=== PATIENT | male | born 1985 | race Caucasian/White ===

== ENCOUNTER 2021-04-09 11:08 | Day surgery (SDC) | payer MEDICAID, SELFPAY ==
[2021-04-09] VITALS (11 sets, daily range): BP systolic 118–173; BP diastolic 43–90; PULSE 56–132; RESP 12–22; TEMP 36.1–37.6; O2SAT 90–99; BMI 23.0
--- NOTE | 2021-04-09 12:19 | PC.NURSE ---
This nurse spoke with [facility] dialysis nurse auto fleet maintenance manager [place] and clarified blood transfusion. Stated that blood could be ran in over two hours or normally since patient had had a recent dialysis treatment.
--- NOTE | 2021-04-09 15:31 | PC.NURSE ---
1510 - REPORT CALLED TO NURSE AND PT TRANSFERRED VIA WC TO CSU ROOM 104. ANTIBODYS WERE FOUND WHEN MATCHING BLOOD IN BLOOD BANK. BLOOD WILL NEED TO BE BROUGHT IN FROM [place] PT NOW OUT PATIENT IN A BED.
--- NOTE | 2021-04-10 00:07 | PC.NURSE ---
Transport company states they will not be able to pick patient up until morning.
[2021-04-10 09:37] VITALS: BP 124/62; PULSE 86; RESP 16; TEMP 36.2
--- NOTE | 2021-04-10 10:05 | PC.CHAP ---
Pastoral Care Encounter/Spiritual Assessment Type of Contact [] Declined cotton presser visit [] Patient/Family/Request visit [] Outpatient visit [] Follow-up visit [] Physician referral [] Code/Alert [x] Routine visit [] Staff referral [] Actively dying [] Patient sleeping [] Family support [] [] Out of room [] Palliative care [] [x] Receiving care in room [] Pre-surgical visit [] Trauma [] Long length of stay [] ICU visit [] Other: Relational/Emotional Strength [] Patient feels connected with others/family/visitors/staff [] Distress [] Loneliness/isolation [] Abandonment Spirituality of Patient [x] Person of Ilda [] Attends Restorationism of their Ilda [] Believes in Prayer [] Reads Bible or Zoroastrianism materials [] There are Spiritual issues to be addressed Adjunct Physics Instructor Interventions [x] Prayer [x] Active listening [x] Non-anxious presence [x] Spiritual/emotional support [] Crisis/trauma care [x] Spiritual counseling [] Bereavement support [] Provided bereavement packet [] Provided Bible/devotional materials [] Provided toy/stuffed animal, coloring book to patient or family member [] Provided Communion [] Anointing/[place] [] Salvation [x] Completed spiritual assessment [] Other: Impact on Illness or Injury [] Angry [] Fearful [] Anxious [] Often cries [] Exhaustion [] Unable to work [] Unable to attend zoroastrianism [] Unable to walk/stand [] Unable to read [] Unable to drive [] Unable to eat/drink [] Unable to sleep [] Unable to be with family [] Patient intubated [] Other: Summary short term had blood transfusion postive has a good attitude going home to day Time spent with patient 10 mins
--- NOTE | 2021-04-10 10:15 | PC.NURSE ---
Patient discharged home with family. Taken to ER entrance in a wheelchair.
== END 2021-04-10 10:15 | disposition home or self-care (01) ==
LOC: GILAB 11:12 → OPS 11:13 → CSU 17:44
PROVIDERS: PCP Emergency Medicine; Visit Provider Internal Medicine
DX: D64.9 Anemia, unspecified (principal)
CPT/HCPCS: 36415; 36430; 80500; 86850; 86870; 86900; 86902; 86920; P9016

== ENCOUNTER 2021-06-07 12:57 | Inpatient (IN) | payer MEDICARE, MEDICAID, SELFPAY ==
[2021-06-07] VITALS (34 sets, daily range): BP systolic 116–202; BP diastolic 77–137; PULSE 76–136; RESP 14–32; TEMP 36.4–37.3; O2SAT 78–98; BMI 27.1; BMI 28.6
--- NOTE | 2021-06-07 13:08 | USR_ITS ---
PROCEDURE INFORMATION: Exam: US Duplex Right Lower Extremity Veins, Limited Exam date and time: 06/07/2021 1:08 PM Age: 35 years old Clinical indication: Swelling (edema) of limb; Lower extremity, right; Additional info: Swelling to right arm TECHNIQUE: Imaging protocol: Real-time Duplex ultrasound of the Right Lower Extremity with 2-D lucero scale, color Doppler flow and spectral waveform analysis with image documentation. Limited exam was focused on the right lower extremity veins. COMPARISON: CT abdomen pelvis wo con [id number] 06/07/2021 1:29 PM FINDINGS: Right deep veins: Unremarkable. The common femoral, femoral, proximal profunda femoral and popliteal veins are patent without thrombus. Normal Doppler waveforms. Normal compressibility and/or augmentation response. Right superficial veins: Unremarkable. Saphenofemoral junction is patent without thrombus. Soft tissues: Unremarkable. US/[place] [id number] IMPRESSION: No evidence of deep vein thrombosis.
--- NOTE | 2021-06-07 13:13 | ECG_ITS ---
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 Measurements Intervals [place] Rate: 90 P: 30 OK: 230 QRS: 139 QRSD: 139 T: 69 QT: 406 QTc: 498 Interpretive Statements Atrial flutter with a fixed AV block INTRAVENTRICULAR CONDUCTION DELAY [130+ ms QRS DURATION] POSSIBLE RIGHT VENTRICULAR HYPERTROPHY [SOME/ALL OF: PROMINENT R IN V1, LATE TRANSITION, RAD, CAROLE, SSS] LATERAL MYOCARDIAL INFARCTION , PROBABLY OLD [40+ ms Q WAVE AND/OR ST/T ABNORMALITY IN I/aVL/V5/V6] INTERPRETATION BASED ON A DEFAULT AGE OF 40 YEARS No previous ECG available for comparison Electronically Signed On 06-08-2021 20:00:05 MACHINE OPERATOR HAY STACKER by Nathanael Yoder M.D. [id number]
--- NOTE | 2021-06-07 13:15 | CTR_ITS ---
PROCEDURE INFORMATION: Exam: CT Abdomen And Pelvis Without Contrast Exam date and time: 06/07/2021 1:15 PM Age: 35 years old Clinical indication: Abdominal pain; Generalized; Abdominal distension and pain TECHNIQUE: Imaging protocol: Computed tomography of the abdomen and pelvis without contrast. Radiation optimization: All CT scans at this facility use at least one of these dose optimization techniques: automated exposure control; mA and/or kV adjustment per patient size (includes targeted exams where dose is matched to clinical indication); or iterative reconstruction. COMPARISON: No relevant prior studies available. RADIATION DOSE METRICS: Total DLP (mGy-cm): 1757.82 FINDINGS: Heart: Cardiomegaly. Liver: Normal. No mass. Gallbladder and bile ducts: Normal. No calcified stones. No ductal dilation. Pancreas: Normal. No ductal dilation. Spleen: Normal. No splenomegaly. Adrenal glands: Normal. No mass. Kidneys and ureters: Bilateral atrophic kidneys. Stomach and bowel: Unremarkable. No obstruction. No mucosal thickening. Appendix: No evidence of appendicitis. Intraperitoneal space: There is a large amount of intraperitoneal fluid/ascites in the abdomen/pelvis. Vasculature: Unremarkable. No abdominal aortic aneurysm. Lymph nodes: Unremarkable. No enlarged lymph nodes. Urinary bladder: Unremarkable as visualized. Reproductive: Unremarkable as visualized. Bones/joints: Unremarkable. No acute fracture. Soft tissues: Soft tissue anasarca. CT/CT abdomen pelvis con [id number] IMPRESSION: 1. Cardiomegaly. 2. Bilateral atrophic kidneys. 3. There is a large amount of ascites and soft tissue anasarca. This can be seen with congestive heart failure or renal failure.
--- NOTE | 2021-06-07 13:15 | XRR_ITS ---
PROCEDURE INFORMATION: Exam: XR Chest Exam date and time: 06/07/2021 1:15 PM Age: 35 years old Clinical indication: Shortness of breath TECHNIQUE: Imaging protocol: XR of the chest. Views: 1 view. COMPARISON: CT abdomen pelvis wo con [id number] 06/07/2021 1:29 PM FINDINGS: Tubes, catheters and devices: Wide bore central venous catheter tip projects over the right atrium. Lungs: There is a ill-defined density in the mid to lower left lung field. Pleural spaces: Unremarkable. No pleural effusion. No pneumothorax. Heart/Mediastinum: Cardiomegaly. Bones/joints: Unremarkable. XR/XR chest 1V portable [id number] IMPRESSION: 1. Cardiomegaly. 2. Ill-defined density overlying the mid to lower left lung field is nonspecific and may represent overlying structures.
[2021-06-07 13:26] LABS: Basophils # 0.1 10^3/uL (0.0-0.1); Basophils % 0.4 %; Hematocrit 25.3 % (42.0-52.0); Lymphocytes # 0.3 10^3/uL (0.8-4.8); Lymphocytes % 1.6 %; Mean Corpuscular HGB Conc 31.6 g/dL (30.0-36.0); Mean Corpuscular Hemoglobin 27.5 pg (28.0-34.0); Mean Corpuscular Volume 86.9 fl (80-94); Monocytes # 0.7 10^3/uL (0.2-0.9); Neutrophils # 15.59 10^3/uL (1.8-7.7); Nucleated Red Blood Cells % 0 %; Platelet Count 190 10^3/cmm (130-400); Red Blood Count 2.91 10^6/uL (4.1-5.3); Red Cell Distribution Width 18.6 % (12.1-15.1); White Blood Count 17.1 10^3/uL (4.0-10.0)
--- NOTE | 2021-06-07 13:30 | W.ED.ABDPA2 ---
HPI - Abdominal Pain General: Chief Complaint: Abdominal Pain Stated Complaint: ABD PAIN Time Seen by Provider: 06/07/21 13:01 Source: patient and EMS History of Present Illness: HPI narrative: 35-year-old male presents emergency department chief complaint of abdominal pain fever reports that his he believes that his PICC site is infected. Patient reports he has missed the last 2 dialysis treatments reports last dialysis was this last Wednesday reports he missed Wednesday and Wednesday due to issues with his family not driving him to dialysis. Patient reports having a low-grade fever generalized malaise fatigue unwell he does not recall any known history of underlying cirrhosis or hepatitis. Patient reports malaise and fatigue mild shortness of breath reporting no other associated symptoms. MD elicited complaint: abdominal pain Associated Symptoms: Reports chills, fever(s) and nausea; Denies vomiting Review of Systems General: Reports: 10 or more systems reviewed and unremarkable except in HPI and below Const: Reports: fever(s), chills, body aches, change in appetite, fatigue and malaise Eyes: Denies: change in vision or blurry vision Card: Reports: edema and swelling of feet/ankles; Denies: chest pain or palpitations Resp: Reports: dyspnea; Denies: productive cough GI: Reports: abdominal pain and nausea; Denies: vomiting : Denies: flank pain Musc: Denies: extremity pain or extremity swelling Skin/Breast: Denies: rash or pruritus Neuro: Denies: headache(s) Psych: Denies: anxiety or depression Murphy/Lymph: Denies: easy bleeding All/Imm: Denies: urticaria, throat swelling or facial swelling [facility] ED PFSH: Medical History Alport syndrome HTN (hypertension) Physical Exam Narrative: EXAM NARRATIVE: Patient appears chronically unwell multiple healing scabs noted to his face. However is nontoxic in appearance afebrile. Patient appears to be quite unwell questionable appearance of being under the influence of drugs or alcohol due to his delayed response and drifting off with difficulty to follow commands. However no focal neurodeficits appreciated Const: COMMON NORMALS: no acute distress and patient oriented x3 GENERAL APPEARANCE: disheveled and appears older than stated age HENMT: COMMON NORMALS: normocephalic and atraumatic HEAD & SCALP: normocephalic and atraumatic Eye: COMMON NORMALS: Equal, round and reactive pupils present and EOMs intact bilaterally PUPIL: Yes Equal, round and reactive pupils present Neck/C-Spine: COMMON NORMALS: full ROM, supple and no JVD Lymph: LYMPHATIC: no lymphadenopathy noted Chest: COMMONS NORMALS: normal inspection of the chest and normal palpation of entire chest wall Resp: COMMON NORMALS: normal respiratory effort, No retractions and clear to auscultation bilaterally EFFORT & INSPECTION: Yes able to speak in complete sentences and Yes symmetric chest movement AUSCULTATION: clear to auscultation bilaterally Cardio: COMMON NORMALS: no JVD, regular rate and regular rhythm RATE: regular rate RHYTHM: regular rhythm GI: COMMON NORMALS: Normal to inspection, nondistended, normoactive bowel sounds present INSPECTION: Yes normal to inspection and Yes abdominal distension (Obvious abdominal wall distention and concerns of cirrhotic liver diseas no) AUSCULTATION: Yes Hypoactive bowel sounds present PALPATION: Yes Firmness to palpation present (GI), Yes Hepatosplenomegaly present and Yes Ascites present PERCUSSION: dullness to percussion : COMMON NORMALS: Yes no CVA tenderness BLADDER/KIDNEY EXAM: Yes no CVA tenderness Back/Pelvis: COMMON NORMALS: no CVA tenderness Extremity: COMMON NORMALS: normal to inspection and full ROM Neuro: COMMON NORMALS: patient oriented x3, CN's II-XII intact bilaterally, moves all extremities and no focal motor deficits Psych: COMMON NORMALS: mental status grossly normal, Normal thought process present, cooperative and normal affect THOUGHT PROCESS: Normal thought process present Skin: COMMON NORMALS: no rashes or lesions noted NARRATIVE SKIN EXAM: Multiple scabs and apparent mostly noted to the head and neck did not appear to be picked on multiple times GENERAL SKIN EXAM: no rashes or lesions noted Course ED course: Patient reports concerns of his PICC line being septic and being bad patient reports that his mother was cleaning off it which noted some greenish discharge from it advised the patient that if the discharge is from coming from the lens it should not be an issue however it was noted that the PICC line had suture has been removed at one point in time or cut from the skin in which it is totally floating at this time. Patient appears to be quite unwell in appearance underlying concerns of potential drugs and alcohol by staff or Based upon his current behavior. Advised the patient that as he is concerned his right extremity is inflamed and swollen he could have upper extremity DVT we will be obtaining a ultrasound to further rule that out he is neurovascular intact distally. Will continue to follow. Patient was started on Zosyn as well as Vanco mycin. He was found have a white blood cell count elevation in which he is also in need of emergent dialysis current potassium 7.6. The patient was started on calcium gluconate did contact our on-call nephrology that suggest 10 units of insulin and 1 amp of dextrose IVP I additionally talked to Dr. Regan ICU physician that will be excepting the patient's case to the ICU. Vital Signs: Vital signs: Vital Signs Temperature 98.7 F 06/07/21 13:06 Pulse Rate 102 H 06/07/21 13:06 Respiratory Rate 22 H 06/07/21 13:06 Blood Pressure 176/113 06/07/21 13:06 MDM - Abdominal Pain Lab Data: Labs: Lab Results 06/07/21 06/07/21 06/07/21 12:45 12:45 12:45 WBC 17.1 10^3/uL H 10 ^3/uL (4.0-10.0) RBC 2.91 10^6/uL L 10 ^6/uL (4.1-5.3) Hgb 8.0 g/dL L g/dL (11.7-16.6) Hct 25.3 % L % (42.0-52.0) MCV 86.9 fl fl (80-94) MCH 27.5 pg L pg (28.0-34.0) MCHC 31.6 g/dL g/dL (30.0-36.0) RDW 18.6 % H % (12.1-15.1) Plt Count 190 10^3/cmm 10^3 /cmm (130-400) MPV 12.0 fL H fL (7.4-10.4) Neut % (Auto) 91.0 % % Lymph % (Auto) 1.6 % % Ashley % (Auto) 4.0 % % Eos % (Auto) 0.0 % % Baso % (Auto) 0.4 % % Neut # (Auto) 15.59 10^3/uL H 1 0^3/uL (1.8-7.7) Lymph # (Auto) 0.3 10^3/uL L 10^ 3/uL (0.8-4.8) Ashley # (Auto) 0.7 10^3/uL 10^3/ uL (0.2-0.9) Eos # (Auto) 0.0 10^3/uL 10^3/ uL (0.0-0.8) Baso # (Auto) 0.1 10^3/uL 10^3/ uL (0.0-0.1) Nucleated RBC % (a uto) 0 % % Nucleated RBCs # 0.0 /100WBC /100W BC PT INR APTT Sodium 134 mmol/L L mmol /L (136-145) Potassium 7.6 mmol/L H* mmo l/L (3.5-5.1) Chloride 93 mmol/L L mmol/ L (98-107) Carbon Dioxide 14 mmol/L L mmol/ L (22-29) Anion Gap 34.6 H (5-19) BUN 106 mg/dL H* mg/d L (6-20) Creatinine 19.8 mg/dL H* mg/ dL (0.7-1.2) GFR Calculation 2.7 mL/min L mL/m in (90-130) Glucose 80 mg/dL mg/dL (65-115) Calculated Osmolal ity 310 mOsm/kg H mOs m/kg (285-295) Lactate Calcium 9.6 mg/dL mg/dL (8.5-10.5) Total Bilirubin 0.7 mg/dL mg/dL (0.15-1.2) AST 13 U/L U/L (0-40) ALT < 5 U/L U/L (0-41) Alkaline Phosphata se 66 IU/L IU/L (40-130) Troponin T Baselin e 114 ng/L H* ng/L (0-15) NT-Pro-B Natriuret Pep > 87597 pg/mL H p g/mL (0-125) Total Protein 6.7 g/dL g/dL (6.6-8.7) Albumin 3.9 g/dL g/dL (3.5-5.2) Globulin 2.8 g/dL g/dL (1.3-4.6) Lipase 10 U/L L U/L (13-60) Ethyl Alcohol < 10 mg/dL mg/dL (0-10) 06/07/21 06/07/21 13:38 13:38 WBC RBC Hgb Hct MCV MCH MCHC RDW Plt Count MPV Neut % (Auto) Lymph % (Auto) Ashley % (Auto) Eos % (Auto) Baso % (Auto) Neut # (Auto) Lymph # (Auto) Ashley # (Auto) Eos # (Auto) Baso # (Auto) Nucleated RBC % (a uto) Nucleated RBCs # PT 21.10 SECONDS H S ECONDS (12.1-14.9) INR 1.78 H (0.8-1.2) APTT 40.8 SECONDS H SE CONDS (23.9-36.7) Sodium Potassium Chloride Carbon Dioxide Anion Gap BUN Creatinine GFR Calculation Glucose Calculated Osmolal ity Lactate 1.0 mmol/L mmol/L (0.5-2.2) Calcium Total Bilirubin AST ALT Alkaline Phosphata se Troponin T Baselin e NT-Pro-B Natriuret Pep Total Protein Albumin Globulin Lipase Ethyl Alcohol Discharge Plan Discharge Patient Disposition: Admitted As Inpatient Clinical Impression: Acute hyperkalemia, Dialysis patient, noncompliant, Leukocytosis Condition: Stable Coding Level of Care Code ED Leather Drier for Glendy Fwd Exam Comprehensive
[2021-06-07] MEDS: sodium chloride 0.9% 500 ML 999 ML IV (13:49)
--- NOTE | 2021-06-07 13:54 | PC.NURSE ---
pt placed on continuous spo2, nibp, and cm.
[2021-06-07 14:01] LABS: INR 1.78 (0.8-1.2)
[2021-06-07 14:01] LABS: Troponin(5th) Baseline 114 ng/L (0-15)
[2021-06-07 14:02] LABS: Partial Thromboplastin Time 40.8 SECONDS (23.9-36.7)
--- NOTE | 2021-06-07 14:02 | PC.NURSE ---
Critical lab Troponin 114
[2021-06-07 14:07] LABS: Alanine Aminotransferase < 5 U/L (0-41); Albumin Level 3.9 g/dL (3.5-5.2); Alkaline Phosphatase 66 IU/L (40-130); Anion Gap 34.6 (5-19); Aspartate Amino Transferase 13 U/L (0-40); Calcium 9.6 mg/dL (8.5-10.5); Carbon Dioxide 14 mmol/L (22-29); Chloride 93 mmol/L (98-107); Globulin 2.8 g/dL (1.3-4.6); Glomerular Filtration Rate 2.7 mL/min (90-130); Glucose 80 mg/dL (65-115); Lipase 10 U/L (13-60); Osmolality Calculated 310 mOsm/kg (285-295); Sodium 134 mmol/L (136-145); Total Bilirubin 0.7 mg/dL (0.15-1.2); Total Protein 6.7 g/dL (6.6-8.7)
[2021-06-07 14:08] LABS: Alcohol Level < 10 mg/dL (0-10)
[2021-06-07 14:10] LABS: Blood Urea Nitrogen 106 mg/dL (6-20); Potassium 7.6 mmol/L (3.5-5.1)
--- NOTE | 2021-06-07 14:39 | PM.CONSULT ---
Providers/Reason For Consult Consulting Physician/Specialty*: Maricruz Heath DO, telenephrology Reason for Consult*: ESRD, hyperkalemia Primary Care Provider: Kumar Carvajal MD History of Present Illness History of Present Illness Link Ann is a 35 year old male presents to ER for evaluation after missing at least 2 dialysis sessions. Patient states he missed 2, transitional nurse reports last HD treatment was May 28. Patient states he did not have transportation. Reports drainage from dialysis catheter exit site. 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 + failed AVF Medications/Allergies Home Medications Medication Instructions Recorded Confirmed Last Taken Type furosemide 80 mg PO BID 04/09/21 06/07/21 Unknown History hydralazine 100 mg PO TID 04/09/21 06/07/21 Unknown History minoxidil 5 mg PO DAILY 04/09/21 06/07/21 Unknown History pantoprazole 40 mg PO DAILY 04/09/21 06/07/21 Unknown History vit B,W-EX-ecpz-selen-vit D3-E 1 tab PO DAILY 04/09/21 06/07/21 Unknown History [RenaPlex-D] carvedilol 25 mg PO BID 06/07/21 06/07/21 Unknown History lactulose [Generlac] 30 ml PO DAILY PRN 06/07/21 06/07/21 Unknown History nifedipine 90 mg PO DAILY 06/07/21 06/07/21 Unknown History Allergies Allergy/AdvReac Type Severity Reaction Status Date / Time strawberry Allergy Mild ALGY-Rash Unverified 06/07/21 16:24 PFSH Acute PFSH: Medical History Alport syndrome Dialysis AV fistula malfunction HTN (hypertension) Surgical History Fistula Left forearm Status post dialysis Family History Other ESRD (end stage renal disease) Social History Smoking and tobacco status: never smoked Alcohol intake: never Substance/Drug Use: former Other details last substance use: Marijuana. Denies any other. Denies IVDU. Lives independently: Yes Household members: spouse Marital status: Current occupational status: unemployed Vitals/I&O/Wt Last Vital Signs Temp 98.7 F 06/07/21 13:06 Pulse 102 H 06/07/21 13:06 Resp 22 H 06/07/21 13:06 BP 176/113 06/07/21 13:06 Weight last 48 hrs Weight 90.718 kg Physical Exam Const: COMMON NORMALS: no acute distress GENERAL APPEARANCE: cooperative Neck/C-Spine: OTHER: Tunneled right IJ catheter - no apparent drainage or redness at this time Extremity: GENERAL: Yes edema Data Micro: Micro: Microbiology 06/07/21 13:40 Blood Culture - Pr eliminary Blood SPECIMEN [facility] 06/07/21 13:38 Blood Culture - Pr eliminary Blood SPECIMEN [facility] Imaging^: CT Abd/Pel: Radiologist's impression: 1. Cardiomegaly. 2. Bilateral atrophic kidneys. 3. There is a large amount of ascites and soft tissue anasarca. This can be seen with congestive heart failure or renal failure. CXR: Radiologist's impression: 1. Cardiomegaly. 2. Ill-defined density overlying the mid to lower left lung field is nonspecific and may represent overlying structures. A&P Additional A&P Information seen via telehealth with assistance of RN at bedside 1. ESRD 2. Hyperkalemia, metabolic acidosis due to missed dialysis 3. Volume overload 4. R/O line infection 5. Anemia 6. Hypertension Plan: medical treatment of hyperkalemia while awaiting initiation of dialysis today. panculture, broad spectrum antibiotics. HD today 3.5h, 2K 2L UF. HD again tomorrow. Remove HD catheter tomorrow after dialysis if BC positive, or global climate change researcher wire and move exit site on Wednesday if BC neg. Consult Attestations Medical Necessity Statement: see above Time Spent in Patient Care: 16 - 35 minutes Coding Level of Care Code Acute Silk Screen Repairer for Glendy Sanchez
[2021-06-07 14:41] LABS: NT Pro B Type Natriuretic Pept > 70000 pg/mL (0-125)
[2021-06-07] MEDS: calcium gluconate 0.9% NaCL 1 GM/50 ML PREMIX IV (15:00)
[2021-06-07] MEDS: insulin regular-human 100 units/1 mL 10 UNIT IVP (15:01)
[2021-06-07] MEDS: dextrose 50% syringe 50 mL 25 ML IVP (15:01)
--- NOTE | 2021-06-07 15:13 | ECG_ITS ---
[facility] Test Date: 2021-06-07 Pat Name: Link Ann Department: Room: ICU12 Gender: Male Vb Developer: : 1985 Requested By: Chester Schulz Order Number: [id number] Maite MD: Nathanael Yoder M.D. Measurements Intervals [place] Rate: 99 P: 36 VT: 176 QRS: 67 QRSD: 95 T: 93 QT: 361 QTc: 465 Interpretive Statements SINUS RHYTHM MINIMAL ST DEPRESSION [0.025+ mV ST DEPRESSION] Compared to ECG 06/07/2021 13:44:14 ST (T wave) deviation now present First degree AV block no longer present Intraventricular conduction delay no longer present Atrial abnormality no longer present Myocardial infarct finding no longer present Electronically Signed On 06-08-2021 20:12:45 DIETARY AID by Nathanael Yoder M.D. [id number]
[2021-06-07] MEDS: piperacillin-tazobactam 4.5 GM in sodium chloride 0.9% (plus) 50 ML IV (15:14)
--- NOTE | 2021-06-07 15:21 | PC.NURSE ---
PT BED CHANGED FOR INCONTINENCE OF STOOL.
[2021-06-07 15:26] LABS: Hepatitis B Surface AB 129.8 (11.5-1000); Hepatitis B Surface Antigen Non-Reactive (Nonreactive); Hepatitis C Virus Antibody Non-Reactive (Nonreactive)
[2021-06-07] MEDS: vancomycin 1,000 MG in sodium chloride 0.9% 250 ML 250 MG IV (15:41)
[2021-06-07 15:59] LABS: Adenovirus Not Detected (NOT DETECT); Chlamydia Pneumoniae Not Detected (NOT DETECT); Coronavirus 229E,HKU1,NL63,OC4 Not Detected (NOT DETECT); Human Metapneumovirus Not Detected (NOT DETECT); Human Rhinovirus/Enterovirus Not Detected (NOT DETECT); Influenza A Not Detected (NOT DETECT); Influenza A H1 Not Detected (NOT DETECT); Influenza A H1-2009 Not Detected (NOT DETECT); Influenza A H3 Not Detected (NOT DETECT); Influenza B Not Detected (NOT DETECT); Mycoplasma Pneumoniae Not Detected (NOT DETECT); Parainfluenza Virus Type 1 Not Detected (NOT DETECT); Parainfluenza Virus Type 2 Not Detected (NOT DETECT); Parainfluenza Virus Type 3 Not Detected (NOT DETECT); Parainfluenza Virus Type 4 Not Detected (NOT DETECT); Respiratory Syncytial Virus A Not Detected (NOT DETECT); Respiratory Syncytial Virus B Not Detected (NOT DETECT); SARS-COV-2 Not Detected (NOT DETECT)
--- NOTE | 2021-06-07 16:02 | P.HP_ITS ---
Providers/Chief Complaint Admitting Physician: Rodolfo Regan Primary Care Provider: Kumar Carvajal MD Chief Complaint: ABD PAIN History of Present Illness Pleasant 35-year-old gentleman with ESRD, HTN, Alport syndrome with hearing loss, missed several dialysis sessions as he did not have a ride, also states had had redness, swelling around right chest tunneled HD catheter in the past week with some greenish discharge at the insertion site although that had resolved. The catheter was originally inserted in [place] possibly a year ago. He has an AV fistula in the left forearm for which she had an appointment with vascular surgery in [place] this week, but has not been able to attend the appointment. Review of Systems Const: Reports: fever(s), fatigue and malaise Eyes: Denies: change in vision or blurry vision Card: Reports: edema and swelling of feet/ankles; Denies: chest pain or palpitations Resp: Reports: dyspnea and non-productive cough; Denies: productive cough GI: Reports: abdominal pain and nausea; Denies: vomiting or diarrhea : Denies: flank pain or hematuria Musc: Denies: extremity pain or extremity swelling Skin/Breast: Reports: rash and pruritus Neuro: Denies: headache(s) Psych: Denies: anxiety or depression Murphy/Lymph: Denies: easy bleeding All/Imm: Denies: urticaria, throat swelling or facial swelling Medications/Allergies Home Medications Medication Instructions Recorded Confirmed Last Taken Type furosemide 80 mg PO BID 04/09/21 06/07/21 Unknown History hydralazine 100 mg PO TID 04/09/21 06/07/21 Unknown History minoxidil 5 mg PO DAILY 04/09/21 06/07/21 Unknown History pantoprazole 40 mg PO DAILY 04/09/21 06/07/21 Unknown History vit B,Y-EM-uqdl-selen-vit D3-E 1 tab PO DAILY 04/09/21 06/07/21 Unknown History [RenaPlex-D] carvedilol 25 mg PO BID 06/07/21 06/07/21 Unknown History lactulose [Generlac] 30 ml PO DAILY PRN 06/07/21 06/07/21 Unknown History nifedipine 90 mg PO DAILY 06/07/21 06/07/21 Unknown History Allergies Allergy/AdvReac Type Severity Reaction Status Date / Time strawberry Allergy Mild ALGY-Rash Unverified 06/07/21 16:24 PFSH Acute PFSH: Medical History Alport syndrome Dialysis AV fistula malfunction HTN (hypertension) Surgical History Fistula Left forearm Status post dialysis Family History Other ESRD (end stage renal disease) Social History Smoking and tobacco status: never smoked Alcohol intake: never Substance/Drug Use: former Other details last substance use: Marijuana. Denies any other. Denies IVDU. Lives independently: Yes Household members: spouse Marital status: Current occupational status: unemployed Vitals/I&O/Wt Last Vital Signs Temp 98.7 F 06/07/21 13:06 Pulse 76 06/07/21 15:18 Resp 15 06/07/21 15:18 BP 163/109 06/07/21 15:18 Pulse Ox 94 06/07/21 15:18 Weight last 48 hrs Weight 90.718 kg Physical Exam Const: COMMON NORMALS: no acute distress and patient oriented x3 ORIENTATION/CONSCIOUSNESS: Yes lethargic OTHER: Very [place]. Awakens to voice. HENMT: COMMON NORMALS: oropharynx normal Neck/C-Spine: COMMON NORMALS: no JVD Chest: OTHER: R chest tunneled catheter, currently do not appreciate erythema or drainage from the access site or significant swelling around the PICC, minimal swelling if any Resp: COMMON NORMALS: normal respiratory effort and clear to auscultation bilaterally AUSCULTATION: clear to auscultation bilaterally Cardio: COMMON NORMALS: no JVD, regular rhythm, S1 normal heart sound present, S2 normal heart sound present and No murmurs present (Cardio) RHYTHM: regular rhythm HEART SOUNDS: S1 normal heart sound present and S2 normal heart sound present GI: COMMON NORMALS: Normal to inspection, nondistended, normoactive bowel sounds present and Soft to palpation INSPECTION: Yes abdominal distension PALPATION: Yes Soft to palpation and Yes Tenderness to palpation present (GI) (Mild-moderate nonlocalized, reports chronic) Extremity: COMMON NORMALS: no joint enlargement and no pedal edema OTHER: Left forearm fistula Neuro: COMMON NORMALS: patient oriented x3 and moves all extremities Skin: COMMON NORMALS: no rashes or lesions noted GENERAL SKIN EXAM: no rashes or lesions noted OTHER: Diffuse excoriated lesions on face, LE, he states started after strawberry allergy Data : 06/07/21 12:45 06/07/21 12:45 Micro: Microbiology 06/07/21 13:40 Blood Culture - Preliminary Blood SPECIMEN COLLECTED 06/07/21 13:38 Blood Culture - Preliminary Blood SPECIMEN COLLECTED A&P Assessment and plan (1) Acute hyperkalemia: After missed hemodialysis sessions. Potassium 7.6. Urgent/emergent hemodialysis today and likely again tomorrow. Appreciate nephrology consultation. Status: Acute (2) Uremia: Urgent dialysis as above. Possibly additional dialysis tomorrow. Status: Acute (3) Dialysis patient, noncompliant: Status: Acute (4) Infection of central venous catheter insertion site: Blood cultures collected, discussing with microbiology cultures from periphery. Requested additional cultures from tunneled catheter. Currently requiring urgent/emergent hemodialysis as above. Subsequently consider replacement of the catheter as per reports it may have been in place for close to a year. Originally placed in [facility]. Empiric antibiotic coverage with vancomycin, Zosyn. Status: Acute (5) Cardiomegaly: Incidentally noted on CT abdomen pelvis. With ascites. Possible CHF. Assess TTE. Status: Acute (6) Cough: Pending COVID-19 PCR. Ill-defined left lower lobe opacity, repeat chest x-ray in the morning. Currently empiric antibiotic coverage with vancomycin, Zosyn. Status: Acute (7) Ascites: Urgent dialysis. Assess TTE. Monitor symptoms, condition, consider paracentesis. Status: Acute (8) Troponin level elevated: Suspected demand ischemia secondary to uremia, fluid overload with missed dialysis, ESRD. Does have cardiomegaly. No chest pain. Assess TTE. Complete troponin EKG series. Monitor on telemetry. Would at some point benefit from risk stratification with stress testing. Status: Acute (9) Leukocytosis: Unclear source of infection, possible pneumonia, possibly catheter site infection. COVID-19 PCR pending. Empiric antibiotics as above. Follow-up blood cultures. Status: Acute Additional A&P Information HTN Attestations Medical Necessity Statement*: Admission of over 2 midnights is anticipated for assessment of management of severe hyperkalemia, uremia, fluid overload, hemodialysis catheter site infection, assessment of cardiomegaly, ascites, possible CHF. Coding Level of Care Code Acute Materials Director for [facility] Fwd Diagnoses Acute hyperkalemia E87.5 Uremia N19 Dialysis patient, noncompliant Z91.15 Infection of central venous catheter insertion site T80.212A Cardiomegaly I51.7 Cough R05.9 Ascites R18.8 Troponin level elevated R77.8 Leukocytosis D72.829
[2021-06-07 16:04] LABS: Troponin 5 2HR 101.4 ng/L (0-15); Troponin 5 2HR Delta -12.6 ABS# (0-10)
[2021-06-07] MEDS: ondansetron 2 mg/ML SDV 2 mL 4 MG IVP (18:28)
[2021-06-07] MEDS: acetaminophen 325 mg Tablet 650 MG PO (19:20)
--- NOTE | 2021-06-07 19:22 | PC.NURSE ---
Heparin scanned was given by Dialysis nurse, Lenard Benitez RN, duiring dialysis treatment
[2021-06-07 19:33] LABS: Troponin 5 6HR Delta -4.5 ng/L (0-12)
[2021-06-07 19:35] LABS: Troponin 5 6HR 109.5 ng/L (0-15)
[2021-06-07 20:13] LABS: Amphetamines Screen Urine Negative (Negative); Barbiturates Screen Urine Negative (Negative); Benzodiazepines Screen Urine Negative (Negative); Cocaine Screen Urine Negative (Negative); Opiate Screen Urine Negative (Negative); PCP Screen Urine Negative (Negative); THC Screen Urine Negative (Negative)
[2021-06-07] MEDS: enoxaparin 40 mg/0.4 mL Syringe SUBCUT (20:17)
[2021-06-07] MEDS: hyDRALAzine 50 mg Tablet 100 MG PO (20:27)
[2021-06-07] MEDS: carvedilol 25 mg Tablet PO (20:27)
[2021-06-07] MEDS: minoxidil 10 mg Tablet 5 MG PO (21:02)
[2021-06-07] MEDS: heparin, porcine 1,000 unit/mL INJ 10 mL 1800 UNIT HE ×2 (21:41→21:42)
[2021-06-08] VITALS (33 sets, daily range): BP systolic 104–156; BP diastolic 54–123; PULSE 73–96; RESP 10–34; TEMP 36.6–37.7; O2SAT 78–98
[2021-06-08] MEDS: acetaminophen 325 mg Tablet 650 MG PO ×2 (01:09→19:51)
[2021-06-08] MEDS: piperacillin-tazobactam 3.375 GM in sodium chloride 0.9% (plus) 50 ML IV ×2 (01:09→15:57)
[2021-06-08 05:26] LABS: Basophils # 0.1 10^3/uL (0.0-0.1); Basophils % 0.6 %; Eosinophils % 0.3 %; Hematocrit 23.8 % (42.0-52.0); Hemoglobin 7.3 g/dL (11.7-16.6); Lymphocytes # 0.5 10^3/uL (0.8-4.8); Lymphocytes % 4.4 %; Mean Corpuscular HGB Conc 30.7 g/dL (30.0-36.0); Mean Corpuscular Hemoglobin 26.7 pg (28.0-34.0); Mean Corpuscular Volume 87.2 fl (80-94); Mean Platelet Volume 11.9 fL (7.4-10.4); Monocytes # 0.7 10^3/uL (0.2-0.9); Monocytes % 6.1 %; Neutrophils # 10.26 10^3/uL (1.8-7.7); Neutrophils % 87.4 %; Nucleated Red Blood Cells % 0 %; Platelet Count 184 10^3/cmm (130-400); Red Blood Count 2.73 10^6/uL (4.1-5.3); Red Cell Distribution Width 18.5 % (12.1-15.1); White Blood Count 11.7 10^3/uL (4.0-10.0)
[2021-06-08 05:43] LABS: Alanine Aminotransferase 7 U/L (0-41); Albumin Level 3.4 g/dL (3.5-5.2); Alkaline Phosphatase 80 IU/L (40-130); Anion Gap 24.4 (5-19); Aspartate Amino Transferase 14 U/L (0-40); Blood Urea Nitrogen 76 mg/dL (6-20); Calcium 8.2 mg/dL (8.5-10.5); Carbon Dioxide 23 mmol/L (22-29); Chloride 94 mmol/L (98-107); Globulin 2.6 g/dL (1.3-4.6); Glomerular Filtration Rate 3.8 mL/min (90-130); Glucose 102 mg/dL (65-115); Osmolality Calculated 303 mOsm/kg (285-295); Potassium 6.4 mmol/L (3.5-5.1); Sodium 135 mmol/L (136-145); Total Bilirubin 0.6 mg/dL (0.15-1.2)
--- NOTE | 2021-06-08 07:45 | P.PN_ITS ---
Subjective Subjective: Interval history: Reports right arm pain - has had for weeks. AVF surgery was left forearm RN reports observed apnea with associated hypoxia overnight denies dyspnea Medications: Reviewed: Yes Vitals/I&O/Wt Last Vital Signs Temp 99.5 F 06/08/21 04:00 Pulse 81 06/08/21 05:51 Resp 15 06/08/21 04:15 BP 128/80 06/08/21 04:15 Pulse Ox 83 L 06/08/21 04:15 06/07/21 06/08/21 06/08/21 22:59 06:59 14:59 Intake Total 1220 / 1220 288 / 1508 Output Total Balance 1200 / 1200 288 / 1488 Weight last 48 hrs Weight 89.993 kg Weight 98.432 kg Weight 90.718 kg Physical Exam Const: COMMON NORMALS: no acute distress GENERAL APPEARANCE: cooperative Data : 06/08/21 04:51 06/08/21 04:51 Micro: Microbiology 06/07/21 13:38 Blood Culture - Preliminary Blood 06/07/21 17:22 Blood Culture - Preliminary Blood SPECIMEN COLLECTED 06/07/21 17:22 Blood Culture - Preliminary Blood SPECIMEN COLLECTED 06/07/21 13:40 Blood Culture - Preliminary Blood SPECIMEN COLLECTED A&P Additional A&P Information Seen via telehealth with assistance of RN at bedside 1. ESRD 2. Hyperkalemia due to missed dialysis 3. Volume overload 4. R/O line infection. BC pending, on broad spectrum antibiotics. 5. Anemia, Hb lower. Check iron studies, epogen at dialysis 6. Hypertension 7. History of sleep apnea with observed episodes associated with desaturation overnight per RN Plan: HD today. . HD today 4h, 2K 3L UF. HD again tomorrow. Remove HD catheter tomorrow after dialysis if BC positive, or tar heat exchanger cleaner wire and move exit site on Wednesday if BC neg. Resp evaluation for sleep apnea. Attestations Medical Necessity Statement*: see above Time Spent in Patient Care: 16 - 35 minutes Coding Level of Care Code Acute Licensed Real Estate Broker for Glendy Sanchez Exam Problem Focused
--- NOTE | 2021-06-08 08:11 | CTR_ITS ---
PROCEDURE INFORMATION: Exam: CT Chest Without Contrast; Diagnostic Exam date and time: 06/08/2021 8:11 AM Age: 35 years old Clinical indication: Shortness of breath; Additional info: Hypoxia TECHNIQUE: Imaging protocol: Diagnostic computed tomography of the chest without contrast. Radiation optimization: All CT scans at this facility use at least one of these dose optimization techniques: automated exposure control; mA and/or kV adjustment per patient size (includes targeted exams where dose is matched to clinical indication); or iterative reconstruction. COMPARISON: CR (CHEST, ) 06/07/2021 1:30 PM RADIATION DOSE METRICS: Total DLP (mGy-cm): 817.88 FINDINGS: Tubes, catheters and devices: Central venous catheter tip is positioned in the right atrium. Lungs: There are bilateral pulmonary ground-glass opacities. Dependent atelectatic changes are present in the lungs. Pleural spaces: Unremarkable. No pneumothorax. No pleural effusion. Heart: Cardiomegaly. Aorta: Unremarkable. No aortic aneurysm. Lymph nodes: Unremarkable. No enlarged lymph nodes. Intraperitoneal space: There is ascites in the upper abdomen. Bones/joints: Unremarkable. No acute fracture. Soft tissues: Soft tissue anasarca. CT/CT chest con [id number] IMPRESSION: 1. Cardiomegaly. Bilateral pulmonary ground-glass opacities in this patient may represent pulmonary edema and/or pneumonia. 2. There is soft tissue anasarca and ascites in the upper abdomen.
[2021-06-08] MEDS: NIFEdipine ER (24 hr) 30 mg Tablet 90 MG PO (09:27)
[2021-06-08] MEDS: hyDRALAzine 50 mg Tablet 100 MG PO ×3 (09:27→20:04)
[2021-06-08] MEDS: pantoprazole DR 40 mg Tablet PO (09:27)
[2021-06-08] MEDS: carvedilol 25 mg Tablet PO ×2 (09:27→18:08)
[2021-06-08] MEDS: FUROsemide 40 mg Tablet 80 MG PO ×2 (09:27→18:08)
[2021-06-08] MEDS: minoxidil 10 mg Tablet 5 MG PO (09:29)
[2021-06-08 11:24] LABS: Bacillus cereus group Not Detected (NOT DETECT); Bacillus subtillis group Not Detected (NOT DETECT); Corynebacterium Not Detected (NOT DETECT); Cutibacterium acnes (P.acnes) Not Detected (NOT DETECT); Enterococcus Not Detected (NOT DETECT); Enterococcus faecalis Not Detected (NOT DETECT); Enterococcus faecium Not Detected (NOT DETECT); Lactobacillus species Not Detected (NOT DETECT); Listeria Not Detected (NOT DETECT); Listeria monocytogenes Not Detected (NOT DETECT); Micrococcus Not Detected (NOT DETECT); Pan Candida Not Detected (NOT DETECT); Pan Gram-Negative Not Detected (NOT DETECT); Staphylococcus epidermidis Not Detected (NOT DETECT); Staphylococcus lugdunensis Not Detected (NOT DETECT); Staphylococcus species Detected (NOT DETECT); Streptococcus agalactiae Not Detected (NOT DETECT); Streptococcus anginosus group Not Detected (NOT DETECT); Streptococcus pneumoniae Not Detected (NOT DETECT); Streptococcus pyogenes Not Detected (NOT DETECT); Streptococcus species Not Detected (NOT DETECT); mecC Not Detected (NOT DETECT)
[2021-06-08 11:27] LABS: mecA Detected (NOT DETECT)
--- NOTE | 2021-06-08 13:07 | PM.PN ---
Subjective Subjective: Interval history: He is feeling better today. Overall less malaise. Less abdominal distention/discomfort. Complains of pain in the right forearm which is swollen causing weakness in the artificial flower maker of the right hand. He is able to move his thumb without problems. Denies [id number] or loss of sensation. Hand is warm and perfused. Discussed with him results of duplex which was negative for DVT. He states he hit it with a range try to fix his girlfriend's car. Vitals/I&O/Wt Last Vital Signs Temp 99.5 F 06/08/21 04:00 Pulse 81 06/08/21 05:51 Resp 15 06/08/21 04:15 BP 128/80 06/08/21 04:15 Pulse Ox 83 L 06/08/21 04:15 06/07/21 06/08/21 06/08/21 22:59 06:59 14:59 Intake Total 1220 / 1220 288 / 1508 Output Total 20 / 20 Balance 1200 / 1200 288 / 1488 Weight last 48 hrs Weight 89.993 kg Weight 98.432 kg Weight 90.718 kg Physical Exam Const: COMMON NORMALS: no acute distress, patient oriented x3 and alert GENERAL APPEARANCE: cooperative ORIENTATION/CONSCIOUSNESS: Yes awake OTHER: Very [place]. HENMT: COMMON NORMALS: oropharynx normal Neck/C-Spine: COMMON NORMALS: no JVD Chest: OTHER: R chest tunneled catheter, currently do not appreciate erythema or drainage from the access site or significant swelling around the PICC, minimal swelling if any Resp: COMMON NORMALS: normal respiratory effort and clear to auscultation bilaterally AUSCULTATION: clear to auscultation bilaterally Cardio: COMMON NORMALS: no JVD, regular rhythm, S1 normal heart sound present, S2 normal heart sound present and No murmurs present (Cardio) RHYTHM: regular rhythm HEART SOUNDS: S1 normal heart sound present and S2 normal heart sound present GI: COMMON NORMALS: Normal to inspection, nondistended, normoactive bowel sounds present and Soft to palpation INSPECTION: Yes abdominal distension PALPATION: Yes Soft to palpation and Yes Tenderness to palpation present (GI) (Mild-moderate nonlocalized, reports chronic) Extremity: COMMON NORMALS: no joint enlargement and no pedal edema OTHER: Left forearm fistula R forearm mildly swollen compared to L. Moving fingers, but difficulty with artificial flower maker apart from adducting thumb. No loss of sensation or paresthesia. Warm and perfused. Neuro: COMMON NORMALS: patient oriented x3 and moves all extremities SENSORIUM/ORIENTATION: Yes alert Skin: COMMON NORMALS: no rashes or lesions noted GENERAL SKIN EXAM: no rashes or lesions noted OTHER: Diffuse excoriated lesions on face, LE, he states started after strawberry allergy Data : 06/08/21 04:51 06/08/21 04:51 Micro: Microbiology 06/07/21 13:40 Blood Culture - Preliminary Blood Staphylococcus aureus 06/07/21 13:38 Blood Culture - Preliminary Blood Staphylococcus aureus 06/07/21 17:22 Blood Culture - Preliminary Blood SPECIMEN COLLECTED 06/07/21 17:22 Blood Culture - Preliminary Blood SPECIMEN COLLECTED A&P Assessment and plan (1) Acute hyperkalemia: Underwent urgent dialysis on 06/07. Additional dialysis today, and tomorrow morning. Subsequently dialysis catheter to be removed due to bacteremia. May need Kayexalate while dialysis catheter is out for line holiday. Status: Acute (2) Uremia: Additional dialysis tomorrow. Status: Acute (3) Infection of central venous catheter insertion site: Underwent urgent dialysis on 06/07. Additional dialysis today, and again tomorrow morning prior to removal of the dialysis catheter after HD tomorrow for line holiday. Sent tip for culture. Continue vancomycin given Staph aureus 4/4 bottles on culture. Repeat blood culture tomorrow or day after. Originally placed in [facility] he reports 8-9 months ago. Empiric antibiotic coverage with vancomycin, Zosyn. Status: Acute (4) Dialysis patient, noncompliant: Status: Acute (5) Cardiomegaly: Incidentally noted on CT abdomen pelvis. With ascites. Ascites improving with dialysis. Likely diastolic CHF. Noted LVH. Noted moderate MR. Probably severe TR. In light of Staph aureus bacteremia would pursue BALTAZAR -discussed with cardiology, will assess for BALTAZAR possibly tomorrow. In light of troponin elevation, CHF, would at some point nonurgently also pursue risk stratification with stress testing. Dialysis for CHF, fluid overload. Status: Acute (6) Ascites: Improving with dialysis. Abdominal discomfort improving. Additional dialysis today and tomorrow. If persistent discomfort, consider paracentesis. Status: Acute (7) Troponin level elevated: Suspected demand ischemia secondary to uremia, fluid overload with missed dialysis, ESRD. Does have cardiomegaly. No chest pain. Troponin with elevation. Risk factors for CAD. No sign of acute LA, likely demand ischemia type II LA, would pursue additional stress testing once able to. Status: Acute (8) Leukocytosis: Staph aureus bacteremia. Possible sepsis on presentation with leukocytosis 17.1, sinus tachycardia. 90-100. Status: Acute (9) Right forearm pain: Right forearm pain. Yesterday managed with venous duplex, no DVT. Persistent pain on the ulnar side. Reports injury with a range trying to fix his girlfriend's car. Pain makes it difficult for him to artificial flower maker/make a fist. Able to abduct his thumb. Denies loss of sensation or paresthesia. Hand appears perfused. Will further image with x-ray, if no fracture, now given with blood cultures coming back with Staph aureus consider additionally pursuing a contrasted MRI study. Status: Acute (10) LVH (left ventricular hypertrophy): With history of hypertension. Not adherent with hemodialysis. I am not not certain that he is adherent with his medications at home. Continue HTN medicines. Aspirin, beta-lucas. Stress test when able. Unclear benefit of statin in setting of ESRD on dialysis. Status: Acute (11) Moderate mitral regurgitation: This appears to be new finding without on history. In the setting of Staph aureus bacteremia arrangements for BALTAZAR. Discussed with cardiology, tentatively possibly tomorrow. Status: Acute (12) Severe tricuspid regurgitation: Status: Acute (13) Staphylococcus aureus bacteremia: Likely secondary to hemodialysis catheter infection. After additional dialysis tomorrow morning due to fluid overload, CHF, hyperkalemia, uremia, dialysis catheter to be removed for line holiday. Continue vancomycin. Empirically for now with Zosyn as well. Right forearm pain, after injury with range, will assess for fracture, but in case x-rays without fracture consider pursuit of MRI to exclude soft tissue infection. CT chest does not appear to show embolic disease. Monitor for symptoms that may suggest sites of seeding. Status: Acute (14) Hypoxia: Negative COVID-[address] chest obtained due to ill-defined left lower lobe opacity, repeat chest x-ray in the morning. No sign of septic embolic disease. Groundglass opacities, suggestive of edema or pneumonitis. Suspect edema given moderate-severe mitral regurgitation. Noted severe tricuspid regurgitation. New diastolic CHF, fluid overload with missed sessions of dialysis. Continue hemodialysis to remove extra volume. Currently empiric antibiotic coverage with vancomycin, Zosyn. Status: Acute (15) Cough: Status: Acute Additional A&P Information HTN Attestations Medical Necessity Statement*: Continue admission for assessment management of uremia, hyperkalemia, acute diastolic CHF in a gentleman with ESRD with missed dialysis sessions, extra sessions of dialysis, assessment and management of Staph aureus bacteremia, removal of dialysis catheter, assessment for evidence of endocarditis with new valvular abnormalities Critical Care Time: The high probability of a clinically significant, sudden or life threatening deterioration of the patient's renal with uremia, hyperkalemia, cardiovascular system(s), staphylococcal bacteremia and possible endocarditis required my full and direct attention, intervention and personal management. The critical care time is as shown. This time is in addition to time spent performing any reported procedures but includes the following: x Data and vital sign review and interpretation x Patient assessment, examination and intervention x Documentation x Medication orders and management Critical Care Time (min): 75 Coding Level of Care Code Acute Boat Rental Clerk for [facility] Fwd Diagnoses Acute hyperkalemia E87.5 Uremia N19 Infection of central venous catheter insertion site T80.212A Dialysis patient, noncompliant Z91.15 Cardiomegaly I51.7 Ascites R18.8 Troponin level elevated R77.8 Leukocytosis D72.829 Right forearm pain M79.631 LVH (left ventricular hypertrophy) I51.7 Moderate mitral regurgitation I34.0 Severe tricuspid regurgitation I07.1 Staphylococcus aureus bacteremia R78.81; B95.61 Hypoxia R09.02 Cough R05.9
--- NOTE | 2021-06-08 13:10 | XRR_ITS ---
PROCEDURE INFORMATION: Exam: XR Right Forearm Exam date and time: 06/08/2021 1:10 PM Age: 35 years old Clinical indication: Pain; Lower or forearm; Right; Additional info: Pain, injured, assess for fracture TECHNIQUE: Imaging protocol: XR Right forearm. Views: 2 views. COMPARISON: No relevant prior studies available. FINDINGS: Bones/joints: Normal. Soft tissues: Normal. XR/XR forearm RT 2V [id number] IMPRESSION: No acute findings.
--- NOTE | 2021-06-08 14:05 | PM.CONSULT ---
Providers/Reason For Consult Consulting Physician/Specialty*: General Surgery Dr. Worthington Reason for Consult*: Infected hemodialysis catheter Attending Physician: Rodolfo Regan Primary Care Provider: Kumar Carvajal MD History of Present Illness History of Present Illness Link Ann is a 35 year old male with ESRD who has a nonfunctioning AV fistula and has had multiple hemodialysis catheters placed in the past. He states that his current hemodialysis catheter was placed in [place] about 8 to 9 months ago. Patient presented to the ER with lethargy after he missed his last 2 dialysis appointments. There was concern about possible catheter infection and therefore blood cultures were drawn which were positive for staph aureus. Patient is currently receiving dialysis and is due for another round tomorrow. Review of Systems General: Reports: 10 or more systems reviewed and unremarkable except in HPI and below Medications/Allergies Home Medications Medication Instructions Recorded Confirmed Last Taken Type furosemide 80 mg PO BID 04/09/21 06/07/21 Unknown History hydralazine 100 mg PO TID 04/09/21 06/07/21 Unknown History minoxidil 5 mg PO DAILY 04/09/21 06/07/21 Unknown History pantoprazole 40 mg PO DAILY 04/09/21 06/07/21 Unknown History vit B,H-IW-mwmb-selen-vit D3-E 1 tab PO DAILY 04/09/21 06/07/21 Unknown History [RenaPlex-D] carvedilol 25 mg PO BID 06/07/21 06/07/21 Unknown History lactulose [Generlac] 30 ml PO DAILY PRN 06/07/21 06/07/21 Unknown History nifedipine 90 mg PO DAILY 06/07/21 06/07/21 Unknown History Allergies Allergy/AdvReac Type Severity Reaction Status Date / Time strawberry Allergy Mild ALGY-Rash Unverified 06/07/21 16:24 Current Medications Generic Name Dose Route Start Last Admin Trade Name Freq PRN Reason Stop Dose Admin Acetaminophen 650 mg 06/07/21 16:38 06/08/21 01:09 Acetaminophen 325 Mg Tablet PO 650 mg Q6H PRN Administration Mild/Mod Pain Or Temp >/= 101 Carvedilol 25 mg 06/07/21 21:00 06/08/21 09:27 Carvedilol 25 Mg Tablet PO 25 mg BID VASHTI Administration Furosemide 80 mg 06/08/21 09:00 06/08/21 09:27 Furosemide 40 Mg Tablet PO 80 mg BID VASHTI Administration Hydralazine HCl 100 mg 06/07/21 21:00 06/08/21 09:27 Hydralazine 50 Mg Tablet PO 100 mg TID VASHTI Administration calcium gluconate 0.9% NaCL 1 gm in 50 mls @ 100 mls/hr 06/07/21 14:15 06/07/21 15:30 Calcium Gluconate 0.9% Nacl IV 06/08/21 14:44 Infused Q30MIN VASHTI Infusion Piperacillin Sod/Tazobactam 50 mls @ 12.5 mls/hr 06/08/21 02:00 06/08/21 05:10 Sod 3.375 gm/ Sodium Chloride IV Infused Q12H VASHTI Infusion Protocol Minoxidil 5 mg 06/07/21 21:00 06/08/21 09:29 Minoxidil 10 Mg Tablet PO 5 mg DAILY VASHTI Administration Nifedipine 90 mg 06/08/21 09:00 06/08/21 09:27 Nifedipine Er (24 Hr) 30 Mg Tablet PO 90 mg DAILY VASHTI Administration Ondansetron HCl 4 mg 06/07/21 16:38 06/07/21 18:28 Ondansetron 2 Mg/Ml Sdv 2 Ml IVP 4 mg Q8H PRN Administration vomiting, or N/V if npo Pantoprazole Sodium 40 mg 06/08/21 09:00 06/08/21 09:[address] 40 Mg Tablet PO 40 mg DAILY VASHTI Administration PFSH Acute PFSH: Medical History Alport syndrome Dialysis AV fistula malfunction HTN (hypertension) Surgical History Fistula Left forearm S/P hemodialysis catheter insertion Status post dialysis Family History Other ESRD (end stage renal disease) Social History Smoking and tobacco status: never smoked Alcohol intake: never Substance/Drug Use: former Other details last substance use: Marijuana. Denies any other. Denies IVDU. Lives independently: Yes Household members: spouse Marital status: Current occupational status: unemployed Vitals/I&O/Wt Last Vital Signs Temp 99.5 F 06/08/21 04:00 Pulse 81 06/08/21 05:51 Resp 15 06/08/21 04:15 BP 128/80 06/08/21 04:15 Pulse Ox 83 L 06/08/21 04:15 06/07/21 06/08/21 06/08/21 22:59 06:59 14:59 Intake Total 1220 / 1508 288 / 1508 Output Total Balance 1200 / 1488 288 / 1488 Weight last 48 hrs Weight 198 lb 6.4 oz Weight 217 lb 0.1 oz Weight 200 lb Physical Exam Narrative: EXAM NARRATIVE: HEENT: Normocephalic Eye: Sclera /conjunctiva normal Respiratory and chest: Bilateral clear breath sounds on auscultation Cardiovascular: Normal S1 and S2 heart sounds Abdomen: Soft to palpation Neurological: Oriented to place person and time Skin: Intact, no lesions appreciated on gross exam Data Micro: Micro: Microbiology 06/07/21 13:40 Blood Culture - Pr eliminary Blood Staphylococcus aureus 06/07/21 13:38 Blood Culture - Pr eliminary Blood Staphylococcus aureus 06/07/21 17:22 Blood Culture - Pr eliminary Blood SPECIMEN COLLEC VERA 06/07/21 17:22 Blood Culture - Pr eliminary Blood SPECIMEN COLLEC VERA A&P Assessment and plan (1) Hemodialysis catheter infection: 35-year-old male with positive blood cultures drawn from the dialysis catheter. Patient is currently hemodynamically stable and the catheter itself is functioning well and he is currently being dialyzed. He is due for another dialysis tomorrow. We will plan for removal of hemodialysis catheter under local anesthesia at the bedside tomorrow and then give him a line holiday for a few days prior to placement of a new catheter. Status: Acute Consult Attestations Medical Necessity Statement: As per attending physician Coding Level of Care Code Acute Automotive Engineering Technician for Glendy Sanchez Diagnoses Hemodialysis catheter infection T82.7XXA
[2021-06-08] MEDS: heparin, porcine 1,000 unit/mL INJ 10 mL 1000 UNIT IV (15:09)
[2021-06-08] MEDS: epoetin alfa (ESRD) 5,000 UNIT in SYRINGE 1 EACH 1 UNIT IVP (15:55)
--- NOTE | 2021-06-08 16:26 | USCV_ITS ---
Ann Link Age: 35 Gender: M : 1985 Exam Date: 06/08/2021 06:34 Ordering Phys: Rodolfo Regan MD Technologist: TREVON [place] [facility] [place]: Cardiomegaly, ascities BP: 128 / 80 HR: 83 Rhythm: Sinus Technical Quality: Adequate MEASUREMENTS (Male / Female) Normal Values 2D ECHO LV Diastolic Diameter PLAX 4.9 cm 4.2 - 5.9 / 3.9 - 5.3 cm LV Systolic Diameter PLAX 2.9 cm IVS Diastolic Thickness 1.6 cm 0.6 - 1.0 / 0.6 - 0.9 cm IVS Systolic Thickness 2.4 cm LVPW Diastolic Thickness 1.5 cm 0.6 - 1.0 / 0.6 - 0.9 cm LVPW Systolic Thickness 2.4 cm RV Chamber Size 5.7 cm LVOT Diameter 2.2 cm LV Ejection Fraction 2D Teich 70.8 % LV Ejection Fraction MOD 2C 53.4 % LV Ejection Fraction 2C AL 55.3 % LA Diameter 4.3 cm LA Width 4.3 cm LA Height 6.1 cm RA Width 5.0 cm RA Height 7.3 cm Aorta at Sinotubular Diameter 3.1 cm M-MODE Aortic Annulus Diameter 3.9 cm LA Ao Ratio MM 1.2 MV E Point Septal Separation 0.6 cm DOPPLER AV Peak Velocity 113.0 cm/s LVOT Peak Velocity 102.0 cm/s AV Area Cont Eq vti 3.5 cm squared AV Area Cont Eq pk 3.4 cm squared MV Area PHT 4.6 cm squared Mitral E to A Ratio 1.3 MV E' Velocity 45.5 cm/s Mitral E to MV E' Ratio 9.0 Mitral E to LV E' Lateral Ratio 8.1 Mitral E to LV E' Septal Ratio 10.1 TR Peak Velocity 282.4 cm/s TR Peak Gradient 31.9 mmHg TR Mean Velocity 219.0 cm/s TR Mean Gradient 21.0 mmHg TR Velocity Time Integral 93.1 cm TV Peak E Velocity 69.0 cm/s Right Atrial Pressure 8.0 mmHg Pulmonary Artery Systolic Pressu 39.9 mmHg PV Peak Velocity 38.0 cm/s RV Acceleration Time 0.1 s RV Ejection Time 0.2 s RV AcT/ET 0.4 FINDINGS Left Ventricle Normal left ventricular size and systolic function, EF 55 %. Moderate concentric left ventricular hypertrophy. Right Ventricle Mildly dilated right ventricle with a slightly diminished ejection fraction Right Atrium Moderately increased right atrial size. Left Atrium Mildly increased left atrial size. Mitral Valve Moderately severe eccentric mitral regurgitation Aortic Valve No gross abnormalities noted Tricuspid Valve Possibly severe eccentric tricuspid valve regurgitation. Pulmonic Valve Trace pulmonary valve regurgitation. Pericardium No pericardial effusion. Aorta Normal aortic annulus size. CONCLUSIONS Normal left ventricular size and systolic function, EF 55 %. Moderate concentric left ventricular hypertrophy. Mildly dilated right ventricle with a slightly diminished ejection fraction. Moderately increased right atrial size. Mildly increased left atrial size. Moderately severe eccentric mitral regurgitation. Possibly severe eccentric tricuspid valve regurgitation. Estimated pulmonary artery peak systolic pressure of 40 mmHg Trace pulmonary valve regurgitation. There are no intracardiac masses. There is no pericardial effusion. Findings are discussed with Dr. Tanner. Consider BALTAZAR to better evaluate the valves, if clinically indicated Dr Nathanael Yoder MD FACC (Electronically Signed) Final Date: 08 June 2021 10:12 S
[2021-06-08 17:52] LABS: Bacillus cereus group Not Detected (NOT DETECT); Bacillus subtillis group Not Detected (NOT DETECT); Corynebacterium Not Detected (NOT DETECT); Cutibacterium acnes (P.acnes) Not Detected (NOT DETECT); Enterococcus Not Detected (NOT DETECT); Enterococcus faecalis Not Detected (NOT DETECT); Enterococcus faecium Not Detected (NOT DETECT); Lactobacillus species Not Detected (NOT DETECT); Listeria Not Detected (NOT DETECT); Listeria monocytogenes Not Detected (NOT DETECT); Micrococcus Not Detected (NOT DETECT); Pan Candida Not Detected (NOT DETECT); Pan Gram-Negative Not Detected (NOT DETECT); Staphylococcus epidermidis Not Detected (NOT DETECT); Staphylococcus lugdunensis Not Detected (NOT DETECT); Staphylococcus species Detected (NOT DETECT); Streptococcus agalactiae Not Detected (NOT DETECT); Streptococcus anginosus group Not Detected (NOT DETECT); Streptococcus pneumoniae Not Detected (NOT DETECT); Streptococcus pyogenes Not Detected (NOT DETECT); Streptococcus species Not Detected (NOT DETECT); mecA Detected (NOT DETECT); mecC Not Detected (NOT DETECT)
--- NOTE | 2021-06-08 19:12 | PM.CONSULT ---
Providers/Reason For Consult Consulting Physician/Specialty*: Alex Yoder MD/cardiology Reason for Consult*: Patient with severe tricuspid rotation and moderately severe mitral regurgitation. Staph bacteremia. Consider BALTAZAR to rule out endocarditis Attending Physician: Rodolfo Regan Primary Care Provider: Kumar Carvajal MD History of Present Illness History of Present Illness Link Ann is a 35 year old male, with end-stage renal disease from Alport syndrome, on hemodialysis, is admitted to hospital with complaints of low-grade fever, abdominal pain, malaise and shortness of breath. He apparently missed 2 of his last dialysis sessions because of some family issues. He was found to have Staphylococcus bacteremia with the staff aureus growing in all the blood culture bottles. Also has features of dialysis catheter infection. BALTAZAR is requested for ruling out endocarditis and also evaluate the mitral and tricuspid regurgitation which was noticed by echocardiogram. Patient denies any history of endocarditis or any congenital heart disease. Never been told about any heart murmur in the past. Denies any nausea or vomiting. No hematemesis or melena. No history for gastric ulcers. No difficulty in swallowing. He continues to have abdominal discomfort. Currently afebrile. Had 2 sessions of hemodialysis since hospital admission. He is scheduled to have another dialysis in the morning. Also scheduled to have the dialysis catheter removed tomorrow. Patient had AV fistula placed in the past in the left hand before but apparently it stopped working. Review of Systems Narrative: CONSTITUTIONAL: Low-grade fever and malaise as discussed above EYES: No blurring of vision or other visual disturbances lately. ENT: No hoarseness of voice, auditory disturbances or sore throat. CARDIOVASCULAR: As mentioned above. RESPIRATORY: No significant cough. GASTROINTESTINAL: Abdominal pain/discomfort as mentioned above GENITOURINARY: No dysuria or hematuria. INTEGUMENTARY: No skin rashes or history of skin cancer. NEURO: No transient ischemic attacks or amaurosis. PSYCHIATRIC: No history of psychosis or major depression. HEMATOLOGIC: No bleeding disorders or significant anemia. ENDOCRINE: No history of polyuria or polydipsia. MUSCULOSKELETAL: No recent joint pain or swelling. ALLERGY/IMMUNOLOGY: As mentioned above. Medications/Allergies Home Medications Medication Instructions Recorded Confirmed Last Taken Type furosemide 80 mg PO BID 04/09/21 06/07/21 Unknown History hydralazine 100 mg PO TID 04/09/21 06/07/21 Unknown History minoxidil 5 mg PO DAILY 04/09/21 06/07/21 Unknown History pantoprazole 40 mg PO DAILY 04/09/21 06/07/21 Unknown History vit B,D-VI-naog-selen-vit D3-E 1 tab PO DAILY 04/09/21 06/07/21 Unknown History [RenaPlex-D] carvedilol 25 mg PO BID 06/07/21 06/07/21 Unknown History lactulose [Generlac] 30 ml PO DAILY PRN 06/07/21 06/07/21 Unknown History nifedipine 90 mg PO DAILY 06/07/21 06/07/21 Unknown History Allergies Allergy/AdvReac Type Severity Reaction Status Date / Time strawberry Allergy Mild ALGY-Rash Unverified 06/07/21 16:24 Current Medications Generic Name Dose Route Start Last Admin Trade Name Freq PRN Reason Stop Dose Admin Acetaminophen 650 mg 06/07/21 16:38 06/08/21 01:09 Acetaminophen 325 Mg Tablet PO 650 mg Q6H PRN Administration Mild/Mod Pain Or Temp >/= 101 Carvedilol 25 mg 06/07/21 21:00 06/08/21 18:08 Carvedilol 25 Mg Tablet PO 25 mg BID VASHTI Administration Furosemide 80 mg 06/08/21 09:00 06/08/21 18:08 Furosemide 40 Mg Tablet PO 80 mg BID VASHTI Administration Heparin Sodium (Porcine) 1,000 unit 06/09/21 08:10 06/08/21 15:09 Heparin, Porcine 1,000 Unit/Ml Inj 10 Ml IV 06/09/21 08:11 1,000 unit ONCE ONE Administration Hydralazine HCl 100 mg 06/07/21 21:00 06/08/21 15:57 Hydralazine 50 Mg Tablet PO 100 mg TID VASHTI Administration Piperacillin Sod/Tazobactam 50 mls @ 12.5 mls/hr 06/08/21 02:00 06/08/21 15:57 Sod 3.375 gm/ Sodium Chloride IV 12.5 mls/hr Q12H VASHTI Administration Protocol Epoetin Avila 5,000 unit/ N/A 0.25 mls @ 0 mls/hr 06/09/21 11:45 06/08/21 16:18 IVP Infused ONCE VASHTI Infusion As Directed Minoxidil 5 mg 06/07/21 21:00 06/08/21 09:29 Minoxidil 10 Mg Tablet PO 5 mg DAILY VASHTI Administration Nifedipine 90 mg 06/08/21 09:00 06/08/21 09:27 Nifedipine Er (24 Hr) 30 Mg Tablet PO 90 mg DAILY VASHTI Administration Ondansetron HCl 4 mg 06/07/21 16:38 06/07/21 18:28 Ondansetron 2 Mg/Ml Sdv 2 Ml IVP 4 mg Q8H PRN Administration vomiting, or N/V if npo Pantoprazole Sodium 40 mg 06/08/21 09:00 06/08/21 09:[address] 40 Mg Tablet PO 40 mg DAILY VASHTI Administration PFSH Acute PFSH: Medical History Alport syndrome Dialysis AV fistula malfunction HTN (hypertension) Surgical History Fistula Left forearm S/P hemodialysis catheter insertion Status post dialysis Family History Other ESRD (end stage renal disease) Social History Smoking and tobacco status: never smoked Alcohol intake: never Substance/Drug Use: former Other details last substance use: Marijuana. Denies any other. Denies IVDU. Lives independently: Yes Household members: spouse Marital status: Current occupational status: unemployed Vitals/I&O/Wt Last Vital Signs Temp 98.3 F 06/08/21 16:00 Pulse 81 06/08/21 16:00 Resp 10 L 06/08/21 16:00 BP 131/60 06/08/21 16:00 Pulse Ox 90 06/08/21 16:00 06/08/21 06/08/21 06/08/21 06:59 14:59 22:59 Intake Total 288 / 1508 360 / 360 240.25 / 600.25 Balance 288 / 1488 360 / 360 240.25 / 600.25 Weight last 48 hrs Weight 198 lb 6.4 oz Weight 217 lb 0.1 oz Weight 200 lb Physical Exam Narrative: EXAM NARRATIVE: GENERAL: The patient is alert and oriented times three. Not in any acute distress. HEENT: No significant pallor, icterus or lymphadenopathy. The pupils are symmetrical t. Oral cavity: There are no mucous membrane lesions. Funduscopic examination: The fundus is not visualized NECK: Trachea appears to be central. No masses noted. No JVD or thyromegaly appreciated. No carotid bruit. RESPIRATORY: Chest is symmetrical. No intercostals muscle retraction or any accessory muscle activation. There is no chest wall tenderness. Breath sounds are heard bilaterally. No rales or rhonchi heard. No evidence of any consolidation. BREASTS: Deferred. HEART: The PMI is in the 5th left intercostals space just inside the midclavicular line. No palpable precordial events. S1 and S2 are normal. No S3 or S4 heard. Systolic murmur of grade 4/6 on the left sternal border. No diastolic murmurs. ABDOMEN: Abdomen is diffusely tender with minimal guarding. Bowel sounds are heard but somewhat sluggish. : Deferred. RECTAL: Deferred. LYMPHATIC: No lymphadenopathy noted in the neck . EXTREMITIES: No edema or cyanosis. No clubbing. The peripheral pulses are palpable and fairly good volume and amplitude. He has a thrill in the left radial artery MUSCULOSKELETAL: No acute joint deformities or swelling. SKIN: Extensive tattoo markings in the extremities and also on the chest NEUROPSYCHIATRIC: The patient is alert and oriented x3. Appears to be in a good mood. He is hard of hearing Data Labs: Other Labs: Laboratory Last Values WBC 11.7 10^3/uL (4.0 -10.0) H 06/08/21 04:51 RBC 2.73 10^6/uL (4.1 -5.3) L 06/08/21 04:51 Hgb 7.3 g/dL (11.7-16 .6) L 06/08/21 04:51 Hct 23.8 % (42.0-52.0 ) L 06/08/21 04:51 MCV 87.2 fl (80-94) 06/08/21 04:51 MCH 26.7 pg (28.0-34. 0) L 06/08/21 04:51 MCHC 30.7 g/dL (30.0-3 6.0) 06/08/21 04:51 RDW 18.5 % (12.1-15.1 ) H 06/08/21 04:51 Plt Count 184 10^3/cmm (130 -400) 06/08/21 04:51 MPV 11.9 fL (7.4-10.4 ) H 06/08/21 04:51 Neut % (Auto) 87.4 % 06/08/21 04:51 Lymph % (Auto) 4.4 % 06/08/21 04:51 Saunders % (Auto) 6.1 % 06/08/21 04:51 Eos % (Auto) 0.3 % 06/08/21 04:51 Baso % (Auto) 0.6 % 06/08/21 04:51 Neut # (Auto) 10.26 10^3/uL (1. 8-7.7) H 06/08/21 04:51 Lymph # (Auto) 0.5 10^3/uL (0.8- 4.8) L 06/08/21 04:51 Saunders # (Auto) 0.7 10^3/uL (0.2- 0.9) 06/08/21 04:51 Eos # (Auto) 0.0 10^3/uL (0.0- 0.8) 06/08/21 04:51 Baso # (Auto) 0.1 10^3/uL (0.0- 0.1) 06/08/21 04:51 Nucleated RBC % (a uto) 0 % 06/08/21 04:51 Nucleated RBCs # 0.0 /100WBC 06/08/21 04:51 PT 21.10 SECONDS (12 .1-14.9) H 06/07/21 13:38 INR 1.78 (0.8-1.2) H 06/07/21 13:38 APTT 40.8 SECONDS (23. 9-36.7) H 06/07/21 13:38 Sodium 135 mmol/L (136-1 45) L 06/08/21 04:51 Potassium 6.4 mmol/L (3.5-5 .1) H 06/08/21 04:51 Chloride 94 mmol/L (98-107 ) L 06/08/21 04:51 Carbon Dioxide 23 mmol/L (22-29) 06/08/21 04:51 Anion Gap 24.4 (5-19) H 06/08/21 04:51 BUN 76 mg/dL (6-20) H 06/08/21 04:51 Creatinine 14.9 mg/dL (0.7-1 .2) H* 06/08/21 04:51 GFR Calculation 3.8 mL/min (90-13 0) L 06/08/21 04:51 Glucose 102 mg/dL (65-115 ) 06/08/21 04:51 Calculated Osmolal ity 303 mOsm/kg (285- 295) H 06/08/21 04:51 Lactate 1.0 mmol/L (0.5-2 .2) 06/07/21 13:38 Calcium 8.2 mg/dL (8.5-10 .5) L 06/08/21 04:51 Total Bilirubin 0.6 mg/dL (0.15-1 .2) 06/08/21 04:51 AST 14 U/L (0-40) 06/08/21 04:51 ALT 7 U/L (0-41) 06/08/21 04:51 Alkaline Phosphata se 80 IU/L (40-130) 06/08/21 04:51 Troponin T Baselin e 114 ng/L (0-15) H* 06/07/21 12:45 Troponin T 120 Min barb 101.4 ng/L (0-15) H 06/07/21 15:30 Delta Troponin T -12.6 ABS# (0-10) L 06/07/21 15:30 Troponin T Hi Sens 6Hr 109.5 ng/L (0-15) H 06/07/21 18:50 Troponin T Hi Sens 6Hr Delta -4.5 ng/L (0-12) L 06/07/21 18:50 NT-Pro-B Natriuret Pep > 38661 pg/mL (0- 125) H 06/07/21 12:45 Total Protein 6.0 g/dL (6.6-8.7 ) L 06/08/21 04:51 Albumin 3.4 g/dL (3.5-5.2 ) L 06/08/21 04:51 Globulin 2.6 g/dL (1.3-4.6 ) 06/08/21 04:51 Lipase 10 U/L (13-60) L 06/07/21 12:45 Urine Opiates Scre en Negative ng/mL (N egative) 06/07/21 19:25 Ur Barbiturates Sc reen Negative ng/mL (N egative) 06/07/21 19:25 Ur Phencyclidine S crn Negative ng/mL (N egative) 06/07/21 19:25 Ur Amphetamines Sc reen Negative ng/mL (N egative) 06/07/21 19:25 U Benzodiazepines Scrn Negative ng/mL (N egative) 06/07/21 19:25 Urine Cocaine Scre en Negative ng/mL (N egative) 06/07/21 19:25 U Marijuana (THC) Screen Negative ng/mL (N egative) 06/07/21 19:25 Ethyl Alcohol < 10 mg/dL (0-10) 06/07/21 12:45 Coronavirus 229E ( PCR) Not detected (NO T DETECT) 06/07/21 13:52 Hep Bs Antigen Non-reactive (No nreactive) 06/07/21 12:45 Hep Bs Antibody 129.8 (11.5-1000 ) 06/07/21 12:45 Hepatitis C Antibo dy Non-reactive (No nreactive) 06/07/21 12:45 SARS-CoV-2 (PCR) Not detected (NO T DETECT) 06/07/21 13:52 Micro: Micro: Microbiology 06/07/21 17:22 Blood Culture - Pr eliminary Blood NEGATIVE TO JESUS E 06/07/21 17:22 Blood Culture - Pr eliminary Blood Gram positive c occi 06/07/21 13:40 Blood Culture - Pr eliminary Blood Staphylococcus aureus 06/07/21 13:38 Blood Culture - Pr eliminary Blood Staphylococcus aureus Imaging^: Echo: My impression: Echocardiogram from today 06/08/2021 Normal left ventricular size and systolic function, EF 55 %. Moderate concentric left ventricular hypertrophy. Mildly dilated right ventricle with a slightly diminished ejection fraction. Moderately increased right atrial size. Mildly increased left atrial size. Moderately severe eccentric mitral regurgitation. Possibly severe eccentric tricuspid valve regurgitation. Estimated pulmonary artery peak systolic pressure of 40 mmHg Trace pulmonary valve regurgitation. There are no intracardiac masses. There is no pericardial effusion. Findings are discussed with Dr. Tanner. Consider BALTAZAR to better evaluate the valves, if clinically indicated A&P Assessment and plan (1) Staphylococcus aureus bacteremia: Most likely from the dialysis catheter infection. In view of the valvular lesions, possibility of endocarditis also is a strong consideration. This needs to be further evaluated. Status: Acute (2) Severe tricuspid regurgitation: Patient appears to have a severe eccentric tricuspid regurgitation. A primary valvular pathology is a consideration. This needs to be further evaluated Status: Acute (3) Moderate to severe mitral regurgitation: Patient has eccentric mitral regurgitation. A primary valvular pathology is a consideration. This needs to be further evaluated Status: Acute (4) Hemodialysis catheter infection: Status: Acute Qualifiers: Encounter type: subsequent encounter Qualified Code(s): T82.7XXD - Infection and inflammatory reaction due to other cardiac and vascular devices, implants and grafts, subsequent encounter (5) Dialysis patient, noncompliant: Patient is currently getting hemodialysis. Status: Acute Additional A&P Information To further evaluate the mitral and tricuspid regurgitation and also to rule out endocarditis, a transesophageal echocardiogram would be appropriate. This was discussed with the patient in detail with risk and benefits. Patient understood this well and consented to proceed. We may go ahead and schedule this procedure sometime tomorrow. Coding Level of Care Code Acute Wildlife Conservation Officer for g Fwd History Detailed Exam Detailed Medical Decision Making Moderate Complexity Diagnoses Staphylococcus aureus bacteremia R78.81; B95.61 Severe tricuspid regurgitation I07.1 Moderate to severe mitral regurgitation I34.0 Hemodialysis catheter infection T82.7XXD Encounter type: subsequent encounter Dialysis patient, noncompliant Z91.15
--- NOTE | 2021-06-08 19:13 | PC.HD ---
Pt rec'd with tunnelled cath open to air, no dressing. No obvious redness or drainage though pt said there was green drainage at home. Pt has not been to outpatient dialysis since 05/28/21. Pt developed chills and fever during treatment (reported having fever at home ASSEMBLER TUBING) which responded well to Tylenol given by TYPO MACHINE OPERATOR, Dr Heath aware of hypertension, tachycardia, and fever.
[2021-06-08] MEDS: heparin 5,000 unit/mL INJ 1 mL 5000 UNIT SUBCUT (19:51)
--- NOTE | 2021-06-08 20:08 | PC.NURSE ---
Bedside rounding with Dr. Yoder. Stated plan to perform BALTAZAR on 06/09/21 and will have time between 12:30-14:00 or after 16.:30 attempts to work around HD treatment and Dr. Worthington consult for dialysis catheter. This was passed onto to charge nurse, Sweta Marie RN.
[2021-06-08] MEDS: ondansetron 2 mg/ML SDV 2 mL 4 MG IVP (20:32)
[2021-06-08] MEDS: oxyCODONE-APAP 5-325 mg Tablet 1 TAB PO (22:22)
[2021-06-09] VITALS (91 sets, daily range): BP systolic 93–214; BP diastolic 47–114; PULSE 56–103; RESP 8–32; TEMP 36.9–37.1; O2SAT 76–100
[2021-06-09] MEDS: piperacillin-tazobactam 3.375 GM in sodium chloride 0.9% (plus) 50 ML IV (01:08)
[2021-06-09 03:53] LABS: Basophils % 0.5 %; Eosinophils # 0.1 10^3/uL (0.0-0.8); Eosinophils % 1.4 %; Hematocrit 24.6 % (42.0-52.0); Hemoglobin 7.3 g/dL (11.7-16.6); Lymphocytes # 0.6 10^3/uL (0.8-4.8); Lymphocytes % 7.5 %; Mean Corpuscular HGB Conc 29.7 g/dL (30.0-36.0); Mean Corpuscular Hemoglobin 26.6 pg (28.0-34.0); Mean Corpuscular Volume 89.8 fl (80-94); Mean Platelet Volume 11.9 fL (7.4-10.4); Monocytes # 0.7 10^3/uL (0.2-0.9); Monocytes % 8.6 %; Neutrophils % 81.4 %; Nucleated Red Blood Cells % 0 %; Platelet Count 194 10^3/cmm (130-400); Red Blood Count 2.74 10^6/uL (4.1-5.3); Red Cell Distribution Width 18.6 % (12.1-15.1); White Blood Count 7.9 10^3/uL (4.0-10.0)
[2021-06-09 04:23] LABS: Alanine Aminotransferase 8 U/L (0-41); Albumin Level 3.3 g/dL (3.5-5.2); Alkaline Phosphatase 76 IU/L (40-130); Anion Gap 22.1 (5-19); Aspartate Amino Transferase 14 U/L (0-40); Blood Urea Nitrogen 58 mg/dL (6-20); Calcium 8.1 mg/dL (8.5-10.5); Carbon Dioxide 24 mmol/L (22-29); Chloride 94 mmol/L (98-107); Globulin 2.4 g/dL (1.3-4.6); Glomerular Filtration Rate 5.7 mL/min (90-130); Glucose 120 mg/dL (65-115); Osmolality Calculated 297 mOsm/kg (285-295); Potassium 5.1 mmol/L (3.5-5.1); Sodium 135 mmol/L (136-145); Total Bilirubin 0.4 mg/dL (0.15-1.2); Total Protein 5.7 g/dL (6.6-8.7)
[2021-06-09] MEDS: sodium chloride 0.9% 500 ML 100 ML IV (08:20)
[2021-06-09 08:57] LABS: Ferritin 810 ng/mL (30-400); Iron 19 ug/dL (59-158); Percent Saturation 12.8 % (20-50); Total Iron Binding Capacity 148 mcg/dl; Unsaturated Iron Binding 129 ug/dL (112-347)
--- NOTE | 2021-06-09 09:30 | P.PN_ITS ---
Subjective Subjective: Interval history: states he is feeling better. still weak, less sob. nausea. no dunaway, cp, vomiting. c/o rt arm edema Medications: Reviewed: Yes Medication Review Details: Current Medications Acetaminophen (Acetaminophen 325 Mg Tablet) 650 mg PO Q6H PRN PRN Reason: Mild/Mod Pain Or Temp >/= 101 Last Admin: 06/08/21 19:51 Dose: 650 mg Documented by: Carvedilol (Carvedilol 25 Mg Tablet) 25 mg PO BID [facility] Last Admin: 06/08/21 18:08 Dose: 25 mg Documented by: Furosemide (Furosemide 40 Mg Tablet) 80 mg PO BID [facility] Last Admin: 06/08/21 18:08 Dose: 80 mg Documented by: Heparin Sodium (Porcine) (Heparin 5,000 Unit/Ml Inj 1 Ml) 5,000 unit SUBCUT Q12H [facility] Last Admin: 06/08/21 19:51 Dose: 5,000 unit Documented by: Hydralazine HCl (Hydralazine 50 Mg Tablet) 100 mg PO TID [facility] Last Admin: 06/08/21 20:04 Dose: 100 mg Documented by: Sodium Chloride (Sodium Chloride 0.9%) 1,000 mls @ 0 mls/hr IV .Q0M PRN PRN Reason: hypotension or symptomatic Piperacillin Sod/Tazobactam (Sod 3.375 gm/ Sodium Chloride) 50 mls @ 12.5 mls/hr IV Q12H [facility]; Protocol Last Infusion: 06/09/21 05:25 Dose: Infused Documented by: Vancomycin HCl 1,000 mg/ (Sodium Chloride) 250 mls @ 250 mls/hr IV Q48H [facility] Epoetin Avila 5,000 unit/ N/A 0.25 mls @ 0 mls/hr IVP ONCE [facility] Last Infusion: 06/08/21 16:18 Dose: Infused Documented by: Minoxidil (Minoxidil 10 Mg Tablet) 5 mg PO DAILY [facility] Last Admin: 06/08/21 09:29 Dose: 5 mg Documented by: Nifedipine (Nifedipine Er (24 Hr) 30 Mg Tablet) 90 mg PO DAILY [facility] Last Admin: 06/08/21 09:27 Dose: 90 mg Documented by: Ondansetron HCl (Ondansetron 2 Mg/Ml Sdv 2 Ml) 4 mg IVP Q8H PRN PRN Reason: vomiting, or N/V if npo Last Admin: 06/08/21 20:32 Dose: 4 mg Documented by: Oxycodone/Acetaminophen (Oxycodone-Apap 5-325 Mg Tablet) 1 tab PO Q4H PRN PRN Reason: MODERATE PAIN Last Admin: 06/08/21 22:22 Dose: 1 tab Documented by: Pantoprazole Sodium (Pantoprazole Dr 40 Mg Tablet) 40 mg PO DAILY [facility] Last Admin: 06/08/21 09:27 Dose: 40 mg Documented by: Vitals/I&O/Wt Last Vital Signs Temp 98.5 F 06/09/21 04:00 Pulse 82 06/09/21 05:48 Resp 15 06/09/21 04:15 BP 124/67 06/09/21 05:30 Pulse Ox 85 L 06/09/21 05:30 06/08/21 06/09/21 06/09/21 22:59 06:59 14:59 Intake Total 790.25 / 1150.25 50 / 1200.25 Output Total 3589 / 3589 0 / 3589 Balance -2798.75 / -2438.75 50 / -2388.75 Weight last 48 hrs Weight 90.492 kg Weight 87.7 kg Weight 89.993 kg Weight 89.7 kg Weight 98.432 kg Weight 90.718 kg Physical Exam Narrative: EXAM NARRATIVE: in bed in icu, vs noted heent- nc/at, eomi, anicteric neck supple lung cta b/l heart reg, +XIMENA abd soft, nt, nd, + bs ext RUE edema LUE AVF neuro- a,a, o x 3 Data : 06/09/21 03:25 06/09/21 03:25 Micro: Microbiology 06/07/21 17:22 Blood Culture - Preliminary Blood Gram positive cocci 06/07/21 17:22 Blood Culture - Preliminary Blood NEGATIVE TO DATE 06/07/21 13:40 Blood Culture - Preliminary Blood Staphylococcus aureus 06/07/21 13:38 Blood Culture - Preliminary Blood Staphylococcus aureus A&P Additional A&P Information Seen via telehealth with assistance of RN at bedside 1. ESRD - repeat HD today- 2 k bth -phos binders 2. staph aureus bacteremia- renal dose abx -keep vanco trough under 20 -will remove dialysis catheter todat BALTAZAR this am 3. Anemia, Hb lower. epogen at dialysis -no iv iron w/ bacteremia 4. MR/ TR per cardiology 5. Hypertension 6. BASSAM per medicine seen and examined w/ RN- telehealth visit time spent . 30 min discussed w/ cardiology, AS400 ANALYST and HD RN Attestations Medical Necessity Statement*: bacteremia Time Spent in Patient Care: 16 - 35 minutes (>than 50% of time spent in counselling and/or direct pt care on unit) . Coding Level of Care Code Acute Compactor Driver for Glend[facility] Sanchez
--- NOTE | 2021-06-09 09:34 | W.PM.OPSUD ---
Surgery/Procedure H&P Update DATE OF PROCEDURE: June 09, 2021 DATE H&P PERFORMED: 06/08/21 H&P UPDATE INFORMATION: I have reviewed H&P completed within last 30 days, I have examined patient prior to procedure and No changes to prior documentation PREOP DIAGNOSIS: ModeratelySevere eccentric MR and severe eccentric TR PRIMARY INDICATION FOR PROCEDURE: Gram-positive cocci in all the blood culture bottles. Eccentric mitral and tricuspid regurgitations. Rule out endocarditis PLANNED PROCEDURE: BALTAZAR
--- NOTE | 2021-06-09 09:39 | PM.PN ---
Subjective Subjective: Interval history: Patient denies any chest pain or chest tightness. No unusual shortness of breath. The vital signs are stable. He remains afebrile. He is on IV Vanco and Zosyn. No new symptoms. Underwent a BALTAZAR today. Was found to have small vegetations both on the mitral and tricuspid leaflets. For the details, please see the separate report Medications: Reviewed: Yes Medication Review Details: Current Medications Acetaminophen (Acetaminophen 325 Mg Tablet) 650 mg PO Q6H PRN PRN Reason: Mild/Mod Pain Or Temp >/= 101 Last Admin: 06/08/21 19:51 Dose: 650 mg Documented by: Carvedilol (Carvedilol 25 Mg Tablet) 25 mg PO BID [facility] Last Admin: 06/08/21 18:08 Dose: 25 mg Documented by: Furosemide (Furosemide 40 Mg Tablet) 80 mg PO BID [facility] Last Admin: 06/08/21 18:08 Dose: 80 mg Documented by: Heparin Sodium (Porcine) (Heparin 5,000 Unit/Ml Inj 1 Ml) 5,000 unit SUBCUT Q12H [facility] Last Admin: 06/08/21 19:51 Dose: 5,000 unit Documented by: Hydralazine HCl (Hydralazine 50 Mg Tablet) 100 mg PO TID [facility] Last Admin: 06/08/21 20:04 Dose: 100 mg Documented by: Sodium Chloride (Sodium Chloride 0.9%) 1,000 mls @ 0 mls/hr IV .Q0M PRN PRN Reason: hypotension or symptomatic Piperacillin Sod/Tazobactam (Sod 3.375 gm/ Sodium Chloride) 50 mls @ 12.5 mls/hr IV Q12H [facility]; Protocol Last Infusion: 06/09/21 05:25 Dose: Infused Documented by: Vancomycin HCl 1,000 mg/ (Sodium Chloride) 250 mls @ 250 mls/hr IV Q48H [facility] Epoetin Avila 5,000 unit/ N/A 0.25 mls @ 0 mls/hr IVP ONCE [facility] Last Infusion: 06/08/21 16:18 Dose: Infused Documented by: Minoxidil (Minoxidil 10 Mg Tablet) 5 mg PO DAILY [facility] Last Admin: 06/08/21 09:29 Dose: 5 mg Documented by: Nifedipine (Nifedipine Er (24 Hr) 30 Mg Tablet) 90 mg PO DAILY [facility] Last Admin: 06/08/21 09:27 Dose: 90 mg Documented by: Ondansetron HCl (Ondansetron 2 Mg/Ml Sdv 2 Ml) 4 mg IVP Q8H PRN PRN Reason: vomiting, or N/V if npo Last Admin: 06/08/21 20:32 Dose: 4 mg Documented by: Oxycodone/Acetaminophen (Oxycodone-Apap 5-325 Mg Tablet) 1 tab PO Q4H PRN PRN Reason: MODERATE PAIN Last Admin: 06/08/21 22:22 Dose: 1 tab Documented by: Pantoprazole Sodium (Pantoprazole Dr 40 Mg Tablet) 40 mg PO DAILY [facility] Last Admin: 06/08/21 09:27 Dose: 40 mg Documented by: Vitals/I&O/Wt Last Vital Signs Temp 98.5 F 06/09/21 04:00 Pulse 82 06/09/21 05:48 Resp 15 06/09/21 04:15 BP 124/67 06/09/21 05:30 Pulse Ox 85 L 06/09/21 05:30 06/08/21 06/09/21 06/09/21 22:59 06:59 14:59 Intake Total 790.25 / 1150.25 50 / 1200.25 Output Total 3589 / 3589 0 / 3589 Balance -2798.75 / -2438.75 50 / -2388.75 Weight last 48 hrs Weight 199 lb 8 oz Weight 193 lb 5.526 oz Weight 198 lb 6.4 oz Weight 197 lb 12.074 oz Weight 217 lb 0.1 oz Weight 200 lb Physical Exam Narrative: EXAM NARRATIVE: GENERAL: The patient is alert and oriented times three. Not in any acute distress. HEENT: No significant pallor, icterus or lymphadenopathy. The pupils are symmetrical t. Oral cavity: There are no mucous membrane lesions. NECK: Trachea appears to be central. No masses noted. No JVD or thyromegaly appreciated. No carotid bruit. RESPIRATORY: Chest is symmetrical. No intercostals muscle retraction or any accessory muscle activation. There is no chest wall tenderness. Breath sounds are heard bilaterally. No rales or rhonchi heard. No evidence of any consolidation. BREASTS: Deferred. HEART: The PMI is in the 5th left intercostals space just inside the midclavicular line. No palpable precordial events. S1 and S2 are normal. No S3 or S4 heard. Systolic murmur of grade 4/6 on the left sternal border. No diastolic murmurs. ABDOMEN: Abdomen is diffusely tender with minimal guarding. Bowel sounds are heard but somewhat sluggish. : Deferred. RECTAL: Deferred. LYMPHATIC: No lymphadenopathy noted in the neck . EXTREMITIES: No edema or cyanosis. No clubbing. The peripheral pulses are palpable and fairly good volume and amplitude. He has a thrill in the left radial artery MUSCULOSKELETAL: No acute joint deformities or swelling. SKIN: Extensive tattoo markings in the extremities and also on the chest NEUROPSYCHIATRIC: The patient is alert and oriented x3. Appears to be in a good mood. He is hard of hearing Data : 06/09/21 03:25 06/09/21 03:25 Micro: Microbiology 06/07/21 17:22 Blood Culture - Preliminary Blood Gram positive cocci 06/07/21 17:22 Blood Culture - Preliminary Blood NEGATIVE TO DATE 06/07/21 13:40 Blood Culture - Preliminary Blood Staphylococcus aureus 06/07/21 13:38 Blood Culture - Preliminary Blood Staphylococcus aureus A&P Assessment and plan (1) Staphylococcus aureus bacteremia: Patient has dialysis catheter infection. The lesions on the mitral and tricuspid valves appears to be vegetations. Status: Acute (2) Severe tricuspid regurgitation: The BALTAZAR revealed moderate to moderately severe tricuspid regurgitation. Status: Acute (3) Moderate to severe mitral regurgitation: Patient has eccentric mitral regurgitation. Appears to be severe from the BALTAZAR. The regurgitant fraction needs to be calculated. Status: Acute (4) Hemodialysis catheter infection: Patient is planning to have the catheter removal today Status: Acute Qualifiers: Encounter type: subsequent encounter Qualified Code(s): T82.7XXD - Infection and inflammatory reaction due to other cardiac and vascular devices, implants and grafts, subsequent encounter (5) Dialysis patient, noncompliant: Patient is currently getting hemodialysis. Status: Acute Additional A&P Information Other problems are #1. Anemia of chronic illness. #2. Hyperkalemia 3. History of IV drug abuse Continue on the current antibiotics. The antibiotic sensitivities pending. Patient requires 6 weeks of antibiotic treatment Attestations Medical Necessity Statement*: Disposition as per the primary care. Coding Level of Care Code Acute Certification Engineer for [facility] Fwd History Detailed Exam Detailed Medical Decision Making Moderate Complexity Diagnoses Staphylococcus aureus bacteremia R78.81; B95.61 Severe tricuspid regurgitation I07.1 Moderate to severe mitral regurgitation I34.0 Hemodialysis catheter infection T82.7XXD Encounter type: subsequent encounter Dialysis patient, noncompliant Z91.15
--- NOTE | 2021-06-09 09:44 | USR_ITS ---
PROCEDURE INFORMATION: Exam: US Duplex Lower Extremity Veins, Bilateral Exam date and time: 06/09/2021 9:44 AM Age: 35 years old Clinical indication: Edema, localized; Lower extremity, right and lower extremity, left; Patient HX: Patient was admitted to the icu for cardiogenic shock with elevated k+ >7.0; Additional info: Bilateral lower extremity edema TECHNIQUE: Imaging protocol: Real-time duplex ultrasound of the extremities with 2-D lucero scale, color Doppler flow and spectral waveform analysis with image documentation. Complete exam focused on the bilateral lower extremity veins. COMPARISON: CT abdomen pelvis wo con [id number] 06/07/2021 1:29 PM FINDINGS: Right deep veins: Unremarkable. The common femoral, femoral, proximal profunda femoral and popliteal veins are patent without thrombus. Normal Doppler waveforms. Normal compressibility and/or augmentation response. Right superficial veins: Saphenofemoral junction is patent without thrombus. Left deep veins: Unremarkable. The common femoral, femoral, proximal profunda femoral and popliteal veins are patent without thrombus. Normal Doppler waveforms. Normal compressibility and/or augmentation response. Left superficial veins: Saphenofemoral junction is patent without thrombus. Soft tissues: 1.6 x 0.8 x 3.6 cm left popliteal fossa cyst. US/[place] [id number] IMPRESSION: 1. No evidence for deep vein thrombosis in the right or left lower extremities.
--- NOTE | 2021-06-09 10:07 | PC.CHAP ---
Pastoral Care Encounter/Spiritual Assessment Type of Contact [] Declined industrial technology teacher visit [] Patient/Family/Request visit [] Outpatient visit [] Follow-up visit [] Physician referral [] Code/Alert [x] Routine visit [] Staff referral [] Actively dying [] Patient sleeping [] Family support [] [] Out of room [] Palliative care [] [x] Receiving care in room [] Pre-surgical visit [] Trauma [] Long length of stay [x] ICU visit [] Other: Relational/Emotional Strength [] Patient feels connected with others/family/visitors/staff [] Distress [] Loneliness/isolation [] Abandonment Spirituality of Patient [] Person of Ilda [] Attends Baptism of their Ilda [] Believes in Prayer [] Reads Bible or Yarsanism materials [] There are Spiritual issues to be addressed Programmer Or Analyst Interventions [x] Prayer [] Active listening [] Non-anxious presence [] Spiritual/emotional support [] Crisis/trauma care [] Spiritual counseling [] Bereavement support [] Provided bereavement packet [] Provided Bible/devotional materials [] Provided toy/stuffed animal, coloring book to patient or family member [] Provided Communion [] Anointing/[place] [] Salvation [x] Completed spiritual assessment [] Other: Impact on Illness or Injury [] Angry [] Fearful [] Anxious [] Often cries [] Exhaustion [] Unable to work [] Unable to attend mandaen [] Unable to walk/stand [] Unable to read [] Unable to drive [] Unable to eat/drink [] Unable to sleep [] Unable to be with family [] Patient intubated [] Other: Summary Time spent with patient
[2021-06-09] MEDS: FUROsemide 10 mg/mL SDV 10mL 60 MG IVP ×2 (10:21→21:00)
[2021-06-09] MEDS: hyDRALAzine 50 mg Tablet 100 MG PO ×3 (10:22→20:54)
[2021-06-09] MEDS: heparin 5,000 unit/mL INJ 1 mL 5000 UNIT SUBCUT ×2 (10:22→20:54)
[2021-06-09] MEDS: carvedilol 12.5 mg Tablet PO ×2 (10:24→20:54)
[2021-06-09] MEDS: pantoprazole DR 40 mg Tablet PO (10:24)
[2021-06-09] MEDS: minoxidil 10 mg Tablet 5 MG PO (10:29)
--- NOTE | 2021-06-09 10:47 | P.ANESASSM_ITS ---
Pre-Anesthetic Assessment Pre-Anesthetic Assessment: Height/Weight: Height 1.85 m Weight 90.492 kg Temp Pulse Resp BP Pulse Ox 98.5 F 82 15 124/67 85 L 06/09/21 04:00 06/09/21 05:48 06/09/21 04:15 06/09/21 05:30 06/09/21 05:30 Preop Diagnosis: ModeratelySevere eccentric MR and severe eccentric TR Was Beta Rupali taken within 24 hours: N/A Was Clonidine taken within 24 hours: N/A Social: Social History: Tobacco and No alcohol Exam: Pre-Anes Outpt Exam: alert, oriented x 3, clear to auscultation bilaterally and regular rate & rhythm Airway: Submandibular: WNL Cervical ROM: WNL MP: 2 Dentition: Chipped Pulmonary: Pulmonary: COPD CV/HEM: CV/HEM: HTN and Murmur Comments: : : Chronic renal failure Anesthetic Plan: ASA status: 3 Anesthesia: MAC Risk of > 500 ml blood loss (7ml/kg in children): No Medications/Allergies Current Medications: Current Medications Generic Name Dose Route Start Last Admin Trade Name Freq PRN Reason Stop Dose Admin Acetaminophen 650 mg 06/07/21 16:38 06/08/21 19:51 Acetaminophen 32 5 Mg Tablet PO 650 mg Q6H PRN Administration Mild/Mod Pain Or Temp >/= 101 Carvedilol 12.5 mg 06/09/21 10:00 06/09/21 10:24 Carvedilol 12.5 Mg Tablet PO 12.5 mg BID@0900,2100 VASHTI Administration Furosemide 60 mg 06/09/21 10:00 06/09/21 10:21 Furosemide 10 Mg /Ml Sdv 10ml IVP 60 mg Q12H VASHTI Administration Heparin Sodium (Po rcine) 5,000 unit 06/08/21 20:00 06/09/21 10:22 Heparin 5,000 Un it/Ml Inj 1 Ml SUBCUT 5,000 unit Q12H VASHTI Administration Hydralazine HCl 100 mg 06/07/21 21:00 06/09/21 10:22 Hydralazine 50 M g Tablet PO 100 mg TID VASHTI Administration Piperacillin Sod/T azobactam 50 mls @ 12.5 mls /hr 06/08/21 02:00 06/09/21 05:25 Sod 3.375 gm/ So dium Chloride IV Infused Q12H VASHTI Infusion Protocol Epoetin Avila 5,000 unit/ N/A 0.25 mls @ 0 mls/ hr 06/09/21 11:45 06/08/21 16:18 IVP Infused ONCE VASHTI Infusion As Directed Minoxidil 5 mg 06/07/21 21:00 06/09/21 10:29 Minoxidil 10 Mg Tablet PO 5 mg DAILY VASHTI Administration Nifedipine 90 mg 06/08/21 09:00 06/08/21 09:27 Nifedipine Er (2 4 Hr) 30 Mg Tablet PO 90 mg DAILY VASHTI Administration Ondansetron HCl 4 mg 06/07/21 16:38 06/08/21 20:32 Ondansetron 2 Mg /Ml Sdv 2 Ml IVP 4 mg Q8H PRN Administration vomiting, or N/V if npo Oxycodone/Acetamin ophen 1 tab 06/08/21 21:08 06/08/21 22:22 Oxycodone-Apap 5 -325 Mg Tablet PO 1 tab Q4H PRN Administration MODERATE PAIN Pantoprazole Sodiu m 40 mg 06/08/21 09:00 06/09/21 10:[address] 40 Mg Tablet PO 40 mg DAILY VASHTI Administration PFSH Anesthesia PFSH: Medical History Alport syndrome Dialysis AV fistula malfunction HTN (hypertension) Surgical History Fistula Left forearm S/P hemodialysis catheter insertion Status post dialysis Family History Other ESRD (end stage renal disease) Social History Smoking and tobacco status: never smoked Alcohol intake: never Substance/Drug Use: former Other details last substance use: Marijuana. Denies any other. Denies IVDU. Lives independently: Yes Household members: spouse Marital status: Current occupational status: unemployed Data Anesthesia CBC & Chem 7: 06/09/21 03:25 06/09/21 03:25 Other Labs: Laboratory Results - last 48 hr 06/07/21 06/07/21 06/07/21 12:45 12:45 12:45 WBC 17.1 H RBC 2.91 L Hgb 8.0 L Hct 25.3 L MCV 86.9 MCH 27.5 L MCHC 31.6 RDW 18.6 H Plt Count 190 MPV 12.0 H Neut % (Auto) 91.0 Lymph % (Auto) 1.6 Reeves % (Auto) 4.0 Eos % (Auto) 0.0 Baso % (Auto) 0.4 Neut # (Auto) 15.59 H Lymph # (Auto) 0.3 L Reeves # (Auto) 0.7 Eos # (Auto) 0.0 Baso # (Auto) 0.1 Nucleated RBC % (auto) 0 Nucleated RBCs # 0.0 PT INR APTT Sodium 134 L Potassium 7.6 H* Chloride 93 L Carbon Dioxide 14 L Anion Gap 34.6 H BUN 106 H* Creatinine 19.8 H* GFR Calculation 2.7 L Glucose 80 Calculated Osmolality 310 H Lactate Calcium 9.6 Phosphorus Iron TIBC % Saturation Unsat Iron Binding Ferritin Total Bilirubin 0.7 AST 13 ALT < 5 Alkaline Phosphatase 66 Troponin T Baseline 114 H* Troponin T 120 Minute Delta Troponin T Troponin T Hi Sens 6Hr Troponin T Hi Sens 6Hr Delta NT-Pro-B Natriuret Pep > 02838 H Total Protein 6.7 Albumin 3.9 Globulin 2.8 Lipase 10 L Urine Opiates Screen Ur Barbiturates Screen Ur Phencyclidine Scrn Ur Amphetamines Screen U Benzodiazepines Scrn Urine Cocaine Screen U Marijuana (THC) Screen Ethyl Alcohol < 10 Coronavirus 229E (PCR) Hep Bs Antigen Hep Bs Antibody Hepatitis C Antibody SARS-CoV-2 (PCR) 06/07/21 06/07/21 06/07/21 12:45 13:38 13:38 WBC RBC Hgb Hct MCV MCH MCHC RDW Plt Count MPV Neut % (Auto) Lymph % (Auto) Reeves % (Auto) Eos % (Auto) Baso % (Auto) Neut # (Auto) Lymph # (Auto) Reeves # (Auto) Eos # (Auto) Baso # (Auto) Nucleated RBC % (auto) Nucleated RBCs # PT 21.10 H INR 1.78 H APTT 40.8 H Sodium Potassium Chloride Carbon Dioxide Anion Gap BUN Creatinine GFR Calculation Glucose Calculated Osmolality Lactate 1.0 Calcium Phosphorus Iron TIBC % Saturation Unsat Iron Binding Ferritin Total Bilirubin AST ALT Alkaline Phosphatase Troponin T Baseline Troponin T 120 Minute Delta Troponin T Troponin T Hi Sens 6Hr Troponin T Hi Sens 6Hr Delta NT-Pro-B Natriuret Pep Total Protein Albumin Globulin Lipase Urine Opiates Screen Ur Barbiturates Screen Ur Phencyclidine Scrn Ur Amphetamines Screen U Benzodiazepines Scrn Urine Cocaine Screen U Marijuana (THC) Screen Ethyl Alcohol Coronavirus 229E (PCR) Hep Bs Antigen Non-reactive Hep Bs Antibody 129.8 Hepatitis C Antibody Non-reactive SARS-CoV-2 (PCR) 06/07/21 06/07/21 06/07/21 13:52 15:30 18:50 WBC RBC Hgb Hct MCV MCH MCHC RDW Plt Count MPV Neut % (Auto) Lymph % (Auto) Reeves % (Auto) Eos % (Auto) Baso % (Auto) Neut # (Auto) Lymph # (Auto) Reeves # (Auto) Eos # (Auto) Baso # (Auto) Nucleated RBC % (auto) Nucleated RBCs # PT INR APTT Sodium Potassium Chloride Carbon Dioxide Anion Gap BUN Creatinine GFR Calculation Glucose Calculated Osmolality Lactate Calcium Phosphorus Iron TIBC % Saturation Unsat Iron Binding Ferritin Total Bilirubin AST ALT Alkaline Phosphatase Troponin T Baseline Troponin T 120 Minute 101.4 H Delta Troponin T -12.6 L Troponin T Hi Sens 6Hr 109.5 H Troponin T Hi Sens 6Hr Delta -4.5 L NT-Pro-B Natriuret Pep Total Protein Albumin Globulin Lipase Urine Opiates Screen Ur Barbiturates Screen Ur Phencyclidine Scrn Ur Amphetamines Screen U Benzodiazepines Scrn Urine Cocaine Screen U Marijuana (THC) Screen Ethyl Alcohol Coronavirus 229E (PCR) Not detected Hep Bs Antigen Hep Bs Antibody Hepatitis C Antibody SARS-CoV-2 (PCR) Not detected 06/07/21 06/08/21 06/08/21 19:25 04:51 04:51 WBC 11.7 H RBC 2.73 L Hgb 7.3 L Hct 23.8 L MCV 87.2 MCH 26.7 L MCHC 30.7 RDW 18.5 H Plt Count 184 MPV 11.9 H Neut % (Auto) 87.4 Lymph % (Auto) 4.4 Reeves % (Auto) 6.1 Eos % (Auto) 0.3 Baso % (Auto) 0.6 Neut # (Auto) 10.26 H Lymph # (Auto) 0.5 L Reeves # (Auto) 0.7 Eos # (Auto) 0.0 Baso # (Auto) 0.1 Nucleated RBC % (auto) 0 Nucleated RBCs # 0.0 PT INR APTT Sodium 135 L Potassium 6.4 H Chloride 94 L Carbon Dioxide 23 Anion Gap 24.4 H BUN 76 H Creatinine 14.9 H* GFR Calculation 3.8 L Glucose 102 Calculated Osmolality 303 H Lactate Calcium 8.2 L Phosphorus Iron TIBC % Saturation Unsat Iron Binding Ferritin Total Bilirubin 0.6 AST 14 ALT 7 Alkaline Phosphatase 80 Troponin T Baseline Troponin T 120 Minute Delta Troponin T Troponin T Hi Sens 6Hr Troponin T Hi Sens 6Hr Delta NT-Pro-B Natriuret Pep Total Protein 6.0 L Albumin 3.4 L Globulin 2.6 Lipase Urine Opiates Screen Negative Ur Barbiturates Screen Negative Ur Phencyclidine Scrn Negative Ur Amphetamines Screen Negative U Benzodiazepines Scrn Negative Urine Cocaine Screen Negative U Marijuana (THC) Screen Negative Ethyl Alcohol Coronavirus 229E (PCR) Hep Bs Antigen Hep Bs Antibody Hepatitis C Antibody SARS-CoV-2 (PCR) 06/09/21 06/09/21 06/09/21 03:25 03:25 08:24 WBC 7.9 RBC 2.74 L Hgb 7.3 L Hct 24.6 L MCV 89.8 MCH 26.6 L MCHC 29.7 L RDW 18.6 H Plt Count 194 MPV 11.9 H Neut % (Auto) 81.4 Lymph % (Auto) 7.5 Reeves % (Auto) 8.6 Eos % (Auto) 1.4 Baso % (Auto) 0.5 Neut # (Auto) 6.40 Lymph # (Auto) 0.6 L Reeves # (Auto) 0.7 Eos # (Auto) 0.1 Baso # (Auto) 0.0 Nucleated RBC % (auto) 0 Nucleated RBCs # 0.0 PT INR APTT Sodium 135 L Potassium 5.1 Chloride 94 L Carbon Dioxide 24 Anion Gap 22.1 H BUN 58 H Creatinine 10.4 H* GFR Calculation 5.7 L Glucose 120 H Calculated Osmolality 297 H Lactate Calcium 8.1 L Phosphorus 6.0 H Iron 19 L TIBC 148 % Saturation 12.8 L Unsat Iron Binding 129 Ferritin 810 H Total Bilirubin 0.4 AST 14 ALT 8 Alkaline Phosphatase 76 Troponin T Baseline Troponin T 120 Minute Delta Troponin T Troponin T Hi Sens 6Hr Troponin T Hi Sens 6Hr Delta NT-Pro-B Natriuret Pep Total Protein 5.7 L Albumin 3.3 L Globulin 2.4 Lipase Urine Opiates Screen Ur Barbiturates Screen Ur Phencyclidine Scrn Ur Amphetamines Screen U Benzodiazepines Scrn Urine Cocaine Screen U Marijuana (THC) Screen Ethyl Alcohol Coronavirus 229E (PCR) Hep Bs Antigen Hep Bs Antibody Hepatitis C Antibody SARS-CoV-2 (PCR) 06/09/21 08:24 WBC RBC Hgb Hct MCV MCH MCHC RDW Plt Count MPV Neut % (Auto) Lymph % (Auto) Reeves % (Auto) Eos % (Auto) Baso % (Auto) Neut # (Auto) Lymph # (Auto) Reeves # (Auto) Eos # (Auto) Baso # (Auto) Nucleated RBC % (auto) Nucleated RBCs # PT INR APTT Sodium Potassium Chloride Carbon Dioxide Anion Gap BUN Creatinine GFR Calculation Glucose Calculated Osmolality Lactate Calcium Phosphorus Iron Cancelled TIBC % Saturation Unsat Iron Binding Ferritin Total Bilirubin AST ALT Alkaline Phosphatase Troponin T Baseline Troponin T 120 Minute Delta Troponin T Troponin T Hi Sens 6Hr Troponin T Hi Sens 6Hr Delta NT-Pro-B Natriuret Pep Total Protein Albumin Globulin Lipase Urine Opiates Screen Ur Barbiturates Screen Ur Phencyclidine Scrn Ur Amphetamines Screen U Benzodiazepines Scrn Urine Cocaine Screen U Marijuana (THC) Screen Ethyl Alcohol Coronavirus 229E (PCR) Hep Bs Antigen Hep Bs Antibody Hepatitis C Antibody SARS-CoV-2 (PCR) Micro: Microbiology 06/09/21 10:25 Blood Culture - Preliminary Blood SPECIMEN COLLECTED 06/09/21 10:28 Blood Culture - Preliminary Blood SPECIMEN COLLECTED 06/07/21 17:22 Blood Culture - Preliminary Blood Gram positive cocci 06/07/21 17:22 Blood Culture - Preliminary Blood NEGATIVE TO DATE 06/07/21 13:40 Blood Culture - Preliminary Blood Staphylococcus aureus 06/07/21 13:38 Blood Culture - Preliminary Blood Staphylococcus aureus Cardiac Studies: Echocardiogram 06/08/21
--- NOTE | 2021-06-09 10:48 | ANE.PACU2 ---
Inpatient post-anesthesia follow up: Airway intact: Yes Vital signs: Temperature 98.5 F Pulse Rate 82 Respiratory Rate 15 Blood Pressure 124/67 Pulse Oximetry 85 Oxygen Delivery Me thod Nasal Cannula Oxygen Flow Rate 5 Fraction of Inspir ed Oxygen Hydration adequate: Yes Nausea and vomiting: No Pain level: 1 Mental status: Baseline
--- NOTE | 2021-06-09 10:53 | USR_ITS ---
PROCEDURE INFORMATION: Exam: US Duplex Left Upper Extremity Veins, Limited Exam date and time: 06/09/2021 10:53 AM Age: 35 years old Clinical indication: Other: Patient has a thrill and throbing lump at the left wrist, laterally. He has been on dialysis for aout 1 yr, and a left radial artery to left radial vein a-v fistula dialysis graft was created at that time. According to the patient's nurse, this reported a-v fistula has been used int he past for dialysis, but recently, the dialysis team has stopped using it, and is using a right upper chest port, instead. We are asked to evaluate the reported a-v fistula for patency. ; Prior surgery; Surgery date: 6+ months; Surgery type: Patient has a thrill and throbing lump at the left wrist, laterally. He has been on dialysis for aout 1 yr, and a left radial artery to left radial vein a-v fistula dialysis graft was created at that time. According to the patient's nurse, this reported a-v fistula has been used in the past for dialysis, but recently, the dialysis team has stopped using it, and is using a right upper chest port, instead. We are asked to evaluated the reported a-v fistula for patency. ; Additional info: This patient was difficult to examine, due to his inability to understand and cooperate. I initially mislabeleld the artery in question as ulnar artery, but that is incorrect. I corrected the labelling at the end of the study. It is the left radial artery, and there is a pseudoaneurysm of the left radial artery, with no evidence of a connection to either of the left radial veins. At the time of this exam, an a-v fistula does not exist. The left radial veins easily compress and show no evidence of arterialization of the venous signal. The left radial pseudoaneurysm measures 1.18 x 0.60 x 0.90 cm. TECHNIQUE: Imaging protocol: Real-time Duplex ultrasound of the Left Upper Extremity with 2-D lucero scale, color Doppler flow and spectral waveform analysis with image documentation. Limited exam focused on the left upper extremity veins. COMPARISON: CT chest wo con [id number] 06/08/2021 11:40 AM FINDINGS: Left deep veins: Unremarkable. Axillary and brachial veins are patent throughout without thrombus. Normal Doppler waveforms. Normal compressibility and/or augmentation response. Visualized internal jugular and subclavian veins are patent. Left superficial veins: Unremarkable. Visualized cephalic and basilic veins are patent without thrombus. Soft tissues: Unremarkable. US/[place] [id number] IMPRESSION: 1. No evidence of deep vein thrombosis. 2. There is no arterialized flow in any of the veins visualized in the left upper extremity. This suggests that the previous AV fistula is occluded.
--- NOTE | 2021-06-09 10:56 | USR_ITS ---
PROCEDURE INFORMATION: Exam: US Unlisted Ultrasound Procedure Exam date and time: 06/09/2021 10:56 AM Age: 35 years old Clinical indication: Symptoms: Patient has a thrill and throbing lump at the left wrist, laterally. He has been on dialysis for aout 1 yr, and a left radial artery to left radial vein a-v fistula dialysis graft was created at that time. According to the patient's nurse, this reported a-v fistula has been used int he past for dialysis, but recently, the dialysis team has stopped using it, and is using a right upper chest port, instead. We are asked to evaluated the reported a-v fistula for patency. ; Prior surgery; Surgery date: 6+ months; Additional info: Patient has a thrill and throbing lump at the left wrist, laterally. He has been on dialysis for aout 1 yr, and a left radial artery to left radial vein a-v fistula dialysis graft was created at that time. According to the patient's nurse, this reported a-v fistula has been used in the past for dialysis, but recently, the dialysis team has stopped using it, and is using a right upper chest port, instead. We are asked to evaluated the reported a-v fistula for patency. TECHNIQUE: Imaging protocol: Unlisted ultrasound procedure (eg, diagnostic, interventional). COMPARISON: No relevant prior studies available. FINDINGS: Imaging in the patient's area of concern in the distal left wrist demonstrates a 1.2 x 0.9 x 0.6 cm pseudoaneurysm arising from the anterior radial artery. There is no visible arteriovenous communication or patent fistula. Normal triphasic waveform and peak systolic velocity in the radial artery. US/US soft tissue/extremity [id number] IMPRESSION: 1. 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 This likely accounts for the patient's pulsatile palpable abnormality. 2. No patent arteriovenous fistula identified.
[2021-06-09 11:00] LABS: D Dimer 19.94 ug/mIFEU (0-0.59)
[2021-06-09 11:08] LABS: C Reactive Protein 116.6 mg/L (0.0-4.9); Creatine Phosphokinase 46 U/L (39-308); Thyroid Stimulating Hormone 4.96 uIU/mL (0.27-4.20)
[2021-06-09 11:15] LABS: Vitamin B12 487 pg/mL (232-1245)
[2021-06-09 11:26] LABS: Folate Level 5.1 ng/mL (4.5-32.2)
[2021-06-09 11:45] LABS: HIV 1 & 2 Antibody Non-Reactive (Non-Reactiv); HIV 1 & 2 Antigen Non-Reactive (Non-Reactiv)
[2021-06-09 11:46] LABS: NT Pro B Type Natriuretic Pept > 70000 pg/mL (0-125); Procalcitonin > 100.00 ng/mL (0-0.5)
[2021-06-09 12:30] LABS: Vancomycin Trough 4.1 ug/mL (10-15)
--- NOTE | 2021-06-09 13:23 | NM_ITS ---
WS: [id number] NUCLEAR MEDICINE VENTILATION/PERFUSION LUNG SCAN HISTORY: hypoxia COMPARISON: Chest radiograph 06/07/2021 TECHNIQUE: Ventilation: 32.3 mCi of Technetium 99 DTPA aerosol inhaled. Perfusion: 5.3 mCi of technetium 99m MAA IV. Mild deposition of radionuclide centrally in the ventilatory portion. Otherwise good ventilation bila terally. Perfusion is normal. The cardiac silhouette is slightly enlarged but this is a matched defec t. NM/NM pul vent and perfus* [id number] IMPRESSION: Low probability pulmonary embolism.
[2021-06-09] MEDS: linezolid 600 mg Tablet PO (14:07)
--- NOTE | 2021-06-09 15:37 | P.PN_ITS ---
Subjective Subjective: Interval history: Hospital course noted. Today morning seen post BALTAZAR. Verbally reported to have possible vegetation on mitral and tricuspid valve. Official report awaited. On examination patient sedated on oxygen mask saturating 97%. Has remained hemodynamically stable and afebrile. Noted to have multiple track mota. Medications: Reviewed: Yes Vitals/I&O/Wt Last Vital Signs Temp 98.5 F 06/09/21 04:00 Pulse 87 06/09/21 14:07 Resp 15 06/09/21 12:30 BP 131/60 06/09/21 12:30 Pulse Ox 95 06/09/21 14:07 06/09/21 06/09/21 06/09/21 06:59 14:59 22:59 Intake Total 50 / 1200.25 841.667 / 841.667 Output Total 0 / 3589 Balance 50 / -2388.75 841.667 / 841.667 Weight last 48 hrs Weight 90.492 kg Weight 87.7 kg Weight 89.993 kg Weight 89.7 kg Weight 98.432 kg Physical Exam Const: COMMON NORMALS: no acute distress, patient oriented x3 and alert GENERAL APPEARANCE: cooperative ORIENTATION/CONSCIOUSNESS: Yes awake OTHER: Very CAMPO. HENMT: COMMON NORMALS: oropharynx normal Neck/C-Spine: COMMON NORMALS: no JVD Chest: OTHER: R chest tunneled catheter, currently do not appreciate erythema or drainage from the access site or significant swelling Resp: COMMON NORMALS: normal respiratory effort and clear to auscultation bilaterally AUSCULTATION: clear to auscultation bilaterally Cardio: COMMON NORMALS: no JVD, regular rhythm, S1 normal heart sound present, S2 normal heart sound present and No murmurs present (Cardio) RHYTHM: regular rhythm HEART SOUNDS: S1 normal heart sound present and S2 normal heart sound present GI: COMMON NORMALS: Normal to inspection, nondistended, normoactive bowel sounds present and Soft to palpation INSPECTION: Yes abdominal distension PALPATION: Yes Soft to palpation and Yes Tenderness to palpation present (GI) (Mild-moderate nonlocalized, reports chronic) Extremity: COMMON NORMALS: no joint enlargement and no pedal edema OTHER: Left forearm fistula, without any thrill, R forearm mildly swollen compared to L. 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 No loss of sensation or paresthesia. Warm and perfused. Neuro: COMMON NORMALS: patient oriented x3 and moves all extremities SENSORIUM/ORIENTATION: Yes alert Skin: COMMON NORMALS: no rashes or lesions noted GENERAL SKIN EXAM: no rashes or lesions noted OTHER: Diffuse excoriated lesions on face, LE, he states started after strawberry allergy Data : 06/09/21 03:25 06/09/21 03:25 Micro: Microbiology 06/07/21 17:22 Blood Culture - Preliminary Blood Methicillin Resis Staph Aureus 06/07/21 17:22 Blood Culture - Preliminary Blood Methicillin Resis Staph Aureus 06/07/21 13:40 Blood Culture - Preliminary Blood Methicillin Resis Staph Aureus 06/07/21 13:38 Blood Culture - Preliminary Blood Methicillin Resis Staph Aureus 06/09/21 10:25 Blood Culture - Preliminary Blood SPECIMEN COLLECTED 06/09/21 10:28 Blood Culture - Preliminary Blood SPECIMEN COLLECTED A&P Assessment and plan (1) MRSA bacteremia: Status: Acute (2) Hemodialysis catheter infection: Status: Acute Qualifiers: Encounter type: subsequent encounter Qualified Code(s): T82.7XXD - Infection and inflammatory reaction due to other cardiac and vascular devices, implants and grafts, subsequent encounter (3) Dialysis patient, noncompliant: Status: Acute (4) HTN (hypertension): Status: Acute (5) Cardiomegaly: Status: Acute (6) LVH (left ventricular hypertrophy): With history of hypertension. Not adherent with hemodialysis. I am not not certain that he is adherent with his medications at home. Continue HTN medicines. Aspirin, beta-lucas. Stress test when able. Unclear benefit of statin in setting of ESRD on dialysis. Status: Acute (7) Moderate mitral regurgitation: New finding. Most likely secondary to infective endocarditis. Status: Acute (8) Severe tricuspid regurgitation: Status: Acute (9) Diastolic heart failure: Status: Acute (10) Hypoxia: Status: Acute (11) Uremia: Status: Acute (12) Acute hyperkalemia: Resolved. On hemodialysis. Check daily BMP. Status: Acute (13) Ascites: Most likely from diastolic heart failure. Seems to be improving with regular dialysis. Check hepatitis panel, HIV. Status: Acute (14) Right forearm pain: Right forearm pain. Yesterday managed with venous duplex, no DVT. Persistent pain on the ulnar side. Reports injury with a range trying to fix h is girlfriend's car. Cannot rule out pyomyositis secondary to MRSA bacteremia/infective endocarditis. MRI already ordered. Status: Acute Additional A&P Information MRSA bacteremia: Most likely secondary to infection of hemodialysis catheter versus infected AV fistula. Most likely secondary to IV drug abuse. BALTAZAR results awaited. Repeat blood cultures. Blood cultures from admission and subsequent blood cultures positive for MRSA. Sensitivities awaited. We will consult ID for further recommendations. For now we will continue with HD catheter given need of continuous hemodialysis. Will plan for removal of HD catheter and insertion of tunneled catheter once patient clears up for at least 2 weeks. For now continue with vancomycin and Zosyn. We will try to time doses as per hemodialysis schedule. Check soft tissue ultrasound for AV fistula to rule out abscess or blood clot. MRI ordered for right arm swelling. Cannot rule out pyomyositis. Awaiting MRI. CKD on hemodialysis: Noncompliant. Appreciate nephrology recommendations. Monitor BMP daily. Hyperkalemia seems to be resolved. Check urinalysis. Hypoxia: COVID-19 PCR negative. Most likely secondary to congestive diastolic heart failure. Perfusion study low probability for PE. Hemodialysis with negative fluid balance. Change Lasix to 60 mg IV every 12 hourly. Monitor strict input output charting. Hypertension: Goal blood pressure less than 140/90 mmHg. Continue with home dose of hydralazine, nifedipine. For now decrease dose of Coreg to 12.5 mg twice daily. If remains stable can plan to transfer out of ICU within next 24 hours. Full code. Dialysis regular diet. Protonix for PUD prophylaxis. Heparin for DVT prophylaxis. Guarded prognosis. Attestations Medical Necessity Statement*: Requires further hospitalization further evaluation and management of MRSA bacteremia, hemodialysis catheter infection, CKD on hemodialysis, hypoxia secondary to congestive heart failure Time Spent in Patient Care: Greater than 35 minutes (>than 50% of time spent in counselling and/or direct pt care on unit) . 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
[2021-06-09 16:27] LABS: Free T4 Free Thyroxine 0.93 ng/dL (0.82-1.77); T3 Free 1.4 PG/ML (2.0-4.4)
--- NOTE | 2021-06-09 16:30 | USCV_ITS ---
Link Ann Age: 35 Gender: M : 1985 Exam Date: 06/09/2021 08:26 Ordering Phys: Nathanael Yoder MD ([email or web address]) Technologist: Manish Pal Exam Location: [facility] [place] Indication: MR/TR GRAM-POSITIVE ANEMIA, RULE OUT ENDOCARDITIS BP: / HR: Rhythm: Sinus Technical Quality: Good MEASUREMENTS (Male / Female) Normal Values Medications IV propofol was administered by anesthesia service Complications None Proc. Components The BALTAZAR probe was passed into the posterior pharynx , mid- esophagus, distal esophagus, and gastric fundus. BALTAZAR was performed at multiple levels. The patient tolerated the procedure well and there were no complications. FINDINGS Left Ventricle Normal left ventricular size, systolic function and wall thickness, with no regional wall motion abnormalities. Normal left ventricular wall thickness. Normal diastolic filling pattern. Right Ventricle Normal right ventricular size and systolic function. Right Atrium Moderately increased right atrial size. Left Atrium Mildly dilated LA Appendage Appendage is normal size and contractility. IA Septum Few bubbles were found to be crossing the atrial septum during saline contrast injection Mitral Valve Appears to have severe eccentric mitral regurgitation, encircling the left atrium. There is a 1.0 x 0.7 cm echogenic, circumscribed lesion at the atrial side of the anterior mitral annulus. Small echogenic lesions measuring less than 0.5 cm also been noted in the posterior mitral leaflet as well. Prolapse of the P2 scallop was seen. The mitral regurgitant fraction was calculated to be 69.6% Aortic Valve No gross abnormalities noted Tricuspid Valve Moderately severe tricuspid regurgitation was noted. The region that was directed. Small 0.8 x 0.9 cm echogenic fluffy mass was noted on the posterior tricuspid leaflet, on the atrial side Pulmonic Valve Structurally normal pulmonic valve. Pericardium Normal pericardium without effusion. Aorta Normal ascending aorta dimension. CONCLUSIONS Echogenic lesions on the anterior mitral annulus ,posterior mitral leaflet and posterior tricuspid valve, measuring anywhere from 1.0 to 0.5 cm in size. Suggestive of endocarditis. Features of severe mitral regurgitation with a regurgitant fraction of 69.6% Moderately severe tricuspid regurgitation Normal LV size ejection fraction. Biatrial enlargement, right worse than the left. No pericardial effusion. Possible small patent foramen ovale. No similar previous studies available for comparison Dr Nathanael Yoder MD FACC (Electronically Signed) Final Date: 11 June 2021 05:22 S
[2021-06-09] MEDS: vancomycin 1,000 MG in sodium chloride 0.9% 250 ML 250 MG IV (16:44)
[2021-06-10] VITALS (103 sets, daily range): BP systolic 126–209; BP diastolic 49–135; PULSE 0–108; RESP 7–30; TEMP 36.6–37.2; O2SAT 71–99
[2021-06-10] MEDS: piperacillin-tazobactam 3.375 GM in sodium chloride 0.9% (plus) 50 ML IV ×2 (02:48→14:40)
[2021-06-10] MEDS: vancomycin 1,000 MG in sodium chloride 0.9% 250 ML 250 MG IV (02:49)
[2021-06-10 05:34] LABS: Alanine Aminotransferase 12 U/L (0-41); Albumin Level 3.6 g/dL (3.5-5.2); Alkaline Phosphatase 111 IU/L (40-130); Anion Gap 22.9 (5-19); Aspartate Amino Transferase 18 U/L (0-40); Blood Urea Nitrogen 34 mg/dL (6-20); Calcium 8.9 mg/dL (8.5-10.5); Carbon Dioxide 23 mmol/L (22-29); Chloride 96 mmol/L (98-107); Chol HDL Ratio 4.28 mg/dL (1.0-5.00); Cholesterol 107 mg/dL (0-200); Glomerular Filtration Rate 9.7 mL/min (90-130); Glucose 110 mg/dL (65-115); HDL Cholesterol 25 mg/dL (60-100); LDL Cholesterol Calculated 53 mg/dL (50-129); Osmolality Calculated 294 mOsm/kg (285-295); Potassium 3.9 mmol/L (3.5-5.1); Sodium 138 mmol/L (136-145); Total Bilirubin 0.4 mg/dL (0.15-1.2); Total Protein 6.6 g/dL (6.6-8.7); Triglycerides 146 mg/dL (0-150); VLDL Cholestrol Calculation 29 mg/dL (0-30)
[2021-06-10 05:40] LABS: Basophils % 0.6 %; Eosinophils # 0.2 10^3/uL (0.0-0.8); Eosinophils % 2.7 %; Hematocrit 26.9 % (42.0-52.0); Hemoglobin 8.2 g/dL (11.7-16.6); Lymphocytes # 0.7 10^3/uL (0.8-4.8); Lymphocytes % 10.3 %; Mean Corpuscular HGB Conc 30.5 g/dL (30.0-36.0); Mean Corpuscular Hemoglobin 27.1 pg (28.0-34.0); Mean Corpuscular Volume 88.8 fl (80-94); Mean Platelet Volume 11.5 fL (7.4-10.4); Monocytes # 0.7 10^3/uL (0.2-0.9); Monocytes % 10.9 %; Neutrophils # 4.79 10^3/uL (1.8-7.7); Neutrophils % 74.9 %; Nucleated Red Blood Cells % 0 %; Platelet Count 215 10^3/cmm (130-400); Red Blood Count 3.03 10^6/uL (4.1-5.3); Red Cell Distribution Width 18.4 % (12.1-15.1); White Blood Count 6.4 10^3/uL (4.0-10.0)
[2021-06-10 05:45] LABS: Estmated Average Glucose 85; Hemoglobin A1C 4.6 % (4.0-6.0)
[2021-06-10] MEDS: minoxidil 10 mg Tablet 5 MG PO (08:28)
[2021-06-10] MEDS: carvedilol 12.5 mg Tablet PO (08:29)
[2021-06-10] MEDS: hyDRALAzine 50 mg Tablet 100 MG PO ×3 (08:29→20:01)
[2021-06-10] MEDS: heparin 5,000 unit/mL INJ 1 mL 5000 UNIT SUBCUT ×2 (08:30→20:04)
[2021-06-10] MEDS: pantoprazole DR 40 mg Tablet PO (08:30)
[2021-06-10] MEDS: NIFEdipine ER (24 hr) 30 mg Tablet 90 MG PO (08:30)
--- NOTE | 2021-06-10 08:54 | P.PN_ITS ---
Subjective Subjective: Interval history: wrist pain. no n/v/f/c/dunaway/d Medications: Reviewed: Yes Medication Review Details: Current Medications Acetaminophen (Acetaminophen 325 Mg Tablet) 650 mg PO Q6H PRN PRN Reason: Mild/Mod Pain Or Temp >/= 101 Last Admin: 06/08/21 19:51 Dose: 650 mg Documented by: Carvedilol (Carvedilol 12.5 Mg Tablet) 12.5 mg PO BID@0900,2100 [facility] Last Admin: 06/10/21 08:29 Dose: 12.5 mg Documented by: Furosemide (Furosemide 10 Mg/Ml Sdv 10ml) 60 mg IVP Q12H [facility] Last Admin: 06/09/21 21:00 Dose: 60 mg Documented by: Heparin Sodium (Porcine) (Heparin 5,000 Unit/Ml Inj 1 Ml) 5,000 unit SUBCUT Q12H [facility] Last Admin: 06/10/21 08:30 Dose: 5,000 unit Documented by: Heparin Sodium (Porcine) (Heparin, Porcine 1,000 Unit/Ml Inj 10 Ml) 10,000 unit HE ONCE PRN PRN Reason: Dialysis Hydralazine HCl (Hydralazine 50 Mg Tablet) 100 mg PO TID [facility] Last Admin: 06/10/21 08:29 Dose: 100 mg Documented by: Sodium Chloride (Sodium Chloride 0.9%) 1,000 mls @ 0 mls/hr IV .Q0M PRN PRN Reason: hypotension or symptomatic Piperacillin Sod/Tazobactam (Sod 3.375 gm/ Sodium Chloride) 50 mls @ 12.5 mls/hr IV Q12H [facility]; Protocol Last Admin: 06/10/21 02:48 Dose: 12.5 mls/hr Documented by: Vancomycin HCl 1,000 mg/ (Sodium Chloride) 250 mls @ 250 mls/hr IV Q48H [facility] Last Infusion: 06/10/21 06:20 Dose: Infused Documented by: Epoetin Avila 5,000 unit/ N/A 0.25 mls @ 0 mls/hr IVP ONCE [facility] Last Infusion: 06/08/21 16:18 Dose: Infused Documented by: Minoxidil (Minoxidil 10 Mg Tablet) 5 mg PO DAILY [facility] Last Admin: 06/10/21 08:28 Dose: 5 mg Documented by: Nifedipine (Nifedipine Er (24 Hr) 30 Mg Tablet) 90 mg PO DAILY [facility] Last Admin: 06/10/21 08:30 Dose: 90 mg Documented by: Ondansetron HCl (Ondansetron 2 Mg/Ml Sdv 2 Ml) 4 mg IVP Q8H PRN PRN Reason: vomiting, or N/V if npo Last Admin: 06/08/21 20:32 Dose: 4 mg Documented by: Oxycodone/Acetaminophen (Oxycodone-Apap 5-325 Mg Tablet) 1 tab PO Q6H PRN PRN Reason: MODERATE PAIN Pantoprazole Sodium (Pantoprazole Dr 40 Mg Tablet) 40 mg PO DAILY [facility] Last Admin: 06/10/21 08:30 Dose: 40 mg Documented by: Vitals/I&O/Wt Last Vital Signs Temp 97.8 F 06/10/21 05:15 Pulse 104 H 06/10/21 05:37 Resp 8 L 06/10/21 05:15 BP 180/76 06/10/21 05:15 Pulse Ox 91 06/10/21 05:15 06/09/21 06/10/21 06/10/21 22:59 06:59 14:59 Intake Total 200 / 1041.667 250 / 1291.667 Balance 200 / 1041.667 250 / 1291.667 Weight last 48 hrs Weight 94.801 kg Weight 90.492 kg Weight 87.7 kg Physical Exam Narrative: EXAM NARRATIVE: in bed in icu, vs noted - bp elevated heent- nc/at, eomi, anicteric neck supple lung cta b/l heart reg, +XIMENA abd soft, nt, nd, + bs ext RUE edema LUE AVF neuro- a,a, o x 3 permacath remains Data : 06/10/21 04:04 06/10/21 04:04 Micro: Microbiology 06/07/21 17:22 Blood Culture - Preliminary Blood Methicillin Resis Staph Aureus 06/07/21 17:22 Blood Culture - Preliminary Blood Methicillin Resis Staph Aureus 06/07/21 13:40 Blood Culture - Preliminary Blood Methicillin Resis Staph Aureus 06/07/21 13:38 Blood Culture - Preliminary Blood Methicillin Resis Staph Aureus 06/09/21 10:25 Blood Culture - Preliminary Blood SPECIMEN COLLECTED 06/09/21 10:28 Blood Culture - Preliminary Blood SPECIMEN COLLECTED A&P Assessment and plan (1) ESRD (end stage renal disease) on dialysis: Seen via telehealth with assistance of RN at bedside 1. ESRD - s/p HD yesterday- 2. staph aureus bacteremia- renal dose abx -keep vanco trough under 20 -discuss w/ ID - remove dialysis catheter -line hol- fem carl wednesday -plan permacath on BALTAZAR f/u official result- -would consider PD 3. Anemia, Hb lower. epogen mwf -no iv iron w/ bacteremia 4. MR/ TR per cardiology 5. Hypertension- monitor 6. BASSAM per medicine lasix seen and examined w/ RN- telehealth visit time spent . 30 min discussed w/ cardiology, [employer]ER and Dr. 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
--- NOTE | 2021-06-10 09:32 | PM.PN ---
Subjective Subjective: Interval history: Hospital course noted. Today morning seen post BALTAZAR. Verbally reported to have possible vegetation on mitral and tricuspid valve. Official report awaited. On examination patient sedated on oxygen mask saturating 97%. Has remained hemodynamically stable and afebrile. Noted to have multiple track mota. Medications: Reviewed: Yes Vitals/I&O/Wt Last Vital Signs Temp 97.8 F 06/10/21 05:15 Pulse 104 H 06/10/21 05:37 Resp 8 L 06/10/21 05:15 BP 180/76 06/10/21 05:15 Pulse Ox 91 06/10/21 05:15 06/09/21 06/10/21 06/10/21 22:59 06:59 14:59 Intake Total 200 / 1041.667 250 / 1291.667 240 / 240 Balance 200 / 1041.667 250 / 1291.667 240 / 240 Weight last 48 hrs Weight 94.801 kg Weight 90.492 kg Weight 87.7 kg Physical Exam Const: COMMON NORMALS: no acute distress, patient oriented x3 and alert GENERAL APPEARANCE: cooperative ORIENTATION/CONSCIOUSNESS: Yes awake OTHER: Very [place] [employer]. HENMT: COMMON NORMALS: oropharynx normal Neck/C-Spine: COMMON NORMALS: no JVD Chest: OTHER: R chest tunneled catheter, currently do not appreciate erythema or drainage from the access site or significant swelling Resp: COMMON NORMALS: normal respiratory effort and clear to auscultation bilaterally AUSCULTATION: clear to auscultation bilaterally Cardio: COMMON NORMALS: no JVD, regular rhythm, S1 normal heart sound present, S2 normal heart sound present and No murmurs present (Cardio) RHYTHM: regular rhythm HEART SOUNDS: S1 normal heart sound present and S2 normal heart sound present GI: COMMON NORMALS: Normal to inspection, nondistended, normoactive bowel sounds present and Soft to palpation INSPECTION: Yes abdominal distension PALPATION: Yes Soft to palpation and Yes Tenderness to palpation present (GI) (Mild-moderate nonlocalized, reports chronic) Extremity: COMMON NORMALS: no joint enlargement and no pedal edema OTHER: Left forearm fistula, without any thrill, R forearm mildly swollen compared to L. 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 No loss of sensation or paresthesia. Warm and perfused. Neuro: COMMON NORMALS: patient oriented x3 and moves all extremities SENSORIUM/ORIENTATION: Yes alert Skin: COMMON NORMALS: no rashes or lesions noted GENERAL SKIN EXAM: no rashes or lesions noted OTHER: Diffuse excoriated lesions on face, LE, he states started after strawberry allergy Data : 06/10/21 04:04 06/10/21 04:04 Micro: Microbiology 06/07/21 17:22 Blood Culture - Preliminary Blood Methicillin Resis Staph Aureus 06/07/21 17:22 Blood Culture - Preliminary Blood Methicillin Resis Staph Aureus 06/07/21 13:40 Blood Culture - Preliminary Blood Methicillin Resis Staph Aureus 06/07/21 13:38 Blood Culture - Preliminary Blood Methicillin Resis Staph Aureus 06/09/21 10:25 Blood Culture - Preliminary Blood SPECIMEN COLLECTED 06/09/21 10:28 Blood Culture - Preliminary Blood SPECIMEN COLLECTED A&P Assessment and plan (1) MRSA bacteremia: Status: Acute (2) Hemodialysis catheter infection: Status: Acute Qualifiers: Encounter type: subsequent encounter Qualified Code(s): T82.7XXD - Infection and inflammatory reaction due to other cardiac and vascular devices, implants and grafts, subsequent encounter (3) Dialysis patient, noncompliant: Status: Acute (4) HTN (hypertension): Status: Acute (5) Cardiomegaly: Status: Acute (6) LVH (left ventricular hypertrophy): With history of hypertension. Not adherent with hemodialysis. I am not not certain that he is adherent with his medications at home. Continue HTN medicines. Aspirin, beta-lucas. Stress test when able. Unclear benefit of statin in setting of ESRD on dialysis. Status: Acute (7) Moderate mitral regurgitation: New finding. Most likely secondary to infective endocarditis. Status: Acute (8) Severe tricuspid regurgitation: Status: Acute (9) Diastolic heart failure: Status: Acute (10) Hypoxia: Status: Acute (11) Uremia: Status: Acute (12) Acute hyperkalemia: Resolved. On hemodialysis. Check daily BMP. Status: Acute (13) Ascites: Most likely from diastolic heart failure. Seems to be improving with regular dialysis. Check hepatitis panel, HIV. Status: Acute (14) Right forearm pain: Right forearm pain. Yesterday managed with venous duplex, no DVT. Persistent pain on the ulnar side. Reports injury with a range trying to fix his girlfriend's car. Cannot rule out pyomyositis secondary to MRSA bacteremia/infective endocarditis. MRI could not be done yesterday because patient had full tolerated. We will do CT to rule out any collection. Status: Acute Plan MRSA bacteremia: Most likely secondary to infection of hemodialysis catheter versus infected AV fistula. Most likely secondary to IV drug abuse. BALTAZAR results awaited. Verbally told to have infective endocarditis. Repeat blood cultures. Blood cultures from admission and subsequent blood cultures positive for MRSA.? Sensitivities awaited. We will consult ID for further recommendations.? Case discussed with ID and nephrology. No plan for dialysis hopefully till . Plan to give line holiday. We will consult remediation bioanalytics consultant for removal of HD catheter. Plan for Shiley femoral placement on for hemodialysis and then removal of the catheter hopefully on Wednesday with long-term plan for peritoneal dialysis catheter which hopefully can be placed early next week. For now continue with vancomycin and Zosyn.? We will try to time doses as per hemodialysis schedule. Target vancomycin trough levels 15-20. Repeat Vanco random level every morning for now. Check soft tissue ultrasound for AV fistula ruled out abscess or blood clot. AV fistula not working anymore. Right arm swelling. Cannot rule out pyomyositis. Will do CT as patient not able to tolerate MRI yesterday. CKD on hemodialysis: Noncompliant. Appreciate nephrology recommendations. Plan for line holiday. Removal of HD catheter. Long-term peritoneal dialysis. Peritoneal dialysis catheter hopeful to be placed early next week if blood cultures cleared up by then. Monitor BMP daily. Hyperkalemia seems to be resolved. Check urinalysis. Hypoxia: COVID-19 PCR negative.? Most likely secondary to congestive diastolic heart failure. Perfusion study low probability for PE. Hemodialysis with negative fluid balance. Continue with Lasix to 60 mg IV every 12 hourly. Monitor strict input output charting. Hypertension: Goal blood pressure less than 140/90 mmHg. Blood pressure is elevated. Continue with home dose of hydralazine, nifedipine. Increase Coreg to 25 mg daily. Add clonidine 0.1 mg patch. Will uptitrate accordingly. Can transfer out of ICU to [facility]. Full code. Dialysis regular diet. Protonix for PUD prophylaxis. Heparin for DVT prophylaxis. Guarded prognosis. Discharge planning: Will most likely need IV antibiotics for 6 weeks once blood cultures clear up. Most likely will need placement for IV antibiotics given history of drug abuse will be difficult to send patient out with a PICC line. Will consult case management. Patient will also need new peritoneal dialysis catheter teaching before discharge and also set up as an outpatient. Attestations Medical Necessity Statement*: Requires further hospitalization for management of MRSA infective endocarditis, CKD on hemodialysis, accelerated hypertension Critical Care Time: The high probability of a clinically significant, sudden or life threatening deterioration of the patient's [nephro, cardiac, ID system(s) required my full and direct attention, intervention and personal management. The critical care time is as shown. This time is in addition to time spent performing any reported procedures but includes the following: [x] Data and vital sign review and interpretation [x] Patient assessment, examination and intervention [x] Documentation [x] Medication orders and management Critical Care Time (min): 70 Coding Level of Care Code Acute Chief Mechanical Engineer for Chg Fwd History Comprehensive Exam Comprehensive Medical Decision Making High Complexity Diagnoses MRSA bacteremia R78.81; B95.62 Hemodialysis catheter infection T82.7XXD Encounter type: subsequent encounter Dialysis patient, noncompliant Z91.15 HTN (hypertension) I10 Cardiomegaly I51.7 LVH (left ventricular hypertrophy) I51.7 Moderate mitral regurgitation I34.0 Severe tricuspid regurgitation I07.1 Diastolic heart failure I50.30 Hypoxia R09.02 Uremia N19 Acute hyperkalemia E87.5 Ascites R18.8 Right forearm pain M79.631
[2021-06-10] MEDS: HYDROmorphone 1 mg/mL INJ 1 mL 0.5 MG IVP (09:49)
[2021-06-10] MEDS: cloNIDine 0.1 mg/24 hr Patch 1 PATCH TRANSDERMA (11:44)
[2021-06-10] MEDS: FUROsemide 10 mg/mL SDV 10mL 60 MG IVP ×2 (11:44→21:16)
--- NOTE | 2021-06-10 12:00 | P.CONIM_ITS ---
Providers/Reason For Consult Consulting Physician/Specialty*: General Surgery Pablito Sams MD Reason for Consult*: Requesting removal of hemodialysis catheter. Attending Physician: Krishan Ryan MD Primary Care Provider: Kumra Carvajal MD History of Present Illness History of Present Illness Link Ann is a 35 year old male who has had a hemodialysis catheter in place for approximately 9 months. The catheter was inserted in [place] to the patient's recollection. He now has been diagnosed with MRSA bacteremia and a recent echocardiogram showed possible vegetations in his heart. I have been asked to remove the patient's hemodialysis catheter. Review of Systems Const: Reports: fever(s) (Occasional low-grade) GI: Reports: abdominal pain Medications/Allergies Home Medications Medication Instructions Recorded Confirmed Last Taken Type furosemide 80 mg tablet 80 mg PO BID 04/09/21 06/07/21 Unknown History hydralazine 100 mg tablet 100 mg PO TID 04/09/21 06/07/21 Unknown History minoxidil 10 mg tablet 5 mg PO DAILY 04/09/21 06/07/21 Unknown History pantoprazole 40 mg tablet,delayed 40 mg PO DAILY 04/09/21 06/07/21 Unknown History release vit B,C-folic ac 800 mcg-zinc 12.5 1 tab PO DAILY 04/09/21 06/07/21 Unknown History mg-selen-D3 2,000 unit-vit E tablet (RenaPlex-D) carvedilol 25 mg tablet 25 mg PO BID 06/07/21 06/07/21 Unknown History lactulose 10 gram/15 mL oral 30 ml PO DAILY PRN 06/07/21 06/07/21 Unknown History solution (Generlac) nifedipine 90 mg tablet,extended 90 mg PO DAILY 06/07/21 06/07/21 Unknown History release Allergies Allergy/AdvReac Type Severity Reaction Status Date / Time strawberry Allergy Mild ALGY-Rash Unverified 06/07/21 16:24 Current Medications Generic Name Dose Route Start Last Admin Trade Name Freq PRN Reason Stop Dose Admin Acetaminophen 650 mg 06/07/21 16:38 06/08/21 19:51 Acetaminophen 325 Mg Tablet PO 650 mg Q6H PRN Administration Mild/Mod Pain Or Temp >/= 101 Clonidine HCl 1 patch 06/10/21 10:00 06/10/21 11:44 Clonidine 0.1 Mg/24 Hr Patch TRANSDERMA 1 patch Q7D VASHTI Administration Furosemide 60 mg 06/09/21 10:00 06/10/21 11:44 Furosemide 10 Mg/Ml Sdv 10ml IVP 60 mg Q12H [facility]ASHTI Administration Heparin Sodium (Porcine) 5,000 unit 06/08/21 20:00 06/10/21 08:30 Heparin 5,000 Unit/Ml Inj 1 Ml SUBCUT 5,000 unit Q12H [facility]ASHTI Administration Hydralazine HCl 100 mg 06/07/21 21:00 06/10/21 08:29 Hydralazine 50 Mg Tablet PO 100 mg TID VASHTI Administration Piperacillin Sod/Tazobactam 50 mls @ 12.5 mls/hr 06/08/21 02:00 06/10/21 02:48 Sod 3.375 gm/ Sodium Chloride IV 12.5 mls/hr Q12H [facility]ASHTI Administration Protocol Vancomycin HCl 1,000 mg/ 250 mls @ 250 mls/hr 06/09/21 17:00 06/10/21 06:20 Sodium Chloride IV Infused Q48H [facility]I Infusion Minoxidil 5 mg 06/07/21 21:00 06/10/21 08:28 Minoxidil 10 Mg Tablet PO 5 mg DAILY [facility] Administration Nifedipine 90 mg 06/08/21 09:00 06/10/21 08:30 Nifedipine Er (24 Hr) 30 Mg Tablet PO 90 mg DAILY AVSHTI Administration Ondansetron HCl 4 mg 06/07/21 16:38 06/08/21 20:32 Ondansetron 2 Mg/Ml Sdv 2 Ml IVP 4 mg Q8H PRN Administration vomiting, or N/V if npo Pantoprazole Sodium 40 mg 06/08/21 09:00 06/10/21 08:[address] 40 Mg Tablet PO 40 mg DAILY [facility]I Administration PFSH Acute PFSH: Medical History Alport syndrome Dialysis AV fistula malfunction Diastolic heart failure HTN (hypertension) Surgical History (Updated 06/10/21 @ 12:06 by Pablito Sams MD) Fistula Left forearm S/P hemodialysis catheter insertion Multiple Status post dialysis Family History Other ESRD (end stage renal disease) Social History Smoking and tobacco status: never smoked Alcohol intake: never Substance/Drug Use: former Other details last substance use: Marijuana. Denies any other. Denies IVDU. Lives independently: Yes Household members: spouse Marital status: Current occupational status: unemployed Vitals/I&O/Wt Last Vital Signs Temp 99 F 06/10/21 09:30 Pulse 103 H 06/10/21 09:30 Resp 16 06/10/21 09:49 BP 149/62 06/10/21 11:44 Pulse Ox 93 06/10/21 09:49 06/09/21 06/10/21 06/10/21 22:59 06:59 14:59 Intake Total 200 / 1291.667 250 / 1291.667 240 / 240 Balance 200 / 1291.667 250 / 1291.667 240 / 240 Weight last 48 hrs Weight 209 lb Weight 199 lb 8 oz Weight 193 lb 5.526 oz Physical Exam Narrative: EXAM NARRATIVE: The patient was encountered in his room in the intensive care unit. He does not appear to be in any distress. The pupils are equal. The lungs are clear anteriorly. The heart is regular. The patient has a tunneled hemodialysis catheter on the right side of the chest which seems to enter the right internal jugular vein subcutaneously. The site itself is fairly unremarkable. The abdomen reveals bowel sounds and is soft but he has some scattered tenderness about the abdomen. No obvious masses are palpated. The extremities reveal no edema. Neurologically the patient appears to be grossly intact. Data : 06/10/21 04:04 06/10/21 04:04 Micro: Microbiology 06/09/21 10:25 Blood Culture - Preliminary Blood NEGATIVE TO DATE 06/09/21 10:28 Blood Culture - Preliminary Blood NEGATIVE TO DATE 06/07/21 17:22 Blood Culture - Preliminary Blood Methicillin Resis Staph Aureus 06/07/21 17:22 Blood Culture - Preliminary Blood Methicillin Resis Staph Aureus 06/07/21 13:40 Blood Culture - Preliminary Blood Methicillin Resis Staph Aureus 06/07/21 13:38 Blood Culture - Preliminary Blood Methicillin Resis Staph Aureus A&P Assessment and plan (1) MRSA bacteremia: I have been asked to remove the patient's hemodialysis catheter. Given the fact that it is a tunneled catheter I told the patient I would prefer to go to the operating room to do this as we can do it under more of a controlled circumstance and probably make him more comfortable. I made him aware that I would probably not let him eat lunch if we go remove this later today so that we could give him some sedation. He says he would prefer to eat lunch and have no sedation for the procedure and just have the procedure done under local anesthesia alone. I will make arrangements for removal of the patient's tunneled hemodialysis catheter later today. Plan as above. Status: Acute (2) Hemodialysis catheter infection: Status: Acute Qualifiers: Encounter type: subsequent encounter Qualified Code(s): T82.7XXD - Infection and inflammatory reaction due to other cardiac and vascular devices, i mplants and grafts, subsequent encounter Coding Level of Care Code Acute Incident Coordinator for [facility] Diagnoses MRSA bacteremia R78.81; B95.62 Hemodialysis catheter infection T82.7XXD Encounter type: subsequent encounter
--- NOTE | 2021-06-10 16:23 | PM.OP ---
Operative Report Date of procedure: June 10, 2021 Pre-op diagnosis: Preop Diagnosis: MRSA bacteremia, suspected hemodialysis catheter infection. Post-op diagnosis: Same. Procedure done: Removal of tunneled hemodialysis catheter. Specimens removed/disposition: Catheter tip sent for culture. Surgeon: General Surgery Pablito Sams MD Estimated blood loss: Less than 5 mL. Complications: None. Procedure: The patient was brought to the operating room and was left in a supine position on his ICU bed. The catheter site on the right side of the chest was prepped and draped in a sterile fashion. A combination of 1% lidocaine with 1:100,000 parts epinephrine and 0.5% bupivacaine was used for local anesthesia throughout the procedure. The insertion point of the catheter was slightly enlarged with a scalpel along the axis of the catheter. A hemostat was used to free the subcutaneous cuff from the surrounding tissue and the catheter was removed intact with traction. The tip was removed and was sent for culture. A sterile pressure dressing was placed over the surgical site. The patient was returned to the ICU in stable condition.
--- NOTE | 2021-06-10 17:02 | CTR_ITS ---
PROCEDURE INFORMATION: Exam: CT Right Upper Extremity With Contrast, Forearm Exam date and time: 06/10/2021 5:02 PM Age: 35 years old Clinical indication: Arm, lower; Right; Patient HX: Swelling with redness to RT mid to distal forearm. ; Additional info: MRSA endocarditis, swelling right wrist, supected abscess vs pyomyositis vs septic wrist in patient TECHNIQUE: Imaging protocol: CT of the Right upper extremity with intravenous contrast was performed. Exam focused on the forearm. Radiation optimization: All CT scans at this facility use at least one of these dose optimization techniques: automated exposure control; mA and/or kV adjustment per patient size (includes targeted exams where dose is matched to clinical indication); or iterative reconstruction. Contrast material: VISI 320; Contrast volume: 75 ml; Contrast route: INTRAVENOUS (IV); COMPARISON: CR ([facility], ) 06/08/2021 4:17 PM RADIATION DOSE METRICS: Total DLP (mGy-cm): 741.33 FINDINGS: Bones/joints: Bones are unremarkable. Soft tissues: There is a fluid collection measuring 4.1 x 1.6 cm axial dimension and 5.6 cm in length located in the extensor musculature along the dorsal lateral margin of the distal radius. See axial series 4, image 61, sagittal series 200, image 37, and coronal series [address]/CT forearm RT w con [id number] IMPRESSION: Intramuscular fluid collection along the dorsal lateral margin of the distal radius consistent with abscess.
[2021-06-10] MEDS: ferrous gluconate 324 mg Tablet PO (17:37)
--- NOTE | 2021-06-10 17:39 | P.PN_ITS ---
Subjective Subjective: Interval history: Patient is feeling okay with no chest pain or shortness of breath. No fever or chills. Vital signs remained stable. No new symptoms. Planning to have the infected dialysis catheter removed tomorrow. Medications: Medication Review Details: Current Medications Acetaminophen (Acetaminophen 325 Mg Tablet) 650 mg PO Q6H PRN PRN Reason: Mild/Mod Pain Or Temp >/= 101 Last Admin: 06/08/21 19:51 Dose: 650 mg Documented by: Carvedilol (Carvedilol 25 Mg Tablet) 25 mg PO BID@0900,2100 [facility] Clonidine HCl (Clonidine 0.1 Mg/24 Hr Patch) 1 patch TRANSDERMA Q7D [facility] Last Admin: 06/10/21 11:44 Dose: 1 patch Documented by: Ferrous Gluconate (Ferrous Gluconate 324 Mg Tablet) 324 mg PO BIDWM [facility] Last Admin: 06/10/21 17:37 Dose: 324 mg Documented by: Furosemide (Furosemide 10 Mg/Ml Sdv 10ml) 60 mg IVP Q12H [facility] Last Admin: 06/10/21 11:44 Dose: 60 mg Documented by: Heparin Sodium (Porcine) (Heparin 5,000 Unit/Ml Inj 1 Ml) 5,000 unit SUBCUT Q12H [facility] Last Admin: 06/10/21 08:30 Dose: 5,000 unit Documented by: Heparin Sodium (Porcine) (Heparin, Porcine 1,000 Unit/Ml Inj 10 Ml) 10,000 unit HE ONCE PRN PRN Reason: Dialysis Hydralazine HCl (Hydralazine 50 Mg Tablet) 100 mg PO TID [facility] Last Admin: 06/10/21 14:37 Dose: 100 mg Documented by: Sodium Chloride (Sodium Chloride 0.9%) 1,000 mls @ 0 mls/hr IV .Q0M PRN PRN Reason: hypotension or symptomatic Piperacillin Sod/Tazobactam (Sod 3.375 gm/ Sodium Chloride) 50 mls @ 12.5 mls/hr IV Q12H [facility]; Protocol Last Admin: 06/10/21 14:40 Dose: 12.5 mls/hr Documented by: Vancomycin HCl 1,000 mg/ (Sodium Chloride) 250 mls @ 250 mls/hr IV Q48H [facility] Last Infusion: 06/10/21 06:20 Dose: Infused Documented by: Epoetin Avila 5,000 unit/ N/A 0.25 mls @ 0 mls/hr IVP QMWF [facility] Minoxidil (Minoxidil 10 Mg Tablet) 5 mg PO DAILY [facility] Last Admin: 06/10/21 08:28 Dose: 5 mg Documented by: Nifedipine (Nifedipine Er (24 Hr) 30 Mg Tablet) 90 mg PO DAILY [facility] Last Admin: 06/10/21 08:30 Dose: 90 mg Documented by: Ondansetron HCl (Ondansetron 2 Mg/Ml Sdv 2 Ml) 4 mg IVP Q8H PRN PRN Reason: vomiting, or N/V if npo Last Admin: 06/08/21 20:32 Dose: 4 mg Documented by: Oxycodone/Acetaminophen (Oxycodone-Apap 5-325 Mg Tablet) 1 tab PO Q6H PRN PRN Reason: MODERATE PAIN Pantoprazole Sodium (Pantoprazole Dr 40 Mg Tablet) 40 mg PO DAILY [facility] Last Admin: 06/10/21 08:30 Dose: 40 mg Documented by: Vitals/I&O/Wt Last Vital Signs Temp 98.3 F 06/10/21 12:30 Pulse 100 06/10/21 16:20 Resp 20 H 06/10/21 16:20 BP 137/65 06/10/21 16:20 Pulse Ox 97 06/10/21 16:20 06/10/21 06/10/21 06/10/21 06:59 14:59 22:59 Intake Total 300 / 1341.667 702 / 702 Balance 300 / 1341.667 702 / 702 Weight last 48 hrs Weight 209 lb Weight 199 lb 8 oz Physical Exam Narrative: EXAM NARRATIVE: GENERAL: The patient is alert and oriented times three. Not in any acute distress. HEENT: No significant pallor, icterus or lymphadenopathy. The pupils are symmetrical t. Oral cavity: There are no mucous membrane lesions. NECK: Trachea appears to be central. No masses noted. No JVD or thyromegaly appreciated. No carotid bruit. RESPIRATORY: Chest is symmetrical. No intercostals muscle retraction or any accessory muscle activation. There is no chest wall tenderness. Breath sounds are heard bilaterally. No rales or rhonchi heard. No evidence of any consolidation. BREASTS: Deferred. HEART: The PMI is in the 5th left intercostals space just inside the midclavicular line. No palpable precordial events. S1 and S2 are normal. No S3 or S4 heard. Systolic murmur of grade 4/6 on the left sternal border. No diastolic murmurs. ABDOMEN: Abdomen is diffusely tender with minimal guarding. Bowel sounds are heard but somewhat sluggish. : Deferred. RECTAL: Deferred. LYMPHATIC: No lymphadenopathy noted in the neck . EXTREMITIES: No edema or cyanosis. No clubbing. The peripheral pulses are pa lpable and fairly good volume and amplitude. He has a thrill in the left radial artery MUSCULOSKELETAL: No acute joint deformities or swelling. SKIN: Extensive tattoo markings in the extremities and also on the chest NEUROPSYCHIATRIC: The patient is alert and oriented x3. Appears to be in a good mood. He is hard of hearing Data : 06/10/21 04:04 06/10/21 04:04 Other Labs: Laboratory Last Values WBC 6.4 10^3/uL (4.0-10.0) 06/10/21 04:04 RBC 3.03 10^6/uL (4.1-5.3) L 06/10/21 04:04 Hgb 8.2 g/dL (11.7-16.6) L 06/10/21 04:04 Hct 26.9 % (42.0-52.0) L 06/10/21 04:04 MCV 88.8 fl (80-94) 06/10/21 04:04 MCH 27.1 pg (28.0-34.0) L 06/10/21 04:04 MCHC 30.5 g/dL (30.0-36.0) 06/10/21 04:04 RDW 18.4 % (12.1-15.1) H 06/10/21 04:04 Plt Count 215 10^3/cmm (130-400) 06/10/21 04:04 MPV 11.5 fL (7.4-10.4) H 06/10/21 04:04 Neut % (Auto) 74.9 % 06/10/21 04:04 Lymph % (Auto) 10.3 % 06/10/21 04:04 Pickett % (Auto) 10.9 % 06/10/21 04:04 Eos % (Auto) 2.7 % 06/10/21 04:04 Baso % (Auto) 0.6 % 06/10/21 04:04 Neut # (Auto) 4.79 10^3/uL (1.8-7.7) 06/10/21 04:04 Lymph # (Auto) 0.7 10^3/uL (0.8-4.8) L 06/10/21 04:04 Pickett # (Auto) 0.7 10^3/uL (0.2-0.9) 06/10/21 04:04 Eos # (Auto) 0.2 10^3/uL (0.0-0.8) 06/10/21 04:04 Baso # (Auto) 0.0 10^3/uL (0.0-0.1) 06/10/21 04:04 Nucleated RBC % (auto) 0 % 06/10/21 04:04 Nucleated RBCs # 0.0 /100WBC 06/10/21 04:04 PT 21.10 SECONDS (12.1-14.9) H 06/07/21 13:38 INR 1.78 (0.8-1.2) H 06/07/21 13:38 APTT 40.8 SECONDS (23.9-36.7) H 06/07/21 13:38 D-Dimer 19.94 ug/mIFEU (0-0.59) H 06/09/21 10:28 Sodium 138 mmol/L (136-145) 06/10/21 04:04 Potassium 3.9 mmol/L (3.5-5.1) 06/10/21 04:04 Chloride 96 mmol/L (98-107) L 06/10/21 04:04 Carbon Dioxide 23 mmol/L (22-29) 06/10/21 04:04 Anion Gap 22.9 (5-19) H 06/10/21 04:04 BUN 34 mg/dL (6-20) H 06/10/21 04:04 Creatinine 6.6 mg/dL (0.7-1.2) H* 06/10/21 04:04 GFR Calculation 9.7 mL/min (90-130) L 06/10/21 04:04 Glucose 110 mg/dL (65-115) 06/10/21 04:04 Estimat Average Glucose 85 06/10/21 04:04 Hemoglobin A1c 4.6 % (4.0-6.0) 06/10/21 04:04 Calculated Osmolality 294 mOsm/kg (285-295) 06/10/21 04:04 Lactate 1.0 mmol/L (0.5-2.2) 06/07/21 13:38 Calcium 8.9 mg/dL (8.5-10.5) 06/10/21 04:04 Phosphorus 6.0 mg/dL (2.5-4.5) H 06/09/21 08:24 Iron 19 ug/dL (59-158) L 06/09/21 08:24 Iron Cancelled 06/09/21 08:24 TIBC 148 mcg/dl 06/09/21 08:24 % Saturation 12.8 % (20-50) L 06/09/21 08:24 Unsat Iron Binding 129 ug/dL (112-347) 06/09/21 08:24 Ferritin 810 ng/mL (30-400) H 06/09/21 08:24 Total Bilirubin 0.4 mg/dL (0.15-1.2) 06/10/21 04:04 AST 18 U/L (0-40) 06/10/21 04:04 ALT 12 U/L (0-41) 06/10/21 04:04 Alkaline Phosphatase 111 IU/L (40-130) 06/10/21 04:04 Creatine Kinase 46 U/L (39-308) 06/09/21 10:28 Troponin T Baseline 114 ng/L (0-15) H* 06/07/21 12:45 Troponin T 120 Minute 101.4 ng/L (0-15) H 06/07/21 15:30 Delta Troponin T -12.6 ABS# (0-10) L 06/07/21 15:30 Troponin T Hi Sens 6Hr 109.5 ng/L (0-15) H 06/07/21 18:50 Troponin T Hi Sens 6Hr Delta -4.5 ng/L (0-12) L 06/07/21 18:50 C-Reactive Protein 116.6 mg/L (0.0-4.9) H 06/09/21 10:28 NT-Pro-B Natriuret Pep > 58301 pg/mL (0-125) H 06/09/21 10:28 Total Protein 6.6 g/dL (6.6-8.7) 06/10/21 04:04 Albumin 3.6 g/dL (3.5-5.2) 06/10/21 04:04 Globulin 3.0 g/dL (1.3-4.6) 06/10/21 04:04 Triglycerides 146 mg/dL (0-150) 06/10/21 04:04 Cholesterol 107 mg/dL (0-200) 06/10/21 04:04 LDL Cholesterol, Calc 53 mg/dL (50-129) 06/10/21 04:04 Total VLDL Cholesterol 29 mg/dL (0-30) 06/10/21 04:04 HDL Cholesterol 25 mg/dL (60-100) L 06/10/21 04:04 Cholesterol/HDL Ratio 4.28 mg/dL (1.0-5.00) 06/10/21 04:04 Lipase 10 U/L (13-60) L 06/07/21 12:45 Vitamin B12 487 pg/mL (232-1245) 06/09/21 10:28 Folate 5.1 ng/mL (4.5-32.2) 06/09/21 10:28 Procalcitonin > 100.00 ng/mL (0-0.5) H 06/09/21 10:28 TSH 4.96 uIU/mL (0.27-4.20) H 06/09/21 10:28 Free T4 0.93 ng/dL (0.82-1.77) 06/09/21 10:28 Free T3 1.4 PG/ML (2.0-4.4) L 06/09/21 10:28 Vancomycin Trough 4.1 ug/mL (10-15) L 06/09/21 10:55 Urine Opiates Screen Negative ng/mL (Negative) 06/07/21 19:25 Ur Barbiturates Screen Negative ng/mL (Negative) 06/07/21 19:25 Ur Phencyclidine Scrn Negative ng/mL (Negative) 06/07/21 19:25 Ur Amphetamines Screen Negative ng/mL (Negative) 06/07/21 19:25 U Benzodiazepines Scrn Negative ng/mL (Negative) 06/07/21 19:25 Urine Cocaine Screen Negative ng/mL (Negative) 06/07/21 19:25 U Marijuana (THC) Screen Negative ng/mL (Negative) 06/07/21 19:25 Ethyl Alcohol < 10 mg/dL (0-10) 06/07/21 12:45 Coronavirus 229E (PCR) Not detected (NOT DETECT) 06/07/21 13:52 Hep Bs Antigen Non-reactive (Nonreactive) 06/07/21 12:45 Hep Bs Antibody 129.8 (11.5-1000) 06/07/21 12:45 Hepatitis C Antibody Non-reactive (Nonreactive) 06/07/21 12:45 HIV 1&2 Ab & HIV 1 Ag Non-reactive (Non-Reactiv) 06/09/21 10:28 HIV 1&2 Antibody Non-reactive (Non-Reactiv) 06/09/21 10:28 SARS-CoV-2 (PCR) Not detected (NOT DETECT) 06/07/21 13:52 Micro: Microbiology 06/09/21 10:28 Blood Culture - Preliminary Blood 06/09/21 10:25 Blood Culture - Preliminary Blood 06/07/21 13:40 Blood Culture - Final Blood Methicillin Resis Staph Aureus 06/07/21 13:38 Blood Culture - Final Blood Methicillin Resis Staph Aureus 06/07/21 17:22 Blood Culture - Preliminary Blood Methicillin Resis Staph Aureus 06/07/21 17:22 Blood Culture - Preliminary Blood Methicillin Resis Staph Aureus A&P Assessment and plan (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 May continue on the current management. Medication adjustments as per the infectious disease service Status: Acute (2) Staphylococcus aureus bacteremia: Patient has dialysis catheter infection. The lesions on the mitral and tricuspid valves appears to be vegetations. Status: Deleted (3) Severe mitral regurgitation: Patient has severe eccentric mitral regurgitation. Hemodynamically seems to be stable. He may benefit from surgical intervention, once infection is appropriately treated. Surgical consult would be appropriate. Status: Acute (4) Tricuspid regurgitation: Tricuspid irritation appears to be moderate to moderately severe. This also seems eccentric, most likely from the previous endocarditis Status: Acute (5) Hemodialysis catheter infection: Patient is planning to have the catheter removal tomorrow Status: Acute Qualifiers: Encounter type: subsequent encounter Qualified Code(s): T82.7XXD - Infection and inflammatory reaction due to other cardiac and vascular devices, implants and grafts, subsequent encounter (6) ESRD (end stage renal disease) on dialysis: Management as per the nephrology service Status: Acute Attestations Medical Necessity Statement*: Patient requires continued hospital stay for close monitoring and further management Coding Level of Care Code Acute Executive Associate for Glendy Fwsami History Detailed Exam Detailed Medical Decision Making Moderate Complexity Diagnoses Staphylococcus aureus bacteremia R78.81; B95.61 Hemodialysis catheter infection T82.7XXD Encounter type: subsequent encounter Severe mitral regurgitation I34.0 Tricuspid regurgitation I07.1 ESRD (end stage renal disease) on dialysis N18.6; Z99.2 Endocarditis due to Staphylococcus I33.0; B95.8
--- NOTE | 2021-06-10 17:40 | P.CONIM_ITS ---
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 Most recently he was admitted 6 to 7 months ago at an outside hospital for the same, HD catheter was removed and replaced, he completed 6 weeks of IV antibiotics, possibly vancomycin per his de scription which she received along side of dialysis. States he was told he has MRSA. Currently presented at [facility] on June 07 with chief complaints of having missed dialysis, being short of breath and having redness and swelling around the site of tunneled HD catheter insertion. He has an AV fistula in the left forearm but it appears this has not been functional in a long time. During course of evaluation he was found to have MRSA bacteremia with positive blood cultures on June 07. Thus far blood culture from June 09 is also showing gram-positive cocci in clusters. Additionally he has a swelling over his right wrist and forearm. He denies any IV drug use currently, states he last used IV drugs 10 years ago, however he does have some track mota at this present time. Uncertain if he may have injected into the site onto his right wrist prior to onset of his symptoms. Echocardiogram TTE performed on June 08, 2021 showed LVEF of 55%, concentric LVH, dilated right ventricle and moderately severe eccentric mitral regurgitation. A follow-up BALTAZAR was perfo rmed, final read is still awaited but per preliminary it appears he has a possible vegetation on both mitral and tricuspid valves. Denies any indwelling orthopedic hardware. Denies any past history of endocarditis or valve replacement. Tunneled HD catheter is planned to be removed today by general surgery. T-max 99.9 Fahrenheit since admission. Leukocytosis improving from 17-6.4 today. Current antibiotics include vancomycin , started 06/07, last trough 4.1 on 06/09 Medications/Allergies Home Medications Medication Instructions Recorded Confirmed Last Taken Type furosemide 80 mg tablet 80 mg PO BID 04/09/21 06/07/21 Unknown History hydralazine 100 mg tablet 100 mg PO TID 04/09/21 06/07/21 Unknown History minoxidil 10 mg tablet 5 mg PO DAILY 04/09/21 06/07/21 Unknown History pantoprazole 40 mg tablet,delayed 40 mg PO DAILY 04/09/21 06/07/21 Unknown History release vit B,C-folic ac 800 mcg-zinc 12.5 1 tab PO DAILY 04/09/21 06/07/21 Unknown History mg-selen-D3 2,000 unit-vit E tablet (RenaPlex-D) carvedilol 25 mg tablet 25 mg PO BID 06/07/21 06/07/21 Unknown History lactulose 10 gram/15 mL oral 30 ml PO DAILY PRN 06/07/21 06/07/21 Unknown History solution (Generlac) nifedipine 90 mg tablet,extended 90 mg PO DAILY 06/07/21 06/07/21 Unknown History release Allergies Allergy/AdvReac Type Severity Reaction Status Date / Time strawberry Allergy Mild ALGY-Rash Unverified 06/07/21 16:24 Current Medications Generic Name Dose Route Start Last Admin Trade Name Bess PRN Reason Stop Dose Admin Acetaminophen 650 mg 06/07/21 16:38 06/08/21 19:51 Acetaminophen 325 Mg Tablet PO 650 mg Q6H PRN Administration Mild/Mod Pain Or Temp >/= 101 Clonidine HCl 1 patch 06/10/21 10:00 06/10/21 11:44 Clonidine 0.1 Mg/24 Hr Patch TRANSDERMA 1 patch Q7D VASHTI Administration Ferrous Gluconate 324 mg 06/10/21 18:00 06/10/21 17:37 Ferrous Gluconate 324 Mg Tablet PO 324 mg BIDWM VASHTI Administration Furosemide 60 mg 06/09/21 10:00 06/10/21 11:44 Furosemide 10 Mg/Ml Sdv 10ml IVP 60 mg Q12H VASHTI Administration Heparin Sodium (Porcine) 5,000 unit 06/08/21 20:00 06/10/21 08:30 Heparin 5,000 Unit/Ml Inj 1 Ml SUBCUT 5,000 unit Q12H VASHTI Administration Hydralazine HCl 100 mg 06/07/21 21:00 06/10/21 14:37 Hydralazine 50 Mg Tablet PO 100 mg TID VASHTI Administration Piperacillin Sod/Tazobactam 50 mls @ 12.5 mls/hr 06/08/21 02:00 06/10/21 14:40 Sod 3.375 gm/ Sodium Chloride IV 12.5 mls/hr Q12H VASHTI Administration Protocol Vancomycin HCl 1,000 mg/ 250 mls @ 250 mls/hr 06/09/21 17:00 06/10/21 06:20 Sodium Chloride IV Infused Q48H VASHTI Infusion Minoxidil 5 mg 06/07/21 21:00 06/10/21 08:28 Minoxidil 10 Mg Tablet PO 5 mg DAILY VASHTI Administration Nifedipine 90 mg 06/08/21 09:00 06/10/21 08:30 Nifedipine Er (24 Hr) 30 Mg Tablet PO 90 mg DAILY VASHTI Administration Ondansetron HCl 4 mg 06/07/21 16:38 06/08/21 20:32 Ondansetron 2 Mg/Ml Sdv 2 Ml IVP 4 mg Q8H PRN Administration vomiting, or N/V if npo Pantoprazole Sodium 40 mg 06/08/21 09:00 06/10/21 08:[address] 40 Mg Tablet PO 40 mg DAILY VASHTI Administration PFSH Acute PFSH: Medical History (Updated 06/10/21 @ 17:54 by Alvina Anderson MD) Alport syndrome Dialysis AV fistula malfunction Diastolic heart failure Hemodialysis catheter infection HTN (hypertension) MRSA bacteremia Surgical History Fistula Left forearm S/P hemodialysis catheter insertion Multiple Status post dialysis Family History Other ESRD (end stage renal disease) Social History Smoking and tobacco status: never smoked Alcohol intake: never Substance/Drug Use: former Other details last substance use: Marijuana. Denies any other. Denies IVDU. 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 Data : 06/10/21 04:04 06/10/21 04:04 Micro: Microbiology 06/09/21 10:28 Blood Culture - Preliminary Blood 06/09/21 10:25 Blood Culture - Preliminary Blood 06/07/21 13:40 Blood Culture - Final Blood Methicillin Resis Staph Aureus 06/07/21 13:38 Blood Culture - Final Blood Methicillin Resis Staph Aureus 06/07/21 17:22 Blood Culture - Preliminary Blood Methicillin Resis Staph Aureus 06/07/21 17:22 Blood Culture - Preliminary Blood Methicillin Resis Staph Aureus M.I.C. RX --------- ------ * Ampicillin >8 R * Ciprofloxacin 2 I * Clindamycin <=0.5 S * Erythromycin >4 R * Gentamicin <=4 S * Levofloxacin <=1 S * Linezolid 4 S * Oxacillin >2 R * Penicillin >8 R * Rifampin <=1 S * Tetracycline <=4 S * Trimethoprim/Sulfamethoxazole <=0.5/9.5 S Vancomycin 2 S Daptomycin 1 S Other data: Radiology Impressions Abdomen/Pelvis CT 06/07/21 13:15 IMPRESSION: 1. Cardiomegaly. 2. Bilateral atrophic kidneys. 3. There is a large amount of ascites and soft tissue anasarca. This can be seen with congestive heart failure or renal failure. Chest X-Ray 06/07/21 13:15 IMPRESSION: 1. Cardiomegaly. 2. Ill-defined density overlying the mid to lower left lung field is nonspecific and may represent overlying structures. Chest CT 06/08/21 08:11 IMPRESSION: 1. Cardiomegaly. Bilateral pulmonary ground-glass opacities in this patient may represent pulmonary edema and/or pneumonia. 2. There is soft tissue anasarca and ascites in the upper abdomen. Forearm X-Ray 06/08/21 13:10 IMPRESSION: No acute findings. Venous Duplex 06/09/21 10:53 IMPRESSION: 1. No evidence of deep vein thrombosis. 2. There is no arterialized flow in any of the veins visualized in the left upper extremity. This suggests that the previous AV fistula is occluded. Soft Tissue Ultrasound 06/09/21 10:56 IMPRESSION: 1. 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 This likely accounts for the patient's pulsatile palpable abnormality. 2. No patent arteriovenous fistula identified. Pulmonary Perfusion Imaging 06/09/21 13:23 IMPRESSION: Low probability pulmonary embolism. Laboratory Results WBC 6.4 10^3/uL (4.0-10.0) 06/10/21 04:04 RBC 3.03 10^6/uL (4.1-5.3) L 06/10/21 04:04 Hgb 8.2 g/dL (11.7-16.6) L 06/10/21 04:04 Hct 26.9 % (42.0-52.0) L 06/10/21 04:04 MCV 88.8 fl (80-94) 06/10/21 04:04 MCH 27.1 pg (28.0-34.0) L 06/10/21 04:04 MCHC 30.5 g/dL (30.0-36.0) 06/10/21 04:04 RDW 18.4 % (12.1-15.1) H 06/10/21 04:04 Plt Count 215 10^3/cmm (130-400) 06/10/21 04:04 MPV 11.5 fL (7.4-10.4) H 06/10/21 04:04 Neut % (Auto) 74.9 % 06/10/21 04:04 Lymph % (Auto) 10.3 % 06/10/21 04:04 Bond % (Auto) 10.9 % 06/10/21 04:04 Eos % (Auto) 2.7 % 06/10/21 04:04 Baso % (Auto) 0.6 % 06/10/21 04:04 Neut # (Auto) 4.79 10^3/uL (1.8-7.7) 06/10/21 04:04 Lymph # (Auto) 0.7 10^3/uL (0.8-4.8) L 06/10/21 04:04 Bond # (Auto) 0.7 10^3/uL (0.2-0.9) 06/10/21 04:04 Eos # (Auto) 0.2 10^3/uL (0.0-0.8) 06/10/21 04:04 Baso # (Auto) 0.0 10^3/uL (0.0-0.1) 06/10/21 04:04 Nucleated RBC % (auto) 0 % 06/10/21 04:04 Nucleated RBCs # 0.0 /100WBC 06/10/21 04:04 PT 21.10 SECONDS (12.1-14.9) H 06/07/21 13:38 INR 1.78 (0.8-1.2) H 06/07/21 13:38 APTT 40.8 SECONDS (23.9-36.7) H 06/07/21 13:38 D-Dimer 19.94 ug/mIFEU (0-0.59) H 06/09/21 10:28 Sodium 138 mmol/L (136-145) 06/10/21 04:04 Potassium 3.9 mmol/L (3.5-5.1) 06/10/21 04:04 Chloride 96 mmol/L (98-107) L 06/10/21 04:04 Carbon Dioxide 23 mmol/L (22-29) 06/10/21 04:04 Anion Gap 22.9 (5-19) H 06/10/21 04:04 BUN 34 mg/dL (6-20) H 06/10/21 04:04 Creatinine 6.6 mg/dL (0.7-1.2) H* 06/10/21 04:04 GFR Calculation 9.7 mL/min (90-130) L 06/10/21 04:04 Glucose 110 mg/dL (65-115) 06/10/21 04:04 Estimat Average Glucose 85 06/10/21 04:04 Hemoglobin A1c 4.6 % (4.0-6.0) 06/10/21 04:04 Calculated Osmolality 294 mOsm/kg (285-295) 06/10/21 04:04 Lactate 1.0 mmol/L (0.5-2.2) 06/07/21 13:38 Calcium 8.9 mg/dL (8.5-10.5) 06/10/21 04:04 Phosphorus 6.0 mg/dL (2.5-4.5) H 06/09/21 08:24 Iron 19 ug/dL (59-158) L 06/09/21 08:24 Iron Cancelled 06/09/21 08:24 TIBC 148 mcg/dl 06/09/21 08:24 % Saturation 12.8 % (20-50) L 06/09/21 08:24 Unsat Iron Binding 129 ug/dL (112-347) 06/09/21 08:24 Ferritin 810 ng/mL (30-400) H 06/09/21 08:24 Total Bilirubin 0.4 mg/dL (0.15-1.2) 06/10/21 04:04 AST 18 U/L (0-40) 06/10/21 04:04 ALT 12 U/L (0-41) 06/10/21 04:04 Alkaline Phosphatase 111 IU/L (40-130) 06/10/21 04:04 Creatine Kinase 46 U/L (39-308) 06/09/21 10:28 Troponin T Baseline 114 ng/L (0-15) H* 06/07/21 12:45 Troponin T 120 Minute 101.4 ng/L (0-15) H 06/07/21 15:30 Delta Troponin T -12.6 ABS# (0-10) L 06/07/21 15:30 Troponin T Hi Sens 6Hr 109.5 ng/L (0-15) H 06/07/21 18:50 Troponin T Hi Sens 6Hr Delta -4.5 ng/L (0-12) L 06/07/21 18:50 C-Reactive Protein 116.6 mg/L (0.0-4.9) H 06/09/21 10:28 NT-Pro-B Natriuret Pep > 17402 pg/mL (0-125) H 06/09/21 10:28 Total Protein 6.6 g/dL (6.6-8.7) 06/10/21 04:04 Albumin 3.6 g/dL (3.5-5.2) 06/10/21 04:04 Globulin 3.0 g/dL (1.3-4.6) 06/10/21 04:04 Triglycerides 146 mg/dL (0-150) 06/10/21 04:04 Cholesterol 107 mg/dL (0-200) 06/10/21 04:04 LDL Cholesterol, Calc 53 mg/dL (50-129) 06/10/21 04:04 Total VLDL Cholesterol 29 mg/dL (0-30) 06/10/21 04:04 HDL Cholesterol 25 mg/dL (60-100) L 06/10/21 04:04 Cholesterol/HDL Ratio 4.28 mg/dL (1.0-5.00) 06/10/21 04:04 Lipase 10 U/L (13-60) L 06/07/21 12:45 Vitamin B12 487 pg/mL (232-1245) 06/09/21 10:28 Folate 5.1 ng/mL (4.5-32.2) 06/09/21 10:28 Procalcitonin > 100.00 ng/mL (0-0.5) H 06/09/21 10:28 TSH 4.96 uIU/mL (0.27-4.20) H 06/09/21 10:28 Free T4 0.93 ng/dL (0.82-1.77) 06/09/21 10:28 Free T3 1.4 PG/ML (2.0-4.4) L 06/09/21 10:28 Vancomycin Trough 4.1 ug/mL (10-15) L 06/09/21 10:55 Urine Opiates Screen Negative ng/mL (Negative) 06/07/21 19:25 Ur Barbiturates Screen Negative ng/mL (Negative) 06/07/21 19:25 Ur Phencyclidine Scrn Negative ng/mL (Negative) 06/07/21 19:25 Ur Amphetamines Screen Negative ng/mL (Negative) 06/07/21 19:25 U Benzodiazepines Scrn Negative ng/mL (Negative) 06/07/21 19:25 Urine Cocaine Screen Negative ng/mL (Negative) 06/07/21 19:25 U Marijuana (THC) Screen Negative ng/mL (Negative) 06/07/21 19:25 Ethyl Alcohol < 10 mg/dL (0-10) 06/07/21 12:45 Coronavirus 229E (PCR) Not detected (NOT DETECT) 06/07/21 13:52 Hep Bs Antigen Non-reactive (Nonreactive) 06/07/21 12:45 Hep Bs Antibody 129.8 (11.5-1000) 06/07/21 12:45 Hepatitis C Antibody Non-reactive (Nonreactive) 06/07/21 12:45 HIV 1&2 Ab & HIV 1 Ag Non-reactive (Non-Reactiv) 06/09/21 10:28 HIV 1&2 Antibody Non-reactive (Non-Reactiv) 06/09/21 10:28 SARS-CoV-2 (PCR) Not detected (NOT DETECT) 06/07/21 13:52 A&P Assessment and plan (1) 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 (2) Moderate to severe mitral regurgitation: Status: Acute (3) Right forearm pain: Status: Acute (4) Hemodialysis catheter infection: Status: Acute Qualifiers: Encounter type: subsequent encounter Qualified Code(s): T82.7XXD - Infection and inflammatory reaction due to other cardiac and vascular devices, implants and grafts, subsequent encounter Plan 35-year-old male with end-stage renal disease currently on hemodialysis presenting with missed dialysis, pulmonary edema, discharge from tunneled HD sit e, found to have MRSA bacteremia and preliminary TTE and BALTAZAR results with possibility of endocarditis. #Positive blood cultures thus far on 122, prelim from 124 additionally reported as positive for GPC's. Repeat blood culture with a.m. labs. Discontinue piperacillin tazobactam as chest findings appear more likely to be pulmonary edema rather than pneumonia. Patient is saturating well, 97% on room air, denies any complains of cough or expectoration. Continue vancomycin, thus far was dosed with dialysis, however now with removal of HD catheter planned will dose for creatinine clearance less than 15. Check random vancomycin level in the morning. Agree will removal of tunneled HD catheter. Will need a temporary HD access in the interim with long-term plan switch to likely peritoneal dialysis. Patient also reports a past history of recurrent HD catheter associated infections, most recently taken out 8 to 9 months ago at outside hospital. Patient states that he was originally planned for 5 to 6 months of antibiotic course, however then later it was discontinued at 6-week nino. I am uncertain if he had endocarditis diagnosed at that time and if there there were plans to continue p.o. antibiotics after a course of IV or not. We will try to obtain records. Currently BALTAZAR with suspicious vegetations on mitral and tricuspid valves, awaiting final results. Significant mitral regurgitation is noted. Concern additionally for noted right arm and wrist swelling. Concern for underlying abscess versus pyomyositis versus septic wrist joint at the site. Soft tissue ultrasound performed earlier during course of admission had revealed a pseudoaneurysm, however with area looking red warm erythematous and and with exquisite tenderness I am concerned for underlying infection at this site. MRI was attempted but patient was unable to complete the study due to inability to lie still. Will obtain CT with contrast today. 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
[2021-06-10] MEDS: oxyCODONE-APAP 5-325 mg Tablet 1 TAB PO (18:23)
[2021-06-10] MEDS: carvedilol 25 mg Tablet PO (20:03)
--- NOTE | 2021-06-10 21:31 | PC.NURSE ---
Late note: at 1200, patient had not yet urinated. Patient states that he still produces urine and urinates at home in addition to dialysis. Nurse bladder scanned patient and it shows 999+ retained. However, patient has ascites and this may give falsely high bladder scan readings. Nurse alerted Dr weeks to this. REceived an order for vyas catheter. Nurse inserted vyas. only had 15 mL of return.
--- NOTE | 2021-06-10 21:35 | PC.NURSE ---
Shift Summary: uneventful shift. Patient rested in bed for most of the day, but was occasionally walking in room. Patient was taken to surgery for his hemodialysis catheter removal. Surgery was uneventful. 100 mL of urine output during shift.
--- NOTE | 2021-06-10 21:40 | PC.NURSE ---
Taking patient to CT per wheel chair
[2021-06-10] MEDS: iohexol 300 mg/mL 100 mL Btl IV (21:53)
--- NOTE | 2021-06-10 22:04 | PC.NURSE ---
Pt. returned to room. Tolerated CT well. No needs identified at this time.
[2021-06-11] VITALS (86 sets, daily range): BP systolic 118–188; BP diastolic 70–112; PULSE 66–105; RESP 14–24; TEMP 36.3–37.2; O2SAT 87–98
[2021-06-11 03:48] LABS: Basophils # 0.1 10^3/uL (0.0-0.1); Basophils % 0.8 %; Eosinophils # 0.2 10^3/uL (0.0-0.8); Eosinophils % 2.7 %; Hematocrit 27.2 % (42.0-52.0); Hemoglobin 8.5 g/dL (11.7-16.6); Mean Corpuscular HGB Conc 31.3 g/dL (30.0-36.0); Mean Corpuscular Hemoglobin 26.6 pg (28.0-34.0); Mean Platelet Volume 11.1 fL (7.4-10.4); Monocytes % 12.4 %; Neutrophils # 5.52 10^3/uL (1.8-7.7); Neutrophils % 70.5 %; Nucleated Red Blood Cells % 0 %; Platelet Count 220 10^3/cmm (130-400); Red Cell Distribution Width 18.3 % (12.1-15.1); White Blood Count 7.8 10^3/uL (4.0-10.0)
[2021-06-11 04:13] LABS: Alanine Aminotransferase 11 U/L (0-41); Albumin Level 3.4 g/dL (3.5-5.2); Alkaline Phosphatase 119 IU/L (40-130); Anion Gap 22.6 (5-19); Aspartate Amino Transferase 13 U/L (0-40); Blood Urea Nitrogen 45 mg/dL (6-20); Carbon Dioxide 21 mmol/L (22-29); Chloride 96 mmol/L (98-107); Globulin 2.9 g/dL (1.3-4.6); Glomerular Filtration Rate 7.2 mL/min (90-130); Glucose 94 mg/dL (65-115); Magnesium 1.8 mg/dL (1.7-2.3); Osmolality Calculated 291 mOsm/kg (285-295); Phosphorus 3.9 mg/dL (2.5-4.5); Potassium 4.6 mmol/L (3.5-5.1); Sodium 135 mmol/L (136-145); Total Bilirubin 0.4 mg/dL (0.15-1.2); Total Protein 6.3 g/dL (6.6-8.7)
[2021-06-11 04:19] LABS: Vancomycin Random 23.5 ug/mL (20.0-40.0)
[2021-06-11 04:51] LABS: Parathyroid Hormone 169.9 pg/mL (15-65)
[2021-06-11] MEDS: oxyCODONE-APAP 5-325 mg Tablet 1 TAB PO ×2 (06:00→20:07)
--- NOTE | 2021-06-11 09:10 | P.PN_ITS ---
Subjective Subjective: Interval history: feels better. has leg edema. no n/v/f/c/dunaway/d Vitals/I&O/Wt Last Vital Signs Temp 97.6 F 06/11/21 05:00 Pulse 82 06/11/21 06:00 Resp 20 H 06/11/21 06:00 BP 165/83 06/11/21 05:00 Pulse Ox 95 06/10/21 22:05 06/10/21 06/11/21 06/11/21 22:59 06:59 14:59 Intake Total 560 / 1262 Output Total 100 / 100 Balance 460 / 1162 Weight last 48 hrs Weight 69.4 kg Weight 94.801 kg Physical Exam Narrative: EXAM NARRATIVE: in bed in icu, vs noted - bp elevated heent- nc/at, eomi, anicteric neck supple lung cta b/l heart reg, +XIMENA abd soft, nt, nd, + bs ext leg edema LUE AVF neuro- a,a, o x 3 permacath removed Urinary Catheter Management: Blue: Cath Placed During This Visit: yes Reason for Continuing Indwelling Catheter: Accurate Measurement of Urinary Output in Critically Ill Patients Urinary Catheter Date of Insertion: 06/10/21 Urinary Catheter Time of Insertion: 16:10 Data : 06/11/21 03:05 06/11/21 03:05 Micro: Microbiology 06/11/21 03:05 Blood Culture - Preliminary Blood SPECIMEN COLLECTED 06/11/21 03:05 Blood Culture - Preliminary Blood SPECIMEN COLLECTED 06/09/21 10:28 Blood Culture - Preliminary Blood 06/09/21 10:25 Blood Culture - Preliminary Blood 06/07/21 13:40 Blood Culture - Final Blood Methicillin Resis Staph Aureus 06/07/21 13:38 Blood Culture - Final Blood Methicillin Resis Staph Aureus 06/07/21 17:22 Blood Culture - Preliminary Blood Methicillin Resis Staph Aureus 06/07/21 17:22 Blood Culture - Preliminary Blood Methicillin Resis Staph Aureus A&P Assessment and plan (1) ESRD (end stage renal disease) on dialysis: Seen via telehealth with assistance of RN at bedside 1. ESRD - permacath removed. carl tomorrow or wednesday 2. staph aureus bacteremia- renal dose abx -keep vanco trough under 20 -+ endocarditis Mitral and tricuspod valves -would consider PD for long term acute care registered nurse 3. Anemia, Hb 8.5-. epogen mwf -no iv iron w/ bacteremia 4. MR/ TR per cardiology 5. Hypertension- wean down meds 6. BASSAM per medicine seen and examined w/ RN- telehealth visit time spent . 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
[2021-06-11] MEDS: minoxidil 10 mg Tablet 5 MG PO (10:04)
[2021-06-11] MEDS: ferrous gluconate 324 mg Tablet PO (10:04)
[2021-06-11] MEDS: NIFEdipine ER (24 hr) 30 mg Tablet 90 MG PO (10:05)
[2021-06-11] MEDS: carvedilol 25 mg Tablet PO ×2 (10:05→21:46)
[2021-06-11] MEDS: hyDRALAzine 50 mg Tablet 100 MG PO ×2 (10:05→21:46)
--- NOTE | 2021-06-11 10:06 | PM.PN ---
Subjective Subjective: Interval history: No acute events overnight. Blood pressure better controlled. On examination patient lying comfortably in bed, sleeping. Wakes up to physical and verbal cue. Able to have complete conversation. Denies any nausea, vomiting, headache. Has remained calm without any agitation overnight. Urine output not documented. CT scan result of the forearm discussed in detail. Discussed in detail regarding need of possible drainage. Patient verbalized understanding. Medications: Reviewed: Yes Vitals/I&O/Wt Last Vital Signs Temp 97.6 F 06/11/21 05:00 Pulse 82 06/11/21 06:00 Resp 20 H 06/11/21 06:00 BP 165/83 06/11/21 05:00 Pulse Ox 95 06/10/21 22:05 06/10/21 06/11/21 06/11/21 22:59 06:59 14:59 Intake Total 560 / 1262 Output Total 100 / 100 Balance 460 / 1162 Weight last 48 hrs Weight 69.4 kg Weight 94.801 kg Physical Exam Const: COMMON NORMALS: no acute distress, patient oriented x3 and alert GENERAL APPEARANCE: cooperative ORIENTATION/CONSCIOUSNESS: Yes awake OTHER: Very FOND [place] LAC. HENMT: COMMON NORMALS: oropharynx normal Neck/C-Spine: COMMON NORMALS: no JVD Chest: OTHER: R chest tunneled catheter, currently do not appreciate erythema or drainage from the access site or significant swelling Resp: COMMON NORMALS: normal respiratory effort and clear to auscultation bilaterally AUSCULTATION: clear to auscultation bilaterally Cardio: COMMON NORMALS: no JVD, regular rhythm, S1 normal heart sound present, S2 normal heart sound present and No murmurs present (Cardio) RHYTHM: regular rhythm HEART SOUNDS: S1 normal heart sound present and S2 normal heart sound present GI: COMMON NORMALS: Normal to inspection, nondistended, normoactive bowel sounds present and Soft to palpation INSPECTION: Yes abdominal distension PALPATION: Yes Soft to palpation and Yes Tenderness to palpation present (GI) (Mild-moderate nonlocalized, reports chronic) Extremity: COMMON NORMALS: no joint enlargement and no pedal edema OTHER: Left forearm fistula, without any thrill, R forearm mildly swollen compared to L. Moving fingers, but difficulty with product assembler apart from adducting thumb. No loss of sensation or paresthesia. Warm and perfused. Neuro: COMMON NORMALS: patient oriented x3 and moves all extremities SENSORIUM/ORIENTATION: Yes alert Skin: COMMON NORMALS: no rashes or lesions noted GENERAL SKIN EXAM: no rashes or lesions noted OTHER: Diffuse excoriated lesions on face, LE, he states started after strawberry allergy Urinary Catheter Management: Blue: Cath Placed During This Visit: yes Reason for Continuing Indwelling Catheter: Accurate Measurement of Urinary Output in Critically Ill Patients Urinary Catheter Date of Insertion: 06/10/21 Urinary Catheter Time of Insertion: 16:10 Data : 06/11/21 03:05 06/11/21 03:05 Micro: Microbiology 06/11/21 03:05 Blood Culture - Preliminary Blood SPECIMEN COLLECTED 06/11/21 03:05 Blood Culture - Preliminary Blood SPECIMEN COLLECTED 06/09/21 10:28 Blood Culture - Preliminary Blood 06/09/21 10:25 Blood Culture - Preliminary Blood 06/07/21 13:40 Blood Culture - Final Blood Methicillin Resis Staph Aureus 06/07/21 13:38 Blood Culture - Final Blood Methicillin Resis Staph Aureus 06/07/21 17:22 Blood Culture - Preliminary Blood Methicillin Resis Staph Aureus 06/07/21 17:22 Blood Culture - Preliminary Blood Methicillin Resis Staph Aureus A&P Assessment and plan (1) 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 Most likely secondary to infective endocarditis. Given extensive mitral regurgitation patient will most likely need a mitral clipping versus mitral valve replacement going forward once infective endocarditis clears up or sooner if he continues to remain persistently bacteremic. Status: Acute (6) Hypoxia: Status: Acute (7) Diastolic heart failure: Status: Acute (8) Dialysis patient, noncompliant: Status: Acute (9) HTN (hypertension): Status: Acute (10) Cardiomegaly: Status: Acute (11) LVH (left ventricular hypertrophy): With history of hypertension. Not adherent with hemodialysis. I am not not certain that he is adherent with his medications at home. Continue HTN medicines. Aspirin, beta-lucas. Stress test when able. Unclear benefit of statin in setting of ESRD on dialysis. Status: Acute (12) Severe tricuspid regurgitation: Status: Acute (13) Ascites: Most likely from diastolic heart failure. Seems to be improving with regular dialysis. Check hepatitis panel, HIV. Status: Acute (14) Right forearm pain: Secondary to right forearm abscess as seen on CT scan. Status: Acute (15) Acute hyperkalemia: Resolved. On hemodialysis. Check daily BMP. 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 Most likely secondary to IV drug abuse. ED results consistent with echogenic density seen on posterior mitral leaflet, posterior tricuspid valve measuring 1 to 0.5 cm in size suggestive of endocarditis. Blood cultures from 06/09 also positive. Repeat blood cultures sent today Appreciate ID, surgical and nephrology recommendations. HD catheter removed 06/10. Trying to give line holiday. We will place [facility] when hemodialysis needed. If blood cultures remain negative can go for peritoneal dialysis early next week. For now continue with vancomycin. Continue to check vancomycin random level daily for now. Target levels 15-20. Dose vancomycin accordingly. We will consult orthopedics for I&D versus drain for right forearm abscess. CKD: Appreciate nephrology recommendations. Plan for line holiday. Removal of HD catheter. Long-term peritoneal dialysis. Peritoneal dialysis catheter hopeful to be placed early next week if blood cultures cleared up by then. Monitor BMP daily. Hyperkalemia seems to be resolved. Hypoxia: COVID-19 PCR negative.? Most likely secondary to congestive diastolic heart failure. Perfusion study low probability for PE. Hemodialysis with negative fluid balance. Continue with Lasix to 60 mg IV every 12 hourly. Monitor strict input output charting. Hypertension: Goal blood pressure less than 140/90 mmHg. Blood pressure better controlled. Continue with home dose of hydralazine, nifedipine. Continue with Coreg 25 mg twice daily and clonidine 0.1 mg patch. Full code. Dialysis regular diet. Protonix for PUD prophylaxis. Heparin for DVT prophylaxis. Guarded prognosis. Discharge planning: Will most likely need IV antibiotics for 6 weeks once blood cultures clear up. Most likely will need placement for IV antibiotics given history of drug abuse will be difficult to send patient out with a PICC line. Will consult case management. Patient will also need new peritoneal dialysis catheter teaching before discharge and also set up as an outpatient. Attestations Medical Necessity Statement*: Requires further hospitalization for MRSA endocarditis, right forearm abscess, persistent MRSA bacteremia, CKD requiring hemodialysis Critical Care Time: The high probability of a clinically significant, sudden or life threatening deterioration of the patient's [ID, renal system(s) required my full and direct attention, intervention and personal management. The critical care time is as shown. 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
[2021-06-11] MEDS: pantoprazole DR 40 mg Tablet PO (10:07)
[2021-06-11] MEDS: FUROsemide 10 mg/mL SDV 10mL 60 MG IVP ×2 (10:08→21:46)
[2021-06-11] MEDS: acetaminophen 325 mg Tablet 650 MG PO (10:10)
[2021-06-11] MEDS: heparin 5,000 unit/mL INJ 1 mL 5000 UNIT SUBCUT ×2 (10:12→20:08)
--- NOTE | 2021-06-11 10:39 | PC.CHAP ---
Pastoral Care Encounter/Spiritual Assessment Type of Contact [] Declined lapping machine operator visit [] Patient/Family/Request visit [] Outpatient visit [] Follow-up visit [] Physician referral [] Code/Alert [x] Routine visit [] Staff referral [] Actively dying [] Patient sleeping [] Family support [] [] Out of room [] Palliative care [] [x] Receiving care in room [] Pre-surgical visit [] Trauma [] Long length of stay [x] ICU visit [x] Other: staff states best patient ever!!!! Relational/Emotional Strength [] Patient feels connected with others/family/visitors/staff [] Distress [] Loneliness/isolation [] Abandonment Spirituality of Patient [] Person of Ilda [] Attends Evangelical of their Ilda [] Believes in Prayer [] Reads Bible or Bahai materials [] There are Spiritual issues to be addressed Ion Exchange Operator Interventions [x] Prayer [] Active listening [] Non-anxious presence [] Spiritual/emotional support [] Crisis/trauma care [] Spiritual counseling [] Bereavement support [] Provided bereavement packet [] Provided Bible/devotional materials [] Provided toy/stuffed animal, coloring book to patient or family member [] Provided Communion [] Anointing/[place] [] Salvation [x] Completed spiritual assessment [] Other: Impact on Illness or Injury [] Angry [] Fearful [] Anxious [] Often cries [] Exhaustion [] Unable to work [] Unable to attend jew [] Unable to walk/stand [] Unable to read [] Unable to drive [] Unable to eat/drink [] Unable to sleep [] Unable to be with family [] Patient intubated [] Other: Summary Time spent with patient
--- NOTE | 2021-06-11 12:54 | PM.CONSULT ---
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 Most recently he was admitted 6 to 7 months ago at an outside hospital for the same, HD catheter was removed and replaced, he completed 6 weeks of IV antibiotics, possibly vancomycin per his description which she received along side of dialysis.? States he was told he has MRSA.? Currently presented at [facility] on June 07 with chief complaints of having missed dialysis, being short of breath and having redness and swelling around the site of tunneled HD catheter insertion.? He has an AV fistula in the left forearm but it appears this has not been functional in a long time.? During course of evaluation he was found to have MRSA bacteremia with positive blood cultures on June 07.? Thus far blood culture from June 09 is also showing gram-positive cocci in clusters.? Additionally he has a swelling over his right wrist and forearm.? He denies any IV drug use currently, states he last used IV drugs 10 years ago, however he does have some track mota at this present time.? Uncertain if he may have injected into the site onto his right wrist prior to onset of his symptoms.? Echocardiogram TTE performed on June 08, 2021 showed LVEF of 55%, concentric LVH, dilated right ventricle and moderately severe eccentric mitral regurgitation.? A follow-up BALTAZAR was performed, final read is still awaited but per preliminary it appears he has a possible vegetation on both mitral and tricuspid valves.? Denies any indwelling orthopedic hardware.? Denies any past history of endocarditis or valve replacement.?? Review of Systems Const: Reports: fever(s) (Occasional low-grade) GI: Reports: abdominal pain Medications/Allergies Home Medications Medication Instructions Recorded Confirmed Last Taken Type furosemide 80 mg tablet 80 mg PO BID 04/09/21 06/07/21 Unknown History hydralazine 100 mg tablet 100 mg PO TID 04/09/21 06/07/21 Unknown History minoxidil 10 mg tablet 5 mg PO DAILY 04/09/21 06/07/21 Unknown History pantoprazole 40 mg tablet,delayed 40 mg PO DAILY 04/09/21 06/07/21 Unknown History release vit B,C-folic ac 800 mcg-zinc 12.5 1 tab PO DAILY 04/09/21 06/07/21 Unknown History mg-selen-D3 2,000 unit-vit E tablet (RenaPlex-D) carvedilol 25 mg tablet 25 mg PO BID 06/07/21 06/07/21 Unknown History lactulose 10 gram/15 mL oral 30 ml PO DAILY PRN 06/07/21 06/07/21 Unknown History solution (Generlac) nifedipine 90 mg tablet,extended 90 mg PO DAILY 06/07/21 06/07/21 Unknown History release Allergies Allergy/AdvReac Type Severity Reaction Status Date / Time strawberry Allergy Mild ALGY-Rash Unverified 06/07/21 16:24 Current Medications Generic Name Dose Route Start Last Admin Trade Name Freq PRN Reason Stop Dose Admin Acetaminophen 650 mg 06/07/21 16:38 06/11/21 10:10 Acetaminophen 325 Mg Tablet PO 650 mg Q6H PRN Administration Mild/Mod Pain Or Temp >/= 101 Carvedilol 25 mg 06/10/21 21:00 06/11/21 10:05 Carvedilol 25 Mg Tablet PO 25 mg BID@0900,2100 VASHTI Administration Clonidine HCl 1 patch 06/10/21 10:00 06/10/21 11:44 Clonidine 0.1 Mg/24 Hr Patch TRANSDERMA 1 patch Q7D VASHTI Administration Ferrous Gluconate 324 mg 06/10/21 18:00 06/11/21 10:04 Ferrous Gluconate 324 Mg Tablet PO 324 mg BIDWM VASHTI Administration Furosemide 60 mg 06/09/21 10:00 06/11/21 10:08 Furosemide 10 Mg/Ml Sdv 10ml IVP 60 mg Q12H VASHTI Administration Heparin Sodium (Porcine) 5,000 unit 06/08/21 20:00 06/11/21 10:12 Heparin 5,000 Unit/Ml Inj 1 Ml SUBCUT 5,000 unit Q12H VASHTI Administration Hydralazine HCl 100 mg 06/07/21 21:00 06/11/21 10:05 Hydralazine 50 Mg Tablet PO 100 mg TID VASHTI Administration Vancomycin HCl 1,000 mg/ 250 mls @ 250 mls/hr 06/09/21 17:00 06/10/21 06:20 Sodium Chloride IV Infused Q48H VASHTI Infusion Minoxidil 5 mg 06/07/21 21:00 06/11/21 10:04 Minoxidil 10 Mg Tablet PO 5 mg DAILY VASHTI Administration Nifedipine 90 mg 06/08/21 09:00 06/11/21 10:05 Nifedipine Er (24 Hr) 30 Mg Tablet PO 90 mg DAILY VASHTI Administration Ondansetron HCl 4 mg 06/07/21 16:38 06/08/21 20:32 Ondansetron 2 Mg/Ml Sdv 2 Ml IVP 4 mg Q8H PRN Administration vomiting, or N/V if npo Oxycodone/Acetaminophen 1 tab 06/09/21 16:07 06/11/21 06:00 Oxycodone-Apap 5-325 Mg Tablet PO 1 tab Q6H PRN Administration MODERATE PAIN Pantoprazole Sodium 40 mg 06/08/21 09:00 06/11/21 10:[address] 40 Mg Tablet PO 40 mg DAILY VASHTI Administration PFSH Acute PFSH: Medical History (Updated 06/11/21 @ 13:00 by Jasbir Coelho DO) Alport syndrome Dialysis AV fistula malfunction Diastolic heart failure Hemodialysis catheter infection HTN (hypertension) MRSA bacteremia Surgical History Fistula Left forearm S/P hemodialysis catheter insertion Multiple Status post dialysis Family History Other ESRD (end stage renal disease) Social History Smoking and tobacco status: never smoked Alcohol intake: never Substance/Drug Use: former Other details last substance use: Marijuana. Denies any other. Denies IVDU. Lives independently: Yes Household members: spouse Marital status: Current occupational status: unemployed Vitals/I&O/Wt Last Vital Signs Temp 98.9 F 06/11/21 09:00 Pulse 91 06/11/21 10:45 Resp 20 H 06/11/21 09:00 BP 137/94 06/11/21 10:45 Pulse Ox 93 06/11/21 09:00 01/25/22 01/26/22 01/26/22 22:59 06:59 14:59 Intake Total 560 / 1262 400 / 400 Output Total 100 / 100 Balance 460 / 1162 400 / 400 Weight last 48 hrs Weight 153 lb Weight 209 lb Physical Exam Narrative: EXAM NARRATIVE: Physical Exam Const COMMON NORMALS:?no acute distress, patient oriented x3 and alert GENERAL APPEARANCE:?cooperative ORIENTATION/CONSCIOUSNESS:?Yes awake OTHER: Very BLACKFEET.? HENMT COMMON NORMALS:?oropharynx normal Neck/C-Spine COMMON NORMALS:?no JVD Chest OTHER: R chest tunneled catheter, currently do not appreciate erythema or drainage from the access site or significant swelling Resp COMMON NORMALS:?normal respiratory effort and clear to auscultation bilaterally AUSCULTATION:?clear to auscultation bilaterally Cardio COMMON NORMALS:?no JVD, regular rhythm, S1 normal heart sound present, S2 normal heart sound present and No murmurs present (Cardio) RHYTHM:?regular rhythm HEART SOUNDS:?S1 normal heart sound present and S2 normal heart sound present GI COMMON NORMALS:?Normal to inspection, nondistended, normoactive bowel sounds present and Soft to palpation INSPECTION:?Yes abdominal distension PALPATION:?Yes Soft to palpation and Yes Tenderness to palpation present (GI) (Mild-moderate nonlocalized, reports chronic) Extremity COMMON NORMALS:?no joint enlargement and no pedal edema OTHER: Left forearm fistula, without any thrill, R forearm mildly swollen compared to L. Moving fingers, but difficulty with breastfeeding educator apart from adducting thumb. No loss of sensation or paresthesia. Warm and perfused. Neuro COMMON NORMALS:?patient oriented x3 and moves all extremities SENSORIUM/ORIENTATION:?Yes alert Skin COMMON NORMALS:?no rashes or lesions noted GENERAL SKIN EXAM:?no rashes or lesions noted Extremity: NARRATIVE EXTREMITY EXAM: right forearm painful to palpation dorasal aspect of forearm Urinary Catheter Management: Blue: Cath Placed During This Visit: yes Reason for Continuing Indwelling Catheter: Accurate Measurement of Urinary Output in Critically Ill Patients Urinary Catheter Date of Insertion: 06/10/21 Urinary Catheter Time of Insertion: 16:10 Data : 06/11/21 03:05 06/11/21 03:05 Micro: Microbiology 06/11/21 03:05 Blood Culture - Preliminary Blood SPECIMEN COLLECTED 06/11/21 03:05 Blood Culture - Preliminary Blood SPECIMEN COLLECTED 06/09/21 10:28 Blood Culture - Preliminary Blood 06/09/21 10:25 Blood Culture - Preliminary Blood 06/07/21 13:40 Blood Culture - Final Blood Methicillin Resis Staph Aureus 06/07/21 13:38 Blood Culture - Final Blood Methicillin Resis Staph Aureus 06/07/21 17:22 Blood Culture - Preliminary Blood Methicillin Resis Staph Aureus 06/07/21 17:22 Blood Culture - Preliminary Blood Methicillin Resis Staph Aureus A&P Assessment and plan (1) Abscess of right forearm: I+D Right forearm Status: Acute Coding Level of Care Code Acute 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
--- NOTE | 2021-06-11 15:05 | P.ANESASSM_ITS ---
Pre-Anesthetic Assessment Height/Weight: Height 1.85 m Weight 69.4 kg Temp Pulse Resp BP Pulse Ox 98.1 F 92 24 H 150/103 94 06/11/21 14:15 06/11/21 14:15 06/11/21 14:15 06/11/21 14:15 06/11/21 14:15 Preop Diagnosis: crf Operation Date: 06/10/21 17:25 Proposed Procedures p Dialysis Catheter Removal Hemodialysis Catheter Removal(Not Applicable) - Pablito Sams MD Operation Date: 06/11/21 17:55 Proposed Procedures p Irrigation debridement right forearm(Right) - Jasbir Coelho DO Familial anesthetic complications: None Was Beta Rupali taken within 24 hours: Yes Was Clonidine taken within 24 hours: Yes Social No alcohol and No tobacco Exam alert, oriented x 3, clear to auscultation bilaterally and regular rate & rhythm Pulmonary Shortness of Breath CV/HEM Anemia, Congestive Heart Failure, Hypertension and Murmur Endocarditis TR PI Able to climb flight of stairs without difficulty, 3 flights with SOB BALTAZAR CONCLUSIONS ?Echogenic lesions on the anterior mitral annulus ,posterior ?mitral leaflet and posterior tricuspid valve, measuring anywhere ?from 1.0 to 0.5 cm in size.? Suggestive of endocarditis. ?Features of severe mitral regurgitation with a regurgitant ?fraction of 69.6% ?Moderately severe tricuspid regurgitation ?Normal LV size ejection fraction. ?Biatrial enlargement, right worse than the left. ?No pericardial effusion. ?Possible small patent foramen ovale. ?No similar previous studies available for comparison TTE CONCLUSIONS ?Normal left ventricular size and systolic function, EF 55 %. ?Moderate concentric left ventricular hypertrophy. ?Mildly dilated right ventricle with a slightly diminished ?ejection fraction. ?Moderately increased right atrial size. ?Mildly increased left atrial size. ?Moderately severe eccentric mitral regurgitation. ?Possibly severe eccentric tricuspid valve regurgitation. ?Estimated pulmonary artery peak systolic pressure of 40 mmHg ?Trace pulmonary valve regurgitation. ?There are no intracardiac masses. ?There is no pericardial effusion.? ?Findings are discussed with Dr. Tanner. ?Consider BALTAZAR to better evaluate the valves, if clinically ?indicated Chronic Renal Failure Alport syndrome Hepatic None reported GI None reported Metabolic None reported Musc/skel None reported Neuropsych None reported Anesthetic Plan ASA status: 4 (35 year old male with renal disease on HD, Alport syndrome, now with infective endocarditis. ) Anesthesia: General Risk of > 500 ml blood loss (7ml/kg in children): No Medications/Allergies Home Medications Medication Instructions Recorded Confirmed Last Taken Type furosemide 80 mg tablet 80 mg PO BID 04/09/21 06/07/21 Unknown History hydralazine 100 mg tablet 100 mg PO TID 04/09/21 06/07/21 Unknown History minoxidil 10 mg tablet 5 mg PO DAILY 04/09/21 06/07/21 Unknown History pantoprazole 40 mg tablet,delayed 40 mg PO DAILY 04/09/21 06/07/21 Unknown History release vit B,C-folic ac 800 mcg-zinc 12.5 1 tab PO DAILY 04/09/21 06/07/21 Unknown History mg-selen-D3 2,000 unit-vit E tablet (RenaPlex-D) carvedilol 25 mg tablet 25 mg PO BID 06/07/21 06/07/21 Unknown History lactulose 10 gram/15 mL oral 30 ml PO DAILY PRN 06/07/21 06/07/21 Unknown History solution (Generlac) nifedipine 90 mg tablet,extended 90 mg PO DAILY 06/07/21 06/07/21 Unknown History release Allergies Allergy/AdvReac Type Severity Reaction Status Date / Time strawberry Allergy Mild ALGY-Rash Unverified 06/07/21 16:24 Current Medications Generic Name Dose Route Start Last Admin Trade Name Bess PRN Reason Stop Dose Admin Acetaminophen 650 mg 06/07/21 16:38 06/11/21 10:10 Acetaminophen 325 Mg Tablet PO 650 mg Q6H PRN Administration Mild/Mod Pain Or Temp >/= 101 Carvedilol 25 mg 06/10/21 21:00 06/11/21 10:05 Carvedilol 25 Mg Tablet PO 25 mg BID@0900,2100 VASHTI Administration Clonidine HCl 1 patch 06/10/21 10:00 06/10/21 11:44 Clonidine 0.1 Mg/24 Hr Patch TRANSDERMA 1 patch Q7D VASHTI Administration Ferrous Gluconate 324 mg 06/10/21 18:00 06/11/21 10:04 Ferrous Gluconate 324 Mg Tablet PO 324 mg BIDWM VASHTI Administration Furosemide 60 mg 06/09/21 10:00 06/11/21 10:08 Furosemide 10 Mg/Ml Sdv 10ml IVP 60 mg Q12H VASHTI Administration Heparin Sodium (Porcine) 5,000 unit 06/08/21 20:00 06/11/21 10:12 Heparin 5,000 Unit/Ml Inj 1 Ml SUBCUT 5,000 unit Q12H [facility] Administration Hydralazine HCl 100 mg 06/07/21 21:00 06/11/21 10:05 Hydralazine 50 Mg Tablet PO 100 mg TID [facility] Administration Vancomycin HCl 1,000 mg/ 250 mls @ 250 mls/hr 06/09/21 17:00 06/10/21 06:20 Sodium Chloride IV Infused Q48H [facility] Infusion Minoxidil 5 mg 06/07/21 21:00 06/11/21 10:04 Minoxidil 10 Mg Tablet PO 5 mg DAILY [facility] Administration Nifedipine 90 mg 06/08/21 09:00 06/11/21 10:05 Nifedipine Er (24 Hr) 30 Mg Tablet PO 90 mg DAILY [facility] Administration Ondansetron HCl 4 mg 06/07/21 16:38 06/08/21 20:32 Ondansetron 2 Mg/Ml Sdv 2 Ml IVP 4 mg Q8H PRN Administration vomiting, or N/V if npo Oxycodone/Acetaminophen 1 tab 06/09/21 16:07 06/11/21 06:00 Oxycodone-Apap 5-325 Mg Tablet PO 1 tab Q6H PRN Administration MODERATE PAIN Pantoprazole Sodium 40 mg 06/08/21 09:00 06/11/21 10:[address] 40 Mg Tablet PO 40 mg DAILY [facility] Administration Additional Medication Information Current Medications Acetaminophen (Acetaminophen 325 Mg Tablet) 650 mg PO Q6H PRN PRN Reason: Mild/Mod Pain Or Temp >/= 101 Last Admin: 06/08/21 19:51 Dose: 650 mg Documented by: Carvedilol (Carvedilol 25 Mg Tablet) 25 mg PO BID@0900,2100 [facility] Clonidine HCl (Clonidine 0.1 Mg/24 Hr Patch) 1 patch TRANSDERMA Q7D [facility] Last Admin: 06/10/21 11:44 Dose: 1 patch Documented by: Ferrous Gluconate (Ferrous Gluconate 324 Mg Tablet) 324 mg PO BIDWM [facility] Last Admin: 06/10/21 17:37 Dose: 324 mg Documented by: Furosemide (Furosemide 10 Mg/Ml Sdv 10ml) 60 mg IVP Q12H [facility] Last Admin: 06/10/21 11:44 Dose: 60 mg Documented by: Heparin Sodium (Porcine) (Heparin 5,000 Unit/Ml Inj 1 Ml) 5,000 unit SUBCUT Q1 2H [facility] Last Admin: 06/10/21 08:30 Dose: 5,000 unit Documented by: Heparin Sodium (Porcine) (Heparin, Porcine 1,000 Unit/Ml Inj 10 Ml) 10,000 unit HE ONCE PRN PRN Reason: Dialysis Hydralazine HCl (Hydralazine 50 Mg Tablet) 100 mg PO TID [facility] Last Admin: 06/10/21 14:37 Dose: 100 mg Documented by: Sodium Chloride (Sodium Chloride 0.9%) 1,000 mls @ 0 mls/hr IV .Q0M PRN PRN Reason: hypotension or symptomatic Piperacillin Sod/Tazobactam (Sod 3.375 gm/ Sodium Chloride) 50 mls @ 12.5 mls/hr IV Q12H [facility]; Protocol Last Admin: 06/10/21 14:40 Dose: 12.5 mls/hr Documented by: Vancomycin HCl 1,000 mg/ (Sodium Chloride) 250 mls @ 250 mls/hr IV Q48H [facility] Last Infusion: 06/10/21 06:20 Dose: Infused Documented by: Epoetin Avila 5,000 unit/ N/A 0.25 mls @ 0 mls/hr IVP QMWF [facility] Minoxidil (Minoxidil 10 Mg Tablet) 5 mg PO DAILY [facility] Last Admin: 06/10/21 08:28 Dose: 5 mg Documented by: Nifedipine (Nifedipine Er (24 Hr) 30 Mg Tablet) 90 mg PO DAILY [facility] Last Admin: 06/10/21 08:30 Dose: 90 mg Documented by: Ondansetron HCl (Ondansetron 2 Mg/Ml Sdv 2 Ml) 4 mg IVP Q8H PRN PRN Reason: vomiting, or N/V if npo Last Admin: 06/08/21 20:32 Dose: 4 mg Documented by: Oxycodone/Acetaminophen (Oxycodone-Apap 5-325 Mg Tablet) 1 tab PO Q6H PRN PRN Reason: MODERATE PAIN Pantoprazole Sodium (Pantoprazole Dr 40 Mg Tablet) 40 mg PO DAILY [facility] Last Admin: 06/10/21 08:30 Dose: 40 mg Documented by: [facility] Anesthesia Medical History Alport syndrome Dialysis AV fistula malfunction Diastolic heart failure Hemodialysis catheter infection HTN (hypertension) MRSA bacteremia Surgical History Fistula Left forearm S/P hemodialysis catheter insertion Multiple Status post dialysis Family History Other ESRD (end stage renal disease) Social History Smoking and tobacco status: never smoked Alcohol intake: never Substance/Drug Use: former Other details last substance use: Marijuana. Denies any other. Denies IVDU. Lives independently: Yes Household members: spouse Marital status: Current occupational status: unemployed Data Anesthesia : 06/11/21 03:05 06/11/21 03:05 Short CBC 06/10/21 06/11/21 Range/Units 04:04 03:05 WBC 6.4 7.8 (4.0-10.0) 10^3/uL Hgb 8.2 L 8.5 L (11.7-16.6) g/dL Hct 26.9 L 27.2 L (42.0-52.0) % MCV 88.8 85.0 (80-94) fl Plt Count 215 220 (130-400) 10^3/cmm Neut % (Auto) 74.9 70.5 % Neut # (Auto) 4.79 5.52 (1.8-7.7) 10^3/uL BMP 06/10/21 06/11/21 04:04 03:05 Sodium 138 135 L Potassium 3.9 4.6 Chloride 96 L 96 L Carbon Dioxide 23 21 L BUN 34 H 45 H Creatinine 6.6 H* 8.5 H* Glucose 110 94 Calcium 8.9 9.0 Liver Function 06/10/21 06/11/21 Range/Units 04:04 03:05 Total Bilirubin 0.4 0.4 (0.15-1.2) mg/dL AST 18 13 (0-40) U/L ALT 12 11 (0-41) U/L Alkaline Phosphatase 111 119 (40-130) IU/L Albumin 3.6 3.4 L (3.5-5.2) g/dL Microbiology 06/09/21 10:28 Blood Culture - Preliminary Blood Methicillin Resis Staph Aureus 06/09/21 10:25 Blood Culture - Preliminary Blood Methicillin Resis Staph Aureus 06/07/21 17:22 Blood Culture - Final Blood Methicillin Resis Staph Aureus 06/07/21 17:22 Blood Culture - Final Blood Methicillin Resis Staph Aureus 06/10/21 16:20 Catheter Tip Culture - Preliminary Other Source Staphylococcus aureus 06/11/21 03:05 Blood Culture - Preliminary Blood SPECIMEN COLLECTED 06/11/21 03:05 Blood Culture - Preliminary Blood SPECIMEN COLLECTED 06/07/21 13:40 Blood Culture - Final Blood Methicillin Resis Staph Aureus 06/07/21 13:38 Blood Culture - Final Blood Methicillin Resis Staph Aureus
--- NOTE | 2021-06-11 15:56 | P.PN_ITS ---
Subjective Subjective: Interval history: Infectious disease progress note: afberile, hemodynamics stable c.o pain over right arm CT forearm showed abscess along the extensor musculature 4 x 5.6 cm vanc random at 23.5 cath tip cx 06/10: staph aureus Medications: Reviewed: Yes Medication Review Details: Current Medications Acetaminophen (Acetaminophen 325 Mg Tablet) 650 mg PO Q6H PRN PRN Reason: Mild/Mod Pain Or Temp >/= 101 Last Admin: 06/08/21 19:51 Dose: 650 mg Documented by: Carvedilol (Carvedilol 25 Mg Tablet) 25 mg PO BID@0900,2100 [facility] Clonidine HCl (Clonidine 0.1 Mg/24 Hr Patch) 1 patch TRANSDERMA Q7D [facility] Last Admin: 06/10/21 11:44 Dose: 1 patch Documented by: Ferrous Gluconate (Ferrous Gluconate 324 Mg Tablet) 324 mg PO BIDWM [facility] Last Admin: 06/10/21 17:37 Dose: 324 mg Documented by: Furosemide (Furosemide 10 Mg/Ml Sdv 10ml) 60 mg IVP Q12H [facility] Last Admin: 06/10/21 11:44 Dose: 60 mg Documented by: Heparin Sodium (Porcine) (Heparin 5,000 Unit/Ml Inj 1 Ml) 5,000 unit SUBCUT Q12H [facility] Last Admin: 06/10/21 08:30 Dose: 5,000 unit Documented by: Heparin Sodium (Porcine) (Heparin, Porcine 1,000 Unit/Ml Inj 10 Ml) 10,000 unit HE ONCE PRN PRN Reason: Dialysis Hydralazine HCl (Hydralazine 50 Mg Tablet) 100 mg PO TID [facility] Last Admin: 06/10/21 14:37 Dose: 100 mg Documented by: Sodium Chloride (Sodium Chloride 0.9%) 1,000 mls @ 0 mls/hr IV .Q0M PRN PRN Reason: hypotension or symptomatic Piperacillin Sod/Tazobactam (Sod 3.375 gm/ Sodium Chloride) 50 mls @ 12.5 mls/hr IV Q12H [facility]; Protocol Last Admin: 06/10/21 14:40 Dose: 12.5 mls/hr Documented by: Vancomycin HCl 1,000 mg/ (Sodium Chloride) 250 mls @ 250 mls/hr IV Q48H [facility] Last Infusion: 06/10/21 06:20 Dose: Infused Documented by: Epoetin Avila 5,000 unit/ N/A 0.25 mls @ 0 mls/hr IVP QMWF [facility] Minoxidil (Minoxidil 10 Mg Tablet) 5 mg PO DAILY [facility] Last Admin: 06/10/21 08:28 Dose: 5 mg Documented by: Nifedipine (Nifedipine Er (24 Hr) 30 Mg Tablet) 90 mg PO DAILY [facility] Last Admin: 06/10/21 08:30 Dose: 90 mg Documented by: Ondansetron HCl (Ondansetron 2 Mg/Ml Sdv 2 Ml) 4 mg IVP Q8H PRN PRN Reason: vomiting, or N/V if npo Last Admin: 06/08/21 20:32 Dose: 4 mg Documented by: Oxycodone/Acetaminophen (Oxycodone-Apap 5-325 Mg Tablet) 1 tab PO Q6H PRN PRN Reason: MODERATE PAIN Pantoprazole Sodium (Pantoprazole Dr 40 Mg Tablet) 40 mg PO DAILY [facility] Last Admin: 06/10/21 08:30 Dose: 40 mg Documented by: Vitals/I&O/Wt Last Vital Signs Temp 98.1 F 06/11/21 14:15 Pulse 92 06/11/21 14:15 Resp 24 H 06/11/21 14:15 BP 150/103 06/11/21 14:15 Pulse Ox 94 06/11/21 14:15 06/11/21 06/11/21 06/11/21 06:59 14:59 22:59 Intake Total 400 / 400 Balance 400 / 400 Weight last 48 hrs Weight 69.4 kg Weight 94.801 kg Physical Exam Narrative: EXAM NARRATIVE: GEN: Awake, alert and oriented, no acute distress CVS: S1S2 N RS: CTA B/L Abd: Soft, nt/nd , bs+ 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 Urinary Catheter Management: Blue: Cath Placed During This Visit: yes Reason for Continuing Indwelling Catheter: Accurate Measurement of Urinary Output in Critically Ill Patients Urinary Catheter Date of Insertion: 06/10/21 Urinary Catheter Time of Insertion: 16:10 Data : 06/11/21 03:05 06/11/21 03:05 Micro: Microbiology 06/09/21 10:28 Blood Culture - Preliminary Blood Methicillin Resis Staph Aureus 06/09/21 10:25 Blood Culture - Preliminary Blood Methicillin Resis Staph Aureus 06/07/21 17:22 Blood Culture - Final Blood Methicillin Resis Staph Aureus 06/07/21 17:22 Blood Culture - Final Blood Methicillin Resis Staph Aureus 06/10/21 16:20 Catheter Tip Culture - Preliminary Other Source Staphylococcus aureus 06/11/21 03:05 Blood Culture - Preliminary Blood SPECIMEN COLLECTED 06/11/21 03:05 Blood Culture - Preliminary Blood SPECIMEN COLLECTED 06/07/21 13:40 Blood Culture - Final Blood Methicillin Resis Staph Aureus 06/07/21 13:38 Blood Culture - Final Blood Methicillin Resis Staph Aureus Other data: Ordering Provider/Ordering MD: Glenn Anderson MD Date of Service: 06/10/21 Procedure(s): CT forearm RT w con Accession Number(s): [id number] Report Number: [id number] PROCEDURE INFORMATION: Exam: CT Right Upper Extremity With Contrast, Forearm Exam date and time: 06/10/2021 5:02 PM Age: 35 years old Clinical indication: Arm, lower; Right; Patient HX: Swelling with redness to RT mid to distal forearm. ; Additional info: MRSA endocarditis, swelling right wrist, supected abscess vs pyomyositis vs septic wrist in patient TECHNIQUE: Imaging protocol: CT of the Right upper extremity with intravenous contrast was performed. Exam focused on the forearm. Radiation optimization: All CT scans at this facility use at least one of these dose optimization techniques: automated exposure control; mA and/or kV adjustment per patient size (includes targeted exams where dose is matched to clinical indication); or iterative reconstruction. Contrast material: VISI 320; Contrast volume: 75 ml; Contrast route: INTRAVENOUS (IV);? COMPARISON: CR (UP EX, ) 06/08/2021 4:17 PM RADIATION DOSE METRICS: Total DLP (mGy-cm): 741.33 FINDINGS: Bones/joints: Bones are unremarkable. Soft tissues: There is a fluid collection measuring 4.1 x 1.6 cm axial dimension and 5.6 cm in length located in the extensor musculature along the dorsal lateral margin of the distal radius. See axial series 4, image 61, sagittal series 200, image 37, and coronal series [address]/CT forearm RT w con [id number] IMPRESSION: Intramuscular fluid collection along the dorsal lateral margin of the distal radius consistent with abscess. ? A&P Assessment and plan (1) 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 (2) Moderate to severe mitral regurgitation: Status: Acute (3) Right forearm pain: Status: Acute (4) Hemodialysis catheter infection: Status: Acute Qualifiers: Encounter type: subsequent encounter Qualified Code(s): T82.7XXD - Infection and inflammatory reaction due to other cardiac and vascular devices, implants and grafts, subsequent encounter Plan 35-year-old male with end-stage renal disease currently on hemodialysis presenting with MRSA septicemia, right forearm abscess, evidence of endocarditis on BALTAZAR and line infection. #Positive blood cultures thus far on 06/07, 06/09. Pending from 06/11 Continue vancomycin, last level at 23. Difficult to say if primary source if positive blood cx currently is endocarditis from recent line infection 6-7 months ago vs if current infection is precipitated by infected line leading to endocarditis. Additionally patient has a right forearm abscess on CT imaging with surrounding cellulitis. Overall, current IV drug use, however does have some track mota which make us suspicious for the same. Secondary seeding and pyomyositis and abscesscannot be excluded. Agree will removal of tunneled HD catheter. Will need a temporary HD access in the interim with long-term plan switch to likely peritoneal dialysis. Plan for Shiley placement tomorrow. PD catheter hopefully next week. Would wait for culture clearance in the interim. Recommend orthopedics consult for drainage of forearm abscess BALTAZAR with echogenic lesions on the anterior mitral annulus, posterior mitral leaflet and posterior tricuspid valve measuring between 1 to 0.5 cm in size suggestive of endocarditis. Features of severe MR with a regurgitant fraction of 69%. Moderately severe tricuspid regurgitation. And a possible small patent ramos ovale. 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
--- NOTE | 2021-06-11 19:02 | ANE.PACU2 ---
Inpatient post-anesthesia follow up: Vital signs: Temperature 98.1 F Pulse Rate 94 Respiratory Rate 18 Blood Pressure 132/80 Pulse Oximetry 97 Oxygen Delivery Me thod [ Nasal Cannula Current Rate & Del salbador] Oxygen Delivery Me thod Room Air Oxygen Flow Rate [ Current Rate 4 & Delivery] Oxygen Flow Rate 5 Fraction of Inspir ed Oxygen 2
[2021-06-11] MEDS: vancomycin 1,000 MG SDV 1000 MG XX (19:12)
--- NOTE | 2021-06-11 19:15 | P.OP_ITS ---
Operative Report Date of procedure: June 11, 2021 Pre-op diagnosis: Preop Diagnosis abscess right forearm 4cm x 5.6cm x 1.6 cm in size Preop Diagnosis: MRSA bacteremia, suspected hemodialysis catheter infection. Post-op diagnosis: same Procedure done: Irrigation and debridement of muscle and fascia Specimens removed/disposition: cultures sent Surgeon: Jasbir Coelho Ac/Dc Rewinder: Chris Leach Ac/Dc Rewinder: The salesperson surgical appliances, Chris Leach, PAC was needed for his expertise of the anatomy of the arm. He was important and necessary throughout the procedure to complete in a safe and timely manner. He assisted with patient positioning prepping and draping tissue retraction suctioning of the operative field protection of the dural sac and tissue closure Findings: gross pus was present Procedure: Patient was brought to the operative suite after undergoing anesthesia all areas impingement well-padded. Patient was prepped and draped in normal sterile fashion. There was a area of fluctuance over the dorsal lateral wrist that measured approximately 6 cm long. This area was incised with a knife. Once the fascia was breached and the tendon of the extensors was identified the deep compartment deep to this was then opened and there was a large amount of pus that came out this was the spot of the abscess. His entire area was opened it was approximately 6 cm long and 4 cm wide and the height was about 1.6 cm in height. Once all the pus was irrigated out this was done with saline. A rongeur was used to debride the muscle to bleeding tissue and there was phlegmon that was present this was all removed once all this was irrigated and a deep drain was placed and the wound was closed with the skin being closed with 2-0 Vicryl and nylon suture. A deep drain again was placed and sewed in position. Sterile dressings were applied patient was transferred to the PACU in stable condition.
--- NOTE | 2021-06-11 19:45 | PC.NURSE ---
shift summary: Patient went for debridement of right forearm abscess. Was NPO preceding the surgery and patient was very irritable because of it. DId not allow regular vital monitoring, but did allow spot checks throughout the day. Patient rested in bed or paced room throughout shift while waiting on surgery. otherwise, uneventful.
--- NOTE | 2021-06-11 20:06 | P.PN_ITS ---
Subjective Subjective: Interval history: Patient continues to do okay with no chest pain or palpitation. No fever or chills. No cough. No unusual shortness of breath. Medications: Medication Review Details: Current Medications Acetaminophen (Acetaminophen 325 Mg Tablet) 650 mg PO Q6H PRN PRN Reason: Mild/Mod Pain Or Temp >/= 101 Last Admin: 06/11/21 10:10 Dose: 650 mg Documented by: Carvedilol (Carvedilol 25 Mg Tablet) 25 mg PO BID@0900,2100 [facility] Last Admin: 06/11/21 10:05 Dose: 25 mg Documented by: Clonidine HCl (Clonidine 0.1 Mg/24 Hr Patch) 1 patch TRANSDERMA Q7D [facility] Last Admin: 06/10/21 11:44 Dose: 1 patch Documented by: Ferrous Gluconate (Ferrous Gluconate 324 Mg Tablet) 324 mg PO BIDWM [facility] Last Admin: 06/11/21 17:53 Dose: Not Given Documented by: Furosemide (Furosemide 10 Mg/Ml Sdv 10ml) 60 mg IVP Q12H [facility] Last Admin: 06/11/21 10:08 Dose: 60 mg Documented by: Heparin Sodium (Porcine) (Heparin 5,000 Unit/Ml Inj 1 Ml) 5,000 unit SUBCUT Q12H [facility] Last Admin: 06/11/21 10:12 Dose: 5,000 unit Documented by: Heparin Sodium (Porcine) (Heparin, Porcine 1,000 Unit/Ml Inj 10 Ml) 10,000 unit HE ONCE PRN PRN Reason: Dialysis Hydralazine HCl (Hydralazine 50 Mg Tablet) 100 mg PO TID [facility] Last Admin: 06/11/21 17:53 Dose: Not Given Documented by: Sodium Chloride (Sodium Chloride 0.9%) 1,000 mls @ 0 mls/hr IV .Q0M PRN PRN Reason: hypotension or symptomatic Vancomycin HCl 1,000 mg/ (Sodium Chloride) 250 mls @ 250 mls/hr IV Q48H [facility] Last Infusion: 06/10/21 06:20 Dose: Infused Documented by: Epoetin Avila 5,000 unit/ N/A 0.25 mls @ 0 mls/hr IVP QMWF [facility] Minoxidil (Minoxidil 10 Mg Tablet) 5 mg PO DAILY [facility] Last Admin: 06/11/21 10:04 Dose: 5 mg Documented by: Nifedipine (Nifedipine Er (24 Hr) 30 Mg Tablet) 90 mg PO DAILY [facility] Last Admin: 06/11/21 10:05 Dose: 90 mg Documented by: Ondansetron HCl (Ondansetron 2 Mg/Ml Sdv 2 Ml) 4 mg IVP Q8H PRN PRN Reason: vomiting, or N/V if npo Last Admin: 06/08/21 20:32 Dose: 4 mg Documented by: Oxycodone/Acetaminophen (Oxycodone-Apap 5-325 Mg Tablet) 1 tab PO Q6H PRN PRN Reason: MODERATE PAIN Last Admin: 06/11/21 06:00 Dose: 1 tab Documented by: Pantoprazole Sodium (Pantoprazole Dr 40 Mg Tablet) 40 mg PO DAILY [facility] Last Admin: 06/11/21 10:07 Dose: 40 mg Documented by: Vitals/I&O/Wt Last Vital Signs Temp 98.1 F 06/11/21 17:45 Pulse 94 06/11/21 17:45 Resp 18 06/11/21 17:45 BP 132/80 06/11/21 17:45 Pulse Ox 97 06/11/21 17:45 06/11/21 06/11/21 06/11/21 06:59 14:59 22:59 Intake Total 400 / 400 60 / 460 Output Total 175 / 175 Balance 400 / 400 -115 / 285 Weight last 48 hrs Weight 153 lb Weight 209 lb Physical Exam Narrative: EXAM NARRATIVE: EXAM NARRATIVE: GENERAL: The patient is alert and oriented times three. Not in any acute distress. HEENT: No significant pallor, icterus or lymphadenopathy. The pupils are symmetrical t. Oral cavity: There are no mucous membrane lesions. NECK: Trachea appears to be central. No masses noted. No JVD or thyromegaly appreciated. No carotid bruit. RESPIRATORY: Breath sounds are bilaterally with no rales or rhonchi BREASTS: Deferred. HEART: The PMI is in the 5th left intercostals space just inside the midclavicular line. No palpable precordial events. S1 and S2 are normal. No S3 or S4 heard.? Systolic murmur of grade 4/6 on the left sternal border.? No diastolic murmurs. ABDOMEN: Abdomen is diffusely tender with minimal guarding.? Bowel sounds are heard but somewhat sluggish. : Deferred. RECTAL: Deferred. LYMPHATIC: No lymphadenopathy noted in the neck . EXTREMITIES: No edema or cyanosis. No clubbing.? The peripheral pulses are palpable and fairly good volume and amplitude.? He has a? thrill in the left radial artery MUSCULOSKELETAL: No acute joint deformities or swelling. SKIN: Extensive tattoo markings in the extremities and also on the chest NEUROPSYCHIATRIC: The patient is alert and oriented x3. Appears to be in a good mood.? He is hard of hearing Urinary Catheter Management: Blue: Cath Placed During This Visit: yes Reason for Continuing Indwelling Catheter: Accurate Measurement of Urinary Output in Critically Ill Patients Urinary Catheter Date of Insertion: 06/10/21 Urinary Catheter Time of Insertion: 16:10 Data : 06/11/21 03:05 06/11/21 03:05 Micro: Microbiology 06/09/21 10:28 Blood Culture - Preliminary Blood Methicillin Resis Staph Aureus 06/09/21 10:25 Blood Culture - Preliminary Blood Methicillin Resis Staph Aureus 06/07/21 17:22 Blood Culture - Final Blood Methicillin Resis Staph Aureus 06/07/21 17:22 Blood Culture - Final Blood Methicillin Resis Staph Aureus 06/10/21 16:20 Catheter Tip Culture - Preliminary Other Source Staphylococcus aureus 06/11/21 03:05 Blood Culture - Preliminary Blood SPECIMEN COLLECTED 06/11/21 03:05 Blood Culture - Preliminary Blood SPECIMEN COLLECTED A&P Assessment and plan (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 May continue on the current management. Medication adjustments as per the infectious disease service Status: Acute (2) Staphylococcus aureus bacteremia: Patient has dialysis catheter infection. The lesions on the mitral and tricuspid valves appears to be vegetations. Status: Deleted (3) Severe mitral regurgitation: Patient has severe eccentric mitral regurgitation. Hemodynamically seems to be stable. He may benefit from surgical intervention, once infection is appropriately treated. Surgical consult would be appropriate. Status: Acute (4) Tricuspid regurgitation: Tricuspid irritation appears to be moderate to moderately severe. This also seems eccentric, most likely from the previous endocarditis Status: Acute (5) Hemodialysis catheter infection: Patient is planning to have the catheter removal today Status: Acute Qualifiers: Encounter type: subsequent encounter Qualified Code(s): T82.7XXD - Infection and inflammatory reaction due to other cardiac and vascular devices, i mplants and grafts, subsequent encounter (6) ESRD (end stage renal disease) on dialysis: Management as per the nephrology service Status: Acute Plan Other problems are Hypertension Multiple substance abuse In view of his severe mitral regurgitation, surgical consult would be appropriate for further management. Attestations Medical Necessity Statement*: Disposition as per the primary Coding Level of Care Code Acute Shade Maker for Glendy Fwsami History Detailed Exam Detailed Medical Decision Making Moderate Complexity Diagnoses Endocarditis due to Staphylococcus I33.0; B95.8 Staphylococcus aureus bacteremia R78.81; B95.61 Severe mitral regurgitation I34.0 Tricuspid regurgitation I07.1 Hemodialysis catheter infection T82.7XXD Encounter type: subsequent encounter ESRD (end stage renal disease) on dialysis N18.6; Z99.2
[2021-06-12] VITALS (43 sets, daily range): BP systolic 135–182; BP diastolic 71–93; PULSE 72–102; RESP 11–27; TEMP 36.6–37; O2SAT 88–99
[2021-06-12] MEDS: oxyCODONE-APAP 5-325 mg Tablet 1 TAB PO ×4 (02:17→22:17)
[2021-06-12 03:13] LABS: Bilirubin Urine Neg (Negative); Blood Urine 3+ (Negative); Glucose Urine UA 1+ (Normal); Ketones Urine Negative (Negative); Nitrate Urine Negative (Negative); Protein Urine 3+ (Negative); Specific Gravity, Urine 1.015 (1.005-1.030); Urine Appearance Cloudy (CLEAR); Urine Color Yellow (Yellow); Urobilinogen Urine Norm (Negative); pH Urine 9 (5-7)
[2021-06-12 03:14] LABS: Add Urine Culture? Yes; Add Urine Microscopic? YES; Bacteria Urine 1+ /hpf; Leukocyte Esterase Urine 2+ (Negative); RBC Urine 25-40 /hpf (0-2); Squamous Epithelial Cell Urine 0-4 /hpf (0-5); Sulfosalicylic Acid Urine Positive (Negative)
[2021-06-12 03:50] LABS: Basophils % 0.2 %; Hematocrit 32.5 % (42.0-52.0); Hemoglobin 10.1 g/dL (11.7-16.6); Lymphocytes # 0.6 10^3/uL (0.8-4.8); Mean Corpuscular HGB Conc 31.1 g/dL (30.0-36.0); Mean Corpuscular Hemoglobin 26.9 pg (28.0-34.0); Mean Corpuscular Volume 86.4 fl (80-94); Mean Platelet Volume 11.3 fL (7.4-10.4); Monocytes # 0.2 10^3/uL (0.2-0.9); Neutrophils # 11.09 10^3/uL (1.8-7.7); Neutrophils % 91.8 %; Nucleated Red Blood Cells % 0 %; Platelet Count 286 10^3/cmm (130-400); Red Blood Count 3.76 10^6/uL (4.1-5.3); Red Cell Distribution Width 18.3 % (12.1-15.1); White Blood Count 12.1 10^3/uL (4.0-10.0)
[2021-06-12 04:29] LABS: Alanine Aminotransferase 10 U/L (0-41); Albumin Level 3.6 g/dL (3.5-5.2); Alkaline Phosphatase 130 IU/L (40-130); Anion Gap 26.2 (5-19); Aspartate Amino Transferase 11 U/L (0-40); Blood Urea Nitrogen 55 mg/dL (6-20); Calcium 9.7 mg/dL (8.5-10.5); Carbon Dioxide 19 mmol/L (22-29); Chloride 91 mmol/L (98-107); Creatinine Clr Calc Pharmacy 11.6091; Globulin 3.5 g/dL (1.3-4.6); Glomerular Filtration Rate 6.3 mL/min (90-130); Glucose 136 mg/dL (65-115); Osmolality Calculated 289 mOsm/kg (285-295); Phosphorus 5.8 mg/dL (2.5-4.5); Potassium 5.2 mmol/L (3.5-5.1); Sodium 131 mmol/L (136-145); Total Bilirubin 0.3 mg/dL (0.15-1.2); Total Protein 7.1 g/dL (6.6-8.7)
[2021-06-12 04:31] LABS: Vancomycin Random 19.7 ug/mL (20.0-40.0)
--- NOTE | 2021-06-12 06:14 | PC.NURSE ---
Shift Note Frequent safety and comfort rounds continue. Orders and/or nursing care completed as indicated. Patient monitored for response to intervention and treatment(s). Education provided includes infection prevent, medications with side effects, fall precautions. Patient verbalized understanding of education. Lines and tubes patent. Patient alert and orient. Pt returned from OR at approx 19:45, debridement and AJITH drain place to right FA, gauze with juanita bandage in place, clean and dry. Will continue to monitor.
--- NOTE | 2021-06-12 07:51 | PM.PN ---
Subjective Subjective: Interval history: feels better. s/p rt forearm abscess I and D. no n/v/vp patient/dunaway/d. afebrile Medications: Reviewed: Yes Medication Review Details: Current Medications Acetaminophen (Acetaminophen 325 Mg Tablet) 650 mg PO Q6H PRN PRN Reason: Mild/Mod Pain Or Temp >/= 101 Last Admin: 06/11/21 10:10 Dose: 650 mg Documented by: Carvedilol (Carvedilol 25 Mg Tablet) 25 mg PO BID@0900,2100 [facility] Last Admin: 06/11/21 21:46 Dose: 25 mg Documented by: Clonidine HCl (Clonidine 0.1 Mg/24 Hr Patch) 1 patch TRANSDERMA Q7D [facility] Last Admin: 06/10/21 11:44 Dose: 1 patch Documented by: Ferrous Gluconate (Ferrous Gluconate 324 Mg Tablet) 324 mg PO BIDWM [facility] Last Admin: 06/11/21 17:53 Dose: Not Given Documented by: Furosemide (Furosemide 10 Mg/Ml Sdv 10ml) 60 mg IVP Q12H [facility] Last Admin: 06/11/21 21:46 Dose: 60 mg Documented by: Heparin Sodium (Porcine) (Heparin 5,000 Unit/Ml Inj 1 Ml) 5,000 unit SUBCUT Q12H [facility] Last Admin: 06/11/21 20:08 Dose: 5,000 unit Documented by: Heparin Sodium (Porcine) (Heparin, Porcine 1,000 Unit/Ml Inj 10 Ml) 10,000 unit HE ONCE PRN PRN Reason: Dialysis Hydralazine HCl (Hydralazine 50 Mg Tablet) 100 mg PO TID [facility] Last Admin: 06/11/21 21:46 Dose: 100 mg Documented by: Sodium Chloride (Sodium Chloride 0.9%) 1,000 mls @ 0 mls/hr IV .Q0M PRN PRN Reason: hypotension or symptomatic Vancomycin HCl 1,000 mg/ (Sodium Chloride) 250 mls @ 250 mls/hr IV Q48H [facility] Last Infusion: 06/10/21 06:20 Dose: Infused Documented by: Epoetin Avila 5,000 unit/ N/A 0.25 mls @ 0 mls/hr IVP QMWF [facility] Last Admin: 06/11/21 21:39 Dose: Not Given Documented by: Minoxidil (Minoxidil 10 Mg Tablet) 5 mg PO DAILY [facility] Last Admin: 06/11/21 10:04 Dose: 5 mg Documented by: Nifedipine (Nifedipine Er (24 Hr) 30 Mg Tablet) 90 mg PO DAILY [facility] Last Admin: 06/11/21 10:05 Dose: 90 mg Documented by: Ondansetron HCl (Ondansetron 2 Mg/Ml Sdv 2 Ml) 4 mg IVP Q8H PRN PRN Reason: vomiting, or N/V if npo Last Admin: 06/08/21 20:32 Dose: 4 mg Documented by: Oxycodone/Acetaminophen (Oxycodone-Apap 5-325 Mg Tablet) 1 tab PO Q6H PRN PRN Reason: MODERATE PAIN Last Admin: 06/12/21 02:17 Dose: 1 tab Documented by: Pantoprazole Sodium (Pantoprazole Dr 40 Mg Tablet) 40 mg PO DAILY [facility] Last Admin: 06/11/21 10:07 Dose: 40 mg Documented by: Vitals/I&O/Wt Last Vital Signs Temp 97.9 F 06/12/21 05:31 Pulse 84 06/12/21 06:00 Resp 14 06/12/21 02:17 BP 143/74 06/12/21 05:31 Pulse Ox 92 06/12/21 05:31 06/11/21 06/12/21 06/12/21 22:59 06:59 14:59 Intake Total 410 / 810 Output Total 175 / 175 135 / 310 Balance 235 / 635 -135 / 500 Weight last 48 hrs Weight 98.974 kg Weight 69.4 kg Physical Exam Narrative: EXAM NARRATIVE: in bed in icu, vs noted - bp improved heent- nc/at, eomi, anicteric neck supple lung cta b/l heart reg, +XIMENA abd soft, nt, nd, + bs ext leg edema, rt arm bandaged LUE AVF neuro- a,a, o x 3 permacath removed Urinary Catheter Management: Blue: Cath Placed During This Visit: yes Reason for Continuing Indwelling Catheter: Accurate Measurement of Urinary Output in Critically Ill Patients Urinary Catheter Date of Insertion: 06/10/21 Urinary Catheter Time of Insertion: 16:10 Data : 06/12/21 03:26 06/12/21 03:26 Micro: Microbiology 06/11/21 03:05 Blood Culture - Preliminary Blood NEGATIVE TO DATE 06/11/21 03:05 Blood Culture - Preliminary Blood NEGATIVE TO DATE 06/09/21 10:28 Blood Culture - Preliminary Blood Methicillin Resis Staph Aureus 06/09/21 10:25 Blood Culture - Preliminary Blood Methicillin Resis Staph Aureus 06/07/21 17:22 Blood Culture - Final Blood Methicillin Resis Staph Aureus 06/07/21 17:22 Blood Culture - Final Blood Methicillin Resis Staph Aureus 06/10/21 16:20 Catheter Tip Culture - Preliminary Other Source Staphylococcus aureus A&P Assessment and plan (1) ESRD (end stage renal disease) on dialysis: Seen via telehealth with assistance of RN at bedside 1. ESRD - permacath removed. carl tomorrow morning- HD FRi and Sat- then remove dialysis catheter- discussed w/ Dr. Sams -kayexalate today -phos binder 2. staph aureus bacteremia- renal dose abx -keep vanco trough under 20 -+ endocarditis Mitral and tricuspod valves -Per Dr. Yoder of cardiology- he has severe eccentric mitral regurgitation.? He may benefit from surgical intervention, once infection is appropriately treated.? Surgical consult would be appropriate. -would consider PD for detention 3. Anemia, Hb 10.1-dec epogen mwf -no iv iron w/ bacteremia 4. Hypertension- improved 5. BASSAM per medicine seen and examined w/ RN- telehealth visit time spent . 30 min discussed w/ CUT OUT OPERATOR and Dr. Sams Status: Acute Plan as above Attestations Medical Necessity Statement*: endocarditis, esrd Time Spent in Patient Care: 16 - 35 minutes (>than 50% of time spent in counselling and/or direct pt care on unit). Coding Level of Care Code Acute Foam Cutting Supervisor for g Fwd Diagnoses ESRD (end stage renal disease) on dialysis N18.6; Z99.2
--- NOTE | 2021-06-12 08:19 | PM.PN ---
Subjective Subjective: Interval history: Patient doing much better this morning pain better controlled. Vitals/I&O/Wt Last Vital Signs Temp 97.9 F 06/12/21 05:31 Pulse 84 06/12/21 06:00 Resp 14 06/12/21 02:17 BP 143/74 06/12/21 05:31 Pulse Ox 92 06/12/21 05:31 06/11/21 06/12/21 06/12/21 22:59 06:59 14:59 Intake Total 410 / 810 Output Total 175 / 175 135 / 310 Balance 235 / 635 -135 / 500 Weight last 48 hrs Weight 218 lb 3.2 oz Weight 153 lb Physical Exam Narrative: EXAM NARRATIVE: Dressing dressing clean dry and intact patient is able to move his fingers. Urinary Catheter Management: Blue: Cath Placed During This Visit: yes Reason for Continuing Indwelling Catheter: Accurate Measurement of Urinary Output in Critically Ill Patients Urinary Catheter Date of Insertion: 06/10/21 Urinary Catheter Time of Insertion: 16:10 Data : 06/12/21 03:26 06/12/21 03:26 Micro: Microbiology 06/11/21 03:05 Blood Culture - Preliminary Blood NEGATIVE TO DATE 06/11/21 03:05 Blood Culture - Preliminary Blood NEGATIVE TO DATE 06/09/21 10:28 Blood Culture - Preliminary Blood Methicillin Resis Staph Aureus 06/09/21 10:25 Blood Culture - Preliminary Blood Methicillin Resis Staph Aureus 06/07/21 17:22 Blood Culture - Final Blood Methicillin Resis Staph Aureus 06/07/21 17:22 Blood Culture - Final Blood Methicillin Resis Staph Aureus 06/10/21 16:20 Catheter Tip Culture - Preliminary Other Source Staphylococcus aureus A&P Assessment and plan (1) Abscess of right forearm: Postop day #1 I&D right forearm abscess. Dc drain change dressing daily Status: Acute Attestations Medical Necessity Statement*: per primary service Coding Level of Care Code Acute College Admissions Counselor for Glendy Sanchez Diagnoses Abscess of right forearm L02.413
[2021-06-12] MEDS: sodium polystyrene sulfonate 15 gm/60 mL Btl 30 GM PO (09:27)
[2021-06-12] MEDS: heparin 5,000 unit/mL INJ 1 mL 5000 UNIT SUBCUT ×2 (09:28→20:33)
[2021-06-12] MEDS: minoxidil 10 mg Tablet 5 MG PO (09:29)
[2021-06-12] MEDS: sevelamer 800 mg Tablet 1600 MG PO ×3 (09:29→20:34)
[2021-06-12] MEDS: pantoprazole DR 40 mg Tablet PO (09:29)
[2021-06-12] MEDS: ferrous gluconate 324 mg Tablet PO ×2 (09:29→17:43)
[2021-06-12] MEDS: NIFEdipine ER (24 hr) 30 mg Tablet 90 MG PO (09:30)
[2021-06-12] MEDS: carvedilol 25 mg Tablet PO ×2 (09:32→20:36)
[2021-06-12] MEDS: FUROsemide 10 mg/mL SDV 10mL 60 MG IVP ×2 (09:34→21:08)
--- NOTE | 2021-06-12 10:01 | PM.PN ---
Subjective Subjective: Interval history: I had a discussion with the pearl glue drier this morning. He would like us to place a temporary femoral hemodialysis catheter for the patient tomorrow morning with probable plans to get rid of this the following day if no longer needed, and then plans for peritoneal dialysis catheter placement next week by Dr. Worthington. Vitals/I&O/Wt Last Vital Signs Temp 97.9 F 06/12/21 05:31 Pulse 84 06/12/21 06:00 Resp 14 06/12/21 09:28 BP 143/74 06/12/21 05:31 Pulse Ox 93 06/12/21 09:28 06/11/21 06/12/21 06/12/21 22:59 06:59 14:59 Intake Total 410 / 810 Output Total 175 / 310 135 / 310 Balance 235 / 500 -135 / 500 Weight last 48 hrs Weight 218 lb 3.2 oz Weight 153 lb Physical Exam Urinary Catheter Management: Blue: Cath Placed During This Visit: yes Reason for Continuing Indwelling Catheter: Accurate Measurement of Urinary Output in Critically Ill Patients Urinary Catheter Date of Insertion: 06/10/21 Urinary Catheter Time of Insertion: 16:10 Data : 06/12/21 03:26 06/12/21 03:26 Micro: Microbiology 06/11/21 19:10 Gram Stain - Final Arm - #2 06/11/21 03:05 Blood Culture - Preliminary Blood NEGATIVE TO DATE 06/11/21 03:05 Blood Culture - Preliminary Blood NEGATIVE TO DATE 06/09/21 10:28 Blood Culture - Preliminary Blood Methicillin Resis Staph Aureus 06/09/21 10:25 Blood Culture - Preliminary Blood Methicillin Resis Staph Aureus 06/07/21 17:22 Blood Culture - Final Blood Methicillin Resis Staph Aureus 06/07/21 17:22 Blood Culture - Final Blood Methicillin Resis Staph Aureus 06/10/21 16:20 Catheter Tip Culture - Preliminary Other Source Staphylococcus aureus A&P Assessment and plan (1) ESRD (end stage renal disease) on dialysis: I discussed temporary dialysis catheter placements with the patient. He has been through this multiple times and is agreeable to proceeding. He already knew most of the details of the procedure. I will make the patient n.p.o. after midnight tonight. We will plan on temporary dialysis catheter placement first thing in the morning tomorrow. Status: Acute Attestations Medical Necessity Statement*: See admitting service's notation. Coding Level of Care Code Acute Customer Relations Advisor for g Fwd Diagnoses ESRD (end stage renal disease) on dialysis N18.6; Z99.2
[2021-06-12] MEDS: hyDRALAzine 50 mg Tablet 100 MG PO ×3 (11:33→20:36)
--- NOTE | 2021-06-12 12:00 | PC.NURSE ---
Heart rate briefly dropped to approx. 60 beats per minute. Pt asymptomatic. Lasted approx 3 minutes. Strips placed in chart.
--- NOTE | 2021-06-12 13:25 | PC.OT ---
OT EVALUATION ORDERS RECIEVED. PATIENT DEMONSTRATED INDEPENDENT BED MOBILITY AND TRANSFER TO [facility] [place] REPORTS THAT HE IS MOVING ABOUT HIS ROOM, AND MAKING HIS BED INDEPENDENTLY. PATIENT 'S RIGHT FOREARM IN [place]. PATIENT ABLE TO DEMONSTRATE WRIST FLEXION/EXTENSION, SUPINATION/PRONATION, MAKE FIST AND OPPOSE FINGERS INDEPENDENTLY ALTHOUGH SLOWLY. PATIENT ENCOURAGED TO PERFORM THESE ROM EXERCISES. NO FURTHER SKILLED OT REQUIRED AT THIS TIME.
--- NOTE | 2021-06-12 15:18 | P.PN_ITS ---
Subjective Subjective: Interval history: No acute events overnight. Patient has remained hemodynamically stable. Blood pressure better controlled. Repeat blood cultures sent from so far [facility]. Underwent I&D drainage of right forearm abscess with orthopedics yesterday. Tolerated procedure well. Cultures have been sent. Afebrile last 24 hours. Medications: Reviewed: Yes Vitals/I&O/Wt Last Vital Signs Temp 97.8 F 06/12/21 08:00 Pulse 80 06/12/21 11:00 Resp 16 06/12/21 11:00 BP 154/91 06/12/21 11:00 Pulse Ox 95 06/12/21 11:00 06/12/21 06/12/21 06/12/21 06:59 14:59 22:59 Intake Total 900 / 900 Output Total 135 / 310 Balance -135 / 500 900 / 900 Weight last 48 hrs Weight 98.974 kg Weight 69.4 kg Physical Exam Const: COMMON NORMALS: no acute distress, patient oriented x3 and alert GENERAL APPEARANCE: cooperative ORIENTATION/CONSCIOUSNESS: Yes awake OTHER: Very [place]. HENMT: COMMON NORMALS: oropharynx normal Neck/C-Spine: COMMON NORMALS: no JVD Chest: OTHER: R chest tunneled catheter, currently do not appreciate erythema or drainage from the access site or significant swelling Resp: COMMON NORMALS: normal respiratory effort and clear to auscultation bilaterally AUSCULTATION: clear to auscultation bilaterally Cardio: COMMON NORMALS: no JVD, regular rhythm, S1 normal heart sound present, S2 normal heart sound present and No murmurs present (Cardio) RHYTHM: regular rhythm HEART SOUNDS: S1 normal heart sound present and S2 normal heart sound present GI: COMMON NORMALS: Normal to inspection, nondistended, normoactive bowel sounds present and Soft to palpation INSPECTION: Yes abdominal distension PALPATION: Yes Soft to palpation and Yes Tenderness to palpation present (GI) (Mild-moderate nonlocalized, reports chronic) Extremity: COMMON NORMALS: no joint enlargement and no pedal edema OTHER: Left forearm fistula, without any thrill, R forearm mildly swollen compared to L. 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 No loss of sensation or paresthesia. Warm and perfused. Neuro: COMMON NORMALS: patient oriented x3 and moves all extremities SENSORIUM/ORIENTATION: Yes alert Skin: COMMON NORMALS: no rashes or lesions noted GENERAL SKIN EXAM: no rashes or lesions noted OTHER: Diffuse excoriated lesions on face, LE, he states started after strawberry allergy Urinary Catheter Management: Blue: Cath Placed During This Visit: yes Reason for Continuing Indwelling Catheter: Accurate Measurement of Urinary Output in Critically Ill Patients Urinary Catheter Date of Insertion: 06/10/21 Urinary Catheter Time of Insertion: 16:10 Data : 06/12/21 03:26 06/12/21 03:26 Micro: Microbiology 06/09/21 10:28 Blood Culture - Final Blood Methicillin Resis Staph Aureus 06/09/21 10:25 Blood Culture - Final Blood Methicillin Resis Staph Aureus 06/12/21 01:20 MRSA Culture - Final Nose 06/10/21 16:20 Catheter Tip Culture - Final Other Source Methicillin Resis Staph Aureus 06/11/21 19:10 Gram Stain - Final Arm - #2 06/11/21 03:05 Blood Culture - Preliminary Blood NEGATIVE TO DATE 06/11/21 03:05 Blood Culture - Preliminary Blood NEGATIVE TO DATE 06/07/21 17:22 Blood Culture - Final Blood Methicillin Resis Staph Aureus 06/07/21 17:22 Blood Culture - Final Blood Methicillin Resis Staph Aureus A&P Assessment and plan (1) 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 Status: Acute (4) Hemodialysis catheter infection: Status: Acute Qualifiers: Encounter type: subsequent encounter Qualified Code(s): T82.7XXD - Infection and inflammatory reaction due to other cardiac and vascular devices, implants and grafts, subsequent encounter (5) Abscess of right forearm: Status: Acute (6) MRSA bacteremia: Status: Acute (7) Moderate mitral regurgitation: New finding. Most likely secondary to infective endocarditis. Given extensive mitral regurgitation patient will most likely need a mitral clipping versus mitral valve replacement going forward once infective endocarditis clears up or sooner if he continues to remain persistently bacteremic. Status: Acute (8) Hypoxia: Status: Acute (9) Diastolic heart failure: Status: Acute (10) Dialysis patient, noncompliant: Status: Acute (11) HTN (hypertension): Status: Acute (12) Cardiomegaly: Status: Acute (13) LVH (left ventricular hypertrophy): With history of hypertension. Not adherent with hemodialysis. I am not not certain that he is adherent with his medications at home. Continue HTN medicines. Aspirin, beta-lucas. Stress test when able. Unclear benefit of statin in setting of ESRD on dialysis. Status: Acute (14) Severe tricuspid regurgitation: Status: Acute (15) Ascites: Most likely from diastolic heart failure. Seems to be improving with regular dialysis. Check hepatitis panel, HIV. Status: Acute (16) Acute hyperkalemia: Resolved. On hemodialysis. Check daily BMP. 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 Most likely secondary to IV drug abuse. BALTAZAR results consistent with echogenic density seen on posterior mitral leaflet, posterior tricuspid valve measuring 1 to 0.5 cm in size suggestive of endocarditis. Blood cultures from 06/09 also positive. Repeat blood cultures sent 06/11 Appreciate ID, surgical and nephrology recommendations. HD catheter removed 06/10. Trying to give line holiday. Plan for Shiley/temporary dialysis catheter placement tomorrow morning for dialysis tomorrow and day after. If blood cultures remain negative can go for peritoneal dialysis early next week. For now continue with vancomycin. Vancomycin random level 19.7 today. Continue to check vancomycin random level daily for now. Target levels 15-20. Dose vancomycin accordingly. We will consult orthopedics for I&D versus drain for right forearm abscess. CKD: Appreciate nephrology recommendations. Plan for line holiday. Removal of HD catheter on 06/10. Long-term peritoneal dialysis. Peritoneal dialysis catheter hopeful to be placed early next week if blood cultures cleared up by then. Monitor BMP daily. Hyperkalemia seems to be resolved. Hypoxia: COVID-19 PCR negative.? Most likely secondary to congestive diastolic heart failure. Perfusion study low probability for PE. Hemodialysis with negative fluid balance. Continue with Lasix to 60 mg IV every 12 hourly. Monitor strict input output charting. Hypertension: Goal blood pressure less than 140/90 mmHg. Blood pressure better controlled. Continue with home dose of hydralazine, nifedipine. Continue with Coreg 25 mg twice daily and clonidine 0.1 mg patch. Full code. Dialysis regular diet. Protonix for PUD prophylaxis. Heparin for DVT prophylaxis. Guarded prognosis. Discharge planning: Will most likely need IV antibiotics for 6 weeks once blood cultures clear up. Most likely will need placement for IV antibiotics given history of drug abuse will be difficult to send patient out with a PICC line. Will consult case management. Patient will also need new peritoneal dialysis catheter teaching before discharge and also set up as an outpatient. Plan for today: Continue with antihypertensives, monitor blood cultures and hemodynamics. Plan for temporary dialysis catheter tomorrow and dialysis. Can transfer out of ICU. Attestations Medical Necessity Statement*: Requires further hospitalization for management of MRSA endocarditis, right forearm abscess in setting of IV drug abuse, CKD on maintenance hemodialysis Time Spent in Patient Care: Greater than 35 minutes Coding Level of Care Code Acute Director Of Clinical Services for [facility] Fwd Diagnoses Endocarditis due to Staphylococcus I33.0; B95.8 Moderate to severe mitral regurgitation I34.0 Right forearm pain M79.631 Hemodialysis catheter infection T82.7XXD Encounter type: subsequent encounter Abscess of right forearm L02.413 MRSA bacteremia R78.81; B95.62 Moderate mitral regurgitation I34.0 Hypoxia R09.02 Diastolic heart failure I50.30 Dialysis patient, noncompliant Z91.15 HTN (hypertension) I10 Cardiomegaly I51.7 LVH (left ventricular hypertrophy) I51.7 Severe tricuspid regurgitation I07.1 Ascites R18.8 Acute hyperkalemia E87.5 Uremia N19
--- NOTE | 2021-06-12 15:30 | PC.NURSE ---
Pt up in his room. Monitoring wires off. HE stated he just needed to mve around and straighten up his room then he will put the monitoring wires back on.
--- NOTE | 2021-06-12 19:11 | PC.NURSE ---
Shift Note Pt pleasant. He is antsy at times. He just has to get up move around, removing his monitoring wires because he needs to not be tied down for a while He keeps his duffel bag near the bed at all times, he took out his director merit system at one point, he was instructed to put it back it could not be out. He complied. He had one kyler down episode this shift were his heart rate went to 60, no distress noted. His roght arm is well-approximated, drain removed today. He had a massive loose dark BM today. URine output minimal at 100 ml. Frequent safety and comfort rounds continue. Orders and/or nursing care completed as indicated. Patient monitored for response to intervention and treatment(s). Education provided includes oxycodone, hydralazine, coreg, Fluid restriction and kidney disease. Patient verbalized understanding of medications, progress and continuing plan of care. Will continue to monitor.
--- NOTE | 2021-06-12 20:14 | PM.PN ---
Subjective Subjective: Interval history: Patient seems to be doing okay with no chest pain, shortness of breath, fever or chills. Vital signs remained stable. Telemetry shows sinus rhythm with no significant arrhythmias. Patient is getting hemodialysis catheter today Medications: Medication Review Details: Current Medications Acetaminophen (Acetaminophen 325 Mg Tablet) 650 mg PO Q6H PRN PRN Reason: Mild/Mod Pain Or Temp >/= 101 Last Admin: 06/11/21 10:10 Dose: 650 mg Documented by: Carvedilol (Carvedilol 25 Mg Tablet) 25 mg PO BID@0900,2100 [facility] Last Admin: 06/12/21 09:32 Dose: 25 mg Documented by: Clonidine HCl (Clonidine 0.1 Mg/24 Hr Patch) 1 patch TRANSDERMA Q7D [facility] Last Admin: 06/10/21 11:44 Dose: 1 patch Documented by: Ferrous Gluconate (Ferrous Gluconate 324 Mg Tablet) 324 mg PO BIDWM [facility] Last Admin: 06/12/21 17:43 Dose: 324 mg Documented by: Furosemide (Furosemide 10 Mg/Ml Sdv 10ml) 60 mg IVP Q12H [facility] Last Admin: 06/12/21 09:34 Dose: 60 mg Documented by: Heparin Sodium (Porcine) (Heparin 5,000 Unit/Ml Inj 1 Ml) 5,000 unit SUBCUT Q12H [facility] Last Admin: 06/12/21 09:28 Dose: 5,000 unit Documented by: Heparin Sodium (Porcine) (Heparin, Porcine 1,000 Unit/Ml Inj 10 Ml) 10,000 unit HE ONCE PRN PRN Reason: Dialysis Hydralazine HCl (Hydralazine 50 Mg Tablet) 100 mg PO TID [facility] Last Admin: 06/12/21 15:58 Dose: 100 mg Documented by: Sodium Chloride (Sodium Chloride 0.9%) 1,000 mls @ 0 mls/hr IV .Q0M PRN PRN Reason: hypotension or symptomatic Vancomycin HCl 1,000 mg/ (Sodium Chloride) 250 mls @ 250 mls/hr IV Q48H [facility] Last Infusion: 06/10/21 06:20 Dose: Infused Documented by: Epoetin Avila 3,000 unit/ N/A 0.15 mls @ 0 mls/hr IVP QMWF [facility] Cefazolin Sodium 2,000 mg/ (Sodium Chloride) 60 mls @ 100 mls/hr IV ONCE ONE Stop: 06/13/21 07:35 Minoxidil (Minoxidil 10 Mg Tablet) 5 mg PO DAILY [facility] Last Admin: 06/12/21 09:29 Dose: 5 mg Documented by: Nifedipine (Nifedipine Er (24 Hr) 30 Mg Tablet) 90 mg PO DAILY [facility] Last Admin: 06/12/21 09:30 Dose: 90 mg Documented by: Ondansetron HCl (Ondansetron 2 Mg/Ml Sdv 2 Ml) 4 mg IVP Q8H PRN PRN Reason: vomiting, or N/V if npo Last Admin: 06/08/21 20:32 Dose: 4 mg Documented by: Oxycodone/Acetaminophen (Oxycodone-Apap 5-325 Mg Tablet) 1 tab PO Q6H PRN PRN Reason: MODERATE PAIN Last Admin: 06/12/21 16:00 Dose: 1 tab Documented by: Pantoprazole Sodium (Pantoprazole Dr 40 Mg Tablet) 40 mg PO DAILY [facility] Last Admin: 06/12/21 09:29 Dose: 40 mg Documented by: Sevelamer Carbonate (Sevelamer 800 Mg Tablet) 1,600 mg PO TID [facility] Last Admin: 06/12/21 15:58 Dose: 1,600 mg Documented by: Vitals/I&O/Wt Last Vital Signs Temp 97.9 F 06/12/21 14:50 Pulse 87 06/12/21 17:00 Resp 11 L 06/12/21 17:00 BP 143/85 06/12/21 17:00 Pulse Ox 95 06/12/21 17:00 06/12/21 06/12/21 06/12/21 06:59 14:59 22:59 Intake Total 1050 / 1050 200 / 1250 Output Total 135 / 310 100 / 100 Balance -135 / 500 1050 / 1050 100 / 1150 Weight last 48 hrs Weight 218 lb 3.2 oz Weight 153 lb Physical Exam Narrative: EXAM NARRATIVE: GENERAL: The patient is alert and oriented times three. Not in any acute distress. HEENT: No significant pallor, icterus or lymphadenopathy. The pupils are symmetrical t. Oral cavity: There are no mucous membrane lesions. NECK: Trachea appears to be central. No masses noted. No JVD or thyromegaly appreciated. No carotid bruit. RESPIRATORY: Breath sounds are bilaterally with no rales or rhonchi BREASTS: Deferred. HEART: The PMI is in the 5th left intercostals space just inside the midclavicular line. No palpable precordial events. S1 and S2 are normal. No S3 or S4 heard.? Systolic murmur of grade 4/6 on the left sternal border.? No diastolic murmurs. ABDOMEN: The abdominal tenderness is improving. Bowel sounds are heard but somewhat sluggish. : Deferred. RECTAL: Deferred. LYMPHATIC: No lymphadenopathy noted in the neck . EXTREMITIES: No edema or cyanosis. No clubbing.? The peripheral pulses are palpable and fairly good volume and amplitude.? He has a? thrill in the left radial artery MUSCULOSKELETAL: No acute joint deformities or swelling. SKIN: Extensive tattoo markings in the extremities and also on the chest NEUROPSYCHIATRIC: The patient is alert and oriented x3. Appears to be in a good mood.? He is hard of hearing Urinary Catheter Management: Blue: Cath Placed During This Visit: yes Reason for Continuing Indwelling Catheter: Accurate Measurement of Urinary Output in Critically Ill Patients Urinary Catheter Date of Insertion: 06/10/21 Urinary Catheter Time of Insertion: 16:10 Data : 06/12/21 03:26 06/12/21 03:26 Other Labs: Laboratory Last Values WBC 12.1 10^3/uL (4.0-10.0) H 06/12/21 03:26 RBC 3.76 10^6/uL (4.1-5.3) L 06/12/21 03:26 Hgb 10.1 g/dL (11.7-16.6) L 06/12/21 03:26 Hct 32.5 % (42.0-52.0) L 06/12/21 03:26 MCV 86.4 fl (80-94) 06/12/21 03:26 MCH 26.9 pg (28.0-34.0) L 06/12/21 03:26 MCHC 31.1 g/dL (30.0-36.0) 06/12/21 03:26 RDW 18.3 % (12.1-15.1) H 06/12/21 03:26 Plt Count 286 10^3/cmm (130-400) 06/12/21 03:26 MPV 11.3 fL (7.4-10.4) H 06/12/21 03:26 Neut % (Auto) 91.8 % 06/12/21 03:26 Lymph % (Auto) 5.0 % 06/12/21 03:26 [place] % (Auto) 2.0 % 06/12/21 03:26 Eos % (Auto) 0.0 % 06/12/21 03:26 Baso % (Auto) 0.2 % 06/12/21 03:26 Neut # (Auto) 11.09 10^3/uL (1.8-7.7) H 06/12/21 03:26 Lymph # (Auto) 0.6 10^3/uL (0.8-4.8) L 06/12/21 03:26 [place] # (Auto) 0.2 10^3/uL (0.2-0.9) 06/12/21 03:26 Eos # (Auto) 0.0 10^3/uL (0.0-0.8) 06/12/21 03:26 Baso # (Auto) 0.0 10^3/uL (0.0-0.1) 06/12/21 03:26 Nucleated RBC % (auto) 0 % 06/12/21 03:26 Nucleated RBCs # 0.0 /100WBC 06/12/21 03:26 PT 21.10 SECONDS (12.1-14.9) H 06/07/21 13:38 INR 1.78 (0.8-1.2) H 06/07/21 13:38 APTT 40.8 SECONDS (23.9-36.7) H 06/07/21 13:38 D-Dimer 19.94 ug/mIFEU (0-0.59) H 06/09/21 10:28 Sodium 131 mmol/L (136-145) L 06/12/21 03:26 Potassium 5.2 mmol/L (3.5-5.1) H 06/12/21 03:26 Chloride 91 mmol/L (98-107) L 06/12/21 03:26 Carbon Dioxide 19 mmol/L (22-29) L 06/12/21 03:26 Anion Gap 26.2 (5-19) H 06/12/21 03:26 BUN 55 mg/dL (6-20) H 06/12/21 03:26 Creatinine 9.6 mg/dL (0.7-1.2) H* 06/12/21 03:26 GFR Calculation 6.3 mL/min (90-130) L 06/12/21 03:26 Glucose 136 mg/dL (65-115) H 06/12/21 03:26 Estimat Average Glucose 85 06/10/21 04:04 Hemoglobin A1c 4.6 % (4.0-6.0) 06/10/21 04:04 Calculated Osmolality 289 mOsm/kg (285-295) 06/12/21 03:26 Lactate 1.0 mmol/L (0.5-2.2) 06/07/21 13:38 Calcium 9.7 mg/dL (8.5-10.5) 06/12/21 03:26 Phosphorus 5.8 mg/dL (2.5-4.5) H 06/12/21 03:26 Magnesium 2.0 mg/dL (1.7-2.3) 06/12/21 03:26 Iron 19 ug/dL (59-158) L 06/09/21 08:24 Iron Cancelled 06/09/21 08:24 TIBC 148 mcg/dl 06/09/21 08:24 % Saturation 12.8 % (20-50) L 06/09/21 08:24 Unsat Iron Binding 129 ug/dL (112-347) 06/09/21 08:24 Ferritin 810 ng/mL (30-400) H 06/09/21 08:24 Total Bilirubin 0.3 mg/dL (0.15-1.2) 06/12/21 03:26 AST 11 U/L (0-40) 06/12/21 03:26 ALT 10 U/L (0-41) 06/12/21 03:26 Alkaline Phosphatase 130 IU/L (40-130) 06/12/21 03:26 Creatine Kinase 46 U/L (39-308) 06/09/21 10:28 Troponin T Baseline 114 ng/L (0-15) H* 06/07/21 12:45 Troponin T 120 Minute 101.4 ng/L (0-15) H 06/07/21 15:30 Delta Troponin T -12.6 ABS# (0-10) L 06/07/21 15:30 Troponin T Hi Sens 6Hr 109.5 ng/L (0-15) H 06/07/21 18:50 Troponin T Hi Sens 6Hr Delta -4.5 ng/L (0-12) L 06/07/21 18:50 C-Reactive Protein 116.6 mg/L (0.0-4.9) H 06/09/21 10:28 NT-Pro-B Natriuret Pep > 09686 pg/mL (0-125) H 06/09/21 10:28 Total Protein 7.1 g/dL (6.6-8.7) 06/12/21 03:26 Albumin 3.6 g/dL (3.5-5.2) 06/12/21 03:26 Globulin 3.5 g/dL (1.3-4.6) 06/12/21 03:26 Triglycerides 146 mg/dL (0-150) 06/10/21 04:04 Cholesterol 107 mg/dL (0-200) 06/10/21 04:04 LDL Cholesterol, Calc 53 mg/dL (50-129) 06/10/21 04:04 Total VLDL Cholesterol 29 mg/dL (0-30) 06/10/21 04:04 HDL Cholesterol 25 mg/dL (60-100) L 06/10/21 04:04 Cholesterol/HDL Ratio 4.28 mg/dL (1.0-5.00) 06/10/21 04:04 Lipase 10 U/L (13-60) L 06/07/21 12:45 Vitamin B12 487 pg/mL (232-1245) 06/09/21 10:28 Folate 5.1 ng/mL (4.5-32.2) 06/09/21 10:28 Procalcitonin > 100.00 ng/mL (0-0.5) H 06/09/21 10:28 TSH 4.96 uIU/mL (0.27-4.20) H 06/09/21 10:28 Free T4 0.93 ng/dL (0.82-1.77) 06/09/21 10:28 Free T3 1.4 PG/ML (2.0-4.4) L 06/09/21 10:28 PTH Intact 169.9 pg/mL (15-65) H 06/11/21 03:05 Calcium (PTH Intact) 8.0 mg/dL (8.5-10.5) L 06/11/21 03:05 Urine Color Yellow (Yellow) 06/12/21 02:05 Urine Appearance Cloudy (CLEAR) 06/12/21 02:05 Urine pH 9 (5-7) H 06/12/21 02:05 Ur Specific [place] 1.015 (1.005-1.030) 06/12/21 02:05 Urine Protein 3+ (Negative) H 06/12/21 02:05 Urine Glucose (UA) 1+ (Normal) H 06/12/21 02:05 Urine Ketones Negative (Negative) 06/12/21 02:05 Urine Blood 3+ (Negative) H 06/12/21 02:05 Urine Nitrate Negative (Negative) 06/12/21 02:05 Urine Bilirubin Neg (Negative) 06/12/21 02:05 Prot Sulfosalicylic Acd Positive (Negative) 06/12/21 02:05 Urine Urobilinogen Norm mg/dL (Negative) 06/12/21 02:05 Ur Leukocyte Esterase 2+ (Negative) H 06/12/21 02:05 Urine RBC 25-40 /hpf (0-2) H 06/12/21 02:05 Urine WBC 10-15 /hpf (0-5) H 06/12/21 02:05 Ur Squamous Epith Cells 0-4 /hpf (0-5) H 06/12/21 02:05 Amorphous Sediment Not Reportable 06/12/21 02:05 Urine Bacteria 1+ /hpf (NONE) H 06/12/21 02:05 Vancomycin Trough 4.1 ug/mL (10-15) L 06/09/21 10:55 Random Vancomycin 19.7 ug/mL (20.0-40.0) L 06/12/21 03:26 Urine Opiates Screen Negative ng/mL (Negative) 06/07/21 19:25 Ur Barbiturates Screen Negative ng/mL (Negative) 06/07/21 19:25 Ur Phencyclidine Scrn Negative ng/mL (Negative) 06/07/21 19:25 Ur Amphetamines Screen Negative ng/mL (Negative) 06/07/21 19:25 U Benzodiazepines Scrn Negative ng/mL (Negative) 06/07/21 19:25 Urine Cocaine Screen Negative ng/mL (Negative) 06/07/21 19:25 U Marijuana (THC) Screen Negative ng/mL (Negative) 06/07/21 19:25 Ethyl Alcohol < 10 mg/dL (0-10) 06/07/21 12:45 Coronavirus 229E (PCR) Not detected (NOT DETECT) 06/07/21 13:52 Hep Bs Antigen Non-reactive (Nonreactive) 06/07/21 12:45 Hep Bs Antibody 129.8 (11.5-1000) 06/07/21 12:45 Hepatitis C Antibody Non-reactive (Nonreactive) 06/07/21 12:45 HIV 1&2 Ab & HIV 1 Ag Non-reactive (Non-Reactiv) 06/09/21 10:28 HIV 1&2 Antibody Non-reactive (Non-Reactiv) 06/09/21 10:28 SARS-CoV-2 (PCR) Not detected (NOT DETECT) 06/07/21 13:52 Micro: Microbiology 06/09/21 10:28 Blood Culture - Final Blood Methicillin Resis Staph Aureus 06/09/21 10:25 Blood Culture - Final Blood Methicillin Resis Staph Aureus 06/12/21 01:20 MRSA Culture - Final Nose 06/10/21 16:20 Catheter Tip Culture - Final Other Source Methicillin Resis Staph Aureus 06/11/21 19:10 Gram Stain - Final Arm - #2 06/11/21 03:05 Blood Culture - Preliminary Blood NEGATIVE TO DATE 06/11/21 03:05 Blood Culture - Preliminary Blood NEGATIVE TO DATE 06/07/21 17:22 Blood Culture - Final Blood Methicillin Resis Staph Aureus 06/07/21 17:22 Blood Culture - Final Blood Methicillin Resis Staph Aureus A&P Assessment and plan (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 May continue on the current management. Medication adjustments as per the infectious disease service Status: Acute (2) Staphylococcus aureus bacteremia: Patient has dialysis catheter infection. The lesions on the mitral and tricuspid valves appears to be vegetations. Status: Deleted (3) Severe mitral regurgitation: Patient has severe eccentric mitral regurgitation. Hemodynamically seems to be stable. He may benefit from surgical intervention, once infection is appropriately treated. Surgical consult would be appropriate. Status: Acute (4) Tricuspid regurgitation: Tricuspid irritation appears to be moderate to moderately severe. This also seems eccentric, most likely from the previous endocarditis Status: Acute (5) Hemodialysis catheter infection: Patient is planning to have the dialysis catheter placement today Status: Acute Qualifiers: Encounter type: subsequent encounter Qualified Code(s): T82.7XXD - Infection and inflammatory reaction due to other cardiac and vascular devices, implants and grafts, subsequent encounter (6) ESRD (end stage renal disease) on dialysis: Management as per the nephrology service Status: Acute Plan Other problems are Hypertension Multiple substance abuse Continue on the current treatment pressures Attestations Medical Necessity Statement*: Disposition as per the primary Coding Level of Care Code Acute [employer] Stewardess for [facility] History Detailed Exam Detailed Medical Decision Making Moderate Complexity Diagnoses Endocarditis due to Staphylococcus I33.0; B95.8 Staphylococcus aureus bacteremia R78.81; B95.61 Severe mitral regurgitation I34.0 Tricuspid regurgitation I07.1 Hemodialysis catheter infection T82.7XXD Encounter type: subsequent encounter ESRD (end stage renal disease) on dialysis N18.6; Z99.2
[2021-06-13] VITALS (43 sets, daily range): BP systolic 104–170; BP diastolic 57–110; PULSE 70–108; RESP 5–34; TEMP 36.4–36.9; O2SAT 86–98
--- NOTE | 2021-06-13 04:37 | PC.NURSE ---
Shift Note Frequent safety and comfort rounds continue. Orders and/or nursing care completed as indicated. Patient monitored for response to intervention and treatment(s). Education provided includes fall precautions, medications with side effects, S/S to report. Patient verbalized understanding of education. Lines and tubes patent. Incision clean and dry. NPO after MN. Bilateral fem groins clipped and prepped for AM procedure. Pt approx between 00:00 and 00:20 Pt became bradycardic with low HR 46 and recovered back to 80-90 bpm, with BP WNL. Patient placed on 2.5L per NC for episodes of sleep apnea. Will continue to monitor.
[2021-06-13 05:34] LABS: Basophils # 0.1 10^3/uL (0.0-0.1); Basophils % 0.7 %; Eosinophils # 0.2 10^3/uL (0.0-0.8); Eosinophils % 1.7 %; Hematocrit 26.8 % (42.0-52.0); Hemoglobin 8.3 g/dL (11.7-16.6); Lymphocytes # 1.4 10^3/uL (0.8-4.8); Lymphocytes % 13.3 %; Mean Corpuscular Hemoglobin 26.8 pg (28.0-34.0); Mean Corpuscular Volume 86.5 fl (80-94); Mean Platelet Volume 10.3 fL (7.4-10.4); Monocytes # 1.1 10^3/uL (0.2-0.9); Monocytes % 9.8 %; Neutrophils # 7.95 10^3/uL (1.8-7.7); Neutrophils % 73.2 %; Nucleated Red Blood Cells % 0 %; Platelet Count 286 10^3/cmm (130-400); Red Cell Distribution Width 18.6 % (12.1-15.1); White Blood Count 10.9 10^3/uL (4.0-10.0)
[2021-06-13 06:04] LABS: Alanine Aminotransferase < 5 U/L (0-41); Albumin Level 3.5 g/dL (3.5-5.2); Alkaline Phosphatase 133 IU/L (40-130); Anion Gap 23.6 (5-19); Aspartate Amino Transferase 13 U/L (0-40); Blood Urea Nitrogen 67 mg/dL (6-20); Calcium 8.4 mg/dL (8.5-10.5); Carbon Dioxide 22 mmol/L (22-29); Chloride 93 mmol/L (98-107); Globulin 2.9 g/dL (1.3-4.6); Glomerular Filtration Rate 5.1 mL/min (90-130); Glucose 99 mg/dL (65-115); Magnesium 2.3 mg/dL (1.7-2.3); Osmolality Calculated 297 mOsm/kg (285-295); Phosphorus 6.5 mg/dL (2.5-4.5); Potassium 4.6 mmol/L (3.5-5.1); Sodium 134 mmol/L (136-145); Total Bilirubin 0.3 mg/dL (0.15-1.2); Total Protein 6.4 g/dL (6.6-8.7)
--- NOTE | 2021-06-13 06:31 | PM.PN ---
Subjective Subjective: Interval history: The patient says he is ready to proceed with his dialysis catheter placement. He says he has no questions. He is hoping we can get done soon so he can eat breakfast. Vitals/I&O/Wt Last Vital Signs Temp 97.8 F 06/13/21 04:01 Pulse 83 06/13/21 05:49 Resp 13 06/13/21 04:01 BP 138/82 06/13/21 04:01 Pulse Ox 94 06/13/21 04:01 06/12/21 06/12/21 06/13/21 14:59 22:59 06:59 Intake Total 1050 / 1500 450 / 1500 0 / 1500 Output Total 100 / 225 125 / 225 Balance 1050 / 1275 350 / 1275 -125 / 1275 Weight last 48 hrs Weight 229 lb 11.2 oz Weight 218 lb 3.2 oz Physical Exam Urinary Catheter Management: Blue: Cath Placed During This Visit: yes Reason for Continuing Indwelling Catheter: Accurate Measurement of Urinary Output in Critically Ill Patients Urinary Catheter Date of Insertion: 06/10/21 Urinary Catheter Time of Insertion: 16:10 Data : 06/13/21 05:13 06/13/21 05:13 Micro: Microbiology 06/09/21 10:28 Blood Culture - Final Blood Methicillin Resis Staph Aureus 06/09/21 10:25 Blood Culture - Final Blood Methicillin Resis Staph Aureus 06/12/21 01:20 MRSA Culture - Final Nose 06/10/21 16:20 Catheter Tip Culture - Final Other Source Methicillin Resis Staph Aureus 06/11/21 19:10 Gram Stain - Final Arm - #2 06/11/21 03:05 Blood Culture - Preliminary Blood NEGATIVE TO DATE 06/11/21 03:05 Blood Culture - Preliminary Blood NEGATIVE TO DATE A&P Assessment and plan (1) ESRD (end stage renal disease) on dialysis: Temporary dialysis catheter placement planned for this morning. Status: Acute Attestations Medical Necessity Statement*: See admitting service's notation. Coding Level of Care Code Acute Electrical Design Technician for Glendy Sanchez Diagnoses ESRD (end stage renal disease) on dialysis N18.6; Z99.2
--- NOTE | 2021-06-13 06:50 | ANE.PACU2 ---
Inpatient post-anesthesia follow up: Airway intact: Yes Vital signs: Temperature 97.8 F Pulse Rate 83 Respiratory Rate 13 Blood Pressure 138/82 Pulse Oximetry 94 Oxygen Delivery Me thod [ Nasal Cannula Current Rate & Del salbador] Oxygen Delivery Me thod Nasal Cannula Oxygen Flow Rate [ Current Rate 4 & Delivery] Oxygen Flow Rate 2 Fraction of Inspir ed Oxygen 2 Hydration adequate: Yes Nausea and vomiting: No
--- NOTE | 2021-06-13 07:27 | P.OP_ITS ---
Operative Report Date of procedure: June 13, 2021 Pre-op diagnosis: Preop Diagnosis End-stage renal disease, in need of dialysis catheter. Preop Diagnosis Preop Diagnosis: MRSA bacteremia, suspected hemodialysis catheter infection. Post-op diagnosis: Same. Procedure done: Placement of a right femoral 12 [place] Arrow[place] hemodialysis catheter. Specimens removed/disposition: None. Surgeon: General Surgery Pablito Sams MD Anesthesia: Other (MAC converted to general anesthesia by LMA.) Estimated blood loss: Less than 10 mL. Complications: None. Procedure: The patient was brought to the operating room and was placed in a supine positio n on the operating room table. A monitored anesthetic was induced. Despite multiple medications, the patient remained somewhat restless and so he was eventually converted to general anesthesia by means of a laryngeal mask airway. The femoral regions were prepped and draped in a sterile fashion. The right femoral vein was accessed with a needle and syringe as evidenced by the return of dark nonpulsatile blood. The J-wire was easily passed down the needle and the needle was removed. A small incision was made at the skin at the entrance point of the wire and then the tract was sequentially dilated with the dilators that came in the hemodialysis kit. The 12 [place] dual-lumen hemodialysis catheter was then placed over the wire into the vein and the wire was removed. The ports aspirated and flushed easily. The catheter was sewn in place with sutures of 3-0 silk. Heparin solution was left in the lumens at the close of the procedure and the site was dressed. The patient was taken to the recovery area in stable condition postoperatively.
--- NOTE | 2021-06-13 08:09 | ANES.PREANE2 ---
Pre-Anesthetic Assessment Height/Weight: Height 1.85 m Weight 104.19 kg Temp Pulse Resp BP Pulse Ox 98.3 F 88 16 151/89 95 06/13/21 07:52 06/13/21 07:52 06/13/21 07:52 06/13/21 07:52 06/13/21 07:52 Preop Diagnosis: crf Operation Date: 06/10/21 17:25 Proposed Procedures p Dialysis Catheter Removal Hemodialysis Catheter Removal(Not Applicable) - Pablito Sams MD Operation Date: 06/11/21 17:55 Proposed Procedures p Irrigation debridement right forearm(Right) - Jasbir Coelho DO Operation Date: 06/13/21 07:00 Proposed Procedures p Femoral dialysis catheter insertion(Not Applicable) - Pablito Sams MD Familial anesthetic complications: None Was Beta Rupali taken within 24 hours: N/A Was Clonidine taken within 24 hours: N/A Social Tobacco and No alcohol Exam alert, oriented x 3 and regular rate & rhythm Airway Submandibular: within normal limits Cervical ROM: within normal limits Mallampati: Class II Dentition: chipped CV/HEM Congestive Heart Failure, Hypertension and Murmur (MR) Chronic Renal Failure GI Gastroesophageal Reflux Disease Anesthetic Plan ASA status: 3 Anesthesia: Choice Risk of > 500 ml blood loss (7ml/kg in children): No Medications/Allergies Home Medications Medication Instructions Recorded Confirmed Last Taken Type furosemide 80 mg tablet 80 mg PO BID 04/09/21 06/07/21 Unknown History hydralazine 100 mg tablet 100 mg PO TID 04/09/21 06/07/21 Unknown History minoxidil 10 mg tablet 5 mg PO DAILY 04/09/21 06/07/21 Unknown History pantoprazole 40 mg tablet,delayed 40 mg PO DAILY 04/09/21 06/07/21 Unknown History release vit B,C-folic ac 800 mcg-zinc 12.5 1 tab PO DAILY 04/09/21 06/07/21 Unknown History mg-selen-D3 2,000 unit-vit E tablet (RenaPlex-D) carvedilol 25 mg tablet 25 mg PO BID 06/07/21 06/07/21 Unknown History lactulose 10 gram/15 mL oral 30 ml PO DAILY PRN 06/07/21 06/07/21 Unknown History solution (Generlac) nifedipine 90 mg tablet,extended 90 mg PO DAILY 06/07/21 06/07/21 Unknown History release Allergies Allergy/AdvReac Type Severity Reaction Status Date / Time strawberry Allergy Mild ALGY-Rash Unverified 06/07/21 16:24 Current Medications Generic Name Dose Route Start Last Admin Trade Name Rodríguezq PRN Reason Stop Dose Admin Acetaminophen 650 mg 06/07/21 16:38 06/11/21 10:10 Acetaminophen 325 Mg Tablet PO 650 mg Q6H PRN Administration Mild/Mod Pain Or Temp >/= 101 Carvedilol 25 mg 06/10/21 21:00 06/12/21 20:36 Carvedilol 25 Mg Tablet PO 25 mg BID@0900,2100 VASHTI Administration Clonidine HCl 1 patch 06/10/21 10:00 06/10/21 11:44 Clonidine 0.1 Mg/24 Hr Patch TRANSDERMA 1 patch Q7D VASHTI Administration Ferrous Gluconate 324 mg 06/10/21 18:00 06/12/21 17:43 Ferrous Gluconate 324 Mg Tablet PO 324 mg BIDWM VASHTI Administration Furosemide 60 mg 06/09/21 10:00 06/12/21 21:08 Furosemide 10 Mg/Ml Sdv 10ml IVP 60 mg Q12H VASHTI Administration Heparin Sodium (Porcine) 5,000 unit 06/08/21 20:00 06/12/21 20:33 Heparin 5,000 Unit/Ml Inj 1 Ml SUBCUT 5,000 unit Q12H VASHTI Administration Hydralazine HCl 100 mg 06/07/21 21:00 06/12/21 20:36 Hydralazine 50 Mg Tablet PO 100 mg TID VASHTI Administration Vancomycin HCl 1,000 mg/ 250 mls @ 250 mls/hr 06/09/21 17:00 06/10/21 06:20 Sodium Chloride IV Infused Q48H VASHTI Infusion Minoxidil 5 mg 06/07/21 21:00 06/12/21 09:29 Minoxidil 10 Mg Tablet PO 5 mg DAILY VASHTI Administration Nifedipine 90 mg 06/08/21 09:00 06/12/21 09:30 Nifedipine Er (24 Hr) 30 Mg Tablet PO 90 mg DAILY VASHTI Administration Ondansetron HCl 4 mg 06/07/21 16:38 06/08/21 20:32 Ondansetron 2 Mg/Ml Sdv 2 Ml IVP 4 mg Q8H PRN Administration vomiting, or N/V if npo Oxycodone/Acetaminophen 1 tab 06/09/21 16:07 06/12/21 22:17 Oxycodone-Apap 5-325 Mg Tablet PO 1 tab Q6H PRN Administration MODERATE PAIN Pantoprazole Sodium 40 mg 06/08/21 09:00 06/12/21 09:[address] 40 Mg Tablet PO 40 mg DAILY VASHTI Administration Sevelamer Carbonate 1,600 mg 06/12/21 09:00 06/12/21 20:34 Sevelamer 800 Mg Tablet PO 1,600 mg TID VASHTI Administration PFSH Anesthesia Medical History Alport syndrome Dialysis AV fistula malfunction Diastolic heart failure Hemodialysis catheter infection HTN (hypertension) MRSA bacteremia Surgical History Fistula Left forearm S/P hemodialysis catheter insertion Multiple Status post dialysis Family History Other ESRD (end stage renal disease) Social History Smoking and tobacco status: never smoked Alcohol intake: never Substance/Drug Use: former Other details last substance use: Marijuana. Denies any other. Denies IVDU. Lives independently: Yes Household members: spouse Marital status: Current occupational status: unemployed Data Anesthesia : 06/13/21 05:13 06/13/21 05:13 Short CBC 06/12/21 06/13/21 Range/Units 03:26 05:13 WBC 12.1 H 10.9 H (4.0-10.0) 10^3/uL Hgb 10.1 L 8.3 L (11.7-16.6) g/dL Hct 32.5 L 26.8 L (42.0-52.0) % MCV 86.4 86.5 (80-94) fl Plt Count 286 286 (130-400) 10^3/cmm Neut % (Auto) 91.8 73.2 % Neut # (Auto) 11.09 H 7.95 H (1.8-7.7) 10^3/uL BMP 06/12/21 06/13/21 03:26 05:13 Sodium 131 L 134 L Potassium 5.2 H 4.6 Chloride 91 L 93 L Carbon Dioxide 19 L 22 BUN 55 H 67 H Creatinine 9.6 H* 11.5 H* Glucose 136 H 99 Calcium 9.7 8.4 L Liver Function 06/12/21 06/13/21 Range/Units 03:26 05:13 Total Bilirubin 0.3 0.3 (0.15-1.2) mg/dL AST 11 13 (0-40) U/L ALT 10 < 5 (0-41) U/L Alkaline Phosphatase 130 133 H (40-130) IU/L Albumin 3.6 3.5 (3.5-5.2) g/dL Urine 06/12/21 Range/Units 02:05 Urine Color Yellow (Yellow) Urine Appearance Cloudy (CLEAR) Urine pH 9 H (5-7) Ur Specific [place] 1.015 (1.005-1.030) Urine Protein 3+ H (Negative) Urine Glucose (UA) 1+ H (Normal) Urine Ketones Negative (Negative) Urine Nitrate Negative (Negative) Urine Bilirubin Neg (Negative) Ur Leukocyte Esterase 2+ H (Negative) Urine RBC 25-40 H (0-2) /hpf Urine WBC 10-15 H (0-5) /hpf Microbiology 06/09/21 10:28 Blood Culture - Final Blood Methicillin Resis Staph Aureus 06/09/21 10:25 Blood Culture - Final Blood Methicillin Resis Staph Aureus 06/12/21 01:20 MRSA Culture - Final Nose 06/10/21 16:20 Catheter Tip Culture - Final Other Source Methicillin Resis Staph Aureus 06/11/21 19:10 Gram Stain - Final Arm - #2 06/11/21 03:05 Blood Culture - Preliminary Blood NEGATIVE TO DATE 06/11/21 03:05 Blood Culture - Preliminary Blood NEGATIVE TO DATE Cardiac Studies: Echocardiogram 06/08/21 Transesophageal Echocardiogram 06/09/21
--- NOTE | 2021-06-13 08:11 | ANE.PACU2 ---
Inpatient post-anesthesia follow up: Airway intact: Yes Vital signs: Temperature 98.3 F Pulse Rate 88 Respiratory Rate 16 Blood Pressure 151/89 Pulse Oximetry 95 Oxygen Delivery Me thod [ Nasal Cannula Current Rate & Del salbador] Oxygen Delivery Me thod Room Air Oxygen Flow Rate [ Current Rate 4 & Delivery] Oxygen Flow Rate 4 Fraction of Inspir ed Oxygen 2 Hydration adequate: Yes Nausea and vomiting: No Pain level: 1 Mental status: Baseline
[2021-06-13] MEDS: oxyCODONE-APAP 5-325 mg Tablet 1 TAB PO (08:34)
[2021-06-13] MEDS: hyDRALAzine 50 mg Tablet 100 MG PO ×3 (08:35→20:26)
[2021-06-13] MEDS: heparin 5,000 unit/mL INJ 1 mL 5000 UNIT SUBCUT (08:35)
[2021-06-13] MEDS: pantoprazole DR 40 mg Tablet PO (08:36)
[2021-06-13] MEDS: sevelamer 800 mg Tablet 1600 MG PO ×3 (08:36→20:26)
[2021-06-13] MEDS: ferrous gluconate 324 mg Tablet PO ×2 (08:36→17:58)
[2021-06-13] MEDS: carvedilol 25 mg Tablet PO ×2 (08:36→20:26)
[2021-06-13] MEDS: NIFEdipine ER (24 hr) 30 mg Tablet 90 MG PO (08:36)
[2021-06-13] MEDS: minoxidil 10 mg Tablet 5 MG PO (08:37)
[2021-06-13] MEDS: FUROsemide 10 mg/mL SDV 10mL 60 MG IVP ×2 (10:21→23:04)
--- NOTE | 2021-06-13 10:50 | PC.NURSE ---
HD cath just inserted this am. Pt just asked when he could get the catheter out. Reminded pt that the plan was to get dialysis for 2 days then they will discuss removing it, Wednesday or Wednesday. Also reminded pt that he was to stay in the bed for most of the weekend due to that catheter. Pt replied I will just take it out myself. I need my oxygen. This nurse discussed with pt his O2 sats (99%) and he really is not in need of oxygen.
--- NOTE | 2021-06-13 10:59 | PC.NURSE ---
Pt agitated demanding his oxygen . Respirations are 16, O2 sats are 97% , while he is on room air. Discussed with pt no medical indcatio for the nasal cannula. He replied, What ever ma'am, I will just get it my sef. I do need it.
--- NOTE | 2021-06-13 11:59 | P.PN_ITS ---
Subjective Subjective: Interval history: Mr. Ann feels much better today. Denies any fevers, chills, pain. Blood cultures from 06/11 remain negative, 06/10 with MRSA. No acute uremic symptoms. Dialysis catheter now in the groin. Hemodynamics reviewed, remained stable. Vitals/I&O/Wt Last Vital Signs Temp 98.3 F 06/13/21 07:52 Pulse 88 06/13/21 07:52 Resp 20 H 06/13/21 08:34 BP 151/89 06/13/21 07:52 Pulse Ox 91 06/13/21 08:34 06/12/21 06/13/21 06/13/21 22:59 06:59 14:59 Intake Total 450 / 1500 0 / 1500 60 / 60 Output Total 100 / 100 125 / 225 0 / 0 Balance 350 / 1400 -125 / 1275 60 / 60 Weight last 48 hrs Weight 104.19 kg Weight 98.974 kg Physical Exam Narrative: EXAM NARRATIVE: Constitutional: Awake, comfortable HEENT: Wet mucosa, no jvp, non icteric Lungs: Bilaterally clear without discernible wheeze, rales in all lung zones CVS: S1 S2, no murmurs Abdo: Soft, BS ok Ext 4: Minimal edema, peripheral perfusion with no cyanosis Neurological: Grossly non-focal Urinary Catheter Management: Blue: Cath Placed During This Visit: yes Reason for Continuing Indwelling Catheter: Accurate Measurement of Urinary Output in Critically Ill Patients Urinary Catheter Date of Insertion: 06/10/21 Urinary Catheter Time of Insertion: 16:10 Data : 06/13/21 05:13 06/13/21 05:13 Micro: Microbiology 06/11/21 19:10 Gram Stain - Final Arm - #2 Abscess Culture - Preliminary Methicillin Resis Staph Aureus 06/12/21 02:05 Urine Culture - Preliminary Urine,Clean Catch 06/09/21 10:28 Blood Culture - Final Blood Methicillin Resis Staph Aureus 06/09/21 10:25 Blood Culture - Final Blood Methicillin Resis Staph Aureus 06/12/21 01:20 MRSA Culture - Final Nose 06/10/21 16:20 Catheter Tip Culture - Final Other Source Methicillin Resis Staph Aureus A&P Assessment and plan (1) ESRD (end stage renal disease) on dialysis: Status: Acute Plan 1. ESRD Dialysis is planned for today, next treatment tomorrow morning, will consider taking out the temp dialysis catheter after this with a plan for a permacath on Wednesday or Wednesday if cultures remain negative 2. Sepsis MRSA bacteremia, infective endocarditis, with BALTAZAR consistent with echogenic density seen on the posterior mitral leaflet measuring 1 cm. On combination antibiotic therapy, lines out, permacath next week. 3. Hemodynamics Remain nicely stable 4. Anemia Hemoglobin dropped from 10.1 down to 8.3. Continue to monitor closely, would consider transfusion if less than 7. Will consider EPO as well if he becomes recalcitrant Possible downgrade to medical floor when bed available. Maco Chang MD Nephrology [phone] Patient seen and examined via telemedicine, with the assistance of the bedside RN > 25 min spent in evaluation and mgmt of patient Attestations Medical Necessity Statement*: esrd mgmt Coding Level of Care Code Acute Correctional Therapy Director for Yonig Fwd Diagnoses ESRD (end stage renal disease) on dialysis N18.6; Z99.2
--- NOTE | 2021-06-13 15:11 | P.PN_ITS ---
Subjective Subjective: Interval history: No acute events overnight. Has remained hemodynamically stable. Patient received a temporary dialysis catheter in his groin today by surgery. Plan for dialysis today. Blood cultures from 06/11 remain negative. Blood pressure is better. Discussed in detail with patient about not to try to stand up given HD catheter line in his groin. For now he is verbalized understanding Medications: Reviewed: Yes Vitals/I&O/Wt Last Vital Signs Temp 97.7 F 06/13/21 13:05 Pulse 79 06/13/21 14:00 Resp 18 06/13/21 13:05 BP 170/110 06/13/21 13:05 Pulse Ox 91 06/13/21 08:34 06/13/21 06/13/21 06/13/21 06:59 14:59 22:59 Intake Total 0 / 1500 60.15 / 60.15 Output Total 125 / 225 0 / 0 Balance -125 / 1275 60.15 / 60.15 Weight last 48 hrs Weight 104.19 kg Weight 98.974 kg Physical Exam Const: COMMON NORMALS: no acute distress, patient oriented x3 and alert GENERAL APPEARANCE: cooperative ORIENTATION/CONSCIOUSNESS: Yes awake OTHER: Very [place]. HENMT: COMMON NORMALS: oropharynx normal Neck/C-Spine: COMMON NORMALS: no JVD Chest: OTHER: R chest tunneled catheter, currently do not appreciate erythema or drainage from the access site or significant swelling Resp: COMMON NORMALS: normal respiratory effort and clear to auscultation bilaterally AUSCULTATION: clear to auscultation bilaterally Cardio: COMMON NORMALS: no JVD, regular rhythm, S1 normal heart sound present, S2 normal heart sound present and No murmurs present (Cardio) RHYTHM: regular rhythm HEART SOUNDS: S1 normal heart sound present and S2 normal heart sound present GI: COMMON NORMALS: Normal to inspection, nondistended, normoactive bowel sounds present and Soft to palpation INSPECTION: Yes abdominal distension PALPATION: Yes Soft to palpation and Yes Tenderness to palpation present (GI) (Mild-moderate nonlocalized, reports chronic) Extremity: COMMON NORMALS: no joint enlargement and no pedal edema OTHER: Left forearm fistula, without any thrill, R forearm mildly swollen compared to L. Moving fingers, but difficulty with clinical specialty rep apart from adducting thumb. No loss of sensation or paresthesia. Warm and perfused. Neuro: COMMON NORMALS: patient oriented x3 and moves all extremities SENSORIUM/ORIENTATION: Yes alert Skin: COMMON NORMALS: no rashes or lesions noted GENERAL SKIN EXAM: no rashes or lesions noted OTHER: Diffuse excoriated lesions on face, LE, he states started after strawberry allergy Urinary Catheter Management: Blue: Cath Placed During This Visit: yes Reason for Continuing Indwelling Catheter: Accurate Measurement of Urinary Output in Critically Ill Patients Urinary Catheter Date of Insertion: 06/10/21 Urinary Catheter Time of Insertion: 16:10 Data : 06/13/21 05:13 06/13/21 05:13 Micro: Microbiology 06/11/21 19:10 Anaerobic Culture - Preliminary Arm - #1 06/11/21 19:10 Gram Stain - Final Arm - #2 Abscess Culture - Preliminary Methicillin Resis Staph Aureus 06/12/21 02:05 Urine Culture - Preliminary Urine,Clean Catch 06/09/21 10:28 Blood Culture - Final Blood Methicillin Resis Staph Aureus 06/09/21 10:25 Blood Culture - Final Blood Methicillin Resis Staph Aureus 06/12/21 01:20 MRSA Culture - Final Nose 06/10/21 16:20 Catheter Tip Culture - Final Other Source Methicillin Resis Staph Aureus A&P Assessment and plan (1) 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 Status: Acute (4) Hemodialysis catheter infection: Status: Acute Qualifiers: Encounter type: subsequent encounter Qualified Code(s): T82.7XXD - Infection and inflammatory reaction due to other cardiac and vascular devices, implants and grafts, subsequent encounter (5) Abscess of right forearm: Status: Acute (6) MRSA bacteremia: Status: Acute (7) Moderate mitral regurgitation: New finding. Most likely secondary to infective endocarditis. Given extensive mitral regurgitation patient will most likely need a mitral clipping versus mitral valve replacement going forward once infective endocarditis clears up or sooner if he continues to remain persistently bacteremic. Status: Acute (8) Hypoxia: Status: Acute (9) Diastolic heart failure: Status: Acute (10) Dialysis patient, noncompliant: Status: Acute (11) HTN (hypertension): Status: Acute (12) Cardiomegaly: Status: Acute (13) LVH (left ventricular hypertrophy): With history of hypertension. Not adherent with hemodialysis. I am not not certain that he is adherent with his medications at home. Continue HTN medicines. Aspirin, beta-lucas. Stress test when able. Unclear benefit of statin in setting of ESRD on dialysis. Status: Acute (14) Severe tricuspid regurgitation: Status: Acute (15) Ascites: Most likely from diastolic heart failure. Seems to be improving with regular dialysis. Check hepatitis panel, HIV. Status: Acute (16) Acute hyperkalemia: Resolved. On hemodialysis. Check daily BMP. 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 BALTAZAR results consistent with echogenic density seen on posterior mitral leaflet, posterior tricuspid valve measuring 1 to 0.5 cm in size suggestive of endocarditis. Post I&D of forearm abscess on 06/11. HD catheter removed 06/10 Blood cultures from 06/09 also positive. Repeat blood cultures sent 06/11 so far negative Trying to give line holiday. Temporal dialysis catheter placed on 06/13 For now continue with vancomycin. Repeat dose of vancomycin postdialysis today. Continue to check vancomycin random level daily for now. Target levels 15-20. Dose vancomycin accordingly. We will consult orthopedics for I&D versus drain for right forearm abscess. CKD: Appreciate nephrology recommendations. Plan for line holiday. Removal of HD catheter on 06/10. Long-term peritoneal dialysis. Peritoneal dialysis catheter hopeful to be placed early next week if blood cultures cleared up by then. Monitor BMP daily. Hyperkalemia seems to be resolved. Hypoxia: COVID-19 PCR negative.? Most likely secondary to congestive diastolic heart failure. Perfusion study low probability for PE. Hemodialysis with negative fluid balance. Continue with Lasix to 60 mg IV every 12 hourly. Monitor strict input output charting. Hypertension: Goal blood pressure less than 140/90 mmHg. Blood pressure better controlled. Continue with home dose of hydralazine, nifedipine. Continue with Coreg 25 mg twice daily and clonidine 0.1 mg patch. Full code. Dialysis regular diet. Protonix for PUD prophylaxis. Heparin for DVT prophylaxis. Guarded prognosis. Discharge planning: Will most likely need IV antibiotics for 6 weeks once blood cultures clear up. Most likely will need placement for IV antibiotics given history of drug abuse will be difficult to send patient out with a PICC line. Will consult case management. Patient will also need new peritoneal dialysis catheter teaching before discharge and also set up as an outpatient. Plan for today: Continue with current antihypertensives. Continue to monitor blood pressures. Temporary dialysis catheter to be placed in groin. One session of dialysis today. Most likely repeat dialysis tomorrow. Continue to monitor blood cultures. 1 dose of vancomycin postdialysis. Repeat vancomycin random level tomorrow morning. Attestations Medical Necessity Statement*: Requires further hospitalization for management of MRSA endocarditis in setting of CKD on maintenance hemodialysis, catheter in fection secondary to IV drug abuse. Time Spent in Patient Care: Greater than 35 minutes Coding Level of Care Code Acute Terrazzo Grinder for [facility] Fwd Diagnoses Endocarditis due to Staphylococcus I33.0; B95.8 Moderate to severe mitral regurgitation I34.0 Right forearm pain M79.631 Hemodialysis catheter infection T82.7XXD Encounter type: subsequent encounter Abscess of right forearm L02.413 MRSA bacteremia R78.81; B95.62 Moderate mitral regurgitation I34.0 Hypoxia R09.02 Diastolic heart failure I50.30 Dialysis patient, noncompliant Z91.15 HTN (hypertension) I10 Cardiomegaly I51.7 LVH (left ventricular hypertrophy) I51.7 Severe tricuspid regurgitation I07.1 Ascites R18.8 Acute hyperkalemia E87.5 Uremia N19
--- NOTE | 2021-06-13 16:40 | PC.NURSE ---
MAR delays related to pt finishing dialysis.
[2021-06-13] MEDS: vancomycin 1,000 MG in sodium chloride 0.9% 250 ML 250 MG IV (17:01)
[2021-06-13] MEDS: acetaminophen 325 mg Tablet 650 MG PO ×2 (17:57→20:31)
--- NOTE | 2021-06-13 18:00 | PM.PN ---
Subjective Subjective: Interval history: Infectious disease progress note: Shiley placed to initiate temporary HD. No new complaints, receiving HD, no acute issues. Drain removed from right hand. Reports improved pain and mobility thereafter. Blood cultures remain negative from 126 thus far. Repeat blood culture sent this morning. Vitals/I&O/Wt Last Vital Signs Temp 97.7 F 06/13/21 13:05 Pulse 79 06/13/21 14:00 Resp 18 06/13/21 13:05 BP 170/110 06/13/21 13:05 Pulse Ox 91 06/13/21 08:34 06/13/21 06/13/21 06/13/21 06:59 14:59 22:59 Intake Total 0 / 1500 60.15 / 60.15 Output Total 125 / 225 0 / 0 Balance -125 / 1275 60.15 / 60.15 Weight last 48 hrs Weight 104.19 kg Weight 98.974 kg Physical Exam Narrative: EXAM NARRATIVE: GEN: Awake, alert and oriented, no acute distress CVS: S1S2 N RS: CTA B/L Abd: Soft, nt/nd , bs+ MACHINE SHORTHAND REPORTER: no focal neuro deficits EXT: right extensor forearm and wrist tender, warm and eryhthematous. Urinary Catheter Management: Blue: Cath Placed During This Visit: yes Reason for Continuing Indwelling Catheter: Accurate Measurement of Urinary Output in Critically Ill Patients Urinary Catheter Date of Insertion: 06/10/21 Urinary Catheter Time of Insertion: 16:10 Data : 06/14/21 04:10 06/14/21 04:10 Micro: Microbiology 06/11/21 19:10 Anaerobic Culture - Preliminary Arm - #1 06/11/21 19:10 Gram Stain - Final Arm - #2 Abscess Culture - Preliminary Methicillin Resis Staph Aureus 06/12/21 02:05 Urine Culture - Preliminary Urine,Clean Catch 06/09/21 10:28 Blood Culture - Final Blood Methicillin Resis Staph Aureus 06/09/21 10:25 Blood Culture - Final Blood Methicillin Resis Staph Aureus 06/12/21 01:20 MRSA Culture - Final Nose 06/10/21 16:20 Catheter Tip Culture - Final Other Source Methicillin Resis Staph Aureus A&P Assessment and plan (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 #Positive blood cultures thus far on 06/07, 06/09. Thus far negative from 126. Continue vancomycin, with target trough of 15-20. Difficult to say if primary source if positive blood cx currently is endocarditis from recent line infection 6-7 months ago vs if current infection is precipitated by infected line leading to endocarditis. Additionally patient has a right forearm abscess on CT imaging with surrounding cellulitis which is now status post drainage on 06/11. Culture from this abscess additionally with MRSA. Status post removal of tunneled HD catheter on 06/10. Currently has temporary HD access through which dialysis will continue until a tunneled HD cath is placed again. Recommend to ensure negative cultures for at least 72 hours prior to placement of new tunneled HD cath. 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 BALTAZAR with echogenic lesions on the anterior mitral annulus, posterior mitral leaflet and posterior tricuspid valve measuring between 1 to 0.5 cm in size suggestive of endocarditis. Features of severe MR with a regurgitant fraction of 69%. Moderately severe tricuspid regurgitation. And a possible small patent ramos ovale. For now recommend to continue IV vancomycin for at least 6 weeks course from clearance of blood culture. Thereafter we will follow patient in infectious disease clinic and switch to oral antibiotics for suppression until valvular surgery can be performed given recurrence of bacteremia. Attestations Medical Necessity Statement*: Continue need for IV antibiotics, per primary team. Coding Level of Care Code Acute Business Continuity Manager for Glendy Sanchez Diagnoses Endocarditis due to Staphylococcus I33.0; B95.8 Moderate to severe mitral regurgitation I34.0 Right forearm pain M79.631 Hemodialysis catheter infection T82.7XXD Encounter type: subsequent encounter Abscess of right forearm L02.413
--- NOTE | 2021-06-13 19:05 | PM.PN ---
Subjective Subjective: Interval history: overall appear to be stable vital tabares. Patient is getting dialysis. Medications: Reviewed: Yes Medication Review Details: Current Medications Acetaminophen (Acetaminophen 325 Mg Tablet) 650 mg PO Q6H PRN PRN Reason: Mild/Mod Pain Or Temp >/= 101 Last Admin: 06/11/21 10:10 Dose: 650 mg Documented by: Carvedilol (Carvedilol 25 Mg Tablet) 25 mg PO BID@0900,2100 [facility] Last Admin: 06/12/21 09:32 Dose: 25 mg Documented by: Clonidine HCl (Clonidine 0.1 Mg/24 Hr Patch) 1 patch TRANSDERMA Q7D [facility] Last Admin: 06/10/21 11:44 Dose: 1 patch Documented by: Ferrous Gluconate (Ferrous Gluconate 324 Mg Tablet) 324 mg PO BIDWM [facility] Last Admin: 06/12/21 17:43 Dose: 324 mg Documented by: Furosemide (Furosemide 10 Mg/Ml Sdv 10ml) 60 mg IVP Q12H [facility] Last Admin: 06/12/21 09:34 Dose: 60 mg Documented by: Heparin Sodium (Porcine) (Heparin 5,000 Unit/Ml Inj 1 Ml) 5,000 unit SUBCUT Q12H [facility] Last Admin: 06/12/21 09:28 Dose: 5,000 unit Documented by: Heparin Sodium (Porcine) (Heparin, Porcine 1,000 Unit/Ml Inj 10 Ml) 10,000 unit HE ONCE PRN PRN Reason: Dialysis Hydralazine HCl (Hydralazine 50 Mg Tablet) 100 mg PO TID [facility] Last Admin: 06/12/21 15:58 Dose: 100 mg Documented by: Sodium Chloride (Sodium Chloride 0.9%) 1,000 mls @ 0 mls/hr IV .Q0M PRN PRN Reason: hypotension or symptomatic Vancomycin HCl 1,000 mg/ (Sodium Chloride) 250 mls @ 250 mls/hr IV Q48H [facility] Last Infusion: 06/10/21 06:20 Dose: Infused Documented by: Epoetin Avila 3,000 unit/ N/A 0.15 mls @ 0 mls/hr IVP QMWF [facility] Cefazolin Sodium 2,000 mg/ (Sodium Chloride) 60 mls @ 100 mls/hr IV ONCE ONE Stop: 06/13/21 07:35 Minoxidil (Minoxidil 10 Mg Tablet) 5 mg PO DAILY [facility] Last Admin: 06/12/21 09:29 Dose: 5 mg Documented by: Nifedipine (Nifedipine Er (24 Hr) 30 Mg Tablet) 90 mg PO DAILY [facility] Last Admin: 06/12/21 09:30 Dose: 90 mg Documented by: Ondansetron HCl (Ondansetron 2 Mg/Ml Sdv 2 Ml) 4 mg IVP Q8H PRN PRN Reason: vomiting, or N/V if npo Last Admin: 06/08/21 20:32 Dose: 4 mg Documented by: Oxycodone/Acetaminophen (Oxycodone-Apap 5-325 Mg Tablet) 1 tab PO Q6H PRN PRN Reason: MODERATE PAIN Last Admin: 06/12/21 16:00 Dose: 1 tab Documented by: Pantoprazole Sodium (Pantoprazole Dr 40 Mg Tablet) 40 mg PO DAILY [facility] Last Admin: 06/12/21 09:29 Dose: 40 mg Documented by: Sevelamer Carbonate (Sevelamer 800 Mg Tablet) 1,600 mg PO TID [facility] Last Admin: 06/12/21 15:58 Dose: 1,600 mg Documented by: Vitals/I&O/Wt Last Vital Signs Temp 97.7 F 06/13/21 13:05 Pulse 79 06/13/21 14:00 Resp 18 06/13/21 13:05 BP 170/110 06/13/21 13:05 Pulse Ox 91 06/13/21 08:34 06/13/21 06/13/21 06/13/21 06:59 14:59 22:59 Intake Total 0 / 1500 990.15 / 990.15 300 / 1290.15 Output Total 125 / 225 0 / 0 2650 / 2650 Balance -125 / 1275 990.15 / 990.15 -2350 / -1359.85 Weight last 48 hrs Weight 229 lb 11.2 oz Weight 218 lb 3.2 oz Physical Exam Chest: OTHER: GENERAL: Patient is alert, awake and oriented x3. NECK: No jugular vein distension. HEENT: No cyanosis. No icterus. No pallor. HEART: Regular S1 and S2. No murmur, rub or gallop. LUNGS: Clear to auscultate bilaterally. ABDOMEN: Soft, nontender and nondistended. Positive bowel sounds. No guarding, rebound or tenderness. CENTRAL NERVOUS SYSTEM: Grossly nonfocal. EXTREMITIES: Lower extremities without edema bilaterally. Urinary Catheter Management: Blue: Cath Placed During This Visit: yes Reason for Continuing Indwelling Catheter: Accurate Measurement of Urinary Output in Critically Ill Patients Urinary Catheter Date of Insertion: 06/10/21 Urinary Catheter Time of Insertion: 16:10 Data : 06/13/21 05:13 06/13/21 05:13 Micro: Microbiology 06/11/21 19:10 Anaerobic Culture - Preliminary Arm - #1 06/11/21 19:10 Gram Stain - Final Arm - #2 Abscess Culture - Preliminary Methicillin Resis Staph Aureus 06/12/21 02:05 Urine Culture - Preliminary Urine,Clean Catch 06/09/21 10:28 Blood Culture - Final Blood Methicillin Resis Staph Aureus 06/09/21 10:25 Blood Culture - Final Blood Methicillin Resis Staph Aureus 06/12/21 01:20 MRSA Culture - Final Nose 06/10/21 16:20 Catheter Tip Culture - Final Other Source Methicillin Resis Staph Aureus A&P Assessment and plan (1) Endocarditis due to Staphylococcus: Continue antibiotics appear to be stable Status: Acute (2) Staphylococcus aureus bacteremia: Status: Deleted (3) Severe mitral regurgitation: Patient may require surgical intervention months clear infection, patient is appear to be stable Status: Acute (4) Tricuspid regurgitation: Continue IV antibiotic Status: Acute (5) Hemodialysis catheter infection: Patient is planning to have the dialysis catheter placement today Status: Acute Qualifiers: Encounter type: subsequent encounter Qualified Code(s): T82.7XXD - Infection and inflammatory reaction due to other cardiac and vascular devices, implants and grafts, subsequent encounter (6) ESRD (end stage renal disease) on dialysis: Management as per the nephrology service Status: Acute Plan Other problems are Hypertension Multiple substance abuse Continue on the current treatment pressures Attestations Medical Necessity Statement*: Patient require continuation hospitalization for above defined care Coding Level of Care Code Established Pt Acute Supply Chain Assistant for Glendy Sanchez Patient Type Established History Detailed Exam Detailed Medical Decision Making Moderate Complexity Diagnoses Endocarditis due to Staphylococcus I33.0; B95.8 Staphylococcus aureus bacteremia R78.81; B95.61 Severe mitral regurgitation I34.0 Tricuspid regurgitation I07.1 Hemodialysis catheter infection T82.7XXD Encounter type: subsequent encounter ESRD (end stage renal disease) on dialysis N18.6; Z99.2
--- NOTE | 2021-06-13 20:14 | PC.NURSE ---
Pt non-compliant with bed restrictions due to new HD cath placed in right groin. Received report from Talia, she provided extensive education on complete bedrest, that includes not disconnecting himself from the monitor and ambulating self around room. Patient verbalized understanding of this education. During my bedside round patient had disconnected self from monitors and out of bed, strengthening his room. Assisted patient lewis into bed, upon assessment of catheter, both lumens were filled with blood. Notified Dr. Chapin who came to beside to reenforce activity restrictions. Per Dr. Chapin called dialysis nurse Kelsey Bond, who stated to pulled back 2.5ml of blood from catheter to assure no clots and than flush lumens with saline flushes. Confirmed this with Dr. Chapin and also received order to hold heparin SQ due to heparin that was mixed into the lumens and possibly into the patients system.
[2021-06-14] VITALS (33 sets, daily range): BP systolic 125–185; BP diastolic 66–114; PULSE 48–106; RESP 9–24; TEMP 36.4–37.1; O2SAT 88–99
[2021-06-14] MEDS: ondansetron 2 mg/ML SDV 2 mL 4 MG IVP (04:14)
[2021-06-14 05:58] LABS: Basophils # 0.1 10^3/uL (0.0-0.1); Basophils % 0.8 %; Eosinophils # 0.3 10^3/uL (0.0-0.8); Eosinophils % 2.7 %; Hematocrit 27.7 % (42.0-52.0); Hemoglobin 8.6 g/dL (11.7-16.6); Lymphocytes # 1.1 10^3/uL (0.8-4.8); Lymphocytes % 10.4 %; Mean Corpuscular Volume 86.8 fl (80-94); Mean Platelet Volume 10.5 fL (7.4-10.4); Monocytes # 1.1 10^3/uL (0.2-0.9); Monocytes % 10.4 %; Neutrophils # 7.89 10^3/uL (1.8-7.7); Neutrophils % 73.4 %; Nucleated Red Blood Cells % 0 %; Platelet Count 336 10^3/cmm (130-400); Red Blood Count 3.19 10^6/uL (4.1-5.3); Red Cell Distribution Width 18.8 % (12.1-15.1); White Blood Count 10.8 10^3/uL (4.0-10.0)
--- NOTE | 2021-06-14 06:15 | PC.NURSE ---
Shift Note Frequent safety and comfort rounds continue. Orders and/or nursing care completed as indicated. Patient monitored for response to intervention and treatment(s). Education provided includes bed rest while HD cath in fem groin, incision care, S/S of infection, medications with side effects, fall precautions. Patient verbalized understanding of education and became compliant with care. He agreed to leave vyas catheter in place but strongly requests to have it removed as well as using the bedside commode. Lines and tubes in patent. Patient with event of N/V in AM, prn medication given. Will continue to monitor.
[2021-06-14 06:26] LABS: Vancomycin Random 26.1 ug/mL (20.0-40.0)
[2021-06-14 06:28] LABS: Alanine Aminotransferase < 5 U/L (0-41); Albumin Level 3.5 g/dL (3.5-5.2); Alkaline Phosphatase 103 IU/L (40-130); Anion Gap 20.3 (5-19); Aspartate Amino Transferase 11 U/L (0-40); Blood Urea Nitrogen 44 mg/dL (6-20); Calcium 8.7 mg/dL (8.5-10.5); Carbon Dioxide 26 mmol/L (22-29); Chloride 94 mmol/L (98-107); Glomerular Filtration Rate 7.4 mL/min (90-130); Glucose 84 mg/dL (65-115); Osmolality Calculated 292 mOsm/kg (285-295); Potassium 4.3 mmol/L (3.5-5.1); Sodium 136 mmol/L (136-145); Total Bilirubin 0.3 mg/dL (0.15-1.2); Total Protein 6.5 g/dL (6.6-8.7)
--- NOTE | 2021-06-14 08:07 | P.PN_ITS ---
Subjective Subjective: Interval history: No new issues. Dialysis about to commence. Vitals remain stable. No fever, chills, no chest pain. Keen to have vyas removed. Medications: Reviewed: Yes Medication Review Details: Current Medications Acetaminophen (Acetaminophen 325 Mg Tablet) 650 mg PO Q6H PRN PRN Reason: Mild/Mod Pain Or Temp >/= 101 Last Admin: 06/11/21 10:10 Dose: 650 mg Documented by: Carvedilol (Carvedilol 25 Mg Tablet) 25 mg PO BID@0900,2100 [facility] Last Admin: 06/12/21 09:32 Dose: 25 mg Documented by: Clonidine HCl (Clonidine 0.1 Mg/24 Hr Patch) 1 patch TRANSDERMA Q7D [facility] Last Admin: 06/10/21 11:44 Dose: 1 patch Documented by: Ferrous Gluconate (Ferrous Gluconate 324 Mg Tablet) 324 mg PO BIDWM [facility] Last Admin: 06/12/21 17:43 Dose: 324 mg Documented by: Furosemide (Furosemide 10 Mg/Ml Sdv 10ml) 60 mg IVP Q12H [facility] Last Admin: 06/12/21 09:34 Dose: 60 mg Documented by: Heparin Sodium (Porcine) (Heparin 5,000 Unit/Ml Inj 1 Ml) 5,000 unit SUBCUT Q12H [facility] Last Admin: 06/12/21 09:28 Dose: 5,000 unit Documented by: Heparin Sodium (Porcine) (Heparin, Porcine 1,000 Unit/Ml Inj 10 Ml) 10,000 unit HE ONCE PRN PRN Reason: Dialysis Hydralazine HCl (Hydralazine 50 Mg Tablet) 100 mg PO TID [facility] Last Admin: 06/12/21 15:58 Dose: 100 mg Documented by: Sodium Chloride (Sodium Chloride 0.9%) 1,000 mls @ 0 mls/hr IV .Q0M PRN PRN Reason: hypotension or symptomatic Vancomycin HCl 1,000 mg/ (Sodium Chloride) 250 mls @ 250 mls/hr IV Q48H [facility] Last Infusion: 06/10/21 06:20 Dose: Infused Documented by: Epoetin Avila 3,000 unit/ N/A 0.15 mls @ 0 mls/hr IVP QMWF [facility] Cefazolin Sodium 2,000 mg/ (Sodium Chloride) 60 mls @ 100 mls/hr IV ONCE ONE Stop: 06/13/21 07:35 Minoxidil (Minoxidil 10 Mg Tablet) 5 mg PO DAILY [facility] Last Admin: 06/12/21 09:29 Dose: 5 mg Documented by: Nifedipine (Nifedipine Er (24 Hr) 30 Mg Tablet) 90 mg PO DAILY [facility] Last Admin: 06/12/21 09:30 Dose: 90 mg Documented by: Ondansetron HCl (Ondansetron 2 Mg/Ml Sdv 2 Ml) 4 mg IVP Q8H PRN PRN Reason: vomiting, or N/V if npo Last Admin: 06/08/21 20:32 Dose: 4 mg Documented by: Oxycodone/Acetaminophen (Oxycodone-Apap 5-325 Mg Tablet) 1 tab PO Q6H PRN PRN Reason: MODERATE PAIN Last Admin: 06/12/21 16:00 Dose: 1 tab Documented by: Pantoprazole Sodium (Pantoprazole Dr 40 Mg Tablet) 40 mg PO DAILY [facility] Last Admin: 06/12/21 09:29 Dose: 40 mg Documented by: Sevelamer Carbonate (Sevelamer 800 Mg Tablet) 1,600 mg PO TID [facility] Last Admin: 06/12/21 15:58 Dose: 1,600 mg Documented by: Vitals/I&O/Wt Last Vital Signs Temp 98.8 F 06/14/21 07:57 Pulse 96 06/14/21 07:57 Resp 18 06/14/21 07:57 BP 148/88 06/14/21 07:57 Pulse Ox 91 06/14/21 05:00 06/13/21 06/14/21 06/14/21 22:59 06:59 14:59 Intake Total 788 / 1778.15 300 / 300 Output Total 2650 / 2650 175 / 2825 2800 / 2800 Balance -1862 / -871.85 -175 / -1046.85 -2500 / -2500 Weight last 48 hrs Weight 102.421 kg Weight 104.19 kg Physical Exam Narrative: EXAM NARRATIVE: Constitutional: Awake, comfortable HEENT: Wet mucosa, no jvp, non icteric Lungs: Bilaterally clear without discernible wheeze, rales in all lung zones CVS: S1 S2, no murmurs Abdo: Soft, BS ok Ext 4: Minimal edema, peripheral perfusion with no cyanosis Neurological: Grossly non-focal Urinary Catheter Management: Vyas: Cath Placed During This Visit: yes Reason for Continuing Indwelling Catheter: Acute Urinary Retention or Obstruction Urinary Catheter Date of Insertion: 06/10/21 Urinary Catheter Time of Insertion: 16:10 Data : 06/14/21 04:10 06/14/21 04:10 Micro: Microbiology 06/14/21 04:15 Blood Culture - Preliminary Blood SPECIMEN COLLECTED 06/14/21 04:10 Blood Culture - Preliminary Blood SPECIMEN COLLECTED 06/11/21 19:10 Anaerobic Culture - Preliminary Arm - #1 06/11/21 19:10 Gram Stain - Final Arm - #2 Abscess Culture - Preliminary Methicillin Resis Staph Aureus 06/12/21 02:05 Urine Culture - Preliminary Urine,Clean Catch A&P Assessment and plan (1) ESRD (end stage renal disease) on dialysis: Status: Acute Plan 1. ESRD Dialysis is planned for today Permacath on Wednesday/Wednesday if cultures remain negative Next dialysis on Wednesday DC vyas OK to DC fluid restriction; I'll dialyze it off 2. Sepsis MRSA bacteremia, infective endocarditis, with BALTAZAR consistent with echogenic density seen on the posterior mitral leaflet measuring 1 cm. On combination antibiotic therapy, lines out, permacath next week. 3. Hemodynamics Remain nicely stable 4. Anemia Hemoglobin 8.6. Continue to monitor closely, would consider transfusion if less than 7. Will consider EPO as well if he becomes recalcitrant Maco Chang MD Nephrology [phone] Patient seen and examined via telemedicine, with the assistance of the bedside RN > 25 min spent in evaluation and mgmt of patient Attestations Medical Necessity Statement*: eval for ESRD mgmt Coding Level of Care Code Acute Senior Business Manager for Chg [employer] Diagnoses ESRD (end stage renal disease) on dialysis N18.6; Z99.2
--- NOTE | 2021-06-14 09:24 | PC.NURSE ---
Pt receiving dialysis at this time. AM PO medications will be administered at 1000 as dialysis due to be done at approx 1100.
[2021-06-14] MEDS: carvedilol 25 mg Tablet PO ×2 (10:54→20:33)
[2021-06-14] MEDS: NIFEdipine ER (24 hr) 30 mg Tablet 90 MG PO (10:54)
[2021-06-14] MEDS: ferrous gluconate 324 mg Tablet PO ×2 (10:54→17:33)
[2021-06-14] MEDS: pantoprazole DR 40 mg Tablet PO (10:54)
[2021-06-14] MEDS: sevelamer 800 mg Tablet 1600 MG PO ×3 (10:54→20:32)
[2021-06-14] MEDS: hyDRALAzine 50 mg Tablet 100 MG PO ×3 (10:54→20:33)
[2021-06-14] MEDS: minoxidil 10 mg Tablet 5 MG PO (10:55)
[2021-06-14] MEDS: mupirocin oint 22 gm 1 APPLIC NOSTRIL-B ×2 (10:55→17:33)
[2021-06-14] MEDS: FUROsemide 10 mg/mL SDV 10mL 60 MG IVP ×2 (10:55→22:52)
[2021-06-14] MEDS: heparin 5,000 unit/mL INJ 1 mL 5000 UNIT SUBCUT ×2 (10:55→20:32)
--- NOTE | 2021-06-14 11:19 | PC.NURSE ---
MAR delay related to dialysis in progress and pt nauseated slight before time previously stated ( 1000) that meds would be given . Awaiting clarification on Betasept orders.
--- NOTE | 2021-06-14 11:45 | PC.NURSE ---
Pt in urgent of need of BSC, yelling at nurse after he just said he did not need to go, flopped around in bed and bed covers, IV pulled out. Pt to BSC, copious loose Bm noted. Discussed with pt the HD catheter in his groin, cannot be treated that way or he could bleed to . Pt agreed and verbalized that he needed to be more careful and pay attention in the future. based on his past actions, reinforcement will be needed. removal of vyas catheter was completed after pt asked nurse to wait a minute and huffed and puffed while squeezing nurse's arm. Pt clearly anxious. Pt finally agreeed to release this nurse's arm . Catheter removed without further incident . Pt stated oh that wasn't as bad as I though it would be.
--- NOTE | 2021-06-14 13:12 | P.PN_ITS ---
Subjective Subjective: Interval history: No acute events overnight. Has remained hemodynamically stable. Patient received a temporary dialysis catheter in his groin today by surgery. Plan for dialysis today. Blood cultures from 06/11 remain negative. Blood pressure is better. Discussed in detail with patient about not to try to stand up given HD catheter line in his groin. For now he is verbalized understanding Medications: Reviewed: Yes Vitals/I&O/Wt Last Vital Signs Temp 98.8 F 06/14/21 07:57 Pulse 99 06/14/21 09:30 Resp 18 06/14/21 09:30 BP 164/85 06/14/21 09:30 Pulse Ox 92 06/14/21 09:30 06/13/21 06/14/21 06/14/21 22:59 06:59 14:59 Intake Total 788 / 1778.15 800 / 800 Output Total 2650 / 2650 175 / 2825 2800 / 2800 Balance -1862 / -871.85 -175 / -1046.85 -2000 / -2000 Weight last 48 hrs Weight 102.421 kg Weight 104.19 kg Physical Exam Const: COMMON NORMALS: no acute distress, patient oriented x3 and alert GENERAL APPEARANCE: cooperative ORIENTATION/CONSCIOUSNESS: Yes awake OTHER: Very [place]. HENMT: COMMON NORMALS: oropharynx normal Neck/C-Spine: COMMON NORMALS: no JVD Chest: OTHER: R chest tunneled catheter, currently do not appreciate erythema or drainage from the access site or significant swelling Resp: COMMON NORMALS: normal respiratory effort and clear to auscultation bilaterally AUSCULTATION: clear to auscultation bilaterally Cardio: COMMON NORMALS: no JVD, regular rhythm, S1 normal heart sound present, S2 normal heart sound present and No murmurs present (Cardio) RHYTHM: regular rhythm HEART SOUNDS: S1 normal heart sound present and S2 normal heart sound present GI: COMMON NORMALS: Normal to inspection, nondistended, normoactive bowel soun ds present and Soft to palpation INSPECTION: Yes abdominal distension PALPATION: Yes Soft to palpation and Yes Tenderness to palpation present (GI) (Mild-moderate nonlocalized, reports chronic) Extremity: COMMON NORMALS: no joint enlargement and no pedal edema OTHER: Left forearm fistula, without any thrill, R forearm mildly swollen compared to L. 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 No loss of sensation or paresthesia. Warm and perfused. Neuro: COMMON NORMALS: patient oriented x3 and moves all extremities SENSORIUM/ORIENTATION: Yes alert Skin: COMMON NORMALS: no rashes or lesions noted GENERAL SKIN EXAM: no rashes or lesions noted OTHER: Diffuse excoriated lesions on face, LE, he states started after strawberry allergy Urinary Catheter Management: Blue: Cath Placed During This Visit: yes Reason for Continuing Indwelling Catheter: Acute Urinary Retention or Obstruction Urinary Catheter Date of Insertion: 06/10/21 Urinary Catheter Time of Insertion: 16:10 Data : 06/14/21 04:10 06/14/21 04:10 Micro: Microbiology 06/12/21 02:05 Urine Culture - Final Urine,Clean Catch 06/14/21 04:15 Blood Culture - Preliminary Blood SPECIMEN COLLECTED 06/14/21 04:10 Blood Culture - Preliminary Blood SPECIMEN COLLECTED 06/11/21 19:10 Anaerobic Culture - Preliminary Arm - #1 06/11/21 19:10 Gram Stain - Final Arm - #2 Abscess Culture - Preliminary Methicillin Resis Staph Aureus A&P Assessment and plan (1) 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 Status: Acute (4) Hemodialysis catheter infection: Status: Acute Qualifiers: Encounter type: subsequent encounter Qualified Code(s): T82.7XXD - Infection and inflammatory reaction due to other cardiac and vascular devices, implants and grafts, subsequent encounter (5) Abscess of right forearm: Status: Acute (6) MRSA bacteremia: Status: Acute (7) Moderate mitral regurgitation: New finding. Most likely secondary to infective endocarditis. Given extensive mitral regurgitation patient will most likely need a mitral clipping versus mitral valve replacement going forward once infective endocard itis clears up or sooner if he continues to remain persistently bacteremic. Status: Acute (8) Hypoxia: Status: Acute (9) Diastolic heart failure: Status: Acute (10) Dialysis patient, noncompliant: Status: Acute (11) HTN (hypertension): Status: Acute (12) Cardiomegaly: Status: Acute (13) LVH (left ventricular hypertrophy): With history of hypertension. Not adherent with hemodialysis. I am not not certain that he is adherent with his medications at home. Continue HTN medicines. Aspirin, beta-lucas. Stress test when able. Unclear benefit of statin in setting of ESRD on dialysis. Status: Acute (14) Severe tricuspid regurgitation: Status: Acute (15) Ascites: Most likely from diastolic heart failure. Seems to be improving with regular dialysis. Check hepatitis panel, HIV. Status: Acute (16) Acute hyperkalemia: Resolved. On hemodialysis. Check daily BMP. 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 BALTAZAR results consistent with echogenic density seen on posterior mitral leaflet, posterior tricuspid valve measuring 1 to 0.5 cm in size suggestive of endocarditis. Post I&D of forearm abscess on 06/11. HD catheter removed 06/10 Blood cultures from 06/09 also positive. Repeat blood cultures sent 06/11 so far negative Trying to give line holiday. Temporal dialysis catheter placed on 06/13 For now continue with vancomycin. Repeat dose of vancomycin postdialysis today. Continue to check vancomycin random level daily for now. Target levels 15-20. Dose vancomycin accordingly. Decolonization as per ID. CKD: Appreciate nephrology recommendations. Plan for line holiday. Removal of HD catheter on 06/10. Case discussed again with nephrology. 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 Possible plan for HD catheter on Wednesday/Wednesday Monitor BMP daily. Hyperkalemia seems to be resolved. Hypoxia: COVID-19 PCR negative.? Most likely secondary to congestive diastolic heart failure. Resolved. Perfusion study low probability for PE. Hemodialysis with negative fluid balance. Continue with Lasix to 60 mg IV every 12 hourly. Monitor strict input output charting. Hypertension: Goal blood pressure less than 140/90 mmHg. Blood pressure better controlled. Continue with home dose of hydralazine, nifedipine. Continue with Coreg 25 mg twice daily and clonidine 0.1 mg patch. Full code. Dialysis regular diet. Protonix for PUD prophylaxis. Heparin for DVT prophylaxis. Guarded prognosis. Discharge planning: Will most likely need IV antibiotics for 6 weeks once blood cultures clear up. Most likely will need placement for IV antibiotics given history of drug abuse will be difficult to send patient out with a PICC line. Will consult case management. Patient will also need new peritoneal dialysis catheter teaching before discharge and also set up as an outpatient. Plan for today: Continue 1 more session of dialysis. Vancomycin postdialysis. Continue with antihypertensives. Continue to follow blood cultures. 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
[2021-06-14] MEDS: vancomycin 500 MG in sodium chloride 0.9% (plus) 100 ML 200 MG IV (14:29)
--- NOTE | 2021-06-14 14:40 | PC.NURSE ---
Dr Kauffman notified of bradycardic/pause/asystole episodes, x 3. each were very brief, less than 2 minutes. . Pt had pulse when checked. No nausea, dizziness or chest pains just periodic snoring respirations and pauses noted.
--- NOTE | 2021-06-14 16:31 | PM.PN ---
Subjective Subjective: Interval history: Denies any complaint. Heart rate is settling down as well Medications: Reviewed: Yes Medication Review Details: Current Medications Acetaminophen (Acetaminophen 325 Mg Tablet) 650 mg PO Q6H PRN PRN Reason: Mild/Mod Pain Or Temp >/= 101 Last Admin: 06/11/21 10:10 Dose: 650 mg Documented by: Carvedilol (Carvedilol 25 Mg Tablet) 25 mg PO BID@0900,2100 [facility] Last Admin: 06/12/21 09:32 Dose: 25 mg Documented by: Clonidine HCl (Clonidine 0.1 Mg/24 Hr Patch) 1 patch TRANSDERMA Q7D [facility] Last Admin: 06/10/21 11:44 Dose: 1 patch Documented by: Ferrous Gluconate (Ferrous Gluconate 324 Mg Tablet) 324 mg PO BIDWM [facility] Last Admin: 06/12/21 17:43 Dose: 324 mg Documented by: Furosemide (Furosemide 10 Mg/Ml Sdv 10ml) 60 mg IVP Q12H [facility] Last Admin: 06/12/21 09:34 Dose: 60 mg Documented by: Heparin Sodium (Porcine) (Heparin 5,000 Unit/Ml Inj 1 Ml) 5,000 unit SUBCUT Q12H [facility] Last Admin: 06/12/21 09:28 Dose: 5,000 unit Documented by: Heparin Sodium (Porcine) (Heparin, Porcine 1,000 Unit/Ml Inj 10 Ml) 10,000 unit HE ONCE PRN PRN Reason: Dialysis Hydralazine HCl (Hydralazine 50 Mg Tablet) 100 mg PO TID [facility] Last Admin: 06/12/21 15:58 Dose: 100 mg Documented by: Sodium Chloride (Sodium Chloride 0.9%) 1,000 mls @ 0 mls/hr IV .Q0M PRN PRN Reason: hypotension or symptomatic Vancomycin HCl 1,000 mg/ (Sodium Chloride) 250 mls @ 250 mls/hr IV Q48H [facility] Last Infusion: 06/10/21 06:20 Dose: Infused Documented by: Epoetin Avila 3,000 unit/ N/A 0.15 mls @ 0 mls/hr IVP QMWF [facility] Cefazolin Sodium 2,000 mg/ (Sodium Chloride) 60 mls @ 100 mls/hr IV ONCE ONE Stop: 06/13/21 07:35 Minoxidil (Minoxidil 10 Mg Tablet) 5 mg PO DAILY [facility] Last Admin: 06/12/21 09:29 Dose: 5 mg Documented by: Nifedipine (Nifedipine Er (24 Hr) 30 Mg Tablet) 90 mg PO DAILY [facility] Last Admin: 06/12/21 09:30 Dose: 90 mg Documented by: Ondansetron HCl (Ondansetron 2 Mg/Ml Sdv 2 Ml) 4 mg IVP Q8H PRN PRN Reason: vomiting, or N/V if npo Last Admin: 06/08/21 20:32 Dose: 4 mg Documented by: Oxycodone/Acetaminophen (Oxycodone-Apap 5-325 Mg Tablet) 1 tab PO Q6H PRN PRN Reason: MODERATE PAIN Last Admin: 06/12/21 16:00 Dose: 1 tab Documented by: Pantoprazole Sodium (Pantoprazole Dr 40 Mg Tablet) 40 mg PO DAILY [facility] Last Admin: 06/12/21 09:29 Dose: 40 mg Documented by: Sevelamer Carbonate (Sevelamer 800 Mg Tablet) 1,600 mg PO TID [facility] Last Admin: 06/12/21 15:58 Dose: 1,600 mg Documented by: Vitals/I&O/Wt Last Vital Signs Temp 98.8 F 06/14/21 07:57 Pulse 99 06/14/21 09:30 Resp 18 06/14/21 09:30 BP 164/85 06/14/21 09:30 Pulse Ox 92 06/14/21 09:30 06/14/21 06/14/21 06/14/21 06:59 14:59 22:59 Intake Total 800 / 800 Output Total 175 / 2825 2800 / 2800 Balance -175 / -1046.85 -2000 / -2000 Weight last 48 hrs Weight 225 lb 12.8 oz Weight 229 lb 11.2 oz Physical Exam Chest: OTHER: GENERAL: Patient is alert, awake and oriented x3. NECK: No jugular vein distension. HEENT: No cyanosis. No icterus. No pallor. HEART: Regular S1 and S2. No murmur, rub or gallop. LUNGS: Clear to auscultate bilaterally. ABDOMEN: Soft, nontender and nondistended. Positive bowel sounds. No guarding, rebound or tenderness. CENTRAL NERVOUS SYSTEM: Grossly nonfocal. EXTREMITIES: Lower extremities without edema bilaterally. Urinary Catheter Management: Blue: Cath Placed During This Visit: yes Reason for Continuing Indwelling Catheter: Acute Urinary Retention or Obstruction Urinary Catheter Date of Insertion: 06/10/21 Urinary Catheter Time of Insertion: 16:10 Data : 06/14/21 04:10 06/14/21 04:10 Micro: Microbiology 06/11/21 19:10 Anaerobic Culture - Preliminary Arm - #1 06/11/21 19:10 Gram Stain - Final Arm - #2 Abscess Culture - Preliminary Methicillin Resis Staph Aureus 06/12/21 02:05 Urine Culture - Final Urine,Clean Catch 06/14/21 04:15 Blood Culture - Preliminary Blood SPECIMEN COLLECTED 06/14/21 04:10 Blood Culture - Preliminary Blood SPECIMEN COLLECTED A&P Assessment and plan (1) Endocarditis due to Staphylococcus: No change in medicine continue antibiotics Status: Acute (2) Staphylococcus aureus bacteremia: Status: Deleted (3) Severe mitral regurgitation: Patient may require surgical intervention months clear infection, patient is appear to be stable Status: Acute (4) Tricuspid regurgitation: Continue IV antibiotic Status: Acute (5) Hemodialysis catheter infection: Patient is planning to have the dialysis catheter placement today Status: Acute Qualifiers: Encounter type: subsequent encounter Qualified Code(s): T82.7XXD - Infection and inflammatory reaction due to other cardiac and vascular devices, implants and grafts, subsequent encounter (6) ESRD (end stage renal disease) on dialysis: Management as per the nephrology service Status: Acute Plan Other problems are Hypertension Multiple substance abuse Continue on the current treatment pressures Attestations Medical Necessity Statement*: Patient require continuation hospitalization for above defined care Coding Level of Care Code 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
[2021-06-14] MEDS: chlorhexidine gluconate 4% Btl 118 mL 1 APPLIC TOPICAL (16:58)
--- NOTE | 2021-06-14 17:17 | PC.NURSE ---
Report faxed to [facility]. Further report called to [facility] and given FLOYD Jain.
--- NOTE | 2021-06-14 17:25 | PC.NURSE ---
Shift Note Pt rested in bed most of the shift in ICu .He received dialysis this am, tolerated it well. Frequent safety and comfort rounds continue. Orders and/or nursing care completed as indicated. Patient monitored for response to intervention and treatment(s). Education provided includes dialysis cath care, Vancomycin, and betasept. Patient verbalized understanding and agreement with plan of careand medications. Will continue to monitor.
--- NOTE | 2021-06-14 17:30 | PC.NURSE ---
Pt transferred to [facility] room 269 via W/C. with all of his belongings Pt packed all of his belongings up after bathing with minimal assist with Betasept.
--- NOTE | 2021-06-14 20:37 | PC.NURSE ---
Shift report received from Rowena CORDERO. Patient in bed/watching TV. HD access R groin. Dressing R FA C/D/I. Rates pain at a 910. No other needs voiced at this time.
[2021-06-14] MEDS: acetaminophen 325 mg Tablet 650 MG PO (20:54)
[2021-06-15] VITALS (13 sets, daily range): BP systolic 139–176; BP diastolic 81–100; PULSE 72–102; RESP 16–20; TEMP 36.3–37.1; O2SAT 96–99
--- NOTE | 2021-06-15 06:26 | PC.NURSE ---
Patient non compliant with using urinal to accurately measure urine output. Tech stated patient had gotten up to bathroom several times this shift. Education was provided earlier in shift and reinforced.
[2021-06-15 07:03] LABS: Basophils # 0.1 10^3/uL (0.0-0.1); Eosinophils # 0.5 10^3/uL (0.0-0.8); Eosinophils % 4.4 %; Hematocrit 26.6 % (42.0-52.0); Lymphocytes # 1.2 10^3/uL (0.8-4.8); Lymphocytes % 11.5 %; Mean Corpuscular HGB Conc 30.1 g/dL (30.0-36.0); Mean Corpuscular Hemoglobin 26.6 pg (28.0-34.0); Mean Corpuscular Volume 88.4 fl (80-94); Mean Platelet Volume 10.3 fL (7.4-10.4); Monocytes # 1.2 10^3/uL (0.2-0.9); Monocytes % 11.5 %; Neutrophils # 7.05 10^3/uL (1.8-7.7); Neutrophils % 69.2 %; Nucleated Red Blood Cells % 0 %; Platelet Count 353 10^3/cmm (130-400); Red Blood Count 3.01 10^6/uL (4.1-5.3); Red Cell Distribution Width 19.1 % (12.1-15.1); White Blood Count 10.2 10^3/uL (4.0-10.0)
[2021-06-15 07:07] LABS: Alanine Aminotransferase < 5 U/L (0-41); Albumin Level 3.5 g/dL (3.5-5.2); Alkaline Phosphatase 128 IU/L (40-130); Anion Gap 18.3 (5-19); Aspartate Amino Transferase 17 U/L (0-40); Blood Urea Nitrogen 40 mg/dL (6-20); Carbon Dioxide 21 mmol/L (22-29); Chloride 104 mmol/L (98-107); Glomerular Filtration Rate 8.9 mL/min (90-130); Glucose 86 mg/dL (65-115); Osmolality Calculated 295 mOsm/kg (285-295); Potassium 5.3 mmol/L (3.5-5.1); Sodium 138 mmol/L (136-145); Total Bilirubin 0.3 mg/dL (0.15-1.2); Total Protein 6.5 g/dL (6.6-8.7)
--- NOTE | 2021-06-15 08:37 | P.PN_ITS ---
Subjective Subjective: Interval history: No new issues with him today. No fevers or chills. Feels good, keen to go home. Blue catheter removed yesterday, passing urine without any obstructive sym ptoms. Minimal extremity edema. Medications: Reviewed: Yes Medication Review Details: Current Medications Acetaminophen (Acetaminophen 325 Mg Tablet) 650 mg PO Q6H PRN PRN Reason: Mild/Mod Pain Or Temp >/= 101 Last Admin: 06/11/21 10:10 Dose: 650 mg Documented by: Carvedilol (Carvedilol 25 Mg Tablet) 25 mg PO BID@0900,2100 [facility] Last Admin: 06/12/21 09:32 Dose: 25 mg Documented by: Clonidine HCl (Clonidine 0.1 Mg/24 Hr Patch) 1 patch TRANSDERMA Q7D [facility] Last Admin: 06/10/21 11:44 Dose: 1 patch Documented by: Ferrous Gluconate (Ferrous Gluconate 324 Mg Tablet) 324 mg PO BIDWM [facility] Last Admin: 06/12/21 17:43 Dose: 324 mg Documented by: Furosemide (Furosemide 10 Mg/Ml Sdv 10ml) 60 mg IVP Q12H [facility] Last Admin: 06/12/21 09:34 Dose: 60 mg Documented by: Heparin Sodium (Porcine) (Heparin 5,000 Unit/Ml Inj 1 Ml) 5,000 unit SUBCUT Q12H [facility] Last Admin: 06/12/21 09:28 Dose: 5,000 unit Documented by: Heparin Sodium (Porcine) (Heparin, Porcine 1,000 Unit/Ml Inj 10 Ml) 10,000 unit HE ONCE PRN PRN Reason: Dialysis Hydralazine HCl (Hydralazine 50 Mg Tablet) 100 mg PO TID [facility] Last Admin: 06/12/21 15:58 Dose: 100 mg Documented by: Sodium Chloride (Sodium Chloride 0.9%) 1,000 mls @ 0 mls/hr IV .Q0M PRN PRN Reason: hypotension or symptomatic Vancomycin HCl 1,000 mg/ (Sodium Chloride) 250 mls @ 250 mls/hr IV Q48H [facility] Last Infusion: 06/10/21 06:20 Dose: Infused Documented by: Epoetin Avila 3,000 unit/ N/A 0.15 mls @ 0 mls/hr IVP QMWF [facility] Cefazolin Sodium 2,000 mg/ (Sodium Chloride) 60 mls @ 100 mls/hr IV ONCE ONE Stop: 06/13/21 07:35 Minoxidil (Minoxidil 10 Mg Tablet) 5 mg PO DAILY [facility] Last Admin: 06/12/21 09:29 Dose: 5 mg Documented by: Nifedipine (Nifedipine Er (24 Hr) 30 Mg Tablet) 90 mg PO DAILY [facility] Last Admin: 06/12/21 09:30 Dose: 90 mg Documented by: Ondansetron HCl (Ondansetron 2 Mg/Ml Sdv 2 Ml) 4 mg IVP Q8H PRN PRN Reason: vomiting, or N/V if npo Last Admin: 06/08/21 20:32 Dose: 4 mg Documented by: Oxycodone/Acetaminophen (Oxycodone-Apap 5-325 Mg Tablet) 1 tab PO Q6H PRN PRN Reason: MODERATE PAIN Last Admin: 06/12/21 16:00 Dose: 1 tab Documented by: Pantoprazole Sodium (Pantoprazole Dr 40 Mg Tablet) 40 mg PO DAILY [facility] Last Admin: 06/12/21 09:29 Dose: 40 mg Documented by: Sevelamer Carbonate (Sevelamer 800 Mg Tablet) 1,600 mg PO TID [facility] Last Admin: 06/12/21 15:58 Dose: 1,600 mg Documented by: Vitals/I&O/Wt Last Vital Signs Temp 98.0 F 06/15/21 08:10 Pulse 99 06/15/21 08:10 Resp 16 06/15/21 08:10 BP 176/100 06/15/21 08:10 Pulse Ox 96 06/15/21 08:10 06/14/21 06/15/21 06/15/21 22:59 06:59 14:59 Intake Total 580 / 1880 300 / 300 Output Total 50 / 5925 Balance 530 / -4045 300 / 300 Weight last 48 hrs Weight 93.259 kg Weight 102.421 kg Physical Exam Narrative: EXAM NARRATIVE: Constitutional: Awake, comfortable HEENT: Wet mucosa, no jvp, non icteric Lungs: Bilaterally clear without discernible wheeze, rales in all lung zones CVS: S1 S2, no murmurs Abdo: Soft, BS ok Ext 4: Minimal edema, peripheral perfusion with no cyanosis Neurological: Grossly non-focal Urinary Catheter Management: Blue: Cath Placed During This Visit: yes, but has since been removed by the nurse Reason for Continuing Indwelling Catheter: Acute Urinary Retention or Obstructi on Urinary Catheter Date of Insertion: 06/10/21 Urinary Catheter Time of Insertion: 16:10 Date Urinary Catheter Removed: 06/14/21 Time Urinary Catheter Discontinued: 11:50 Data : 06/15/21 05:54 06/15/21 05:54 Micro: Microbiology 06/14/21 04:15 Blood Culture - Preliminary Blood NEGATIVE TO DATE 06/14/21 04:10 Blood Culture - Preliminary Blood NEGATIVE TO DATE 06/11/21 19:10 Anaerobic Culture - Preliminary Arm - #1 06/11/21 19:10 Gram Stain - Final Arm - #2 Abscess Culture - Preliminary Methicillin Resis Staph Aureus 06/12/21 02:05 Urine Culture - Final Urine,Clean Catch A&P Assessment and plan (1) ESRD (end stage renal disease) on dialysis: Status: Acute Plan 1. ESRD Dialysis is planned for tomorrow; 2K, UF 3L Permacath on Wednesday/Wednesday if cultures remain negative dose meds for eGFR < 15 2. Sepsis MRSA bacteremia, infective endocarditis, with BALTAZAR consistent with echogenic density seen on the posterior mitral leaflet measuring 1 cm. On combination antibiotic therapy, lines out, permacath next week. 3. Hemodynamics Remain nicely stable 4. Anemia Hemoglobin 8. Continue to monitor closely, would consider transfusion if less than 7. 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
[2021-06-15] MEDS: sevelamer 800 mg Tablet 1600 MG PO ×3 (09:15→20:58)
[2021-06-15] MEDS: NIFEdipine ER (24 hr) 30 mg Tablet 90 MG PO (09:15)
[2021-06-15] MEDS: ferrous gluconate 324 mg Tablet PO ×2 (09:16→16:28)
[2021-06-15] MEDS: pantoprazole DR 40 mg Tablet PO (09:16)
[2021-06-15] MEDS: heparin 5,000 unit/mL INJ 1 mL 5000 UNIT SUBCUT ×2 (09:16→20:58)
[2021-06-15] MEDS: carvedilol 25 mg Tablet PO ×2 (09:16→21:01)
[2021-06-15] MEDS: hyDRALAzine 50 mg Tablet 100 MG PO ×3 (09:16→20:59)
[2021-06-15] MEDS: FUROsemide 10 mg/mL SDV 10mL 60 MG IVP ×2 (09:17→22:31)
[2021-06-15] MEDS: minoxidil 10 mg Tablet 5 MG PO (09:17)
[2021-06-15] MEDS: chlorhexidine gluconate 4% Btl 118 mL 1 APPLIC TOPICAL (09:18)
[2021-06-15] MEDS: mupirocin oint 22 gm 1 APPLIC NOSTRIL-B (09:18)
[2021-06-15 10:43] LABS: Vancomycin Random 24.9 ug/mL (20.0-40.0)
[2021-06-15] MEDS: cloNIDine 0.1 mg Tablet 0.2 MG PO ×3 (11:55→20:59)
--- NOTE | 2021-06-15 13:15 | PM.PN ---
Subjective Subjective: Interval history: No acute events overnight. Patient has remained hemodynamically stable and afebrile. Denies any nausea, vomiting, headache. Sleeping comfortably in bed. Wakes up to physical stimulus. Able to have complete conversation. Blood pressure is mildly elevated. Blood cultures so far has remained negative. Afebrile last 24 hours. Medications: Reviewed: Yes Vitals/I&O/Wt Last Vital Signs Temp 97.5 F L 06/15/21 11:51 Pulse 97 06/15/21 11:51 Resp 18 06/15/21 11:51 BP 172/93 06/15/21 11:55 Pulse Ox 96 06/15/21 11:51 06/14/21 06/15/21 06/15/21 22:59 06:59 14:59 Intake Total 580 / 1880 540 / 540 Output Total 50 / 5925 Balance 530 / -4045 540 / 540 Weight last 48 hrs Weight 93.259 kg Weight 102.421 kg Physical Exam Const: COMMON NORMALS: no acute distress, patient oriented x3 and alert GENERAL APPEARANCE: cooperative ORIENTATION/CONSCIOUSNESS: Yes awake OTHER: Very [place]. HENMT: COMMON NORMALS: oropharynx normal Neck/C-Spine: COMMON NORMALS: no JVD Chest: OTHER: R chest tunneled catheter, currently do not appreciate erythema or drainage from the access site or significant swelling Resp: COMMON NORMALS: normal respiratory effort and clear to auscultation bilaterally AUSCULTATION: clear to auscultation bilaterally Cardio: COMMON NORMALS: no JVD, regular rhythm, S1 normal heart sound present, S2 normal heart sound present and No murmurs present (Cardio) RHYTHM: regular rhythm HEART SOUNDS: S1 normal heart sound present, S2 normal heart sound present and Murmur heart sound present systolic Location: apex Radiation: to the left axilla Intensity: II/ Timing: holo GI: COMMON NORMALS: Normal to inspection, nondistended, normoactive bowel sounds present and Soft to palpation INSPECTION: Yes abdominal distension PALPATION: Yes Soft to palpation and Yes Tenderness to palpation present (GI) (Mild-moderate nonlocalized, reports chronic) Extremity: COMMON NORMALS: no joint enlargement and no pedal edema OTHER: Left forearm fistula, without any thrill, R forearm mildly swollen compared to L. Moving fingers, but difficulty with pot sander apart from adducting thumb. No loss of sensation or paresthesia. Warm and perfused. Neuro: COMMON NORMALS: patient oriented x3 and moves all extremities SENSORIUM/ORIENTATION: Yes alert Skin: COMMON NORMALS: no rashes or lesions noted GENERAL SKIN EXAM: no rashes or lesions noted OTHER: Diffuse excoriated lesions on face, LE, he states started after strawberry allergy Urinary Catheter Management: Blue: Cath Placed During This Visit: yes, but has since been removed by the nurse Reason for Continuing Indwelling Catheter: Acute Urinary Retention or Obstruction Urinary Catheter Date of Insertion: 06/10/21 Urinary Catheter Time of Insertion: 16:10 Date Urinary Catheter Removed: 06/14/21 Time Urinary Catheter Discontinued: 11:50 Data : 06/15/21 05:54 06/15/21 05:54 Micro: Microbiology 06/11/21 19:10 Gram Stain - Final Arm - #2 Abscess Culture - Final Methicillin Resis Staph Aureus 06/11/21 19:10 Anaerobic Culture - Preliminary Arm - #1 06/14/21 04:15 Blood Culture - Preliminary Blood NEGATIVE TO DATE 06/14/21 04:10 Blood Culture - Preliminary Blood NEGATIVE TO DATE 06/12/21 02:05 Urine Culture - Final Urine,Clean Catch A&P Assessment and plan (1) 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 Status: Acute (4) Hemodialysis catheter infection: Status: Acute Qualifiers: Encounter type: subsequent encounter Qualified Code(s): T82.7XXD - Infection and inflammatory reaction due to other cardiac and vascular devices, implants and grafts, subsequent encounter (5) Abscess of right forearm: Status: Acute (6) MRSA bacteremia: Status: Acute (7) Moderate mitral regurgitation: New finding. Most likely secondary to infective endocarditis. Given extensive mitral regurgitation patient will most likely need a mitral clipping versus mitral valve replacement going forward once infective endocarditis clears up or sooner if he continues to remain persistently bacteremic. Status: Acute (8) Hypoxia: Status: Acute (9) Diastolic heart failure: Status: Acute (10) Dialysis patient, noncompliant: Status: Acute (11) HTN (hypertension): Status: Acute (12) Cardiomegaly: Status: Acute (13) LVH (left ventricular hypertrophy): With history of hypertension. Not adherent with hemodialysis. I am not not certain that he is adherent with his medications at home. Continue HTN medicines. Aspirin, beta-lucas. Stress test when able. Unclear benefit of statin in setting of ESRD on dialysis. Status: Acute (14) Severe tricuspid regurgitation: Status: Acute (15) Ascites: Most likely from diastolic heart failure. Seems to be improving with regular dialysis. Check hepatitis panel, HIV. Status: Acute (16) Acute hyperkalemia: Resolved. On hemodialysis. Check daily BMP. 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 BALTAZAR results consistent with echogenic density seen on posterior mitral leaflet, posterior tricuspid valve measuring 1 to 0.5 cm in size suggestive of endocarditis. Post I&D of forearm abscess on 06/11. HD catheter removed 06/10 Blood cultures from 06/09 also positive. Repeat blood cultures sent 06/11 so far negative Trying to give line holiday. Temporal dialysis catheter placed on 06/13 For now continue with vancomycin. Repeat dose of vancomycin postdialysis today. Continue to check vancomycin random level daily for now. Target levels 15-20. Dose vancomycin accordingly. Decolonization as per ID. CKD: Appreciate nephrology recommendations. Plan for line holiday. Removal of HD catheter on 06/10. Case discussed again with nephrology. Plan now is for a possible tunneled HD catheter to be placed once blood cultures are cleared up as no contact made through with patient's outpatient dialysis or industrial engineering intern and it might not be safe for patient to go out on peritoneal dialysis currently. Possible plan for HD catheter on Wednesday/Wednesday Monitor BMP daily. Hyperkalemia seems to be resolved. Hypoxia: COVID-19 PCR negative.? Most likely secondary to congestive diastolic heart failure. Resolved. Perfusion study low probability for PE. Hemodialysis with negative fluid balance. Continue with Lasix to 60 mg IV every 12 hourly. Monitor strict input output charting. Hypertension: Goal blood pressure less than 140/90 mmHg. Blood pressure better controlled. Continue with home dose of hydralazine, nifedipine. Continue with Coreg 25 mg twice daily and clonidine 0.1 mg patch. Full code. Dialysis regular diet. Protonix for PUD prophylaxis. Heparin for DVT prophylaxis. Discharge planning: Will need 6 weeks of antibiotics. Plan for tunneled catheter placement once blood cultures remain negative. Plan for possible vancomycin post dialysis for next 6 weeks. Can plan to discharge home with tunneled catheter and IV antibiotics. Plan for today: Blood cultures so far negative from . Plan for dialysis tomorrow. If blood cultures remain negative for next 48 hours can plan for tunneled catheter. Follow-up Vanco random level. Will dose vancomycin as per random level daily. Increase clonidine to 0.2 mg 3 times daily. Remove clonidine 0.1 mg patch. Attestations Medical Necessity Statement*: Requires further hospitalization for management of MRSA endocarditis in setting of CKD on maintenance hemodialysis Time Spent in Patient Care: Greater than 35 minutes Coding Level of Care Code Acute Stock Parts Fabricator for [facility] Fwd Diagnoses Endocarditis due to Staphylococcus I33.0; B95.8 Moderate to severe mitral regurgitation I34.0 Right forearm pain M79.631 Hemodialysis catheter infection T82.7XXD Encounter type: subsequent encounter Abscess of right forearm L02.413 MRSA bacteremia R78.81; B95.62 Moderate mitral regurgitation I34.0 Hypoxia R09.02 Diastolic heart failure I50.30 Dialysis patient, noncompliant Z91.15 HTN (hypertension) I10 Cardiomegaly I51.7 LVH (left ventricular hypertrophy) I51.7 Severe tricuspid regurgitation I07.1 Ascites R18.8 Acute hyperkalemia E87.5 Uremia N19
[2021-06-15] MEDS: sodium chloride 0.9% (100 ml) 100 ML 125 ML (17:41)
--- NOTE | 2021-06-15 18:18 | P.PN_ITS ---
Subjective Subjective: Interval history: Feeling much better being active today moving around in the room. Medications: Reviewed: Yes Medication Review Details: Current Medications Acetaminophen (Acetaminophen 325 Mg Tablet) 650 mg PO Q6H PRN PRN Reason: Mild/Mod Pain Or Temp >/= 101 Last Admin: 06/11/21 10:10 Dose: 650 mg Documented by: Carvedilol (Carvedilol 25 Mg Tablet) 25 mg PO BID@0900,2100 [facility] Last Admin: 06/12/21 09:32 Dose: 25 mg Documented by: Clonidine HCl (Clonidine 0.1 Mg/24 Hr Patch) 1 patch TRANSDERMA Q7D [facility] Last Admin: 06/10/21 11:44 Dose: 1 patch Documented by: Ferrous Gluconate (Ferrous Gluconate 324 Mg Tablet) 324 mg PO BIDWM [facility] Last Admin: 06/12/21 17:43 Dose: 324 mg Documented by: Furosemide (Furosemide 10 Mg/Ml Sdv 10ml) 60 mg IVP Q12H [facility] Last Admin: 06/12/21 09:34 Dose: 60 mg Documented by: Heparin Sodium (Porcine) (Heparin 5,000 Unit/Ml Inj 1 Ml) 5,000 unit SUBCUT Q12H [facility] Last Admin: 06/12/21 09:28 Dose: 5,000 unit Documented by: Heparin Sodium (Porcine) (Heparin, Porcine 1,000 Unit/Ml Inj 10 Ml) 10,000 unit HE ONCE PRN PRN Reason: Dialysis Hydralazine HCl (Hydralazine 50 Mg Tablet) 100 mg PO TID [facility] Last Admin: 06/12/21 15:58 Dose: 100 mg Documented by: Sodium Chloride (Sodium Chloride 0.9%) 1,000 mls @ 0 mls/hr IV .Q0M PRN PRN Reason: hypotension or symptomatic Vancomycin HCl 1,000 mg/ (Sodium Chloride) 250 mls @ 250 mls/hr IV Q48H [facility] Last Infusion: 06/10/21 06:20 Dose: Infused Documented by: Epoetin Avila 3,000 unit/ N/A 0.15 mls @ 0 mls/hr IVP QMWF [facility] Cefazolin Sodium 2,000 mg/ (Sodium Chloride) 60 mls @ 100 mls/hr IV ONCE ONE Stop: 06/13/21 07:35 Minoxidil (Minoxidil 10 Mg Tablet) 5 mg PO DAILY [facility] Last Admin: 06/12/21 09:29 Dose: 5 mg Documented by: Nifedipine (Nifedipine Er (24 Hr) 30 Mg Tablet) 90 mg PO DAILY [facility] Last Admin: 06/12/21 09:30 Dose: 90 mg Documented by: Ondansetron HCl (Ondansetron 2 Mg/Ml Sdv 2 Ml) 4 mg IVP Q8H PRN PRN Reason: vomiting, or N/V if npo Last Admin: 06/08/21 20:32 Dose: 4 mg Documented by: Oxycodone/Acetaminophen (Oxycodone-Apap 5-325 Mg Tablet) 1 tab PO Q6H PRN PRN Reason: MODERATE PAIN Last Admin: 06/12/21 16:00 Dose: 1 tab Documented by: Pantoprazole Sodium (Pantoprazole Dr 40 Mg Tablet) 40 mg PO DAILY [facility] Last Admin: 06/12/21 09:29 Dose: 40 mg Documented by: Sevelamer Carbonate (Sevelamer 800 Mg Tablet) 1,600 mg PO TID [facility] Last Admin: 06/12/21 15:58 Dose: 1,600 mg Documented by: Vitals/I&O/Wt Last Vital Signs Temp 97.4 F L 06/15/21 17:41 Pulse 97 06/15/21 17:41 Resp 17 06/15/21 17:41 BP 165/82 06/15/21 17:41 Pulse Ox 98 06/15/21 17:41 06/15/21 06/15/21 06/15/21 06:59 14:59 22:59 Intake Total 540 / 540 360 / 900 Balance 540 / 540 360 / 900 Weight last 48 hrs Weight 205 lb 9.6 oz Weight 225 lb 12.8 oz Physical Exam Chest: OTHER: GENERAL: Patient is alert, awake and oriented x3. NECK: No jugular vein distension. HEENT: No cyanosis. No icterus. No pallor. HEART: Regular S1 and S2. No murmur, rub or gallop. LUNGS: Clear to auscultate bilaterally. ABDOMEN: Soft, nontender and nondistended. Positive bowel sounds. No guarding, rebound or tenderness. CENTRAL NERVOUS SYSTEM: Grossly nonfocal. EXTREMITIES: Lower extremities without edema bilaterally. Urinary Catheter Management: Blue: Cath Placed During This Visit: yes, but has since been removed by the nurse Reason for Continuing Indwelling Catheter: Acute Urinary Retention or Obstruction Urinary Catheter Date of Insertion: 06/10/21 Urinary Catheter Time of Insertion: 16:10 Date Urinary Catheter Removed: 06/14/21 Time Urinary Catheter Discontinued: 11:50 Data : 06/15/21 05:54 06/15/21 05:54 Micro: Microbiology 06/11/21 19:10 Gram Stain - Final Arm - #2 Abscess Culture - Final Methicillin Resis Staph Aureus 06/11/21 19:10 Anaerobic Culture - Preliminary Arm - #1 06/14/21 04:15 Blood Culture - Preliminary Blood NEGATIVE TO DATE 06/14/21 04:10 Blood Culture - Preliminary Blood NEGATIVE TO DATE A&P Assessment and plan (1) Endocarditis due to Staphylococcus: Continue IV antibiotic appear to be stable and afebrile Status: Acute (2) Staphylococcus aureus bacteremia: Status: Deleted (3) Severe mitral regurgitation: Patient may require surgical intervention months clear infection, patient is appear to be stable Status: Acute (4) Tricuspid regurgitation: Continue IV antibiotic Status: Acute (5) Hemodialysis catheter infection: Patient is planning to have the dialysis catheter placement today Status: Acute Qualifiers: Encounter type: subsequent encounter Qualified Code(s): T82.7XXD - Infection and inflammatory reaction due to other cardiac and vascular devices, implants and grafts, subsequent encounter (6) ESRD (end stage renal disease) on dialysis: Management as per the nephrology service Status: Acute Plan Other problems are Hypertension Multiple substance abuse Continue on the current treatment pressures Attestations Medical Necessity Statement*: Patient require continuation hospitalization for above defined care Coding Level of Care Code Established Pt Acute Interventionist for Glendy Fwsami Patient Type Established History Detailed Exam Detailed Medical Decision Making Moderate Complexity Diagnoses Endocarditis due to Staphylococcus I33.0; B95.8 Staphylococcus aureus bacteremia R78.81; B95.61 Severe mitral regurgitation I34.0 Tricuspid regurgitation I07.1 Hemodialysis catheter infection T82.7XXD Encounter type: subsequent encounter ESRD (end stage renal disease) on dialysis N18.6; Z99.2
--- NOTE | 2021-06-15 18:37 | PM.PN ---
Subjective Subjective: Interval history: Infectious disease progress note: No new complaints, wishes to return home soon Blood cx remains negative thus far from 06/11 Plan now for tunneled HD next week Medications: Reviewed: Yes Medication Review Details: Current Medications Acetaminophen (Acetaminophen 325 Mg Tablet) 650 mg PO Q6H PRN PRN Reason: Mild/Mod Pain Or Temp >/= 101 Last Admin: 06/18/21 17:02 Dose: 650 mg Documented by: Carvedilol (Carvedilol 25 Mg Tablet) 25 mg PO BID@0900,2100 [facility] Last Admin: 06/18/21 20:18 Dose: 25 mg Documented by: Clonidine HCl (Clonidine 0.1 Mg Tablet) 0.1 mg PO TID [facility] Last Admin: 06/18/21 20:17 Dose: 0.1 mg Documented by: Ferrous Gluconate (Ferrous Gluconate 324 Mg Tablet) 324 mg PO BIDWM [facility] Last Admin: 06/18/21 16:55 Dose: 324 mg Documented by: Furosemide (Furosemide 10 Mg/Ml Sdv 10ml) 60 mg IVP DAILY [facility] Last Admin: 06/18/21 08:23 Dose: 60 mg Documented by: Heparin Sodium (Porcine) (Heparin 5,000 Unit/Ml Inj 1 Ml) 5,000 unit SUBCUT Q12H [facility] Last Admin: 06/18/21 20:18 Dose: 5,000 unit Documented by: Hydralazine HCl (Hydralazine 50 Mg Tablet) 50 mg PO TID [facility] Last Admin: 06/18/21 20:18 Dose: 50 mg Documented by: Sodium Chloride (Sodium Chloride 0.9%) 1,000 mls @ 0 mls/hr IV .Q0M PRN PRN Reason: hypotension or symptomatic Vancomycin HCl 1,000 mg/ (Sodium Chloride) 250 mls @ 250 mls/hr IV DIALYSIS [facility]; Protocol Last Admin: 06/18/21 10:37 Dose: Not Given Documented by: Epoetin Avial 10,000 unit/ N/A 0.5 mls @ 0 mls/hr IVP QMWF [facility] Sodium Chloride (Sodium Chloride 0.9%) 1,000 mls @ 30 mls/hr IV .Q24H [facility] Last Admin: 06/18/21 12:31 Dose: 30 mls/hr Documented by: Minoxidil (Minoxidil 10 Mg Tablet) 5 mg PO DAILY [facility] Last Admin: 06/18/21 08:21 Dose: 5 mg Documented by: Nifedipine (Nifedipine Er (24 Hr) 30 Mg Tablet) 90 mg PO DAILY [facility] Last Admin: 06/18/21 08:22 Dose: 90 mg Documented by: Ondansetron HCl (Ondansetron 2 Mg/Ml Sdv 2 Ml) 4 mg IVP Q8H PRN PRN Reason: vomiting, or N/V if npo Last Admin: 06/14/21 04:14 Dose: 4 mg Documented by: Pantoprazole Sodium (Pantoprazole Dr 40 Mg Tablet) 40 mg PO DAILY [facility] Last Admin: 06/18/21 10:43 Dose: 40 mg Documented by: Sevelamer Carbonate (Sevelamer 800 Mg Tablet) 1,600 mg PO TID [facility] Last Admin: 06/18/21 20:18 Dose: 1,600 mg Documented by: Vitals/I&O/Wt Last Vital Signs Temp 97.4 F L 06/15/21 17:41 Pulse 97 06/15/21 17:41 Resp 17 06/15/21 17:41 BP 165/82 06/15/21 17:41 Pulse Ox 98 06/15/21 17:41 06/15/21 06/15/21 06/15/21 06:59 14:59 22:59 Intake Total 540 / 540 360 / 900 Balance 540 / 540 360 / 900 Weight last 48 hrs Weight 93.259 kg Weight 102.421 kg Physical Exam Narrative: EXAM NARRATIVE: GEN: Awake, alert and oriented, no acute distress CVS: S1S2 N RS: CTA B/L Abd: Soft, nt/nd , bs+ BRIDGE BUILDER: no focal neuro deficits EXT: right extensor forearm and wrist tender, warm and eryhthematous. Urinary Catheter Management: Blue: Cath Placed During This Visit: yes, but has since been removed by the nurse Reason for Continuing Indwelling Catheter: Acute Urinary Retention or Obstruction Urinary Catheter Date of Insertion: 06/10/21 Urinary Catheter Time of Insertion: 16:10 Date Urinary Catheter Removed: 06/14/21 Time Urinary Catheter Discontinued: 11:50 Data : 06/19/21 04:10 06/19/21 04:10 Micro: Microbiology 06/11/21 19:10 Gram Stain - Final Arm - #2 Abscess Culture - Final Methicillin Resis Staph Aureus 06/11/21 19:10 Anaerobic Culture - Preliminary Arm - #1 06/14/21 04:15 Blood Culture - Preliminary Blood NEGATIVE TO DATE 06/14/21 04:10 Blood Culture - Preliminary Blood NEGATIVE TO DATE A&P Assessment and plan (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 #Positive blood cultures on 06/07, 06/09. Thus far negative from 06/11 and 06/14. Continue vancomycin, with target trough of 15-20. BALTAZAR with echogenic lesions on the anterior mitral annulus, posterior mitral leaflet and posterior tricuspid valve measuring between 1 to 0.5 cm in size suggestive of endocarditis. Features of severe MR with a regurgitant fraction of 69%. Moderately severe tricuspid regurgitation. And a possible small patent ramos ovale. Additionally also with right forearm abscess, cx consistent with MRSA. S/p removal of HD tunneled cath on 06/10, also with h/o prior HD cath infection with septicemia 6 months ago. Uncertain if valvular vegetations were additionally seen at that time, with residual changes visible now. Discussed with nephrology- plan for halfway PD deferred to outpatient as at this time, okay from ID standpoint to place tunneled HD cath next week once blood cx definituve negative for at least 72 hrs. recommend to continue IV vancomycin for at least 6 weeks course from clearance of blood culture. Thereafter we will follow patient in infectious disease clinic and switch to oral antibiotics for suppression until valvular surgery can be performed given recurrence of bacteremia. will follow Attestations Medical Necessity Statement*: see admitting note Coding Level of Care Code Acute Collaborating Supervising Physician for [employer] Fwd Diagnoses Endocarditis due to Staphylococcus I33.0; B95.8 Moderate to severe mitral regurgitation I34.0 Right forearm pain M79.631 Hemodialysis catheter infection T82.7XXD Encounter type: subsequent encounter Abscess of right forearm L02.413
--- NOTE | 2021-06-15 19:36 | PC.NURSE ---
Shift report received from Windy BARRIENTOS. Patient sitting up in bed watching TV. IV patent infusing blood at this time. Telemetry monitoring present. Denies pain. No needs voiced at this time.
[2021-06-15 22:48] LABS: Hematocrit 27.9 % (42.0-52.0); Hemoglobin 8.7 g/dL (11.7-16.6)
[2021-06-16] VITALS (11 sets, daily range): BP systolic 124–161; BP diastolic 77–87; PULSE 87–98; RESP 16–20; TEMP 36.6–37.2; O2SAT 91–98
[2021-06-16 04:50] LABS: Basophils # 0.1 10^3/uL (0.0-0.1); Eosinophils # 0.5 10^3/uL (0.0-0.8); Eosinophils % 5.2 %; Hematocrit 26.5 % (42.0-52.0); Hemoglobin 8.1 g/dL (11.7-16.6); Lymphocytes # 1.3 10^3/uL (0.8-4.8); Lymphocytes % 13.2 %; Mean Corpuscular HGB Conc 30.6 g/dL (30.0-36.0); Mean Corpuscular Hemoglobin 26.6 pg (28.0-34.0); Mean Corpuscular Volume 87.2 fl (80-94); Monocytes % 9.9 %; Neutrophils # 6.69 10^3/uL (1.8-7.7); Nucleated Red Blood Cells % 0 %; Platelet Count 344 10^3/cmm (130-400); Red Blood Count 3.04 10^6/uL (4.1-5.3); Red Cell Distribution Width 19.5 % (12.1-15.1); White Blood Count 9.9 10^3/uL (4.0-10.0)
[2021-06-16 05:16] LABS: Vancomycin Random 19.7 ug/mL (20.0-40.0)
[2021-06-16 05:18] LABS: Alanine Aminotransferase < 5 U/L (0-41); Albumin Level 3.4 g/dL (3.5-5.2); Alkaline Phosphatase 86 IU/L (40-130); Anion Gap 21.4 (5-19); Aspartate Amino Transferase 18 U/L (0-40); Blood Urea Nitrogen 55 mg/dL (6-20); Calcium 9.7 mg/dL (8.5-10.5); Carbon Dioxide 18 mmol/L (22-29); Chloride 104 mmol/L (98-107); Globulin 2.9 g/dL (1.3-4.6); Glomerular Filtration Rate 7.4 mL/min (90-130); Glucose 105 mg/dL (65-115); Osmolality Calculated 301 mOsm/kg (285-295); Potassium 5.4 mmol/L (3.5-5.1); Sodium 138 mmol/L (136-145); Total Bilirubin 0.3 mg/dL (0.15-1.2); Total Protein 6.3 g/dL (6.6-8.7)
--- NOTE | 2021-06-16 09:00 | P.PN_ITS ---
Subjective Subjective: Interval history: feels better. wants to get new permacath and go home. denies n/v/f/c/dunaway/d Medications: Reviewed: Yes Medication Review Details: Current Medications Acetaminophen (Acetaminophen 325 Mg Tablet) 650 mg PO Q6H PRN PRN Reason: Mild/Mod Pain Or Temp >/= 101 Last Admin: 06/14/21 20:54 Dose: 650 mg Documented by: Carvedilol (Carvedilol 25 Mg Tablet) 25 mg PO BID@0900,2100 [facility] Last Admin: 06/15/21 21:01 Dose: 25 mg Documented by: Chlorhexidine Gluconate (Chlorhexidine Gluconate 4% Btl 118 Ml) 1 applic TOPICAL DAILY [facility] Stop: 06/19/21 08:59 Last Admin: 06/15/21 09:18 Dose: 1 applic Documented by: Clonidine HCl (Clonidine 0.1 Mg Tablet) 0.2 mg PO TID [facility] Last Admin: 06/15/21 20:59 Dose: 0.2 mg Documented by: Ferrous Gluconate (Ferrous Gluconate 324 Mg Tablet) 324 mg PO BIDWM [facility] Last Admin: 06/15/21 16:28 Dose: 324 mg Documented by: Furosemide (Furosemide 10 Mg/Ml Sdv 10ml) 60 mg IVP Q12H [facility] Last Admin: 06/15/21 22:31 Dose: 60 mg Documented by: Heparin Sodium (Porcine) (Heparin 5,000 Unit/Ml Inj 1 Ml) 5,000 unit SUBCUT Q12H [facility] Last Admin: 06/15/21 20:58 Dose: 5,000 unit Documented by: Hydralazine HCl (Hydralazine 50 Mg Tablet) 100 mg PO TID [facility] Last Admin: 06/15/21 20:59 Dose: 100 mg Documented by: Sodium Chloride (Sodium Chloride 0.9%) 1,000 mls @ 0 mls/hr IV .Q0M PRN PRN Reason: hypotension or symptomatic Epoetin Avila 3,000 unit/ N/A 0.15 mls @ 0 mls/hr IVP QMWF [facility] Last Infusion: 06/13/21 14:05 Dose: Infused Documented by: Minoxidil (Minoxidil 10 Mg Tablet) 5 mg PO DAILY [facility] Last Admin: 06/15/21 09:17 Dose: 5 mg Documented by: Mupirocin (Mupirocin Oint Gm) 1 applic NOSTRIL-B BID [facility] Stop: 06/19/21 08:59 Last Admin: 06/15/21 16:29 Dose: Not Given Documented by: Nifedipine (Nifedipine Er (24 Hr) 30 Mg Tablet) 90 mg PO DAILY [facility] Last Admin: 06/15/21 09:15 Dose: 90 mg Documented by: Ondansetron HCl (Ondansetron 2 Mg/Ml Sdv 2 Ml) 4 mg IVP Q8H PRN PRN Reason: vomiting, or N/V if npo Last Admin: 06/14/21 04:14 Dose: 4 mg Documented by: Pantoprazole Sodium (Pantoprazole Dr 40 Mg Tablet) 40 mg PO DAILY [facility] Last Admin: 06/15/21 09:16 Dose: 40 mg Documented by: Sevelamer Carbonate (Sevelamer 800 Mg Tablet) 1,600 mg PO TID [facility] Last Admin: 06/15/21 20:58 Dose: 1,600 mg Documented by: Vitals/I&O/Wt Last Vital Signs Temp 98.2 F 06/16/21 04:00 Pulse 87 06/16/21 04:00 Resp 16 06/16/21 04:00 BP 131/78 06/16/21 04:00 Pulse Ox 96 06/16/21 04:00 06/15/21 06/16/21 06/16/21 22:59 06:59 14:59 Intake Total 460 / 1000 240 / 1240 Output Total 100 / 100 100 / 200 Balance 360 / 900 140 / 1040 Weight last 48 hrs Weight 93.259 kg Physical Exam Narrative: EXAM NARRATIVE: in bed, NARD, VSS heent- nc/at, eomi, anicteric neck supple lung crackles b/l heart reg, +XIMENA abd soft, nt, nd, + bs ext LLE BKA, 1+ RLE edema LUE AVF neuro- a,a, o x 3 femoral shiley Urinary Catheter Management: Blue: Cath Placed During This Visit: yes, but has since been removed by the nurse Reason for Continuing Indwelling Catheter: Acute Urinary Retention or Obstruction Urinary Catheter Date of Insertion: 06/10/21 Urinary Catheter Time of Insertion: 16:10 Date Urinary Catheter Removed: 06/14/21 Time Urinary Catheter Discontinued: 11:50 Data : 06/16/21 03:50 06/16/21 03:50 Micro: Microbiology 06/11/21 03:05 Blood Culture - Final Blood NO GROWTH AFTER 5 DAYS 06/11/21 03:05 Blood Culture - Final Blood NO GROWTH AFTER 5 DAYS 06/11/21 19:10 Gram Stain - Final Arm - #2 Abscess Culture - Final Methicillin Resis Staph Aureus 06/11/21 19:10 Anaerobic Culture - Preliminary Arm - #1 06/14/21 04:15 Blood Culture - Preliminary Blood NEGATIVE TO DATE 06/14/21 04:10 Blood Culture - Preliminary Blood NEGATIVE TO DATE A&P Assessment and plan (1) ESRD (end stage renal disease) on dialysis: Seen via telehealth with assistance of RN at bedside 1. ESRD - HD today -phos binder -new permacath hopefully today 2. staph aureus bacteremia, wrist abscess, eendocarditis- - renal dose abx -keep vanco trough under 20 - can give vanco 500 mgm iv today or 1 gm in am -Per Dr. Yoder of cardiology- he has severe eccentric mitral regurgitation.? He may benefit from surgical intervention, once infection is appropriately treated.? Surgical consult would be appropriate. -would consider PD for retirement 3. Anemia, Hb 8.1- epogen mwf -no iv iron w/ bacteremia 4. hyperkalemia- low k diet 5. Hypertension- improved - remove fluids on hd. dec meds 6. hyperphosphatemia- binders 7. BASSAM per medicine seen and examined w/ RN- telehealth visit time spent . 30 min Status: Acute Plan as above Attestations Medical Necessity Statement*: esrd, mrsa bacteremia Time Spent in Patient Care: 16 - 35 minutes (>than 50% of time spent in counselling and/or direct pt care on unit) . Coding Level of Care Code Acute [employer] for [employer] Diagnoses ESRD (end stage renal disease) on dialysis N18.6; Z99.2
[2021-06-16] MEDS: carvedilol 25 mg Tablet PO ×2 (09:25→22:59)
[2021-06-16] MEDS: sevelamer 800 mg Tablet 1600 MG PO ×3 (09:25→22:46)
[2021-06-16] MEDS: NIFEdipine ER (24 hr) 30 mg Tablet 90 MG PO (09:25)
[2021-06-16] MEDS: FUROsemide 10 mg/mL SDV 10mL 60 MG IVP ×2 (09:25→22:47)
[2021-06-16] MEDS: pantoprazole DR 40 mg Tablet PO (09:25)
[2021-06-16] MEDS: ferrous gluconate 324 mg Tablet PO ×2 (09:26→16:40)
[2021-06-16] MEDS: heparin 5,000 unit/mL INJ 1 mL 5000 UNIT SUBCUT ×2 (09:26→22:46)
[2021-06-16] MEDS: cloNIDine 0.1 mg Tablet 0.2 MG PO (09:26)
[2021-06-16] MEDS: chlorhexidine gluconate 4% Btl 118 mL 1 APPLIC TOPICAL (09:27)
[2021-06-16] MEDS: hyDRALAzine 50 mg Tablet 100 MG PO (09:27)
[2021-06-16] MEDS: mupirocin oint 22 gm 1 APPLIC NOSTRIL-B (09:28)
[2021-06-16] MEDS: minoxidil 10 mg Tablet 5 MG PO (10:56)
--- NOTE | 2021-06-16 13:28 | PM.PN ---
Subjective Subjective: Interval history: No acute events overnight. Denies any nausea, vomiting, headache. Laying comfortably in bed. Plan for dialysis today. Has remained hemodynamically stable. Medications: Reviewed: Yes Medication Review Details: Acetaminophen (Acetaminophen 325 Mg Tablet) 650 mg PO Q6H PRN PRN Reason: Mild/Mod Pain Or Temp >/= 101 Last Admin: 06/08/21 19:51 Dose: 650 mg Documented by: Carvedilol (Carvedilol 25 Mg Tablet) 25 mg PO BID@0900,2100 [facility] Clonidine HCl (Clonidine 0.1 Mg/24 Hr Patch) 1 patch TRANSDERMA Q7D [facility] Last Admin: 06/10/21 11:44 Dose: 1 patch Documented by: Ferrous Gluconate (Ferrous Gluconate 324 Mg Tablet) 324 mg PO BIDWM [facility] Last Admin: 06/10/21 17:37 Dose: 324 mg Documented by: Furosemide (Furosemide 10 Mg/Ml Sdv 10ml) 60 mg IVP Q12H [facility] Last Admin: 06/10/21 11:44 Dose: 60 mg Documented by: Heparin Sodium (Porcine) (Heparin 5,000 Unit/Ml Inj 1 Ml) 5,000 unit SUBCUT Q12H [facility] Last Admin: 06/10/21 08:30 Dose: 5,000 unit Documented by: Heparin Sodium (Porcine) (Heparin, Porcine 1,000 Unit/Ml Inj 10 Ml) 10,000 unit HE ONCE PRN PRN Reason: Dialysis Hydralazine HCl (Hydralazine 50 Mg Tablet) 100 mg PO TID [facility] Last Admin: 06/10/21 14:37 Dose: 100 mg Documented by: Sodium Chloride (Sodium Chloride 0.9%) 1,000 mls @ 0 mls/hr IV .Q0M PRN PRN Reason: hypotension or symptomatic Piperacillin Sod/Tazobactam (Sod 3.375 gm/ Sodium Chloride) 50 mls @ 12.5 mls/hr IV Q12H [facility]; Protocol Last Admin: 06/10/21 14:40 Dose: 12.5 mls/hr Documented by: Vancomycin HCl 1,000 mg/ (Sodium Chloride) 250 mls @ 250 mls/hr IV Q48H [facility] Last Infusion: 06/10/21 06:20 Dose: Infused Documented by: Epoetin Avila 5,000 unit/ N/A 0.25 mls @ 0 mls/hr IVP QMWF [facility] Minoxidil (Minoxidil 10 Mg Tablet) 5 mg PO DAILY [facility] Last Admin: 06/10/21 08:28 Dose: 5 mg Documented by: Nifedipine (Nifedipine Er (24 Hr) 30 Mg Tablet) 90 mg PO DAILY [facility] Last Admin: 06/10/21 08:30 Dose: 90 mg Documented by: Ondansetron HCl (Ondansetron 2 Mg/Ml Sdv 2 Ml) 4 mg IVP Q8H PRN PRN Reason: vomiting, or N/V if npo Last Admin: 06/08/21 20:32 Dose: 4 mg Documented by: Oxycodone/Acetaminophen (Oxycodone-Apap 5-325 Mg Tablet) 1 tab PO Q6H PRN PRN Reason: MODERATE PAIN Pantoprazole Sodium (Pantoprazole Dr 40 Mg Tablet) 40 mg PO DAILY [facility] Last Admin: 06/10/21 08:30 Dose: 40 mg Documented by: Vitals/I&O/Wt Last Vital Signs Temp 98.0 F 06/16/21 12:00 Pulse 94 06/16/21 12:00 Resp 18 06/16/21 12:00 BP 130/87 06/16/21 12:00 Pulse Ox 96 06/16/21 12:00 06/15/21 06/16/21 06/16/21 22:59 06:59 14:59 Intake Total 460 / 1000 240 / 1240 Output Total 100 / 100 100 / 200 Balance 360 / 900 140 / 1040 Weight last 48 hrs Weight 93.259 kg Physical Exam Const: COMMON NORMALS: no acute distress, patient oriented x3 and alert GENERAL APPEARANCE: cooperative ORIENTATION/CONSCIOUSNESS: Yes awake OTHER: Very [place] HENMT: COMMON NORMALS: oropharynx normal Neck/C-Spine: COMMON NORMALS: no JVD Chest: OTHER: R chest tunneled catheter, currently do not appreciate erythema or drainage from the access site or significant swelling Resp: COMMON NORMALS: normal respiratory effort and clear to auscultation bilaterally AUSCULTATION: clear to auscultation bilaterally Cardio: COMMON NORMALS: no JVD, regular rhythm, S1 normal heart sound present, S2 normal heart sound present and No murmurs present (Cardio) RHYTHM: regular rhythm HEART SOUNDS: S1 normal heart sound present, S2 normal heart sound present and Murmur heart sound present systolic Location: apex Intensity: II/ Timing: holo GI: COMMON NORMALS: Normal to inspection, nondistended, normoactive bowel sounds present and Soft to palpation INSPECTION: Yes abdominal distension PALPATION: Yes Soft to palpation and Yes Tenderness to palpation present (GI) (Mild-moderate nonlocalized, reports chronic) Extremity: COMMON NORMALS: no joint enlargement and no pedal edema OTHER: Left forearm fistula, without any thrill, R forearm postoperative dressings present. Once removal of dressing surgical sutures present. No drain, mildly erythematous and swollen. Not warm to touch. Neuro: COMMON NORMALS: patient oriented x3 and moves all extremities SENSORIUM/ORIENTATION: Yes alert Skin: COMMON NORMALS: no rashes or lesions noted GENERAL SKIN EXAM: no rashes or lesions noted OTHER: Diffuse excoriated lesions on face, LE, he states started after strawberry allergy Urinary Catheter Management: Blue: Cath Placed During This Visit: yes, but has since been removed by the nurse Reason for Continuing Indwelling Catheter: Acute Urinary Retention or Obstruction Urinary Catheter Date of Insertion: 06/10/21 Urinary Catheter Time of Insertion: 16:10 Date Urinary Catheter Removed: 06/14/21 Time Urinary Catheter Discontinued: 11:50 Data : 06/16/21 03:50 06/16/21 03:50 Micro: Microbiology 06/11/21 03:05 Blood Culture - Final Blood NO GROWTH AFTER 5 DAYS 06/11/21 03:05 Blood Culture - Final Blood NO GROWTH AFTER 5 DAYS 06/11/21 19:10 Gram Stain - Final Arm - #2 Abscess Culture - Final Methicillin Resis Staph Aureus 06/11/21 19:10 Anaerobic Culture - Preliminary Arm - #1 A&P Assessment and plan (1) 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 Status: Acute (4) Hemodialysis catheter infection: Status: Acute Qualifiers: Encounter type: subsequent encounter Qualified Code(s): T82.7XXD - Infection and inflammatory reaction due to other cardiac and vascular devices, implants and grafts, subsequent encounter (5) Abscess of right forearm: Status: Acute (6) MRSA bacteremia: Status: Acute (7) Moderate mitral regurgitation: New finding. Most likely secondary to infective endocarditis. Given extensive mitral regurgitation patient will most likely need a mitral clipping versus mitral valve replacement going forward once infective endocarditis clears up or sooner if he continues to remain persistently bacteremic. Status: Acute (8) Hypoxia: Status: Acute (9) Diastolic heart failure: Status: Acute (10) Dialysis patient, noncompliant: Status: Acute (11) HTN (hypertension): Status: Acute (12) Cardiomegaly: Status: Acute (13) LVH (left ventricular hypertrophy): With history of hypertension. Not adherent with hemodialysis. I am not not certain that he is adherent with his medications at home. Continue HTN medicines. Aspirin, beta-lucas. Stress test when able. Unclear benefit of statin in setting of ESRD on dialysis. Status: Acute (14) Severe tricuspid regurgitation: Status: Acute (15) Ascites: Most likely from diastolic heart failure. Seems to be improving with regular dialysis. Check hepatitis panel, HIV. Status: Acute (16) Acute hyperkalemia: Resolved. On hemodialysis. Check daily BMP. 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 BALTAZAR results consistent with echogenic density seen on posterior mitral leaflet, posterior tricuspid valve measuring 1 to 0.5 cm in size suggestive of endocarditis. Post I&D of forearm abscess on 06/11. HD catheter removed 06/10 Blood cultures from 06/09 also positive. Repeat blood cultures sent 06/11 so far negative Trying to give line holiday. Temporal dialysis catheter placed on 06/13 For now continue with vancomycin. Repeat dose of vancomycin postdialysis today. Continue to check vancomycin random level daily for now. Target levels 15-20. Dose vancomycin accordingly. Decolonization as per ID. Right forearm abscess: Post I&D with orthopedics on 06/11. Slightly swollen on examination today discussed with orthopedics. After examination for now they are not concerned. Continue with wound care. CKD: Appreciate nephrology recommendations. Plan for line holiday. Removal of HD catheter on 06/10. Case discussed again with nephrology. Plan now is for a possible tunneled HD catheter to be placed once blood cultures are cleared up as no contact made through with patient's outpatient dialysis or mental health professional and it might not be safe for patient to go out on peritoneal dialysis currently. Possible plan for HD catheter on Wednesday/Wednesday Monitor BMP daily. Hyperkalemia seems to be resolved. Hypoxia: Resolved. COVID-19 PCR negative.? Most likely secondary to congestive diastolic heart failure. Perfusion study low probability for PE. Hemodialysis with negative fluid balance. Continue with Lasix to 60 mg IV every 12 hourly. Monitor strict input output charting. Hypertension: Goal blood pressure less than 140/90 mmHg. Blood pressure better controlled. Continue with home dose of hydralazine, nifedipine. Continue with Coreg 25 mg twice daily and clonidine 0.1 milligrams 3 times a day. Full code. Dialysis regular diet. Protonix for PUD prophylaxis. Heparin for DVT prophylaxis. Discharge planning: Will need 6 weeks of antibiotics. Plan for tunneled catheter placement once blood cultures remain negative. Plan for possible vancomycin post dialysis for next 6 weeks. Can plan to discharge home with tunneled catheter and IV antibiotics. Plan for today: Blood cultures so far negative from . Plan for dialysis day. Tunnel cath to be placed on redness today with Dr. Worthington. Follow-up daily Vanco random levels. Clonidine 0.1 mg 3 times a day. Postop arm swelling discussed in detail with Dr. Coelho. Follow-up wants to continue the dressings as before. Attestations Medical Necessity Statement*: Requires further hospitalization for MRSA endocarditis needing tunneled catheter placement once blood cultures are negative in setting of CKD on maintenance hemodialysis Time Spent in Patient Care: Greater than 35 minutes Coding Level of Care Code Acute Title I Director for [facility] Fwd History Comprehensive Exam Comprehensive Medical Decision Making High Complexity Diagnoses Endocarditis due to Staphylococcus I33.0; B95.8 Moderate to severe mitral regurgitation I34.0 Right forearm pain M79.631 Hemodialysis catheter infection T82.7XXD Encounter type: subsequent encounter Abscess of right forearm L02.413 MRSA bacteremia R78.81; B95.62 Moderate mitral regurgitation I34.0 Hypoxia R09.02 Diastolic heart failure I50.30 Dialysis patient, noncompliant Z91.15 HTN (hypertension) I10 Cardiomegaly I51.7 LVH (left ventricular hypertrophy) I51.7 Severe tricuspid regurgitation I07.1 Ascites R18.8 Acute hyperkalemia E87.5 Uremia N19
[2021-06-16] MEDS: heparin, porcine 1,000 unit/mL INJ 10 mL 10000 UNIT HE (16:33)
[2021-06-16] MEDS: hyDRALAzine 50 mg Tablet PO ×2 (16:40→22:47)
[2021-06-16] MEDS: cloNIDine 0.1 mg Tablet PO ×2 (16:40→22:58)
--- NOTE | 2021-06-16 19:34 | CTR_ITS ---
PROCEDURE INFORMATION: Exam: CT Right Upper Extremity With Contrast, Forearm Exam date and time: 06/16/2021 7:34 PM Age: 35 years old Clinical indication: Pain; Lower or forearm; Right; Additional info: Abscess, post op day 5 bogginess TECHNIQUE: Imaging protocol: CT of the Right upper extremity with intravenous contrast was performed. Exam focused on the forearm. Radiation optimization: All CT scans at this facility use at least one of these dose optimization techniques: automated exposure control; mA and/or kV adjustment per patient size (includes targeted exams where dose is matched to clinical indication); or iterative reconstruction. Contrast material: VISI; Contrast volume: 95 ml; Contrast route: INTRAVENOUS (IV); COMPARISON: CT forearm RT w con 06/10/2021 9:55 PM RADIATION DOSE METRICS: Total DLP (mGy-cm): 974.66 FINDINGS: Bones/joints: No bone destruction or fracture. Soft tissues: Since the recent prior study a slightly rim enhancing intramuscular fluid collection in the distal forearm near the radius has slightly decreased in size. Currently this fluid measures 1.6 x 1.3 x 3.5 cm and previously measured 3.5 x 1.6 x 3.7 cm. No gas in the fluid. Overlying cutaneous disruption is likely postoperative. No new abscess. Persisting generalized subcutaneous edema in the forearm and wrist. CT/CT forearm RT w con IMPRESSION: Decreased distal forearm abscess.
[2021-06-16] MEDS: iodixanol 320 mg/mL 100mL Btl IV (22:22)
[2021-06-17] VITALS (10 sets, daily range): BP systolic 132–154; BP diastolic 74–96; PULSE 68–103; RESP 16–18; TEMP 36.6–37; O2SAT 94–97
--- NOTE | 2021-06-17 02:57 | PC.NURSE ---
Patient educated that he is not supposed to get up and walk with the groin hemodialysis catheter. Patient states understanding but continues to get up and go to the bathroom regardless. Will continue to monitor.
[2021-06-17 04:43] LABS: Basophils # 0.1 10^3/uL (0.0-0.1); Basophils % 0.7 %; Eosinophils # 0.4 10^3/uL (0.0-0.8); Eosinophils % 3.9 %; Hematocrit 26.7 % (42.0-52.0); Hemoglobin 8.3 g/dL (11.7-16.6); Lymphocytes # 1.1 10^3/uL (0.8-4.8); Lymphocytes % 10.9 %; Mean Corpuscular HGB Conc 31.1 g/dL (30.0-36.0); Mean Corpuscular Hemoglobin 27.3 pg (28.0-34.0); Mean Corpuscular Volume 87.8 fl (80-94); Mean Platelet Volume 9.7 fL (7.4-10.4); Monocytes % 9.4 %; Neutrophils % 71.9 %; Nucleated Red Blood Cells % 0 %; Platelet Count 391 10^3/cmm (130-400); Red Blood Count 3.04 10^6/uL (4.1-5.3); White Blood Count 10.3 10^3/uL (4.0-10.0)
[2021-06-17 05:08] LABS: Alanine Aminotransferase < 5 U/L (0-41); Albumin Level 3.5 g/dL (3.5-5.2); Alkaline Phosphatase 102 IU/L (40-130); Anion Gap 15.8 (5-19); Aspartate Amino Transferase 17 U/L (0-40); Blood Urea Nitrogen 44 mg/dL (6-20); Calcium 8.6 mg/dL (8.5-10.5); Carbon Dioxide 23 mmol/L (22-29); Chloride 102 mmol/L (98-107); Globulin 2.9 g/dL (1.3-4.6); Glomerular Filtration Rate 9.4 mL/min (90-130); Glucose 91 mg/dL (65-115); Magnesium 1.9 mg/dL (1.7-2.3); Osmolality Calculated 293 mOsm/kg (285-295); Phosphorus 3.1 mg/dL (2.5-4.5); Potassium 4.8 mmol/L (3.5-5.1); Sodium 136 mmol/L (136-145); Total Bilirubin 0.3 mg/dL (0.15-1.2); Total Protein 6.4 g/dL (6.6-8.7)
--- NOTE | 2021-06-17 05:16 | PC.NURSE ---
Frequent safety and comfort rounds continue. Orders and/or nursing care completed as indicated. Patient monitored for response to intervention and treatment(s). Education provided includes not getting up with groin catheter and using urinal when needed. Patient and/or field representatives director states understanding however continues to get up ad magnolia. Will continue to monitor.
[2021-06-17 05:19] LABS: Creatinine Clr Calc Pharmacy 18.5655
--- NOTE | 2021-06-17 07:52 | PC.NURSE ---
notified Brennan Draper from Pharmacy called me and said patient didn't get Procrit yesterday. I didn't have this patient yesterday so I don't know if it was given in dialysis yesterday or not.
--- NOTE | 2021-06-17 07:53 | PC.NURSE ---
notified Dr Worthington, Dr Lucero said he wanted to know when the perm dialysis cath will be placed today and if not he would like a call
--- NOTE | 2021-06-17 08:08 | PC.NURSE ---
Notified Dr Chapin, patient did get his Procrit per dialysis nurse.
[2021-06-17] MEDS: minoxidil 10 mg Tablet 5 MG PO (08:09)
[2021-06-17] MEDS: ferrous gluconate 324 mg Tablet PO ×2 (08:10→17:34)
[2021-06-17] MEDS: sevelamer 800 mg Tablet 1600 MG PO ×3 (08:10→20:15)
[2021-06-17] MEDS: hyDRALAzine 50 mg Tablet PO ×3 (08:10→20:15)
[2021-06-17] MEDS: heparin 5,000 unit/mL INJ 1 mL 5000 UNIT SUBCUT ×2 (08:10→20:14)
[2021-06-17] MEDS: cloNIDine 0.1 mg Tablet PO ×3 (08:10→20:15)
[2021-06-17] MEDS: FUROsemide 10 mg/mL SDV 10mL 60 MG IVP (08:10)
[2021-06-17] MEDS: carvedilol 25 mg Tablet PO ×2 (08:10→20:14)
[2021-06-17] MEDS: pantoprazole DR 40 mg Tablet PO (08:10)
[2021-06-17] MEDS: NIFEdipine ER (24 hr) 30 mg Tablet 90 MG PO (08:10)
[2021-06-17] MEDS: mupirocin oint 22 gm 1 APPLIC NOSTRIL-B ×2 (08:11→17:34)
[2021-06-17] MEDS: chlorhexidine gluconate 4% Btl 118 mL 1 APPLIC TOPICAL (08:13)
--- NOTE | 2021-06-17 08:34 | PM.PN ---
Subjective Subjective: Interval history: feels better. wants to go home. no n/v/f/c/dunaway/d Medications: Reviewed: Yes Medication Review Details: Current Medications Acetaminophen (Acetaminophen 325 Mg Tablet) 650 mg PO Q6H PRN PRN Reason: Mild/Mod Pain Or Temp >/= 101 Last Admin: 06/14/21 20:54 Dose: 650 mg Documented by: Carvedilol (Carvedilol 25 Mg Tablet) 25 mg PO BID@0900,2100 [facility] Last Admin: 06/17/21 08:10 Dose: 25 mg Documented by: Chlorhexidine Gluconate (Chlorhexidine Gluconate 4% Btl 118 Ml) 1 applic TOPICAL DAILY [facility] Stop: 06/19/21 08:59 Last Admin: 06/17/21 08:13 Dose: 1 applic Documented by: Clonidine HCl (Clonidine 0.1 Mg Tablet) 0.1 mg PO TID [facility] Last Admin: 06/17/21 08:10 Dose: 0.1 mg Documented by: Ferrous Gluconate (Ferrous Gluconate 324 Mg Tablet) 324 mg PO BIDWM [facility] Last Admin: 06/17/21 08:10 Dose: 324 mg Documented by: Furosemide (Furosemide 10 Mg/Ml Sdv 10ml) 60 mg IVP Q12H [facility] Last Admin: 06/17/21 08:10 Dose: 60 mg Documented by: Heparin Sodium (Porcine) (Heparin 5,000 Unit/Ml Inj 1 Ml) 5,000 unit SUBCUT Q12H [facility] Last Admin: 06/17/21 08:10 Dose: 5,000 unit Documented by: Hydralazine HCl (Hydralazine 50 Mg Tablet) 50 mg PO TID [facility] Last Admin: 06/17/21 08:10 Dose: 50 mg Documented by: Sodium Chloride (Sodium Chloride 0.9%) 1,000 mls @ 0 mls/hr IV .Q0M PRN PRN Reason: hypotension or symptomatic Epoetin Avila 6,000 unit/ N/A 0.3 mls @ 0 mls/hr IVP QMWF [facility] Last Admin: 06/16/21 16:33 Dose: Not Given Documented by: Minoxidil (Minoxidil 10 Mg Tablet) 5 mg PO DAILY [facility] Last Admin: 06/17/21 08:09 Dose: 5 mg Documented by: Mupirocin (Mupirocin Oint 22 Gm) 1 applic NOSTRIL-B BID [facility] Stop: 06/19/21 08:59 Last Admin: 06/17/21 08:11 Dose: 1 applic Documented by: Nifedipine (Nifedipine Er (24 Hr) 30 Mg Tablet) 90 mg PO DAILY [facility] Last Admin: 06/17/21 08:10 Dose: 90 mg Documented by: Ondansetron HCl (Ondansetron 2 Mg/Ml Sdv 2 Ml) 4 mg IVP Q8H PRN PRN Reason: vomiting, or N/V if npo Last Admin: 06/14/21 04:14 Dose: 4 mg Documented by: Pantoprazole Sodium (Pantoprazole Dr 40 Mg Tablet) 40 mg PO DAILY [facility] Last Admin: 06/17/21 08:10 Dose: 40 mg Documented by: Sevelamer Carbonate (Sevelamer 800 Mg Tablet) 1,600 mg PO TID [facility] Last Admin: 06/17/21 08:10 Dose: 1,600 mg Documented by: Vitals/I&O/Wt Last Vital Signs Temp 97.9 F 06/17/21 07:35 Pulse 96 06/17/21 07:35 Resp 16 06/17/21 07:35 BP 152/96 06/17/21 08:10 Pulse Ox 94 06/17/21 07:35 06/16/21 06/17/21 06/17/21 22:59 06:59 14:59 Intake Total 300 / 300 480 / 780 Output Total 3300 / 3300 Balance -3000 / -3000 480 / -2520 Weight last 48 hrs Weight 94.529 kg Weight 94.347 kg Weight 95.4 kg Physical Exam Narrative: EXAM NARRATIVE: in bed, NARD, VSS heent- nc/at, eomi, anicteric neck supple lung clear b/l heart reg, +XIMENA abd soft, nt, nd, + bs ext LLE BKA, trace RLE edema LUE AVF neuro- a,a, o x 3 femoral shiley Urinary Catheter Management: Blue: Cath Placed During This Visit: yes, but has since been removed by the nurse Reason for Continuing Indwelling Catheter: Acute Urinary Retention or Obstruction Urinary Catheter Date of Insertion: 06/10/21 Urinary Catheter Time of Insertion: 16:10 Date Urinary Catheter Removed: 06/14/21 Time Urinary Catheter Discontinued: 11:50 Data : 06/17/21 04:08 02/01/22 04:08 Micro: Microbiology 06/11/21 19:10 Anaerobic Culture - Preliminary Arm - #1 06/11/21 03:05 Blood Culture - Final Blood NO GROWTH AFTER 5 DAYS 06/11/21 03:05 Blood Culture - Final Blood NO GROWTH AFTER 5 DAYS A&P Assessment and plan (1) ESRD (end stage renal disease) on dialysis: Seen via telehealth with assistance of RN at bedside 1. ESRD - HD in am- via new permacath -phos binder -remove shiley catheter -new permacath hopefully in am 2. staph aureus bacteremia, wrist abscess, eendocarditis- - renal dose abx -keep vanco trough under 20 - can give vanco 500 mgm iv today or 1 gm in am -Per Dr. Yoder of cardiology- he has severe eccentric mitral regurgitation.? He may benefit from surgical intervention, once infection is appropriately treated.? Surgical consult would be appropriate. last cx + 1- 3. Anemia, Hb 8.3- epogen mwf -no iv iron w/ bacteremia 4. Hypertension- improved - remove fluids on hd. dec meds 5. hyperphosphatemia- improved w/ HD and binders discussed w/ Dr. Cohen seen and examined w/ RN- telehealth visit time spent 25 min Status: Acute Plan as above Attestations Medical Necessity Statement*: endocarditis, esrd, bacteremia- awaits permanent dialysis access Time Spent in Patient Care: 16 - 35 minutes (>than 50% of time spent in counselling and/or direct pt care on unit). Coding Level of Care Code Acute Engine Turner for Glendy Sanchez Diagnoses ESRD (end stage renal disease) on dialysis N18.6; Z99.2
[2021-06-17] MEDS: sodium polystyrene sulfonate 15 gm/60 mL Btl 30 GM PO (12:10)
[2021-06-17] MEDS: vancomycin 1,000 MG in sodium chloride 0.9% 250 ML 250 MG IV (12:11)
--- NOTE | 2021-06-17 16:03 | P.PN_ITS ---
Subjective Subjective: Interval history: Patient was seen this morning, is ambulating around his room, complaining about a catheter in his current right groin, he wonders when he is going to have his dialysis catheter placed, no fevers, no chills, no nausea, no vomiting, does not complain of right arm pain, Vitals/I&O/Wt Last Vital Signs Temp 97.9 F 06/17/21 07:35 Pulse 68 06/17/21 11:37 Resp 16 06/17/21 11:37 BP 154/89 06/17/21 14:27 Pulse Ox 97 06/17/21 11:37 06/17/21 06/17/21 06/17/21 06:59 14:59 22:59 Intake Total 480 / 780 490 / 490 Balance 480 / -2520 490 / 490 Weight last 48 hrs Weight 94.529 kg Weight 94.347 kg Weight 95.4 kg Physical Exam Const: COMMON NORMALS: no acute distress and patient oriented x3 Resp: COMMON NORMALS: normal respiratory effort, No retractions, No use of accessory muscles and clear to auscultation bilaterally AUSCULTATION: clear to auscultation bilaterally Cardio: COMMON NORMALS: regular rate, regular rhythm, S1 normal heart sound present and S2 normal heart sound present RATE: regular rate RHYTHM: regular rhythm HEART SOUNDS: S1 normal heart sound present and S2 normal heart sound present GI: COMMON NORMALS: Normal to inspection, nondistended, normoactive bowel sounds present, Soft to palpation, non-tender and No hepatosplenomegaly present PALPATION: Yes Soft to palpation and Yes No hepatosplenomegaly present Extremity: COMMON NORMALS: no pedal edema Neuro: COMMON NORMALS: patient oriented x3 Skin: NARRATIVE SKIN EXAM: Right forearm wrapped and bandaged Right groin, femoral line in place Urinary Catheter Management: Blue: Cath Placed During This Visit: yes, but has since been removed by the nurse Reason for Continuing Indwelling Catheter: Acute Urinary Retention or Obstruction Urinary Catheter Date of Insertion: 06/10/21 Urinary Catheter Time of Insertion: 16:10 Date Urinary Catheter Removed: 06/14/21 Time Urinary Catheter Discontinued: 11:50 Data : 06/17/21 04:08 06/17/21 04:08 Micro: Microbiology 06/11/21 19:10 Anaerobic Culture - Preliminary Arm - #1 A&P Assessment and plan (1) 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 Status: Acute (4) Hemodialysis catheter infection: Status: Acute Qualifiers: Encounter type: subsequent encounter Qualified Code(s): T82.7XXD - Infection and inflammatory reaction due to other cardiac and vascular devices, implants and grafts, subsequent encounter (5) Abscess of right forearm: Status: Acute (6) MRSA bacteremia: Status: Acute (7) Moderate mitral regurgitation: New finding. Most likely secondary to infective endocarditis. Given extensive mitral regurgitation patient will most likely need a mitral clipping versus mitral valve replacement going forward once infective endocarditis clears up or sooner if he continues to remain persistently bacteremic. Status: Acute (8) Hypoxia: Status: Acute (9) Diastolic heart failure: Status: Acute (10) Dialysis patient, noncompliant: Status: Acute (11) HTN (hypertension): Status: Acute (12) Cardiomegaly: Status: Acute (13) LVH (left ventricular hypertrophy): With history of hypertension. Not adherent with hemodialysis. I am not not certain that he is adherent with his medications at home. Continue HTN medicines. Aspirin, beta-lucas. Stress test when able. Unclear benefit of statin in setting of ESRD on dialysis. Status: Acute (14) Severe tricuspid regurgitation: Status: Acute (15) Ascites: Most likely from diastolic heart failure. Seems to be improving with regular dialysis. Check hepatitis panel, HIV. Status: Acute (16) Acute hyperkalemia: Resolved. On hemodialysis. Check daily BMP. 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 BALTAZAR results consistent with echogenic density seen on posterior mitral leaflet, posterior tricuspid valve measuring 1 to 0.5 cm in size suggestive of endocarditis. Post I&D of forearm abscess on 06/11. HD catheter removed 06/10 Right groin HD catheter in place, 128 Blood cultures from 06/09 also positive. Repeat blood cultures sent 06/11 so far negative For now continue with vancomycin. Repeat dose of vancomycin postdialysis today, 1 g Likely discharge on vancomycin 1 g after dialysis Continue to check vancomycin random level daily for now. Target levels 15-20. Dose vancomycin accordingly. Decolonization as per ID. Right forearm abscess: Post I&D with orthopedics on 06/11. Repeat CT scan of distal forearm Bones/joints: No bone destruction or fracture. Soft tissues: Since the recent prior study a slightly rim enhancing intramuscular fluid collection in the distal forearm near the radius has slightly decreased in size. Currently this fluid measures 1.6 x 1.3 x 3.5 cm and previously measured 3.5 x 1.6 x 3.7 cm. No gas in the fluid. Overlying cutaneous disruption is likely postoperative. No new abscess. Persisting generalized subcutaneous edema in the forearm and wrist. Currently wrapped and bandaged Continue gentle wound care Continue antibiotics Orthopedics on consult CKD: Appreciate nephrology recommendations. Plan for line holiday. Removal of HD catheter on 06/10. Case discussed again with nephrology. Plan now is for a possible tunneled HD catheter to be placed once blood cultures are cleared up as no contact made through with patient's outpatient dialysis or agricultural service technician and it might not be safe for patient to go out on peritoneal dialysis currently. Possible plan for HD catheter on Wednesday Monitor BMP daily. Hyperkalemia seems to be resolved. Hypoxia: Resolved. COVID-19 PCR negative.? Most likely secondary to congestive diastolic heart failure. Perfusion study low probability for PE. Hemodialysis with negative fluid balance. Continue with Lasix to 60 mg IV every 12 hourly. Monitor strict input output charting. Hypertension: Goal blood pressure less than 140/90 mmHg. Blood pressure better controlled. Continue with home dose of hydralazine, n ifedipine. Continue with Coreg 25 mg twice daily and clonidine 0.1 milligrams 3 times a day. Full code. Dialysis regular diet. Protonix for PUD prophylaxis. Heparin for DVT prophylaxis. Discharge planning: Will need 6 weeks of antibiotics. Plan for tunneled catheter placement once blood cultures remain negative. Plan for possible vancomycin post dialysis for next 6 weeks. Can plan to discharge home with tunneled catheter and IV antibiotics. Attestations Medical Necessity Statement*: Patient requires hospitalization for MRSA endocarditis Coding Level of Care Code Acute Outside Sales Professional for [facility] Fwd Diagnoses Endocarditis due to Staphylococcus I33.0; B95.8 Moderate to severe mitral regurgitation I34.0 Right forearm pain M79.631 Hemodialysis catheter infection T82.7XXD Encounter type: subsequent encounter Abscess of right forearm L02.413 MRSA bacteremia R78.81; B95.62 Moderate mitral regurgitation I34.0 Hypoxia R09.02 Diastolic heart failure I50.30 Dialysis patient, noncompliant Z91.15 HTN (hypertension) I10 Cardiomegaly I51.7 LVH (left ventricular hypertrophy) I51.7 Severe tricuspid regurgitation I07.1 Ascites R18.8 Acute hyperkalemia E87.5 Uremia N19
--- NOTE | 2021-06-17 16:38 | PC.NURSE ---
pulled patient's temp dialysis catheter. held pressure until bleeding stopped and covered with 4x4 and opsite.
--- NOTE | 2021-06-17 16:49 | PM.PN ---
Subjective Subjective: Interval history: Patient is doing well, no nausea or vomiting, received dialysis yesterday. Blood cultures have been negative so far Medications: Reviewed: Yes Vitals/I&O/Wt Last Vital Signs Temp 98.1 F 06/17/21 16:00 Pulse 84 06/17/21 16:00 Resp 16 06/17/21 16:00 BP 142/75 06/17/21 16:00 Pulse Ox 94 06/17/21 16:00 06/17/21 06/17/21 06/17/21 06:59 14:59 22:59 Intake Total 480 / 780 490 / 490 Balance 480 / -2520 490 / 490 Weight last 48 hrs Weight 208 lb 6.4 oz Weight 208 lb Weight 210 lb 5.136 oz Physical Exam Narrative: EXAM NARRATIVE: HEENT: Wound is well-healed Shiley catheter femoral vein Urinary Catheter Management: Blue: Cath Placed During This Visit: yes, but has since been removed by the nurse Reason for Continuing Indwelling Catheter: Acute Urinary Retention or Obstruction Urinary Catheter Date of Insertion: 06/10/21 Urinary Catheter Time of Insertion: 16:10 Date Urinary Catheter Removed: 06/14/21 Time Urinary Catheter Discontinued: 11:50 Data : 06/17/21 04:08 06/17/21 04:08 Micro: Microbiology 06/11/21 19:10 Anaerobic Culture - Preliminary Arm - #1 A&P Assessment and plan (1) ESRD (end stage renal disease) on dialysis: 35-year-old female status post post removal of tunneled hemodialysis catheter. He received dialysis yesterday. DC femoral temporary catheter today. N.p.o. after midnight Blood cultures have been negative so far Plan for placement of tunneled hemodialysis catheter under MAC tomorrow Procedure, risks, benefits and alternatives have been discussed with the patient who wishes to proceed with surgery. Status: Acute Attestations Medical Necessity Statement*: As per primary Coding Level of Care Code Acute Automatic Beam Warper Tender for [facility] Diagnoses ESRD (end stage renal disease) on dialysis N18.6; Z99.2
[2021-06-18] VITALS (13 sets, daily range): BP systolic 120–167; BP diastolic 69–92; PULSE 77–96; RESP 11–24; TEMP 36.1–37.8; O2SAT 90–96
--- NOTE | 2021-06-18 | SCC_ITS ---
Procedure done: 1. Placement of 31 cm long 16 [place]bourgish tunneled hemodialysis catheter in the left internal jugular vein 2. Fluoroscopic guidance and interpretation for placement of catheter 3. Ultrasound guidance and interpretation to access the left internal jugular vein 147.0 seconds of fluoroscopic guidance, for a cumulative dose of 14.16 mGy, was provided to Dr. Worthington by the radiology department. C-arm images of the chest were saved for the patient's permanent record. NIRAV
[2021-06-18 06:05] LABS: Basophils # 0.1 10^3/uL (0.0-0.1); Basophils % 0.7 %; Eosinophils # 0.4 10^3/uL (0.0-0.8); Eosinophils % 3.5 %; Hematocrit 26.1 % (42.0-52.0); Hemoglobin 7.9 g/dL (11.7-16.6); Lymphocytes # 1.3 10^3/uL (0.8-4.8); Lymphocytes % 11.4 %; Mean Corpuscular HGB Conc 30.3 g/dL (30.0-36.0); Mean Corpuscular Hemoglobin 26.8 pg (28.0-34.0); Mean Corpuscular Volume 88.5 fl (80-94); Mean Platelet Volume 9.8 fL (7.4-10.4); Monocytes # 1.1 10^3/uL (0.2-0.9); Monocytes % 9.8 %; Neutrophils # 8.33 10^3/uL (1.8-7.7); Neutrophils % 72.7 %; Nucleated Red Blood Cells % 0 %; Platelet Count 382 10^3/cmm (130-400); Red Blood Count 2.95 10^6/uL (4.1-5.3); Red Cell Distribution Width 20.4 % (12.1-15.1); White Blood Count 11.5 10^3/uL (4.0-10.0)
[2021-06-18 06:26] LABS: Alanine Aminotransferase < 5 U/L (0-41); Albumin Level 3.6 g/dL (3.5-5.2); Alkaline Phosphatase 108 IU/L (40-130); Anion Gap 19.6 (5-19); Aspartate Amino Transferase 14 U/L (0-40); Blood Urea Nitrogen 51 mg/dL (6-20); Calcium 8.7 mg/dL (8.5-10.5); Carbon Dioxide 23 mmol/L (22-29); Chloride 101 mmol/L (98-107); Globulin 2.7 g/dL (1.3-4.6); Glomerular Filtration Rate 7.1 mL/min (90-130); Glucose 84 mg/dL (65-115); Magnesium 1.9 mg/dL (1.7-2.3); Osmolality Calculated 301 mOsm/kg (285-295); Phosphorus 3.6 mg/dL (2.5-4.5); Potassium 4.6 mmol/L (3.5-5.1); Sodium 139 mmol/L (136-145); Total Bilirubin 0.3 mg/dL (0.15-1.2); Total Protein 6.3 g/dL (6.6-8.7)
[2021-06-18 06:47] LABS: Vancomycin Trough 20.7 ug/mL (10-15)
[2021-06-18] MEDS: minoxidil 10 mg Tablet 5 MG PO (08:21)
[2021-06-18] MEDS: hyDRALAzine 50 mg Tablet PO ×3 (08:21→20:18)
[2021-06-18] MEDS: ferrous gluconate 324 mg Tablet PO ×2 (08:21→16:55)
[2021-06-18] MEDS: cloNIDine 0.1 mg Tablet PO ×3 (08:21→20:17)
[2021-06-18] MEDS: sevelamer 800 mg Tablet 1600 MG PO ×3 (08:22→20:18)
[2021-06-18] MEDS: NIFEdipine ER (24 hr) 30 mg Tablet 90 MG PO (08:22)
[2021-06-18] MEDS: carvedilol 25 mg Tablet PO ×2 (08:22→20:18)
[2021-06-18] MEDS: FUROsemide 10 mg/mL SDV 10mL 60 MG IVP (08:23)
[2021-06-18] MEDS: heparin 5,000 unit/mL INJ 1 mL 5000 UNIT SUBCUT ×2 (08:23→20:18)
--- NOTE | 2021-06-18 09:29 | P.PN_ITS ---
Subjective Subjective: Interval history: feels well. had shiley removed. awaits permacath. no complaints Medications: Reviewed: Yes Medication Review Details: Current Medications Acetaminophen (Acetaminophen 325 Mg Tablet) 650 mg PO Q6H PRN PRN Reason: Mild/Mod Pain Or Temp >/= 101 Last Admin: 06/14/21 20:54 Dose: 650 mg Documented by: Carvedilol (Carvedilol 25 Mg Tablet) 25 mg PO BID@0900,2100 [facility] Last Admin: 06/18/21 08:22 Dose: 25 mg Documented by: Chlorhexidine Gluconate (Chlorhexidine Gluconate 4% Btl 118 Ml) 1 applic TOPICAL DAILY [facility] Stop: 06/19/21 08:59 Last Admin: 06/17/21 08:13 Dose: 1 applic Documented by: Clonidine HCl (Clonidine 0.1 Mg Tablet) 0.1 mg PO TID [facility] Last Admin: 06/18/21 08:21 Dose: 0.1 mg Documented by: Ferrous Gluconate (Ferrous Gluconate 324 Mg Tablet) 324 mg PO BIDWM [facility] Last Admin: 06/18/21 08:21 Dose: 324 mg Documented by: Furosemide (Furosemide 10 Mg/Ml Sdv 10ml) 60 mg IVP DAILY [facility] Last Admin: 06/18/21 08:23 Dose: 60 mg Documented by: Heparin Sodium (Porcine) (Heparin 5,000 Unit/Ml Inj 1 Ml) 5,000 unit SUBCUT Q12H [facility] Last Admin: 06/18/21 08:23 Dose: 5,000 unit Documented by: Hydralazine HCl (Hydralazine 50 Mg Tablet) 50 mg PO TID [facility] Last Admin: 06/18/21 08:21 Dose: 50 mg Documented by: Sodium Chloride (Sodium Chloride 0.9%) 1,000 mls @ 0 mls/hr IV .Q0M PRN PRN Reason: hypotension or symptomatic Epoetin Avila 6,000 unit/ N/A 0.3 mls @ 0 mls/hr IVP QMWF [facility] Last Admin: 06/16/21 16:33 Dose: Not Given Documented by: Vancomycin HCl 1,000 mg/ (Sodium Chloride) 250 mls @ 250 mls/hr IV DIALYSIS [facility]; Protocol Last Infusion: 06/17/21 13:43 Dose: Infused Documented by: Minoxidil (Minoxidil 10 Mg Tablet) 5 mg PO DAILY [facility] Last Admin: 06/18/21 08:21 Dose: 5 mg Documented by: Mupirocin (Mupirocin Oint 22 Gm) 1 applic NOSTRIL-B BID [facility] Stop: 06/19/21 08:59 Last Admin: 06/17/21 17:34 Dose: 1 applic Documented by: Nifedipine (Nifedipine Er (24 Hr) 30 Mg Tablet) 90 mg PO DAILY [facility] Last Admin: 06/18/21 08:22 Dose: 90 mg Documented by: Ondansetron HCl (Ondansetron 2 Mg/Ml Sdv 2 Ml) 4 mg IVP Q8H PRN PRN Reason: vomiting, or N/V if npo Last Admin: 06/14/21 04:14 Dose: 4 mg Documented by: Pantoprazole Sodium (Pantoprazole Dr 40 Mg Tablet) 40 mg PO DAILY [facility] Last Admin: 06/17/21 08:10 Dose: 40 mg Documented by: Sevelamer Carbonate (Sevelamer 800 Mg Tablet) 1,600 mg PO TID [facility] Last Admin: 06/18/21 08:22 Dose: 1,600 mg Documented by: Vitals/I&O/Wt Last Vital Signs Temp 98.9 F 06/18/21 08:00 Pulse 88 06/18/21 08:00 Resp 17 06/18/21 08:00 BP 134/78 06/18/21 08:21 Pulse Ox 96 06/18/21 08:00 06/17/21 06/18/21 06/18/21 22:59 06:59 14:59 Intake Total 100 / 830 Output Total 260 / 260 980 / 1240 Balance -160 / 570 -980 / -410 Weight last 48 hrs Weight 95.481 kg Weight 94.529 kg Weight 94.347 kg Weight 95.4 kg Physical Exam Narrative: EXAM NARRATIVE: sitting up,, NARD, VSS heent- nc/at, eomi, anicteric neck supple lung clear b/l heart reg, +XIMENA abd soft, nt, nd, + bs ext LLE BKA, trace RLE edema LUE AVF neuro- a,a, o x 3 Urinary Catheter Management: Blue: Cath Placed During This Visit: yes, but has since been removed by the nurse Reason for Continuing Indwelling Catheter: Acute Urinary Retention or Obstruction Urinary Catheter Date of Insertion: 06/10/21 Urinary Catheter Time of Insertion: 16:10 Date Urinary Catheter Removed: 06/14/21 Time Urinary Catheter Discontinued: 11:50 Data : 06/18/21 05:04 06/18/21 05:04 Micro: Microbiology 06/11/21 19:10 Anaerobic Culture - Preliminary Arm - #1 A&P Assessment and plan (1) ESRD (end stage renal disease) on dialysis: Seen via telehealth with assistance of RN at bedside 1. ESRD - for tunneled HD catheter -HD today or tomorrow 2. staph aureus bacteremia, wrist abscess, eendocarditis- - renal dose abx -keep vanco trough under 20 - can give vanco 500 mgm iv today or 1 gm in am -Per Dr. Yoder of cardiology- he has severe eccentric mitral regurgitation.? He may benefit from surgical intervention, once infection is appropriately treated.? Surgical consult would be appropriate. last cx + - 3. Anemia, Hb 7.9- epogen mwf -no iv iron w/ bacteremia 4. Hypertension- improved - remove fluids on hd. dec meds 5. hyperphosphatemia- improved w/ HD and binders discussed w/ pt seen and examined w/ RN- telehealth visit time spent 25 min Status: Acute Plan as above Attestations Medical Necessity Statement*: d/c once abx arranged and new dialysis catheter placed Time Spent in Patient Care: 16 - 35 minutes (>than 50% of time spent in counselling and/or direct pt care on unit) . Coding Level of Care Code Acute Cut Off Saw Set Up Operator for [facility] Sanchez Diagnoses ESRD (end stage renal disease) on dialysis N18.6; Z99.2
--- NOTE | 2021-06-18 09:52 | P.PN_ITS ---
Subjective Subjective: Interval history: No issues overnight Medications: Reviewed: Yes Vitals/I&O/Wt Last Vital Signs Temp 98.9 F 06/18/21 08:00 Pulse 88 06/18/21 08:00 Resp 17 06/18/21 08:00 BP 134/78 06/18/21 08:21 Pulse Ox 96 06/18/21 08:00 06/17/21 06/18/21 06/18/21 22:59 06:59 14:59 Intake Total 100 / 830 Output Total 260 / 1240 980 / 1240 Balance -160 / -410 -980 / -410 Weight last 48 hrs Weight 210 lb 8 oz Weight 208 lb 6.4 oz Weight 208 lb Weight 210 lb 5.136 oz Physical Exam Narrative: EXAM NARRATIVE: HEENT: Prior catheter site is healed Urinary Catheter Management: Blue: Cath Placed During This Visit: yes, but has since been removed by the nurse Reason for Continuing Indwelling Catheter: Acute Urinary Retention or Obstruction Urinary Catheter Date of Insertion: 06/10/21 Urinary Catheter Time of Insertion: 16:10 Date Urinary Catheter Removed: 06/14/21 Time Urinary Catheter Discontinued: 11:50 Data : 06/18/21 05:04 06/18/21 05:04 Micro: Microbiology 06/11/21 19:10 Anaerobic Culture - Preliminary Arm - #1 A&P Assessment and plan (1) ESRD (end stage renal disease) on dialysis: 35-year-old male status post post removal of tunneled hemodialysis catheter. N.p.o. after midnight Blood cultures have been negative so far Plan for placement of tunneled hemodialysis catheter under MAC Procedure, risks, benefits and alternatives have been discussed with the patient who wishes to proceed with surgery. Status: Acute Attestations Medical Necessity Statement*: As per primary Coding Level of Care Code Acute Watch Inspector for [facility] Fwd Diagnoses ESRD (end stage renal disease) on dialysis N18.6; Z99.2
--- NOTE | 2021-06-18 10:35 | PC.NURSE ---
Rcvd call from Ead in pharmacy stating to hold Vancomycin and do not administer until after patient had dialysis.
[2021-06-18] MEDS: pantoprazole DR 40 mg Tablet PO (10:43)
[2021-06-18] MEDS: chlorhexidine gluconate 4% Btl 118 mL 1 APPLIC TOPICAL (10:45)
[2021-06-18] MEDS: mupirocin oint 22 gm 1 APPLIC NOSTRIL-B ×2 (10:46→18:38)
[2021-06-18] MEDS: sodium chloride 0.9% 1,000 ML 30 ML IV (12:31)
--- NOTE | 2021-06-18 12:33 | ANES.PREANE2 ---
Pre-Anesthetic Assessment Height/Weight: Height 1.85 m Weight 95.481 kg Temp Pulse Resp BP Pulse Ox 97.6 F 77 16 144/88 95 06/18/21 12:08 06/18/21 12:08 06/18/21 12:08 06/18/21 12:08 06/18/21 12:08 Preop Diagnosis: crf Operation Date: 06/10/21 17:25 Proposed Procedures p Dialysis Catheter Removal Hemodialysis Catheter Removal(Not Applicable) - Pablito Sams MD Operation Date: 06/11/21 17:55 Proposed Procedures p Irrigation debridement right forearm(Right) - Jasbir Coelho DO Operation Date: 06/13/21 07:00 Proposed Procedures p Femoral dialysis catheter insertion(Not Applicable) - Pablito Sams MD Operation Date: 06/16/21 20:00 Proposed Procedures p Laparoscopic Peritoneal Cath Insertion(Not Applicable) - Luis Worthington MD Operation Date: 06/17/21 12:30 Proposed Procedures p Exploratory Laparotomy(Not Applicable) - Luis Worthington MD Operation Date: 06/18/21 13:10 Proposed Procedures p Dialysis Catheter Insertion(Not Applicable) - Luis Worthington MD Familial anesthetic complications: none Last intake: Intake Last Liquid Date 06/18/21 Last Liquid Time 00:00 Last Solid Date 06/17/21 Last Solid Time 20:00 Social No alcohol and No tobacco Exam alert, oriented x 3, clear to auscultation bilaterally and regular rate & rhythm Airway Mallampati: Class II Dentition: chipped CV/HEM Deep Vein Thrombosis Severe Mitral regurge chronic renal failure GI Gastroesophageal Reflux Disease Anesthetic Plan ASA status: 4 Anesthesia: MAC Medications/Allergies Home Medications Medication Instructions Recorded Confirmed Last Taken Type furosemide 80 mg tablet 80 mg PO BID 04/09/21 06/07/21 Unknown History hydralazine 100 mg tablet 100 mg PO TID 04/09/21 06/07/21 Unknown History minoxidil 10 mg tablet 5 mg PO DAILY 04/09/21 06/07/21 Unknown History pantoprazole 40 mg tablet,delayed 40 mg PO DAILY 04/09/21 06/07/21 Unknown History release vit B,C-folic ac 800 mcg-zinc 12.5 1 tab PO DAILY 04/09/21 06/07/21 Unknown History mg-selen-D3 2,000 unit-vit E tablet (RenaPlex-D) carvedilol 25 mg tablet 25 mg PO BID 06/07/21 06/07/21 Unknown History lactulose 10 gram/15 mL oral 30 ml PO DAILY PRN 06/07/21 06/07/21 Unknown History solution (Generlac) nifedipine 90 mg tablet,extended 90 mg PO DAILY 06/07/21 06/07/21 Unknown History release Allergies Allergy/AdvReac Type Severity Reaction Status Date / Time strawberry Allergy Mild ALGY-Rash Unverified 06/07/21 16:24 Current Medications Generic Name Dose Route Start Last Admin Trade Name Bess PRN Reason Stop Dose Admin Acetaminophen 650 mg 06/07/21 16:38 06/14/21 20:54 Acetaminophen 325 Mg Tablet PO 650 mg Q6H PRN Administration Mild/Mod Pain Or Temp >/= 101 Carvedilol 25 mg 06/10/21 21:00 06/18/21 08:22 Carvedilol 25 Mg Tablet PO 25 mg BID@0900,2100 VAS[facility]I Administration Chlorhexidine Gluconate 1 applic 06/14/21 09:00 06/18/21 10:45 Chlorhexidine Gluconate 4% Btl 118 Ml TOPICAL 06/19/21 08:59 1 applic DAILY [facility]AS[facility] Administration Clonidine HCl 0.1 mg 06/16/21 15:00 06/18/21 08:21 Clonidine 0.1 Mg Tablet PO 0.1 mg TID VASHTI Administration Ferrous Gluconate 324 mg 06/10/21 18:00 06/18/21 08:21 Ferrous Gluconate 324 Mg Tablet PO 324 mg BIDWM VASHTI Administration Furosemide 60 mg 06/18/21 09:00 06/18/21 08:23 Furosemide 10 Mg/Ml Sdv 10ml IVP 60 mg DAILY [facility] Administration Heparin Sodium (Porcine) 5,000 unit 06/08/21 20:00 06/18/21 08:23 Heparin 5,000 Unit/Ml Inj 1 Ml SUBCUT 5,000 unit Q12H [facility] Administration Hydralazine HCl 50 mg 06/16/21 15:00 06/18/21 08:21 Hydralazine 50 Mg Tablet PO 50 mg TID VASHTI Administration Vancomycin HCl 1,000 mg/ 250 mls @ 250 mls/hr 06/17/21 10:30 06/18/21 10:37 Sodium Chloride IV Not Given DIALYSIS [facility] Protocol Minoxidil 5 mg 06/07/21 21:00 06/18/21 08:21 Minoxidil 10 Mg Tablet PO 5 mg DAILY [facility] Administration Mupirocin 1 applic 06/14/21 09:00 06/18/21 10:46 Mupirocin Oint 22 Gm NOSTRIL-B 06/19/21 08:59 1 applic BID [facility]ASHTI Administration Nifedipine 90 mg 06/08/21 09:00 06/18/21 08:22 Nifedipine Er (24 Hr) 30 Mg Tablet PO 90 mg DAILY [facility] Administration Ondansetron HCl 4 mg 06/07/21 16:38 06/14/21 04:14 Ondansetron 2 Mg/Ml Sdv 2 Ml IVP 4 mg Q8H PRN Administration vomiting, or N/V if npo Pantoprazole Sodium 40 mg 06/08/21 09:00 06/18/21 10:[address] 40 Mg Tablet PO 40 mg DAILY [facility] Administration Sevelamer Carbonate 1,600 mg 06/12/21 09:00 06/18/21 08:22 Sevelamer 800 Mg Tablet PO 1,600 mg TID [facility]ASHTI Administration Additional Medication Information Current Medications Acetaminophen (Acetaminophen 325 Mg Tablet) 650 mg PO Q6H PRN PRN Reason: Mild/Mod Pain Or Temp >/= 101 Last Admin: 06/14/21 20:54 Dose: 650 mg Documented by: Carvedilol (Carvedilol 25 Mg Tablet) 25 mg PO BID@0900,2100 [facility] Last Admin: 06/18/21 08:22 Dose: 25 mg Documented by: Chlorhexidine Gluconate (Chlorhexidine Gluconate 4% Btl 118 Ml) 1 applic TOPICAL DAILY [facility] Stop: 06/19/21 08:59 Last Admin: 06/17/21 08:13 Dose: 1 applic Documented by: Clonidine HCl (Clonidine 0.1 Mg Tablet) 0.1 mg PO TID [facility] Last Admin: 06/18/21 08:21 Dose: 0.1 mg Documented by: Ferrous Gluconate (Ferrous Gluconate 324 Mg Tablet) 324 mg PO BIDWM [facility] Last Admin: 06/18/21 08:21 Dose: 324 mg Documented by: Furosemide (Furosemide 10 Mg/Ml Sdv 10ml) 60 mg IVP DAILY [facility] Last Admin: 06/18/21 08:23 Dose: 60 mg Documented by: Heparin Sodium (Porcine) (Heparin 5,000 Unit/Ml Inj 1 Ml) 5,000 unit SUBCUT Q12H [facility] Last Admin: 06/18/21 08:23 Dose: 5,000 unit Documented by: Hydralazine HCl (Hydralazine 50 Mg Tablet) 50 mg PO TID [facility] Last Admin: 06/18/21 08:21 Dose: 50 mg Documented by: Sodium Chloride (Sodium Chloride 0.9%) 1,000 mls @ 0 mls/hr IV .Q0M PRN PRN Reason: hypotension or symptomatic Epoetin Avila 6,000 unit/ N/A 0.3 mls @ 0 mls/hr IVP QMWF [facility] Last Admin: 06/16/21 16:33 Dose: Not Given Documented by: Vancomycin HCl 1,000 mg/ (Sodium Chloride) 250 mls @ 250 mls/hr IV DIALYSIS [facility]; Protocol Last Infusion: 06/17/21 13:43 Dose: Infused Documented by: Minoxidil (Minoxidil 10 Mg Tablet) 5 mg PO DAILY [facility] Last Admin: 06/18/21 08:21 Dose: 5 mg Documented by: Mupirocin (Mupirocin Oint 22 Gm) 1 applic NOSTRIL-B BID [facility] Stop: 06/19/21 08:59 Last Admin: 06/17/21 17:34 Dose: 1 applic Documented by: Nifedipine (Nifedipine Er (24 Hr) 30 Mg Tablet) 90 mg PO DAILY [facility] Last Admin: 06/18/21 08:22 Dose: 90 mg Documented by: Ondansetron HCl (Ondansetron 2 Mg/Ml Sdv 2 Ml) 4 mg IVP Q8H PRN PRN Reason: vomiting, or N/V if npo Last Admin: 06/14/21 04:14 Dose: 4 mg Documented by: Pantoprazole Sodium (Pantoprazole Dr 40 Mg Tablet) 40 mg PO DAILY [facility] Last Admin: 06/17/21 08:10 Dose: 40 mg Documented by: Sevelamer Carbonate (Sevelamer 800 Mg Tablet) 1,600 mg PO TID [facility] Last Admin: 06/18/21 08:22 Dose: 1,600 mg Documented by: [facility] Anesthesia Medical History Alport syndrome Dialysis AV fistula malfunction Diastolic heart failure Hemodialysis catheter infection HTN (hypertension) MRSA bacteremia Surgical History Fistula Left forearm S/P hemodialysis catheter insertion Multiple Status post dialysis Family History Other ESRD (end stage renal disease) Social History Smoking and tobacco status: never smoked Alcohol intake: never Substance/Drug Use: former Other details last substance use: Marijuana. Denies any other. Denies IVDU. Lives independently: Yes Household members: spouse Marital status: Current occupational status: unemployed Data Anesthesia : 06/18/21 05:04 06/18/21 05:04 Short CBC 06/17/21 06/18/21 Range/Units 04:08 05:04 WBC 10.3 H 11.5 H (4.0-10.0) 10^3/uL Hgb 8.3 L 7.9 L (11.7-16.6) g/dL Hct 26.7 L 26.1 L (42.0-52.0) % MCV 87.8 88.5 (80-94) fl Plt Count 391 382 (130-400) 10^3/cmm Neut % (Auto) 71.9 72.7 % Neut # (Auto) 7.40 8.33 H (1.8-7.7) 10^3/uL BMP 06/17/21 06/18/21 04:08 05:04 Sodium 136 139 Potassium 4.8 4.6 Chloride 102 101 Carbon Dioxide 23 23 BUN 44 H 51 H Creatinine 6.8 H* 8.6 H* Glucose 91 84 Calcium 8.6 8.7 Liver Function 06/17/21 06/18/21 Range/Units 04:08 05:04 Total Bilirubin 0.3 0.3 (0.15-1.2) mg/dL AST 17 14 (0-40) U/L ALT < 5 < 5 (0-41) U/L Alkaline Phosphatase 102 108 (40-130) IU/L Albumin 3.5 3.6 (3.5-5.2) g/dL Microbiology 06/11/21 19:10 Anaerobic Culture - Preliminary Arm - #1 Cardiac Studies: Echocardiogram 06/08/21 Transesophageal Echocardiogram 06/09/21
--- NOTE | 2021-06-18 12:42 | SC_ITS ---
WS: [id number] C-arm [place] for CVA [id number] REASON FOR EXAM: dialysis cath FINDINGS: Single image demonstrates the distal end of a dialysis catheter extending through the right atrium to the inferior vena cava. SC/C-arm FL for CVA [id number] IMPRESSION: Dialysis catheter position as above.
[2021-06-18] MEDS: lidocaine 1% INJ 20 mL INJECTION (13:38)
[2021-06-18] MEDS: heparin, porcine 1,000 unit/mL INJ 10 mL 10000 UNIT IRRIGATION (14:00)
--- NOTE | 2021-06-18 14:13 | PM.OP ---
Operative Report Date of procedure: June 18, 2021 Pre-op diagnosis: ESRD on dialysis Post-op diagnosis: Occluded right internal jugular vein Patent left jugular vein Procedure done: 1. Placement of 31 cm long 16 Icelandic tunneled hemodialysis catheter in the left internal jugular vein 2. Fluoroscopic guidance and interpretation for placement of catheter 3. Ultrasound guidance and interpretation to access the left internal jugular vein Pathology: none sent Surgeon: Luis Worthington Anesthesia: MAC Estimated blood loss (mL): 25 Condition: stable Disposition: PACU Procedure: The patient was taken to the operating room and placed under MAC, he is already on therapeutic IV antibiotics. The chest and neck were prepped and draped in a sterile manner bilaterally. An ultrasound of the right internal jugular vein revealed patent flow, no thrombus identified. Using introducer needle the internal jugular vein on the right side was accessed and guidewire passed but could not be advanced. Multiple attempts were made which were all unsuccessful. I therefore decided to attempt the left internal jugular vein. Ultrasound of the left internal jugular vein showed no evidence of thrombus. The introducer needle was used to access the left internal jugular vein and a guidewire was passed into the right atrium under fluoroscopy and the introducer needle was removed. Under fluoroscopy the location for the dialysis catheter was marked. Using 11 blade a skin incision was extended at the vein access site as well as the previously marked location on the left chest wall. The dialysis catheter was attached to the tunneler and passed subcutaneously, exiting at the venous access site. Serial dilators were passed over the guidewire under fluoroscopy. Finally the dilator peel-away sheath was passed over the guidewire and the inner dilator and guidewire was removed and the dialysis catheter was introduced into the right internal jugular vein as the peel-away sheath was removed. The tip of the catheter was noted to be in the right atrium. Both ports of the catheter sophy blood and flushed easily. The catheter was sutured to the skin using 2-0 Prolene and the venous access site was closed with 4-0 Monocryl and Dermabond. A total of 5 mL of 1:10,000 heparin was injected into the 2 ports of the dialysis catheter. Fluoroscopic guidance and interpretation for passage of guidewire and dilator and placement of catheter in the right atrium.
--- NOTE | 2021-06-18 14:47 | PC.NURSE ---
patient arrived on unit from PACU
--- NOTE | 2021-06-18 15:34 | PC.NURSE ---
Yulissa with Dialysis said she is going to do patient's dialysis tomorrow.
[2021-06-18] MEDS: acetaminophen 325 mg Tablet 650 MG PO (17:02)
--- NOTE | 2021-06-18 17:32 | P.PN_ITS ---
Subjective Subjective: Interval history: Patient was seen this morning, sitting at the side of bed, no events overnight, no fevers, no chills, no nausea, no vomiting Vitals/I&O/Wt Last Vital Signs Temp 98.6 F 06/18/21 16:00 Pulse 83 06/18/21 16:00 Resp 17 06/18/21 16:00 BP 136/92 06/18/21 16:56 Pulse Ox 96 06/18/21 16:00 06/18/21 06/18/21 06/18/21 06:59 14:59 22:59 Intake Total 0 / 0 Output Total 980 / 1240 400 / 420 Balance -980 / -410 -20 / -20 -400 / -420 Weight last 48 hrs Weight 95.481 kg Weight 94.529 kg Weight 94.347 kg Physical Exam Const: COMMON NORMALS: no acute distress and patient oriented x3 Resp: COMMON NORMALS: normal respiratory effort, No retractions, No use of accessory muscles and clear to auscultation bilaterally AUSCULTATION: clear to auscultation bilaterally Cardio: COMMON NORMALS: regular rate, regular rhythm, S1 normal heart sound present and S2 normal heart sound present RATE: regular rate RHYTHM: regular rhythm HEART SOUNDS: S1 normal heart sound present and S2 normal heart sound present GI: COMMON NORMALS: Normal to inspection, nondistended, normoactive bowel sounds present, Soft to palpation, non-tender and No hepatosplenomegaly present PALPATION: Yes Soft to palpation and Yes No hepatosplenomegaly present Extremity: COMMON NORMALS: no pedal edema Neuro: COMMON NORMALS: patient oriented x3 Psych: COMMON NORMALS: mental status grossly normal Urinary Catheter Management: Blue: Cath Placed During This Visit: yes, but has since been removed by the nurse Reason for Continuing Indwelling Catheter: Acute Urinary Retention or Obstruction Urinary Catheter Date of Insertion: 06/10/21 Urinary Catheter Time of Insertion: 16:10 Date Urinary Catheter Removed: 06/14/21 Time Urinary Catheter Discontinued: 11:50 Data : 06/18/21 05:04 06/18/21 05:04 Micro: Microbiology 06/11/21 19:10 Anaerobic Culture - Preliminary Arm - #1 A&P Assessment and plan (1) 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 Status: Acute (4) Hemodialysis catheter infection: Status: Acute Qualifiers: Encounter type: subsequent encounter Qualified Code(s): T82.7XXD - Infection and inflammatory reaction due to other cardiac and vascular devices, implants and grafts, subsequent encounter (5) Abscess of right forearm: Status: Acute (6) MRSA bacteremia: Status: Acute (7) Moderate mitral regurgitation: New finding. Most likely secondary to infective endocarditis. Given extensive mitral regurgitation patient will most likely need a mitral clipping versus mitral valve replacement going forward once infective endocarditis clears up or sooner if he continues to remain persistently bacteremic. Status: Acute (8) Hypoxia: Status: Acute (9) Diastolic heart failure: Status: Acute (10) Dialysis patient, noncompliant: Status: Acute (11) HTN (hypertension): Status: Acute (12) Cardiomegaly: Status: Acute (13) LVH (left ventricular hypertrophy): With history of hypertension. Not adherent with hemodialysis. I am not not cer tain that he is adherent with his medications at home. Continue HTN medicines. Aspirin, beta-lucas. Stress test when able. Unclear benefit of statin in setting of ESRD on dialysis. Status: Acute (14) Severe tricuspid regurgitation: Status: Acute (15) Ascites: Most likely from diastolic heart failure. Seems to be improving with regular dialysis. Check hepatitis panel, HIV. Status: Acute (16) Acute hyperkalemia: Resolved. On hemodialysis. Check daily BMP. 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 BALTAZAR results consistent with echogenic density seen on posterior mitral leaflet, posterior tricuspid valve measuring 1 to 0.5 cm in size suggestive of endocarditis. Post I&D of forearm abscess on 06/11. HD catheter removed 06/10 Right groin HD catheter in place, 128 Blood cultures from 06/09 also positive. Repeat blood cultures sent 06/11 so far negative For now continue with vancomycin. Repeat dose of vancomycin postdialysis today 1 g Likely discharge on vancomycin 1 g after dialysis Continue to check vancomycin random level daily for now. Target levels 15-20. Dose vancomycin accordingly. Decolonization as per ID. Will have dialysis catheter placed today, likely receive 1 vancomycin dose after dialysis tomorrow, discharge tomorrow Right forearm abscess: Post I&D with orthopedics on 06/11. Repeat CT scan of distal forearm Bones/joints: No bone destruction or fracture. Soft tissues: Since the recent prior study a slightly rim enhancing intramuscular fluid collection in the distal forearm near the radius has slightly decreased in size. Currently this fluid measures 1.6 x 1.3 x 3.5 cm and previously measured 3.5 x 1.6 x 3.7 cm. No gas in the fluid. Overlying cutaneous disruption is likely postoperative. No new abscess. Persisting generalized subcutaneous edema in the forearm and wrist. Currently wrapped and bandaged Continue gentle wound care Continue antibiotics Orthopedics on consult CKD: Appreciate nephrology recommendations. Plan for line holiday. Removal of HD catheter on 06/10. Case discussed again with nephrology. Plan now is for a possible tunneled HD catheter to be placed once blood cultures are cleared up as no contact made through with patient's outpatient dialysis or fly worker and it might not be safe for patient to go out on peritoneal dialysis currently. Possible plan for HD catheter today Monitor BMP daily. Hyperkalemia seems to be resolved. Hypoxia: Resolved. COVID-19 PCR negative.? Most likely secondary to congestive diastolic heart failure. Perfusion study low probability for PE. Hemodialysis with negative fluid balance. Continue with Lasix to 60 mg IV every 12 hourly. Monitor strict input output charting. Hypertension: Goal blood pressure less than 140/90 mmHg. Blood pressure better controlled. Continue with home dose of hydralazine, nifedipine. Continue with Coreg 25 mg twice daily and clonidine 0.1 milligrams 3 times a day. Full code. Dialysis regular diet. Protonix for PUD prophylaxis. Heparin for DVT prophylaxis. Discharge planning: Will need 6 weeks of antibiotics. Plan for tunneled catheter placement once blood cultures remain negative. Plan for possible vancomycin post dialysis for next 6 weeks. Can plan to discharge home with tunneled catheter and IV antibiotics. Attestations Medical Necessity Statement*: Patient requires hospitalization for bacteremia, endocarditis, requiring antibiotic, requiring dialysis catheter placement Coding Level of Care Code Acute [employer] for [facility] Fwd Diagnoses Endocarditis due to Staphylococcus I33.0; B95.8 Moderate to severe mitral regurgitation I34.0 Right forearm pain M79.631 Hemodialysis catheter infection T82.7XXD Encounter type: subsequent encounter Abscess of right forearm L02.413 MRSA bacteremia R78.81; B95.62 Moderate mitral regurgitation I34.0 Hypoxia R09.02 Diastolic heart failure I50.30 Dialysis patient, noncompliant Z91.15 HTN (hypertension) I10 Cardiomegaly I51.7 LVH (left ventricular hypertrophy) I51.7 Severe tricuspid regurgitation I07.1 Ascites R18.8 Acute hyperkalemia E87.5 Uremia N19
--- NOTE | 2021-06-18 18:10 | PM.PN ---
Subjective Subjective: Interval history: Infectious disease progress note: s/p placement of tunneled HD cath, tolerated well Has had some recurrence of R arm swelling which was reevaluted by ortho No new complaints Blood cx negative since 06/11 Medications: Reviewed: Yes Medication Review Details: Current Medications Acetaminophen (Acetaminophen 325 Mg Tablet) 650 mg PO Q6H PRN PRN Reason: Mild/Mod Pain Or Temp >/= 101 Last Admin: 06/08/21 19:51 Dose: 650 mg Documented by: Carvedilol (Carvedilol 25 Mg Tablet) 25 mg PO BID@0900,2100 ON LICENSE OF [facility] Clonidine HCl (Clonidine 0.1 Mg/24 Hr Patch) 1 patch TRANSDERMA Q7D ON LICENSE OF [facility] Last Admin: 06/10/21 11:44 Dose: 1 patch Documented by: Ferrous Gluconate (Ferrous Gluconate 324 Mg Tablet) 324 mg PO BIDWM ON LICENSE OF [facility] Last Admin: 06/10/21 17:37 Dose: 324 mg Documented by: Furosemide (Furosemide 10 Mg/Ml Sdv 10ml) 60 mg IVP Q12H ON LICENSE OF [facility] Last Admin: 06/10/21 11:44 Dose: 60 mg Documented by: Heparin Sodium (Porcine) (Heparin 5,000 Unit/Ml Inj 1 Ml) 5,000 unit SUBCUT Q12H ON LICENSE OF [facility] Last Admin: 06/10/21 08:30 Dose: 5,000 unit Documented by: Heparin Sodium (Porcine) (Heparin, Porcine 1,000 Unit/Ml Inj 10 Ml) 10,000 unit HE ONCE PRN PRN Reason: Dialysis Hydralazine HCl (Hydralazine 50 Mg Tablet) 100 mg PO TID ON LICENSE OF [facility] Last Admin: 06/10/21 14:37 Dose: 100 mg Documented by: Sodium Chloride (Sodium Chloride 0.9%) 1,000 mls @ 0 mls/hr IV .Q0M PRN PRN Reason: hypotension or symptomatic Piperacillin Sod/Tazobactam (Sod 3.375 gm/ Sodium Chloride) 50 mls @ 12.5 mls/hr IV Q12H ON LICENSE OF [facility]; Protocol Last Admin: 06/10/21 14:40 Dose: 12.5 mls/hr Documented by: Vancomycin HCl 1,000 mg/ (Sodium Chloride) 250 mls @ 250 mls/hr IV Q48H ON LICENSE OF [facility] Last Infusion: 06/10/21 06:20 Dose: Infused Documented by: Epoetin Avila 5,000 unit/ N/A 0.25 mls @ 0 mls/hr IVP QMWF ON LICENSE OF [facility] Minoxidil (Minoxidil 10 Mg Tablet) 5 mg PO DAILY ON LICENSE OF [facility] Last Admin: 06/10/21 08:28 Dose: 5 mg Documented by: Nifedipine (Nifedipine Er (24 Hr) 30 Mg Tablet) 90 mg PO DAILY ON LICENSE OF [facility] Last Admin: 06/10/21 08:30 Dose: 90 mg Documented by: Ondansetron HCl (Ondansetron 2 Mg/Ml Sdv 2 Ml) 4 mg IVP Q8H PRN PRN Reason: vomiting, or N/V if npo Last Admin: 06/08/21 20:32 Dose: 4 mg Documented by: Oxycodone/Acetaminophen (Oxycodone-Apap 5-325 Mg Tablet) 1 tab PO Q6H PRN PRN Reason: MODERATE PAIN Pantoprazole Sodium (Pantoprazole Dr 40 Mg Tablet) 40 mg PO DAILY ON LICENSE OF [facility] Last Admin: 06/10/21 08:30 Dose: 40 mg Documented by: Vitals/I&O/Wt Last Vital Signs Temp 98.6 F 06/18/21 16:00 Pulse 83 06/18/21 16:00 Resp 17 06/18/21 16:00 BP 136/92 06/18/21 16:56 Pulse Ox 96 06/18/21 16:00 06/18/21 06/18/21 06/18/21 06:59 14:59 22:59 Intake Total 0 / 0 Output Total 980 / 1240 400 / 420 Balance -980 / -410 -20 / -20 -400 / -420 Weight last 48 hrs Weight 95.481 kg Weight 94.529 kg Weight 94.347 kg Physical Exam Narrative: EXAM NARRATIVE: GEN: Awake, alert and oriented, no acute distress CVS: S1S2 N RS: CTA B/L Abd: Soft, nt/nd , bs+ Neuro: no focal deficits Urinary Catheter Management: Blue: Cath Placed During This Visit: yes, but has since been removed by the nurse Reason for Continuing Indwelling Catheter: Acute Urinary Retention or Obstruction Urinary Catheter Date of Insertion: 06/10/21 Urinary Catheter Time of Insertion: 16:10 Date Urinary Catheter Removed: 06/14/21 Time Urinary Catheter Discontinued: 11:50 Data : 06/19/21 04:10 02/03/22 04:10 Micro: Microbiology 06/11/21 19:10 Anaerobic Culture - Preliminary Arm - #1 A&P Assessment and plan (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 #Positive blood cultures 06/07, 06/09. Thus far negative from 06/11 and 06/14. Continue vancomycin, with target trough of 15-20. Recent BSI with MRSA 6 months ago, unclear if endocarditis also diagnosed at that time. BALTAZAR currently with echogenic lesions on the anterior mitral annulus, posterior mitral leaflet and posterior tricuspid valve measuring between 1 to 0.5 cm in size suggestive of endocarditis. Features of severe MR with a regurgitant fraction of 69%. Moderately severe tricuspid regurgitation. And a possible small patent ramos ovale. Other potential source vs secondary seeding at right forearm abscess, s/p I&D on 06/11. Tunneled HD cath removed 06/10, replaced 06/18 recommend to continue IV vancomycin for at least 6 weeks course from clearance of blood culture (06/11-07/23)- vancomycin can be administered post HD on dialysis days as outpatient with goal trough of 15-20. Thereafter we will follow patient in infectious disease clinic and likely switch to oral antibiotics suppression until valvular surgery can be performed given recurrence of bacteremia. Thank you for this consult, please call with any further questions or concerns Attestations Medical Necessity Statement*: per admitting Coding Level of Care Code Acute Payable Representative for [facility] Fwd Diagnoses Endocarditis due to Staphylococcus I33.0; B95.8 Moderate to severe mitral regurgitation I34.0 Right forearm pain M79.631 Hemodialysis catheter infection T82.7XXD Encounter type: subsequent encounter Abscess of right forearm L02.413
[2021-06-19 02:00] VITALS: BP 150/87; PULSE 94; RESP 20; TEMP 36.7; O2SAT 98
[2021-06-19 04:00] VITALS: BP 144/87; PULSE 89; RESP 20; TEMP 36.7; O2SAT 93
[2021-06-19 04:26] LABS: Basophils # 0.1 10^3/uL (0.0-0.1); Basophils % 0.8 %; Eosinophils # 0.3 10^3/uL (0.0-0.8); Eosinophils % 2.2 %; Hemoglobin 7.6 g/dL (11.7-16.6); Lymphocytes # 1.2 10^3/uL (0.8-4.8); Lymphocytes % 9.3 %; Mean Corpuscular HGB Conc 30.4 g/dL (30.0-36.0); Mean Platelet Volume 9.7 fL (7.4-10.4); Monocytes # 0.9 10^3/uL (0.2-0.9); Neutrophils # 10.23 10^3/uL (1.8-7.7); Neutrophils % 79.5 %; Nucleated Red Blood Cells % 0 %; Platelet Count 369 10^3/cmm (130-400); Red Blood Count 2.81 10^6/uL (4.1-5.3); Red Cell Distribution Width 20.4 % (12.1-15.1); White Blood Count 12.9 10^3/uL (4.0-10.0)
[2021-06-19 04:50] LABS: Vancomycin Trough 18.4 ug/mL (10-15)
[2021-06-19 04:55] LABS: Alanine Aminotransferase < 5 U/L (0-41); Albumin Level 3.4 g/dL (3.5-5.2); Alkaline Phosphatase 102 IU/L (40-130); Anion Gap 22.3 (5-19); Aspartate Amino Transferase 12 U/L (0-40); Blood Urea Nitrogen 57 mg/dL (6-20); Calcium 9.4 mg/dL (8.5-10.5); Carbon Dioxide 19 mmol/L (22-29); Chloride 100 mmol/L (98-107); Globulin 3.1 g/dL (1.3-4.6); Glomerular Filtration Rate 6.4 mL/min (90-130); Glucose 90 mg/dL (65-115); Magnesium 2.1 mg/dL (1.7-2.3); Osmolality Calculated 297 mOsm/kg (285-295); Phosphorus 4.2 mg/dL (2.5-4.5); Potassium 5.3 mmol/L (3.5-5.1); Sodium 136 mmol/L (136-145); Total Bilirubin 0.4 mg/dL (0.15-1.2); Total Protein 6.5 g/dL (6.6-8.7)
[2021-06-19 08:55] VITALS: BP 152/99; PULSE 92; RESP 18; TEMP 36.4
--- NOTE | 2021-06-19 09:33 | P.PN_ITS ---
Subjective Subjective: Interval history: seen on dialysis- feels well. no n/v/f/c/dunaway/d Medications: Reviewed: Yes Medication Review Details: Current Medications Acetaminophen (Acetaminophen 325 Mg Tablet) 650 mg PO Q6H PRN PRN Reason: Mild/Mod Pain Or Temp >/= 101 Last Admin: 06/18/21 17:02 Dose: 650 mg Documented by: Carvedilol (Carvedilol 25 Mg Tablet) 25 mg PO BID@0900,2100 [facility] Last Admin: 06/18/21 20:18 Dose: 25 mg Documented by: Clonidine HCl (Clonidine 0.1 Mg Tablet) 0.1 mg PO TID [facility] Last Admin: 06/18/21 20:17 Dose: 0.1 mg Documented by: Ferrous Gluconate (Ferrous Gluconate 324 Mg Tablet) 324 mg PO BIDWM [facility] Last Admin: 06/18/21 16:55 Dose: 324 mg Documented by: Furosemide (Furosemide 10 Mg/Ml Sdv 10ml) 60 mg IVP DAILY [facility] Last Admin: 06/18/21 08:23 Dose: 60 mg Documented by: Heparin Sodium (Porcine) (Heparin 5,000 Unit/Ml Inj 1 Ml) 5,000 unit SUBCUT Q12H [facility] Last Admin: 06/18/21 20:18 Dose: 5,000 unit Documented by: Hydralazine HCl (Hydralazine 50 Mg Tablet) 50 mg PO TID [facility] Last Admin: 06/18/21 20:18 Dose: 50 mg Documented by: Sodium Chloride (Sodium Chloride 0.9%) 1,000 mls @ 0 mls/hr IV .Q0M PRN PRN Reason: hypotension or symptomatic Vancomycin HCl 1,000 mg/ (Sodium Chloride) 250 mls @ 250 mls/hr IV DIALYSIS [facility]; Protocol Last Admin: 06/18/21 10:37 Dose: Not Given Documented by: Epoetin Avila 10,000 unit/ N/A 0.5 mls @ 0 mls/hr IVP QMWF [facility] Sodium Chloride (Sodium Chloride 0.9%) 1,000 mls @ 30 mls/hr IV .Q24H [facility] Last Admin: 06/18/21 12:31 Dose: 30 mls/hr Documented by: Minoxidil (Minoxidil 10 Mg Tablet) 5 mg PO DAILY [facility] Last Admin: 06/18/21 08:21 Dose: 5 mg Documented by: Nifedipine (Nifedipine Er (24 Hr) 30 Mg Tablet) 90 mg PO DAILY [facility] Last Admin: 06/18/21 08:22 Dose: 90 mg Documented by: Ondansetron HCl (Ondansetron 2 Mg/Ml Sdv 2 Ml) 4 mg IVP Q8H PRN PRN Reason: vomiting, or N/V if npo Last Admin: 06/14/21 04:14 Dose: 4 mg Documented by: Pantoprazole Sodium (Pantoprazole Dr 40 Mg Tablet) 40 mg PO DAILY [facility] Last Admin: 06/18/21 10:43 Dose: 40 mg Documented by: Sevelamer Carbonate (Sevelamer 800 Mg Tablet) 1,600 mg PO TID [facility] Last Admin: 06/18/21 20:18 Dose: 1,600 mg Documented by: Vitals/I&O/Wt Last Vital Signs Temp 97.5 F L 06/19/21 08:55 Pulse 92 06/19/21 08:55 Resp 18 06/19/21 08:55 BP 152/99 06/19/21 08:55 Pulse Ox 93 06/19/21 04:00 06/18/21 06/19/21 06/19/21 22:59 06:59 14:59 Intake Total 300 / 300 350 / 650 Output Total 400 / 420 100 / 520 Balance -100 / -120 250 / 130 Weight last 48 hrs Weight 100.414 kg Weight 95.481 kg Physical Exam Narrative: EXAM NARRATIVE: sitting up,, NARD, VS noted- BP high -seen on dialysis- tolerating well heent- nc/at, eomi, anicteric neck supple left ij tunnelled dialysis catheter lung clear b/l heart reg, +XIMENA abd soft, nt, nd, + bs ext LLE BKA, trace RLE edema LUE AVF neuro- a,a, o x 3 Urinary Catheter Management: Blue: Cath Placed During This Visit: yes, but has since been removed by the nurse Reason for Continuing Indwelling Catheter: Acute Urinary Retention or Obstruction Urinary Catheter Date of Insertion: 06/10/21 Urinary Catheter Time of Insertion: 16:10 Date Urinary Catheter Removed: 06/14/21 Time Urinary Catheter Discontinued: 11:50 Data : 06/19/21 04:10 06/19/21 04:10 Micro: Microbiology 06/14/21 04:15 Blood Culture - Final Blood NO GROWTH AFTER 5 DAYS 06/14/21 04:10 Blood Culture - Final Blood NO GROWTH AFTER 5 DAYS A&P Assessment and plan (1) ESRD (end stage renal disease) on dialysis: Seen via telehealth with assistance of RN at bedside 1. ESRD - s/p tunneled HD catheter -HD today or tomorrow 2. staph aureus bacteremia, wrist abscess, eendocarditis- - renal dose abx -keep vanco trough under 20 - per ID, for 6 weeks from neg blood cx day 1 is 06/13 -Per Dr. Yoder of cardiology- he has severe eccentric mitral regurgitation.? He may benefit from surgical intervention, once infection is appropriately treated.? Surgical consult would be appropriate. last cx + 1- 3. Anemia, Hb 7.6- epogen mwf -no iv iron w/ bacteremia 4. Hypertension- improved - remove fluids on hd. may need more meds 5. hyperphosphatemia- improved w/ HD and binders discussed w/ pt seen and examined w/ RN- telehealth visit time spent 25 min Status: Acute Plan as above Attestations Medical Necessity Statement*: bacteremia/ endocarditis Time Spent in Patient Care: 16 - 35 minutes (>than 50% of time spent in counselling and/or direct pt care on unit) . Coding Level of Care Code Acute Compensation Consulting Manager for [facility] Diagnoses ESRD (end stage renal disease) on dialysis N18.6; Z99.2
[2021-06-19] MEDS: sevelamer 800 mg Tablet 1600 MG PO (10:14)
[2021-06-19] MEDS: NIFEdipine ER (24 hr) 30 mg Tablet 90 MG PO (10:14)
[2021-06-19] MEDS: minoxidil 10 mg Tablet 5 MG PO (10:14)
[2021-06-19] MEDS: carvedilol 25 mg Tablet PO (10:15)
[2021-06-19] MEDS: pantoprazole DR 40 mg Tablet PO (10:15)
[2021-06-19] MEDS: cloNIDine 0.1 mg Tablet PO (10:15)
[2021-06-19] MEDS: hyDRALAzine 50 mg Tablet PO (10:15)
[2021-06-19] MEDS: ferrous gluconate 324 mg Tablet PO (10:15)
[2021-06-19] MEDS: vancomycin 1,000 MG in sodium chloride 0.9% 250 ML 250 MG IV (10:16)
--- NOTE | 2021-06-19 10:41 | PM.PN ---
Subjective Subjective: Interval history: Patient is doing well receiving dialysis. The catheter is functioning well Medications: Reviewed: Yes Vitals/I&O/Wt Last Vital Signs Temp 97.5 F L 06/19/21 08:55 Pulse 92 06/19/21 08:55 Resp 18 06/19/21 08:55 BP 152/99 06/19/21 08:55 Pulse Ox 93 06/19/21 04:00 06/18/21 06/19/21 06/19/21 22:59 06:59 14:59 Intake Total 300 / 650 350 / 650 655 / 655 Output Total 400 / 520 100 / 520 Balance -100 / 130 250 / 130 655 / 655 Weight last 48 hrs Weight 221 lb 6 oz Weight 210 lb 8 oz Physical Exam Narrative: EXAM NARRATIVE: HEENT: Tunneled hemodialysis catheter in place, no cellulitis or hematoma Urinary Catheter Management: Blue: Cath Placed During This Visit: yes, but has since been removed by the nurse Reason for Continuing Indwelling Catheter: Acute Urinary Retention or Obstruction Urinary Catheter Date of Insertion: 06/10/21 Urinary Catheter Time of Insertion: 16:10 Date Urinary Catheter Removed: 06/14/21 Time Urinary Catheter Discontinued: 11:50 Data : 06/19/21 04:10 06/19/21 04:10 Micro: Microbiology 06/14/21 04:15 Blood Culture - Final Blood NO GROWTH AFTER 5 DAYS 06/14/21 04:10 Blood Culture - Final Blood NO GROWTH AFTER 5 DAYS A&P Assessment and plan (1) S/P hemodialysis catheter insertion: 35-year-old male status placement of tunneled hemodialysis catheter in the left internal jugular vein. The catheter is functioning well and he is currently being dialyzed. No hematoma or cellulitis. 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
[2021-06-19 12:00] VITALS: BP 162/100; PULSE 93; RESP 16; TEMP 37; O2SAT 94
--- NOTE | 2021-06-19 12:07 | P.DS_ITS ---
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 He underwent IND of forearm abscess, removal of HD catheter, placement of right groin HD catheter received broad-spectrum antibiotic therapy, hemodialysis Clinically improved, had placement of right chest dialysis catheter, will be discharged on vancomycin 1 g Wednesday after dialysis, for 6 weeks, with recheck vancomycin trough on Mondays before di alysis. He will follow-up with infectious disease in 6 weeks, follow-up with cardiothoracic surgery in 1 month. For his right forearm abscess follow-up with orthopedic service as outpatient. 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 BALTAZAR results consistent with echogenic density seen on posterior mitral leaflet, posterior tricuspid valve measuring 1 to 0.5 cm in size suggestive of endocarditis. Post I&D of forearm abscess on 06/11.? HD catheter removed 06/10 Right groin HD catheter removed, June 18, 2021 Blood cultures from 06/09 also positive. Repeat blood cultures sent 06/11 so far negative For now continue with vancomycin.? discharge on vancomycin 1 g after dialysis pulmonology headache on for 6 weeks Last vancomycin trough 18.4, check every Wednesday before dialysis target levels 15-20.? Dose vancomycin accordingly. Decolonization as per ID. Right forearm abscess: Post I&D with orthopedics on 06/11. Repeat CT scan of distal forearm Bones/joints: No bone destruction or fracture. Soft tissues: Since the recent prior study a slightly rim enhancing intramuscular fluid collection in the distal forearm near the radius has slightly decreased in size. Currently this fluid measures 1.6 x 1.3 x 3.5 cm and previously measured 3.5 x 1.6 x 3.7 cm. No gas in the fluid. Overlying cutaneous disruption is likely postoperative. No new abscess. Persisting generalized subcutaneous edema in the forearm and wrist. Currently wrapped and bandaged Continue gentle wound care Continue antibiotics Follow-up orthopedics as outpatient CKD: Removal of HD catheter on 06/10. Status post left tunnel dialysis catheter placement Hypoxia: Resolved. COVID-19 PCR negative.? Most likely secondary to congestive diastolic heart failure. Perfusion study low probability for PE. Hemodialysis with negative fluid balance. Monitor strict input output charting. Hypertension: Goal blood pressure less than 140/90 mmHg. Blood pressure better controlled.? Continue with home dose of hydralazine, nifedipine.? Continue with Coreg 25 mg twice daily and clonidine 0.1 milligrams 3 times a day. Physical Exam Urinary Catheter Management: Blue: Cath Placed During This Visit: yes, but has since been removed by the nurse Reason for Continuing Indwelling Catheter: Acute Urinary Retention or Obstructi on Urinary Catheter Date of Insertion: 06/10/21 Urinary Catheter Time of Insertion: 16:10 Date Urinary Catheter Removed: 06/14/21 Time Urinary Catheter Discontinued: 11:50 Discharge Data Studies Completed and Pending Completed Studies During Hospitalization Category Date Time Status CT abdomen pelvis wo con [id number] Urgent Cat Scan 06/07/21 13:[address] chest wo con [id number] Routine Cat Scan 06/08/21 08:[address] forearm RT w con [id number] Routine Cat Scan 06/10/21 17:[address] forearm RT w con [id number] Routine Cat Scan 06/16/21 19:34 Completed XR chest 1V portable [id number] Stat Exams 06/07/21 13:15 Completed XR forearm RT 2V [id number] Routine Exams 06/08/21 13:10 Completed NM pul vent and perfus* [id number] Routine Nuc Med 06/09/21 13:23 Completed CV unlisted vascular [id number] Routine Ultrasound 06/09/21 10:56 [place] [id number] Routine Ultrasound 06/09/21 09:44 [place] [id number] Urgent Ultrasound 06/07/21 13:08 Completed CV. echo complete* [id number] Routine Ultrasound 06/08/21 16:26 Completed CV. echo transesophageal [id number] Routine Ultrasound 06/09/21 16:30 Completed US venous duplex upper extremity LT [CV venous duplex Ultrasound 06/09/21 10:53 [place] [id number]] Routine Pending at discharge Category Date Time Status Anaerobic Culture Routine Lab 06/11/21 19:10 Results Vancomycin Trough AM LABS Lab 06/20/21 04:00 Ordered Radiology Impressions Abdomen/Pelvis CT 06/07/21 13:15 IMPRESSION: 1. Cardiomegaly. 2. Bilateral atrophic kidneys. 3. There is a large amount of ascites and soft tissue anasarca. This can be seen with congestive heart failure or renal failure. Chest X-Ray 06/07/21 13:15 IMPRESSION: 1. Cardiomegaly. 2. Ill-defined density overlying the mid to lower left lung field is nonspecific and may represent overlying structures. Chest CT 06/08/21 08:11 IMPRESSION: 1. Cardiomegaly. Bilateral pulmonary ground-glass opacities in this patient may represent pulmonary edema and/or pneumonia. 2. There is soft tissue anasarca and ascites in the upper abdomen. Forearm X-Ray 06/08/21 13:10 IMPRESSION: No acute findings. Venous Duplex 06/09/21 10:53 IMPRESSION: 1. No evidence of deep vein thrombosis. 2. There is no arterialized flow in any of the veins visualized in the left upper extremity. This suggests that the previous AV fistula is occluded. Vascular Ultrasound 06/09/21 10:56 IMPRESSION: 1. 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 This likely accounts for the patient's pulsatile palpable abnormality. 2. No patent arteriovenous fistula identified. Pulmonary Perfusion Imaging 06/09/21 13:23 IMPRESSION: Low probability pulmonary embolism. Forearm CT 06/16/21 19:34 IMPRESSION: Decreased distal forearm abscess. C-Arm Fluoroscopy 06/18/21 12:42 IMPRESSION: Dialysis catheter position as above. Laboratory Results WBC 12.9 10^3/uL (4.0-10.0) H 06/19/21 04:10 RBC 2.81 10^6/uL (4.1-5.3) L 06/19/21 04:10 Hgb 7.6 g/dL (11.7-16.6) L 06/19/21 04:10 Hct 25.0 % (42.0-52.0) L 06/19/21 04:10 MCV 89.0 fl (80-94) 06/19/21 04:10 MCH 27.0 pg (28.0-34.0) L 06/19/21 04:10 MCHC 30.4 g/dL (30.0-36.0) 06/19/21 04:10 RDW 20.4 % (12.1-15.1) H 06/19/21 04:10 Plt Count 369 10^3/cmm (130-400) 06/19/21 04:10 MPV 9.7 fL (7.4-10.4) 06/19/21 04:10 Neut % (Auto) 79.5 % 06/19/21 04:10 Lymph % (Auto) 9.3 % 06/19/21 04:10 [place] % (Auto) 7.0 % 06/19/21 04:10 Eos % (Auto) 2.2 % 06/19/21 04:10 Baso % (Auto) 0.8 % 06/19/21 04:10 Neut # (Auto) 10.23 10^3/uL (1.8-7.7) H 06/19/21 04:10 Lymph # (Auto) 1.2 10^3/uL (0.8-4.8) 06/19/21 04:10 [place]orte # (Auto) 0.9 10^3/uL (0.2-0.9) 06/19/21 04:10 Eos # (Auto) 0.3 10^3/uL (0.0-0.8) 06/19/21 04:10 Baso # (Auto) 0.1 10^3/uL (0.0-0.1) 06/19/21 04:10 Nucleated RBC % (auto) 0 % 06/19/21 04:10 Nucleated RBCs # 0.0 /100WBC 06/19/21 04:10 PT 21.10 SECONDS (12.1-14.9) H 06/07/21 13:38 INR 1.78 (0.8-1.2) H 06/07/21 13:38 APTT 40.8 SECONDS (23.9-36.7) H 06/07/21 13:38 D-Dimer 19.94 ug/mIFEU (0-0.59) H 06/09/21 10:28 Sodium 136 mmol/L (136-145) 06/19/21 04:10 Potassium 5.3 mmol/L (3.5-5.1) H 06/19/21 04:10 Chloride 100 mmol/L (98-107) 06/19/21 04:10 Carbon Dioxide 19 mmol/L (22-29) L 06/19/21 04:10 Anion Gap 22.3 (5-19) H 06/19/21 04:10 BUN 57 mg/dL (6-20) H 06/19/21 04:10 Creatinine 9.4 mg/dL (0.7-1.2) H* 06/19/21 04:10 GFR Calculation 6.4 mL/min (90-130) L 06/19/21 04:10 Glucose 90 mg/dL (65-115) 06/19/21 04:10 Estimat Average Glucose 85 06/10/21 04:04 Hemoglobin A1c 4.6 % (4.0-6.0) 06/10/21 04:04 Calculated Osmolality 297 mOsm/kg (285-295) H 06/19/21 04:10 Lactate 1.0 mmol/L (0.5-2.2) 06/07/21 13:38 Calcium 9.4 mg/dL (8.5-10.5) 06/19/21 04:10 Phosphorus 4.2 mg/dL (2.5-4.5) 06/19/21 04:10 Magnesium 2.1 mg/dL (1.7-2.3) 06/19/21 04:10 Iron 19 ug/dL (59-158) L 06/09/21 08:24 Iron Cancelled 06/09/21 08:24 TIBC 148 mcg/dl 06/09/21 08:24 % Saturation 12.8 % (20-50) L 06/09/21 08:24 Unsat Iron Binding 129 ug/dL (112-347) 06/09/21 08:24 Ferritin 810 ng/mL (30-400) H 06/09/21 08:24 Total Bilirubin 0.4 mg/dL (0.15-1.2) 06/19/21 04:10 AST 12 U/L (0-40) 06/19/21 04:10 ALT < 5 U/L (0-41) 06/19/21 04:10 Alkaline Phosphatase 102 IU/L (40-130) 06/19/21 04:10 Creatine Kinase 46 U/L (39-308) 06/09/21 10:28 Troponin T Baseline 114 ng/L (0-15) H* 06/07/21 12:45 Troponin T 120 Minute 101.4 ng/L (0-15) H 06/07/21 15:30 Delta Troponin T -12.6 ABS# (0-10) L 06/07/21 15:30 Troponin T Hi Sens 6Hr 109.5 ng/L (0-15) H 06/07/21 18:50 Troponin T Hi Sens 6Hr Delta -4.5 ng/L (0-12) L 06/07/21 18:50 C-Reactive Protein 116.6 mg/L (0.0-4.9) H 06/09/21 10:28 NT-Pro-B Natriuret Pep > 80488 pg/mL (0-125) H 06/09/21 10:28 Total Protein 6.5 g/dL (6.6-8.7) L 06/19/21 04:10 Albumin 3.4 g/dL (3.5-5.2) L 06/19/21 04:10 Globulin 3.1 g/dL (1.3-4.6) 06/19/21 04:10 Triglycerides 146 mg/dL (0-150) 06/10/21 04:04 Cholesterol 107 mg/dL (0-200) 06/10/21 04:04 LDL Cholesterol, Calc 53 mg/dL (50-129) 06/10/21 04:04 Total VLDL Cholesterol 29 mg/dL (0-30) 06/10/21 04:04 HDL Cholesterol 25 mg/dL (60-100) L 06/10/21 04:04 Cholesterol/HDL Ratio 4.28 mg/dL (1.0-5.00) 06/10/21 04:04 Lipase 10 U/L (13-60) L 06/07/21 12:45 Vitamin B12 487 pg/mL (232-1245) 06/09/21 10:28 Folate 5.1 ng/mL (4.5-32.2) 06/09/21 10:28 Procalcitonin > 100.00 ng/mL (0-0.5) H 06/09/21 10:28 TSH 4.96 uIU/mL (0.27-4.20) H 06/09/21 10:28 Free T4 0.93 ng/dL (0.82-1.77) 06/09/21 10: Free T3 1.4 PG/ML (2.0-4.4) L 06/09/21 10:28 PTH Intact 169.9 pg/mL (15-65) H 06/11/21 03:05 Calcium (PTH Intact) 8.0 mg/dL (8.5-10.5) L 06/11/21 03:05 Urine Color Yellow (Yellow) 06/12/21 02:05 Urine Appearance Cloudy (CLEAR) 06/12/21 02:05 Urine pH 9 (5-7) H 06/12/21 02:05 Ur Specific Homer 1.015 (1.005-1.030) 06/12/21 02:05 Urine Protein 3+ (Negative) H 06/12/21 02:05 Urine Glucose (UA) 1+ (Normal) H 06/12/21 02:05 Urine Ketones Negative (Negative) 06/12/21 02:05 Urine Blood 3+ (Negative) H 06/12/21 02:05 Urine Nitrate Negative (Negative) 06/12/21 02:05 Urine Bilirubin Neg (Negative) 06/12/21 02:05 Prot Sulfosalicylic Acd Positive (Negative) 06/12/21 02:05 Urine Urobilinogen Norm mg/dL (Negative) 06/12/21 02:05 Ur Leukocyte Esterase 2+ (Negative) H 06/12/21 02:05 Urine RBC 25-40 /hpf (0-2) H 06/12/21 02:05 Urine WBC 10-15 /hpf (0-5) H 06/12/21 02:05 Ur Squamous Epith Cells 0-4 /hpf (0-5) H 06/12/21 02:05 Amorphous Sediment Not Reportable 06/12/21 02:05 Urine Bacteria 1+ /hpf (NONE) H 06/12/21 02:05 Vancomycin Trough 18.4 ug/mL (10-15) H 06/19/21 04:10 Random Vancomycin 19.7 ug/mL (20.0-40.0) L 06/16/21 03:50 Urine Opiates Screen Negative ng/mL (Negative) 06/07/21 19:25 Ur Barbiturates Screen Negative ng/mL (Negative) 06/07/21 19:25 Ur Phencyclidine Scrn Negative ng/mL (Negative) 06/07/21 19:25 Ur Amphetamines Screen Negative ng/mL (Negative) 06/07/21 19:25 U Benzodiazepines Scrn Negative ng/mL (Negative) 06/07/21 19:25 Urine Cocaine Screen Negative ng/mL (Negative) 06/07/21 19:25 U Marijuana (THC) Screen Negative ng/mL (Negative) 06/07/21 19:25 Ethyl Alcohol < 10 mg/dL (0-10) 06/07/21 12:45 Coronavirus 229E (PCR) Not detected (NOT DETECT) 06/07/21 13:52 Hep Bs Antigen Non-reactive (Nonreactive) 06/07/21 12:45 Hep Bs Antibody 129.8 (11.5-1000) 06/07/21 12:45 Hepatitis C Antibody Non-reactive (Nonreactive) 06/07/21 12:45 HIV 1&2 Ab & HIV 1 Ag Non-reactive (Non-Reactiv) 06/09/21 10:28 HIV 1&2 Antibody Non-reactive (Non-Reactiv) 06/09/21 10:28 SARS-CoV-2 (PCR) Not detected (NOT DETECT) 06/07/21 13:52 Blood Type A Positive 06/15/21 11:15 Rho(D) Type Positive 06/15/21 11:15 Antibody Screen Negative 06/15/21 11:15 Crossmatch See Detail 06/15/21 11:15 Vitals Last Vital Signs Temp 97.5 F L 06/19/21 08:55 Pulse 92 06/19/21 08:55 Resp 18 06/19/21 08:55 BP 152/99 06/19/21 08:55 Pulse Ox 93 06/19/21 04:00 Discharge Plan Discharge Patient Disposition: Home Condition: Stable Prescriptions: New hydralazine 50 mg Tablet 50 mg PO TID 30 Days Qty: 90 0RF ferrous gluconate 324 mg (37.5 mg iron) Tablet 324 mg PO BIDWM 30 Days Qty: 60 0RF sevelamer carbonate 800 mg Tablet 1,600 mg PO TID 30 Days Qty: 180 0RF clonidine HCl 0.1 mg Tablet 0.1 mg PO TID 30 Days Qty: 90 0RF vancomycin 1,000 mg recon soln See Rx Instructions .ROUTE .COMPLEX Qty: 10 0RF Rx Instructions: 1000mg after dialysis, on dialysis days, for 6 total weeks Continued pantoprazole 40 mg tablet,delayed release (DR/EC) 40 mg PO DAILY 0RF minoxidil 10 mg tablet 5 mg PO DAILY 0RF carvedilol 25 mg Tablet 25 mg PO BID 0RF nifedipine 90 mg Tablet Extended Release 90 mg PO DAILY 0RF Discontinued furosemide 80 mg tablet 80 mg PO BID 0RF hydralazine 100 mg tablet 100 mg PO TID 0RF RenaPlex-D 800 mcg-12.5 mg -2,000 unit tablet 1 tab PO DAILY 0RF Generlac 10 gram/15 mL solution 30 ml PO DAILY PRN (Reason: Constipation) 0RF Discharge Orders: Discharge Order (Routine); Ordered 06/19/21 Ordered By: Raciel Chapin Other Ambulatory Orders: Vancomycin Trough (WEEKLY) Timeframe: [id number] Facility: [facility] - Location: Lab - Main Lab Ordered By: Raciel Chapin Vancomycin Trough (WEEKLY) Timeframe: [id number] Facility: [facility] - Location: Lab - Main Lab Ordered By: Raciel Chapin Vancomycin Trough (WEEKLY) Timeframe: [id number] Facility: [facility] - Location: Lab - Main Lab Ordered By: Raciel Chapin Vancomycin Trough (WEEKLY) Timeframe: [id number] Facility: [facility] - Location: Lab - Main Lab Ordered By: Raciel Chapin Vancomycin Trough (WEEKLY) Timeframe: [id number] Facility: [facility] - Location: Lab - Main Lab Ordered By: Raciel Chapin Vancomycin Trough (WEEKLY) Timeframe: [id number] Facility: [facility] - Location: Lab - Main Lab Ordered By: Raciel Chapin Referrals: Jasbir Sarkar DO [Physician] - (PLEASE CALL FOR APPOINTMENT WITH DR SARKAR FOR 2 WEEK APPOINTMENT TO GET STITCHES OUT) Kumar Carvajal MD [Primary Care Provider] - (PLEASE CALL FOR APPOINTMENT WITH YOUR PCP FOR 1 WEEK.) Alvina Anderson MD [Hospitalist] - 1 month (endocarditis) Raciel Chapin MD [Hospitalist] - 1 week Vicente Almeida MD [Physician] - 1 month (endocarditis ) Discharge Diet: Cardiac Discharge Activity: Resume usual activity Patient Instructions: Hemodialysis, Perma-cath Placement (DC), Opioid Safety Activity Restrictions/Additional Instructions: f/u orthopedic clinic in 2 weeks to get stitches out with Dr Sarkar for right forearm keep wound cleand and dry change dressing daily as needed Continue dialysis- -Next dialysis session on Wednesday, vancomycin thereafter -Dialysis days Wednesday, check vancomycin trough weekly, before dialysis, preferably on Wednesday -Vancomycin trough between 15-20 -Follow-up with me in 1 week -Please abstain from drug use Discharge Attestations Time Spent in Discharge Care*: greater than 30 min Quality Metrics Clinical Quality Measures [ No reported AMI, CVA or VTE this stay] Coding Level of Care Code Acute Chg FW DC note Diagnoses S/P hemodialysis catheter insertion Z99.2
[2021-06-19 15:13] VITALS: BP 162/100; PULSE 93; RESP 16; TEMP 37; O2SAT 94
== END 2021-06-19 15:14 | disposition home or self-care (01) | DRG 981 ==
LOC: ER 14:59 → ICU 15:22 → MEDSURG 06-14 17:46
PROVIDERS: Internal Medicine; Internal Medicine Nephrology; Orthopaedic Surgery; Student in an Organized Health Care Education/Training Program; Surgery; Admitting Provider Internal Medicine; Emergency Provider Emergency Medicine; PCP Emergency Medicine; Visit Provider Family Medicine
PROC: 02PA33Z Removal of Infusion Device from Heart, Percutaneous Approach (ICD-10-PCS; principal; 2021-06-10 17:15)
PROC: 0KB90ZZ Excision of Right Lower Arm and Wrist Muscle, Open Approach (ICD-10-PCS; principal; 2021-06-11 17:45)
PROC: 06HM33Z Insertion of Infusion Device into Right Femoral Vein, Percutaneous Approach (ICD-10-PCS; principal; 2021-06-13 07:00)
PROC: 0JH63XZ Insertion of Tunneled Vascular Access Device into Chest Subcutaneous Tissue and Fascia, Percutaneous Approach (ICD-10-PCS; principal; 2021-06-18 13:10)
DX: T82.7XXA Infection and inflammatory reaction due to other cardiac and vascular devices, implants and grafts, initial encounter (principal); I50.31 Acute diastolic (congestive) heart failure; N18.6 End stage renal disease; I13.2 Hypertensive heart and chronic kidney disease with heart failure and with stage 5 chronic kidney disease, or end stage renal disease; Q87.81 Alport syndrome; E87.2 Acidosis; T82.510A Breakdown (mechanical) of surgically created arteriovenous fistula, initial encounter; I38 Endocarditis, valve unspecified; L02.413 Cutaneous abscess of right upper limb; I24.8 Other forms of acute ischemic heart disease; Y82.9 Unspecified medical devices associated with adverse incidents; Z99.2 Dependence on renal dialysis; Z91.15 Patient's noncompliance with renal dialysis; E87.5 Hyperkalemia; D63.1 Anemia in chronic kidney disease; Z86.14 Personal history of Methicillin resistant Staphylococcus aureus infection; B95.62 Methicillin resistant Staphylococcus aureus infection as the cause of diseases classified elsewhere; F19.11 Other psychoactive substance abuse, in remission; G47.30 Sleep apnea, unspecified
CPT/HCPCS: 36415; 36430; 51702; 71045; 71250; 73090; 73201; 74176; 76882; 77001; 78014; 80053; 80061; 80202; 80306; 80307; 81001; 82310; 82550; 82607; 82728; 82746; 83036; 83540; 83550; 83605; 83690; 83735; 83880; 83970; 84100; 84145; 84439; 84443; 84481; 84484; 85014; 85018; 85025; 85378; 85610; 85730; 86140; 86706; 86803; 86850; 86900; 86920; 87040; 87070; 87075; 87077; 87086; 87150; 87186; 87205; 87340; 87635; 87641; 87806; 90935; 93005; 93306; 93312; 93320; 93325; 93970; 93971; 93998; 94664; 96365; 96367; 96372; 96375; 99285; A9540; A9567; C1750; J0610; J0690; J1100; J1170; J1644; J1650; J1815; J1940; J2250; J2310; J2370; J2405; J2543; J2704; J3010; J3370; J3490; J7030; J7040; J7050; P9051; Q3014; Q4081; Q9967

== ENCOUNTER 2021-06-23 02:58 | Emergency (ER) | payer MEDICAID, SELFPAY ==
[2021-06-23 03:01] VITALS: BP 176/120; PULSE 98; RESP 18; TEMP 36.7; O2SAT 94; BMI 26.4
--- NOTE | 2021-06-23 03:25 | XRR_ITS ---
PROCEDURE INFORMATION: Exam: XR Chest Exam date and time: 06/23/2021 3:25 AM Age: 35 years old Clinical indication: Other: Dialysis catherter bleeding; Prior surgery; Surgery type: Port TECHNIQUE: Imaging protocol: XR of the chest. Views: 1 view. COMPARISON: CT chest wo con [id number] 06/08/2021 11:40 AM FINDINGS: Tubes, catheters and devices: Left-sided Dialysis catheter tips are present in the right atrium. Lungs: Hazy right basilar opacity which could be secondary to atelectasis or pneumonia. Pleural spaces: Unremarkable. No pleural effusion. No pneumothorax. Heart/Mediastinum: There is mild cardiomegaly. Bones/joints: Unremarkable. XR/XR chest 1V portable [id number] IMPRESSION: 1. Hazy right basilar opacity which could be secondary to atelectasis or pneumonia. 2. Mild cardiomegaly.
[2021-06-23] MEDS: silver nitrate applicator 1 EACH TOPICAL (03:33)
--- NOTE | 2021-06-23 03:52 | W.ED.GENADLT ---
HPI - General Adult General: Chief complaint: General Medical Stated complaint: PORT IS BLEEDING Time Seen by Provider: 06/23/21 03:04 Source: patient History of Present Illness: 35-year-old dialysis patient who had a dialysis catheter placed last . He has noted bleeding from and around the site that started a few hours ago. He has soaked gauze pads and that time. He continues to use. He is due for dialysis later this morning in town. He is not anticoagulated. Onset (ago): hour(s) Location: chest (Around site) Radiation: non-radiation Severity: mild Pain Consistency: constant Relieving factors: none Exacerbating factors: none Associated symptoms: Deny chest pain, confusion, cough, dyspnea, fevers/chills, headache(s), nausea, rash, palpitations, short of breath or vomiting Review of Systems Card: Denies: chest pain or palpitations Resp: Denies: dyspnea GI: Denies: nausea or vomiting Skin/Breast: Denies: rash Neuro: Denies: headache(s) or confusion PFSH ED PFSH: Medical History (Updated 06/23/21 @ 06:06 by Barry Holloway DO) Alport syndrome Dialysis AV fistula malfunction Diastolic heart failure Hemodialysis catheter infection HTN (hypertension) MRSA bacteremia Surgical History (Updated 06/19/21 @ 10:42 by Luis Worthington MD) Fistula Left forearm S/P hemodialysis catheter insertion (06/19/21) Multiple Status post dialysis Family History Other ESRD (end stage renal disease) Social History Smoking and tobacco status: never smoked Alcohol intake: never Other details last substance use: Marijuana. Denies any other. Denies IVDU. Lives independently: Yes Household members: spouse Marital status: Current occupational status: unemployed Physical Exam Const: COMMON NORMALS: no acute distress EXAM LIMITATIONS: no altered mental status GENERAL APPEARANCE: cooperative and comfortable; not ill appearing HENMT: COMMON NORMALS: normocephalic, atraumatic and Normal external nose present HEAD & SCALP: normocephalic and atraumatic NOSE: Normal external nose present Eye: COMMON NORMALS: Equal, round and reactive pupils present and EOMs intact bilaterally PUPIL: Yes Equal, round and reactive pupils present Neck/C-Spine: COMMON NORMALS: full ROM Resp: COMMON NORMALS: normal respiratory effort, No use of accessory muscles and clear to auscultation bilaterally AUSCULTATION: clear to auscultation bilaterally Cardio: COMMON NORMALS: regular rate and regular rhythm RATE: regular rate RHYTHM: regular rhythm GI: COMMON NORMALS: Normal to inspection, nondistended, normoactive bowel sounds present and Soft to palpation PALPATION: Yes Soft to palpation Neuro: HOANG COMA SCALE: document GCS findings Hoang coma scale eye opening: Spontaneous Hoang coma scale verbal response: Orientated Monroe coma scale motor response: Obey commands Monroe coma scale total score: 15 Skin: NARRATIVE SKIN EXAM: Skin at the chest wall reveals very slow trickle of bleeding at the insertion site of the dialysis catheter. Minimal clot formation. There is no surrounding erythema or streaking. No surrounding swelling. Course Vital Signs: Vital signs: Vital Signs Temperature 98.0 F 06/23/21 03:01 Pulse Rate 86 06/23/21 06:11 Respiratory Rate 20 H 06/23/21 06:11 Blood Pressure 175/134 06/23/21 06:11 Pulse Oximetry 93 06/23/21 04:21 MDM - General Adult Medical Decision Making Silver nitrate used around the granulating edge of the catheter site to slow bleeding after cleaning with saline and peroxide. We will see if this holds. Chest x-ray shows a catheter in normal position with no complication. After using TXA, and Surgicel, bleeding has stopped. Patient will be discharged to dialysis later this morning Lab Data Radiology Impressions Chest X-Ray 06/23/21 03:25 IMPRESSION: 1. Hazy right basilar opacity which could be secondary to atelectasis or pneumonia. 2. Mild cardiomegaly. Discharge Plan Discharge Patient Disposition: Home Clinical Impression: Bleeding due to dialysis catheter placement Condition: Stable Prescriptions: No Action pantoprazole 40 mg tablet,delayed release (DR/EC) 40 mg PO DAILY 0RF minoxidil 10 mg tablet 5 mg PO DAILY 0RF carvedilol 25 mg Tablet 25 mg PO BID 0RF nifedipine 90 mg Tablet Extended Release 90 mg PO DAILY 0RF clonidine HCl 0.1 mg Tablet 0.1 mg PO TID 30 Days Qty: 90 0RF hydralazine 50 mg Tablet 50 mg PO TID 30 Days Qty: 90 0RF sevelamer carbonate 800 mg Tablet 1,600 mg PO TID 30 Days Qty: 180 0RF ferrous gluconate 324 mg (37.5 mg iron) Tablet 324 mg PO BIDWM 30 Days Qty: 60 0RF vancomycin 1,000 mg recon soln See Rx Instructions .ROUTE .COMPLEX Qty: 10 0RF Rx Instructions: 1000mg after dialysis, on dialysis days, for 6 total weeks Discharge Orders: Discharge ED (Routine); Ordered 06/23/21 Ordered By: Barry Holloway Referrals: Kumar Carvajal MD [Primary Care Provider] - Patient Instructions: Postoperative Bleeding (ED) Activity Restrictions/Additional Instructions: Report to dialysis later this morning. Return for any continued hemorrhage that is significant. Coding Level of Care Code ED Cobol Engineer for Glendy Fwd Exam Comprehensive
--- NOTE | 2021-06-23 04:20 | PC.NURSE ---
surgicell dressing applied around port insertion.
[2021-06-23 04:21] VITALS: BP 185/113; PULSE 99; RESP 22; O2SAT 93
[2021-06-23] MEDS: lidocaine-prilocaine cream 5 gm 1 APPLIC TOPICAL (04:51)
[2021-06-23] MEDS: tranexamic acid 1,000 mg/10mL SDV 1000 MG IRRIGATION (05:19)
[2021-06-23 06:11] VITALS: BP 175/134; PULSE 86; RESP 20
== END 2021-06-23 06:10 | disposition home or self-care (01) ==
PROVIDERS: Emergency Provider Emergency Medicine; PCP Emergency Medicine
DX: T82.838A Hemorrhage due to vascular prosthetic devices, implants and grafts, initial encounter (principal); I11.0 Hypertensive heart disease with heart failure; I50.30 Unspecified diastolic (congestive) heart failure
CPT/HCPCS: 71045; 99283

== ENCOUNTER → 2021-06-25 11:47 | Outpatient (BNVA) | payer MEDICAID, SELFPAY | PROVIDERS: PCP Emergency Medicine; Visit Provider Surgery | DX: Z20.822 Contact with and (suspected) exposure to COVID-19 (principal) | CPT/HCPCS: 87635 ==

== ENCOUNTER 2021-06-27 06:55 | Inpatient (IN) | payer MEDICARE, MEDICAID, SELFPAY ==
[2021-06-27] VITALS (28 sets, daily range): BP systolic 80–153; BP diastolic 56–106; PULSE 71–91; RESP 16–30; O2SAT 93–100; BMI 27.1
--- NOTE | 2021-06-27 | USCV_ITS ---
Link Ann Age: 35 Gender: M : 1985 Exam Date: 06/27/2021 18:19 Ordering Phys: Lidia Lema MD Technologist: Chante Damon Exam Location: [facility] – [place], [place] Indication: AO ABSCESS BP: 128 / 94 HR: Rhythm: Sinus Technical Quality: Adequate MEASUREMENTS (Male / Female) Normal Values Medications Complications None Proc. Components Patient was intubated. We performed transesophageal echocardiogram under sedation with Fentanyl and Versed FINDINGS Left Ventricle LV systolic function is normal with EF of 55-60% Right Ventricle Normal in size and function Right Atrium Grossly normal Left Atrium Grossly normal LA Appendage No CASE thrombus seen IA Septum Mitral Valve Severe, eccenteric mitral regurgitation noted. Echogenic mass noted on the posterior mitral leaflet. This is consistent with vegetation. Aortic Valve Aortic valve is tricuspid. No signficant aortic stenosis or regurgitation. No evidence of aortic root abscess Tricuspid Valve Limited visualization. Moderate to severe, eccenteric tricuspid regurgitation. No vegetation could be visualized, however given TR, and prior recent findings of vegetation, it is highly likely Pulmonic Valve Grossly normal Pericardium Normal Aorta No significant atherosclerosis. No evidence of root abscess CONCLUSIONS LV systolic function is normal RV is normal is size and function No evidence of aortic root abscess Severe, eccenteric mitral regurgitation noted. Echogenic mass noted on the posterior mitral leaflet. This is consistent with vegetation. Limited visualization. Moderate to severe, eccenteric tricuspid regurgitation. No vegetation could be visualized, however given TR, and prior recent findings of vegetation, it is highly likely Compared to prior BALTAZAR performed on 06/09/21, no significant changes are noted, however Tricuspid vegetation could not be visualized on current study Mauro Gonzalez MD (Electronically Signed) Final Date: 28 June 2021 10:19 S
--- NOTE | 2021-06-27 | SCC_ITS ---
Procedure done: 1. Exchange of tunneled hemodialysis catheter to temporary nontunneled dialysis catheter in the left internal jugular vein 33.7 seconds of fluoroscopic guidance, for a cumulative dose of 5.83 mGy, was provided to Dr. Worthington by the radiology department. C-arm images of the chest were saved for the patient's permanent record. [facility]
--- NOTE | 2021-06-27 06:57 | W.ED.ABDPA2 ---
HPI - Abdominal Pain General: Chief Complaint: General Medical Stated Complaint: AMS ABD PAIN Time Seen by Provider: 06/27/21 06:56 History of Present Illness: 35-year-old male presents emergency room with abdominal discomfort. Patient has end-stage renal disease. . He is arousable answer some questions but is somewhat lethargic is not able to give a lot of information. He had recently been hospitalized for MRSA bacteremia and endocarditis had significant valve damage. He had prior to that had a tunneled dialysis catheter in the right IJ. Patient has a history of Alport syndrome and has end-stage renal disease the catheter was not attended to for over a year and he developed an abscess and was removed and a catheter was placed on the left. They have been using that for hemodialysis access. At that same time he also had an abscess on the fistula that had been been being cured in his left arm. Patient presents here with significant bradycardia. And hypotension. There is no chest pain per his report but he does have abdominal discomfort. When we contacted the dialysis clinic he had been at dialysis 2 days prior and received vancomycin. Beyond that we are unable to get much history from the patient. 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 Suggestive of endocarditis. Features of severe mitral regurgitation with a regurgitant fraction of 69.6% Moderately severe tricuspid regurgitation Normal LV size ejection fraction. Biatrial enlargement, right worse than the left. No pericardial effusion. Possible small patent foramen ovale. HTN (hypertension) Jugular vein occlusion, right MRSA bacteremia (05/2021) Severe mitral regurgitation Tricuspid regurgitation Surgical History Fistula Left forearm, non-functioning 05/2021 History of incision and drainage (06/11/21) right forearm abscess S/P hemodialysis catheter insertion -Tunneled right IJ HD catheter placed in [place], [place] removed 06/10/21 -Right femoral HD line placed 06/13/21 -Left IJ tunneled catheter placed 06/18/21 with same day removal of right femoral temporary HD catheter - Left IJ tunneled catheter exchanged to temporary catheter 06/27/2021 Family History Other Alport syndrome ESRD (end stage renal disease) Social History Smoking and tobacco status: never smoked Alcohol intake: never Other details last substance use: Marijuana. Denies any other. Denies IVDU. Lives independently: Yes Household members: spouse Marital status: Current occupational status: unemployed Physical Exam Const: GENERAL APPEARANCE: cooperative ORIENTATION/CONSCIOUSNESS: Yes awake and Yes oriented to place HENMT: COMMON NORMALS: normocephalic and atraumatic HEAD & SCALP: normocephalic and atraumatic Resp: AUSCULTATION: rhonchi and diminished lung sounds Cardio: JUGULAR VENOUS DISTENTION: JVD RATE: bradycardic HEART SOUNDS: Murmur heart sound present GI: COMMON NORMALS: No hepatosplenomegaly present AUSCULTATION: Yes normoactive bowel sounds PALPATION: Yes Tenderness to palpation present (GI) (Diffuse tenderness), No Guarding due to palpation present (GI) and Yes No hepatosplenomegaly present Extremity: COMMON NORMALS: normal to inspection, capillary refill normal, no clubbing, cyanosis or edema, no calf tenderness and no pedal edema Neuro: SENSORIUM/ORIENTATION: Yes oriented to place Procedures Central Line Placement Left IJ: Time Out Performed: Yes Patient Placed on Monitor/Pulse Ox: Yes Prep: mask and gloves Central Line Prep: Chlorhexidine scrub Ultrasound Used for Placement: Yes Central Line Lumen Inserted: triple Post Procedure: sutured in place, good blood return, all ports aspirated, flushed, capped and sterile dressing applied Post Procedure X-Ray: tip of catheter in good position and no pneumothorax seen Patient Tolerated Procedure: well and no complications Complications: none Right IJ: Time Out Performed: Yes Patient Placed on Monitor/Pulse Ox: Yes MD Prep: mask, gown and gloves Central Line Prep: Chlorhexidine scrub Ultrasound Used for Placement: Yes Central Line Lumen Inserted: triple Complications: other Additional Comments: Other outside gout guidance access to the right internal jugular without any difficulty. Was able to initially advance wire however after a few inches the wire would no longer advance. We retracted the wire slightly and rotated it and then advanced again after 2 attempts was unable to get the wire to advance at all using ultrasound vision tract of the internal jugular to its source where there appears to be stenosis. At this point attempted to retract the wire however it would not retract under gentle tension. Abandon the attempted withdrew the wire and the introducer needle as a single unit. On removal found that the wire had partially sheared near its tip. This was saved and was sent to the ammonium nitrate crystallizer. The entire wire was recovered. Second attempt for central line placement was made on the left IJ and was placed without difficulty see the note. Intubation Time out performed: Yes sedative: Etomidate paralytic: Succinylcholine Laryngoscope: fiber optic video scope Assist Device Used: fiber optic device ET Tube Size: 8.5 ET Tube Uncuffed: No Tube Secured Depth (cm): 22 Tube Placement Confirmation: visualized tube passing through cords, equal breath sounds bilaterally, no breath sounds over epigastrium and confirmation by capnometry Patient Tolerated Procedure: other (Vomited see notes below) Intubation Complications: none Additional Comments: On initial attempt to intubate patient had significant vomitus. The ET tube was withdrawn and immediately we suctioned with Yankauer that had been prepared at the bedside. A new ET tube was prepared the patient was hyperventilated with [id number] in the interim. On second attempt was easily able to intubate. Suctioning via the ET tube did not yield any gastric contents. Course Vital Signs: Vital signs: Vital Signs Temperature 97.3 F L 07/02/21 04:00 Pulse Rate 89 07/02/21 04:00 Respiratory Rate 17 07/02/21 04:00 Blood Pressure 141/76 07/02/21 04:00 Pulse Oximetry 95 07/02/21 04:00 MDM - Abdominal Pain Medical Decision Making During the course of work-up CT was done patient returned from CT he was noted to be hypoxic and bradycardic he was emergently intubated by RSI during the course of the intubation the patient did vomit. Vomitus was suctioned immediately and shortly after he was successfully intubated. Central line was placed per request of hospitalist initially attempted on the right IJ gained access to the vein easily however could not advance the wire on ultrasound can see there is sclerosis at the base of the IJ that side was abandoned and the central line was successfully placed on the first attempt on the left IJ. Consulted nephrology. They recommend removing the tunneled dialysis catheter and call to during the tip. He has been started on IV antibiotics after blood cultures were taken. Also initiated treatment for hyperkalemia. Hospitalist has been consulted as well as Dr. Worthington for removal and replacement of the tunneled dialysis catheter. We attempted transfer patient to tertiary care facility however due to lack of available beds at all receiving facilities we are forced to admit the patient here. Dr. Worthington has replaced the tunneled dialysis catheter Dr. Lema is in the department and seen the patient early on in the hospital course and assisted with management. Medical Records I reviewed the patient's medical records. Lab Data I reviewed the patient's lab results. : 07/02/21 05:17 07/02/21 05:17 Labs/Radiology: Radiology Impressions Head CT 06/27/21 09:15 IMPRESSION: 1. Nondiagnostic evaluation of the brain. 2. No large areas of hemorrhage and no midline shift. Chest X-Ray 06/27/21 12:45 IMPRESSION: There is been some retraction of the endotracheal tube as noted above. There is also been some retraction of the right jugular dialysis catheter. A second central line is been added through the left subclavian vein. This catheter could be advanced 5 to 6 cm for more optimal positioning. Resolution of previous lung opacities. Configuration of the heart suggests pericardial effusion. Patient is undergoing echocardiography today which should resolve this issue. Shoulder X-Ray 06/27/21 12:46 IMPRESSION: 1. LEFT central line enters through the LEFT jugular vein. 2. The LEFT central line is overlapping and partially obscured by the dialysis catheter. Chest CTA 06/27/21 13:58 IMPRESSION: 1. Without ECG gating there is significant motion artifact obscuring the aortic root and the ascending aorta. Abscess cannot be excluded without ECG gating. ECG gating is not available at this institution at this time. For further evaluation of the aortic root BALTAZAR should be considered. 2. Diffuse soft tissue edema and anasarca. 3. Extensive hepatomegaly with congestion and tricuspid regurgitation into hepatic veins. 4. Dilated RIGHT heart structures. Marked dilatation of the RIGHT atrium. 5. There is also moderate dilatation of the LEFT heart. 6. Near complete bilateral lower lobar collapse. 7. Abdominal ascites. Similar to the prior study from 06/08/2021. KUB X-Ray 06/28/21 22:11 IMPRESSION: 1. Nonspecific nonobstructive bowel gas pattern. 2. Appearance of large diffuse ascites. Laboratory Results WBC 10.0 10^3/uL (4.0-10.0) 06/27/21 07:11 RBC 2.91 10^6/uL (4.1-5.3) L 06/27/21 07:11 Hgb 8.1 g/dL (11.7-16.6) L 06/27/21 07:11 Hct 27.2 % (42.0-52.0) L 06/27/21 07:11 MCV 93.5 fl (80-94) 06/27/21 07:11 MCH 27.8 pg (28.0-34.0) L 06/27/21 07:11 MCHC 29.8 g/dL (30.0-36.0) L 06/27/21 07:11 RDW 22.5 % (12.1-15.1) H 06/27/21 07:11 Plt Count 328 10^3/cmm (130-400) 06/27/21 07:11 MPV 9.8 fL (7.4-10.4) 06/27/21 07:11 Neut % (Auto) 74.4 % 06/27/21 07:11 Lymph % (Auto) 14.1 % 06/27/21 07:11 [place] % (Auto) 4.4 % 06/27/21 07:11 Eos % (Auto) 4.3 % 06/27/21 07:11 Baso % (Auto) 2.1 % 06/27/21 07:11 Neut # (Auto) 7.43 10^3/uL (1.8-7.7) 06/27/21 07:11 Lymph # (Auto) 1.4 10^3/uL (0.8-4.8) 06/27/21 07:11 [place] # (Auto) 0.4 10^3/uL (0.2-0.9) 06/27/21 07:11 Eos # (Auto) 0.4 10^3/uL (0.0-0.8) 06/27/21 07:11 Baso # (Auto) 0.2 10^3/uL (0.0-0.1) H 06/27/21 07:11 Nucleated RBC % (auto) 0 % 06/27/21 07:11 Nucleated RBCs # 0.0 /100WBC 06/27/21 07:11 Specimen Type Arterial 06/27/21 07:15 Sample Site Brachial, left 06/27/21 07:15 ABG pH 7.49 (7.35-7.45) H 06/27/21 07:15 ABG pCO2 29.9 mmHg (35-45) L 06/27/21 07:15 ABG pO2 74.7 mmHg (80.0-100.0) L 06/27/21 07:15 ABG HCO3 22.8 mmol/L (22-26) 06/27/21 07:15 ABG O2 Saturation 96.9 06/27/21 07:15 ABG Base Excess -0.3 mmol/L (-2.0-2.0) 06/27/21 07:15 Juan Test N/a 06/27/21 07:15 A-a O2 Gradient 4.6 mmHg (5-10) L 06/27/21 07:15 Hematocrit 23.4 % (42-52) L 06/27/21 07:15 Hgb O2 Saturation 92.6 % (95-100) L 06/27/21 07:15 Carboxyhemoglobin 3.5 %THgb (0.4-20.1) 06/27/21 07:15 Methemoglobin 0.9 % (0.4-1.5) 06/27/21 07:15 Total Hemoglobin 7.6 g/dL (14-18) L 06/27/21 07:15 Sodium 140.0 mmol/L (131-143) 06/27/21 07:15 Potassium 5.4 mmol/L (3.5-5.0) H 06/27/21 07:15 Glucose 172.0 mg/dL (70-115) H 06/27/21 07:15 Ionized Calcium Not Reportable 06/27/21 07:15 O2 Delivery Device Room air 06/27/21 07:15 FiO2 21.0 % 06/27/21 07:15 Electric Razor Assembler ID Amh 06/27/21 07:15 Sodium 138 mmol/L (136-145) 06/27/21 07:11 Potassium 5.5 mmol/L (3.5-5.1) H 06/27/21 07:11 Chloride 98 mmol/L (98-107) 06/27/21 07:11 Carbon Dioxide 22 mmol/L (22-29) 06/27/21 07:11 Anion Gap 23.5 (5-19) H 06/27/21 07:11 BUN 47 mg/dL (6-20) H 06/27/21 07:11 Creatinine 7.0 mg/dL (0.7-1.2) H* 06/27/21 07:11 GFR Calculation 9.1 mL/min (90-130) L 06/27/21 07:11 Glucose 131 mg/dL (65-115) H 06/27/21 07:11 POC Glucose 157 mg/dL (70-110) H 06/27/21 07:00 Calculated Osmolality 300 mOsm/kg (285-295) H 06/27/21 07:11 Lactic Acid 3.8 mmol/L (0.5-2.2) H 06/27/21 07:11 Calcium 10.2 mg/dL (8.5-10.5) 06/27/21 07:11 Magnesium 2.0 mg/dL (1.7-2.3) 06/27/21 07:11 Total Bilirubin 0.4 mg/dL (0.15-1.2) 06/27/21 07:11 AST 15 U/L (0-40) 06/27/21 07:11 ALT 7 U/L (0-41) 06/27/21 07:11 Alkaline Phosphatase 111 IU/L (40-130) 06/27/21 07:11 Creatine Kinase 109 U/L (39-308) 06/27/21 07:11 Troponin T Baseline 110 ng/L (0-15) H* 06/27/21 07:11 Troponin T 120 Minute 102.6 ng/L (0-15) H 06/27/21 10:23 Delta Troponin T -7.4 ABS# (0-10) L 06/27/21 10:23 C-Reactive Protein 7.9 mg/L (0.0-4.9) H 06/27/21 07:11 Total Protein 7.6 g/dL (6.6-8.7) 06/27/21 07:11 Albumin 4.3 g/dL (3.5-5.2) 06/27/21 07:11 Globulin 3.3 g/dL (1.3-4.6) 06/27/21 07:11 Lipase 44 U/L (13-60) 06/27/21 07:11 Urine Color Yellow (Yellow) 06/27/21 10:17 Urine Appearance Clear (CLEAR) 06/27/21 10:17 Urine pH 9 (5-7) H 06/27/21 10:17 Ur Specific Preston 1.010 (1.005-1.030) 06/27/21 10:17 Urine Protein Trace (Negative) 06/27/21 10:17 Urine Glucose (UA) 1+ (Normal) H 06/27/21 10:17 Urine Ketones Negative (Negative) 06/27/21 10:17 Urine Blood Neg (Negative) 06/27/21 10:17 Urine Nitrate Negative (Negative) 06/27/21 10:17 Urine Bilirubin Neg (Negative) 06/27/21 10:17 Prot Sulfosalicylic Acd Negative (Negative) 06/27/21 10:17 Urine Urobilinogen Norm mg/dL (Negative) 06/27/21 10:17 Ur Leukocyte Esterase Negative (Negative) 06/27/21 10:17 Urine RBC None /hpf (0-2) 06/27/21 10:17 Urine WBC None /hpf (0-5) 06/27/21 10:17 Ur Squamous Epith Cells 0-4 /hpf (0-5) H 06/27/21 10:17 Amorphous Sediment Not Reportable 06/27/21 10:17 Urine Bacteria Trace /hpf (NONE) 06/27/21 10:17 Random Vancomycin 13.6 ug/mL (20.0-40.0) L 06/27/21 07:11 Serum Ketones Negative (Negative) 06/27/21 07:11 Critical Care Time Critical Care Time: Critical Care Time: Yes Total Critical Care Time: 90 Attestation: The high probability of a clinically significant, sudden or life threatening deterioration of the patient's renal cardiovascular respiratory system(s) required my full and direct attention, intervention and personal management. The critical care time is as shown. This time is in addition to time spent performing any reported procedures but includes the following: [x] Data and vital sign review and interpretation [x] Patient assessment, examination and intervention [x] Documentation [x] Medication orders and management Discharge Plan Discharge Patient Disposition: Admitted As Inpatient Admit Provider: Lidia Lema Clinical Impression: Severe sepsis due to methicillin resistant Staphylococcus aureus (MRSA) with acute organ dysfunction, Alport syndrome, Hemodialysis catheter infection, ESRD (end stage renal disease) on dialysis, Severe mitral regurgitation, Tricuspid regurgitation, MRSA bacteremia, Acute respiratory failure with hypoxia, Anemia in chronic kidney disease, Elevated troponin Condition: Stable Coding Level of Care Code ED Bleach Plant Operator for Glendy Sanchez
--- NOTE | 2021-06-27 06:58 | ECG_ITS ---
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
--- NOTE | 2021-06-27 06:58 | XR_ITS ---
WS: [id number] XR chest 1V portable [id number] REASON FOR EXAM: dyspnea/cough FINDINGS: Left internal jugular dialysis catheter with tip in the superior vena cava. The heart is enlarged. There are reticular interstitial lung opacities in both lower lung farley. Findings are relatively un changed compared to the previous examination of 06/23/2021. No other interval change or new finding. XR/XR chest 1V portable [id number] IMPRESSION: Lower lung field opacities relatively unchanged compared to the previous examin ation. This could represent subacute pneumonitis or pulmonary edema.
[2021-06-27 07:03] LABS: Glucose Point of Care 157 mg/dL (70-110)
[2021-06-27 07:28] LABS: ABG PCO2 29.9 mmHg (35-45); ABG PH Result 7.49 (7.35-7.45); Alveolar-Arterial Oxygen Gradi 4.6 mmHg (5-10); Arterial Blood Gas Hematocrit 23.4 % (42-52); Base Excess ABG -0.3 mmol/L (-2.0-2.0); Blood Gas Operator Identificat AMH; Blood Gas Sample Site Brachial, left; Blood Gas Sample Type Arterial; Carboxyhemoglobin 3.5 %THgb (0.4-20.1); HCO3 ABG 22.8 mmol/L (22-26); HGB O2 Sat 92.6 % (95-100); Methemoglobin 0.9 % (0.4-1.5); Oxygen Device ROOM AIR; Oxygen Saturation ABG 96.9; PO2 ABG 74.7 mmHg (80.0-100.0); Potassium Level - ABG 5.4 mmol/L (3.5-5.0); Total Hemoglobin 7.6 g/dL (14-18)
[2021-06-27 07:30] LABS: Basophils # 0.2 10^3/uL (0.0-0.1); Basophils % 2.1 %; Eosinophils # 0.4 10^3/uL (0.0-0.8); Eosinophils % 4.3 %; Hematocrit 27.2 % (42.0-52.0); Hemoglobin 8.1 g/dL (11.7-16.6); Lymphocytes # 1.4 10^3/uL (0.8-4.8); Lymphocytes % 14.1 %; Mean Corpuscular HGB Conc 29.8 g/dL (30.0-36.0); Mean Corpuscular Hemoglobin 27.8 pg (28.0-34.0); Mean Corpuscular Volume 93.5 fl (80-94); Mean Platelet Volume 9.8 fL (7.4-10.4); Monocytes # 0.4 10^3/uL (0.2-0.9); Monocytes % 4.4 %; Neutrophils # 7.43 10^3/uL (1.8-7.7); Neutrophils % 74.4 %; Nucleated Red Blood Cells % 0 %; Platelet Count 328 10^3/cmm (130-400); Red Blood Count 2.91 10^6/uL (4.1-5.3); Red Cell Distribution Width 22.5 % (12.1-15.1)
[2021-06-27 07:35] LABS: Ketone (Acetest) Serum Negative (Negative); Lactic Sepsis W/Reflex 3.8 mmol/L (0.5-2.2); Vancomycin Random 13.6 ug/mL (20.0-40.0)
[2021-06-27 07:36] LABS: Alanine Aminotransferase 7 U/L (0-41); Albumin Level 4.3 g/dL (3.5-5.2); Alkaline Phosphatase 111 IU/L (40-130); Anion Gap 23.5 (5-19); Aspartate Amino Transferase 15 U/L (0-40); Blood Urea Nitrogen 47 mg/dL (6-20); C Reactive Protein 7.9 mg/L (0.0-4.9); Calcium 10.2 mg/dL (8.5-10.5); Carbon Dioxide 22 mmol/L (22-29); Chloride 98 mmol/L (98-107); Creatine Phosphokinase 109 U/L (39-308); Globulin 3.3 g/dL (1.3-4.6); Glomerular Filtration Rate 9.1 mL/min (90-130); Glucose 131 mg/dL (65-115); Lipase 44 U/L (13-60); Osmolality Calculated 300 mOsm/kg (285-295); Potassium 5.5 mmol/L (3.5-5.1); Sodium 138 mmol/L (136-145); Total Bilirubin 0.4 mg/dL (0.15-1.2); Total Protein 7.6 g/dL (6.6-8.7)
[2021-06-27 07:39] LABS: Troponin(5th) Baseline 110 ng/L (0-15)
--- NOTE | 2021-06-27 07:54 | PC.NURSE ---
Creatinine 7.0 and baseline troponin [address] merchant at 0760
[2021-06-27] MEDS: LORazepam 2 mg/mL INJ 1 mL IVP ×2 (08:11→09:16)
[2021-06-27] MEDS: sodium chloride 0.9% 1,000 ML 999 ML IV (08:14)
[2021-06-27] MEDS: vancomycin 1,000 MG in sodium chloride 0.9% 250 ML 250 MG IV ×2 (09:01→20:58)
[2021-06-27 09:02] LABS: Reflex Lactate Order REFLEX LACTIC ORDERD
[2021-06-27] MEDS: sodium chloride 0.9% 2,721.54 ML 2721.54 ML IV (09:02)
--- NOTE | 2021-06-27 09:15 | CT_ITS ---
WS: [id number] CT HEAD NONCONTRAST HISTORY: AMS TECHNIQUE: Contiguous axial imaging performed through the brain in 2.5 mm imaging. Bone and soft tiss ue windows. Sagittal and coronal reformats reviewed. All CT scans at [facility] use at least one of these dose optimization techniques: automated exposure control; mA and/or kV adjustment per pa tient size (includes targeted exams where dose is matched to clinical indication); or iterative recon struction. DLP: 2379.18 mGy.cm COMPARISON: None available. Nondiagnostic evaluation of the brain. Image quality is significantly degraded. There is also motion artifact. There is no large hemorrhage. Small areas of hemorrhage and sulcal effacement cannot be excluded. No ventriculomegaly. No inferior displacement of cerebellar tonsils. Paranasal sinuses: Poorly visualized. Mastoid air cells: Cannot exclude abnormality. Calvarium and scalp: Cannot exclude abnormality. CT/CT head wo con* [id number] IMPRESSION: 1. Nondiagnostic evaluation of the brain. 2. No large areas of hemorrhage and no midline shift.
[2021-06-27] MEDS: calcium chloride 10% Syr 10 mL 1 GM IVP (09:20)
[2021-06-27] MEDS: sodium bicarbonate 8.4% 1 mEq/mL 50mL Syr 100 MEQ IVP (09:21)
--- NOTE | 2021-06-27 09:48 | P.CONIM_ITS ---
Providers/Reason For Consult Consulting Physician/Specialty*: Nephro Reason for Consult*: ESRD mgmt Primary Care Provider: Kumar Carvajal MD History of Present Illness History of Present Illness Thank you consultation, today had the pleasure reviewing this 35-year-old gentleman. Currently he is quite confused, the history is taken from emergency room staff and also bedside RN and EMR. He is known to me from recent hospitalization, where he was admitted with MRSA bacteremia related to the hemodialysis catheter, right forearm abscess found to have echogenic density the posterior mitral leaflet, posterior tricuspid valve suggestive of endocarditis. He underwent incision and drainage of the forearm abscess, removal of hemodialysis catheter, placement of a right groin hemodialysis catheter, clinical improvement, clean blood cultures, subsequent replacement of right chest hemodialysis catheter with a plan to continue intrav enous vancomycin. On dialysis in the outpatient clinic he became hypotensive and confused, he subsequently he was transferred to our facility. Due to quite profound hypotension, he was started on Levophed. Labs are notable for a potassium 5.5, obviously elevated BUN/creatinine. His last hemodialysis session was on Wednesday. No overt signs of fluid overload at this time. Review of Systems General: Reports: ROS unobtainable due to medical condition Medications/Allergies Home Medications Medication Instructions Recorded Confirmed Last Taken Type minoxidil 10 mg tablet 5 mg PO DAILY 04/09/21 06/07/21 Unknown History pantoprazole 40 mg tablet,delayed 40 mg PO DAILY 04/09/21 06/07/21 Unknown History release carvedilol 25 mg tablet 25 mg PO BID 06/07/21 06/07/21 Unknown History nifedipine 90 mg tablet,extended 90 mg PO DAILY 06/07/21 06/07/21 Unknown History release clonidine HCl 0.1 mg tablet 0.1 mg PO TID 30 Days #90 tab 06/19/21 Unknown Rx ferrous gluconate 324 mg (37.5 mg 324 mg PO BIDWM 30 Days #60 tab 06/19/21 Unknown Rx iron) tablet hydralazine 50 mg tablet 50 mg PO TID 30 Days #90 tab 06/19/21 Unknown Rx sevelamer carbonate 800 mg tablet 1,600 mg PO TID 30 Days #180 tab 06/19/21 Unknown Rx vancomycin 1,000 mg intravenous See Rx Instructions .ROUTE 06/19/21 Unknown Rx injection .COMPLEX #10 ea Allergies Allergy/AdvReac Type Severity Reaction Status Date / Time strawberry Allergy Mild ALGY-Rash Verified 06/18/21 16:08 PFSH Acute PFSH: Medical History (Updated 06/23/21 @ 06:06 by Barry Holloway DO) Alport syndrome Dialysis AV fistula malfunction Diastolic heart failure Hemodialysis catheter infection HTN (hypertension) MRSA bacteremia Surgical History (Updated 06/19/21 @ 10:42 by Luis Worthington MD) Fistula Left forearm S/P hemodialysis catheter insertion (06/19/21) Multiple Status post dialysis Family History Other ESRD (end stage renal disease) Social History Smoking and tobacco status: never smoked Alcohol intake: never Other details last substance use: Marijuana. Denies any other. Denies IVDU. Lives independently: Yes Household members: spouse Marital status: Current occupational status: unemployed Vitals/I&O/Wt Last Vital Signs Pulse 88 06/27/21 09:23 Resp 28 H 06/27/21 09:23 BP 93/75 06/27/21 09:23 Pulse Ox 93 06/27/21 09:23 06/26/21 06/27/21 06/27/21 22:59 06:59 14:59 Intake Total 3727.89 / 3727.89 Balance 3727.89 / 3727.89 Weight last 48 hrs Weight 90.718 kg Physical Exam Narrative: Constitutional: AMS HEENT: Wet mucosa, no jvp, non icteric Lungs: Bilaterally clear without discernible wheeze, rales in all lung zones CVS: S1 S2, no murmurs Abdo: Soft, BS ok Ext 4: Minimal edema, peripheral perfusion with no cyanosis Data : 06/27/21 07:11 06/27/21 07:11 A&P Assessment and plan (1) ESRD (end stage renal disease) on dialysis: Status: Acute Plan 1. ESRD Potassium slightly elevated but no other acute indication for hemodialysis. Given that he is in apparent septic shock again, will request removal of the tunneled dialysis catheter and placement of a temporary hemodialysis catheter. We will proceed with dialysis later on this afternoon, 2K bath, ultrafiltration of only 1 L. Daily evaluation for additional need for dialysis, however, will likely plan to continue M, W, F schedule. Dose medication for GFR less than 15 2. Chemistry Hyperkalemia; potassium only slightly elevated, noncritical, continue to follow, dialysis later on will definitively bring this down. Other chemistry looks relatively stable. 3. Septic shock Recent hospitalization for MRSA bacteremia including infective endocarditis, incision and drainage of right forearm. Blood cultures currently sent and pending. Permacath will be removed, tip to be sent for culture Continue vancomycin, management per medical team. 4. Anemia hemoglobin 8.1, transfuse hemoglobin less than 7. We will check iron levels. Maco Chang MD Nephrology [phone] Patient seen and examined via telemedicine, with the assistance of the bedside RN > 25 min spent in evaluation and mgmt of patient Coding Level of Care Code Acute Commercial Management Accountant for Glendy Fwd Diagnoses ESRD (end stage renal disease) on dialysis N18.6; Z99.2
[2021-06-27] MEDS: piperacillin-tazobactam 3.375 GM in sodium chloride 0.9% (plus) 50 ML IV (10:18)
--- NOTE | 2021-06-27 10:56 | XR_ITS ---
WS: [id number] PORTABLE CHEST HISTORY: dyspnea/cough COMPARISON: 06/27/2021 Endotracheal tube in good position. Tip ends 2 to 3 cm above the cathy. Nasogastric tube also in goo d position. The tip extends towards the antrum of the stomach. Patient has a dual lumen large bore di alysis catheter. The tips of the catheters appear slightly retracted as compared to the prior examina tion. This change in position of the lumens could be overly exaggerated by the lordotic technique. Lung volumes are decreased. No pneumonia. Mild pulmonary edema.. No pleural effusion or pneumothorax. Cardiac size: Mildly enlarged cardiac silhouette. Mediastinum/Aorta: Normal mediastinum. No osseous abnormality seen. XR/XR chest 1V portable [id number] IMPRESSION: 1. Nasogastric and endotracheal tubes are in good position. 2. Cardiomegaly, mild. 3. Dialysis catheter tips appears slightly retracted but this may be due to th e lordotic positioning of the thorax and not a true retraction. 4. No pneumonia. 5. Very mild pulmonary edema.
[2021-06-27 11:24] LABS: Troponin 5 2HR 102.6 ng/L (0-15); Troponin 5 2HR Delta -7.4 ABS# (0-10)
--- NOTE | 2021-06-27 11:26 | PC.NURSE ---
2hr trop 102.[address] Rivas.
--- NOTE | 2021-06-27 11:27 | USCV_ITS ---
Link Ann Age: 35 Gender: M : 1985 Exam Date: 06/27/2021 12:10 Ordering Phys: Lidia Lema MD Technologist: Exam Location[place] [facility] [place]ication: KNOWN ENDOCARDITIS BP: / HR: Rhythm: Sinus Technical Quality: MEASUREMENTS (Male / Female) Normal Values DOPPLER AV Peak Velocity 118.0 cm/s LVOT Peak Velocity 79.0 cm/s TR Peak Velocity 242.0 cm/s TR Peak Gradient 23.4 mmHg FINDINGS Left Ventricle Normal left ventricular size. LV systolic function is normal with EF of 55-60%. No regional wall motion abnormalities. Moderate concentric left ventricular hypertrophy Right Ventricle The right ventricle is normal in size and function. Right Atrium The right atrium is dilated Left Atrium The left atrium is dilated Mitral Valve Mitral valve is thickened without significant stenosis. There is severe eccenteric mitral regurgitation. Possible vegetation seen on atrial aspect of the posterior leaflet. Aortic Valve Aortic valve is thickened. Images suspicious for perivalvular/aortic root abscess. No significant stenosis. There is no significant aortic regurgitation. Tricuspid Valve Severe, eccenteric tricuspid regurgitation is seen. No vegetation is seen Pulmonic Valve Grossly normal Pericardium Normal pericardium without effusion. Aorta Suspicion for aortic root/ mumtaz aortic valve abscess CONCLUSIONS LV systolic function is normal with EF of 55-60% Moderate LVH Biatrial enlargement Severe eccenteric mitral regurgitation. Possible vegetation seen on atrial aspect of the posterior leaflet Aortic valve is thickened. Images suspicious for perivalvular/aortic root abscess. Recommend further imaging with CTA/BALTAZAR to evaluate No aortic significant stenosis Severe tricuspid regurgitation Compared to prior echocardiogram from 06/08/2021, suspicion for aortic root/mumtaz aortic root abscess is new. Recommend assessing with CTA/BALTAZAR. Mauro Gonzalez MD (Electronically Signed) Final Date: 27 June 2021 14:19 S
--- NOTE | 2021-06-27 11:28 | P.HP_ITS ---
Providers/Chief Complaint Primary Care Provider: Kumar Carvajal MD Chief Complaint: AMS ABD PAIN History of Present Illness Link Ann is a 35 year old male Medications/Allergies Home Medications Medication Instructions Recorded Confirmed Last Taken Type minoxidil 10 mg tablet 5 mg PO DAILY 04/09/21 06/07/21 Unknown History pantoprazole 40 mg tablet,delayed 40 mg PO DAILY 04/09/21 06/07/21 Unknown History release carvedilol 25 mg tablet 25 mg PO BID 06/07/21 06/07/21 Unknown History nifedipine 90 mg tablet,extended 90 mg PO DAILY 06/07/21 06/07/21 Unknown History release clonidine HCl 0.1 mg tablet 0.1 mg PO TID 30 Days #90 tab 06/19/21 Unknown Rx ferrous gluconate 324 mg (37.5 mg 324 mg PO BIDWM 30 Days #60 tab 06/19/21 Unknown Rx iron) tablet hydralazine 50 mg tablet 50 mg PO TID 30 Days #90 tab 06/19/21 Unknown Rx sevelamer carbonate 800 mg tablet 1,600 mg PO TID 30 Days #180 tab 06/19/21 Unknown Rx vancomycin 1,000 mg intravenous See Rx Instructions .ROUTE 06/19/21 Unknown Rx injection .COMPLEX #10 ea Allergies Allergy/AdvReac Type Severity Reaction Status Date / Time strawberry Allergy Mild ALGY-Rash Verified 06/18/21 16:08 PFSH Acute PFSH: Medical History (Updated 06/23/21 @ 06:06 by Barry Holloway DO) Alport syndrome Dialysis AV fistula malfunction Diastolic heart failure Hemodialysis catheter infection HTN (hypertension) MRSA bacteremia Surgical History (Updated 06/19/21 @ 10:42 by Luis Worthington MD) Fistula Left forearm S/P hemodialysis catheter insertion (06/19/21) Multiple Status post dialysis Family History Other ESRD (end stage renal disease) Social History Smoking and tobacco status: never smoked Alcohol intake: never Other details last substance use: Marijuana. Denies any other. Denies IVDU. Lives independently: Yes Household members: spouse Marital status: Current occupational status: unemployed Vitals/I&O/Wt Last Vital Signs Pulse 88 06/27/21 09:23 Resp 29 H 06/27/21 10:23 BP 93/75 06/27/21 09:23 Pulse Ox 93 06/27/21 09:23 06/26/21 06/27/21 06/27/21 22:59 06:59 14:59 Intake Total 3727.89 / 3727.89 Balance 3727.89 / 3727.89 Weight last 48 hrs Weight 90.718 kg Data : 06/27/21 07:11 06/27/21 07:11 Other Labs: Radiology Impressions Head CT 06/27/21 09:15 IMPRESSION: 1. Nondiagnostic evaluation of the brain. 2. No large areas of hemorrhage and no midline shift. Portable CXR 06/27/21 07:29 IMPRESSION: Lower lung field opacities relatively unchanged compared to the previous exam ination. This could represent subacute pneumonitis or pulmonary edema. ? Laboratory Results WBC 10.0 10^3/uL (4.0-10.0) 06/27/21 07:11 RBC 2.91 10^6/uL (4.1-5.3) L 06/27/21 07:11 Hgb 8.1 g/dL (11.7-16.6) L 06/27/21 07:11 Hct 27.2 % (42.0-52.0) L 06/27/21 07:11 MCV 93.5 fl (80-94) 06/27/21 07:11 MCH 27.8 pg (28.0-34.0) L 06/27/21 07:11 MCHC 29.8 g/dL (30.0-36.0) L 06/27/21 07:11 RDW 22.5 % (12.1-15.1) H 06/27/21 07:11 Plt Count 328 10^3/cmm (130-400) 06/27/21 07:11 MPV 9.8 fL (7.4-10.4) 06/27/21 07:11 Neut % (Auto) 74.4 % 06/27/21 07:11 Lymph % (Auto) 14.1 % 06/27/21 07:11 [place] % (Auto) 4.4 % 06/27/21 07:11 Eos % (Auto) 4.3 % 06/27/21 07:11 Baso % (Auto) 2.1 % 06/27/21 07:11 Neut # (Auto) 7.43 10^3/uL (1.8-7.7) 06/27/21 07:11 Lymph # (Auto) 1.4 10^3/uL (0.8-4.8) 06/27/21 07:11 [place] # (Auto) 0.4 10^3/uL (0.2-0.9) 06/27/21 07:11 Eos # (Auto) 0.4 10^3/uL (0.0-0.8) 06/27/21 07:11 Baso # (Auto) 0.2 10^3/uL (0.0-0.1) H 06/27/21 07:11 Nucleated RBC % (auto) 0 % 06/27/21 07:11 Nucleated RBCs # 0.0 /100WBC 06/27/21 07:11 Specimen Type Arterial 06/27/21 07:15 Sample Site Brachial, left 06/27/21 07:15 ABG pH 7.49 (7.35-7.45) H 06/27/21 07:15 ABG pCO2 29.9 mmHg (35-45) L 06/27/21 07:15 ABG pO2 74.7 mmHg (80.0-100.0) L 06/27/21 07:15 ABG HCO3 22.8 mmol/L (22-26) 06/27/21 07:15 ABG O2 Saturation 96.9 06/27/21 07:15 ABG Base Excess -0.3 mmol/L (-2.0-2.0) 06/27/21 07:15 Juan Test N/a 06/27/21 07:15 A-a O2 Gradient 4.6 mmHg (5-10) L 06/27/21 07:15 Hematocrit 23.4 % (42-52) L 06/27/21 07:15 Hgb O2 Saturation 92.6 % (95-100) L 06/27/21 07:15 Carboxyhemoglobin 3.5 %THgb (0.4-20.1) 06/27/21 07:15 Methemoglobin 0.9 % (0.4-1.5) 06/27/21 07:15 Total Hemoglobin 7.6 g/dL (14-18) L 06/27/21 07:15 Sodium 140.0 mmol/L (131-143) 06/27/21 07:15 Potassium 5.4 mmol/L (3.5-5.0) H 06/27/21 07:15 Glucose 172.0 mg/dL (70-115) H 06/27/21 07:15 O2 Delivery Device Room air 06/27/21 07:15 FiO2 21.0 % 06/27/21 07:15 Car Distributor ID Amh 06/27/21 07:15 Sodium 138 mmol/L (136-145) 06/27/21 07:11 Potassium 5.5 mmol/L (3.5-5.1) H 06/27/21 07:11 Chloride 98 mmol/L (98-107) 06/27/21 07:11 Carbon Dioxide 22 mmol/L (22-29) 06/27/21 07:11 Anion Gap 23.5 (5-19) H 06/27/21 07:11 BUN 47 mg/dL (6-20) H 06/27/21 07:11 Creatinine 7.0 mg/dL (0.7-1.2) H* 06/27/21 07:11 GFR Calculation 9.1 mL/min (90-130) L 06/27/21 07:11 Glucose 131 mg/dL (65-115) H 06/27/21 07:11 POC Glucose 157 mg/dL (70-110) H 06/27/21 07:00 Calculated Osmolality 300 mOsm/kg (285-295) H 06/27/21 07:11 Lactic Acid 3.8 mmol/L (0.5-2.2) H 06/27/21 07:11 Calcium 10.2 mg/dL (8.5-10.5) 06/27/21 07:11 Magnesium 2.0 mg/dL (1.7-2.3) 06/27/21 07:11 Total Bilirubin 0.4 mg/dL (0.15-1.2) 06/27/21 07:11 AST 15 U/L (0-40) 06/27/21 07:11 ALT 7 U/L (0-41) 06/27/21 07:11 Alkaline Phosphatase 111 IU/L (40-130) 06/27/21 07:11 Creatine Kinase 109 U/L (39-308) 06/27/21 07:11 Troponin T Baseline 110 ng/L (0-15) H* 06/27/21 07:11 Troponin T 120 Minute 102.6 ng/L (0-15) H 06/27/21 10:23 Delta Troponin T -7.4 ABS# (0-10) L 06/27/21 10:23 C-Reactive Protein 7.9 mg/L (0.0-4.9) H 06/27/21 07:11 Total Protein 7.6 g/dL (6.6-8.7) 06/27/21 07:11 Albumin 4.3 g/dL (3.5-5.2) 06/27/21 07:11 Globulin 3.3 g/dL (1.3-4.6) 06/27/21 07:11 Lipase 44 U/L (13-60) 06/27/21 07:11 Random Vancomycin 13.6 ug/mL (20.0-40.0) L 06/27/21 07:11 Serum Ketones Negative (Negative) 06/27/21 07:11 Laboratory Tests 06/25/21 11:47 Coronavirus 229E (PCR) Not detected SARS-CoV-2 (PCR) Not detected Coding Level of Care Code Acute 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
--- NOTE | 2021-06-27 11:49 | P.CONIM_ITS ---
Providers/Reason For Consult Consulting Physician/Specialty*: General Surgery Dr. Worthington Reason for Consult*: Dialysis catheter exchange Attending Physician: Lidia Lema MD Primary Care Provider: Kumar Carvajal MD History of Present Illness History of Present Illness Link Ann is a 35 year old male who was scheduled for exchange of his tunneled hemodialysis catheter that I had placed on 06/18/2021. Unfortunately patient presented to the emergency room confused, hypoxic and had to be intubated and is currently on Levophed. He is assumed to be in sepsis with possible cardiac failure. Nephrology would like to have his current catheter removed and a temporary dialysis catheter placed. Review of Systems General: Reports: ROS unobtainable due to endotracheal tube and ROS unobtainable due to mental status Medications/Allergies Home Medications Medication Instructions Recorded Confirmed Last Taken Type minoxidil 10 mg tablet 5 mg PO DAILY 04/09/21 06/07/21 Unknown History pantoprazole 40 mg tablet,delayed 40 mg PO DAILY 04/09/21 06/07/21 Unknown History release carvedilol 25 mg tablet 25 mg PO BID 06/07/21 06/07/21 Unknown History nifedipine 90 mg tablet,extended 90 mg PO DAILY 06/07/21 06/07/21 Unknown History release clonidine HCl 0.1 mg tablet 0.1 mg PO TID 30 Days #90 tab 06/19/21 Unknown Rx ferrous gluconate 324 mg (37.5 mg 324 mg PO BIDWM 30 Days #60 tab 06/19/21 Unknown Rx iron) tablet hydralazine 50 mg tablet 50 mg PO TID 30 Days #90 tab 06/19/21 Unknown Rx sevelamer carbonate 800 mg tablet 1,600 mg PO TID 30 Days #180 tab 06/19/21 Unknown Rx vancomycin 1,000 mg intravenous See Rx Instructions .ROUTE 06/19/21 Unknown Rx injection .COMPLEX #10 ea Allergies Allergy/AdvReac Type Severity Reaction Status Date / Time strawberry Allergy Mild ALGY-Rash Verified 06/18/21 16:08 Current Medications Generic Name Dose Route Start Last Admin Trade Name Freq PRN Reason Stop Dose Admin Fentanyl 2,500 mcg/ Sodium 250 mls @ 0 mls/hr 06/27/21 10:45 06/27/21 11:02 Chloride IV 25 mcg/hr .Q0M VASHTI 2.5 mls/hr Administration Protocol Per Protocol PFSH Acute PFSH: Medical History (Updated 06/27/21 @ 13:02 by Lidia Lema MD) Alport syndrome Dialysis AV fistula malfunction Diastolic heart failure Hemodialysis catheter infection History of intravenous drug abuse HTN (hypertension) Jugular vein occlusion, right MRSA bacteremia Surgical History (Updated 06/27/21 @ 13:02 by Lidia Lema MD) Fistula Left forearm History of incision and drainage (06/11/21) right forearm abscess S/P hemodialysis catheter insertion -Tunneled HD catheter placed in [place], [place] removed 06/10/21 -Right femoral HD line placed 06/13/21 -Left IJ tunneled catheter placed 06/18/21 Family History Other ESRD (end stage renal disease) Social History Smoking and tobacco status: never smoked Alcohol intake: never Other details last substance use: Marijuana. Denies any other. Denies IVDU. Lives independently: Yes Household members: spouse Marital status: Current occupational status: unemployed Vitals/I&O/Wt Last Vital Signs Pulse 88 06/27/21 09:23 Resp 29 H 06/27/21 10:23 BP 93/75 06/27/21 09:23 Pulse Ox 93 06/27/21 09:23 06/26/21 06/27/21 06/27/21 22:59 06:59 14:59 Intake Total 3727.89 / 3727.89 Balance 3727.89 / 3727.89 Weight last 48 hrs Weight 200 lb Physical Exam Narrative: HEENT: Normocephalic, intubated, left IJ tunneled hemodialysis catheter in place, left IJ central line in place Eye: Sclera /conjunctiva normal Respiratory and chest: Bilateral clear breath sounds on auscultation Cardiovascular: Normal S1 and S2 heart sounds Abdomen: Soft to palpation, slightly distended, no guarding or rigidity Neurological: Not assessed as patient is intubated Skin: Intact, no lesions appreciated on gross exam Data : 06/27/21 07:11 06/27/21 12:15 A&P Assessment and plan (1) ESRD (end stage renal disease) on dialysis: 35-year-old male with history of ESRD and multiple dialysis catheter placement who presents with altered mental status and hypoxia. Patient was scheduled for exchange of his tunneled catheter that had been pulled out but due to his current status after discussion with nephrology we'll plan for removal of current tunneled catheter and placement of a temporary dialysis catheter. Tip cultures to be sent Status: Chronic Consult Attestations Medical Necessity Statement: As per attending physician Coding Level of Care Code Acute [facility] Facilities Specialist for [facility] Fwd Diagnoses ESRD (end stage renal disease) on dialysis N18.6; Z99.2
--- NOTE | 2021-06-27 12:03 | PM.HP ---
Providers/Chief Complaint Admitting Physician: Lidia Lema MD Primary Care Provider: Kumar Carvajal MD Chief Complaint: AMS ABD PAIN History of Present Illness Link Ann is a 35 year old male who presented to the emergency room via EMS with altered mental status and hypotension. He was arousable upon arrival but ED provider was unable to get much information. 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 Right IJ hemodialysis catheter was infected and he also had an abscess in his right forearm. 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 He has had multiple dialysis catheter removals and replacements over the last month because of the MRSA. Last cultures prior to discharge on June 19 were negative for MRSA. These cultures were dated 06/14/2021. He did receive hemodialysis on Wednesday and was given a dose of vancomycin according to [facility]. Further details about acute events leading to ER visit are not known or obtainable presently. No family has called, come in or been reachable thus far. Patient was on arrival hypotensive with systolic pressures as low as 70. Initial heart rate was indeed but he had an episode of significant hypoxemia and bradycardia to as low as 37 in the emergency room. This occurred after he had gone for CT of his head. CT of the head did not show any acute abnormalities noncontrasted. Given the acute clinical change, he was prepared for intubation. Prior to intubation he had an episode of emesis. He was suctioned right away and emesis was not seen in the airway. He was subsequently intubated. At the time of my evaluation he is intubated and sedated. He has been started on Levophed to maintain MAP of 65. He received a dose of vancomycin. Nephrology has been consulted and is aware of the patient. Surgery has been consulted and is aware of the patient. Review of Systems General: Reports: ROS unobtainable due to endotracheal tube and ROS unobtainable due to medical condition Medications/Allergies Home Medications Medication Instructions Recorded Confirmed Last Taken Type minoxidil 10 mg tablet 5 mg PO DAILY 04/09/21 06/07/21 Unknown History pantoprazole 40 mg tablet,delayed 40 mg PO DAILY 04/09/21 06/07/21 Unknown History release carvedilol 25 mg tablet 25 mg PO BID 06/07/21 06/07/21 Unknown History nifedipine 90 mg tablet,extended 90 mg PO DAILY 06/07/21 06/07/21 Unknown History release clonidine HCl 0.1 mg tablet 0.1 mg PO TID 30 Days #90 tab 06/19/21 Unknown Rx ferrous gluconate 324 mg (37.5 mg 324 mg PO BIDWM 30 Days #60 tab 06/19/21 Unknown Rx iron) tablet hydralazine 50 mg tablet 50 mg PO TID 30 Days #90 tab 06/19/21 Unknown Rx sevelamer carbonate 800 mg tablet 1,600 mg PO TID 30 Days #180 tab 06/19/21 Unknown Rx vancomycin 1,000 mg intravenous See Rx Instructions .ROUTE 06/19/21 Unknown Rx injection .COMPLEX #10 ea lactulose 10 gram/15 mL oral 30 ml PO DAILY PRN 06/27/21 06/27/21 Unknown History solution Allergies Allergy/AdvReac Type Severity Reaction Status Date / Time strawberry Allergy Mild ALGY-Rash Verified 06/18/21 16:08 Additional Medication Information Medications above are from last discharge on 06/19/21. 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 Suggestive of endocarditis. Features of severe mitral regurgitation with a regurgitant fraction of 69.6% Moderately severe tricuspid regurgitation Normal LV size ejection fraction. Biatrial enlargement, right worse than the left. No pericardial effusion. Possible small patent foramen ovale. HTN (hypertension) Jugular vein occlusion, right MRSA bacteremia (05/2021) Severe mitral regurgitation Tricuspid regurgitation Surgical History (Updated 06/27/21 @ 14:16 by Lidia Lema MD) Fistula Left forearm, non-functioning 05/2021 History of incision and drainage (06/11/21) right forearm abscess S/P hemodialysis catheter insertion -Tunneled right IJ HD catheter placed in [place], [place] removed 06/10/21 -Right femoral HD line placed 06/13/21 -Left IJ tunneled catheter placed 06/18/21 with same day removal of right femoral temporary HD catheter Family History (Updated 06/27/21 @ 13:13 by Lidia Lema MD) Other Alport syndrome ESRD (end stage renal disease) Social History Smoking and tobacco status: never smoked Alcohol intake: never Other details last substance use: Marijuana. Denies any other. Denies IVDU. Lives independently: Yes Household members: spouse Marital status: Current occupational status: unemployed Other PFSH information: PFSH not updated/unobtainable from patient: due to endotracheal tube and due to medical condition Vitals/I&O/Wt Last Vital Signs Pulse 88 06/27/21 09:23 Resp 29 H 06/27/21 10:23 BP 93/75 06/27/21 09:23 Pulse Ox 93 06/27/21 09:23 06/26/21 06/27/21 06/27/21 22:59 06:59 14:59 Intake Total 3727.89 / 3727.89 Balance 3727.89 / 3727.89 Weight last 48 hrs Weight 90.718 kg Physical Exam Narrative: Constitutional: Intubated, sedated HEENT: Normocephalic, atraumatic, pupils are equal bilaterally, slightly muddy sclera, conjunctive injected, nasopharynx with some clear rhinorrhea, visible oropharynx with dry membranes, ET tube in place Neck: Supple Respiratory: Coarse breath sounds, decreased at both bases, no wheezes Cardiovascular: Regular rhythm, JVD to angle of jaw, no murmurs gallops or rubs heart sounds are distant, capillary refill 2-3's, no thrill noted in the left forearm where he reportedly has an AV fistula Abdomen: Soft, protuberant, not tympanic, positive but decreased bowel sounds : Blue catheter noted, normal external genitalia Extremities: 1+ pitting edema bilaterally Skin: Evidence of prior invasive line in the right groin right upper chest and current line in the left upper chest with some dried blood and evidence of migration about 1-1/2 to 2 cm from the scab line, no surrounding erythema or purulent discharge, not fluctuant. Has sutured incision site to right forearm that appears to be healing well. It is indurated but without redness, erythema, fluctuance or expression of pus. There are soft tissue lobulations throughout the right forearm without any associated warmth, redness, erythema, fluctuance or thrill noted Neuro: With stimulation does move all extremities, no abnormal movements Psych: To assess due to current clinical condition Urinary Catheter Management: Blue: Cath Placed During This Visit: yes Urethral Indwelling: Yes Reason for Continuing Indwelling Catheter: Accurate Measurement of Urinary Output in Critically Ill Patients Urinary Catheter Date of Insertion: 06/27/21 Urinary Catheter Time of Insertion: 10:20 Sepsis: Is patient septic: Yes Focused sepsis exam performed: Yes Focused sepsis exam: Intubated, sedated, on 75% FiO2 with sats of 91%, heart rate 80s, systolic pressure 86 with a MAP of 68. Not tachycardic, distant heart sounds, JVD, coarse breath sounds decreased at both bases, abdomen distended but not tympanic, soft, no mottling noted to the lower extremities, capillary refill 2-3 seconds. Dialysis catheter in place on the left with scabbing and evidence of migration in the line outward, no surrounding erythema or purulence appreciated, left forearm sutures are intact, no redness or purulence/drainage noted Date exam was performed: 06/27/21 Time exam was performed: 11:18 Data : 06/27/21 07:11 06/27/21 07:11 Other Labs: Radiology Impressions Head CT 06/27/21 09:15 IMPRESSION: 1. Nondiagnostic evaluation of the brain. 2. No large areas of hemorrhage and no midline shift. Chest X-Ray 06/27/21 10:56 IMPRESSION: 1. Nasogastric and endotracheal tubes are in good position. 2. Cardiomegaly, mild. 3. Dialysis catheter tips appears slightly retracted but this may be due to the lordotic positioning of the thorax and not a true retraction. 4. No pneumonia. 5. Very mild pulmonary edema. Portable CXR 06/27/21 07:29 IMPRESSION Lower lung field opacities relatively unchanged compared to the previous examination. This could represent subacute pneumonitis or pulmonary edema. Laboratory Results WBC 10.0 10^3/uL (4.0-10.0) 06/27/21 07:11 RBC 2.91 10^6/uL (4.1-5.3) L 06/27/21 07:11 Hgb 8.1 g/dL (11.7-16.6) L 06/27/21 07:11 Hct 27.2 % (42.0-52.0) L 06/27/21 07:11 MCV 93.5 fl (80-94) 06/27/21 07:11 MCH 27.8 pg (28.0-34.0) L 06/27/21 07:11 MCHC 29.8 g/dL (30.0-36.0) L 06/27/21 07:11 RDW 22.5 % (12.1-15.1) H 06/27/21 07:11 Plt Count 328 10^3/cmm (130-400) 06/27/21 07:11 MPV 9.8 fL (7.4-10.4) 06/27/21 07:11 Neut % (Auto) 74.4 % 06/27/21 07:11 Lymph % (Auto) 14.1 % 06/27/21 07:11 [place] % (Auto) 4.4 % 06/27/21 07:11 Eos % (Auto) 4.3 % 06/27/21 07:11 Baso % (Auto) 2.1 % 06/27/21 07:11 Neut # (Auto) 7.43 10^3/uL (1.8-7.7) 06/27/21 07:11 Lymph # (Auto) 1.4 10^3/uL (0.8-4.8) 06/27/21 07:11 [place] # (Auto) 0.4 10^3/uL (0.2-0.9) 06/27/21 07:11 Eos # (Auto) 0.4 10^3/uL (0.0-0.8) 06/27/21 07:11 Baso # (Auto) 0.2 10^3/uL (0.0-0.1) H 06/27/21 07:11 Nucleated RBC % (auto) 0 % 06/27/21 07:11 Nucleated RBCs # 0.0 /100WBC 06/27/21 07:11 Specimen Type Arterial 06/27/21 07:15 Sample Site Brachial, left 06/27/21 07:15 ABG pH 7.49 (7.35-7.45) H 06/27/21 07:15 ABG pCO2 29.9 mmHg (35-45) L 06/27/21 07:15 ABG pO2 74.7 mmHg (80.0-100.0) L 06/27/21 07:15 ABG HCO3 22.8 mmol/L (22-26) 06/27/21 07:15 ABG O2 Saturation 96.9 06/27/21 07:15 ABG Base Excess -0.3 mmol/L (-2.0-2.0) 06/27/21 07:15 Juan Test N/a 06/27/21 07:15 A-a O2 Gradient 4.6 mmHg (5-10) L 06/27/21 07:15 Hematocrit 23.4 % (42-52) L 06/27/21 07:15 Hgb O2 Saturation 92.6 % (95-100) L 06/27/21 07:15 Carboxyhemoglobin 3.5 %THgb (0.4-20.1) 06/27/21 07:15 Methemoglobin 0.9 % (0.4-1.5) 06/27/21 07:15 Total Hemoglobin 7.6 g/dL (14-18) L 06/27/21 07:15 Sodium 140.0 mmol/L (131-143) 06/27/21 07:15 Potassium 5.4 mmol/L (3.5-5.0) H 06/27/21 07:15 Glucose 172.0 mg/dL (70-115) H 06/27/21 07:15 O2 Delivery Device Room air 06/27/21 07:15 FiO2 21.0 % 06/27/21 07:15 Attendant Coin Operated Laundry ID Amh 06/27/21 07:15 Sodium 138 mmol/L (136-145) 06/27/21 07:11 Potassium 5.5 mmol/L (3.5-5.1) H 06/27/21 07:11 Chloride 98 mmol/L (98-107) 06/27/21 07:11 Carbon Dioxide 22 mmol/L (22-29) 06/27/21 07:11 Anion Gap 23.5 (5-19) H 06/27/21 07:11 BUN 47 mg/dL (6-20) H 06/27/21 07:11 Creatinine 7.0 mg/dL (0.7-1.2) H* 06/27/21 07:11 GFR Calculation 9.1 mL/min (90-130) L 06/27/21 07:11 Glucose 131 mg/dL (65-115) H 06/27/21 07:11 POC Glucose 157 mg/dL (70-110) H 06/27/21 07:00 Calculated Osmolality 300 mOsm/kg (285-295) H 06/27/21 07:11 Lactic Acid 3.8 mmol/L (0.5-2.2) H 06/27/21 07:11 Calcium 10.2 mg/dL (8.5-10.5) 06/27/21 07:11 Magnesium 2.0 mg/dL (1.7-2.3) 06/27/21 07:11 Total Bilirubin 0.4 mg/dL (0.15-1.2) 06/27/21 07:11 AST 15 U/L (0-40) 06/27/21 07:11 ALT 7 U/L (0-41) 06/27/21 07:11 Alkaline Phosphatase 111 IU/L (40-130) 06/27/21 07:11 Creatine Kinase 109 U/L (39-308) 06/27/21 07:11 Troponin T Baseline 110 ng/L (0-15) H* 06/27/21 07:11 Troponin T 120 Minute 102.6 ng/L (0-15) H 06/27/21 10:23 Delta Troponin T -7.4 ABS# (0-10) L 06/27/21 10:23 C-Reactive Protein 7.9 mg/L (0.0-4.9) H 06/27/21 07:11 Total Protein 7.6 g/dL (6.6-8.7) 06/27/21 07:11 Albumin 4.3 g/dL (3.5-5.2) 06/27/21 07:11 Globulin 3.3 g/dL (1.3-4.6) 06/27/21 07:11 Lipase 44 U/L (13-60) 06/27/21 07:11 Random Vancomycin 13.6 ug/mL (20.0-40.0) L 06/27/21 07:11 Serum Ketones Negative (Negative) 06/27/21 07:11 A&P Assessment and plan (1) Severe sepsis due to methicillin resistant Staphylococcus aureus (MRSA) with acute organ dysfunction: Evidenced by lethargy, hypotension, lactic acidosis, lack of response to attempted fluids, need for pressor support, acute respiratory failure, bradycardia, elevated INR, hyperglycemia, known MRSA endocarditis with recent staph bacteremia and overall clinical presentation. Difficult to fully rule out septic shock given the multitude of medications that he is on and his comorbid medical conditions but at this time I think he is primarily severe sepsis with multiorgan dysfunction on the verge of developing septic shock. Status: Acute (2) Acute respiratory failure with hypoxia: As measured by peripheral saturations and ABG, necessitating intubation, currently requiring 80% FiO2. In part due to volume overload from it being planned dialysis today but also due to impact of sepsis and cardiopulmonary function. He had an episode of vomiting that preceded intubation. No visualized emesis at the cords during intubation but cannot rule out aspiration. Had negative Covid PCR on 06/25/2021 in preparation for planned outpatient dialysis catheter removal and replacement for today. Status: Acute (3) Endocarditis due to Staphylococcus: Blood cultures from 06/14/2021 were negative for MRSA, remains on IV vancomycin outpatient via hemodialysis prior to this admission. CRP has decreased from 116 at the end of May to seven today Status: Acute (4) ESRD (end stage renal disease) on dialysis: Last hemodialysis was on Wednesday, confirmed with dialysis clinic, currently with hyperkalemia Due for dialysis today Status: Chronic (5) Elevated troponin: Values similar to last month, suspect type II process in the setting of CKD acute infection Status: Acute (6) Abscess of right forearm: Status post I&D and debridement last month, sutures remain in place and looks to be healing but still with surrounding induration as described Status: Acute (7) Diastolic heart failure: Chronic, acute component present on admission related to above Status: Chronic Qualifiers: Heart failure chronicity: acute on chronic Qualified Code(s): I50.33 - Acute on chronic diastolic (congestive) heart failure (8) Severe mitral regurgitation: Status: Acute (9) Tricuspid regurgitation: Status: Acute Qualifiers: Cardiac valve disease etiology: nonrheumatic Qualified Code(s): I36.1 - Nonrheumatic tricuspid (valve) insufficiency (10) Anemia in chronic kidney disease: Stable hemoglobin compared to prior values, iron was 19 on 06/09/2021 Status: Acute (11) Alport syndrome: Status: Chronic Plan Inpatient admission IV vancomycin and Zosyn Continue pressor support to maintain a MAP greater than 65 Received 1 L of normal saline in the emergency room further IV fluids not administered secondary to hypoxemia, known dialysis patient volume overloaded Recheck potassium and address as needed Plan is for dialysis later today Nephrology consultation for assistance with management of chronic kidney disease and need for hemodialysis Surgical consultation for for planned removal of current dialysis catheter and placement of a new one today Reviewed case briefly with infectious disease who agrees with current antibiotics Blood cultures have been collected Send catheter tip for culture Repeat lactic acid Stat echocardiogram to evaluate valves in particular Serial cardiac enzymes Telemetry monitoring especially while hyperkalemic Pulmonary toilet Maintain respiratory support, weaning as able Sedation as needed Monitor right forearm, sutures will need to be removed soon I would imagine, surgery was done by Dr. Coelho Reportedly has an AV fistula, nonfunctioning in the left forearm Do not attempt any line placements in the right IJ as it is occluded Central venous line has been placed in the left IJ to assist with critical care management Blue catheter was placed given critical illness, unknown by me if he makes urine Thus far unable to get in touch with family and no one has called Subcu heparin for DVT prophylaxis PPI for GI prophylaxis Blood sugars were noted to be elevated so I have ordered sliding scale insulin, not a known diabetic, will check A1c tomorrow Check iron level again, may need replacement, unknown if on erythropoetin Supportive care otherwise Disposition will depend on clinical course Full code per prior records Attestations Medical Necessity Statement*: Anticipated stay greater than 2 midnights inpatient with multiple critical issues as noted above. Currently intubated and going for emergent surgery. Requires IV antibiotics and critical supportive care as described Critical Care Time: The high probability of a clinically significant, sudden or life threatening deterioration of the patient's cardiovascular and respiratory system(s) required my full and direct attention, intervention and personal management. The critical care time is as shown. This time is in addition to time spent performing any reported procedures but includes the following: [x] Data and vital sign review and interpretation [x] Patient assessment, examination and intervention [x] Documentation [x] Medication orders and management [x] Preparing for surgery Critical Care Time (min): 90 Coding Level of Care Code Acute Header Dock for Chg Fwd Diagnoses Severe sepsis due to methicillin resistant Staphylococcus aureus (MRSA) with acute organ dysfunction A41.02; R65.20 Acute respiratory failure with hypoxia J96.01 Severe mitral regurgitation I34.0 Tricuspid regurgitation I36.1 Cardiac valve disease etiology: nonrheumatic Endocarditis due to Staphylococcus I33.0; B95.8 ESRD (end stage renal disease) on dialysis N18.6; Z99.2 Diastolic heart failure I50.33 Heart failure chronicity: acute on chronic Alport syndrome Q87.81 Anemia in chronic kidney disease N18.9; D63.1 Abscess of right forearm L02.413 Elevated troponin R77.8
[2021-06-27 12:07] LABS: ABG PCO2 49.4 mmHg (35-45); ABG PH Result 7.35 (7.35-7.45); Alveolar-Arterial Oxygen Gradi 56.3 mmHg (5-10); Arterial Blood Gas Hematocrit 22.2 % (42-52); Base Excess ABG 1.2 mmol/L (-2.0-2.0); Blood Gas Operator Identificat AMH; Blood Gas Sample Site Brachial, right; Blood Gas Sample Type Arterial; Carboxyhemoglobin 2.3 %THgb (0.4-20.1); HCO3 ABG 27.1 mmol/L (22-26); Ionized Calcium Level - ABG 1.2 mmol/L (1.1-1.4); Methemoglobin 1.1 % (0.4-1.5); Oxygen Device VENT; Oxygen Saturation ABG 93.1; PO2 ABG 72.3 mmHg (80.0-100.0); Potassium Level - ABG 6.2 mmol/L (3.5-5.0); Total Hemoglobin 7.2 g/dL (14-18)
[2021-06-27 12:20] LABS: Add Urine Microscopic? YES; Bilirubin Urine Neg (Negative); Blood Urine Neg (Negative); Glucose Urine UA 1+ (Normal); Ketones Urine Negative (Negative); Leukocyte Esterase Urine Negative (Negative); Nitrate Urine Negative (Negative); Protein Urine Trace (Negative); Urine Appearance Clear (CLEAR); Urine Color Yellow (Yellow); Urobilinogen Urine Norm (Negative); pH Urine 9 (5-7)
[2021-06-27 12:21] LABS: Sulfosalicylic Acid Urine Negative (Negative)
[2021-06-27 12:22] LABS: Add Urine Culture? No; Bacteria Urine TRACE /hpf; Squamous Epithelial Cell Urine 0-4 /hpf (0-5)
--- NOTE | 2021-06-27 12:45 | XR_ITS ---
WS: [id number] XR chest 1V portable [id number] REASON FOR EXAM: Central line placement FINDINGS: Endotracheal tube retracted somewhat compared to the examination of 1026 today, position between the head of the clavicles at this time. Right internal jugular dialysis catheter remains in position with tip in the superior vena cava. This catheter has been retracted somewhat compared to the examination of 06/23/2021. There appears to be in the addition of a second transverse left jugular central line. The tip of this catheter lies between the split end of the dialysis catheter at the junction of the left innominate vein and the superior vena cava The nasogastric tube is not visualized but is beyond the fundus of the stomach. Significant enlargement of the cardiac silhouette in a somewhat globular configuration. There were some hazy and reticular densities in the lower lung farley on the examination of 06/23/2021. These findings have essentially resolved. XR/XR chest 1V portable [id number] IMPRESSION: There is been some retraction of the endotracheal tube as noted above. There is also been some retraction of the right jugular dialysis catheter. A se cond central line is been added through the left subclavian vein. This catheter could be advanced 5 to 6 cm for more optimal positioning. Resolution of previous lung opacities. Configuration of the heart suggests pericardial effusion. Patient is undergoing echocardiography today which should resolve this issue.
--- NOTE | 2021-06-27 12:46 | XR_ITS ---
WS: [id number] LEFT SHOULDER: 1 VIEW(S) TECHNIQUE: Single AP view shoulder. HISTORY: central line placement COMPARISON: None available. Central line has been placed. The catheter enters the LEFT neck to the jugular vein. The catheter ove rlaps the dialysis catheter. Resection of the distal LEFT clavicle. Large dialysis catheter noted overlying the LEFT thorax. XR/XR shoulder LT 1V [id number] IMPRESSION: 1. LEFT central line enters through the LEFT jugular vein. 2. The LEFT central line is overlapping and partially obscured by the dialysis catheter.
[2021-06-27 12:48] LABS: INR 1.38 (0.8-1.2); Partial Thromboplastin Time 32.3 SECONDS (23.9-36.7)
[2021-06-27 12:50] LABS: Lactate (Lactic Acid level) 1.6 mmol/L (0.5-2.2)
[2021-06-27 12:51] LABS: Anion Gap 18.4 (5-19); Blood Urea Nitrogen 50 mg/dL (6-20); C Reactive Protein 6.7 mg/L (0.0-4.9); Calcium 9.7 mg/dL (8.5-10.5); Carbon Dioxide 26 mmol/L (22-29); Chloride 102 mmol/L (98-107); Glomerular Filtration Rate 8.9 mL/min (90-130); Glucose 93 mg/dL (65-115); Magnesium 2.1 mg/dL (1.7-2.3); Osmolality Calculated 303 mOsm/kg (285-295); Phosphorus 5.6 mg/dL (2.5-4.5); Potassium 6.4 mmol/L (3.5-5.1); Sodium 140 mmol/L (136-145); Uric Acid 5.5 mg/dL (3.4-7.0)
--- NOTE | 2021-06-27 12:58 | ECG_ITS ---
[facility] Test Date: 2021-06-27 Pat Name: Link Ann Department: Room: Gender: Male Vegetable Tier: : 1985 Requested By: Remi Pedro Order Number: [id number] Reading MD: GLENYS MERCADO Measurements Intervals [place] Rate: 86 P: 44 WI: 174 QRS: 77 QRSD: 103 T: 62 QT: 383 QTc: 461 Interpretive Statements SINUS RHYTHM Compared to ECG 06/27/2021 07:17:18 No significant changes Electronically Signed On 06-27-2021 22:56:13 HANDBOOK WRITER by GLENYS MERCADO [email or web address]
--- NOTE | 2021-06-27 13:58 | CT_ITS ---
WS: [id number] CTA THORACIC AORTA WITH AND WITHOUT CONTRAST. HISTORY: sepsis, endocarditis, possible aortic root abscess on echo TECHNIQUE: CT imaging of the thorax is performed with and without contrast. After noncontrast imaging is performed, CT angiogram is performed during injection of Omnipaque 350; 95 mL IV.. Sagittal and c oronal reconstructions, sagittal and coronal MIP imaging is submitted. All CT scans at [facility] use at least one of these dose optimization techniques: automated exposure control; mA and/or kV adjustment per patient size (includes targeted exams where dose is matched to clinical indication); or iterative reconstruction. DLP: 2354.27 mGy.cm COMPARISON: 06/08/2021. Patient is intubated and there is a nasogastric tube with tip extending into the stomach. LEFT centra l line with tip in the mid SVC. There is extensive soft tissue edema and anasarca throughout the chest. No significant pleural effusi on. Dense areas of atelectasis bilaterally at the lung bases. There is also haziness and groundglass attenuation throughout the remaining lungs from edema. Cardiac chambers are markedly enlarged. There is marked dilatation of the RIGHT atrium. No significan t flattening or bowing of the septum. There is LEFT ventricular hypertrophy. No pericardial effusion at any significance. There is good contrast enhancement of the aorta but this study is not performed without ECG gating therefore there is significant motion artifact. Valve leaflets cannot be adequatel y evaluated nor the aortic root on a CT angiogram without gating. No abscess is identified. The aorti c root and ascending aorta are normal size. Pulmonary artery is dilated measuring up to 3.2 cm. No pu lmonary embolism is identified. On the delayed imaging there is no residual contrast within an absces s pocket. Mediastinal and hilar soft tissue stranding from edema. Mediastinal and hilar lymph nodes present and these are probably reactive at the hilar regions. There is hepatic enlargement and hepatic congestion. There is circumferential edema surrounding the p ortal veins and hepatic veins. Contrast regurgitation into hepatic veins. CT/CT angio chest [id number] IMPRESSION: 1. Without ECG gating there is significant motion artifact obscuring the aorti c root and the ascending aorta. Abscess cannot be excluded without ECG gating. ECG gating is not available at this institution at this time. For further evalu ation of the aortic root BALTAZAR should be considered. 2. Diffuse soft tissue edema and anasarca. 3. Extensive hepatomegaly with congestion and tricuspid regurgitation into hep atic veins. 4. Dilated RIGHT heart structures. Marked dilatation of the RIGHT atrium. 5. There is also moderate dilatation of the LEFT heart. 6. Near complete bilateral lower lobar collapse. 7. Abdominal ascites. Similar to the prior study from 06/08/2021.
--- NOTE | 2021-06-27 14:05 | PC.NURSE ---
Report given and care transferred to Surgery RN and team at 1335.
--- NOTE | 2021-06-27 14:12 | P.OP_ITS ---
Operative Report Date of procedure: June 27, 2021 Pre-op diagnosis: 1. Chronic renal failure 2. Malpositioned tunneled hemodialysis catheter in the left internal jugular vein with cuff exposed Post-op diagnosis: same Procedure done: 1. Exchange of tunneled hemodialysis catheter to temporary nontunneled dialysis catheter in the left internal jugular vein 2. Fluoroscopic guidance and interpretation for exchange of catheter Specimens removed/disposition: Catheter tip culture sent Surgeon: Luis Worthington Anesthesia: General (Patient is intubated in ER) Estimated blood loss (mL): 10 Brief History: This is a 35-year-old male whose catheter got pulled out with the cuff exposed and therefore needed exchange. He was scheduled for exchange of his tunneled hemodialysis catheter today but presented to the ER with altered mental status, hypoxia and hypotension and was subsequently intubated and placed on Levophed. Since patient was already intubated in the ER decision was made to exchange the catheter in ER rather than OR under fluoroscopy. Procedure: The patient's left neck was prepped and draped in a sterile manner. Using 11 blade the neck incision where the catheter entered the left internal jugular vein was opened, the catheter was dissected free from the surrounding subcutaneous tissue using hemostats and partially removed. The catheter was clamped and cut and the exteriorized portion of the catheter was removed. A guidewire was passed under fluoroscopy through the existing hemodialysis catheter into the right ventricle and the catheter was removed. A 20 cm long 12 Chinese temporary dialysis catheter was passed over the guidewire into the distal SVC and the catheter was removed. Both ports withdrew blood and flushed easily. The catheter was sutured to the skin using 3-0 silk suture and the skin incision was closed around the catheter with 3-0 silk suture. Sterile dressings were applied. Patient tolerated the procedure well
--- NOTE | 2021-06-27 14:39 | SC_ITS ---
WS: [id number] INTRAOPERATIVE TECHNIQUE: 2 Spot fluoroscopic images for intraoperative purposes. FLUOROSCOPY TIME: 33.7 seconds CLINICAL INFORMATION: TEMPORARY DIALYSIS CATHETER COMPARISON: None. FINDINGS: RIGHT central venous dialysis catheters with tips in the SVC. Partially visualized enteric tube. SC/C-arm FL for CVA [id number] IMPRESSION: Images obtained for intraoperative purposes.
[2021-06-27] MEDS: iodixanol 320 mg/mL 100mL Btl IV (14:59)
[2021-06-27 15:28] LABS: Troponin 5 6HR 114.7 ng/L (0-15); Troponin 5 6HR Delta 4.7 ng/L (0-12)
--- NOTE | 2021-06-27 16:17 | P.CONIM_ITS ---
Providers/Reason For Consult Consulting Physician/Specialty*: Mauro Gonzalez MD/ Cardiology Reason for Consult*: Endocarditis Requesting Physician: Dr Lema Attending Physician: Lidia Lema MD Primary Care Provider: Kumar Carvajal MD History of Present Illness History of Present Illness Link Ann is a 35 year old male with past medical history of end-stage renal disease on dialysis, hypertension who had recent endocarditis secondary to hemodialysis catheter infection presented today with altered mental status and hypotension. He had MRSA bacteremia last month with severe mitral and tricuspid regurgitation. Patient is currently intubated and sedated. He was put on Levophed to maintain the MAPs. Transthoracic echocardiogram was repeated that showed similar findings as before however there is suspicion for aortic root/aortic perivalvular abscess. CTA was performed however was inconclusive. Cardiology is consulted to perform BALTAZAR and for help with management of patient. Review of Systems General: Reports: ROS unobtainable due to endotracheal tube and ROS unobtainable due to medical condition Medications/Allergies Home Medications Medication Instructions Recorded Confirmed Last Taken Type minoxidil 10 mg tablet 5 mg PO DAILY 04/09/21 06/07/21 Unknown History pantoprazole 40 mg tablet,delayed 40 mg PO DAILY 04/09/21 06/07/21 Unknown History release carvedilol 25 mg tablet 25 mg PO BID 06/07/21 06/07/21 Unknown History nifedipine 90 mg tablet,extended 90 mg PO DAILY 06/07/21 06/07/21 Unknown History release clonidine HCl 0.1 mg tablet 0.1 mg PO TID 30 Days #90 tab 06/19/21 Unknown Rx ferrous gluconate 324 mg (37.5 mg 324 mg PO BIDWM 30 Days #60 tab 06/19/21 Unknown Rx iron) tablet hydralazine 50 mg tablet 50 mg PO TID 30 Days #90 tab 06/19/21 Unknown Rx sevelamer carbonate 800 mg tablet 1,600 mg PO TID 30 Days #180 tab 06/19/21 Unknown Rx vancomycin 1,000 mg intravenous See Rx Instructions .ROUTE 06/19/21 Unknown Rx injection .COMPLEX #10 ea lactulose 10 gram/15 mL oral 30 ml PO DAILY PRN 06/27/21 06/27/21 Unknown History solution Allergies Allergy/AdvReac Type Severity Reaction Status Date / Time strawberry Allergy Mild ALGY-Rash Verified 06/18/21 16:08 Current Medications Generic Name Dose Route Start Last Admin Trade Name Freq PRN Reason Stop Dose Admin Fentanyl 2,500 mcg/ Sodium 250 mls @ 0 mls/hr 06/27/21 10:45 06/27/21 11:02 Chloride IV 25 mcg/hr .Q0M VASHTI 2.5 mls/hr Administration Protocol Per Protocol PFSH Acute 2 PFSH: Medical History Alport syndrome Anemia in chronic kidney disease Dialysis AV fistula malfunction left forearm Diastolic heart failure with LVH 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 Suggestive of endocarditis. Features of severe mitral regurgitation with a regurgitant fraction of 69.6% Moderately severe tricuspid regurgitation Normal LV size ejection fraction. Biatrial enlargement, right worse than the left. No pericardial effusion. Possible small patent foramen ovale. HTN (hypertension) Jugular vein occlusion, right MRSA bacteremia (05/2021) Severe mitral regurgitation Tricuspid regurgitation Surgical History Fistula Left forearm, non-functioning 05/2021 History of incision and drainage (06/11/21) right forearm abscess S/P hemodialysis catheter insertion -Tunneled right IJ HD catheter placed in [place], [place] removed 06/10/21 -Right femoral HD line placed 06/13/21 -Left IJ tunneled catheter placed 06/18/21 with same day removal of right femoral temporary HD catheter Family History Other Alport syndrome ESRD (end stage renal disease) Social History Smoking and tobacco status: never smoked Alcohol intake: never Other details last substance use: Marijuana. Denies any other. Denies IVDU. Lives independently: Yes Household members: spouse Marital status: Current occupational status: unemployed Vitals/I&O/Wt Last Vital Signs Pulse 85 06/27/21 15:21 Resp 20 H 06/27/21 15:22 BP 93/75 06/27/21 09:23 Pulse Ox 94 06/27/21 15:22 06/27/21 06/27/21 06/27/21 06:59 14:59 22:59 Intake Total 3727.89 / 3727.89 Balance 3727.89 / 3727.89 Weight last 48 hrs Weight 200 lb Physical Exam Narrative: GENERAL: Patient is intubated and sedated NECK: No jugular vein distension. [] HEENT: No cyanosis. No icterus. No pallor. [] HEART: Regular S1 and S2. Has grade 3/6 systolic murmur[] LUNGS: Clear ABDOMEN: Soft CENTRAL NERVOUS SYSTEM:Intubated EXTREMITIES: Lower extremities with 1+ edema bilaterally. Pulses palpable in the lower extremities Urinary Catheter Management: Blue: Cath Placed During This Visit: yes Urethral Indwelling: Yes Reason for Continuing Indwelling Catheter: Accurate Measurement of Urinary Output in Critically Ill Patients Urinary Catheter Date of Insertion: 06/27/21 Urinary Catheter Time of Insertion: 10:20 Data : 06/27/21 07:11 06/27/21 12:15 Micro: Microbiology 06/27/21 13:00 Gram Stain - Final Sputum - Endotracheal Tube Aspirate A&P Assessment and plan (1) Alport syndrome: Status: Chronic (2) Acute respiratory failure with hypoxia: Status: Acute (3) Severe sepsis due to methicillin resistant Staphylococcus aureus (MRSA) with acute organ dysfunction: Status: Acute (4) Severe mitral regurgitation: Status: Acute (5) Tricuspid regurgitation: Status: Acute Qualifiers: Cardiac valve disease etiology: nonrheumatic Qualified Code(s): I36.1 - Nonrheumatic tricuspid (valve) insufficiency (6) 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 TTE was unchanged for mitral and tricuspid valves however there is suspicion for aortic root abscess. We tried to rule it out with CTA however it was nonconclusive. Plan for transesophageal echocardiogram. I tried reaching patient's family however they did not continuous pickling line pickler helper the phone. Given emergen t nature of the diagnosis, we will proceed with the procedure at this time. Continue antibiotics per ICU team. Maintain MAP over 65 mmHg Patient will need to be transferred to tertiary care center/center with CT surgery availability Thank you for involving us with care of this patient. We will continue to follow. Please call with questions. Coding Level of Care Code Acute System Development Manager for [facility] [employer] Diagnoses Alport syndrome Q87.81 Acute respiratory failure with hypoxia J96.01 Severe sepsis due to methicillin resistant Staphylococcus aureus (MRSA) with acute organ dysfunction A41.02; R65.20 Severe mitral regurgitation I34.0 Tricuspid regurgitation I36.1 Cardiac valve disease etiology: nonrheumatic Endocarditis due to Staphylococcus I33.0; B95.8 Hemodialysis catheter infection T82.7XXD Encounter type: subsequent encounter
[2021-06-27] MEDS: sodium bicarbonate 8.4% 1 mEq/mL 50mL Syr 25 MEQ IVP (16:48)
[2021-06-27] MEDS: calcium gluconate 0.9% NaCL 1 GM/50 ML PREMIX IV (16:48)
[2021-06-27 17:32] LABS: Glucose Point of Care 67 mg/dL (70-110)
[2021-06-27 18:41] LABS: Glucose Point of Care 73 mg/dL (70-110)
[2021-06-27] MEDS: heparin 5,000 unit/mL INJ 1 mL 5000 UNIT SUBCUT (19:19)
--- NOTE | 2021-06-27 19:34 | PC.NURSE ---
Vital signs scanned into chart.
--- NOTE | 2021-06-27 19:35 | PC.NURSE ---
Pt was transported to and from [place] by this RN and Elva Mattson RN. upon arrival back into room, pt had run of bradycardia and Dr. Rivas alerted. Orders from Dr Rivas were to intubate pt. Sequence as follows. 1005 bagging by BVM initiated, SpO2 67%, HR 69 1007 pt vomited during initial attempt at intubation, BP 98/59 Succs 140mg given 1008 Etoidate 40mg given 1008 pt intubated 1008 tube measuring 22 @ cheek. 0.5 mg atropine given 1009. initial HR 34. HR 77 after admin. 1012 BP 104/65 OG tube placed 1014 16 Fr vyas placed 1014 Second 12 lead obtained 1020 Zosyn was started @1018 and completed @ 1022 10 Vec and 50 propofol given 1044 by Provider During central line placement 100 propofol given @1157 and 1219 under supervision of provider. Verced drip increased to 4 mc/min and a bolos of 4 mg over 3 minutes initiated PRIOR TO TRANSFER TO [place] THEN ICU 10mg of Rocuronium given by DR Lema. ALL MEDICATION WASTE WITNESSED BY CODY Pedro RN
[2021-06-27 19:42] LABS: Glucose Point of Care 78 mg/dL (70-110)
--- NOTE | 2021-06-27 19:49 | PC.NURSE ---
This nurse spent one on one critical care time with pt from 0700 to approx 1530
[2021-06-27] MEDS: ipratropium-albuterol 3 mL Neb INHALATION (20:44)
[2021-06-27] MEDS: piperacillin-tazobactam 3.375 GM in dextrose 5% (plus) 50 ML IV (20:57)
[2021-06-27] MEDS: heparin, porcine 1,000 unit/mL INJ 10 mL 10000 UNIT HE (23:22)
[2021-06-28] VITALS (43 sets, daily range): BP systolic 139–196; BP diastolic 89–142; PULSE 77–104; RESP 6–25; TEMP 36.5–36.9; O2SAT 87–100
[2021-06-28] MEDS: ipratropium-albuterol 3 mL Neb INHALATION ×3 (03:55→20:10)
[2021-06-28] MEDS: heparin 5,000 unit/mL INJ 1 mL 5000 UNIT SUBCUT (05:06)
[2021-06-28 05:17] LABS: Basophils # 0.1 10^3/uL (0.0-0.1); Basophils % 1.2 %; Eosinophils # 0.4 10^3/uL (0.0-0.8); Eosinophils % 4.8 %; Lymphocytes # 1.1 10^3/uL (0.8-4.8); Lymphocytes % 14.5 %; Mean Corpuscular HGB Conc 30.4 g/dL (30.0-36.0); Mean Corpuscular Hemoglobin 28.1 pg (28.0-34.0); Mean Corpuscular Volume 92.4 fl (80-94); Monocytes # 0.3 10^3/uL (0.2-0.9); Monocytes % 3.9 %; Neutrophils % 74.8 %; Nucleated Red Blood Cells % 0 %; Platelet Count 157 10^3/cmm (130-400); Red Blood Count 2.24 10^6/uL (4.1-5.3); Red Cell Distribution Width 22.5 % (12.1-15.1); White Blood Count 7.4 10^3/uL (4.0-10.0)
[2021-06-28 05:36] LABS: Blood Gas Allen Test Pos; Blood Gas Sample Type Arterial; Oxygen Device VENT
[2021-06-28 05:47] LABS: Alanine Aminotransferase 13 U/L (0-41); Albumin Level 3.7 g/dL (3.5-5.2); Alkaline Phosphatase 103 IU/L (40-130); Aspartate Amino Transferase 39 U/L (0-40); Blood Urea Nitrogen 29 mg/dL (6-20); Calcium 8.3 mg/dL (8.5-10.5); Carbon Dioxide 28 mmol/L (22-29); Creatinine Clr Calc Pharmacy 23.6098; Globulin 2.2 g/dL (1.3-4.6); Glomerular Filtration Rate 12.8 mL/min (90-130); Glucose 67 mg/dL (65-115); Total Bilirubin 0.3 mg/dL (0.15-1.2)
[2021-06-28 05:53] LABS: Arterial Blood Gas Hematocrit 20.4 % (42-52); Blood Gas Operator Identificat JB; Blood Gas Sample Site Radial, right; HCO3 ABG 30.9 mmol/L (22-26); PO2 ABG 60.3 mmHg (80.0-100.0)
[2021-06-28] MEDS: piperacillin-tazobactam 3.375 GM in dextrose 5% (plus) 50 ML IV ×2 (06:01→18:21)
[2021-06-28 06:07] LABS: Anion Gap 16.8 (5-19); Chloride 100 mmol/L (98-107); Hematocrit 20.7 % (42.0-52.0); Hemoglobin 6.3 g/dL (11.7-16.6); Osmolality Calculated 294 mOsm/kg (285-295); Potassium 4.8 mmol/L (3.5-5.1); Sodium 140 mmol/L (136-145)
--- NOTE | 2021-06-28 06:14 | PC.NURSE ---
Critical Hgb 6.3 and Hct 20.[address] Patton during telenephrology. t.o. for 2 units PRBC received
--- NOTE | 2021-06-28 06:40 | PC.NURSE ---
Dr. Chang notified this nurse if no major changes, the plan to do dialysis on wednesday
--- NOTE | 2021-06-28 06:44 | P.PN_ITS ---
Subjective Subjective: Events of the last 24 hours noted. Underwent TTE, CTA and subsequent BALTAZAR. Dialysis performed yesterday afternoon. Permacath removed, temporary line placed. Intubated, currently awake on the ventilator. Appears comfortable, off vasopressor agents. Small amount of urine output. Looks much more stable today. Anemia noted. Medications: Medication Review Details: Medications above are from last discharge on 06/19/21. Vitals/I&O/Wt Last Vital Signs Pulse 84 06/28/21 06:00 Resp 19 H 06/28/21 03:53 BP 149/106 06/28/21 06:00 Pulse Ox 95 06/28/21 06:00 06/27/21 06/27/21 06/28/21 14:59 22:59 06:59 Intake Total 3727.89 / 3727.89 350 / 4077.89 Output Total 0 / 0 30 / 30 Balance 3727.89 / 3727.89 0 / 3727.89 320 / 4047.89 Weight last 48 hrs Weight 92.079 kg Weight 90.718 kg Physical Exam Narrative: Constitutional: AMS HEENT: Wet mucosa, no jvp, non icteric Lungs: Bilaterally clear without discernible wheeze, rales in all lung zones CVS: S1 S2, no murmurs Abdo: Soft, BS ok Ext 4: Minimal edema, peripheral perfusion with no cyanosis Urinary Catheter Management: Blue: Cath Placed During This Visit: yes Urethral Indwelling: Yes Reason for Continuing Indwelling Catheter: Accurate Measurement of Urinary Output in Critically Ill Patients Urinary Catheter Date of Insertion: 06/27/21 Urinary Catheter Time of Insertion: 10:20 Data : 06/28/21 04:26 06/28/21 04:26 Micro: Microbiology 06/27/21 12:15 Blood Culture - Preliminary Blood SPECIMEN COLLECTED 06/27/21 12:15 Blood Culture - Preliminary Blood SPECIMEN COLLECTED 06/27/21 13:00 Gram Stain - Final Sputum - Endotracheal Tube Aspirate A&P Assessment and plan (1) ESRD (end stage renal disease) on dialysis: Status: Chronic Plan 1. ESRD Dialysis performed yesterday. No acute indication for dialysis today. We will continue to monitor closely over the weekend. continue M, W, F schedule. Dose medication for GFR less than 15 2. Chemistry looks stable 3. Septic shock Recent hospitalization for MRSA bacteremia including infective endocarditis, incision and drainage of right forearm. Blood cultures currently sent and pending. Permacath removed, tip to be sent for culture Continue vancomycin, management per medical team. 4. Anemia prbcs today Maco Chang MD Nephrology [phone] Patient seen and examined via telemedicine, with the assistance of the bedside RN > 25 min spent in evaluation and mgmt of patient Attestations Medical Necessity Statement*: esrd Coding Level of Care Code Acute Citrix Engineer for [facility] Fwd Diagnoses ESRD (end stage renal disease) on dialysis N18.6; Z99.2
--- NOTE | 2021-06-28 07:00 | PC.NURSE ---
ASSUMING CARE Patient mechanically ventilated, CMV mode, Fi02 30%, TV 500, RR 16, PEEP 8, 8.0 tube and 25 cm at the lip. Fentanyl drip running at 75 mcg/hour and zosyn running at 12.5 mL/hour. Patient follows commands and responds to questions nodding yes or no. Left CVL in place and patent. Left HD cath in place with dressing. Patient is sinus rhythm.
[2021-06-28 07:51] LABS: Total Protein 5.9 g/dL (6.6-8.7)
[2021-06-28 08:37] LABS: Glucose Point of Care 76 mg/dL (70-110)
[2021-06-28] MEDS: pantoprazole 40 mg SDV IVP (08:41)
--- NOTE | 2021-06-28 09:00 | PC.NURSE ---
0900 Patients mother called unit to speak with nurse. Nurse unavailable and with another patient at that time. RN attempted to contact her, telephone states that number is no longer in service.
--- NOTE | 2021-06-28 09:58 | P.PN_ITS ---
Subjective Subjective: Patient is awake, on the ventilator Vitals/I&O/Wt Last Vital Signs Pulse 83 06/28/21 08:49 Resp 20 H 06/28/21 08:51 BP 149/103 06/28/21 08:01 Pulse Ox 99 06/28/21 08:51 06/27/21 06/28/21 06/28/21 22:59 06:59 14:59 Intake Total 247.65 / 4325.54 350 / 4325.54 Output Total 0 30 30 / 30 Balance 247.65 / 4295.54 320 / 4295.54 Weight last 48 hrs Weight 203 lb Weight 200 lb Physical Exam Narrative: Left neck: Central line and temporary dialysis catheter in place. Dressings dry and intact Urinary Catheter Management: Blue: Cath Placed During This Visit: yes Urethral Indwelling: Yes Reason for Continuing Indwelling Catheter: Accurate Measurement of Urinary Output in Critically Ill Patients Urinary Catheter Date of Insertion: 06/27/21 Urinary Catheter Time of Insertion: 10:20 Data : 06/28/21 04:26 06/28/21 04:26 Micro: Microbiology 06/27/21 12:15 Blood Culture - Preliminary Blood SPECIMEN COLLECTED 06/27/21 12:15 Blood Culture - Preliminary Blood SPECIMEN COLLECTED 06/27/21 13:00 Gram Stain - Final Sputum - Endotracheal Tube Aspirate A&P Assessment and plan (1) S/P hemodialysis catheter insertion: Status post temporary dialysis catheter placement yesterday. Chest x-ray showed poor concern for inadequate positioning but the catheter had already been advanced up to the hub. Patient tolerated dialysis well yesterday as per nursing staff Plan for exchange to a tunneled hemodialysis catheter once cleared by nephrology and hospitalist service Status: Acute Attestations Medical Necessity Statement*: As per primary Coding Level of Care Code Acute Aerospace Stress Engineer for [facility] Fwd Diagnoses S/P hemodialysis catheter insertion Z99.2
[2021-06-28 10:22] LABS: Iron 46 ug/dL (59-158); Percent Saturation 22.5 % (20-50); Total Iron Binding Capacity 204 mcg/dl; Unsaturated Iron Binding 158 ug/dL (112-347)
--- NOTE | 2021-06-28 11:19 | P.PN_ITS ---
Subjective Subjective: Patient's overall condition has improved. He is off pressors. He is off sedation and is responding appropriately. Yesterday and underwent transesophageal echocardiogram that did not reveal aortic abscess. He did have severe mitral and tricuspid regurgitation. This was unchanged from prior tra nsesophageal echocardiogram 2 weeks ago. Vitals/I&O/Wt Last Vital Signs Pulse 86 06/28/21 10:00 Resp 16 06/28/21 10:00 BP 160/109 06/28/21 10:00 Pulse Ox 94 06/28/21 10:00 06/27/21 06/28/21 06/28/21 22:59 06:59 14:59 Intake Total 247.65 / 3975.54 350 / 4325.54 Output Total 0 / 0 30 / 30 Balance 247.65 / 3975.54 320 / 4295.54 Weight last 48 hrs Weight 203 lb Weight 200 lb Physical Exam Narrative: GENERAL: Patient is intubated and he is awake and responds appropriately NECK: No jugular vein distension. [] HEENT: No cyanosis. No icterus. No pallor. [] HEART: Regular S1 and S2. Has grade 3/6 systolic murmur[] LUNGS: Clear ABDOMEN: Soft CENTRAL NERVOUS SYSTEM:Intubated EXTREMITIES: Lower extremities with 1+ edema bilaterally. Pulses palpable in the lower extremities Urinary Catheter Management: Blue: Cath Placed During This Visit: yes Urethral Indwelling: Yes Reason for Continuing Indwelling Catheter: Accurate Measurement of Urinary Output in Critically Ill Patients Urinary Catheter Date of Insertion: 06/27/21 Urinary Catheter Time of Insertion: 10:20 Data : 06/28/21 04:26 06/28/21 04:26 Micro: Microbiology 06/27/21 12:15 Blood Culture - Preliminary Blood SPECIMEN COLLECTED 06/27/21 12:15 Blood Culture - Preliminary Blood SPECIMEN COLLECTED 06/27/21 13:00 Gram Stain - Final Sputum - Endotracheal Tube Aspirate A&P Assessment and plan (1) Alport syndrome: Status: Chronic (2) Acute respiratory failure with hypoxia: Status: Acute (3) Severe sepsis due to methicillin resistant Staphylococcus aureus (MRSA) with acute organ dysfunction: Status: Acute (4) Severe mitral regurgitation: Status: Acute (5) Tricuspid regurgitation: Status: Acute Qualifiers: Cardiac valve disease etiology: nonrheumatic Qualified Code(s): I36.1 - Nonrheumatic tricuspid (valve) insufficiency (6) 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 TTE was unchanged for mitral and tricuspid valves however there is suspicion for aortic root abscess. We tried to rule it out with CTA however it was nonconclusive. Transesophageal echocardiogram was eventually performed that did not reveal aortic abscess. Continue antibiotics per ICU team. His overall condition has improved. He is off pressors. Extubation planned today Once patient is extubated can discuss option of transferring to a tertiary care facility to be evaluated by CT surgery as our team is not available over the weekend. Thank you for involving us with care of this patient. We will continue to follow. Please call with questions. Attestations Medical Necessity Statement*: Care expected to cross 2 midnights. Coding Level of Care Code Acute Package Lift Operator for [facility] Laura Diagnoses Alport syndrome Q87.81 Acute respiratory failure with hypoxia J96.01 Severe sepsis due to methicillin resistant Staphylococcus aureus (MRSA) with acute organ dysfunction A41.02; R65.20 Severe mitral regurgitation I34.0 Tricuspid regurgitation I36.1 Cardiac valve disease etiology: nonrheumatic Endocarditis due to Staphylococcus I33.0; B95.8 Hemodialysis catheter infection T82.7XXD Encounter type: subsequent encounter
--- NOTE | 2021-06-28 11:20 | PC.NURSE ---
DR GONZALEZ ROUNDING Dr. Gonzalez rounding on patient. MD orders for PO amlodipine 5 mg once a day. MD orders to give to patient after extubation and swallow evaluation done.
--- NOTE | 2021-06-28 11:45 | PC.NURSE ---
BLOOD RN called lab to check on status of PRBC's. Lab states that because of antibodies found on the type and cross, blood had to be ordered from [facility]. Lab states they will call to let nurse know when blood arrives.
--- NOTE | 2021-06-28 12:03 | PC.NURSE ---
DR ОЛЕГ Gutierrez called unit to check on patient status. Notified that RT placing patient on CPAP mode on ventilator and preparing for extubation. Notified of order from Dr. Gonzalez for amlodipine. order to put in order for swallow study.
--- NOTE | 2021-06-28 12:35 | PC.RESP ---
pt extubated and placed on 4lpm nc. tolerated well
--- NOTE | 2021-06-28 12:58 | PC.NURSE ---
EXTUBATION Patient extubated to 5L nasal cannula. Tolerated well. Alert and oriented and asking for phone. Notified patient that RN spoke with his mother this morning.
--- NOTE | 2021-06-28 13:30 | PC.NURSE ---
Unused 250 mL bag fentanyl drip sent with Alice husbandry technician.
--- NOTE | 2021-06-28 13:42 | PC.NURSE ---
Addendum entered by Michelle Schneider RN 06/28/21 19:07: waste witnessed. Original Note: 80 mL fentanyl wasted with Arin Schneider RN.
--- NOTE | 2021-06-28 13:45 | PC.NURSE ---
Jose L with speech notified RN that patient passed swallow evaluation and to proceed with diet. MD orders for renal/diabetic diet order.
[2021-06-28] MEDS: amlodipine 5 mg Tablet PO (14:59)
--- NOTE | 2021-06-28 15:39 | PM.PN ---
Subjective Subjective: Patient was extubated today, doing well after extubation, did well with speech evaluation as well Patient is stating that he does not want to be transferred to [place], he wants to see Dr. Almeida once he is available Appreciate nephro and cardiology recommendations Cultures pending Vitals/I&O/Wt Last Vital Signs Pulse 82 06/28/21 14:00 Resp 6 L 06/28/21 14:00 BP 160/113 06/28/21 14:00 Pulse Ox 97 06/28/21 14:00 06/28/21 06/28/21 06/28/21 06:59 14:59 22:59 Intake Total 350 / 4325.54 220.000 / 220.000 Output Total 30 / 30 Balance 320 / 4295.54 220.000 / 220.000 Weight last 48 hrs Weight 92.079 kg Weight 90.718 kg Physical Exam Narrative: This morning patient was intubated however he was wide-awake on fentanyl Minimal vent settings Right forearm sutured in place no active signs of infection Mild signs of hypervolemia Awake and alert Following commands Distended/bloated abdomen no signs of peritonitis Trace edema of legs Urinary Catheter Management: Blue: Cath Placed During This Visit: yes Urethral Indwelling: Yes Reason for Continuing Indwelling Catheter: Accurate Measurement of Urinary Output in Critically Ill Patients Urinary Catheter Date of Insertion: 06/27/21 Urinary Catheter Time of Insertion: 10:20 Data : 06/28/21 04:26 06/28/21 04:26 Micro: Microbiology 06/27/21 12:15 Blood Culture - Preliminary Blood SPECIMEN COLLECTED 06/27/21 12:15 Blood Culture - Preliminary Blood SPECIMEN COLLECTED 06/27/21 13:00 Gram Stain - Final Sputum - Endotracheal Tube Aspirate A&P Assessment and plan (1) Anemia in chronic kidney disease: Status: Chronic (2) Alport syndrome: Status: Chronic (3) Abscess of right forearm: Status: Acute (4) Elevated troponin: Status: Acute (5) Acute respiratory failure with hypoxia: Status: Acute (6) Severe sepsis due to methicillin resistant Staphylococcus aureus (MRSA) with acute organ dysfunction: Status: Acute (7) Severe mitral regurgitation: Status: Acute (8) Tricuspid regurgitation: Status: Acute Qualifiers: Cardiac valve disease etiology: nonrheumatic Qualified Code(s): I36.1 - Nonrheumatic tricuspid (valve) insufficiency (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 (10) Hemodialysis catheter infection: Status: Acute Qualifiers: Encounter type: subsequent encounter Qualified Code(s): T82.7XXD - Infection and inflammatory reaction due to other cardiac and vascular devices, implants and grafts, subsequent encounter (11) ESRD (end stage renal disease) on dialysis: Status: Chronic (12) Diastolic heart failure: Status: Chronic Qualifiers: Heart failure chronicity: acute on chronic Qualified Code(s): I50.33 - Acute on chronic diastolic (congestive) heart failure Plan Patient extubated today 06/28 Permacath removed yesterday temporary dialysis catheter placed 06/27 Awaiting blood cultures Continue broad-spectrum antibiotics Appreciate nephro and cardiology recommendations Patient does not want to be transferred to [place] or [facility] He prefers to stay here and see Dr. Almeida once he is available Extubated to 5 L nasal cannula No active neurological signs or symptoms Doing well with speech eval advance diet to renal with fluid restriction Would like to monitor in ICU for 1 more day in ICU, if stays clinically stable will transfer him out of ICU For anemia chronic disease PRBC ordered Full code Attestations Medical Necessity Statement*: Continue ICU management Time Spent in Patient Care: 20mins Coding Level of Care Code Acute Stenocaptioner for [facility] Fwd Diagnoses Anemia in chronic kidney disease N18.9; D63.1 Alport syndrome Q87.81 Abscess of right forearm L02.413 Elevated troponin R77.8 Acute respiratory failure with hypoxia J96.01 Severe sepsis due to methicillin resistant Staphylococcus aureus (MRSA) with acute organ dysfunction A41.02; R65.20 Severe mitral regurgitation I34.0 Tricuspid regurgitation I36.1 Cardiac valve disease etiology: nonrheumatic Endocarditis due to Staphylococcus I33.0; B95.8 Hemodialysis catheter infection T82.7XXD Encounter type: subsequent encounter ESRD (end stage renal disease) on dialysis N18.6; Z99.2 Diastolic heart failure I50.33 Heart failure chronicity: acute on chronic
[2021-06-28] MEDS: sodium chloride 0.9% (100 ml) 100 ML ×2 (17:24→23:33)
[2021-06-28 17:40] LABS: Glucose Point of Care 101 mg/dL (70-110)
[2021-06-28] MEDS: labetalol 5 mg/mL SDV 20mL 20 MG IVP (18:21)
--- NOTE | 2021-06-28 18:28 | PC.NURSE ---
HYPERTENSION Notified Dr. Gutierrez of hypertension continuing after 5 mg PO amlodipine given around 1500. orders for 20 mg labetalol IVP one time and if does not correct hypertension, start ester britt.
[2021-06-28 20:04] LABS: Glucose Point of Care 109 mg/dL (70-110)
--- NOTE | 2021-06-28 22:11 | XRR_ITS ---
PROCEDURE INFORMATION: Exam: XR Abdomen Exam date and time: 06/28/2021 10:11 PM Age: 35 years old Clinical indication: Bloating and constipation; Additional info: Stat TECHNIQUE: Imaging protocol: XR of the abdomen. Views: Frontal supine view of the abdomen. 1 View. COMPARISON: CT abdomen pelvis con [id number] 06/07/2021 1:29 PM FINDINGS: Gastrointestinal tract: Gas within stomach, small bowel and colon with nonspecific nonobstructive bowel gas pattern. Intraperitoneal space: Hazy abdominal opacity. Bones/joints: No acute osseous abnormality. Soft tissues: Bulging flanks. XR/XR KUB portable [id number] IMPRESSION: 1. Nonspecific nonobstructive bowel gas pattern. 2. Appearance of large diffuse ascites.
--- NOTE | 2021-06-28 22:16 | PC.NURSE ---
patient c/o of abdomen filling full, tender and causing SOB, O2 88 to 90 placed on 2L NC. abdomen noted to be distended. blood running was stopped. Dr. Chapin notified. this nurse was advised this nurse HCP will put in order for KUB and bowl regiment. this nurse was advised to restart blood
[2021-06-28] MEDS: nicardipine 20 MG/200 ML PREMIX 50 MG IV (22:18)
--- NOTE | 2021-06-28 23:36 | PC.NURSE ---
this nurse notified Dr. Chapin that KUB report was back, this nure was advised to continue to monitor patient
[2021-06-29] VITALS (39 sets, daily range): BP systolic 138–175; BP diastolic 83–112; PULSE 90–106; RESP 0–22; TEMP 36.8; O2SAT 88–100
[2021-06-29] MEDS: nicardipine 20 MG/200 ML PREMIX 75 MG IV ×5 (01:12→18:17)
[2021-06-29] MEDS: ipratropium-albuterol 3 mL Neb INHALATION ×4 (03:26→20:01)
[2021-06-29 04:44] LABS: Basophils # 0.2 10^3/uL (0.0-0.1); Basophils % 1.8 %; Eosinophils # 0.7 10^3/uL (0.0-0.8); Hematocrit 28.2 % (42.0-52.0); Hemoglobin 8.9 g/dL (11.7-16.6); Lymphocytes % 8.2 %; Mean Corpuscular HGB Conc 31.6 g/dL (30.0-36.0); Mean Corpuscular Hemoglobin 28.6 pg (28.0-34.0); Mean Corpuscular Volume 90.7 fl (80-94); Mean Platelet Volume 10.2 fL (7.4-10.4); Monocytes # 0.6 10^3/uL (0.2-0.9); Monocytes % 5.4 %; Neutrophils % 77.8 %; Nucleated Red Blood Cells % 0 %; Platelet Count 165 10^3/cmm (130-400); Red Blood Count 3.11 10^6/uL (4.1-5.3); Red Cell Distribution Width 21.7 % (12.1-15.1); White Blood Count 11.9 10^3/uL (4.0-10.0)
[2021-06-29 04:59] LABS: Blood Urea Nitrogen 40 mg/dL (6-20); Calcium 8.5 mg/dL (8.5-10.5); Carbon Dioxide 20 mmol/L (22-29); Chloride 96 mmol/L (98-107); Glomerular Filtration Rate 9.4 mL/min (90-130); Glucose 86 mg/dL (65-115); Osmolality Calculated 289 mOsm/kg (285-295); Sodium 135 mmol/L (136-145)
[2021-06-29 05:01] LABS: Anion Gap 24.9 (5-19); Potassium 5.9 mmol/L (3.5-5.1)
[2021-06-29 05:04] LABS: Vancomycin Random 26.8 ug/mL (20.0-40.0)
[2021-06-29] MEDS: piperacillin-tazobactam 3.375 GM in dextrose 5% (plus) 50 ML IV ×2 (06:18→17:52)
--- NOTE | 2021-06-29 07:02 | P.PN_ITS ---
Subjective Subjective: feels better. c/o abd distention and pain, n. denies f/c/dunaway. Medications: Reviewed: Yes Medication Review Details: Current Medications Acetaminophen (Acetaminophen 325 Mg Tablet) 650 mg PO Q6H PRN PRN Reason: MILD PAIN Albuterol/Ipratropium (Ipratropium-Albuterol 3 Ml Neb) 3 ml INHALATION Q6H.RESPIRATORY [facility] Last Admin: 06/29/21 03:26 Dose: 3 ml Documented by: Dextrose (Dextrose 50% Syringe 50 Ml) 50 ml IVP PRN PRN; Protocol PRN Reason: hypoglycemia protocol Dextrose (Dextrose 50% Sdv 50 Ml) 25 ml IVP ONCE PRN; Protocol PRN Reason: hypoglycemia protocol Last Admin: 06/27/21 17:26 Dose: 25 ml Documented by: Docusate Sodium (Docusate Sodium 100 Mg Capsule) 100 mg PO BID VASHTI Glucagon (Glucagon 1 Mg/Ml Inj 1 Ml) 1 mg IM ONCE PRN; Protocol PRN Reason: Adult Acute Hypoglycemia Prot. Heparin Sodium (Porcine) (Heparin 5,000 Unit/Ml Inj 1 Ml) 5,000 unit SUBCUT Q12H [facility] Last Admin: 06/28/21 05:06 Dose: 5,000 unit Documented by: Dextrose (D5w) 500 mls @ 100 mls/hr IV ONCE PRN; Protocol PRN Reason: Adult Acute Hypoglycemia Prot Norepinephrine Bitartrate 4 mg (/ Dextrose) 254 mls @ 0 mls/hr IV .Q0M VASHTI; Protocol Piperacillin Sod/Tazobactam (Sod 3.375 gm/ Dextrose) 50 mls @ 12.5 mls/hr IV Q12H [facility] Last Admin: 06/29/21 06:18 Dose: 12.5 mls/hr Documented by: Propofol (Diprivan) 1,000 mg in 100 mls @ 0 mls/hr IV .Q0M VASHTI; Protocol Vancomycin HCl 1,000 mg/ (Sodium Chloride) 250 mls @ 250 mls/hr IV DIALYSIS [facility] Last Admin: 06/28/21 19:56 Dose: Not Given Documented by: Nicardipine/Sodium Chloride (Cardene) 20 mg in 200 mls @ 0 mls/hr IV .Q0M VASHTI; Protocol Last Admin: 06/29/21 06:27 Dose: 7.5 mg/hr, 75 mls/hr Documented by: Insulin Human Lispro (Insulin Lispro 100 Unit/1 Ml) 0 unit SUBCUT BEDTIME [facility]; Protocol Last Admin: 06/28/21 20:03 Dose: Not Given Documented by: Insulin Human Lispro (Insulin Lispro 100 Unit/1 Ml) 0 unit SUBCUT TIDWM [facility]; Protocol Last Admin: 06/28/21 17:24 Dose: Not Given Documented by: Ondansetron HCl (Ondansetron 2 Mg/Ml Sdv 2 Ml) 4 mg IVP Q6H PRN PRN Reason: NAUSEA AND VOMITING Pantoprazole Sodium (Pantoprazole 40 Mg Sdv) 40 mg IVP DAILY [facility] Last Admin: 06/28/21 08:41 Dose: 40 mg Documented by: Polyethylene Glycol (Polyethylene Glycol 3350 Pkt 17 Gm) 17 gm PO BID [facility] Vitals/I&O/Wt Last Vital Signs Temp 98.3 F 06/28/21 20:59 Pulse 94 06/29/21 06:01 Resp 11 L 06/29/21 06:01 BP 154/97 06/29/21 06:01 Pulse Ox 90 06/29/21 06:01 06/28/21 06/29/21 06/29/21 22:59 06:59 14:59 Intake Total 640 / 266.840 5946.083 / 1907.083 Balance 640 / 992.197 1267.083 / 1907.083 Weight last 48 hrs Weight 92.986 kg Weight 92.079 kg Physical Exam Narrative: BP elevated on cardene drip, NARD heent- nc/at, vs noted neck supple, IJ Permacath lungs crackles heart reg, + XIMENA abd distended, + bs ext no edema neuro- a,a, o x 3 Urinary Catheter Management: Blue: Cath Placed During This Visit: yes Urethral Indwelling: Yes Reason for Continuing Indwelling Catheter: Accurate Measurement of Urinary Output in Critically Ill Patients Urinary Catheter Date of Insertion: 06/27/21 Urinary Catheter Time of Insertion: 10:20 Data : 06/29/21 03:59 06/29/21 03:59 Micro: Microbiology 06/27/21 12:15 Blood Culture - Preliminary Blood NEGATIVE TO DATE 06/27/21 12:15 Blood Culture - Preliminary Blood NEGATIVE TO DATE 06/27/21 13:00 Gram Stain - Final Sputum - Endotracheal Tube Aspirate Sputum Culture - Preliminary A&P Assessment and plan (1) ESRD (end stage renal disease) on dialysis: 35 yr old man ESRD from alports syndrome w/ recent MRSA bacteremia and cardiac valve vegetations/ emdocarditis 1. ESRD- repeat hd now- 4 hrs, 2k, remove 3l as tolerated -Permacath removed. temp left IJ HD catheter- by Dr. Worthington- i believe was changed over a guidewire- same position- can clarify w/ Dr. Worthington 1b. hyperkalemia- HD now 2. HTN- wean off of cardene drip 3. severe MR and TR bacteremia- vanco by level -trough under 20. renal dose zosyn 4. all cultures from this admission- NGTD 5. anemia- hgb improved to 8.9 after prbc tx tsat 22%, ferritin 158 6. phos binders -recent pth 169- no vit d analouge seen and examine dw/ RN- telehealth visit time spent 30+ minutes Status: Chronic Plan see above Attestations Medical Necessity Statement*: esrd, hyperkalemia, sepsis Time Spent in Patient Care: 16 - 35 minutes (>than 50% of time spent in counselling and/or direct pt care on unit) . Coding Level of Care Code Acute Lab Specialist for [facility] Fwd Diagnoses ESRD (end stage renal disease) on dialysis N18.6; Z99.2
[2021-06-29] MEDS: sevelamer 800 mg Tablet 1600 MG PO ×2 (08:25→20:29)
[2021-06-29] MEDS: pantoprazole 40 mg SDV IVP (08:25)
[2021-06-29] MEDS: b-complex-vitamin c Tablet 1 EACH PO (08:25)
[2021-06-29] MEDS: polyethylene glycol 3350 Pkt 17 gm PO ×2 (08:25→17:51)
[2021-06-29] MEDS: docusate sodium 100 mg Capsule PO ×2 (08:25→17:51)
--- NOTE | 2021-06-29 09:42 | PM.PN ---
Subjective Subjective: Patient is overall doing well. He was extubated yesterday. Is alert today. Denies chest pain or shortness of breath. Vitals/I&O/Wt Last Vital Signs Temp 98.3 F 06/29/21 07:56 Pulse 98 06/29/21 09:08 Resp 16 06/29/21 09:08 BP 154/97 06/29/21 07:56 Pulse Ox 94 06/29/21 09:08 06/28/21 06/29/21 06/29/21 22:59 06:59 14:59 Intake Total 640 / 273.623 6754.083 / 1907.083 200 / 200 Output Total 30 / 30 Balance 640 / 018.348 9392.083 / 1907.083 170 / 170 Weight last 48 hrs Weight 205 lb Weight 203 lb Physical Exam Narrative: GENERAL: Patient is alert and oriented x3. NECK: No jugular vein distension. [] HEENT: No cyanosis. No icterus. No pallor. [] HEART: Regular S1 and S2. Has grade 3/6 systolic murmur[] LUNGS: Clear ABDOMEN: Soft CENTRAL NERVOUS SYSTEM:Intubated EXTREMITIES: Lower extremities with 1+ edema bilaterally. Pulses palpable in the lower extremities Urinary Catheter Management: Blue: Cath Placed During This Visit: yes Urethral Indwelling: Yes Reason for Continuing Indwelling Catheter: Accurate Measurement of Urinary Output in Critically Ill Patients Urinary Catheter Date of Insertion: 06/27/21 Urinary Catheter Time of Insertion: 10:20 Data : 06/29/21 03:59 06/29/21 03:59 Micro: Microbiology 06/27/21 12:15 Blood Culture - Preliminary Blood NEGATIVE TO DATE 06/27/21 12:15 Blood Culture - Preliminary Blood NEGATIVE TO DATE 06/27/21 13:00 Gram Stain - Final Sputum - Endotracheal Tube Aspirate Sputum Culture - Preliminary A&P Assessment and plan (1) Alport syndrome: Status: Chronic (2) Acute respiratory failure with hypoxia: Status: Acute (3) Severe sepsis due to methicillin resistant Staphylococcus aureus (MRSA) with acute organ dysfunction: Status: Acute (4) Severe mitral regurgitation: Status: Acute (5) Tricuspid regurgitation: Status: Acute Qualifiers: Cardiac valve disease etiology: nonrheumatic Qualified Code(s): I36.1 - Nonrheumatic tricuspid (valve) insufficiency (6) 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 TTE was unchanged for mitral and tricuspid valves however there is suspicion for aortic root abscess. We tried to rule it out with CTA however it was nonconclusive. Transesophageal echocardiogram was eventually performed that did not reveal aortic abscess. Continue antibiotics per ICU team. Patient has improved significantly since admission. He is off pressors. Is actually hypertensive at this time. We will add amlodipine for 10 mg daily. Extubated yesterday. He is alert and oriented. Patient did not want to be transferred. We will have him assessed by CT surgery team tomorrow. Thank you for involving us with care of this patient. We will continue to follow. Please call with questions. Attestations Medical Necessity Statement*: Care expected to cross 2 midnights. Coding Level of Care Code Acute Dye Lab Technician for [facility] Diagnoses Alport syndrome Q87.81 Acute respiratory failure with hypoxia J96.01 Severe sepsis due to methicillin resistant Staphylococcus aureus (MRSA) with acute organ dysfunction A41.02; R65.20 Severe mitral regurgitation I34.0 Tricuspid regurgitation I36.1 Cardiac valve disease etiology: nonrheumatic Endocarditis due to Staphylococcus I33.0; B95.8 Hemodialysis catheter infection T82.7XXD Encounter type: subsequent encounter
[2021-06-29 09:50] LABS: Hepatitis B Surface AB 141.3 (11.5-1000); Hepatitis B Surface Antigen Non-Reactive (Nonreactive); Hepatitis C Virus Antibody Non-Reactive (Nonreactive)
[2021-06-29 11:44] LABS: Glucose Point of Care 116 mg/dL (70-110)
[2021-06-29] MEDS: nicardipine 20 MG/200 ML PREMIX 60 MG IV ×2 (11:55→15:43)
--- NOTE | 2021-06-29 12:11 | PM.PN ---
Subjective Subjective: Since extubation patient is doing fine, no febrile events, cultures negative to date, mild leukocytosis, hemoglobin 8.9, plan for dialysis today for worsening creatinine and hyperkalemia I have reviewed echo, culture results, CTA chest, Vitals/I&O/Wt Last Vital Signs Temp 98.3 F 06/29/21 07:56 Pulse 98 06/29/21 09:08 Resp 16 06/29/21 09:08 BP 154/97 06/29/21 07:56 Pulse Ox 94 06/29/21 09:08 06/28/21 06/29/21 06/29/21 22:59 06:59 14:59 Intake Total 640 / 661.350 6101.083 / 1907.083 400 / 400 Output Total 30 / 30 Balance 640 / 564.497 1509.083 / 1907.083 370 / 370 Weight last 48 hrs Weight 92.986 kg Weight 92.079 kg Physical Exam Narrative: Patient is awake and alert Doing well on 4 L nasal cannula Distended abdomen, ascites, hepatomegaly Mild fluid overload signs Awake and alert nonfocal neuro exam Multiple skin tattoos Right arm sutured in place does not look infected Left IJ temporary dialysis catheter in place Nonfocal neuro exam EOMI, PERRLA Variable S1-S2 Bilateral breath sounds with rhonchi at the bases Urinary Catheter Management: Blue: Cath Placed During This Visit: yes Urethral Indwelling: Yes Reason for Continuing Indwelling Catheter: Accurate Measurement of Urinary Output in Critically Ill Patients Urinary Catheter Date of Insertion: 06/27/21 Urinary Catheter Time of Insertion: 10:20 Data : 06/29/21 03:59 06/29/21 03:59 Micro: Microbiology 06/27/21 12:15 Blood Culture - Preliminary Blood NEGATIVE TO DATE 06/27/21 12:15 Blood Culture - Preliminary Blood NEGATIVE TO DATE 06/27/21 13:00 Gram Stain - Final Sputum - Endotracheal Tube Aspirate Sputum Culture - Preliminary A&P Assessment and plan (1) Anemia in chronic kidney disease: Status: Chronic (2) Alport syndrome: Status: Chronic (3) Acute respiratory failure with hypoxia: Status: Acute (4) Severe mitral regurgitation: Status: Acute (5) Tricuspid regurgitation: Status: Acute Qualifiers: Cardiac valve disease etiology: nonrheumatic Qualified Code(s): I36.1 - Nonrheumatic tricuspid (valve) insufficiency (6) 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 (7) MRSA bacteremia: Status: Acute (8) Hemodialysis catheter infection: Status: Acute Qualifiers: Encounter type: subsequent encounter Qualified Code(s): T82.7XXD - Infection and inflammatory reaction due to other cardiac and vascular devices, implants and grafts, subsequent encounter (9) ESRD (end stage renal disease) on dialysis: Status: Chronic (10) Diastolic heart failure: Status: Chronic Qualifiers: Heart failure chronicity: acute on chronic Qualified Code(s): I50.33 - Acute on chronic diastolic (congestive) heart failure (11) HTN (hypertension): Status: Chronic (12) Hypertensive emergency: Status: Acute Plan I do believe patient's hypotensive episode on the day of dialysis is related to valvular severe regurgitation, I do not see any signs of cardiac tamponade, pericardial effusion, physical exam is consistent with heart failure related hepatic congestion and ascites He is not spiking fever Off pressors Hemoglobin stable CTA chest did not show flattening of septum however right atrium was dilated which is secondary to valvular regurgitation no sign of pulmonary embolism, Obstructive shock criteria not met I do believe his shock was secondary to hypovolemia with dialysis with underlying severe valvular regurgitation I would continue antibiotics for now, Transesophageal echo results reviewed, Appreciate nephro and cardiology recommendations As per my understanding cardiology's plan to discuss this case with Dr. Almeida once he is available next week patient does not want to be transferred outside of [place] For hyperkalemia and worsening creatinine: Dialysis today Chronic hypoxia patient is stating that he was prescribed 4 L of oxygen at the time of discharge which he has not been able to use, currently doing well on 4 L, extubated 06/28 Right forearm sutures to be removed by orthopedic Heparin for DVT prophylaxis Protonix for GI prophylaxis Full code Renal dialysis diet Hypertensive emergency with endorgan damage, wean off Cardene drip which was started on 06/28 Attestations Medical Necessity Statement*: Can be transferred out of ICU if bed is needed Time Spent in Patient Care: 25min Coding Level of Care Code Acute Breast Worker for [facility] Fwd Diagnoses Anemia in chronic kidney disease N18.9; D63.1 Alport syndrome Q87.81 Acute respiratory failure with hypoxia J96.01 Severe mitral regurgitation I34.0 Tricuspid regurgitation I36.1 Cardiac valve disease etiology: nonrheumatic Endocarditis due to Staphylococcus I33.0; B95.8 MRSA bacteremia R78.81; B95.62 Hemodialysis catheter infection T82.7XXD Encounter type: subsequent encounter ESRD (end stage renal disease) on dialysis N18.6; Z99.2 Diastolic heart failure I50.33 Heart failure chronicity: acute on chronic HTN (hypertension) I10 Hypertensive emergency I16.1
[2021-06-29 17:32] LABS: Glucose Point of Care 109 mg/dL (70-110)
[2021-06-29] MEDS: heparin 5,000 unit/mL INJ 1 mL 5000 UNIT SUBCUT (17:51)
--- NOTE | 2021-06-29 18:19 | PC.NURSE ---
Shift Note Frequent safety and comfort rounds continue. Orders and/or nursing care completed as indicated. Patient monitored for response to intervention and treatment(s). Education provided includes central line. Patient and/or chemical sales representative verbalize understanding. Will continue to monitor. Pt rec'd HD today and 3L was removed.
[2021-06-29 20:40] LABS: Glucose Point of Care 129 mg/dL (70-110)
[2021-06-29] MEDS: nicardipine 20 MG/200 ML PREMIX 80 MG IV ×2 (21:15→23:43)
--- NOTE | 2021-06-29 22:09 | PC.NURSE ---
Dr. Gonzalez bedside to see the patient at 2203. Verbal orders to give amlodipine 10mg one time now, and then start amlodipine 10mg daily in the morning with the goal to wean down the cardene drip.
[2021-06-29] MEDS: amlodipine 10 mg Tablet PO (23:06)
[2021-06-30] VITALS (58 sets, daily range): BP systolic 93–179; BP diastolic 59–114; PULSE 65–107; RESP 0–29; TEMP 36.7–37.2; O2SAT 91–100
[2021-06-30] MEDS: nicardipine 20 MG/200 ML PREMIX 80 MG IV (02:10)
[2021-06-30] MEDS: ipratropium-albuterol 3 mL Neb INHALATION ×2 (03:17→08:18)
[2021-06-30 04:04] LABS: Basophils # 0.2 10^3/uL (0.0-0.1); Basophils % 1.6 %; Eosinophils # 0.6 10^3/uL (0.0-0.8); Eosinophils % 5.2 %; Hematocrit 28.4 % (42.0-52.0); Hemoglobin 9.1 g/dL (11.7-16.6); Lymphocytes % 8.6 %; Mean Corpuscular Hemoglobin 28.5 pg (28.0-34.0); Mean Platelet Volume 10.3 fL (7.4-10.4); Monocytes # 0.7 10^3/uL (0.2-0.9); Monocytes % 6.5 %; Neutrophils # 8.88 10^3/uL (1.8-7.7); Neutrophils % 77.6 %; Nucleated Red Blood Cells % 0.2 %; Platelet Count 191 10^3/cmm (130-400); Red Blood Count 3.19 10^6/uL (4.1-5.3); Red Cell Distribution Width 21.3 % (12.1-15.1); White Blood Count 11.4 10^3/uL (4.0-10.0)
[2021-06-30 04:23] LABS: Alanine Aminotransferase 10 U/L (0-41); Alkaline Phosphatase 134 IU/L (40-130); Anion Gap 19.5 (5-19); Aspartate Amino Transferase 17 U/L (0-40); Blood Urea Nitrogen 31 mg/dL (6-20); Calcium 9.3 mg/dL (8.5-10.5); Carbon Dioxide 25 mmol/L (22-29); Chloride 98 mmol/L (98-107); Globulin 3.4 g/dL (1.3-4.6); Glomerular Filtration Rate 10.2 mL/min (90-130); Glucose 105 mg/dL (65-115); Magnesium 1.9 mg/dL (1.7-2.3); Osmolality Calculated 293 mOsm/kg (285-295); Phosphorus 3.9 mg/dL (2.5-4.5); Potassium 4.5 mmol/L (3.5-5.1); Sodium 138 mmol/L (136-145); Total Bilirubin 0.7 mg/dL (0.15-1.2); Total Protein 7.4 g/dL (6.6-8.7)
[2021-06-30 04:27] LABS: Vancomycin Random 20.9 ug/mL (20.0-40.0)
[2021-06-30] MEDS: nicardipine 20 MG/200 ML PREMIX 100 MG IV ×2 (04:35→06:33)
[2021-06-30 05:11] LABS: 25 Hydroxy Vitamin D 39 ng/mL (30-100)
[2021-06-30] MEDS: heparin 5,000 unit/mL INJ 1 mL 5000 UNIT SUBCUT ×2 (05:32→18:02)
--- NOTE | 2021-06-30 06:24 | PC.NURSE ---
Patient remained alert and oriented throughout the night. Normal sinus/sinus tachycardia with a heart rate from 90-105. Around 0145, the patient had a couple of dips in his heart rate to 45bpm but would immediately recover back to his normal rate of 90-105. Paused cardene drip until further assessment. Patient was asleep and had some sleep apnea upon assessment. His heart rate would dip during his short apnea episodes. Resumed cardene drip with continued assessment with heart rate. No further issues with this the rest of the night. Patient on and off 2LNC to room air. 300ml urine output out, and no bowel movement. No further concerns at this time.
[2021-06-30] MEDS: piperacillin-tazobactam 3.375 GM in dextrose 5% (plus) 50 ML IV ×2 (06:32→18:04)
--- NOTE | 2021-06-30 07:50 | PM.PN ---
Subjective Subjective: still sob. no n/v/f/c/dunaway/d/leg pains. Medications: Reviewed: Yes Medication Review Details: Current Medications Acetaminophen (Acetaminophen 325 Mg Tablet) 650 mg PO Q6H PRN PRN Reason: MILD PAIN Albuterol/Ipratropium (Ipratropium-Albuterol 3 Ml Neb) 3 ml INHALATION Q6H.RESPIRATORY [facility] [place] Last Admin: 06/30/21 03:17 Dose: 3 ml Documented by: Amlodipine Besylate (Amlodipine 10 Mg Tablet) 10 mg PO ONCE [facility] [place] Last Admin: 06/29/21 23:06 Dose: 10 mg Documented by: Amlodipine Besylate (Amlodipine 10 Mg Tablet) 10 mg PO DAILY [facility] [place] Dextrose (Dextrose 50% Syringe 50 Ml) 50 ml IVP PRN PRN; Protocol PRN Reason: hypoglycemia protocol Dextrose (Dextrose 50% Sdv 50 Ml) 25 ml IVP ONCE PRN; Protocol PRN Reason: hypoglycemia protocol Last Admin: 06/27/21 17:26 Dose: 25 ml Documented by: Docusate Sodium (Docusate Sodium 100 Mg Capsule) 100 mg PO BID [facility] [place] Last Admin: 06/29/21 17:51 Dose: 100 mg Documented by: Glucagon (Glucagon 1 Mg/Ml Inj 1 Ml) 1 mg IM ONCE PRN; Protocol PRN Reason: Adult Acute Hypoglycemia Prot. Heparin Sodium (Porcine) (Heparin 5,000 Unit/Ml Inj 1 Ml) 5,000 unit SUBCUT Q12H [facility] [place] Last Admin: 06/30/21 05:32 Dose: 5,000 unit Documented by: Dextrose (D5w) 500 mls @ 100 mls/hr IV ONCE PRN; Protocol PRN Reason: Adult Acute Hypoglycemia Prot Norepinephrine Bitartrate 4 mg (/ Dextrose) 254 mls @ 0 mls/hr IV .Q0M [facility] [place]; Protocol Piperacillin Sod/Tazobactam (Sod 3.375 gm/ Dextrose) 50 mls @ 12.5 mls/hr IV Q12H [facility] [place] Last Admin: 06/30/21 06:32 Dose: 12.5 mls/hr Documented by: Propofol (Diprivan) 1,000 mg in 100 mls @ 0 mls/hr IV .Q0M [facility] [place]; Protocol Vancomycin HCl 1,000 mg/ (Sodium Chloride) 250 mls @ 250 mls/hr IV DIALYSIS [facility] [place] Last Admin: 06/28/21 19:56 Dose: Not Given Documented by: Nicardipine/Sodium Chloride (Cardene) 20 mg in 200 mls @ 0 mls/hr IV .Q0M [facility] [place]; Protocol Last Admin: 06/30/21 06:33 Dose: 10 mg/hr, 100 mls/hr Documented by: Albumin Human (Albumin) 12.5 gm in 50 mls @ 60 mls/hr IV PRN PRN PRN Reason: Hypotension and/or symptomatic Insulin Human Lispro (Insulin Lispro 100 Unit/1 Ml) 0 unit SUBCUT BEDTIME [facility] [place]; Protocol Last Admin: 06/29/21 20:40 Dose: Not Given Documented by: Insulin Human Lispro (Insulin Lispro 100 Unit/1 Ml) 0 unit SUBCUT TIDWM [facility] [place]; Protocol Last Admin: 06/30/21 07:34 Dose: Not Given Documented by: Multivitamins (I-Jrgzcjx-Mjjfuyb C Tablet) 1 each PO DAILY [facility] [place] Last Admin: 06/29/21 08:25 Dose: 1 each Documented by: Ondansetron HCl (Ondansetron 2 Mg/Ml Sdv 2 Ml) 4 mg IVP Q6H PRN PRN Reason: NAUSEA AND VOMITING Pantoprazole Sodium (Pantoprazole 40 Mg Sdv) 40 mg IVP DAILY [facility] [place] Last Admin: 06/29/21 08:25 Dose: 40 mg Documented by: Polyethylene Glycol (Polyethylene Glycol 3350 Pkt 17 Gm) 17 gm PO BID [facility] [place] Last Admin: 06/29/21 17:51 Dose: 17 gm Documented by: Sevelamer Carbonate (Sevelamer 800 Mg Tablet) 1,600 mg PO TID [facility] [place] Last Admin: 06/29/21 20:29 Dose: 1,600 mg Documented by: Vitals/I&O/Wt Last Vital Signs Temp 98.3 F 06/30/21 07:28 Pulse 102 H 06/30/21 07:28 Resp 3 L 06/30/21 07:28 BP 155/96 06/30/21 07:28 Pulse Ox 95 06/30/21 07:28 06/29/21 06/30/21 06/30/21 22:59 06:59 14:59 Intake Total 904.000 / 1797.962 1988.667 / 2923.667 Output Total 130 / 160 300 / 460 Balance 774.000 / 1494.000 969.667 / 2463.667 Weight last 48 hrs Weight 99.427 kg Weight 92.986 kg Physical Exam Narrative: BP elevated on cardene drip, NARD heent- nc/at, vs noted neck supple, left IJ temp catheter lungs crackles heart reg, + XIMENA abd NT, NDd, + bs ext no edema neuro- a,a, o x 3 Urinary Catheter Management: Blue: Cath Placed During This Visit: yes Urethral Indwelling: Yes Reason for Continuing Indwelling Catheter: Accurate Measurement of Urinary Output in Critically Ill Patients Urinary Catheter Date of Insertion: 06/27/21 Urinary Catheter Time of Insertion: 10:20 Data : 06/30/21 03:34 06/30/21 03:34 Micro: Microbiology 06/27/21 13:49 Catheter Tip Culture - Preliminary Other Source 06/27/21 13:00 Gram Stain - Final Sputum - Endotracheal Tube Aspirate Sputum Culture - Final 06/27/21 12:15 Blood Culture - Preliminary Blood NEGATIVE TO DATE 06/27/21 12:15 Blood Culture - Preliminary Blood NEGATIVE TO DATE A&P Assessment and plan (1) ESRD (end stage renal disease) on dialysis: 35 yr old man ESRD from alports syndrome w/ recent MRSA bacteremia and cardiac valve vegetations/ emdocarditis 1. ESRD- s/p hd yesterdey -repeat SUF now - 3 hrs, 3 l as melissa -Permacath removed. temp left IJ HD catheter- by Dr. Worthington- i believe was changed over a guidewire- same position- can clarify w/ Dr. Worthington 2. HTN- wean off of cardene drip 3. severe MR and TR bacteremia- vanco by level -trough under 20. renal dose zosyn 4. all cultures from this admission- NGTD 5. anemia- hgb improved to 9.1 after prbc tx tsat 22%, ferritin 158 6. phos binders -recent pth 169- no vit d analouge i discussed w/ pt-potential for transfer for eval of his endocarditis and valvular vegetations seen and examined w/ RN- telehealth visit time spent 30 minutes Status: Chronic Plan see above Attestations Medical Necessity Statement*: esrd, endocarditis, resp distress, htn Time Spent in Patient Care: 16 - 35 minutes (>than 50% of time spent in counselling and/or direct pt care on unit). Coding Level of Care Code Acute Toll Line Inspector for Chg Fwd Diagnoses ESRD (end stage renal disease) on dialysis N18.6; Z99.2
[2021-06-30 07:56] LABS: Glucose Point of Care 98 mg/dL (70-110)
--- NOTE | 2021-06-30 08:30 | PM.PN ---
Subjective Subjective: Patient is overall doing well. Denies any chest pain or shortness of breath. Vitals/I&O/Wt Last Vital Signs Temp 98.3 F 06/30/21 07:28 Pulse 105 H 06/30/21 08:21 Resp 16 06/30/21 08:21 BP 155/96 06/30/21 07:28 Pulse Ox 96 06/30/21 08:21 06/29/21 06/30/21 06/30/21 22:59 06:59 14:59 Intake Total 904.000 / 7771.095 5145.667 / 2923.667 Output Total 130 / 160 300 / 460 Balance 774.000 / 1494.000 969.667 / 2463.667 Weight last 48 hrs Weight 219 lb 3.2 oz Weight 205 lb Physical Exam Narrative: GENERAL: Patient is alert and oriented x3. NECK: No jugular vein distension. [] HEENT: No cyanosis. No icterus. No pallor. [] HEART: Regular S1 and S2. Has grade 3/6 systolic murmur[] LUNGS: Clear ABDOMEN: Soft CENTRAL NERVOUS SYSTEM:Intubated EXTREMITIES: Lower extremities with 1+ edema bilaterally. Pulses palpable in the lower extremities Urinary Catheter Management: Blue: Cath Placed During This Visit: yes Urethral Indwelling: Yes Reason for Continuing Indwelling Catheter: Accurate Measurement of Urinary Output in Critically Ill Patients Urinary Catheter Date of Insertion: 06/27/21 Urinary Catheter Time of Insertion: 10:20 Data : 07/01/21 03:31 07/01/21 03:31 Micro: Microbiology 06/27/21 13:49 Catheter Tip Culture - Preliminary Other Source 06/27/21 13:00 Gram Stain - Final Sputum - Endotracheal Tube Aspirate Sputum Culture - Final A&P Assessment and plan (1) Alport syndrome: Status: Chronic (2) Acute respiratory failure with hypoxia: Status: Acute (3) Severe sepsis due to methicillin resistant Staphylococcus aureus (MRSA) with acute organ dysfunction: Status: Acute (4) Severe mitral regurgitation: Status: Acute (5) Tricuspid regurgitation: Status: Acute Qualifiers: Cardiac valve disease etiology: nonrheumatic Qualified Code(s): I36.1 - Nonrheumatic tricuspid (valve) insufficiency (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 TTE was unchanged for mitral and tricuspid valves however there is suspicion for aortic root abscess.? We tried to rule it out with CTA however it was nonconclusive.? Transesophageal echocardiogram was eventually performed that did not reveal aortic abscess. Continue antibiotics per ICU team. Significant improvement since admission. Now extubated. He is alert and oriented Evaluated by CT surgery team. Options discussed in heart team meeting given difficulty of proceeding with bioprosthetic valve replacement given his young age and ESRD and with mechanical mitral valve because of need for anticoagulation. We will discuss further with patient. He may need evaluation as outpatient at tertiary care center to assess alternate options. Thank you for involving us with care of this patient.? We will continue to follow.? Please call with questions. Attestations Medical Necessity Statement*: Care expected to cross 2 midnights. Coding Level of Care Code Acute Muck Operator for [facility] Diagnoses Alport syndrome Q87.81 Acute respiratory failure with hypoxia J96.01 Severe sepsis due to methicillin resistant Staphylococcus aureus (MRSA) with acute organ dysfunction A41.02; R65.20 Severe mitral regurgitation I34.0 Tricuspid regurgitation I36.1 Cardiac valve disease etiology: nonrheumatic Endocarditis due to Staphylococcus I33.0; B95.8 Hemodialysis catheter infection T82.7XXD Encounter type: subsequent encounter
[2021-06-30] MEDS: b-complex-vitamin c Tablet 1 EACH PO (09:27)
[2021-06-30] MEDS: docusate sodium 100 mg Capsule PO ×2 (09:27→18:02)
[2021-06-30] MEDS: cloNIDine 0.1 mg Tablet PO ×3 (09:27→20:07)
[2021-06-30] MEDS: amlodipine 10 mg Tablet PO (09:28)
[2021-06-30] MEDS: pantoprazole 40 mg SDV IVP (09:28)
[2021-06-30] MEDS: sevelamer 800 mg Tablet 1600 MG PO ×3 (09:28→20:07)
--- NOTE | 2021-06-30 10:01 | P.PN_ITS ---
Subjective Subjective: POD 19 pt denies any Right arm pain. Vitals/I&O/Wt Last Vital Signs Temp 98.3 F 06/30/21 07:28 Pulse 105 H 06/30/21 08:21 Resp 16 06/30/21 08:21 BP 165/96 06/30/21 09:27 Pulse Ox 96 06/30/21 08:21 06/29/21 06/30/21 06/30/21 22:59 06:59 14:59 Intake Total 904.000 / 3566.852 3298.667 / 2923.667 Output Total 130 / 160 300 / 460 Balance 774.000 / 1494.000 969.667 / 2463.667 Weight last 48 hrs Weight 219 lb 3.2 oz Weight 205 lb Physical Exam Narrative: Alert and oriented x3 has a good general appearance normal mood normal affect. Incision is healing nicely sutures are present. He is moving all digits are warm to the touch. Full range of motion of the right elbow and shoulder. He moves all digits on his right hand with good strength. Urinary Catheter Management: Blue: Cath Placed During This Visit: yes Urethral Indwelling: Yes Reason for Continuing Indwelling Catheter: Accurate Measurement of Urinary Output in Critically Ill Patients Urinary Catheter Date of Insertion: 06/27/21 Urinary Catheter Time of Insertion: 10:20 Data : 06/30/21 03:34 06/30/21 03:34 Micro: Microbiology 06/27/21 13:49 Catheter Tip Culture - Preliminary Other Source 06/27/21 13:00 Gram Stain - Final Sputum - Endotracheal Tube Aspirate Sputum Culture - Final A&P Assessment and plan (1) Abscess of right forearm: Remove the sutures in the right forearm apply Silverlon dressing. Continue to ice and elevate as needed. Keep the incision clean and dry for additional 4 to 5 days until the suture holes finished consolidating in. Status: Acute Attestations Medical Necessity Statement*: defer to medical team Coding Level of Care Code Acute Barrel Rifler Hook for Glendy Sanchez Diagnoses Abscess of right forearm L02.413
--- NOTE | 2021-06-30 10:12 | PC.CHAP ---
Pastoral Care Encounter/Spiritual Assessment Type of Contact [] Declined reading aide visit [] Patient/Family/Request visit [] Outpatient visit [] Follow-up visit [] Physician referral [] Code/Alert [x] Routine visit [] Staff referral [] Actively dying [] Patient sleeping [] Family support [] [] Out of room [] Palliative care [] [x] Receiving care in room [] Pre-surgical visit [] Trauma [] Long length of stay [x] ICU visit [x] Other: dialysis Relational/Emotional Strength [] Patient feels connected with others/family/visitors/staff [] Distress [] Loneliness/isolation [] Abandonment Spirituality of Patient [] Person of Ilda [] Attends Catholic of their Ilda [] Believes in Prayer [] Reads Bible or Yazdanism materials [] There are Spiritual issues to be addressed Outside Installation Machinist Interventions [x] Prayer [] Active listening [] Non-anxious presence [] Spiritual/emotional support [] Crisis/trauma care [] Spiritual counseling [] Bereavement support [] Provided bereavement packet [] Provided Bible/devotional materials [] Provided toy/stuffed animal, coloring book to patient or family member [] Provided Communion [] Anointing/[place] [] Salvation [x] Completed spiritual assessment [] Other: Impact on Illness or Injury [] Angry [] Fearful [] Anxious [] Often cries [] Exhaustion [] Unable to work [] Unable to attend confucianism [] Unable to walk/stand [] Unable to read [] Unable to drive [] Unable to eat/drink [] Unable to sleep [] Unable to be with family [] Patient intubated [] Other: Summary Time spent with patient
--- NOTE | 2021-06-30 10:19 | PM.PN ---
Subjective Subjective: Patient is doing well, currently receiving dialysis Medications: Reviewed: Yes Vitals/I&O/Wt Last Vital Signs Temp 98.3 F 06/30/21 07:28 Pulse 105 H 06/30/21 08:21 Resp 16 06/30/21 08:21 BP 165/96 06/30/21 09:27 Pulse Ox 96 06/30/21 08:21 06/29/21 06/30/21 06/30/21 22:59 06:59 14:59 Intake Total 904.000 / 2923.667 1269.667 / 2923.667 Output Total 130 / 460 300 / 460 Balance 774.000 / 2463.667 969.667 / 2463.667 Weight last 48 hrs Weight 219 lb 3.2 oz Weight 205 lb Physical Exam Narrative: Left IJ temporary dialysis catheter in place: Dressings dry and intact Urinary Catheter Management: Blue: Cath Placed During This Visit: yes Urethral Indwelling: Yes Reason for Continuing Indwelling Catheter: Accurate Measurement of Urinary Output in Critically Ill Patients Urinary Catheter Date of Insertion: 06/27/21 Urinary Catheter Time of Insertion: 10:20 Data : 06/30/21 03:34 06/30/21 03:34 Micro: Microbiology 06/27/21 13:49 Catheter Tip Culture - Preliminary Other Source 06/27/21 13:00 Gram Stain - Final Sputum - Endotracheal Tube Aspirate Sputum Culture - Final A&P Assessment and plan (1) S/P hemodialysis catheter insertion: Status post temporary dialysis catheter placement. Patient receiving dialysis, catheter is functioning well Await hospitalist and nephrology recs regarding replacement of temporary dialysis catheter with tunneled dialysis catheter. The temporary catheter was passed over a guidewire at the site of the previously placed left IJ tunneled hemodialysis catheter Status: Acute Attestations Medical Necessity Statement*: As per primary Coding Level of Care Code Acute Resident Caregiver for g Fwd Diagnoses S/P hemodialysis catheter insertion Z99.2
--- NOTE | 2021-06-30 11:07 | P.PN_ITS ---
Subjective Subjective: Patient is afebrile, hypertensive, Cardene drip to be weaned off gradually, he has not been getting clonidine, patient is stating that he takes clonidine 3 times a day I have asked [facility] ICU nurse to schedule his clonidine and wean off Cardene His permacath can be placed tomorrow, he has remained clinically stable, blood cultures are negative to date Case discussed with Dr. Almeida who will discuss echocardiogram with Dr. Gonzalez today Patient can be transferred out of ICU to CSU once Cardene drip has been turned off Blue catheter can be removed, urine output 430 mL Right forearm sutures removed Plan for another dialysis session today Vitals/I&O/Wt Last Vital Signs Temp 98.3 F 06/30/21 10:00 Pulse 105 H 06/30/21 10:00 Resp 16 06/30/21 10:00 BP 165/96 06/30/21 10:00 Pulse Ox 96 06/30/21 10:00 06/29/21 06/30/21 06/30/21 22:59 06:59 14:59 Intake Total 904.000 / 9071.984 5270.667 / 2923.667 Output Total 130 / 160 300 / 460 Balance 774.000 / 1494.000 969.667 / 2463.667 Weight last 48 hrs Weight 99.427 kg Weight 92.986 kg Physical Exam Narrative: Patient is laying comfortably in his bed Saturating well on room air Does use 4 L of oxygen at night Ascites of abdomen however no peritonitis nontender abdomen, multiple skin tattoos Hepatomegaly Does not look extremely fluid overloaded No active shortness of breath or chest pain Nonfocal neuro exam Left IJ temporary dialysis catheter in place Blue catheter draining dilute urine No signs of edema of legs Urinary Catheter Management: Blue: Cath Placed During This Visit: yes Urethral Indwelling: Yes Reason for Continuing Indwelling Catheter: Accurate Measurement of Urinary Output in Critically Ill Patients Urinary Catheter Date of Insertion: 06/27/21 Urinary Catheter Time of Insertion: 10:20 Data : 06/30/21 03:34 06/30/21 03:34 Micro: Microbiology 06/27/21 13:49 Catheter Tip Culture - Preliminary Other Source 06/27/21 13:00 Gram Stain - Final Sputum - Endotracheal Tube Aspirate Sputum Culture - Final A&P Assessment and plan (1) Hypertensive emergency: Status: Acute (2) Anemia in chronic kidney disease: Status: Chronic (3) Alport syndrome: Status: Chronic (4) 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 (5) Hemodialysis catheter infection: Status: Acute Qualifiers: Encounter type: subsequent encounter Qualified Code(s): T82.7XXD - Infection and inflammatory reaction due to other cardiac and vascular devices, implants and grafts, subsequent encounter (6) MRSA bacteremia: Status: Acute (7) ESRD (end stage renal disease) on dialysis: Status: Chronic (8) Diastolic heart failure: Status: Chronic Qualifiers: Heart failure chronicity: acute on chronic Qualified Code(s): I50.33 - Acute on chronic diastolic (congestive) heart failure (9) Mitral regurgitation: Status: Acute (10) Tricuspid regurgitation: Status: Acute (11) Acute respiratory failure with hypoxia: Status: Acute Plan Acute respiratory failure secondary to altered mental status after episode of vomiting while getting CT scan intubated 06/27 Patient extubated 06/28 successfully to 4 L of cannula, currently doing well on room air, does use 2 L at night MRSA bacteremia history Blood cultures negative to date, afebrile, no severe leukocytosis noted Echo does reveal vegetation No signs of valvular abscess Severe tricuspid and mitral valve regurgitation Preserved ejection fraction, Case discussed with Dr. Almeida who is planning to discuss further with Dr. Gonzalez Considering young age and persistent bacteremia with severe valvular regurgitation he might need valvular intervention Temporary dialysis catheter was placed at the time of admission He has remained afebrile, no fever no severe leukocytosis No growth on culture for last 3 days If remains clinically stable, no fever, cultures remain negative we will asked Dr. Worthington to place permacath tomorrow morning Hepatic congestion with ascites related to right-sided heart failure due to severe tricuspid regurgitation Does not need paracentesis no signs of peritonitis Hypertensive emergency: Add clonidine today and wean off Cardene End-stage renal disease/Alport syndrome: Dialysis today, At the time of admission he was diagnosed with severe sepsis possible hypovolemic shock at the time of admission, off vasopressors No signs of bacteremia No signs of cardiac tamponade or PE Can be transferred out of ICU to [facility] once off Cardene drip Clinically doing much better Continue IV antibiotics, de-escalate tomorrow if stays stable Remove Blue catheter today Renal dialysis diet Right forearm sutures removed by orthopedic Attestations Medical Necessity Statement*: Can be transferred out of ICU once off Cardene Time Spent in Patient Care: 25 minutes Coding Level of Care Code Acute Replenishment Merchandising Associate for g Fwd Diagnoses Hypertensive emergency I16.1 Anemia in chronic kidney disease N18.9; D63.1 Alport syndrome Q87.81 Endocarditis due to Staphylococcus I33.0; B95.8 Hemodialysis catheter infection T82.7XXD Encounter type: subsequent encounter MRSA bacteremia R78.81; B95.62 ESRD (end stage renal disease) on dialysis N18.6; Z99.2 Diastolic heart failure I50.33 Heart failure chronicity: acute on chronic Mitral regurgitation I34.0 Tricuspid regurgitation I07.1 Acute respiratory failure with hypoxia J96.01
[2021-06-30 11:23] LABS: Glucose Point of Care 105 mg/dL (70-110)
[2021-06-30] MEDS: minoxidil 10 mg Tablet 5 MG PO (12:09)
[2021-06-30] MEDS: carvedilol 25 mg Tablet PO ×2 (12:09→18:02)
[2021-06-30] MEDS: NIFEdipine ER (24 hr) 30 mg Tablet 90 MG PO (12:35)
[2021-06-30] MEDS: heparin, porcine 1,000 unit/mL INJ 10 mL 10000 UNIT HE (12:53)
--- NOTE | 2021-06-30 15:18 | P.CONIM_ITS ---
Providers/Reason For Consult Consulting Physician/Specialty*: Dr. Almeida/cardiothoracic surgery Reason for Consult*: Mitral valve regurgitation Requesting Physician: Dr. Gutierrez Attending Physician: Fredy Gutierrez MD Primary Care Provider: Kumar Carvajal MD History of Present Illness History of Present Illness Link Ann is a 35 year old male with a Alport syndrome who has been on hemodialysis for about a year and a half. He also has hearing difficulties. He was admitted on June 27 upon presentation to EMS with altered mental status and hypotension. 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 He had several dialysis catheters removed and replaced due to MRSA. Last cultures for recent discharge on June 19 were negative for MRSA. He was electively intubated upon presentation due to altered mental status. He was initiated on pressor agents and antibiotics with steady improvement. He is now been extubated and is resting comfortably in ICU bed 9. He has had 2 echocardiograms. BALTAZAR on June 27 described normal LV function and normal RV size and function. There was severe, eccentric mitral regurgitation noted. There was echogenic mass on the posterior mitral valve leaflet. Also determined by exam to have moderate to severe eccentric tricuspid regurgitation but no vegetation was seen. The study felt there was no substantial change from her prior BALTAZAR of June 09. There was some concern for potential aortic root abscess as the echo was suspicious for perivalvular changes. CTA was performed, this was not an EKG gated study. No definitive evidence for aortic root abscess could be determined. Presently, Mr. Ann has a temporary dialysis catheter in place and is scheduled for tunneled dialysis catheter to be placed either tomorrow or Wednesday. He is resting comfortably and preparations are underway for transfer out of the ICU. All cultures obtained during this hospital stay have been negative to date and included blood and catheter tip. Most recent positive culture was from an arm abscess on June 11 which had MRSA. He is also had positive blood culture as recently as June 09 with MRSA. Mr. Ann states that his abdominal ascites has been present for some time. I Reviewed the most recent echocardiograms and conferred with my colleague Dr. Gonzalez. Review of Systems Const: Reports: fatigue Eyes: Denies: change in vision ENMT: Denies: throat pain Card: Reports: edema, swelling of feet/ankles and lightheadedness; Denies: chest pain Resp: Reports: dyspnea and non-productive cough; Denies: hemoptysis GI: Reports: early satiety; Denies: abdominal pain or coffee ground emesis Musc: Denies: neck pain Psych: Denies: anxiety or depression Medications/Allergies Home Medications Medication Instructions Recorded Confirmed Last Taken Type minoxidil 10 mg tablet 5 mg PO DAILY 04/09/21 06/27/21 Unknown History pantoprazole 40 mg tablet,delayed 40 mg PO DAILY 04/09/21 06/27/21 Unknown History release carvedilol 25 mg tablet 25 mg PO BID 06/07/21 06/27/21 Unknown History nifedipine 90 mg tablet,extended 90 mg PO DAILY 06/07/21 06/27/21 Unknown History release clonidine HCl 0.1 mg tablet 0.1 mg PO TID 30 Days #90 tab 06/19/21 06/27/21 Unknown Rx ferrous gluconate 324 mg (37.5 mg 324 mg PO BIDWM 30 Days #60 tab 06/19/21 06/27/21 Unknown Rx iron) tablet hydralazine 50 mg tablet 50 mg PO TID 30 Days #90 tab 06/19/21 06/27/21 Unknown Rx sevelamer carbonate 800 mg tablet 1,600 mg PO TID 30 Days #180 tab 06/19/21 06/27/21 Unknown Rx vancomycin 1,000 mg intravenous See Rx Instructions .ROUTE 06/19/21 06/27/21 Unknown Rx injection .COMPLEX #10 ea lactulose 10 gram/15 mL oral 30 ml PO DAILY PRN 06/27/21 06/27/21 Unknown History solution Allergies Allergy/AdvReac Type Severity Reaction Status Date / Time strawberry Allergy Mild ALGY-Rash Verified 06/18/21 16:08 Current Medications Generic Name Dose Route Start Last Admin Trade Name Freq PRN Reason Stop Dose Admin Albuterol/Ipratropium 3 ml 06/27/21 21:00 06/30/21 08:18 Ipratropium-Albuterol 3 Ml Neb INHALATION 3 ml Q6H.RESPIRATORY VASHTI Administration Amlodipine Besylate 10 mg 06/29/21 22:15 06/29/21 23:06 Amlodipine 10 Mg Tablet PO 10 mg ONCE VASHTI Administration Amlodipine Besylate 10 mg 06/30/21 09:00 06/30/21 09:28 Amlodipine 10 Mg Tablet PO 10 mg DAILY VASHTI Administration Carvedilol 25 mg 06/30/21 11:40 06/30/21 12:09 Carvedilol 25 Mg Tablet PO 25 mg BID VASHTI Administration Clonidine HCl 0.1 mg 06/30/21 09:00 06/30/21 09:27 Clonidine 0.1 Mg Tablet PO 0.1 mg TID VASHTI Administration Dextrose 25 ml 06/27/21 17:15 06/27/21 17:26 Dextrose 50% Sdv 50 Ml IVP 25 ml ONCE PRN Administration hypoglycemia protocol Protocol Docusate Sodium 100 mg 06/29/21 09:00 06/30/21 09:27 Docusate Sodium 100 Mg Capsule PO 100 mg BID VASHTI Administration Heparin Sodium (Porcine) 5,000 unit 06/27/21 18:00 06/30/21 05:32 Heparin 5,000 Unit/Ml Inj 1 Ml SUBCUT 5,000 unit Q12H VASHTI Administration Piperacillin Sod/Tazobactam 50 mls @ 12.5 mls/hr 06/27/21 19:00 06/30/21 06:32 Sod 3.375 gm/ Dextrose IV 12.5 mls/hr Q12H VASHTI Administration Nicardipine HCl 25 mg/ Sodium 250 mls @ 0 mls/hr 06/30/21 08:30 06/30/21 13:50 Chloride IV 9 mg/hr .Q0M VASHTI 90 mls/hr Administration Protocol Per Protocol Insulin Human Lispro 0 unit 06/27/21 21:00 06/29/21 20:40 Insulin Lispro 100 Unit/1 Ml SUBCUT Not Given BEDTIME VASHTI Protocol Insulin Human Lispro 0 unit 06/27/21 14:57 06/30/21 11:58 Insulin Lispro 100 Unit/1 Ml SUBCUT Not Given TIDWM [facility] Protocol Minoxidil 5 mg 06/30/21 11:40 06/30/21 12:09 Minoxidil 10 Mg Tablet PO 5 mg DAILY VASHTI Administration Multivitamins 1 each 06/29/21 09:00 06/30/21 09:27 K-Ifvbvnx-Hdhnofy C Tablet PO 1 each DAILY VASHTI Administration Nifedipine 90 mg 06/30/21 12:30 06/30/21 12:35 Nifedipine Er (24 Hr) 30 Mg Tablet PO 90 mg DAILY VASHTI Administration Pantoprazole Sodium 40 mg 06/28/21 09:00 06/30/21 09:28 Pantoprazole 40 Mg Sdv IVP 40 mg DAILY VASHTI Administration Polyethylene Glycol 17 gm 06/29/21 09:00 06/30/21 09:28 Polyethylene Glycol 3350 Pkt 17 Gm PO Not Given BID VASHTI Sevelamer Carbonate 1,600 mg 06/29/21 09:00 06/30/21 09:28 Sevelamer 800 Mg Tablet PO 1,600 mg TID VASHTI Administration PFSH Acute PFSH: Medical History Alport syndrome Anemia in chronic kidney disease Dialysis AV fistula malfunction left forearm Diastolic heart failure with LVH 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 Suggestive of endocarditis. Features of severe mitral regurgitation with a regurgitant fraction of 69.6% Moderately severe tricuspid regurgitation Normal LV size ejection fraction. Biatrial enlargement, right worse than the left. No pericardial effusion. Possible small patent foramen ovale. HTN (hypertension) Jugular vein occlusion, right MRSA bacteremia (05/2021) Severe mitral regurgitation Tricuspid regurgitation Surgical History Fistula Left forearm, non-functioning 05/2021 History of incision and drainage (06/11/21) right forearm abscess S/P hemodialysis catheter insertion -Tunneled right IJ HD catheter placed in [place], [place] removed 06/10/21 -Right femoral HD line placed 06/13/21 -Left IJ tunneled catheter placed 06/18/21 with same day removal of right femoral temporary HD catheter Family History Other Alport syndrome ESRD (end stage renal disease) Social History Smoking and tobacco status: never smoked Alcohol intake: never Other details last substance use: Marijuana. Denies any other. Denies IVDU. Lives independently: Yes Household members: spouse Marital status: Current occupational status: unemployed Vitals/I&O/Wt Last Vital Signs Temp 98.3 F 06/30/21 12:00 Pulse 105 H 06/30/21 12:00 Resp 16 06/30/21 12:00 BP 165/96 06/30/21 12:00 Pulse Ox 96 06/30/21 12:00 06/30/21 06/30/21 06/30/21 06:59 14:59 22:59 Intake Total 1269.667 / 2923.667 226.5 / 226.5 Output Total 300 / 460 Balance 969.667 / 2463.667 226.5 / 226.5 Weight last 48 hrs Weight 219 lb 3.2 oz Weight 205 lb Physical Exam Narrative: Numerous tattoos over the upper thorax and upper extremities bilaterally Const: COMMON NORMALS: no acute distress and patient oriented x3 HENMT: COMMON NORMALS: normocephalic and atraumatic; hearing grossly not normal bilaterally HEAD & SCALP: normocephalic and atraumatic GENERAL EAR: hearing grossly impaired Eye: COMMON NORMALS: Equal, round and reactive pupils present, EOMs intact bilaterally, conjunctivae normal and no scleral icterus CONJUNCTIVA: Yes conjunctivae normal PUPIL: Yes Equal, round and reactive pupils present Neck/C-Spine: COMMON NORMALS: full ROM, no lymphadenopathy, supple and No carotid bruits Chest: COMMONS NORMALS: normal inspection of the chest and normal palpation of entire chest wall Resp: COMMON NORMALS: normal respiratory effort and No use of accessory muscles EFFORT & INSPECTION: Yes able to speak in complete sentences and Yes symmetric chest movement AUSCULTATION: crackles Cardio: COMMON NORMALS: S1 normal heart sound present RATE: tachycardic HEART SOUNDS: S1 normal heart sound present and Murmur heart sound present systolic Location: apex Intensity: III/ Timing: mid BRUITS: no abdominal aortic bruits and no carotid bruits GI: INSPECTION: Yes Localized GI swelling present PALPATION: Yes Ascites present and No Rebound tenderness present Extremity: COMMON NORMALS: normal to inspection; negative for no pedal edema NARRATIVE EXTREMITY EXAM: 1+ pretibial edema bilaterally. Neuro: COMMON NORMALS: patient oriented x3, moves all extremities and no focal motor deficits Psych: COMMON NORMALS: Normal thought process present and cooperative THOUGHT PROCESS: Normal thought process present Urinary Catheter Management: Blue: Cath Placed During This Visit: yes Urethral Indwelling: Yes Reason for Continuing Indwelling Catheter: Accurate Measurement of Urinary Output in Critically Ill Patients Urinary Catheter Date of Insertion: 06/27/21 Urinary Catheter Time of Insertion: 10:20 Data : 06/30/21 03:34 06/30/21 03:34 Micro: Microbiology 06/27/21 13:49 Catheter Tip Culture - Final Other Source 06/27/21 13:00 Gram Stain - Final Sputum - Endotracheal Tube Aspirate Sputum Culture - Final CXR: My impression: Chest x-ray of June 27 revealed cardiomegaly with otherwise relatively clear lung farley. CT of the chest revealed soft tissue edema and anasarca. Dilated right heart structures with marked dilation of the right atrium. Moderate dilation of the left heart. Extensive hepatomegaly with congestion noted. Abdominal ascites noted. A&P Assessment and plan (1) Mitral regurgitation: Severe mitral valve regurgitation with questionable vegetation on the atrial surface of the posterior leaflet. The regurgitant jet is eccentric as it is on the tricuspid valve. Ejection fraction described as preserved though this is in the face of substantial regurgitation. As of now, all cultures obtained during this hospitalization have returned negative so he has clearly had MRSA noted in several cultures in the recent hospitalizations. Best approach is currently under discussion with Dr. Agosto in relation to this gentlemen's relatively young age and end-stage renal disease requiring hemodialysis 3 times weekly. In relation to surgical options, if mitral valve replacement were required, bioprosthetic valve would be noted to have potential for early calcification in the face of need for hemodialysis. Mechanical valve would require substantial anticoagulation with an average INR of 3-3.5. Depending on the amount of debridement required for the mitral valve, repair and efficacy of repair are not completely known to the time of the procedure. This would necessitate placement of a least an angioplasty ring and would probably require the same of the tricuspid valve. Consideration is whether MitraClip would be an option as a bridging mechanism to improve mitral valve function and subsequent allow for more definitive surgery at a later date such a time that hopefully definitive surgery will be a lifelong lasting option. We will have further discussions with Halie Marissa and with other providers as we attempt to formulate best approach for this challenging situation. Status: Acute Consult Attestations Medical Necessity Statement: Severe mitral valve regurgitation with moderately severe tricuspid valve regurgitation General gentleman with end-stage renal disease requiring hemodialysis. Coding Level of Care Code New Pt Acute Examining Chair Assembler for Chg Fwd Patient Type New History Detailed Exam Detailed Medical Decision Making Moderate Complexity Diagnoses Mitral regurgitation I34.0 Time Spent (min) 35
[2021-06-30] MEDS: vancomycin 1,000 MG in sodium chloride 0.9% 250 ML 250 MG IV (15:24)
[2021-06-30 16:29] LABS: Glucose Point of Care 93 mg/dL (70-110)
--- NOTE | 2021-06-30 19:07 | PC.HD ---
PASTORAL WORKER turned off Nicardipine gtt at start of treatment but pt progressively more hypertensive until gtt was turned back on. Pt had some non-sustained bradycardia, rate 40s, while sleeping, PASTORAL WORKER aware, suspect it is related to sleep apnea.
--- NOTE | 2021-06-30 19:53 | PC.NURSE ---
Arben britt running at 7mg upon initial assessment.
[2021-06-30 20:14] LABS: Glucose Point of Care 160 mg/dL (70-110)
[2021-06-30] MEDS: insulin lispro 100 unit/1 mL SUBCUT (20:19)
[2021-07-01] VITALS (40 sets, daily range): BP systolic 78–149; BP diastolic 52–94; PULSE 61–99; RESP 5–27; TEMP 36.8–37.2; O2SAT 90–100
[2021-07-01 03:57] LABS: Basophils # 0.1 10^3/uL (0.0-0.1); Basophils % 1.3 %; Eosinophils # 0.5 10^3/uL (0.0-0.8); Eosinophils % 5.7 %; Hematocrit 26.3 % (42.0-52.0); Hemoglobin 8.1 g/dL (11.7-16.6); Lymphocytes # 1.1 10^3/uL (0.8-4.8); Lymphocytes % 13.6 %; Mean Corpuscular HGB Conc 30.8 g/dL (30.0-36.0); Mean Corpuscular Hemoglobin 27.8 pg (28.0-34.0); Mean Corpuscular Volume 90.4 fl (80-94); Mean Platelet Volume 10.5 fL (7.4-10.4); Monocytes # 0.7 10^3/uL (0.2-0.9); Monocytes % 7.9 %; Neutrophils # 5.96 10^3/uL (1.8-7.7); Nucleated Red Blood Cells % 0 %; Platelet Count 184 10^3/cmm (130-400); Red Blood Count 2.91 10^6/uL (4.1-5.3); Red Cell Distribution Width 21.1 % (12.1-15.1); White Blood Count 8.4 10^3/uL (4.0-10.0)
[2021-07-01 04:24] LABS: Vancomycin Random 27.2 ug/mL (20.0-40.0)
[2021-07-01 04:26] LABS: Alanine Aminotransferase 6 U/L (0-41); Albumin Level 3.8 g/dL (3.5-5.2); Alkaline Phosphatase 94 IU/L (40-130); Anion Gap 21.1 (5-19); Aspartate Amino Transferase 12 U/L (0-40); Blood Urea Nitrogen 37 mg/dL (6-20); Calcium 8.6 mg/dL (8.5-10.5); Carbon Dioxide 24 mmol/L (22-29); Chloride 102 mmol/L (98-107); Globulin 2.8 g/dL (1.3-4.6); Glomerular Filtration Rate 7.2 mL/min (90-130); Glucose 105 mg/dL (65-115); Magnesium 2.1 mg/dL (1.7-2.3); Osmolality Calculated 303 mOsm/kg (285-295); Phosphorus 4.5 mg/dL (2.5-4.5); Potassium 5.1 mmol/L (3.5-5.1); Sodium 142 mmol/L (136-145); Total Bilirubin 0.5 mg/dL (0.15-1.2); Total Protein 6.6 g/dL (6.6-8.7)
[2021-07-01] MEDS: piperacillin-tazobactam 3.375 GM in dextrose 5% (plus) 50 ML IV (06:15)
--- NOTE | 2021-07-01 06:46 | PC.NURSE ---
Patient remained stable overnight. Cardene drip paused and off since 2137 last night and maintained normotensive blood pressures. Heart rate dipped down twice with sleep apnea to 48 bpm and then immediately recovered. No issues with HR since then. Remained on room air, total of 120ml urine output last night, no bowel movement. Snacks given before midnight, and he has been NPO since midnight.
--- NOTE | 2021-07-01 07:44 | P.PN_ITS ---
Subjective Subjective: feels better. dec edema and sob. no n/v/f/c/dunaway/d Medications: Reviewed: Yes Medication Review Details: Current Medications Acetaminophen (Acetaminophen 325 Mg Tablet) 650 mg PO Q6H PRN PRN Reason: MILD PAIN Albuterol/Ipratropium (Ipratropium-Albuterol 3 Ml Neb) 3 ml INHALATION Q6H.RESP IRATORY [facility] Last Admin: 07/01/21 03:52 Dose: Not Given Documented by: Amlodipine Besylate (Amlodipine 10 Mg Tablet) 10 mg PO ONCE [facility] Last Admin: 06/29/21 23:06 Dose: 10 mg Documented by: Amlodipine Besylate (Amlodipine 10 Mg Tablet) 10 mg PO DAILY [facility] Last Admin: 06/30/21 09:28 Dose: 10 mg Documented by: Carvedilol (Carvedilol 25 Mg Tablet) 25 mg PO BID [facility] Last Admin: 06/30/21 18:02 Dose: 25 mg Documented by: Clonidine HCl (Clonidine 0.1 Mg Tablet) 0.1 mg PO TID [facility] Last Admin: 06/30/21 20:07 Dose: 0.1 mg Documented by: Dextrose (Dextrose 50% Syringe 50 Ml) 50 ml IVP PRN PRN; Protocol PRN Reason: hypoglycemia protocol Dextrose (Dextrose 50% Sdv 50 Ml) 25 ml IVP ONCE PRN; Protocol PRN Reason: hypoglycemia protocol Last Admin: 06/27/21 17:26 Dose: 25 ml Documented by: Docusate Sodium (Docusate Sodium 100 Mg Capsule) 100 mg PO BID [facility] Last Admin: 06/30/21 18:02 Dose: 100 mg Documented by: Glucagon (Glucagon 1 Mg/Ml Inj 1 Ml) 1 mg IM ONCE PRN; Protocol PRN Reason: Adult Acute Hypoglycemia Prot. Heparin Sodium (Porcine) (Heparin 5,000 Unit/Ml Inj 1 Ml) 5,000 unit SUBCUT Q12H [facility] Last Admin: 06/30/21 18:02 Dose: 5,000 unit Documented by: Dextrose (D5w) 500 mls @ 100 mls/hr IV ONCE PRN; Protocol PRN Reason: Adult Acute Hypoglycemia Prot Norepinephrine Bitartrate 4 mg (/ Dextrose) 254 mls @ 0 mls/hr IV .Q0M [facility]; Protocol Piperacillin Sod/Tazobactam (Sod 3.375 gm/ Dextrose) 50 mls @ 12.5 mls/hr IV Q12H [facility] Last Admin: 07/01/21 06:15 Dose: 12.5 mls/hr Documented by: Propofol (Diprivan) 1,000 mg in 100 mls @ 0 mls/hr IV .Q0M [facility]; Protocol Albumin Human (Albumin) 12.5 gm in 50 mls @ 60 mls/hr IV PRN PRN PRN Reason: Hypotension and/or symptomatic Nicardipine HCl 25 mg/ Sodium (Chloride) 250 mls @ 0 mls/hr IV .Q0M VASHTI; Protocol Last Titration: 06/30/21 21:38 Dose: 0 mg/hr, 0 mls/hr Documented by: Vancomycin HCl 1,000 mg/ (Sodium Chloride) 250 mls @ 250 mls/hr IV MoWeFr [facility] Last Admin: 06/30/21 15:24 Dose: 250 mls/hr Documented by: Insulin Human Lispro (Insulin Lispro 100 Unit/1 Ml) 0 unit SUBCUT BEDTIME [facility]; Protocol Last Admin: 06/30/21 20:19 Dose: 1 unit Documented by: Insulin Human Lispro (Insulin Lispro 100 Unit/1 Ml) 0 unit SUBCUT TIDWM [facility]; Protocol Last Admin: 06/30/21 18:00 Dose: Not Given Documented by: Lactulose (Lactulose Oral Liq 20 Gm/30 Ml Udc) 20 gm PO DAILY PRN PRN Reason: Constipation Minoxidil (Minoxidil 10 Mg Tablet) 5 mg PO DAILY [facility] Last Admin: 06/30/21 12:09 Dose: 5 mg Documented by: Multivitamins (G-Ahfozve-Vzfldcw C Tablet) 1 each PO DAILY [facility] Last Admin: 06/30/21 09:27 Dose: 1 each Documented by: Nifedipine (Nifedipine Er (24 Hr) 30 Mg Tablet) 90 mg PO DAILY [facility] Last Admin: 06/30/21 12:35 Dose: 90 mg Documented by: Ondansetron HCl (Ondansetron 2 Mg/Ml Sdv 2 Ml) 4 mg IVP Q6H PRN PRN Reason: NAUSEA AND VOMITING Pantoprazole Sodium (Pantoprazole 40 Mg Sdv) 40 mg IVP DAILY [facility] Last Admin: 06/30/21 09:28 Dose: 40 mg Documented by: Polyethylene Glycol (Polyethylene Glycol 3350 Pkt 17 Gm) 17 gm PO BID [facility] Last Admin: 06/30/21 18:01 Dose: Not Given Documented by: Sevelamer Carbonate (Sevelamer 800 Mg Tablet) 1,600 mg PO TID [facility] Last Admin: 06/30/21 20:07 Dose: 1,600 mg Documented by: Vitals/I&O/Wt Last Vital Signs Temp 98.3 F 06/30/21 18:00 Pulse 89 07/01/21 06:01 Resp 16 07/01/21 06:01 BP 125/87 07/01/21 06:01 Pulse Ox 94 07/01/21 06:01 06/30/21 07/01/21 07/01/21 22:59 06:59 14:59 Intake Total 1429.834 / 2006.334 Output Total 250 / 3552 120 / 3672 Balance 1179.834 / -1545.666 -120 / -1665.666 Weight last 48 hrs Weight 95.935 kg Weight 97.8 kg Weight 99.427 kg Physical Exam Narrative: vs noted, NARD heent- nc/at, eomi, anicteric neck supple, left IJ temp catheter lungs crackles dec b/l heart reg, + XIMENA abd NT, ND, + bs ext 1+ edema neuro- a,a, o x 3 Urinary Catheter Management: Blue: Cath Placed During This Visit: yes, but has since been removed by the nurse Urethral Indwelling: Yes Reason for Continuing Indwelling Catheter: Decision to DC Catheter Urinary Catheter Date of Insertion: 06/27/21 Urinary Catheter Time of Insertion: 10:20 Date Urinary Catheter Removed: 06/30/21 Time Urinary Catheter Discontinued: 16:00 Data : 07/01/21 03:31 07/01/21 03:31 Micro: Microbiology 06/27/21 13:49 Catheter Tip Culture - Final Other Source A&P Assessment and plan (1) ESRD (end stage renal disease) on dialysis: 35 yr old man ESRD from alports syndrome w/ recent MRSA bacteremia and cardiac valve vegetations/ emdocarditis 1. ESRD- s/p hd yesterdey -repeat HD today or tomorrow based on staffing -Permacath removed. temp left IJ HD catheter- by Dr. Worthington- i believe was changed over a guidewire- same position- 2. HTN- improved -cont fluid removal on HD 2b. bradycardia- dec clonidine. may need to dec coreg as per cardiology 3. severe MR and TR bacteremia- vanco by level -trough under 20. renal dose zosyn -appreciate Dr. Valdes input 4. all cultures from this admission- NGTD 5. anemia- hgb down to 8.1 tsat 22%, ferritin 158 -eugenia 6. phos binders -recent pth 169- no vit d analouge seen and examined w/ RN- telehealth visit time spent 30 minutes Status: Chronic Plan see above Attestations Medical Necessity Statement*: endocarditis, esrd. PC removed- has temp HD catheter Time Spent in Patient Care: 16 - 35 minutes (>than 50% of time spent in counselling and/or direct pt care on unit) . Coding Level of Care Code Acute Business Mail Entry Clerk for Glendy Sanchez Diagnoses ESRD (end stage renal disease) on dialysis N18.6; Z99.2
[2021-07-01] MEDS: b-complex-vitamin c Tablet 1 EACH PO (09:42)
[2021-07-01] MEDS: carvedilol 25 mg Tablet PO (09:42)
[2021-07-01] MEDS: sevelamer 800 mg Tablet 1600 MG PO ×3 (09:42→21:59)
[2021-07-01] MEDS: docusate sodium 100 mg Capsule PO ×2 (09:42→17:32)
[2021-07-01] MEDS: minoxidil 10 mg Tablet 5 MG PO (09:42)
[2021-07-01] MEDS: amlodipine 10 mg Tablet PO (09:43)
[2021-07-01] MEDS: ferric gluconate 125 MG in sodium chloride 0.9% (100 ml) 100 ML 110 MG IV (09:43)
[2021-07-01] MEDS: NIFEdipine ER (24 hr) 30 mg Tablet 90 MG PO (09:43)
[2021-07-01] MEDS: pantoprazole 40 mg SDV IVP (09:43)
[2021-07-01] MEDS: polyethylene glycol 3350 Pkt 17 gm PO (09:44)
[2021-07-01] MEDS: insulin lispro 100 unit/1 mL SUBCUT (10:01)
[2021-07-01 10:15] LABS: Glucose Point of Care 153 mg/dL (70-110)
[2021-07-01 12:03] LABS: Glucose Point of Care 99 mg/dL (70-110)
--- NOTE | 2021-07-01 12:25 | PM.PN ---
Subjective Subjective: Patient afebrile, cultures negative to date, adequate urine output Hemoglobin 8.1 No signs of leukocytosis or febrile events overnight Blood pressure is stable Plan for dialysis today Vancomycin 27.2, hold vancomycin for a day No signs of bacteremia Plan for permacath placement tomorrow and then discharged with outpatient cardiology/[facility] follow-up Vitals/I&O/Wt Last Vital Signs Temp 98.3 F 06/30/21 18:00 Pulse 71 07/01/21 10:00 Resp 12 07/01/21 10:00 BP 124/86 07/01/21 10:00 Pulse Ox 99 07/01/21 10:00 06/30/21 07/01/21 07/01/21 22:59 06:59 14:59 Intake Total 1429.834 / 2006.334 240 / 240 Output Total 250 / 3552 120 / 3672 Balance 1179.834 / -1545.666 -120 / -1665.666 240 / 240 Weight last 48 hrs Weight 95.935 kg Weight 97.8 kg Weight 99.427 kg Physical Exam Narrative: Patient laying comfortably in his bed Saturating well on room air Multiple skin tattoos Bloated abdomen Ascites Hepatomegaly No orthopnea PND Low extremities no edema Awake and alert Nonfocal neuro exam No audible stridor or wheezing Urinary Catheter Management: Blue: Cath Placed During This Visit: yes, but has since been removed by the nurse Urethral Indwelling: Yes Reason for Continuing Indwelling Catheter: Decision to DC Catheter Urinary Catheter Date of Insertion: 06/27/21 Urinary Catheter Time of Insertion: 10:20 Date Urinary Catheter Removed: 06/30/21 Time Urinary Catheter Discontinued: 16:00 Data : 07/01/21 03:31 07/01/21 03:31 Micro: Microbiology 06/27/21 13:49 Catheter Tip Culture - Final Other Source A&P Assessment and plan (1) Tricuspid regurgitation: Status: Acute (2) Mitral regurgitation: Status: Acute (3) Hypertensive emergency: Status: Acute (4) Anemia in chronic kidney disease: Status: Chronic (5) Alport syndrome: Status: Chronic (6) Abscess of right forearm: Status: Acute (7) MRSA bacteremia: Status: Acute (8) ESRD (end stage renal disease) on dialysis: Status: Chronic (9) Diastolic heart failure: Status: Chronic Qualifiers: Heart failure chronicity: acute on chronic Qualified Code(s): I50.33 - Acute on chronic diastolic (congestive) heart failure Plan Patient was extubated 06/28 Patient is doing well on room air uses 4 L of oxygen at night Severe TR, MR Dr. Almeida's recommendations reviewed Case discussed with Dr. Gonzalez today Cultures negative to date Afebrile No leukocytosis Can hold vancomycin because of high trough level End-stage renal disease: Plan to place permacath tomorrow morning we will keep him n.p.o. after midnight Hold anticoagulating agent MRSA bacteremia history, no recurrence Hepatic congestion and ascites, no acute decompensation Diastolic heart failure without acute decompensation Hypertensive emergency: Off Cardene drip currently doing well on p.o. antihypertensive regimen after initiation of home medications Closely monitor for any signs of hypotension or bradycardia No signs of bacteremia, Diagnosed with severe sepsis at the time of admission I do believe his symptoms are not related to severe sepsis Multiple antihypertensive regimen and fluid removal at dialysis probably related to hypotensive episode Okay to transfer out of ICU Can be discharged tomorrow Dr. Gonzalez to coordinate his outpatient appointment at [facility] Renal dialysis diet Blue catheter has been removed Right forearm sutures removed, Appreciate cardiology, cardiothoracic, nephro recommendations Attestations Medical Necessity Statement*: Discharge tomorrow Time Spent in Patient Care: 20min Coding Level of Care Code Acute Sash Assembler for g Fwd Diagnoses Tricuspid regurgitation I07.1 Mitral regurgitation I34.0 Hypertensive emergency I16.1 Anemia in chronic kidney disease N18.9; D63.1 Alport syndrome Q87.81 Abscess of right forearm L02.413 MRSA bacteremia R78.81; B95.62 ESRD (end stage renal disease) on dialysis N18.6; Z99.2 Diastolic heart failure I50.33 Heart failure chronicity: acute on chronic
--- NOTE | 2021-07-01 12:56 | PC.HD ---
Patient is awaiting a CSU bed and is being kept in ICU until one becomes available. Per Dr. Gutierrez, patient is stable for HD in the dialysis room. Patient transported by dairy manager via wheelchair.
[2021-07-01] MEDS: heparin, porcine 1,000 unit/mL INJ 10 mL 10000 UNIT HE (15:41)
--- NOTE | 2021-07-01 16:39 | PM.PN ---
Subjective Subjective: Patient was in dialysis today, catheter is functioning well Vitals/I&O/Wt Last Vital Signs Temp 98.4 F 07/01/21 12:55 Pulse 97 07/01/21 12:55 Resp 16 07/01/21 12:55 BP 139/90 07/01/21 12:55 Pulse Ox 99 07/01/21 10:00 07/01/21 07/01/21 07/01/21 06:59 14:59 22:59 Intake Total 240 / 240 Output Total 120 / 3672 Balance -120 / -1665.666 240 / 240 Weight last 48 hrs Weight 211 lb 8 oz Weight 215 lb 9.793 oz Weight 219 lb 3.2 oz Physical Exam Narrative: Left IJ dialysis catheter in place Urinary Catheter Management: Blue: Cath Placed During This Visit: yes, but has since been removed by the nurse Urethral Indwelling: Yes Reason for Continuing Indwelling Catheter: Decision to DC Catheter Urinary Catheter Date of Insertion: 06/27/21 Urinary Catheter Time of Insertion: 10:20 Date Urinary Catheter Removed: 06/30/21 Time Urinary Catheter Discontinued: 16:00 Data : 07/01/21 03:31 07/01/21 03:31 Micro: Microbiology 06/27/21 13:49 Catheter Tip Culture - Final Other Source A&P Assessment and plan (1) S/P hemodialysis catheter insertion: Status post temporary dialysis catheter placement. Patient receiving dialysis, catheter is functioning well Plan for placement of tunneled dialysis catheter tomorrow N.p.o. after midnight Status: Acute Attestations Medical Necessity Statement*: As per primary Coding Level of Care Code Acute Insurance Analyst for [facility] Laura Diagnoses S/P hemodialysis catheter insertion Z99.2
[2021-07-01] MEDS: carvedilol 12.5 mg Tablet PO (17:31)
[2021-07-01] MEDS: cloNIDine 0.1 mg Tablet PO (17:32)
--- NOTE | 2021-07-01 17:35 | PC.NURSE ---
Patient had dialysis today. 3 Liters removed
[2021-07-01 17:47] LABS: Glucose Point of Care 100 mg/dL (70-110)
--- NOTE | 2021-07-01 17:58 | P.PN_ITS ---
Subjective Subjective: Patient is overall doing well. No complaints of chest pain or shortness of breath Vitals/I&O/Wt Last Vital Signs Temp 98.2 F 07/01/21 17:00 Pulse 89 07/01/21 17:00 Resp 13 07/01/21 17:00 BP 135/88 07/01/21 17:32 Pulse Ox 94 07/01/21 17:00 07/01/21 07/01/21 07/01/21 06:59 14:59 22:59 Intake Total 240 / 240 200 / 440 Output Total 120 / 3672 3000 / 3000 Balance -120 / -1665.666 240 / 240 -2800 / -2560 Weight last 48 hrs Weight 211 lb 8 oz Weight 215 lb 9.793 oz Weight 219 lb 3.2 oz Physical Exam Narrative: GENERAL: Patient is alert and oriented x3. NECK: No jugular vein distension. [] HEENT: No cyanosis. No icterus. No pallor. [] HEART: Regular S1 and S2. Has grade 3/6 systolic murmur[] LUNGS: Clear ABDOMEN: Soft CENTRAL NERVOUS SYSTEM:Intubated EXTREMITIES: Lower extremities with 1+ edema bilaterally. Pulses palpable in the lower extremities Urinary Catheter Management: Blue: Cath Placed During This Visit: yes, but has since been removed by the nurse Urethral Indwelling: Yes Reason for Continuing Indwelling Catheter: Decision to DC Catheter Urinary Catheter Date of Insertion: 06/27/21 Urinary Catheter Time of Insertion: 10:20 Date Urinary Catheter Removed: 06/30/21 Time Urinary Catheter Discontinued: 16:00 Data : 07/01/21 03:31 07/01/21 03:31 Micro: Microbiology 06/27/21 13:49 Catheter Tip Culture - Final Other Source A&P Assessment and plan (1) Alport syndrome: Status: Chronic (2) Acute respiratory failure with hypoxia: Status: Acute (3) Severe sepsis due to methicillin resistant Staphylococcus aureus (MRSA) with acute organ dysfunction: Status: Acute (4) Severe mitral regurgitation: Status: Acute (5) Tricuspid regurgitation: Status: Acute Qualifiers: Cardiac valve disease etiology: nonrheumatic Qualified Code(s): I36.1 - Nonrheumatic tricuspid (valve) insufficiency (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 TTE was unchanged for mitral and tricuspid valves however there is suspicion for aortic root abscess.? We tried to rule it out with CTA however it was nonconclusive.? Transesophageal echocardiogram was eventually performed that did not reveal aortic abscess. Continue antibiotics per ICU team. Significant improvement since admission. Now extubated. He is alert and oriented. Plan for transfer out of ICU today Evaluated by CT surgery team. Options discussed in heart team meeting given difficulty of proceeding with bioprosthetic valve replacement given his young a ge and ESRD and with mechanical mitral valve because of need for anticoagulation. As patient is stable, second opinion regarding surgical intervention can be obtained from a tertiary care center to explore alteranate options Thank you for involving us with care of this patient.? We will continue to follow.? Please call with questions. Attestations Medical Necessity Statement*: Care expected to cross 2 midnights Coding Level of Care Code Acute Ticketing Clerk for [facility] Fwd Diagnoses Alport syndrome Q87.81 Acute respiratory failure with hypoxia J96.01 Severe sepsis due to methicillin resistant Staphylococcus aureus (MRSA) with acute organ dysfunction A41.02; R65.20 Severe mitral regurgitation I34.0 Tricuspid regurgitation I36.1 Cardiac valve disease etiology: nonrheumatic Endocarditis due to Staphylococcus I33.0; B95.8 Hemodialysis catheter infection T82.7XXD Encounter type: subsequent encounter
--- NOTE | 2021-07-01 18:10 | PC.NURSE ---
SHift SUmmary: Uneventful shift. Patient rested in bed most of the day, but frequently sits on the side of the bed and occaisonally walks around the room. Went to dialysis and had 3 liters removed. Is on a 1500mL fluid restriction and at the time of this note has drank 800mL. Still has 700mL left until he becomes NPO at midnight. Is scheduled to have surgery tommorow.
[2021-07-01 22:30] LABS: Glucose Point of Care 107 mg/dL (70-110)
[2021-07-02] VITALS (35 sets, daily range): BP systolic 110–160; BP diastolic 70–113; PULSE 66–96; RESP 10–20; TEMP 36.3–37.6; O2SAT 84–99
--- NOTE | 2021-07-02 | SCC_ITS ---
Procedure done: 1. Exchange of temporary dialysis catheter to 16 Afghan 31 cm long AshSplit tunneled hemodialysis catheter in the left internal jugular vein 2. Fluoroscopic guidance and interpretation for placement of catheter 79.6 seconds of fluoroscopic guidance, for a cumulative dose of 15.6 mGy, was provided to Dr. Worthington by the radiology department. C-arm images of the chest were saved for the patient's permanent record. [facility]
[2021-07-02 06:02] LABS: Basophils # 0.1 10^3/uL (0.0-0.1); Basophils % 1.8 %; Eosinophils # 0.7 10^3/uL (0.0-0.8); Hematocrit 26.5 % (42.0-52.0); Hemoglobin 8.3 g/dL (11.7-16.6); Lymphocytes % 14.4 %; Mean Corpuscular HGB Conc 31.3 g/dL (30.0-36.0); Mean Corpuscular Hemoglobin 28.5 pg (28.0-34.0); Mean Corpuscular Volume 91.1 fl (80-94); Mean Platelet Volume 10.1 fL (7.4-10.4); Monocytes # 0.8 10^3/uL (0.2-0.9); Monocytes % 10.7 %; Neutrophils # 4.59 10^3/uL (1.8-7.7); Neutrophils % 63.7 %; Nucleated Red Blood Cells % 0 %; Platelet Count 218 10^3/cmm (130-400); Red Blood Count 2.91 10^6/uL (4.1-5.3); Red Cell Distribution Width 20.4 % (12.1-15.1); White Blood Count 7.2 10^3/uL (4.0-10.0)
[2021-07-02 06:24] LABS: Alanine Aminotransferase 6 U/L (0-41); Albumin Level 3.8 g/dL (3.5-5.2); Alkaline Phosphatase 97 IU/L (40-130); Anion Gap 17.3 (5-19); Aspartate Amino Transferase 11 U/L (0-40); Blood Urea Nitrogen 30 mg/dL (6-20); Calcium 9.3 mg/dL (8.5-10.5); Carbon Dioxide 29 mmol/L (22-29); Chloride 99 mmol/L (98-107); Globulin 3.1 g/dL (1.3-4.6); Glucose 98 mg/dL (65-115); Osmolality Calculated 298 mOsm/kg (285-295); Phosphorus 4.2 mg/dL (2.5-4.5); Potassium 4.3 mmol/L (3.5-5.1); Sodium 141 mmol/L (136-145); Total Bilirubin 0.3 mg/dL (0.15-1.2); Total Protein 6.9 g/dL (6.6-8.7)
[2021-07-02] MEDS: cloNIDine 0.1 mg Tablet PO (08:45)
[2021-07-02] MEDS: amlodipine 10 mg Tablet PO (08:45)
[2021-07-02] MEDS: carvedilol 12.5 mg Tablet PO (08:45)
[2021-07-02] MEDS: NIFEdipine ER (24 hr) 30 mg Tablet 90 MG PO (08:45)
--- NOTE | 2021-07-02 09:26 | P.PN_ITS ---
Subjective Subjective: no issues overnight , blood cultures have been negative so far Vitals/I&O/Wt Last Vital Signs Temp 98.5 F 07/02/21 07:57 Pulse 91 07/02/21 07:57 Resp 18 07/02/21 07:57 BP 160/98 07/02/21 07:57 Pulse Ox 91 07/02/21 07:57 07/01/21 07/02/21 07/02/21 22:59 06:59 14:59 Intake Total 680 / 920 Output Total 3000 / 3000 Balance -2320 / -2080 Weight last 48 hrs Weight 211 lb 8 oz Weight 215 lb 9.793 oz Physical Exam Narrative: Abdomen: soft Left neck: Temporary dialysis catheter in place Urinary Catheter Management: Blue: Cath Placed During This Visit: yes, but has since been removed by the nurse Urethral Indwelling: Yes Reason for Continuing Indwelling Catheter: Decision to DC Catheter Urinary Catheter Date of Insertion: 06/27/21 Urinary Catheter Time of Insertion: 10:20 Date Urinary Catheter Removed: 06/30/21 Time Urinary Catheter Discontinued: 16:00 Data : 07/02/21 05:17 07/02/21 05:17 A&P Assessment and plan (1) S/P hemodialysis catheter insertion: Status post temporary dialysis catheter placement. Patient receiving dialysis, catheter is functioning well Plan for placement of tunneled dialysis catheter today Status: Acute Attestations Medical Necessity Statement*: As per primary Coding Level of Care Code Acute Pain Management Nurse Practitioner for [facility] Fwd Diagnoses S/P hemodialysis catheter insertion Z99.2
--- NOTE | 2021-07-02 09:49 | P.PN_ITS ---
Subjective Subjective: feels better. wants to go home. Medications: Reviewed: Yes Medication Review Details: Current Medications Acetaminophen (Acetaminophen 325 Mg Tablet) 650 mg PO Q6H PRN PRN Reason: MILD PAIN Albuterol/Ipratropium (Ipratropium-Albuterol 3 Ml Neb) 3 ml INHALATION Q6H.RESPIRATORY PRN PRN Reason: SHORTNESS OF BREATH Amlodipine Besylate (Amlodipine 10 Mg Tablet) 10 mg PO ONCE [facility] Last Admin: 06/29/21 23:06 Dose: 10 mg Documented by: Amlodipine Besylate (Amlodipine 10 Mg Tablet) 10 mg PO DAILY [facility] Last Admin: 07/02/21 08:45 Dose: 10 mg Documented by: Carvedilol (Carvedilol 12.5 Mg Tablet) 12.5 mg PO BID [facility] Last Admin: 07/02/21 08:45 Dose: 12.5 mg Documented by: Clonidine HCl (Clonidine 0.1 Mg Tablet) 0.1 mg PO BID [facility] Last Admin: 07/02/21 08:45 Dose: 0.1 mg Documented by: Dextrose (Dextrose 50% Syringe 50 Ml) 50 ml IVP PRN PRN; Protocol PRN Reason: hypoglycemia protocol Dextrose (Dextrose 50% Sdv 50 Ml) 25 ml IVP ONCE PRN; Protocol PRN Reason: hypoglycemia protocol Last Admin: 06/27/21 17:26 Dose: 25 ml Documented by: Docusate Sodium (Docusate Sodium 100 Mg Capsule) 100 mg PO BID [facility] Last Admin: 07/02/21 07:37 Dose: Not Given Documented by: Glucagon (Glucagon 1 Mg/Ml Inj 1 Ml) 1 mg IM ONCE PRN; Protocol PRN Reason: Adult Acute Hypoglycemia Prot. Heparin Sodium (Porcine) (Heparin 5,000 Unit/Ml Inj 1 Ml) 5,000 unit SUBCUT Q12H [facility] Last Admin: 06/30/21 18:02 Dose: 5,000 unit Documented by: Dextrose (D5w) 500 mls @ 100 mls/hr IV ONCE PRN; Protocol PRN Reason: Adult Acute Hypoglycemia Prot Norepinephrine Bitartrate 4 mg (/ Dextrose) 254 mls @ 0 mls/hr IV .Q0M VASHTI; Protocol Propofol (Diprivan) 1,000 mg in 100 mls @ 0 mls/hr IV .Q0M VASHTI; Protocol Albumin Human (Albumin) 12.5 gm in 50 mls @ 60 mls/hr IV PRN PRN PRN Reason: Hypotension and/or symptomatic Nicardipine HCl 25 mg/ Sodium (Chloride) 250 mls @ 0 mls/hr IV .Q0M [facility]; Protocol Last Titration: 06/30/21 21:38 Dose: 0 mg/hr, 0 mls/hr Documented by: Vancomycin HCl 1,000 mg/ (Sodium Chloride) 250 mls @ 250 mls/hr IV MoWeFr [facility] Last Admin: 06/30/21 15:24 Dose: 250 mls/hr Documented by: Insulin Human Lispro (Insulin Lispro 100 Unit/1 Ml) 0 unit SUBCUT BEDTIME [facility]; Protocol Last Admin: 07/01/21 22:01 Dose: Not Given Documented by: Insulin Human Lispro (Insulin Lispro 100 Unit/1 Ml) 0 unit SUBCUT TIDWM [facility]; Protocol Last Admin: 07/02/21 07:35 Dose: Not Given Documented by: Lactulose (Lactulose Oral Liq 20 Gm/30 Ml Udc) 20 gm PO DAILY PRN PRN Reason: Constipation Minoxidil (Minoxidil 10 Mg Tablet) 5 mg PO DAILY [facility] Last Admin: 07/01/21 09:42 Dose: 5 mg Documented by: Multivitamins (J-Uqdiyyo-Wgkrogz C Tablet) 1 each PO DAILY [facility] Last Admin: 07/02/21 07:37 Dose: Not Given Documented by: Nifedipine (Nifedipine Er (24 Hr) 30 Mg Tablet) 90 mg PO DAILY [facility] Last Admin: 07/02/21 08:45 Dose: 90 mg Documented by: Ondansetron HCl (Ondansetron 2 Mg/Ml Sdv 2 Ml) 4 mg IVP Q6H PRN PRN Reason: NAUSEA AND VOMITING Pantoprazole Sodium (Pantoprazole 40 Mg Sdv) 40 mg IVP DAILY [facility] Last Admin: 07/01/21 09:43 Dose: 40 mg Documented by: Polyethylene Glycol (Polyethylene Glycol 3350 Pkt 17 Gm) 17 gm PO BID [facility] Last Admin: 07/02/21 07:36 Dose: Not Given Documented by: Sevelamer Carbonate (Sevelamer 800 Mg Tablet) 1,600 mg PO TID [facility] Last Admin: 07/02/21 07:36 Dose: Not Given Documented by: Vitals/I&O/Wt Last Vital Signs Temp 98.5 F 07/02/21 07:57 Pulse 91 07/02/21 07:57 Resp 18 07/02/21 07:57 BP 160/98 07/02/21 07:57 Pulse Ox 91 07/02/21 07:57 07/01/21 07/02/21 07/02/21 22:59 06:59 14:59 Intake Total 680 / 920 Output Total 3000 / 3000 Balance -2320 / -2080 Weight last 48 hrs Weight 95.935 kg Weight 97.8 kg Physical Exam Narrative: vs noted, NARD heent- nc/at, eomi, anicteric neck supple, left IJ temp catheter lungs crackles dec b/l heart reg, + XIMENA abd NT, ND, + bs ext 1+ edema neuro- a,a, o x 3 Urinary Catheter Management: Blue: Cath Placed During This Visit: yes, but has since been removed by the nurse Urethral Indwelling: Yes Reason for Continuing Indwelling Catheter: Decision to DC Catheter Urinary Catheter Date of Insertion: 06/27/21 Urinary Catheter Time of Insertion: 10:20 Date Urinary Catheter Removed: 06/30/21 Time Urinary Catheter Discontinued: 16:00 Data : 07/02/21 05:17 07/02/21 05:17 A&P Assessment and plan (1) ESRD (end stage renal disease) on dialysis: 35 yr old man ESRD from alports syndrome w/ recent MRSA bacteremia and cardiac valve vegetations/ emdocarditis 1. ESRD- s/p hd last couple of days -new permacath today by Dr. Worthington- -repeat HD in am -if to be d/c then HD today 2. HTN and severe MR and TR -per cardiology bacteremia- vanco by level -trough under 20. renal dose zosyn -appreciate Dr. Valdes input 3. all cultures from this admission- NGTD 4. anemia- hgb down to 8.1 tsat 22%, ferritin 158 -[place] 5. phos binders -recent pth 169- no vit d analouge seen and examined w/ RN- telehealth visit time spent 30 minutes Status: Chronic Plan see above Attestations Medical Necessity Statement*: per medicine and cardiology Time Spent in Patient Care: 16 - 35 minutes (>than 50% of time spent in counselling and/or direct pt care on unit) . Coding Level of Care Code Acute Office Specialist for [facility] Fwd Diagnoses ESRD (end stage renal disease) on dialysis N18.6; Z99.2
--- NOTE | 2021-07-02 10:12 | SC_ITS ---
WS: [id number] INTRAOPERATIVE TECHNIQUE: 3 Spot fluoroscopic images for intraoperative purposes. FLUOROSCOPY TIME: 79.6 seconds CLINICAL INFORMATION: dialysis cath COMPARISON: None. FINDINGS: Dual-lumen central venous catheters with tips in the distal SVC and RIGHT atrium. No visualized pneum othorax. SC/C-arm [place] for CVA [id number] IMPRESSION: Images obtained for intraoperative purposes.
--- NOTE | 2021-07-02 10:40 | ANES.PREANE2 ---
Pre-Anesthetic Assessment Height/Weight: Height 1.83 m Weight 95.935 kg Temp Pulse Resp BP Pulse Ox 98.4 F 86 18 158/113 96 07/02/21 10:30 07/02/21 10:30 07/02/21 10:30 07/02/21 10:30 07/02/21 10:30 Preop Diagnosis: crf Operation Date: 06/27/21 14:50 Proposed Procedures p Dialysis Catheter Insertion(Not Applicable) - Luis Worthington MD Operation Date: 07/02/21 11:20 Proposed Procedures p exchange of tunneled hemodialysis catheter(Not Applicable) - Luis Worthington MD Operation Date: 07/02/21 11:50 Proposed Procedures p Dialysis Catheter Insertion(Not Applicable) - Luis Worthington MD Familial anesthetic complications: None Was Beta Rupali taken within 24 hours: Yes Was Clonidine taken within 24 hours: Yes Last intake: Intake Last Liquid Date 07/01/21 Last Liquid Time 20:00 Last Solid Date 07/01/21 Last Solid Time 20:00 Social No alcohol and No tobacco Exam alert, oriented x 3, clear to auscultation bilaterally and regular rate & rhythm Airway Submandibular: within normal limits Cervical ROM: within normal limits Mallampati: Class II Dentition: chipped CV/HEM Congestive Heart Failure and Hypertension Severe MR Endocarditis TR DVT Hx TTE 06/27/21 CONCLUSIONS ?LV systolic function is normal with EF of 55-60% ?Moderate LVH ?Biatrial enlargement ?Severe eccenteric mitral regurgitation. Possible vegetation seen ?on atrial aspect of the posterior leaflet ?Aortic valve is thickened. Images suspicious for? ?perivalvular/aortic root abscess. Recommend further imaging with ?CTA/BALTAZAR to evaluate ?No aortic significant stenosis ?Severe tricuspid regurgitation ?Compared to prior echocardiogram from 06/08/2021, suspicion for ?aortic root/mumtaz aortic root abscess is new. Recommend assessing ?with CTA/BALTAZAR. Chronic Renal Failure Alport syndrome GI Gastroesophageal Reflux Disease Anesthetic Plan ASA status: 4 Anesthesia: Anesthesia Evaluation, General and MAC Other: We discussed risk and benefits of general anesthesia including PONV, sore throat (sometimes severe), corneal abrasion, positioning and peripheral nerve injuries, life threatening allergic reaction, post operative ICU admission requiring prolonged intubation, stroke, heart attack, , and rare incidences of recall. Patient consents to proceed with general anesthesia. Risk of > 500 ml blood loss (7ml/kg in children): No Medications/Allergies Home Medications Medication Instructions Recorded Confirmed Last Taken Type minoxidil 10 mg tablet 5 mg PO DAILY 04/09/21 06/27/21 Unknown History pantoprazole 40 mg tablet,delayed 40 mg PO DAILY 04/09/21 06/27/21 Unknown History release carvedilol 25 mg tablet 25 mg PO BID 06/07/21 06/27/21 Unknown History nifedipine 90 mg tablet,extended 90 mg PO DAILY 06/07/21 06/27/21 Unknown History release clonidine HCl 0.1 mg tablet 0.1 mg PO TID 30 Days #90 tab 06/19/21 06/27/21 Unknown Rx ferrous gluconate 324 mg (37.5 mg 324 mg PO BIDWM 30 Days #60 tab 06/19/21 06/27/21 Unknown Rx iron) tablet hydralazine 50 mg tablet 50 mg PO TID 30 Days #90 tab 06/19/21 06/27/21 Unknown Rx sevelamer carbonate 800 mg tablet 1,600 mg PO TID 30 Days #180 tab 06/19/21 06/27/21 Unknown Rx vancomycin 1,000 mg intravenous See Rx Instructions .ROUTE 06/19/21 06/27/21 Unknown Rx injection .COMPLEX #10 ea lactulose 10 gram/15 mL oral 30 ml PO DAILY PRN 06/27/21 06/27/21 Unknown History solution Allergies Allergy/AdvReac Type Severity Reaction Status Date / Time strawberry Allergy Mild ALGY-Rash Verified 06/18/21 16:08 Current Medications Generic Name Dose Route Start Last Admin Trade Name Bess PRN Reason Stop Dose Admin Amlodipine Besylate 10 mg 06/29/21 22:15 06/29/21 23:06 Amlodipine 10 Mg Tablet PO 10 mg ONCE VASHTI Administration Amlodipine Besylate 10 mg 06/30/21 09:00 07/02/21 08:45 Amlodipine 10 Mg Tablet PO 10 mg DAILY VASHTI Administration Carvedilol 12.5 mg 07/01/21 18:00 07/02/21 08:45 Carvedilol 12.5 Mg Tablet PO 12.5 mg BID VASHTI Administration Clonidine HCl 0.1 mg 07/01/21 18:00 07/02/21 08:45 Clonidine 0.1 Mg Tablet PO 0.1 mg BID VASHTI Administration Dextrose 25 ml 06/27/21 17:15 06/27/21 17:26 Dextrose 50% Sdv 50 Ml IVP 25 ml ONCE PRN Administration hypoglycemia protocol Protocol Docusate Sodium 100 mg 06/29/21 09:00 07/02/21 07:37 Docusate Sodium 100 Mg Capsule PO Not Given BID [facility] Heparin Sodium (Porcine) 5,000 unit 06/27/21 18:00 06/30/21 18:02 Heparin 5,000 Unit/Ml Inj 1 Ml SUBCUT 5,000 unit Q12H VASHTI Administration Nicardipine HCl 25 mg/ Sodium 250 mls @ 0 mls/hr 06/30/21 08:30 06/30/21 21:38 Chloride IV 0 mg/hr .Q0M VASHTI 0 mls/hr Titration Protocol Per Protocol Vancomycin HCl 1,000 mg/ 250 mls @ 250 mls/hr 06/30/21 15:00 06/30/21 15:24 Sodium Chloride IV 250 mls/hr MoWeFr VASHTI Administration Insulin Human Lispro 0 unit 06/27/21 21:00 07/01/21 22:01 Insulin Lispro 100 Unit/1 Ml SUBCUT Not Given BEDTIME VASHTI Protocol Insulin Human Lispro 0 unit 06/27/21 14:57 07/02/21 07:35 Insulin Lispro 100 Unit/1 Ml SUBCUT Not Given TIDWM [facility] Protocol Minoxidil 5 mg 06/30/21 11:40 07/01/21 09:42 Minoxidil 10 Mg Tablet PO 5 mg DAILY [facility] Administration Multivitamins 1 each 06/29/21 09:00 07/02/21 07:37 Z-Aqscwga-Xouykig C Tablet PO Not Given DAILY [facility] Nifedipine 90 mg 06/30/21 12:30 07/02/21 08:45 Nifedipine Er (24 Hr) 30 Mg Tablet PO 90 mg DAILY VASHTI Administration Pantoprazole Sodium 40 mg 06/28/21 09:00 07/01/21 09:43 Pantoprazole 40 Mg Sdv IVP 40 mg DAILY [facility] Administration Polyethylene Glycol 17 gm 06/29/21 09:00 07/02/21 07:36 Polyethylene Glycol 3350 Pkt 17 Gm PO Not Given BID [facility] Sevelamer Carbonate 1,600 mg 06/29/21 09:00 07/02/21 07:36 Sevelamer 800 Mg Tablet PO Not Given TID [facility] Additional Medication Information Current Medications Acetaminophen (Acetaminophen 325 Mg Tablet) 650 mg PO Q6H PRN PRN Reason: MILD PAIN Albuterol/Ipratropium (Ipratropium-Albuterol 3 Ml Neb) 3 ml INHALATION Q6H.RESPIRATORY PRN PRN Reason: SHORTNESS OF BREATH Amlodipine Besylate (Amlodipine 10 Mg Tablet) 10 mg PO ONCE [facility] Last Admin: 06/29/21 23:06 Dose: 10 mg Documented by: Amlodipine Besylate (Amlodipine 10 Mg Tablet) 10 mg PO DAILY [facility] Last Admin: 07/02/21 08:45 Dose: 10 mg Documented by: Carvedilol (Carvedilol 12.5 Mg Tablet) 12.5 mg PO BID [facility] Last Admin: 07/02/21 08:45 Dose: 12.5 mg Documented by: Clonidine HCl (Clonidine 0.1 Mg Tablet) 0.1 mg PO BID [facility] Last Admin: 07/02/21 08:45 Dose: 0.1 mg Documented by: Dextrose (Dextrose 50% Syringe 50 Ml) 50 ml IVP PRN PRN; Protocol PRN Reason: hypoglycemia protocol Dextrose (Dextrose 50% Sdv 50 Ml) 25 ml IVP ONCE PRN; Protocol PRN Reason: hypoglycemia protocol Last Admin: 06/27/21 17:26 Dose: 25 ml Documented by: Docusate Sodium (Docusate Sodium 100 Mg Capsule) 100 mg PO BID [facility] Last Admin: 07/02/21 07:37 Dose: Not Given Documented by: Glucagon (Glucagon 1 Mg/Ml Inj 1 Ml) 1 mg IM ONCE PRN; Protocol PRN Reason: Adult Acute Hypoglycemia Prot. Heparin Sodium (Porcine) (Heparin 5,000 Unit/Ml Inj 1 Ml) 5,000 unit SUBCUT Q12H [facility] Last Admin: 06/30/21 18:02 Dose: 5,000 unit Documented by: Dextrose (D5w) 500 mls @ 100 mls/hr IV ONCE PRN; Protocol PRN Reason: Adult Acute Hypoglycemia Prot Norepinephrine Bitartrate 4 mg (/ Dextrose) 254 mls @ 0 mls/hr IV .Q0M [facility]; Protocol Propofol (Diprivan) 1,000 mg in 100 mls @ 0 mls/hr IV .Q0M [facility]; Protocol Albumin Human (Albumin) 12.5 gm in 50 mls @ 60 mls/hr IV PRN PRN PRN Reason: Hypotension and/or symptomatic Nicardipine HCl 25 mg/ Sodium (Chloride) 250 mls @ 0 mls/hr IV .Q0M [facility]; Protocol Last Titration: 06/30/21 21:38 Dose: 0 mg/hr, 0 mls/hr Documented by: Vancomycin HCl 1,000 mg/ (Sodium Chloride) 250 mls @ 250 mls/hr IV MoWeFr [facility] Last Admin: 06/30/21 15:24 Dose: 250 mls/hr Documented by: Insulin Human Lispro (Insulin Lispro 100 Unit/1 Ml) 0 unit SUBCUT BEDTIME [facility]; Protocol Last Admin: 07/01/21 22:01 Dose: Not Given Documented by: Insulin Human Lispro (Insulin Lispro 100 Unit/1 Ml) 0 unit SUBCUT TIDWM [facility]; Protocol Last Admin: 07/02/21 07:35 Dose: Not Given Documented by: Lactulose (Lactulose Oral Liq 20 Gm/30 Ml Udc) 20 gm PO DAILY PRN PRN Reason: Constipation Minoxidil (Minoxidil 10 Mg Tablet) 5 mg PO DAILY [facility] Last Admin: 07/01/21 09:42 Dose: 5 mg Documented by: Multivitamins (K-Krcixym-Uegrxck C Tablet) 1 each PO DAILY [facility] Last Admin: 07/02/21 07:37 Dose: Not Given Documented by: Nifedipine (Nifedipine Er (24 Hr) 30 Mg Tablet) 90 mg PO DAILY [facility] Last Admin: 07/02/21 08:45 Dose: 90 mg Documented by: Ondansetron HCl (Ondansetron 2 Mg/Ml Sdv 2 Ml) 4 mg IVP Q6H PRN PRN Reason: NAUSEA AND VOMITING Pantoprazole Sodium (Pantoprazole 40 Mg Sdv) 40 mg IVP DAILY [facility] Last Admin: 07/01/21 09:43 Dose: 40 mg Documented by: Polyethylene Glycol (Polyethylene Glycol 3350 Pkt 17 Gm) 17 gm PO BID [facility] Last Admin: 07/02/21 07:36 Dose: Not Given Documented by: Sevelamer Carbonate (Sevelamer 800 Mg Tablet) 1,600 mg PO TID [facility] Last Admin: 07/02/21 07:36 Dose: Not Given Documented by: [facility] Anesthesia Medical History Alport syndrome Anemia in chronic kidney disease Dialysis AV fistula malfunction left forearm Diastolic heart failure with LVH 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 Suggestive of endocarditis. Features of severe mitral regurgitation with a regurgitant fraction of 69.6% Moderately severe tricuspid regurgitation Normal LV size ejection fraction. Biatrial enlargement, right worse than the left. No pericardial effusion. Possible small patent foramen ovale. HTN (hypertension) Jugular vein occlusion, right MRSA bacteremia (05/2021) Severe mitral regurgitation Tricuspid regurgitation Surgical History Fistula Left forearm, non-functioning 05/2021 History of incision and drainage (06/11/21) right forearm abscess S/P hemodialysis catheter insertion -Tunneled right IJ HD catheter placed in [place], [place] removed 06/10/21 -Right femoral HD line placed 06/13/21 -Left IJ tunneled catheter placed 06/18/21 with same day removal of right femoral temporary HD catheter - Left IJ tunneled catheter exchanged to temporary catheter 06/27/2021 Family History Other Alport syndrome ESRD (end stage renal disease) Social History Smoking and tobacco status: never smoked Alcohol intake: never Other details last substance use: Marijuana. Denies any other. Denies IVDU. Lives independently: Yes Household members: spouse Marital status: Current occupational status: unemployed Data Anesthesia : 07/02/21 05:17 07/02/21 05:17 Short CBC 07/01/21 07/02/21 Range/Units 03:31 05:17 WBC 8.4 7.2 (4.0-10.0) 10^3/uL Hgb 8.1 L 8.3 L (11.7-16.6) g/dL Hct 26.3 L 26.5 L (42.0-52.0) % MCV 90.4 91.1 (80-94) fl Plt Count 184 218 (130-400) 10^3/cmm Neut % (Auto) 71.0 63.7 % Neut # (Auto) 5.96 4.59 (1.8-7.7) 10^3/uL BMP 07/01/21 07/02/21 03:31 05:17 Sodium 142 141 Potassium 5.1 4.3 Chloride 102 99 Carbon Dioxide 24 29 BUN 37 H 30 H Creatinine 8.5 H* 6.4 H* Glucose 105 98 Calcium 8.6 9.3 Liver Function 07/01/21 07/02/21 Range/Units 03:31 05:17 Total Bilirubin 0.5 0.3 (0.15-1.2) mg/dL AST 12 11 (0-40) U/L ALT 6 6 (0-41) U/L Alkaline Phosphatase 94 97 (40-130) IU/L Albumin 3.8 3.8 (3.5-5.2) g/dL Cardiac Studies: Echocardiogram 06/27/21 Transesophageal Echocardiogram 06/27/21
[2021-07-02] MEDS: sodium chloride 0.9% 1,000 ML 30 ML IV (10:51)
--- NOTE | 2021-07-02 11:24 | SUR.OPER ---
1123 temporary dialysis cath removed by dr kemp, catheter intact. disposed of in [employer]
[2021-07-02] MEDS: lidocaine 1% INJ 20 mL INJECTION (11:25)
[2021-07-02] MEDS: heparin, porcine 1,000 unit/mL INJ 10 mL 10000 UNIT INJECTION (11:33)
[2021-07-02 12:10] LABS: Glucose Point of Care 170 mg/dL (70-110)
--- NOTE | 2021-07-02 12:19 | PC.NURSE ---
Bleeding from left upper chest at site of dialysis catheter placement, held pressure for 5 minutes, soaked bandage and draining onto bed. Informed Dr. Worthington and placed five pound sand bag on site as ordered by Dr. Worthington.
--- NOTE | 2021-07-02 13:05 | PM.DCS ---
Discharge Providers Date of Admission: 06/27/21 11:35 Date of Discharge: July 02, 2021 Attending Provider at Admission: Lidia Lema MD Attending Provider at Discharge: Fredy Gutierrez MD Primary Care Provider: Kumar Carvajal MD Diagnoses at Discharge Discharge Diagnosis (1) ESRD (end stage renal disease) on dialysis: Status: Chronic Reason for Visit Reason for Visit: AMS ABD PAIN Hospital Course Hospital Course 35-year-old male who presented to the emergency room with altered mental status and hypotension while getting dialysis. In the CT scan he vomited and his mentation worsened, he was intubated on 06/27. There was concern for septic shock because of his recent MRSA endocarditis, permanent dialysis catheter was removed by Dr. Worthington and temporary one was placed at the same site. Transesophageal echo was done same day which did not reveal valvular abscess however vegetations were noted. No signs of PE. He was extubated next day 06/28 successfully without any complications. Uses 4 L of oxygen at night. Dr. Gonzalez and Dr. Almeida were consulted. Please read their notes for further details. In short Dr. Almeida did recommend mitral valve replacement and possibly mitral valve clip in the interim however he is high risk:-Not a suitable candidate for bioprosthetic valve and for mechanical valves he will need Coumadin and with underlying end-stage renal disease he is at high risk of bleeding. For second opinion Dr. Gonzalez is making arrangements to have him go to [facility]. Patient is reluctant to be transferred during this hospitalization. During his hospitalization he did not show any signs of sepsis or bacteremia, permacath was replaced over the guidewire at the same site on 07/[address] Worthington Plan was to discharge him on 07/02 after permacath however noticed oozing of blood at the catheter site and Dr. Worthington recommended monitoring overnight and holding his discharge for tonight. However patient does not want to stay as he already made plans to go home. He will leave AMA. I have sent my scripts and referrals already to make sure there is no loss to follow-up. Physical Exam Narrative: Patient laying comfortably in his bed Saturating well on room air Multiple skin tattoos Bloated abdomen Ascites Hepatomegaly No orthopnea PND Low extremities no edema Awake and alert Nonfocal neuro exam No audible stridor or wheezing Urinary Catheter Management: Blue: Cath Placed During This Visit: yes, but has since been removed by the nurse Urethral Indwelling: Yes Reason for Continuing Indwelling Catheter: Decision to DC Catheter Urinary Catheter Date of Insertion: 06/27/21 Urinary Catheter Time of Insertion: 10:20 Date Urinary Catheter Removed: 06/30/21 Time Urinary Catheter Discontinued: 16:00 Discharge Data Studies Completed and Pending Completed Studies During Hospitalization Category Date Time Status CT head wo con* [id number] Stat Cat Scan 06/27/21 09:15 Completed CTA chest [CT angio chest 06075] Stat Cat Scan 06/27/21 13:58 Completed CXRP [XR chest 1V portable 77044] Routine Exams 06/27/21 12:45 Completed XR KUB portable [id number] Routine Exams 06/28/21 22:11 Completed XR chest 1V portable [id number] Stat Exams 06/27/21 06:58 Completed XR chest 1V portable [id number] Stat Exams 06/27/21 10:56 Completed XR shoulder LT 1V [id number] Routine Exams 06/27/21 12:46 Completed CV. echo complete* [id number] Stat Ultrasound 06/27/21 11:27 Completed CV. echo transesophageal [id number] Routine Ultrasound 06/27/21 Completed Pending at discharge Category Date Time Status Blood Culture Stat Lab 06/27/21 12:15 Results Comprehensive Metabolic Panel AM LABS Lab 07/03/21 04:00 Ordered Comprehensive Metabolic Panel AM LABS Lab 07/04/21 04:00 Ordered Magnesium AM LABS Lab 07/03/21 04:00 Ordered Magnesium AM LABS Lab 07/04/21 04:00 Ordered Phosphorus AM LABS Lab 07/03/21 04:00 Ordered Phosphorus AM LABS Lab 07/04/21 04:00 Ordered Vancomycin Trough Routine Lab 07/02/21 11:14 Ordered Radiology Impressions Head CT 06/27/21 09:15 IMPRESSION: 1. Nondiagnostic evaluation of the brain. 2. No large areas of hemorrhage and no midline shift. Chest X-Ray 06/27/21 12:45 IMPRESSION: There is been some retraction of the endotracheal tube as noted above. There is also been some retraction of the right jugular dialysis catheter. A second central line is been added through the left subclavian vein. This catheter could be advanced 5 to 6 cm for more optimal positioning. Resolution of previous lung opacities. Configuration of the heart suggests pericardial effusion. Patient is undergoing echocardiography today which should resolve this issue. Shoulder X-Ray 06/27/21 12:46 IMPRESSION: 1. LEFT central line enters through the LEFT jugular vein. 2. The LEFT central line is overlapping and partially obscured by the dialysis catheter. Chest CTA 06/27/21 13:58 IMPRESSION: 1. Without ECG gating there is significant motion artifact obscuring the aortic root and the ascending aorta. Abscess cannot be excluded without ECG gating. ECG gating is not available at this institution at this time. For further evaluation of the aortic root BLATAZAR should be considered. 2. Diffuse soft tissue edema and anasarca. 3. Extensive hepatomegaly with congestion and tricuspid regurgitation into hepatic veins. 4. Dilated RIGHT heart structures. Marked dilatation of the RIGHT atrium. 5. There is also moderate dilatation of the LEFT heart. 6. Near complete bilateral lower lobar collapse. 7. Abdominal ascites. Similar to the prior study from 06/08/2021. KUB X-Ray 06/28/21 22:11 IMPRESSION: 1. Nonspecific nonobstructive bowel gas pattern. 2. Appearance of large diffuse ascites. C-Arm Fluoroscopy 07/02/21 10:12 IMPRESSION: Images obtained for intraoperative purposes. Laboratory Results WBC 7.2 10^3/uL (4.0-10.0) 07/02/21 05:17 RBC 2.91 10^6/uL (4.1-5.3) L 07/02/21 05:17 Hgb 8.3 g/dL (11.7-16.6) L 07/02/21 05:17 Hct 26.5 % (42.0-52.0) L 07/02/21 05:17 MCV 91.1 fl (80-94) 07/02/21 05:17 MCH 28.5 pg (28.0-34.0) 07/02/21 05:17 MCHC 31.3 g/dL (30.0-36.0) 07/02/21 05:17 RDW 20.4 % (12.1-15.1) H 07/02/21 05:17 Plt Count 218 10^3/cmm (130-400) 07/02/21 05:17 MPV 10.1 fL (7.4-10.4) 07/02/21 05:17 Neut % (Auto) 63.7 % 07/02/21 05:17 Lymph % (Auto) 14.4 % 07/02/21 05:17 [place] % (Auto) 10.7 % 07/02/21 05:17 Eos % (Auto) 9.0 % 07/02/21 05:17 Baso % (Auto) 1.8 % 07/02/21 05:17 Neut # (Auto) 4.59 10^3/uL (1.8-7.7) 07/02/21 05:17 Lymph # (Auto) 1.0 10^3/uL (0.8-4.8) 07/02/21 05:17 [place] # (Auto) 0.8 10^3/uL (0.2-0.9) 07/02/21 05:17 Eos # (Auto) 0.7 10^3/uL (0.0-0.8) 07/02/21 05:17 Baso # (Auto) 0.1 10^3/uL (0.0-0.1) 07/02/21 05:17 Nucleated RBC % (auto) 0 % 07/02/21 05:17 Nucleated RBCs # 0.0 /100WBC 07/02/21 05:17 PT 17.30 SECONDS (12.1-14.9) H 06/27/21 12:15 INR 1.38 (0.8-1.2) H 06/27/21 12:15 APTT 32.3 SECONDS (23.9-36.7) 06/27/21 12:15 Specimen Type Arterial 06/28/21 05:15 Sample Site Radial, right 06/28/21 05:15 ABG pH 7.50 (7.35-7.45) H 06/28/21 05:15 ABG pCO2 40.0 mmHg (35-45) 06/28/21 05:15 ABG pO2 60.3 mmHg (80.0-100.0) L 06/28/21 05:15 ABG HCO3 30.9 mmol/L (22-26) H 06/28/21 05:15 ABG O2 Saturation 93.1 06/27/21 11:55 ABG Base Excess 7.0 mmol/L (-2.0-2.0) H 06/28/21 05:15 Juan Test Pos 06/28/21 05:15 A-a O2 Gradient 56.3 mmHg (5-10) H 06/27/21 11:55 Hematocrit 20.4 % (42-52) L 06/28/21 05:15 Hgb O2 Saturation 90.0 % (95-100) L 06/27/21 11:55 Carboxyhemoglobin 2.3 %THgb (0.4-20.1) 06/27/21 11:55 Methemoglobin 1.1 % (0.4-1.5) 06/27/21 11:55 Total Hemoglobin 7.2 g/dL (14-18) L 06/27/21 11:55 Sodium 142.0 mmol/L (131-143) 06/27/21 11:55 Potassium 6.2 mmol/L (3.5-5.0) H 06/27/21 11:55 Glucose 105.0 mg/dL (70-115) 06/27/21 11:55 Ionized Calcium 1.2 mmol/L (1.1-1.4) 06/27/21 11:55 O2 Delivery Device Vent 06/28/21 05:15 FiO2 30.0 % 06/28/21 05:15 Tidal Volume 0.50 06/28/21 05:15 PEEP 8.0 cmH20 06/28/21 05:15 Cage Unloader ID Govind 06/28/21 05:15 Sodium 141 mmol/L (136-145) 07/02/21 05:17 Potassium 4.3 mmol/L (3.5-5.1) 07/02/21 05:17 Chloride 99 mmol/L (98-107) 07/02/21 05:17 Carbon Dioxide 29 mmol/L (22-29) 07/02/21 05:17 Anion Gap 17.3 (5-19) 07/02/21 05:17 BUN 30 mg/dL (6-20) H 07/02/21 05:17 Creatinine 6.4 mg/dL (0.7-1.2) H* 07/02/21 05:17 GFR Calculation 10.0 mL/min (90-130) L 07/02/21 05:17 Glucose 98 mg/dL (65-115) 07/02/21 05:17 POC Glucose 170 mg/dL (70-110) H 07/02/21 06:47 Calculated Osmolality 298 mOsm/kg (285-295) H 07/02/21 05:17 Lactic Acid 3.8 mmol/L (0.5-2.2) H 06/27/21 07:11 Lactate 1.6 mmol/L (0.5-2.2) 06/27/21 12:15 Uric Acid 5.5 mg/dL (3.4-7.0) 06/27/21 12:15 Calcium 9.3 mg/dL (8.5-10.5) 07/02/21 05:17 Phosphorus 4.2 mg/dL (2.5-4.5) 07/02/21 05:17 Magnesium 2.0 mg/dL (1.7-2.3) 07/02/21 05:17 Iron 46 ug/dL (59-158) L 06/28/21 04:26 TIBC 204 mcg/dl 06/28/21 04:26 % Saturation 22.5 % (20-50) 06/28/21 04:26 Unsat Iron Binding 158 ug/dL (112-347) 06/28/21 04:26 Total Bilirubin 0.3 mg/dL (0.15-1.2) 07/02/21 05:17 AST 11 U/L (0-40) 07/02/21 05:17 ALT 6 U/L (0-41) 07/02/21 05:17 Alkaline Phosphatase 97 IU/L (40-130) 07/02/21 05:17 Creatine Kinase 109 U/L (39-308) 06/27/21 07:11 Troponin T Baseline 110 ng/L (0-15) H* 06/27/21 07:11 Troponin T 120 Minute 102.6 ng/L (0-15) H 06/27/21 10:23 Delta Troponin T -7.4 ABS# (0-10) L 06/27/21 10:23 Troponin T Hi Sens 6Hr 114.7 ng/L (0-15) H 06/27/21 14:25 Troponin T Hi Sens 6Hr Delta 4.7 ng/L (0-12) 06/27/21 14:25 C-Reactive Protein 6.7 mg/L (0.0-4.9) H 06/27/21 12:15 Total Protein 6.9 g/dL (6.6-8.7) 07/02/21 05:17 Albumin 3.8 g/dL (3.5-5.2) 07/02/21 05:17 Globulin 3.1 g/dL (1.3-4.6) 07/02/21 05:17 Lipase 44 U/L (13-60) 06/27/21 07:11 25-OH Vitamin D Total 39 ng/mL (30-100) 06/30/21 03:34 Urine Color Yellow (Yellow) 06/27/21 10:17 Urine Appearance Clear (CLEAR) 06/27/21 10:17 Urine pH 9 (5-7) H 06/27/21 10:17 Ur Specific [place] 1.010 (1.005-1.030) 06/27/21 10:17 Urine Protein Trace (Negative) 06/27/21 10:17 Urine Glucose (UA) 1+ (Normal) H 06/27/21 10:17 Urine Ketones Negative (Negative) 06/27/21 10:17 Urine Blood Neg (Negative) 06/27/21 10:17 Urine Nitrate Negative (Negative) 06/27/21 10:17 Urine Bilirubin Neg (Negative) 06/27/21 10:17 Prot Sulfosalicylic Acd Negative (Negative) 06/27/21 10:17 Urine Urobilinogen Norm mg/dL (Negative) 06/27/21 10:17 Ur Leukocyte Esterase Negative (Negative) 06/27/21 10:17 Urine RBC None /hpf (0-2) 06/27/21 10:17 Urine WBC None /hpf (0-5) 06/27/21 10:17 Ur Squamous Epith Cells 0-4 /hpf (0-5) H 06/27/21 10:17 Amorphous Sediment Not Reportable 06/27/21 10:17 Urine Bacteria Trace /hpf (NONE) 06/27/21 10:17 Random Vancomycin 27.2 ug/mL (20.0-40.0) 07/01/21 03:31 Serum Ketones Negative (Negative) 06/27/21 07:11 Hep Bs Antigen Non-reactive (Nonreactive) 06/29/21 03:59 Hep Bs Antibody 141.3 (11.5-1000) 06/29/21 03:59 Hepatitis C Antibody Non-reactive (Nonreactive) 06/29/21 03:59 Blood Type A Positive 06/27/21 12:15 Rho(D) Type Positive 06/27/21 12:15 Antibody Screen Negative 06/27/21 12:15 Crossmatch See Detail 06/27/21 12:15 Vitals Last Vital Signs Temp 99.3 F 07/02/21 11:43 Pulse 74 07/02/21 12:55 Resp 12 07/02/21 12:55 BP 131/89 07/02/21 12:55 Pulse Ox 91 07/02/21 12:55 Discharge Plan Discharge Patient Disposition: Home Condition: Stable Prescriptions: New hydralazine 25 mg tablet 25 mg PO TID Qty: 90 4RF Continued lactulose 10 gram/15 mL Solution 30 ml PO DAILY PRN (Reason: Constipation) 0RF pantoprazole 40 mg tablet,delayed release (DR/EC) 40 mg PO DAILY 0RF minoxidil 10 mg tablet 5 mg PO DAILY 0RF carvedilol 25 mg Tablet 25 mg PO BID 0RF nifedipine 90 mg Tablet Extended Release 90 mg PO DAILY 0RF clonidine HCl 0.1 mg Tablet 0.1 mg PO TID 30 Days Qty: 90 0RF sevelamer carbonate 800 mg Tablet 1,600 mg PO TID 30 Days Qty: 180 0RF ferrous gluconate 324 mg (37.5 mg iron) Tablet 324 mg PO BIDWM 30 Days Qty: 60 0RF vancomycin 1,000 mg recon soln See Rx Instructions .ROUTE .COMPLEX Qty: 10 0RF Rx Instructions: 1000mg after dialysis, on dialysis days, for 6 total weeks Discontinued hydralazine 50 mg Tablet 50 mg PO TID 30 Days Qty: 90 0RF Referrals: Kumar Carvajal MD [Primary Care Provider] - (PLEASE CALL FOR APPOINTMENT WITH PCP FOR HOSPITAL FOLLOW UP) Mauro Gonzalez M.D [Physician] - 08/01/21 9:00 am Vicenta Johnston FNP [Nurse Practitioner] - 07/08/21 3:15 pm Discharge Diet: Cardiac Discharge Activity: Increase activity as tolerated Patient Instructions: Hydralazine (By mouth), Endocarditis (GEN), Dialysis Diet (GEN), Perma-cath Placement (GEN), Hemodialysis (GEN), Opioid Safety Discharge Attestations Time Spent in Discharge Care*: less than 30 min Quality Metrics Clinical Quality Measures [ No reported AMI, CVA or VTE this stay] Coding Level of Care Code Acute Chg FW DC note Diagnoses ESRD (end stage renal disease) on dialysis N18.6; Z99.2
--- NOTE | 2021-07-02 15:34 | P.OP_ITS ---
Operative Report Date of procedure: July 02, 2021 Pre-op diagnosis: Chronic renal failure Negative blood cultures, patient requiring long-term hemodialysis access Post-op diagnosis: Chronic renal failure Negative blood cultures, patient requiring long-term Procedure done: 1. Exchange of temporary dialysis catheter to 16 Uz[place] 31 cm long AshSplit tunneled hemodialysis catheter in the left internal jugular vein 2. Fluoroscopic guidance and interpretation for placement of catheter Pathology: none sent Surgeon: Luis Worthington Anesthesia: General Condition: stable Disposition: PACU Procedure: The patient was taken to the operating room and placed under general anesthesia. Patient is on IV antibiotics. She was placed in a Trendelenburg position.? The left chest was prepped and draped in a sterile manner and catheter .? The site for the tunnel catheter was marked on the skin under fluoroscopy.? The existing temporary catheter was cut with scissors and guidewire was passed through one of the channels in the distal portion of the divided catheter and the catheter was removed.? Serial dilators were passed over the guidewire under fluoroscopy.? A new 31 cm long 16 Uz[place] AshSplit catheter was passed through the subcutaneous tissue on the right chest and exited through the incision on the right neck.? Dilator sheath was passed over the guidewire and the inner sheath and guidewire was removed and the distal end of the catheter was introduced into the internal jugular vein as the peel-away sheath was removed.? Fluoroscopy confirmed good position of the tip of the catheter.? The skin incision in the neck was closed using 4-0 Monocryl and surgical glue.? The catheter sutured to the skin using 3- 0 Prolene.? Sterile dressings were applied.
--- NOTE | 2021-07-02 16:23 | ANE.PACU2 ---
Inpatient post-anesthesia follow up: Airway intact: Yes Vital signs: Temperature 99.6 F Pulse Rate 89 Respiratory Rate 17 Blood Pressure 131/94 Pulse Oximetry 91 Oxygen Delivery Me thod Room Air Oxygen Flow Rate 2 Fraction of Inspir ed Oxygen 30 Hydration adequate: Yes Nausea and vomiting: No Pain level: 1 Mental status: Baseline
--- NOTE | 2021-07-02 16:30 | PC.NURSE ---
Central line management-Left internal juglar vein patent/intact/clean/dry/asymptomatic transparent dressing. Significant bleeding from left central dialysis line soaking bandage, per Dr. Worthington's orders redressed with chloraprep, sterile 4x4 and transparent dressing, applied five pound sand bag for over an hour. Dr. Worthington notified the bleeding continued soaking another bandage, Dr. Worthington applied Surgicel, sterile 4x4 and transparent dressing, ordered pt transfer to floor with continuing sandbag in place. Gave report to FLOYD Bey [id number] notified Maida and pt of Dr. Worthington's sandbag order, Maida and pt voiced understanding.
[2021-07-02 17:21] LABS: Vancomycin Trough 18.3 ug/mL (10-15)
--- NOTE | 2021-07-02 18:14 | PC.NURSE ---
Pt's new HD cath site was slightly oozing after returned to room after OR placement. Reinforced drsg and continued sand bag pressure. Pt stated that he was leaving tonite no matter what. Notified surgeon about the oozing site. Dr Worthington recommended that pt stay tonite until site stopped bleeding. Notified Dr Gutierrez about what surgery recommended. Pt adamant that he is leaving tonite and notified pt that it would be considered AMA. Pt's central line removed and pt left ama with his brother
== END 2021-07-02 18:30 | disposition left against medical advice (07) | DRG 228 ==
LOC: ER 08:50 → ICU 14:00 → MEDSURG 07-01 19:34
PROVIDERS: Internal Medicine Nephrology; Surgery; Admitting Provider Hospitalist; Emergency Provider Family Medicine; PCP Emergency Medicine; Visit Provider Internal Medicine
PROC: 02PA03Z Removal of Infusion Device from Heart, Open Approach (ICD-10-PCS; principal; 2021-07-02 11:00)
DX: I38 Endocarditis, valve unspecified (principal); N18.6 End stage renal disease; I50.33 Acute on chronic diastolic (congestive) heart failure; J96.01 Acute respiratory failure with hypoxia; T80.219A Unspecified infection due to central venous catheter, initial encounter; I13.2 Hypertensive heart and chronic kidney disease with heart failure and with stage 5 chronic kidney disease, or end stage renal disease; Q87.81 Alport syndrome; I16.1 Hypertensive emergency; T82.42XA Displacement of vascular dialysis catheter, initial encounter; Y82.8 Other medical devices associated with adverse incidents; Z99.2 Dependence on renal dialysis; B95.62 Methicillin resistant Staphylococcus aureus infection as the cause of diseases classified elsewhere; D63.1 Anemia in chronic kidney disease; Z86.14 Personal history of Methicillin resistant Staphylococcus aureus infection; Z53.21 Procedure and treatment not carried out due to patient leaving prior to being seen by health care provider; E87.5 Hyperkalemia; I95.9 Hypotension, unspecified
CPT/HCPCS: 31500; 36415; 36416; 36430; 36556; 36600; 70450; 71045; 71275; 73020; 74018; 76000; 77001; 80048; 80051; 80053; 80202; 81001; 82009; 82306; 82330; 82550; 82803; 82805; 82962; 83540; 83550; 83605; 83690; 83735; 84100; 84484; 84550; 85025; 85610; 85730; 86140; 86706; 86803; 86850; 86900; 86902; 86920; 87040; 87070; 87075; 87205; 87340; 90935; 92610; 93005; 93306; 93312; 93320; 93325; 94002; 94640; 94664; 94799; 96365; 96366; 96367; 96372; 96375; 99291; 99292; C1750; C9113; J0330; J0461; J0610; J1170; J1642; J1644; J1815; J2060; J2250; J2543; J2704; J2916; J3010; J3370; J3490; J7030; J7050; J7799; P9016; Q3014; Q9967

== ENCOUNTER → 2021-06-27 | Day surgery (SDC) | payer MEDICAID, SELFPAY | PROVIDERS: PCP Internal Medicine Cardiovascular Disease; Visit Provider Surgery | DX: Z01.818 Encounter for other preprocedural examination (principal) | CPT/HCPCS: J2704; J3490 ==

== ENCOUNTER 2021-07-30 11:18 | Day surgery (SDC) | payer MEDICAID, SELFPAY ==
[2021-07-29 09:45] VITALS: BMI 27.0
--- NOTE | 2021-07-30 11:31 | US_ITS ---
WS: [id number] ULTRASOUND-GUIDED PARACENTESIS CLINICAL INFORMATION: abdominal ascites COMPARISON: None. Procedure Informed consent: The risks, benefits, and alternatives of the procedure were discussed with the fletcher ent. Verbal and written consent was obtained. Timeout: A timeout was performed to confirm the correct patient, procedure, and site. Preparation: A suitable skin site was identified. The patient was prepped and draped in usual sterile fashion. Lidocaine 1% was used for local anesthesia. Catheter: 4 Norwegian One-step Yueh catheter. Side: LEFT Lower quadrant. Fluid Volume: 6250 ml Color: Clear yellow DISPOSITION: Discarded safely. Complications: None. Patient disposition: Discharged from the department in stable condition. US/US paracentesis abd w [id number] IMPRESSION: Uncomplicated ultrasound-guided paracentesis. Removal of 6250 cc
[2021-07-30 11:34] VITALS: BP 178/116; PULSE 93; RESP 18; TEMP 36.9; O2SAT 88
[2021-07-30 11:38] VITALS: O2SAT 90
[2021-07-30 11:53] VITALS: O2SAT 93
[2021-07-30 12:59] VITALS: BP 166/117; PULSE 90; RESP 16; O2SAT 92
== END 2021-07-30 13:00 | disposition home or self-care (01) ==
PROVIDERS: Radiology Neuroradiology; PCP Internal Medicine Cardiovascular Disease; Visit Provider Family Medicine
PROC: (CPT 49082; principal; 2021-07-30 12:00)
DX: R18.8 Other ascites (principal)
CPT/HCPCS: 49083

== ENCOUNTER 2021-08-11 06:37 | Emergency (ER) | payer MEDICAID, SELFPAY ==
[2021-08-11] VITALS (7 sets, daily range): BP systolic 112–164; BP diastolic 70–102; PULSE 86–108; RESP 18–20; TEMP 36.8; O2SAT 88–100
--- NOTE | 2021-08-11 07:02 | W.ED.ABDPA2 ---
HPI - Abdominal Pain General: Chief Complaint: Abdominal Pain Stated Complaint: ABD PAIN Time Seen by Provider: 08/11/21 06:46 Source: patient Mode of arrival: EMS Limitations: no limitations History of Present Illness: 36-year-old male with a very complicated history. He has Buchanan syndrome. He has end-stage renal disease SBE due to IV drug use he needs to have a mitral valve replacement scheduled for August 29 he is currently on dialysis Wednesday and has not missed any recent doses. He presents today complaining of abdominal pain and distention have progressively worsened over the weekend. Patient was admitted last month with concern for recurrent for. Her long complicated hospital course those notes were reviewed. He today was at dialysis and after about 1 hour into his run began to have severe abdominal pain dialysis was ceased and he was transferred here for evaluation. He has been nauseous he has had some dry heaving but he denies any hematemesis or coffee-ground emesis. He is not had any hematochezia or melena. He denies dysuria urgency or frequency. He does still make urine. He had a bowel movement just prior to going to dialysis this morning which she reports was normal. He refers to the abdominal pain is diffuse. He denies any new foods missing any medications or any other change in his regimen recently. MD elicited complaint: abdominal pain Pertinent past history: other (Alport's disease, end-stage renal disease, SBE) Pain Consistency: constant Severity: severe Quality: cramping Radiation: none Migration to: no migration Exacerbating factors: nothing Relieving factors: nothing Associated Symptoms: Reports anorexia, bloating, GI cramping, nausea, poor appetite and vomiting; Denies belching, change in bowel habits, change in stool character, chills, coffee ground emesis, constipation, diarrhea, dyspepsia, dysuria, excessive flatus, fever(s), heartburn, hematochezia, hematuria, hematemesis, fecal incontinence, loose stools, melena and syncope Review of Systems Const: Denies: fever(s) or chills ENMT: Denies: throat pain, ear or mastoid pain, nasal discharge or nasal congestion Card: Denies: syncope Resp: Denies: dyspnea, productive cough or non-productive cough GI: Reports: abdominal pain, nausea, vomiting, bloating and GI cramping; Denies: hematemesis, coffee ground emesis, heartburn, diarrhea, constipation, belching, excessive flatus, fecal incontinence, change in bowel habits, change in stool character, hematochezia or melena : Denies: flank pain, difficulty urinating, dysuria, urinary frequency, urinary urgency or hematuria Skin/Breast: Denies: rash or pruritus PFSH ED PFSH: Medical History Alport syndrome Anemia in chronic kidney disease Dialysis AV fistula malfunction left forearm Diastolic heart failure with LVH 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 Suggestive of endocarditis. Features of severe mitral regurgitation with a regurgitant fraction of 69.6% Moderately severe tricuspid regurgitation Normal LV size ejection fraction. Biatrial enlargement, right worse than the left. No pericardial effusion. Possible small patent foramen ovale. HTN (hypertension) Jugular vein occlusion, right MRSA bacteremia (05/2021) Severe mitral regurgitation Tricuspid regurgitation Surgical History Fistula Left forearm, non-functioning 05/2021 History of incision and drainage (06/11/21) right forearm abscess S/P hemodialysis catheter insertion -Tunneled right IJ HD catheter placed in [place], [place] removed 06/10/21 -Right femoral HD line placed 06/13/21 -Left IJ tunneled catheter placed 06/18/21 with same day removal of right femoral temporary HD catheter - Left IJ tunneled catheter exchanged to temporary catheter 06/27/2021 Family History Other Alport syndrome ESRD (end stage renal disease) Social History Smoking and tobacco status: current some day smoker Alcohol intake: never Other details last substance use: Marijuana. Denies any other. Denies IVDU. Lives independently: Yes Household members: spouse Marital status: Current occupational status: unemployed Physical Exam Const: GENERAL APPEARANCE: cooperative and comfortable ORIENTATION/CONSCIOUSNESS: Yes awake, Yes oriented to person, Yes oriented to place and Yes oriented to time HENMT: COMMON NORMALS: normocephalic, atraumatic and hearing grossly normal bilaterally HEAD & SCALP: normocephalic and atraumatic Neck/C-Spine: COMMON NORMALS: no JVD Resp: COMMON NORMALS: normal respiratory effort, No retractions, No use of accessory muscles and clear to auscultation bilaterally AUSCULTATION: clear to auscultation bilaterally Cardio: COMMON NORMALS: no JVD, regular rate, regular rhythm and No murmurs present (Cardio) RATE: regular rate RHYTHM: regular rhythm GI: COMMON NORMALS: No hepatosplenomegaly present INSPECTION: Yes abdominal distension AUSCULTATION: Yes Hypoactive bowel sounds present PALPATION: Yes Tenderness to palpation present (GI) (Diffuse), No Guarding due to palpation present (GI) and Yes No hepatosplenomegaly present PERCUSSION: tympanic to percussion Extremity: COMMON NORMALS: normal to inspection, capillary refill normal, no clubbing, cyanosis or edema, no calf tenderness and no pedal edema Neuro: SENSORIUM/ORIENTATION: Yes oriented to person, Yes oriented to place and Yes oriented to time Skin: COMMON NORMALS: no rashes or lesions noted GENERAL SKIN EXAM: no rashes or lesions noted Course Vital Signs: Vital signs: Vital Signs Temperature 98.3 F 08/11/21 06:42 Pulse Rate 94 08/11/21 11:33 Respiratory Rate 18 08/11/21 11:33 Blood Pressure 117/89 08/11/21 11:33 Pulse Oximetry 92 08/11/21 11:33 MDM - Abdominal Pain Medical Decision Making Patient much improved after paracentesis. Will discharge home with the plan that the patient will return directly to dialysis to complete his dialysis run. Discussed with the patient has no questions and he understands plan. Medical Records I reviewed the patient's medical records. Lab Data I reviewed the patient's lab results. : 08/11/21 06:55 08/11/21 06:55 Labs/Radiology: Radiology Impressions Abdomen/Pelvis CT 08/11/21 07:03 IMPRESSION: 1. Severe ascites with anasarca and mesenteric edema. 2. Marked hepatomegaly with changes consistent with passive hepatic congestion. This can be seen with Budd-Chiari syndrome, hepatic cirrhosis or viral hepatitis. 3. There are small para-aortic lymph nodes which may be reactive. 4. The area of increased density the pelvis only a small area of blood or small lymph node. 5. Moderate cardiomegaly. Paracentesis Ultrasound 08/11/21 08:59 IMPRESSION: Uncomplicated ultrasound-guided paracentesis. Removal of 6000 cc Laboratory Results WBC 8.7 10^3/uL (4.0-10.0) 08/11/21 06:55 RBC 3.59 10^6/uL (4.1-5.3) L 08/11/21 06:55 Hgb 10.2 g/dL (11.7-16.6) L 08/11/21 06:55 Hct 32.2 % (42.0-52.0) L 08/11/21 06:55 MCV 89.7 fl (80-94) 08/11/21 06:55 MCH 28.4 pg (28.0-34.0) 08/11/21 06:55 MCHC 31.7 g/dL (30.0-36.0) 08/11/21 06:55 RDW 17.1 % (12.1-15.1) H 08/11/21 06:55 Plt Count 266 10^3/cmm (130-400) 08/11/21 06:55 MPV 10.1 fL (7.4-10.4) 08/11/21 06:55 Neut % (Auto) 80.8 % 08/11/21 06:55 Lymph % (Auto) 8.8 % 08/11/21 06:55 Faulk % (Auto) 4.5 % 08/11/21 06:55 Eos % (Auto) 5.1 % 08/11/21 06:55 Baso % (Auto) 0.6 % 08/11/21 06:55 Neut # (Auto) 7.04 10^3/uL (1.8-7.7) 08/11/21 06:55 Lymph # (Auto) 0.8 10^3/uL (0.8-4.8) 08/11/21 06:55 Faulk # (Auto) 0.4 10^3/uL (0.2-0.9) 08/11/21 06:55 Eos # (Auto) 0.4 10^3/uL (0.0-0.8) 08/11/21 06:55 Baso # (Auto) 0.1 10^3/uL (0.0-0.1) 08/11/21 06:55 Nucleated RBC % (auto) 0 % 08/11/21 06:55 Nucleated RBCs # 0.0 /100WBC 08/11/21 06:55 Sodium 137 mmol/L (136-145) 08/11/21 06:55 Potassium 4.8 mmol/L (3.5-5.1) 08/11/21 06:55 Chloride 95 mmol/L (98-107) L 08/11/21 06:55 Carbon Dioxide 22 mmol/L (22-29) 08/11/21 06:55 Anion Gap 24.8 (5-19) H 08/11/21 06:55 BUN 53 mg/dL (6-20) H 08/11/21 06:55 Creatinine 8.7 mg/dL (0.7-1.2) H* 08/11/21 06:55 GFR Calculation 7.0 mL/min (90-130) L 08/11/21 06:55 Glucose 126 mg/dL (65-115) H 08/11/21 06:55 Calculated Osmolality 300 mOsm/kg (285-295) H 08/11/21 06:55 Lactic Acid 1.2 mmol/L (0.5-2.2) 08/11/21 07:41 Calcium 10.6 mg/dL (8.5-10.5) H 08/11/21 06:55 Magnesium 2.3 mg/dL (1.7-2.3) 08/11/21 06:55 Total Bilirubin 0.5 mg/dL (0.15-1.2) 08/11/21 06:55 AST 23 U/L (0-40) 08/11/21 06:55 ALT 15 U/L (0-41) 08/11/21 06:55 Alkaline Phosphatase 103 IU/L (40-130) 08/11/21 06:55 Creatine Kinase 78 U/L (39-308) 08/11/21 06:55 Total Protein 7.8 g/dL (6.6-8.7) 08/11/21 06:55 Albumin 4.8 g/dL (3.5-5.2) 08/11/21 06:55 Globulin 3.0 g/dL (1.3-4.6) 08/11/21 06:55 Lipase 39 U/L (13-60) 08/11/21 06:55 Discharge Plan Discharge Patient Disposition: Home Clinical Impression: Alport syndrome, ESRD on dialysis, Ascites Condition: Stable Prescriptions: No Action lactulose 10 gram/15 mL Solution 30 ml PO DAILY PRN (Reason: Constipation) 0RF hydralazine 25 mg tablet 25 mg PO TID Qty: 90 4RF pantoprazole 40 mg tablet,delayed release (DR/EC) 40 mg PO DAILY 0RF minoxidil 10 mg tablet 5 mg PO DAILY 0RF carvedilol 25 mg Tablet 25 mg PO BID 0RF nifedipine 90 mg Tablet Extended Release 90 mg PO DAILY 0RF vancomycin 1,000 mg recon soln See Rx Instructions .ROUTE .COMPLEX Qty: 10 0RF Rx Instructions: 1000mg after dialysis, on dialysis days, for 6 total weeks Discharge Orders: Discharge ED (Routine); Ordered 08/11/21 Ordered By: Remi Rivas Referrals: Osiel Chapin [Primary Care Provider] - Discharge Diet: Advance as tolerated Discharge Activity: Resume usual activity Patient Instructions: Opioid Safety Activity Restrictions/Additional Instructions: After discharge return immediately to the dialysis clinic so they can finish today's dialysis run follow-up with your primary care or transition manager within the week. Coding Level of Care Code ED Paper Rewinder Operator for Glendy Fwd Exam Comprehensive
--- NOTE | 2021-08-11 07:03 | CT_ITS ---
WS: [id number] CT ABDOMEN AND PELVIS WITH CONTRAST HISTORY: Abdominal pain. TECHNIQUE: Imaging performed of the abdomen and pelvis with IV contrast. Single phase imaging of the abdomen. Coronal and sagittal reformats are submitted. All CT scans at [facility] use at [address] one of these dose optimization techniques: automated exposure control; mA and/or kV adjustment per patient size (includes targeted exams where dose is matched to clinical indication); or iterative re construction. IV CONTRAST: Visipaque 320; 95 mL IV. Oral contrast: No DLP: 1926.63 mGy.cm COMPARISON: 06/07/2021 Lower thorax: Mild dependent changes at the lung bases. Moderate enlargement the heart. No effusion. Small hiatal hernia. Liver/biliary system: Liver is markedly enlarged measuring 23 cm in length. Markedly abnormal enhance ment and attenuation. Variable, mottled mosaic hepatic parenchymal pattern and perivascular lymphede ma. Liver is enlarged. Hepatic veins and IVC are dilated. Portal vein small caliber but no thrombus o r occlusion identified. Gallbladder: Normal. No gallstones or wall thickening. No pericholecystic fluid. Pancreas: Normal size pancreas and pancreatic duct. No adjacent inflammation. Spleen: Normal size spleen. No mass or infarct. Adrenal glands: Normal. Right kidney: Marked atrophy. Very minimal enhancement. Left kidney: Marked atrophy with minimal enhancement. Small cortical cysts present. Aorta: Normal. Lymphadenopathy: There are a few small periaortic lymph nodes. No gross adenopathy. Free fluid: Severe ascites and mesenteric edema and anasarca. GI tract: Stomach is not distended. No small bowel obstruction. GI tract is being centrally displaced by the large amount of ascites. Abdominal wall: Unremarkable abdominal wall. No hernia. Pelvis: Large amount of fluid in the pelvis. Urinary bladder is being displaced and compressed. There is a vague area of increased density in the dependent portion of the ascites. This may be a small ar ea of bilateral small lymph node. Not definitely seen on the prior study. Bones: Unremarkable. CT/CT abdomen pelvis w con* [id number] IMPRESSION: 1. Severe ascites with anasarca and mesenteric edema. 2. Marked hepatomegaly with changes consistent with passive hepatic congestion . This can be seen with Budd-Chiari syndrome, hepatic cirrhosis or viral hepati tis. 3. There are small para-aortic lymph nodes which may be reactive. 4. The area of increased density the pelvis only a small area of blood or smal l lymph node. 5. Moderate cardiomegaly.
[2021-08-11 07:15] LABS: Basophils # 0.1 10^3/uL (0.0-0.1); Basophils % 0.6 %; Eosinophils # 0.4 10^3/uL (0.0-0.8); Eosinophils % 5.1 %; Hematocrit 32.2 % (42.0-52.0); Hemoglobin 10.2 g/dL (11.7-16.6); Lymphocytes # 0.8 10^3/uL (0.8-4.8); Lymphocytes % 8.8 %; Mean Corpuscular HGB Conc 31.7 g/dL (30.0-36.0); Mean Corpuscular Hemoglobin 28.4 pg (28.0-34.0); Mean Corpuscular Volume 89.7 fl (80-94); Mean Platelet Volume 10.1 fL (7.4-10.4); Monocytes # 0.4 10^3/uL (0.2-0.9); Monocytes % 4.5 %; Neutrophils # 7.04 10^3/uL (1.8-7.7); Neutrophils % 80.8 %; Nucleated Red Blood Cells % 0 %; Platelet Count 266 10^3/cmm (130-400); Red Blood Count 3.59 10^6/uL (4.1-5.3); Red Cell Distribution Width 17.1 % (12.1-15.1); White Blood Count 8.7 10^3/uL (4.0-10.0)
[2021-08-11 07:48] LABS: Alanine Aminotransferase 15 U/L (0-41); Albumin Level 4.8 g/dL (3.5-5.2); Alkaline Phosphatase 103 IU/L (40-130); Anion Gap 24.8 (5-19); Aspartate Amino Transferase 23 U/L (0-40); Blood Urea Nitrogen 53 mg/dL (6-20); Calcium 10.6 mg/dL (8.5-10.5); Carbon Dioxide 22 mmol/L (22-29); Chloride 95 mmol/L (98-107); Creatine Phosphokinase 78 U/L (39-308); Glucose 126 mg/dL (65-115); Lipase 39 U/L (13-60); Magnesium 2.3 mg/dL (1.7-2.3); Osmolality Calculated 300 mOsm/kg (285-295); Potassium 4.8 mmol/L (3.5-5.1); Sodium 137 mmol/L (136-145); Total Bilirubin 0.5 mg/dL (0.15-1.2); Total Protein 7.8 g/dL (6.6-8.7)
[2021-08-11] MEDS: iodixanol 320 mg/mL 100mL Btl IV (08:16)
[2021-08-11] MEDS: morphine 4 mg/mL SDV 1 mL IVP (08:21)
[2021-08-11] MEDS: ondansetron 2 mg/ML SDV 2 mL 4 MG IVP (08:22)
[2021-08-11 08:23] LABS: Lactic Sepsis W/Reflex 1.2 mmol/L (0.5-2.2)
--- NOTE | 2021-08-11 08:59 | US_ITS ---
WS: [id number] ULTRASOUND-GUIDED PARACENTESIS CLINICAL INFORMATION: ascites COMPARISON: None. Procedure Informed consent: The risks, benefits, and alternatives of the procedure were discussed with the fletcher ent. Verbal and written consent was obtained. Timeout: A timeout was performed to confirm the correct patient, procedure, and site. Preparation: A suitable skin site was identified. The patient was prepped and draped in usual sterile fashion. Lidocaine 1% was used for local anesthesia. Catheter: 4 [place] One-step Yueh catheter. Side: LEFT Lower quadrant. Fluid Volume: 6000 ml Color: Clear yellow DISPOSITION: Discarded safely. Complications: None. US/US paracentesis abd w [id number] IMPRESSION: Uncomplicated ultrasound-guided paracentesis. Removal of 6000 cc
[2021-08-12 02:50] LABS: Bacillus cereus group Not Detected (NOT DETECT); Bacillus subtillis group Not Detected (NOT DETECT); Corynebacterium Not Detected (NOT DETECT); Cutibacterium acnes (P.acnes) Not Detected (NOT DETECT); Enterococcus Not Detected (NOT DETECT); Enterococcus faecalis Not Detected (NOT DETECT); Enterococcus faecium Not Detected (NOT DETECT); Lactobacillus species Not Detected (NOT DETECT); Listeria Not Detected (NOT DETECT); Listeria monocytogenes Not Detected (NOT DETECT); Micrococcus Not Detected (NOT DETECT); Pan Candida Not Detected (NOT DETECT); Pan Gram-Negative Not Detected (NOT DETECT); Staphylococcus epidermidis Not Detected (NOT DETECT); Staphylococcus lugdunensis Not Detected (NOT DETECT); Staphylococcus species Detected (NOT DETECT); Streptococcus agalactiae Not Detected (NOT DETECT); Streptococcus anginosus group Not Detected (NOT DETECT); Streptococcus pneumoniae Not Detected (NOT DETECT); Streptococcus pyogenes Not Detected (NOT DETECT); Streptococcus species Not Detected (NOT DETECT); mecA Detected (NOT DETECT); mecC Not Detected (NOT DETECT)
== END 2021-08-11 12:04 | disposition home or self-care (01) ==
PROVIDERS: Emergency Provider Family Medicine; PCP Internal Medicine Cardiovascular Disease
DX: Q87.81 Alport syndrome (principal); R18.8 Other ascites; I13.2 Hypertensive heart and chronic kidney disease with heart failure and with stage 5 chronic kidney disease, or end stage renal disease; N18.6 End stage renal disease; I50.30 Unspecified diastolic (congestive) heart failure; Z99.2 Dependence on renal dialysis; F17.210 Nicotine dependence, cigarettes, uncomplicated
CPT/HCPCS: 36415; 49083; 74177; 80053; 82550; 83605; 83690; 83735; 85025; 87040; 87077; 87150; 87186; 87205; 96374; 96375; 99284; J2270; J2405; Q9967

== ENCOUNTER 2021-08-16 13:37 | Emergency (ER) | payer MEDICAID, SELFPAY ==
[2021-08-16] VITALS (13 sets, daily range): BP systolic 83–112; BP diastolic 55–76; PULSE 70–99; RESP 16–30; TEMP 36–36.3; O2SAT 94–100; BMI 27.1
--- NOTE | 2021-08-16 13:41 | CTR_ITS ---
PROCEDURE INFORMATION: Exam: CT Abdomen And Pelvis With Contrast Exam date and time: 08/16/2021 2:36 PM Age: 36 years old Clinical indication: Abdominal pain; Prior surgery; Additional info: Abd pain TECHNIQUE: Imaging protocol: Computed tomography of the abdomen and pelvis with contrast. Radiation optimization: All CT scans at this facility use at least one of these dose optimization techniques: automated exposure control; mA and/or kV adjustment per patient size (includes targeted exams where dose is matched to clinical indication); or iterative reconstruction. Contrast material: VISI 320; Contrast volume: 95 ml; Contrast route: INTRAVENOUS (IV); COMPARISON: CT abdomen pelvis w con* [id number] 08/11/2021 8:14 AM RADIATION DOSE METRICS: Total DLP (mGy-cm): 1845.46 FINDINGS: Lungs: Bibasilar atelectasis. Heart: Mild cardiomegaly. Liver: Hepatomegaly Gallbladder and bile ducts: Minimal cholelithiasis may be present. Pancreas: Normal. No ductal dilation. Spleen: Normal. No splenomegaly. Adrenal glands: Normal. No mass. Kidneys and ureters: Kidneys appear atrophic bilaterally. Stomach and bowel: Unremarkable. No obstruction. No mucosal thickening. Appendix: No evidence of appendicitis. Intraperitoneal space: Large amount of ascites throughout the abdomen. Vasculature: Unremarkable. No abdominal aortic aneurysm. Lymph nodes: Several prominent low-density lymph nodes in the inguinal regions bilaterally measuring up to 11 mm short axis, nonspecific. Urinary bladder: Unremarkable as visualized. Reproductive: Unremarkable as visualized. Bones/joints: Unremarkable. No acute fracture. Soft tissues: Unremarkable. CT/CT abdomen pelvis w con* [id number] IMPRESSION: 1. Bibasilar atelectasis. 2. Mild cardiomegaly. 3. Large amount of ascites throughout the abdomen. 4. Several prominent low-density lymph nodes in the inguinal regions bilaterally measuring up to 11 mm short axis, nonspecific. 5. Minimal cholelithiasis may be present. 6. Hepatomegaly 7. Kidneys appear atrophic bilaterally.
--- NOTE | 2021-08-16 13:41 | XRR_ITS ---
PROCEDURE INFORMATION: Exam: XR Chest Exam date and time: 08/16/2021 1:57 PM Age: 36 years old Clinical indication: Sternal or substernal pain; Prior surgery; Surgery date: <1 month; Surgery type: Dialysis cath; Patient HX: C/O cp - recent paracentesis now + cultures; Additional info: Dyspnea/cough TECHNIQUE: Imaging protocol: XR of the chest. Views: 1 view. COMPARISON: CR XR chest 1V portable [id number] 06/27/2021 12:15 PM FINDINGS: Tubes, catheters and devices: Left central venous catheter tip over the right atrium. Lungs: Unremarkable. No consolidation. Pleural spaces: Unremarkable. No pleural effusion. No pneumothorax. Heart/Mediastinum: Cardiomegaly. Bones/joints: Unremarkable. XR/XR chest 1V portable [id number] IMPRESSION: 1. Lungs are clear. 2. Cardiomegaly. 3. Left central venous catheter tip over the right atrium.
--- NOTE | 2021-08-16 13:47 | W.ED.GENADLT ---
HPI - General Adult General: Chief complaint: Chest Pain Stated complaint: CHEST PAIN Time Seen by Provider: 08/16/21 13:41 Source: patient Mode of arrival: ambulatory Limitations: no limitations History of Present Illness: 36-year-old male returns emergency room after cultures came back positive yesterday. He was seen recently had paracentesis and returned to dialysis clinic for complete the completion of his routine dialysis run. Time he was seen blood cultures were done because of his history of multiple episodes of sepsis in the past and SBE. All 4 of his cultures grew out MRSA. Patient did not attend dialysis yesterday because he did not feel well and state he had a fever. He has had some palpitations today. Onset (ago): day(s) Location: chest and abdomen Radiation: back Severity: moderate Quality: aching Pain Consistency: constant Relieving factors: none Exacerbating factors: none Associated symptoms: Reports chest pain, decreased appetite, dyspnea, fevers/chills, malaise, nausea, palpitations, short of breath and weakness; Deny confusion, cough, diaphoresis, headache(s), rash, seizures, syncope or vomiting Treatments prior to arrival: none Review of Systems Const: Reports: fever(s), chills, body aches, change in appetite and malaise; Denies: diaphoresis ENMT: Denies: throat pain, ear or mastoid pain, nasal discharge or nasal congestion Card: Reports: chest pain, palpitations and irregular heart rhythm; Denies: syncope Resp: Reports: dyspnea GI: Reports: nausea; Denies: vomiting : Denies: flank pain, dysuria, urinary frequency or urinary urgency Skin/Breast: Denies: rash Neuro: Denies: headache(s) or confusion PFS ED PFSH: Medical History Alport syndrome Anemia in chronic kidney disease Dialysis AV fistula malfunction left forearm Diastolic heart failure with LVH 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 Suggestive of endocarditis. Features of severe mitral regurgitation with a regurgitant fraction of 69.6% Moderately severe tricuspid regurgitation Normal LV size ejection fraction. Biatrial enlargement, right worse than the left. No pericardial effusion. Possible small patent foramen ovale. HTN (hypertension) Jugular vein occlusion, right MRSA bacteremia (05/2021) Severe mitral regurgitation Tricuspid regurgitation Surgical History Fistula Left forearm, non-functioning 05/2021 History of incision and drainage (06/11/21) right forearm abscess S/P hemodialysis catheter insertion -Tunneled right IJ HD catheter placed in [place], [place] removed 06/10/21 -Right femoral HD line placed 06/13/21 -Left IJ tunneled catheter placed 06/18/21 with same day removal of right femoral temporary HD catheter - Left IJ tunneled catheter exchanged to temporary catheter 06/27/2021 Family History Other Alport syndrome ESRD (end stage renal disease) Social History Smoking and tobacco status: current some day smoker Alcohol intake: never Other details last substance use: Marijuana. Denies any other. Denies IVDU. Lives independently: Yes Household members: spouse Marital status: Current occupational status: unemployed Physical Exam Const: COMMON NORMALS: no acute distress GENERAL APPEARANCE: cooperative and comfortable ORIENTATION/CONSCIOUSNESS: Yes awake, Yes oriented to person, Yes oriented to place and Yes oriented to time HENMT: COMMON NORMALS: normocephalic, atraumatic and hearing grossly normal bilaterally HEAD & SCALP: normocephalic and atraumatic Neck/C-Spine: COMMON NORMALS: no JVD Resp: COMMON NORMALS: normal respiratory effort, No retractions, No use of accessory muscles and clear to auscultation bilaterally AUSCULTATION: clear to auscultation bilaterally Cardio: COMMON NORMALS: no JVD, regular rate, regular rhythm and No murmurs present (Cardio) RATE: regular rate RHYTHM: regular rhythm GI: COMMON NORMALS: Soft to palpation and No hepatosplenomegaly present AUSCULTATION: Yes normoactive bowel sounds PALPATION: Yes Soft to palpation, No Tenderness to palpation present (GI), No Guarding due to palpation present (GI) and Yes No hepatosplenomegaly present Extremity: COMMON NORMALS: normal to inspection, capillary refill normal, no clubbing, cyanosis or edema, no calf tenderness and no pedal edema Neuro: SENSORIUM/ORIENTATION: Yes oriented to person, Yes oriented to place and Yes oriented to time Skin: COMMON NORMALS: no rashes or lesions noted GENERAL SKIN EXAM: no rashes or lesions noted Course Vital Signs: Vital signs: Vital Signs Temperature 97.4 F L 08/16/21 19:03 Pulse Rate 91 08/16/21 19:03 Respiratory Rate 30 H 08/16/21 19:03 Blood Pressure 107/67 08/16/21 19:03 Pulse Oximetry 94 08/16/21 19:03 [facility] - General Adult Medical Decision Making Sudden onset of severe bradycardia which she was symptomatic became hypotensive. He was given atropine. Also aggressively treated his hyperkalemia. Talk to nephrology and cardiology started him on dopamine which improved his pressure and his heart rate after he received the atropine and sustained it. Contacted [facility] because the patient was a scheduled to have valvuloplasty there. Concerned about admitting him here because of his con commitment liver and renal disease as well as his SBE, MRSA and now his new onset of arrhythmia. They agreed to accept on transfer patient was transferred via air ambulance to [facility]. Medical Records I reviewed the patient's medical records. Lab Data I reviewed the patient's lab results. : 08/16/21 12:44 08/16/21 18:46 Radiology Impressions Abdomen/Pelvis CT 08/16/21 13:41 IMPRESSION: 1. Bibasilar atelectasis. 2. Mild cardiomegaly. 3. Large amount of ascites throughout the abdomen. 4. Several prominent low-density lymph nodes in the inguinal regions bilaterally measuring up to 11 mm short axis, nonspecific. 5. Minimal cholelithiasis may be present. 6. Hepatomegaly 7. Kidneys appear atrophic bilaterally. Chest X-Ray 08/16/21 13:41 IMPRESSION: 1. Lungs are clear. 2. Cardiomegaly. 3. Left central venous catheter tip over the right atrium. Laboratory Results WBC 10.9 10^3/uL (4.0-10.0) H 08/16/21 12:44 RBC 3.27 10^6/uL (4.1-5.3) L 08/16/21 12:44 Hgb 9.3 g/dL (11.7-16.6) L 08/16/21 12:44 Hct 28.7 % (42.0-52.0) L 08/16/21 12:44 MCV 87.8 fl (80-94) 08/16/21 12:44 MCH 28.4 pg (28.0-34.0) 08/16/21 12:44 MCHC 32.4 g/dL (30.0-36.0) 08/16/21 12:44 RDW 17.5 % (12.1-15.1) H 08/16/21 12:44 Plt Count 206 10^3/cmm (130-400) 08/16/21 12:44 MPV 11.6 fL (7.4-10.4) H 08/16/21 12:44 Neut % (Auto) 88.7 % 08/16/21 12:44 Lymph % (Auto) 5.6 % 08/16/21 12:44 [place] % (Auto) 3.7 % 08/16/21 12:44 Eos % (Auto) 1.0 % 08/16/21 12:44 Baso % (Auto) 0.5 % 08/16/21 12:44 Neut # (Auto) 9.64 10^3/uL (1.8-7.7) H 08/16/21 12:44 Lymph # (Auto) 0.6 10^3/uL (0.8-4.8) L 08/16/21 12:44 [place] # (Auto) 0.4 10^3/uL (0.2-0.9) 08/16/21 12:44 Eos # (Auto) 0.1 10^3/uL (0.0-0.8) 08/16/21 12:44 Baso # (Auto) 0.1 10^3/uL (0.0-0.1) 08/16/21 12:44 Nucleated RBC % (auto) 0 % 08/16/21 12:44 Nucleated RBCs # 0.0 /100WBC 08/16/21 12:44 Specimen Type Arterial 08/16/21 17:06 Sample Site Brachial, right 08/16/21 17:06 ABG pH 7.35 (7.35-7.45) 08/16/21 17:06 ABG pCO2 34.9 mmHg (35-45) L 08/16/21 17:06 ABG pO2 44.1 mmHg (80.0-100.0) L 08/16/21 17:06 ABG HCO3 19.2 mmol/L (22-26) L 08/16/21 17:06 ABG O2 Saturation 72.6 08/16/21 17:06 ABG Base Excess -5.8 mmol/L (-2.0-2.0) L 08/16/21 17:06 Juan Test Pos 08/16/21 17:06 A-a O2 Gradient 21.9 mmHg (5-10) H 08/16/21 17:06 Hematocrit 29.1 % (42-52) L 08/16/21 17:06 Hgb O2 Saturation 70.9 % (95-100) L 08/16/21 17:06 Carboxyhemoglobin 1.8 %THgb (0.4-20.1) 08/16/21 17:06 Methemoglobin 0.6 % (0.4-1.5) 08/16/21 17:06 Total Hemoglobin 9.5 g/dL (14-18) L 08/16/21 17:06 Sodium 128.0 mmol/L (131-143) L 08/16/21 17:06 Potassium 6.6 mmol/L (3.5-5.0) H 08/16/21 17:06 Glucose 189.0 mg/dL (70-115) H 08/16/21 17:06 Ionized Calcium 1.2 mmol/L (1.1-1.4) 08/16/21 17:06 O2 Delivery Device Nc 08/16/21 17:06 O2 Liters/Min 4.0 % 08/16/21 17:06 FiO2 36.0 % 08/16/21 17:06 Plastic Products Sales Representative ID [place] 08/16/21 17:06 Sodium 129 mmol/L (136-145) L 08/16/21 18:46 Potassium 5.8 mmol/L (3.5-5.1) H 08/16/21 18:46 Chloride 89 mmol/L (98-107) L 08/16/21 18:46 Carbon Dioxide 18 mmol/L (22-29) L 08/16/21 18:46 Anion Gap 27.8 (5-19) H 08/16/21 18:46 BUN 77 mg/dL (6-20) H 08/16/21 18:46 Creatinine 11.0 mg/dL (0.7-1.2) H* 08/16/21 18:46 GFR Calculation 5.3 mL/min (90-130) L 08/16/21 18:46 Glucose 62 mg/dL (65-115) L 08/16/21 18:46 POC Glucose 128 mg/dL (70-110) H 08/16/21 16:41 Calculated Osmolality 289 mOsm/kg (285-295) 08/16/21 18:46 Calcium 8.6 mg/dL (8.5-10.5) 08/16/21 18:46 Total Bilirubin 0.5 mg/dL (0.15-1.2) 08/16/21 12:44 AST 16 U/L (0-40) 08/16/21 12:44 ALT 15 U/L (0-41) 08/16/21 12:44 Alkaline Phosphatase 122 IU/L (40-130) 08/16/21 12:44 Troponin T Baseline 237 ng/L (0-15) H* 08/16/21 12:44 Troponin T 120 Minute 218.7 ng/L (0-15) H 08/16/21 15:30 Delta Troponin T -18.3 ABS# (0-10) L 08/16/21 15:30 Troponin T Hi Sens 6Hr 196.7 ng/L (0-15) H 08/16/21 18:14 Troponin T Hi Sens 6Hr Delta -40.3 ng/L (0-12) L 08/16/21 18:14 NT-Pro-B Natriuret Pep 022646 pg/mL (0-125) H 08/16/21 12:44 Total Protein 6.3 g/dL (6.6-8.7) L 08/16/21 12:44 Albumin 3.5 g/dL (3.5-5.2) 08/16/21 12:44 Globulin 2.8 g/dL (1.3-4.6) 08/16/21 12:44 Lipase 16 U/L (13-60) 08/16/21 12:44 SARS-CoV-2 Ag (Rapid) Negative (Negative) 08/16/21 17:45 Critical Care Time Critical Care Time: Critical Care Time: Yes Total Critical Care Time: 45 Attestation: The high probability of a clinically significant, sudden or life threatening deterioration of the patient's cardiovascular renal system(s) required my full and direct attention, intervention and personal management. The critical care time is as shown. This time is in addition to time spent performing any reported procedures but includes the following: [x] Data and vital sign review and interpretation [x] Patient assessment, examination and intervention [x] Documentation [x] Medication orders and management Discharge Plan Discharge Patient Disposition: Xfer Short-Term Hosp Clinical Impression: Hyperkalemia, End-stage renal disease (ESRD), Septicemia, Liver failure, Bradycardia Condition: Stable Referrals: Osiel Chapin [Primary Care Provider] - Coding Level of Care Code ED Furnace Door Tender for Glendy Sanchez
[2021-08-16] MEDS: ondansetron 2 mg/ML SDV 2 mL 4 MG IVP (13:54)
[2021-08-16 13:58] LABS: Basophils # 0.1 10^3/uL (0.0-0.1); Basophils % 0.5 %; Eosinophils # 0.1 10^3/uL (0.0-0.8); Hematocrit 28.7 % (42.0-52.0); Hemoglobin 9.3 g/dL (11.7-16.6); Lymphocytes # 0.6 10^3/uL (0.8-4.8); Lymphocytes % 5.6 %; Mean Corpuscular HGB Conc 32.4 g/dL (30.0-36.0); Mean Corpuscular Hemoglobin 28.4 pg (28.0-34.0); Mean Corpuscular Volume 87.8 fl (80-94); Mean Platelet Volume 11.6 fL (7.4-10.4); Monocytes # 0.4 10^3/uL (0.2-0.9); Monocytes % 3.7 %; Neutrophils # 9.64 10^3/uL (1.8-7.7); Neutrophils % 88.7 %; Nucleated Red Blood Cells % 0 %; Platelet Count 206 10^3/cmm (130-400); Red Blood Count 3.27 10^6/uL (4.1-5.3); Red Cell Distribution Width 17.5 % (12.1-15.1); White Blood Count 10.9 10^3/uL (4.0-10.0)
--- NOTE | 2021-08-16 13:59 | PC.NURSE ---
PT TEMP 96.8. 3 WARM BLANKETS GIVEN TO PATIENT.
--- NOTE | 2021-08-16 14:15 | PC.NURSE ---
Dr. Rivas notified of pt requesting of pain meds. Pt currently yelling that he is hurting. No new orders received.
--- NOTE | 2021-08-16 14:15 | ECG_ITS ---
[facility] Test Date: 2021-08-16 Pat Name: Link Ann Department: Room: Gender: Male Marketing Services Manager: : 1985 Requested By: Remi Pedro Order Number: [id number] Maite MD: Adarsh Hanson M.D. Measurements Intervals [place] Rate: 84 P: 17 PA: 184 QRS: 80 QRSD: 109 T: 63 QT: 368 QTc: 435 Interpretive Statements SINUS RHYTHM Compared to ECG 06/27/2021 10:20:05 No significant changes Electronically Signed On 08-17-2021 9:39:01 CDT by Adarsh Hanson M.D. [email or web address]/store/NU/[id number] f
[2021-08-16 14:23] LABS: Alanine Aminotransferase 15 U/L (0-41); Albumin Level 3.5 g/dL (3.5-5.2); Alkaline Phosphatase 122 IU/L (40-130); Aspartate Amino Transferase 16 U/L (0-40); Calcium 9.2 mg/dL (8.5-10.5); Carbon Dioxide 17 mmol/L (22-29); Chloride 89 mmol/L (98-107); Globulin 2.8 g/dL (1.3-4.6); Glomerular Filtration Rate 4.3 mL/min (90-130); Glucose 129 mg/dL (65-115); Lipase 16 U/L (13-60); Osmolality Calculated 301 mOsm/kg (285-295); Sodium 132 mmol/L (136-145); Total Bilirubin 0.5 mg/dL (0.15-1.2); Total Protein 6.3 g/dL (6.6-8.7)
[2021-08-16] MEDS: iodixanol 320 mg/mL 100mL Btl IV (14:39)
[2021-08-16 14:43] LABS: Blood Urea Nitrogen 84 mg/dL (6-20)
--- NOTE | 2021-08-16 15:00 | PC.NURSE ---
Dr. Rivas notified about pt pain status. Pt continues to yell in pain, stating he needs something for his chest pain.
[2021-08-16] MEDS: vancomycin 1,000 MG in sodium chloride 0.9% 250 ML 250 MG IV (15:07)
--- NOTE | 2021-08-16 15:10 | ECG_ITS ---
[facility] Test Date: 2021-08-16 Pat Name: Link Ann Department: Room: Gender: Male Salicylic Acid Blender: : 1985 Requested By: Remi Pedro Order Number: [id number] Maite MD: Adarsh Hanson M.D. Measurements Intervals [place] Rate: 72 P: 34 [place]: 201 QRS: 95 QRSD: 113 T: 55 QT: 403 QTc: 444 Interpretive Statements SINUS RHYTHM BORDERLINE RIGHT AXIS DEVIATION [QRS AXIS > 90] MODERATE INTRAVENTRICULAR CONDUCTION DELAY [110+ ms QRS DURATION] Compared to ECG 08/16/2021 13:49:12 Intraventricular conduction delay now present Electronically Signed On 08-17-2021 9:35:51 CDT by Adarsh Hanson M.D. [id number]
[2021-08-16] MEDS: morphine 4 mg/mL SDV 1 mL IVP (15:16)
[2021-08-16] MEDS: atropine 0.1 mg/mL Syr 10 mL 0.5 MG IVP (15:56)
[2021-08-16] MEDS: calcium chloride 10% Syr 10 mL 1 GM IVP (16:00)
[2021-08-16 16:11] LABS: Troponin(5th) Baseline 237 ng/L (0-15)
[2021-08-16] MEDS: sodium polystyrene sulfonate 15 gm/60 mL Btl 30 GM PR (16:25)
[2021-08-16] MEDS: DOPamine drip 400 MG/250 ML PREMIX 17.01 MG IV (16:26)
[2021-08-16 16:27] LABS: Troponin 5 2HR Delta -18.3 ABS# (0-10)
[2021-08-16 16:31] LABS: Troponin 5 2HR 218.7 ng/L (0-15)
--- NOTE | 2021-08-16 16:34 | PC.NURSE ---
1555- Called to room by Nurse Tech, HR in the 30's. This RN and FLOYD Bella immediately at bedside. Pt not responsive, Dr. Rivas called to Room. Crash cart brought to bedside by FLOYD Uribe. Pt placed on Zoll. 1556- Dr. Rivas at bedside, verbal order to give 0.5 amp of Atropine. Atropine then given. 1600- HR now in the 70's, pt responsive. Verbal order to give one amp of Calcium chloride. Calcium chloride given. Verbal order to start Dopamine gtt. 1609- Dopamine gtt started. Attempting to start 2nd IV line. 1615- 2nd IV started. Vanc restarted to new IV line to continue infusion. Pt alert.
[2021-08-16 16:44] LABS: Glucose Point of Care 128 mg/dL (70-110)
[2021-08-16 16:44] LABS: Glucose Point of Care 150 mg/dL (70-110)
--- NOTE | 2021-08-16 16:45 | PC.NURSE ---
Dr. Chang called and gave verbal order for hemodialysis. FLOYD Cole with dialysis to come to ED.,
--- NOTE | 2021-08-16 16:52 | PC.NURSE ---
PT TOLD TRIAGE NURSE THAT HE WENT TO DIALYSIS YESTERDAY, BUT TOLD HIS OTHER NURSE THAT HE DID NOT.
--- NOTE | 2021-08-16 17:10 | ECG_ITS ---
[facility] Test Date: 2021-08-16 Pat Name: Link Ann Department: Room: Gender: Male Information Technology Professor: : 1985 Requested By: Remi Pedro Order Number: [id number] Maite MD: Adarsh Hanson M.D. Measurements Intervals [place] Rate: 32 P: [place]: QRS: 108 QRSD: 153 T: 38 QT: 524 QTc: 387 Interpretive Statements Sinus bradycardia with sinus arrhythmia INTRAVENTRICULAR CONDUCTION DELAY [130+ ms QRS DURATION] POSSIBLE RIGHT VENTRICULAR HYPERTROPHY [SOME/ALL OF: PROMINENT R IN V1, LATE TRANSITION, RAD, CAROLE, SSS] CRITICAL TEST RESULT Compared to ECG 08/16/2021 15:20:01 Sinus rhythm no longer present Electronically Signed On 08-17-2021 9:40:19 CDT by Adarsh Hanson M.D. [id number]
[2021-08-16] MEDS: insulin regular-human 100 units/1 mL 10 UNIT IVP (17:16)
[2021-08-16 17:19] LABS: ABG PCO2 34.9 mmHg (35-45); ABG PH Result 7.35 (7.35-7.45); Alveolar-Arterial Oxygen Gradi 21.9 mmHg (5-10); Arterial Blood Gas Hematocrit 29.1 % (42-52); Base Excess ABG -5.8 mmol/L (-2.0-2.0); Blood Gas Allen Test Pos; Blood Gas Operator Identificat MONRO; Blood Gas Sample Site Brachial, right; Blood Gas Sample Type Arterial; Carboxyhemoglobin 1.8 %THgb (0.4-20.1); HCO3 ABG 19.2 mmol/L (22-26); HGB O2 Sat 70.9 % (95-100); Ionized Calcium Level - ABG 1.2 mmol/L (1.1-1.4); Methemoglobin 0.6 % (0.4-1.5); Oxygen Device NC; Oxygen Saturation ABG 72.6; PO2 ABG 44.1 mmHg (80.0-100.0); Potassium Level - ABG 6.6 mmol/L (3.5-5.0); Total Hemoglobin 9.5 g/dL (14-18)
[2021-08-16] MEDS: sodium bicarbonate 8.4% 1 mEq/mL 50mL Syr 100 MEQ IVP (17:19)
--- NOTE | 2021-08-16 17:27 | PC.NURSE ---
Pt SaO2 78-85% on 4LNC. Pt placed on 15L nonrebreather, SaO2 increased to the 90's. RT informed.
[2021-08-16] MEDS: dextrose 10% 1,000 ML 50 ML IV (17:40)
[2021-08-16 18:15] LABS: SARS Covid-2 Antigen Negative (Negative)
--- NOTE | 2021-08-16 18:20 | PC.NURSE ---
FLOYD Cole called and notified of pt transferring to [facility] to inform Dr. Chang of pt being transfer. Bed assignment received.
--- NOTE | 2021-08-16 18:21 | PC.NURSE ---
Attempted to call reports to [facility] ICU; RN to call call back- call back number given.
--- NOTE | 2021-08-16 18:45 | PC.NURSE ---
[facility] here to transport pt
[2021-08-16 18:48] LABS: Troponin 5 6HR 196.7 ng/L (0-15)
[2021-08-16 19:25] LABS: Blood Urea Nitrogen 77 mg/dL (6-20); Calcium 8.6 mg/dL (8.5-10.5); Carbon Dioxide 18 mmol/L (22-29); Glomerular Filtration Rate 5.3 mL/min (90-130); Glucose 62 mg/dL (65-115)
[2021-08-16 19:30] LABS: Anion Gap 27.8 (5-19); Chloride 89 mmol/L (98-107); Osmolality Calculated 289 mOsm/kg (285-295); Potassium 5.8 mmol/L (3.5-5.1); Sodium 129 mmol/L (136-145)
--- NOTE | 2021-08-16 21:10 | ECG_ITS ---
[facility] Test Date: 2021-08-16 Pat Name: Link Ann Department: Room: Gender: Male Building Inspector: : 1985 Requested By: Remi Pedro Order Number: [id number] Maite MD: Adarsh Hanson M.D. Measurements Intervals [place] Rate: 89 P: 59 [place]: 171 QRS: 88 QRSD: 114 T: 16 QT: 363 QTc: 444 Interpretive Statements SINUS RHYTHM MODERATE INTRAVENTRICULAR CONDUCTION DELAY [110+ ms QRS DURATION] Compared to ECG 08/16/2021 15:59:53 Atrial fibrillation no longer present Electronically Signed On 08-17-2021 9:40:40 CDT by Adarsh Hanson M.D. [email or web address] memorial hospitalDebtLESS Community/store/[id number]
--- NOTE | 2021-08-17 06:40 | PC.NURSE ---
Called and spoke with the nurse for the patient at [facility] about patient's positive blood cultures. Nurse will notify the physician.
[2021-08-17 08:16] LABS: Bacillus cereus group Not Detected (NOT DETECT); Bacillus subtillis group Not Detected (NOT DETECT); Corynebacterium Not Detected (NOT DETECT); Cutibacterium acnes (P.acnes) Not Detected (NOT DETECT); Enterococcus Not Detected (NOT DETECT); Enterococcus faecalis Not Detected (NOT DETECT); Enterococcus faecium Not Detected (NOT DETECT); Lactobacillus species Not Detected (NOT DETECT); Listeria Not Detected (NOT DETECT); Listeria monocytogenes Not Detected (NOT DETECT); Micrococcus Not Detected (NOT DETECT); Pan Candida Not Detected (NOT DETECT); Pan Gram-Negative Not Detected (NOT DETECT); Staphylococcus epidermidis Not Detected (NOT DETECT); Staphylococcus lugdunensis Not Detected (NOT DETECT); Staphylococcus species Detected (NOT DETECT); Streptococcus agalactiae Not Detected (NOT DETECT); Streptococcus anginosus group Not Detected (NOT DETECT); Streptococcus pneumoniae Not Detected (NOT DETECT); Streptococcus pyogenes Not Detected (NOT DETECT); Streptococcus species Not Detected (NOT DETECT); mecA Detected (NOT DETECT); mecC Not Detected (NOT DETECT)
== END 2021-08-16 19:09 | disposition short-term general hospital (02) ==
PROVIDERS: Emergency Medicine; Emergency Provider Family Medicine; PCP Internal Medicine Cardiovascular Disease
DX: A41.9 Sepsis, unspecified organism (principal); R00.1 Bradycardia, unspecified; I95.9 Hypotension, unspecified; E87.5 Hyperkalemia; I12.0 Hypertensive chronic kidney disease with stage 5 chronic kidney disease or end stage renal disease; N18.6 End stage renal disease; K72.90 Hepatic failure, unspecified without coma; Z99.2 Dependence on renal dialysis; Z91.15 Patient's noncompliance with renal dialysis; Z72.0 Tobacco use; Z86.14 Personal history of Methicillin resistant Staphylococcus aureus infection
CPT/HCPCS: 36415; 36416; 36600; 71045; 74177; 80048; 80051; 80053; 82330; 82805; 82962; 83690; 83880; 84484; 85025; 87040; 87077; 87150; 87186; 87205; 87426; 93005; 94640; 94660; 96365; 96366; 96367; 96375; 99291; 99292; J0461; J1265; J1815; J2270; J2405; J3370; J3490; J7050; J7611; Q9967